=== PATIENT | female | born 1950 | race Caucasian/White ===

== ENCOUNTER 2020-08-26 08:26 | Outpatient (REF) | payer OTHER, SELFPAY ==
--- NOTE | 2020-08-26 08:48 | FL_ITS ---
EXAMINATION: XR GI SERIES CLINICAL INFORMATION: Gastroesophageal reflux disease. COMPARISON: None. TECHNIQUE: Upper GI was performed using thin and thick barium and effervescent granules. Barium tablet was also administered. FINDINGS: There is a large esophageal hernia or intrathoracic stomach. There is significant gastroesophageal reflux. No esophageal stricture, mass or mucosal irregularity is seen. The barium tablet passed into the stomach. The stomach is difficult to evaluate due to its orientation. No mass or ulcer is appreciated. No evidence of gastric outlet obstruction is seen. There are several duodenal diverticuli. There are cardiac pacemaker leads. FLUOROSCOPY TIME: 1.9 minutes. DOSE AREA PRODUCT: 16.216 Gy-cm2. IMPRESSION: Large esophageal hernia or intrathoracic stomach. Significant gastroesophageal reflux.
== END 2020-08-26 08:27 | disposition home or self-care (01) ==
LOC: HO.XRAY 08:26
PROVIDERS: PCP Internal Medicine; Visit Provider Internal Medicine
DX: K21.9 Gastro-esophageal reflux disease without esophagitis (principal); K44.9 Diaphragmatic hernia without obstruction or gangrene
CPT/HCPCS: 74240

== ENCOUNTER → 2020-09-05 11:20 | Outpatient (BNVA) | payer OTHER, SELFPAY | PROVIDERS: PCP Internal Medicine; Referring Provider Internal Medicine; Visit Provider Internal Medicine | DX: Z86.73 Personal history of transient ischemic attack (TIA), and cerebral infarction without residual deficits (principal); Z51.81 Encounter for therapeutic drug level monitoring; Z79.01 Long term (current) use of anticoagulants | CPT/HCPCS: 85610 ==

== ENCOUNTER 2020-09-12 13:44 | Outpatient (REF) | payer OTHER, SELFPAY ==
--- NOTE | 2020-11-04 16:58 | MHC.HEMONC ---
CT GUIDED Bx OF THE ABDOMEN SCHEDULED FOR 11/05/2020 RESCHEDULED (TBD), AWAITING PA (APPROVAL) STATUS. SPOKE WITH LENCHO ZEE AT 1700 TO INFORM HIM OF PROCEDURE CX
== END 2020-09-12 13:45 | disposition home or self-care (01) ==
LOC: HO.LAB 13:44
PROVIDERS: PCP Internal Medicine; Visit Provider Internal Medicine
DX: Z20.828 Contact with and (suspected) exposure to other viral communicable diseases (principal)
CPT/HCPCS: 87635

== ENCOUNTER → 2020-09-19 11:35 | Outpatient (BNVA) | payer OTHER, SELFPAY | PROVIDERS: PCP Internal Medicine; Visit Provider Internal Medicine | DX: Z86.73 Personal history of transient ischemic attack (TIA), and cerebral infarction without residual deficits (principal); Z51.81 Encounter for therapeutic drug level monitoring; Z79.01 Long term (current) use of anticoagulants | CPT/HCPCS: 85610; 99211 ==

== ENCOUNTER → 2020-09-26 11:27 | Outpatient (BNVA) | payer OTHER, SELFPAY | PROVIDERS: PCP Internal Medicine; Visit Provider Internal Medicine | DX: Z86.73 Personal history of transient ischemic attack (TIA), and cerebral infarction without residual deficits (principal); Z79.01 Long term (current) use of anticoagulants; Z51.81 Encounter for therapeutic drug level monitoring | CPT/HCPCS: 85610; 99211 ==

== ENCOUNTER → 2020-10-10 11:27 | Outpatient (BNVA) | payer OTHER, SELFPAY | PROVIDERS: PCP Internal Medicine; Visit Provider Internal Medicine | DX: Z86.73 Personal history of transient ischemic attack (TIA), and cerebral infarction without residual deficits (principal); Z51.81 Encounter for therapeutic drug level monitoring; Z79.01 Long term (current) use of anticoagulants | CPT/HCPCS: 85610; 99211 ==

== ENCOUNTER 2020-10-15 11:29 | Outpatient (REF) | payer OTHER, SELFPAY | END 2020-10-15 11:30 | disposition home or self-care (01) | LOC: HO.LAB 11:29 | PROVIDERS: PCP Internal Medicine; Visit Provider Internal Medicine | DX: Z20.828 Contact with and (suspected) exposure to other viral communicable diseases (principal) | CPT/HCPCS: C9803; U0003 ==

== ENCOUNTER → 2020-10-28 11:30 | Outpatient (BNVA) | payer OTHER, SELFPAY | PROVIDERS: PCP Internal Medicine; Referring Provider Internal Medicine; Visit Provider Internal Medicine | DX: I63.9 Cerebral infarction, unspecified (principal); Z51.81 Encounter for therapeutic drug level monitoring; Z79.01 Long term (current) use of anticoagulants | CPT/HCPCS: 85610; 99211 ==

== ENCOUNTER 2020-10-30 13:24 | Inpatient (IN) | payer OTHER, SELFPAY ==
[2020-10-30 13:28] VITALS: BP 170/84; PULSE 69; PULSE 74; RESP 19; TEMP 37; O2SAT 95; O2SAT 99; BMI 53.1
--- NOTE | 2020-10-30 13:38 | ECG_ITS ---
Test Reason : FLU LIKE SYMPTOMS Blood Pressure : / mmHG Vent. Rate : 066 BPM Atrial Rate : 066 BPM P-R Int : 106 ms QRS Dur : 184 ms QT Int : 482 ms P-R-T Axes : 082 -82 -07 degrees QTc Int : 505 ms Atrial-sensed ventricular-paced rhythm Abnormal ECG When compared with ECG of 18-DEC-2019 14:30, No significant changes seen Referred By: Ashanti Goncalves Electronically Signed By:MAX MARTINEZ
--- NOTE | 2020-10-30 13:39 | XR_ITS ---
EXAMINATION: XR CHEST CLINICAL INFORMATION: Dyspnea. COMPARISON: 12/14/2019 TECHNIQUE: Frontal view of the chest was obtained. FINDINGS: There is mild cardiac enlargement. A left chest wall 3-lead pacemaker/AICD is present with leads unchanged in position. There is a rounded dense area projecting behind the right heart border which is most likely related to the patient's hiatal hernia. No infiltrates, effusions or definite suspicious lung mass is seen. Some bibasilar atelectasis that was present previously has cleared. There is no evidence of CHF. XR/XR chest 1V IMPRESSION: No acute intrathoracic disease.
--- NOTE | 2020-10-30 13:40 | ED_ITS ---
HPI - URI/Sore Throat General Chief Complaint: Upper Respiratory Symptoms Stated Complaint: DIFFI BREATHING, NEGATIVE COVID EXPOSURE Time Seen by Provider: 10/30/20 13:39 Source: patient, EMS, old records reviewed and medical interpreter Mode of arrival: EMS Limitations: no limitations History of Present Illness MD elicited complaint: cough, rhinorrhea and other (body aches, nausea) Pertinent past history: COPD and asthma Onset (ago): day(s) (3) Consistency: constant Severity: moderate Able to tolerate fluids by mouth: Yes Exacerbating factors: nothing Relieving factors: nothing Associated symptoms: fever (subjective), chills, myalgias, headache, cough, shortness of breath and nausea Treatments prior to arrival: none Related Data Previous Rx's Medication Instructions Recorded blood sugar diagnostic 1 strip MISCELLANEOUS BID #100 08/23/20 strip nitroglycerin 0.4 mg sublingual 0.4 mg SUBLINGUAL Q5M PRN 90 Days 08/27/20 tablet #20 tab warfarin 4 mg tablet See Rx Instructions PO DAILY 30 08/29/20 Days #60 tab losartan 25 mg tablet 25 mg PO DAILY #30 tab 09/05/20 fluticasone furoate 200 1 inh INHALATION DAILY #30 cap 09/09/20 mcg/actuation blister powder for inhalation atorvastatin 40 mg tablet 40 mg PO DAILY #90 tab 10/21/20 albuterol sulfate 90 mcg/actuation 2 puff INHALATION QID PRN #8.5 g 10/25/20 aerosol inhaler clotrimazole-betamethasone 1 1 appl TOPICAL BID 14 Days #30 g 10/25/20 %-0.05 % topical cream ondansetron 4 mg PO Q8H PRN #20 tab 10/30/20 oxycodone 5 mg PO TID PRN #20 tab 10/30/20 Allergies Allergy/AdvReac Type Severity Reaction Status Date / Time No Known Allergies Allergy Verified 10/10/20 11:53 Review of Systems Review of Systems: Constitutional : pos Fever, posChills ENT/Mouth : No sore throat, No Rhinorrhea, No Swallowing Difficulty Eyes: No Eye Pain, No Swelling, No Redness Cardiovascular : No Chest Pain, positive SOB, No Orthopnea, no Edema Respiratory : pos Cough, pos Sputum, No Wheezing, positive dyspnea Gastrointestinal : pos Nausea, No Vomiting, No Diarrhea, No abdominal Pain, No Hematochezia, No Melena Genitourinary : No Dysuria, No Urinary Frequency, No Hematuria Musculoskeletal : No joint pain, pos Myalgias Skin : No Skin Lesions, No rash Neuro : pos Weakness, No Numbness, No Dizziness, No Headache Psych : No Anxiety/Panic, No Depression Heme/Lymph: No Bruising, No Lymphadenopathy Endocrine : No Polyuria, No Polydipsia All other systems reviewed and are negative FORMERLY [facility] Past Medical History Attestation statement: The following information was validated with the patient. Medical History (Updated 10/30/20 @ 16:26 by Ashanti Goncalves DO) Anxiety COPD (chronic obstructive pulmonary disease) Coronary artery disease Esophageal hernia HTN (hypertension) Pacemaker Type 2 diabetes mellitus with hyperglycemia Social History Social History (Updated 10/30/20 @ 13:58 by Ashanti Goncalves DO) Smoking Status: Never smoker Use of substances other than those prescribed or required for medical reasons: No Advance Directives: No Advance Directives Information Provided: Yes Physical Exam Vital Signs: Vital Signs: Last Vital Signs Temp 98.6 F 10/30/20 13:28 Pulse 68 10/30/20 14:32 Resp 18 10/30/20 14:32 BP 118/53 L 10/30/20 14:32 Pulse Ox 93 10/30/20 14:32 Body Mass Index 53.1 Appearance: Alert. Oriented X3. No acute distress. Eyes: Pupils equal, round and reactive to light. ENT: Pharynx normal. Neck: Normal inspection. Neck supple. CVS: Normal heart rate and rhythm. Pulses normal. Respiratory: No respiratory distress. Breath sounds slightly decreased Abdomen: Soft and non-tender. Skin: Skin warm and dry. Normal skin color. Normal skin turgor. Extremities: No lower extremity edema. No calf ttp Neuro: Oriented X 3. No motor deficit. No sensory deficit. Course Course Course Narrative: will obtain UA and CT scan of abdomen but no acute findings at this time, needs repeat troponin new pancreatic mass - will discuss this with patient likely why she is feeling ill at this time patient aware of mass, states she has had belly pain for 3 months and nausea, aware I am concerned for cancer, I offered admission but she doesn't want to stay, if her repeat troponin is negative she wants to go home signed out to Dr. Harris pending repeat troponin if it remains flat can go home MDM - URI/Sore Throat MDM Narrative Medical decision making narrative: 69 yo female with hx of COPD, afib on coumadin with PPM - will need labs, CXR, covid swab, neb, supportive medications at this time not hypoxic, dispo per results and findings. Differential Diagnosis Differential diagnosis: Likely upper respiratory infection and viral infection Lab Data Result diagrams: 10/30/20 13:54 10/30/20 13:54 Labs: Lab Results 10/30/20 10/30/20 10/30/20 Range/Units 13:54 13:54 13:54 WBC 5.1 (4.8-10.8) X10*3/uL RBC 4.49 (4.20-5.50) X10*6/uL Hgb 13.3 (12.0-16.0) g/dl Hct 39.7 (37-47) % MCV 88.4 (80-98) fL MCH 29.6 (27.0-33.0) pg MCHC 33.5 (31.0-35.0) g/dl RDW 13.1 (11.0-16.0) % Plt Count 172 (160-400) X10*3/uL MPV 9.9 (9.4-12.3) fL Immature Gran % (Auto) 0.2 (0.0-0.4) % Neut % (Auto) 62.5 (45-73) % Lymph % (Auto) 17.8 L (20-40) % Gilmer % (Auto) 7.8 (2-11) % Eos % (Auto) 11.5 H (0-4) % Baso % (Auto) 0.2 (0-2) % Lymph # (Auto) 0.9 L (1.2-4.9) X10*3/uL Gilmer # (Auto) 0.4 (0.1-1.2) X10*3/uL Eos # (Auto) 0.6 H (0.0-0.4) X10*3/uL Baso # (Auto) 0.0 (0.0-0.2) X10*3/uL Abs Immat Gran (auto) 0.01 (0.00-0.03) X10*3/uL Absolute Neuts (auto) 3.2 (2.0-8.3) X10*3/uL Absolute Nucleated RBC 0.000 (0.0-0.012) X10*3/uL Nucleated RBC % (auto) 0.0 (0.0-0.2) /100WBC PT 27.7 H (10.8-13.0) SEC INR 2.3 H (0.9-1.1) APTT 35.2 (24.1-38.0) SEC Sodium 130 L (135-145) mmol/L Potassium 4.7 (3.3-5.1) mmol/l Chloride 96 (96-108) mmol/L Carbon Dioxide 26 (22-29) mmol/L Anion Gap 13 (12-20) BUN 11 (9-16) mg/dL Creatinine 0.77 (0.5-1.4) mg/dL Estim Creat Clear Calc 100.3 Estimated GFR > 60 Random Glucose 139 H (60-115) mg/dL Lactic Acid (0.5-2.0) mmol/L Calcium 9.2 (8.4-10.2) mg/dL Magnesium 1.6 (1.6-2.6) mg/dL Total Bilirubin 0.3 (0.0-1.0) mg/dL Direct Bilirubin 0.2 (0.0-0.5) mg/dL AST 30 (5-31) U/L ALT 32 H (0-31) U/L Alkaline Phosphatase 60 (39-117) U/L Lactate Dehydrogenase 190 (122-220) U/L Troponin I High Sens (<3.5-17.0) ng/L B-Natriuretic Peptide (<100) pg/mL Total Protein 7.5 (6.5-8.0) g/dL Albumin 4.4 (3.5-5.0) g/dL Lipase 48 (8-78) U/L Urine Color Urine Appearance Urine pH (5.0-8.0) Ur Specific Rosebud (1.005-1.025) Urine Protein (NEG-TRACE) MG/DL Urine Glucose (UA) (NEG) MG/DL Urine Ketones (NEG) MG/DL Urine Blood (NEG) Urine Nitrite (NEG) Ur Leukocyte Esterase (NEG) Coronavirus (PCR) (Negative) Influenza Type A (PCR) (Negative) Influenza Type B (PCR) (Negative) RSV RNA Qual (PCR) (Negative) 10/30/20 10/30/20 10/30/20 Range/Units 13:54 13:54 13:54 WBC (4.8-10.8) X10*3/uL RBC (4.20-5.50) X10*6/uL Hgb (12.0-16.0) g/dl Hct (37-47) % MCV (80-98) fL MCH (27.0-33.0) pg MCHC (31.0-35.0) g/dl RDW (11.0-16.0) % Plt Count (160-400) X10*3/uL MPV (9.4-12.3) fL Immature Gran % (Auto) (0.0-0.4) % Neut % (Auto) (45-73) % Lymph % (Auto) (20-40) % Gilmer % (Auto) (2-11) % Eos % (Auto) (0-4) % Baso % (Auto) (0-2) % Lymph # (Auto) (1.2-4.9) X10*3/uL Gilmer # (Auto) (0.1-1.2) X10*3/uL Eos # (Auto) (0.0-0.4) X10*3/uL Baso # (Auto) (0.0-0.2) X10*3/uL Abs Immat Gran (auto) (0.00-0.03) X10*3/uL Absolute Neuts (auto) (2.0-8.3) X10*3/uL Absolute Nucleated RBC (0.0-0.012) X10*3/uL Nucleated RBC % (auto) (0.0-0.2) /100WBC PT (10.8-13.0) SEC INR (0.9-1.1) APTT (24.1-38.0) SEC Sodium (135-145) mmol/L Potassium (3.3-5.1) mmol/l Chloride (96-108) mmol/L Carbon Dioxide (22-29) mmol/L Anion Gap (12-20) BUN (9-16) mg/dL Creatinine (0.5-1.4) mg/dL Estim Creat Clear Calc Estimated GFR Random Glucose (60-115) mg/dL Lactic Acid 1.0 (0.5-2.0) mmol/L Calcium (8.4-10.2) mg/dL Magnesium (1.6-2.6) mg/dL Total Bilirubin (0.0-1.0) mg/dL Direct Bilirubin (0.0-0.5) mg/dL AST (5-31) U/L ALT (0-31) U/L Alkaline Phosphatase (39-117) U/L Lactate Dehydrogenase (122-220) U/L Troponin I High Sens (<3.5-17.0) ng/L B-Natriuretic Peptide 259 H (<100) pg/mL Total Protein (6.5-8.0) g/dL Albumin (3.5-5.0) g/dL Lipase (8-78) U/L Urine Color Urine Appearance Urine pH (5.0-8.0) Ur Specific Rosebud (1.005-1.025) Urine Protein (NEG-TRACE) MG/DL Urine Glucose (UA) (NEG) MG/DL Urine Ketones (NEG) MG/DL Urine Blood (NEG) Urine Nitrite (NEG) Ur Leukocyte Esterase (NEG) Coronavirus (PCR) NEGATIVE (Negative) Influenza Type A (PCR) NEGATIVE (Negative) Influenza Type B (PCR) NEGATIVE (Negative) RSV RNA Qual (PCR) NEGATIVE (Negative) 10/30/20 10/30/20 Range/Units 13:54 15:58 WBC (4.8-10.8) X10*3/uL RBC (4.20-5.50) X10*6/uL Hgb (12.0-16.0) g/dl Hct (37-47) % MCV (80-98) fL MCH (27.0-33.0) pg MCHC (31.0-35.0) g/dl RDW (11.0-16.0) % Plt Count (160-400) X10*3/uL MPV (9.4-12.3) fL Immature Gran % (Auto) (0.0-0.4) % Neut % (Auto) (45-73) % Lymph % (Auto) (20-40) % Gilmer % (Auto) (2-11) % Eos % (Auto) (0-4) % Baso % (Auto) (0-2) % Lymph # (Auto) (1.2-4.9) X10*3/uL Gilmer # (Auto) (0.1-1.2) X10*3/uL Eos # (Auto) (0.0-0.4) X10*3/uL Baso # (Auto) (0.0-0.2) X10*3/uL Abs Immat Gran (auto) (0.00-0.03) X10*3/uL Absolute Neuts (auto) (2.0-8.3) X10*3/uL Absolute Nucleated RBC (0.0-0.012) X10*3/uL Nucleated RBC % (auto) (0.0-0.2) /100WBC PT (10.8-13.0) SEC INR (0.9-1.1) APTT (24.1-38.0) SEC Sodium (135-145) mmol/L Potassium (3.3-5.1) mmol/l Chloride (96-108) mmol/L Carbon Dioxide (22-29) mmol/L Anion Gap (12-20) BUN (9-16) mg/dL Creatinine (0.5-1.4) mg/dL Estim Creat Clear Calc Estimated GFR Random Glucose (60-115) mg/dL Lactic Acid (0.5-2.0) mmol/L Calcium (8.4-10.2) mg/dL Magnesium (1.6-2.6) mg/dL Total Bilirubin (0.0-1.0) mg/dL Direct Bilirubin (0.0-0.5) mg/dL AST (5-31) U/L ALT (0-31) U/L Alkaline Phosphatase (39-117) U/L Lactate Dehydrogenase (122-220) U/L Troponin I High Sens 38.5 H (<3.5-17.0) ng/L B-Natriuretic Peptide (<100) pg/mL Total Protein (6.5-8.0) g/dL Albumin (3.5-5.0) g/dL Lipase (8-78) U/L Urine Color YELLOW Urine Appearance CLEAR Urine pH 7.5 (5.0-8.0) Ur Specific Rosebud 1.015 (1.005-1.025) Urine Protein TRACE (NEG-TRACE) MG/DL Urine Glucose (UA) NEG (NEG) MG/DL Urine Ketones NEG (NEG) MG/DL Urine Blood NEG (NEG) Urine Nitrite NEG (NEG) Ur Leukocyte Esterase NEG (NEG) Coronavirus (PCR) (Negative) Influenza Type A (PCR) (Negative) Influenza Type B (PCR) (Negative) RSV RNA Qual (PCR) (Negative) ECG Data Attestation: I personally reviewed and interpreted this ECG as follows: ECG interpretation date: 10/30/20 ECG interpretation time: 15:44 Interpretation: Rate: 66 Rhythm: atrial paced continuous Jewett: left Normal P waves. Normal NIK. Normal QRS complex. ST T wave : nonspecific qTC:prolonged prior studies: no change Nov 2019 The study has been interpreted contemporaneously by me. . Discharge Plan Discharge Clinical Impression: Mass of pancreas, Malaise and fatigue Abdominal pain Qualifiers: Abdominal location: epigastric Qualified Code(s): R10.13 - Epigastric pain Patient Disposition: Home, Self-Care Instructions: Acute Nausea and Vomiting (ED), Abdominal Pain (ED) Additional Instructions: your abdominal pain and nausea is likely due to a mass on your pancreas which is concerning for cancer, you were offered admission but declined, your COVID test was negative, you need to follow up with your doctor and our oncologist as soon as possible, you can come back at any time INR 2.3 Prescriptions: New ondansetron 4 mg tablet,disintegrating 4 mg PO Q8H PRN (Reason: nausea and vomiting) Qty: 20 RF: 0 oxycodone 5 mg tablet 5 mg PO TID PRN (Reason: pain) Qty: 20 RF: 0 No Action blood sugar diagnostic [OneTouch Verio test strips] Strip 1 strip miscellaneous BID Qty: 100 RF: 5 nitroglycerin 0.4 mg tablet, sublingual 0.4 mg sublingual Q5M PRN (Reason: chest pain) 90 Days Qty: 20 RF: 0 warfarin 4 mg tablet See Rx Instructions mg PO DAILY 30 Days Qty: 60 RF: 3 losartan 25 mg tablet 25 mg PO DAILY Qty: 30 RF: 5 fluticasone furoate [Arnuity Ellipta] 200 mcg/actuation blister with device 1 inh inhalation DAILY Qty: 30 RF: 5 atorvastatin 40 mg tablet 40 mg PO DAILY Qty: 90 RF: 1 clotrimazole-betamethasone 1-0.05 % cream 1 appl topical BID 14 Days Qty: 30 RF: 0 albuterol sulfate 90 mcg/actuation HFA aerosol inhaler 2 puff inhalation QID PRN (Reason: for wheezing) Qty: 8.5 RF: 0 Referrals: Mervin Cifuentes MD [Physician] - 2 days (call for soon appointment) Physician,Unknown [Primary Care Provider] - 2 days (your PCP as soon as possible) Print Language: Brazilian
[2020-10-30 14:02] LABS: MANUAL DIFF FLAG NO
[2020-10-30 14:07] LABS: Basophils Percent Auto 0.2 % (0-2); Eosinophils Absolute Auto 0.6 X10*3/uL (0.0-0.4); Eosinophils Percent Auto 11.5 % (0-4); Hematocrit 39.7 % (37-47); Hemoglobin 13.3 g/dl (12.0-16.0); Imm Gran Abs Auto 0.01 X10*3/uL (0.00-0.03); Imm Gran Pct Auto 0.2 % (0.0-0.4); Lymphocytes Absolute Auto 0.9 X10*3/uL (1.2-4.9); Lymphocytes Percent Auto 17.8 % (20-40); Mean Corpuscular HGB Conc 33.5 g/dl (31.0-35.0); Mean Corpuscular Hemoglobin 29.6 pg (27.0-33.0); Mean Corpuscular Volume 88.4 fL (80-98); Mean Platelet Volume 9.9 fL (9.4-12.3); Monocytes Absolute Auto 0.4 X10*3/uL (0.1-1.2); Monocytes Percent Auto 7.8 % (2-11); Neutrophils Absolute Auto 3.2 X10*3/uL (2.0-8.3); Neutrophils Percent Auto 62.5 % (45-73); Platelet Count 172 X10*3/uL (160-400); Red Blood Count 4.49 X10*6/uL (4.20-5.50); Red Cell Distribution Width 13.1 % (11.0-16.0); White Blood Count 5.1 X10*3/uL (4.8-10.8)
[2020-10-30] MEDS: Albuterol Sulfate (0.083%) 2.5 MG/3 ML VIAL.NEB INHALE (14:08)
[2020-10-30 14:09] VITALS: PULSE 68; O2SAT 94
[2020-10-30 14:10] LABS: INTERNATIONAL NORM RATIO 2.3 (0.9-1.1); Prothrombin Time 27.7 SEC (10.8-13.0)
[2020-10-30 14:12] LABS: Partial Thromboplastin Time 35.2 SEC (24.1-38.0)
[2020-10-30] MEDS: HYDROcodone/Homat 5/1.5/5 ML 5 ML SYRUP PO (14:28)
[2020-10-30] MEDS: ondansetron HCL 4 MG/2 ML VIAL IVPUSH ×2 (14:29→20:39)
[2020-10-30 14:32] VITALS: BP 118/53; PULSE 68; RESP 18; O2SAT 93
[2020-10-30 14:41] LABS: Influenza A PCR NEGATIVE (Negative); Influenza B PCR NEGATIVE (Negative); Resp Syncy Virus RNA Qual PCR NEGATIVE (Negative); SARS COV2 PCR INHOUSE NEGATIVE (Negative)
[2020-10-30 14:47] LABS: Alanine Aminotransferase 32 U/L (0-31); Albumin Level 4.4 g/dL (3.5-5.0); Alkaline Phosphatase 60 U/L (39-117); Anion Gap 13 (12-20); Aspartate Amino Transferase 30 U/L (5-31); Bilirubin Direct 0.2 mg/dL (0.0-0.5); Bilirubin Total 0.3 mg/dL (0.0-1.0); Blood Urea Nitrogen 11 mg/dL (9-16); Calcium 9.2 mg/dL (8.4-10.2); Carbon Dioxide 26 mmol/L (22-29); Chloride 96 mmol/L (96-108); Creatinine Clr Calc Pharmacy 100.3; Estimated Glomerular Filt Rate > 60; Glucose Random 139 mg/dL (60-115); Lactate Dehydrogenase 190 U/L (122-220); Lipase 48 U/L (8-78); Magnesium 1.6 mg/dL (1.6-2.6); Potassium 4.7 mmol/l (3.3-5.1); Sodium 130 mmol/L (135-145); Total Protein 7.5 g/dL (6.5-8.0)
[2020-10-30 14:53] LABS: B Type Natriuretic Peptide 259 pg/mL (<100)
--- NOTE | 2020-10-30 14:55 | CT_ITS ---
EXAMINATION: CT ABDOMEN AND PELVIS WITHOUT CONTRAST CLINICAL INFORMATION: Diffuse abdominal pain, nausea and diarrhea COMPARISON: Previous CT of the abdomen and pelvis August 2017 and renal ultrasound July 2020 TECHNIQUE: Multidetector volumetric imaging was performed from the superior aspect of the liver through the pubic symphysis. Sagittal and coronal reformatted images were obtained on the technologist's workstation. This CT examination was performed using dose optimization techniques as appropriate, variously including the following: *Automated exposure control *Adjustment of mA and/or kV according to patient size (this includes techniques or standardized protocols for targeted exams where dose is matched to indication/reason for exam; i.e. extremities or head) *Use of iterative reconstruction technique DLP: 524 mGy-cm FINDINGS: LUNG BASES: There are new bilateral pulmonary nodules. Largest pulmonary nodule measures 4 mm in the left lower lobe. The heart is enlarged. There are pacemaker leads. There is a large esophageal hernia or intrathoracic stomach. There is a scarring or subsegmental atelectasis in the right lower lobe. LIVER, GALLBLADDER, AND BILIARY TREE: The liver is normal in size, shape, and attenuation. No focal hepatic lesion or biliary ductal dilatation is present. The gallbladder is unremarkable with no evidence of radiopaque gallstones, gallbladder wall thickening, or obvious pericholecystic inflammatory changes. PANCREAS: There is abnormal appearance to the head, neck and body the pancreas concerning for a mass. This is slightly lobulated in shape and measures approximately 4.5 x 6.5 cm in AP and transverse dimension axial image 22 series 3. This has a small peripheral low-attenuation area anterior superiorly. The pancreas appears smaller in length compared to older exam from 2017. There are adjacent upper abdominal varices. SPLEEN: Unremarkable. ADRENAL GLANDS: Unremarkable. KIDNEYS AND URETERS: The kidneys are normal in size, shape, and attenuation. No hydronephrosis, hydroureter, or calculi seen. No perinephric stranding. BLADDER: Unremarkable. GASTROINTESTINAL TRACT: There is diverticulosis of the colon. No evidence of diverticulitis is seen. There is a large duodenal diverticulum adjacent to the head of the pancreas. Small and large bowel is otherwise unremarkable. There is a large esophageal hernia or intrathoracic stomach ABDOMINAL WALL: There may be postsurgical changes to the anterior abdominal wall. There is right paracentral bulge containing fat. No definite hernia is seen. LYMPH NODES: There are small small bowel mesentery and lymph nodes. There are small lymph nodes seen surrounding the pancreatic head and in the periportal region. No enlarged lymph nodes are seen. There is no ascites. VASCULAR: There are abdominal varices. PELVIC VISCERA: There is a partially calcified 1.8 x 2.5 cm left uterine lesions suggestive of a fibroid. Uterus and adnexa are otherwise unremarkable. OSSEOUS STRUCTURES: There are degenerative changes of the spine. CT/CT abdomen pelvis wo con IMPRESSION: New mass in the head, neck and body the pancreas measuring 4.5 x 6.5 cm worrisome for neoplasm. New bilateral pulmonary nodules. Upper abdominal varices. Large esophageal hernia or intrathoracic stomach. Diverticulosis of the colon. Probable small uterine fibroid.
[2020-10-30 14:57] LABS: Troponin-I High Sensitivity 38.5 ng/L (<3.5-17.0)
[2020-10-30 16:09] LABS: Glucose Urine UA NEG (NEG); Leukocyte Esterase Urine NEG (NEG); Nitrite Urine NEG (NEG); PH 7.5 (5.0-8.0); Specific Gravity - Urine 1.015 (1.005-1.025); Urine Blood NEG (NEG); Urine Ketones NEG (NEG); Urine Protein TRACE MG/DL (NEG-TRACE)
[2020-10-30 16:10] LABS: Appearance Urine CLEAR; Color Urine YELLOW
[2020-10-30 17:57] LABS: Troponin-I High Sensitivity 37.1 ng/L (<3.5-17.0)
[2020-10-30 18:00] VITALS: BP 152/65; PULSE 60; RESP 18; O2SAT 99
--- NOTE | 2020-10-30 18:55 | ED.ABDPAIN ---
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 Goncalves to follow-up on the patient's 2nd troponin, the patient was noted to have a pancreatic mass but refused admission, after discussing the case with her son, patient changed her mind likely be admitted for further evaluation of her abdominal pain and workup of her abdominal mass. 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 The patient states that she has been having abdominal pain for approximately 2 months. She points to her periumbilical area when asked to describe the pain. She describes the pain as an inflamed pain and amlodipine which is 8/10 as worst. She states the pain is intermittent but can not describe the intervals. She states that she does have pain in her whole back into describes as stiffness. She has associated nausea with no vomiting. She denied weight loss or gain. She states she has had intermittent chills but no fever. She has had an occasional cough. She states she does have shortness of breath and dyspnea on exertion. She is complaining of feeling very fatigued. She states that she did see her PCP for abdominal pain was told that it could be related to a hernia. She states that she did have a hernia repair in the past. The patient is on Coumadin for a stroke but she states that she had 2 years prior. MD elicited complaint: abdominal pain Pertinent past history: none Onset (ago): month(s) (1-2) Pain Consistency: intermittent Location: periumbilical Severity: severe Pain scale (0-10): 8 Quality: other (Inflammatory pain, bloated pain) Radiation: none Relieving factors: nothing Associated symptoms: nausea Related Data Previous Rx's Medication Instructions Recorded blood sugar diagnostic 1 strip MISCELLANEOUS BID #100 08/23/20 strip nitroglycerin 0.4 mg sublingual 0.4 mg SUBLINGUAL Q5M PRN 90 Days 08/27/20 tablet #20 tab warfarin 4 mg tablet See Rx Instructions PO DAILY 30 08/29/20 Days #60 tab losartan 25 mg tablet 25 mg PO DAILY #30 tab 09/05/20 fluticasone furoate 200 1 inh INHALATION DAILY #30 cap 09/09/20 mcg/actuation blister powder for inhalation atorvastatin 40 mg tablet 40 mg PO DAILY #90 tab 10/21/20 albuterol sulfate 90 mcg/actuation 2 puff INHALATION QID PRN #8.5 g 10/25/20 aerosol inhaler clotrimazole-betamethasone 1 1 appl TOPICAL BID 14 Days #30 g 10/25/20 %-0.05 % topical cream ondansetron 4 mg PO Q8H PRN #20 tab 10/30/20 oxycodone 5 mg PO TID PRN #20 tab 10/30/20 Allergies Allergy/AdvReac Type Severity Reaction Status Date / Time No Known Allergies Allergy Verified 10/10/20 11:53 Review of Systems Review of Systems Yes all other systems are reviewed and are negative Constitutional: Reports as per HPI Eyes: Reports as per HPI Reports as per HPI Cardiovascular: Reports as per HPI Respiratory: Reports as per HPI Gastrointestinal: Reports as per HPI Genitourinary: Reports as per HPI Musculoskeletal: Reports as per HPI Skin/Breast: Reports as per HPI Reports as per HPI and Reports Abnormal speech present Psychiatric: Reports as per HPI Allergic/Immunologic: Reports as per HPI Physical Exam Vital Signs: Vital Signs: Last Vital Signs Temp 98.6 F 10/30/20 13:28 Pulse 60 10/30/20 18:00 Resp 18 10/30/20 18:00 BP 152/65 H 10/30/20 18:00 Pulse Ox 99 10/30/20 18:00 Body Mass Index 53.1 Const: General: cooperative, no acute distress, alert and awake Orientation/consciousness: oriented to person and oriented to place Limitations: no limitations HENMT: Head: Yes normal to inspection, Yes normocephalic and Yes atraumatic Ears: external ears normal Eyes: General: appearance normal, both eyes and all related structures Periorbital: periorbital findings normal Eyelids: Yes eyelids normal Conjunctivae: conjunctivae normal Sclerae: sclerae normal Corneas: corneas normal Pupils: Equal, round and reactive pupils present Direct Ophthalmoscopy: normal light reflex Neck: Neck: Yes normal visual inspection and Yes supple Lymphatic: no lymphadenopathy noted Chest: Chest palpation & inspection: normal inspection of the chest and normal palpation of entire chest wall Resp: Effort & Inspection: normal respiratory effort, abnormal respiratory pattern, no audible wheezes and no respiratory distress Auscultation: clear to auscultation bilaterally, no crackles, no rales, no rhonchi and no wheezes Cardio: Rate: regular rate Rhythm: regular rhythm Heart sounds: S1 normal heart sound present, S2 normal heart sound present and no murmurs GI: Inspection: No distended Palpation (GI): Soft to palpation, Tenderness to palpation present (GI) periumbilically (Moderate), no guarding and No hepatosplenomegaly present Auscultation: normal bowel sounds : General: Yes no CVA tenderness Back/Spine/Pelvis: Back: no CVA tenderness Skin: General skin exam: no rashes or lesions noted Lesions: no lesions Rashes: no rashes Wounds: no wounds Neuro: General: oriented to person and oriented to place Cranial nerves: Yes CN's II-XII intact bilaterally and Yes Equal, round and reactive pupils present Cognition (Neuro): normal cognition Speech: Abnormal speech present Motor exam (neuro): 5/5 motor strength present throughout Extrem: General: Yes normal to inspection, Yes full ROM, Yes no pedal edema and Yes no calf tenderness Psych: Appearance: grossly normal Mental Status: mental status grossly normal Speech and movement: Clear speech present Affect: normal affect Thought process: Normal thought process present Course Course Course Narrative: 69-year-old female who presented to the emergency department for evaluation of abdominal pain, initially evaluated by my colleague, and signed out to me pending her 2nd troponin. The patient's 1st troponin was 38.5 and 2nd troponin was 37.1 suggesting that her symptoms are not related to myocardial injury. 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 She also had bilateral pulmonary nodules. The patient initially refused admission but after talking to her son she does agree to be admitted for further workup of her pancreatic mass. I will discuss the patient's presentation with the covering hospitalist. 2008: I did discuss the patient with the covering hospitalist, Dr. Umana and the patient will be admitted to the hospitalist service for further evaluation of her pancreatic mass. MDM - Abdominal Pain Lab Data Result diagrams: 10/30/20 13:54 10/30/20 13:54 Labs: Lab Results 10/30/20 10/30/20 10/30/20 Range/Units 13:54 13:54 13:54 WBC 5.1 (4.8-10.8) X10*3/uL RBC 4.49 (4.20-5.50) X10*6/uL Hgb 13.3 (12.0-16.0) g/dl Hct 39.7 (37-47) % MCV 88.4 (80-98) fL MCH 29.6 (27.0-33.0) pg MCHC 33.5 (31.0-35.0) g/dl RDW 13.1 (11.0-16.0) % Plt Count 172 (160-400) X10*3/uL MPV 9.9 (9.4-12.3) fL Immature Gran % (Auto) 0.2 (0.0-0.4) % Neut % (Auto) 62.5 (45-73) % Lymph % (Auto) 17.8 L (20-40) % Harvey % (Auto) 7.8 (2-11) % Eos % (Auto) 11.5 H (0-4) % Baso % (Auto) 0.2 (0-2) % Lymph # (Auto) 0.9 L (1.2-4.9) X10*3/uL Harvey # (Auto) 0.4 (0.1-1.2) X10*3/uL Eos # (Auto) 0.6 H (0.0-0.4) X10*3/uL Baso # (Auto) 0.0 (0.0-0.2) X10*3/uL Abs Immat Gran (auto) 0.01 (0.00-0.03) X10*3/uL Absolute Neuts (auto) 3.2 (2.0-8.3) X10*3/uL Absolute Nucleated RBC 0.000 (0.0-0.012) X10*3/uL Nucleated RBC % (auto) 0.0 (0.0-0.2) /100WBC PT 27.7 H (10.8-13.0) SEC INR 2.3 H (0.9-1.1) APTT 35.2 (24.1-38.0) SEC Sodium 130 L (135-145) mmol/L Potassium 4.7 (3.3-5.1) mmol/l Chloride 96 (96-108) mmol/L Carbon Dioxide 26 (22-29) mmol/L Anion Gap 13 (12-20) BUN 11 (9-16) mg/dL Creatinine 0.77 (0.5-1.4) mg/dL Estim Creat Clear Calc 100.3 Estimated GFR > 60 Random Glucose 139 H (60-115) mg/dL Lactic Acid (0.5-2.0) mmol/L Calcium 9.2 (8.4-10.2) mg/dL Magnesium 1.6 (1.6-2.6) mg/dL Total Bilirubin 0.3 (0.0-1.0) mg/dL Direct Bilirubin 0.2 (0.0-0.5) mg/dL AST 30 (5-31) U/L ALT 32 H (0-31) U/L Alkaline Phosphatase 60 (39-117) U/L Lactate Dehydrogenase 190 (122-220) U/L Troponin I High Sens (<3.5-17.0) ng/L B-Natriuretic Peptide (<100) pg/mL Total Protein 7.5 (6.5-8.0) g/dL Albumin 4.4 (3.5-5.0) g/dL Lipase 48 (8-78) U/L Urine Color Urine Appearance Urine pH (5.0-8.0) Ur Specific Monroe (1.005-1.025) Urine Protein (NEG-TRACE) MG/DL Urine Glucose (UA) (NEG) MG/DL Urine Ketones (NEG) MG/DL Urine Blood (NEG) Urine Nitrite (NEG) Ur Leukocyte Esterase (NEG) Coronavirus (PCR) (Negative) Influenza Type A (PCR) (Negative) Influenza Type B (PCR) (Negative) RSV RNA Qual (PCR) (Negative) 10/30/20 10/30/20 10/30/20 Range/Units 13:54 13:54 13:54 WBC (4.8-10.8) X10*3/uL RBC (4.20-5.50) X10*6/uL Hgb (12.0-16.0) g/dl Hct (37-47) % MCV (80-98) fL MCH (27.0-33.0) pg MCHC (31.0-35.0) g/dl RDW (11.0-16.0) % Plt Count (160-400) X10*3/uL MPV (9.4-12.3) fL Immature Gran % (Auto) (0.0-0.4) % Neut % (Auto) (45-73) % Lymph % (Auto) (20-40) % Harvey % (Auto) (2-11) % Eos % (Auto) (0-4) % Baso % (Auto) (0-2) % Lymph # (Auto) (1.2-4.9) X10*3/uL Harvey # (Auto) (0.1-1.2) X10*3/uL Eos # (Auto) (0.0-0.4) X10*3/uL Baso # (Auto) (0.0-0.2) X10*3/uL Abs Immat Gran (auto) (0.00-0.03) X10*3/uL Absolute Neuts (auto) (2.0-8.3) X10*3/uL Absolute Nucleated RBC (0.0-0.012) X10*3/uL Nucleated RBC % (auto) (0.0-0.2) /100WBC PT (10.8-13.0) SEC INR (0.9-1.1) APTT (24.1-38.0) SEC Sodium (135-145) mmol/L Potassium (3.3-5.1) mmol/l Chloride (96-108) mmol/L Carbon Dioxide (22-29) mmol/L Anion Gap (12-20) BUN (9-16) mg/dL Creatinine (0.5-1.4) mg/dL Estim Creat Clear Calc Estimated GFR Random Glucose (60-115) mg/dL Lactic Acid 1.0 (0.5-2.0) mmol/L Calcium (8.4-10.2) mg/dL Magnesium (1.6-2.6) mg/dL Total Bilirubin (0.0-1.0) mg/dL Direct Bilirubin (0.0-0.5) mg/dL AST (5-31) U/L ALT (0-31) U/L Alkaline Phosphatase (39-117) U/L Lactate Dehydrogenase (122-220) U/L Troponin I High Sens (<3.5-17.0) ng/L B-Natriuretic Peptide 259 H (<100) pg/mL Total Protein (6.5-8.0) g/dL Albumin (3.5-5.0) g/dL Lipase (8-78) U/L Urine Color Urine Appearance Urine pH (5.0-8.0) Ur Specific Monroe (1.005-1.025) Urine Protein (NEG-TRACE) MG/DL Urine Glucose (UA) (NEG) MG/DL Urine Ketones (NEG) MG/DL Urine Blood (NEG) Urine Nitrite (NEG) Ur Leukocyte Esterase (NEG) Coronavirus (PCR) NEGATIVE (Negative) Influenza Type A (PCR) NEGATIVE (Negative) Influenza Type B (PCR) NEGATIVE (Negative) RSV RNA Qual (PCR) NEGATIVE (Negative) 10/30/20 10/30/20 10/30/20 Range/Units 13:54 15:58 17:14 WBC (4.8-10.8) X10*3/uL RBC (4.20-5.50) X10*6/uL Hgb (12.0-16.0) g/dl Hct (37-47) % MCV (80-98) fL MCH (27.0-33.0) pg MCHC (31.0-35.0) g/dl RDW (11.0-16.0) % Plt Count (160-400) X10*3/uL MPV (9.4-12.3) fL Immature Gran % (Auto) (0.0-0.4) % Neut % (Auto) (45-73) % Lymph % (Auto) (20-40) % Harvey % (Auto) (2-11) % Eos % (Auto) (0-4) % Baso % (Auto) (0-2) % Lymph # (Auto) (1.2-4.9) X10*3/uL Harvey # (Auto) (0.1-1.2) X10*3/uL Eos # (Auto) (0.0-0.4) X10*3/uL Baso # (Auto) (0.0-0.2) X10*3/uL Abs Immat Gran (auto) (0.00-0.03) X10*3/uL Absolute Neuts (auto) (2.0-8.3) X10*3/uL Absolute Nucleated RBC (0.0-0.012) X10*3/uL Nucleated RBC % (auto) (0.0-0.2) /100WBC PT (10.8-13.0) SEC INR (0.9-1.1) APTT (24.1-38.0) SEC Sodium (135-145) mmol/L Potassium (3.3-5.1) mmol/l Chloride (96-108) mmol/L Carbon Dioxide (22-29) mmol/L Anion Gap (12-20) BUN (9-16) mg/dL Creatinine (0.5-1.4) mg/dL Estim Creat Clear Calc Estimated GFR Random Glucose (60-115) mg/dL Lactic Acid (0.5-2.0) mmol/L Calcium (8.4-10.2) mg/dL Magnesium (1.6-2.6) mg/dL Total Bilirubin (0.0-1.0) mg/dL Direct Bilirubin (0.0-0.5) mg/dL AST (5-31) U/L ALT (0-31) U/L Alkaline Phosphatase (39-117) U/L Lactate Dehydrogenase (122-220) U/L Troponin I High Sens 38.5 H 37.1 H (<3.5-17.0) ng/L B-Natriuretic Peptide (<100) pg/mL Total Protein (6.5-8.0) g/dL Albumin (3.5-5.0) g/dL Lipase (8-78) U/L Urine Color YELLOW Urine Appearance CLEAR Urine pH 7.5 (5.0-8.0) Ur Specific Monroe 1.015 (1.005-1.025) Urine Protein TRACE (NEG-TRACE) MG/DL Urine Glucose (UA) NEG (NEG) MG/DL Urine Ketones NEG (NEG) MG/DL Urine Blood NEG (NEG) Urine Nitrite NEG (NEG) Ur Leukocyte Esterase NEG (NEG) Coronavirus (PCR) (Negative) Influenza Type A (PCR) (Negative) Influenza Type B (PCR) (Negative) RSV RNA Qual (PCR) (Negative) Discharge Plan Discharge Clinical Impression: Abdominal pain, Mass of pancreas, Malaise and fatigue Patient Disposition: Admitted As Inpatient Instructions: Acute Nausea and Vomiting (ED), Abdominal Pain (ED) Additional Instructions: your abdominal pain and nausea is likely due to a mass on your pancreas which is concerning for cancer, you were offered admission but declined, your COVID test was negative, you need to follow up with your doctor and our oncologist as soon as possible, you can come back at any time INR 2.3 Prescriptions: New ondansetron 4 mg tablet,disintegrating 4 mg PO Q8H PRN (Reason: nausea and vomiting) Qty: 20 RF: 0 oxycodone 5 mg tablet 5 mg PO TID PRN (Reason: pain) Qty: 20 RF: 0 No Action blood sugar diagnostic [OneTouch Verio test strips] Strip 1 strip miscellaneous BID Qty: 100 RF: 5 nitroglycerin 0.4 mg tablet, sublingual 0.4 mg sublingual Q5M PRN (Reason: chest pain) 90 Days Qty: 20 RF: 0 warfarin 4 mg tablet See Rx Instructions mg PO DAILY 30 Days Qty: 60 RF: 3 losartan 25 mg tablet 25 mg PO DAILY Qty: 30 RF: 5 fluticasone furoate [Arnuity Ellipta] 200 mcg/actuation blister with device 1 inh inhalation DAILY Qty: 30 RF: 5 atorvastatin 40 mg tablet 40 mg PO DAILY Qty: 90 RF: 1 clotrimazole-betamethasone 1-0.05 % cream 1 appl topical BID 14 Days Qty: 30 RF: 0 albuterol sulfate 90 mcg/actuation HFA aerosol inhaler 2 puff inhalation QID PRN (Reason: for wheezing) Qty: 8.5 RF: 0 Referrals: Mervin Cifuentes MD [Physician] - 2 days (call for soon appointment) Physician,Mary [Primary Care Provider] - 2 days (your PCP as soon as possible) Print Language: [place]ian [facility] Past Medical History Medical History Anxiety COPD (chronic obstructive pulmonary disease) Coronary artery disease Esophageal hernia HTN (hypertension) Pacemaker Type 2 diabetes mellitus with hyperglycemia Social History Social History Smoking Status: Never smoker Use of substances other than those prescribed or required for medical reasons: No Advance Directives: No Advance Directives Information Provided: Yes
--- NOTE | 2020-10-30 19:39 | PC.NURSE ---
ASSUMED CARE OF PT. PT RESTING IN STRETCHER FOR ADMISSION. PT UP AND AMBULATES WITH STEADY EVEN GAIT TO RESTROOM. PT DENIES ANY COMPLAINTS BUT REQUESTING FOOD. PT AWAITING FOR BED ASSIGNMENT. WILL CONTINUE TO MONITOR PT.
[2020-10-30 20:28] VITALS: BP 147/66; PULSE 61; RESP 18; O2SAT 96
[2020-10-30] MEDS: Morphine Sulfate 4 MG/ML CARTRIDGE IVPUSH (20:39)
[2020-10-30 23:04] VITALS: BP 122/69; PULSE 60; RESP 16; O2SAT 97
--- NOTE | 2020-10-30 23:08 | PC.NURSE ---
REPORT GIVEN TO MARGARETH SCHULTZ. PT AWAITING FOR TRANSPORT TO FLOOR.
--- NOTE | 2020-10-30 23:34 | PC.NURSE ---
PT TO FLOOR ON STRETCHER AT THIS TIME. PT LEFT ED IN NAD.
[2020-10-31] VITALS (8 sets, daily range): BP systolic 102–157; BP diastolic 59–77; PULSE 60–65; RESP 14–20; TEMP 35.9–37; O2SAT 92–99; BMI 24.2
[2020-10-31] MEDS: Acetaminophen 325 MG TABLET 650 MG PO ×3 (00:30→21:05)
[2020-10-31] MEDS: 0.9 % Sodium Chloride Flush 3 ML SYRINGE IVFLUSH ×4 (00:33→23:27)
--- NOTE | 2020-10-31 00:46 | PM.IMHP ---
History of Present Illness Date of Service: 10/30/20 Chief Complaint: abdominal pain this is a 69-year-old female with past medical history of diabetes, COPD, CVA, hypertension who presents to the hospital with complaints of abdominal pain. Patient is French-speaking and history is obtained with the help of water leak repairer. Patient is complaining of pain all over , on her abdomen, back, chest, legs. Patient reports that the abdominal pain has been going on for 2 months but worsened over the past 3 days. The pain is generalized abdominal pain, 8/10, intermittent, nonradiating, associated with nausea and vomiting, she also has occasional chills with no fever. She reports the pain to be just generalized discomfort. When asked about weight loss she reports about 1-2 lb of weight loss but not more. She is also complaining of years of shortness of breath with no change. She has no urinary symptoms and no lower extremity edema. Patient is also complaining of bloating, and low appetite. A temp of 98.6?, pulse rate of 69, respiratory rate of 19, and oxygen saturation of 95% on room air. Labs are significant for PT of 27.7 INR of 2.3, sodium of 130, BUN of 11 with creatinine of 0.77, troponin 38 trended down to 37, BNP of 259, CT abdomen showed new mass in the head neck and body of the pancreas measuring 4.5 x 6.5 cm worrisome for neoplasm. New bilateral pulmonary nodules. Upper abdominal varices. Large esophageal hernia. Patient will be admitted for further evaluation Past medical history: CAD, ischemic cardiomyopathy with an ejection fraction 20-30%, chronic left bundle-branch block, fibromyalgia, chronic pain, acid reflux, hypertension, type 2 diabetes, COPD, asthma, history of TIA Past surgical history: Status post pacemaker AICD placement in 2017, appendectomy, bilateral inguinal hernia repair, partial colectomy, tubal ligation Family history: Coronary artery disease and asthma Social history: Patient resides alone, walks mostly independent but sometimes uses a walker, denies use of tobacco alcohol or illicit drugs Review of Systems Review of Systems: Yes all other systems are reviewed and are negative Neurologic: Reports as per HPI and Reports Abnormal speech present [facility] Medical History (Updated 10/31/20 @ 01:20 by Diane Umana MD) Anxiety COPD (chronic obstructive pulmonary disease) Coronary artery disease Esophageal hernia HTN (hypertension) Pacemaker Type 2 diabetes mellitus with hyperglycemia Social History Household Members: Family Housing: House Do you presently have visiting nurse or other home services: No Smoking Status: Never smoker Use of substances other than those prescribed or required for medical reasons: No Have you been hit, kicked, punched, or otherwise hurt by someone within the past year? If so, by whom?: No Do you feel safe in your current relationship?: Yes Is there a partner from a previous relationship who is making you feel unsafe now?: No Are you made to feel afraid or neglected: No Advance Directives: No Advance Directives Information Provided: Yes Do you have thoughts of harming others: None Do you have a plan to hurt others: No Plan Recently lost weight without trying: No Meds Allergies Allergy/AdvReac Type Severity Reaction Status Date / Time No Known Allergies Allergy Verified 10/10/20 11:53 Home Medications Medication Instructions Recorded Confirmed Type aspirin 81 mg PO DAILY 10/30/20 10/30/20 History calcium carbonate-vitamin D3 1 tab PO BID 10/30/20 10/30/20 History carbamazepine 100 mg PO BID 10/30/20 10/30/20 History carbamazepine 200 mg PO DAILY 10/30/20 10/30/20 History ferrous gluconate 324 mg PO DAILY 10/30/20 10/30/20 History gabapentin 300 mg PO BID 10/30/20 10/30/20 History metformin 500 mg PO DAILY 10/30/20 10/30/20 History metoprolol succinate 200 mg PO DAILY 10/30/20 10/30/20 History omeprazole 40 mg PO DAILY 10/30/20 10/30/20 History tiotropium bromide [Spiriva with 1 cap INHALATION DAILY 10/30/20 10/30/20 History HandiHaler] Physical Exam Vital Signs and Narrative: Vital Signs: Last Vital Signs Temp 98.4 F 10/31/20 00:00 Pulse 65 10/31/20 00:00 Resp 14 10/31/20 00:00 BP 157/77 H 10/31/20 00:00 Pulse Ox 99 10/31/20 00:00 Body Mass Index 53.1 Const: General: cooperative and no acute distress Orientation/consciousness: patient oriented x3 Eyes: General: appearance normal, both eyes and all related structures Pupils: Equal, round and reactive pupils present Resp: Effort & Inspection: normal respiratory effort and able to speak in complete sentences Auscultation: clear to auscultation bilaterally Cardio: Rate: regular rate Rhythm: regular rhythm GI: Other: No abdominal tenderness on palpation, no rebound, no guarding Palpation (GI): Soft to palpation Skin: General skin exam: no rashes or lesions noted Neuro: General: patient oriented x3 Cranial nerves: Yes Equal, round and reactive pupils present Cognition (Neuro): normal cognition Speech: Abnormal speech present Extrem: General: Yes normal to inspection and Yes no pedal edema Results Labs CBC and Chem 7: 10/30/20 13:54 10/30/20 13:54 Labs: Laboratory Results - last 24 hr 10/30/20 10/30/20 10/30/20 13:54 13:54 13:54 MCV 88.4 MCH 29.6 MCHC 33.5 RDW 13.1 Plt Count 172 MPV 9.9 Immature Gran % (Auto) 0.2 Neut % (Auto) 62.5 Lymph % (Auto) 17.8 L [place] % (Auto) 7.8 Eos % (Auto) 11.5 H Baso % (Auto) 0.2 Lymph # (Auto) 0.9 L [place] # (Auto) 0.4 Eos # (Auto) 0.6 H Baso # (Auto) 0.0 Abs Immat Gran (auto) 0.01 Absolute Neuts (auto) 3.2 Absolute Nucleated RBC 0.000 Nucleated RBC % (auto) 0.0 PT 27.7 H INR 2.3 H APTT 35.2 Anion Gap 13 Estim Creat Clear Calc 100.3 Estimated GFR > 60 Random Glucose 139 H Lactic Acid Calcium 9.2 Magnesium 1.6 Total Bilirubin 0.3 Direct Bilirubin 0.2 AST 30 ALT 32 H Alkaline Phosphatase 60 Lactate Dehydrogenase 190 Troponin I High Sens B-Natriuretic Peptide Total Protein 7.5 Albumin 4.4 Lipase 48 Carcinoembryonic Ag Urine Color Urine Appearance Urine pH Ur Specific [place] Urine Protein Urine Glucose (UA) Urine Ketones Urine Blood Urine Nitrite Ur Leukocyte Esterase Coronavirus (PCR) Influenza Type A (PCR) Influenza Type B (PCR) RSV RNA Qual (PCR) 10/30/20 10/30/20 10/30/20 13:54 13:54 13:54 MCV MCH MCHC RDW Plt Count MPV Immature Gran % (Auto) Neut % (Auto) Lymph % (Auto) [place] % (Auto) Eos % (Auto) Baso % (Auto) Lymph # (Auto) [place] # (Auto) Eos # (Auto) Baso # (Auto) Abs Immat Gran (auto) Absolute Neuts (auto) Absolute Nucleated RBC Nucleated RBC % (auto) PT INR APTT Anion Gap Estim Creat Clear Calc Estimated GFR Random Glucose Lactic Acid 1.0 Calcium Magnesium Total Bilirubin Direct Bilirubin AST ALT Alkaline Phosphatase Lactate Dehydrogenase Troponin I High Sens B-Natriuretic Peptide 259 H Total Protein Albumin Lipase Carcinoembryonic Ag Urine Color Urine Appearance Urine pH Ur Specific [place] Urine Protein Urine Glucose (UA) Urine Ketones Urine Blood Urine Nitrite Ur Leukocyte Esterase Coronavirus (PCR) NEGATIVE Influenza Type A (PCR) NEGATIVE Influenza Type B (PCR) NEGATIVE RSV RNA Qual (PCR) NEGATIVE 10/30/20 10/30/20 10/30/20 13:54 15:58 17:14 MCV MCH MCHC RDW Plt Count MPV Immature Gran % (Auto) Neut % (Auto) Lymph % (Auto) [place] % (Auto) Eos % (Auto) Baso % (Auto) Lymph # (Auto) [place] # (Auto) Eos # (Auto) Baso # (Auto) Abs Immat Gran (auto) Absolute Neuts (auto) Absolute Nucleated RBC Nucleated RBC % (auto) PT INR APTT Anion Gap Estim Creat Clear Calc Estimated GFR Random Glucose Lactic Acid Calcium Magnesium Total Bilirubin Direct Bilirubin AST ALT Alkaline Phosphatase Lactate Dehydrogenase Troponin I High Sens 38.5 H 37.1 H B-Natriuretic Peptide Total Protein Albumin Lipase Carcinoembryonic Ag Urine Color YELLOW Urine Appearance CLEAR Urine pH 7.5 Ur Specific [place] 1.015 Urine Protein TRACE Urine Glucose (UA) NEG Urine Ketones NEG Urine Blood NEG Urine Nitrite NEG Ur Leukocyte Esterase NEG Coronavirus (PCR) Influenza Type A (PCR) Influenza Type B (PCR) RSV RNA Qual (PCR) 10/30/20 23:47 MCV MCH MCHC RDW Plt Count MPV Immature Gran % (Auto) Neut % (Auto) Lymph % (Auto) [place] % (Auto) Eos % (Auto) Baso % (Auto) Lymph # (Auto) [place] # (Auto) Eos # (Auto) Baso # (Auto) Abs Immat Gran (auto) Absolute Neuts (auto) Absolute Nucleated RBC Nucleated RBC % (auto) PT INR APTT Anion Gap Estim Creat Clear Calc Estimated GFR Random Glucose Lactic Acid Calcium Magnesium Total Bilirubin Direct Bilirubin AST ALT Alkaline Phosphatase Lactate Dehydrogenase Troponin I High Sens B-Natriuretic Peptide Total Protein Albumin Lipase Carcinoembryonic Ag 6.80 Urine Color Urine Appearance Urine pH Ur Specific [place] Urine Protein Urine Glucose (UA) Urine Ketones Urine Blood Urine Nitrite Ur Leukocyte Esterase Coronavirus (PCR) Influenza Type A (PCR) Influenza Type B (PCR) RSV RNA Qual (PCR) Imaging Radiologist's Impressions: Impressions Chest X-Ray 10/30/20 13:39 IMPRESSION: No acute intrathoracic disease. Abdomen/Pelvis CT 10/30/20 14:55 IMPRESSION: New mass in the head, neck and body the pancreas measuring 4.5 x 6.5 cm worrisome for neoplasm. New bilateral pulmonary nodules. Upper abdominal varices. Large esophageal hernia or intrathoracic stomach. Diverticulosis of the colon. Probable small uterine fibroid. Assessment and Plan (1) Abdominal pain: Qualifiers: Abdominal location: periumbilical Qualified Code(s): R10.33 - Periumbilical pain Status: Acute (2) Mass of pancreas: Status: Acute (3) Hyponatremia: Status: Acute (4) Elevated brain natriuretic peptide (BNP) level: Status: Acute (5) Current use of anticoagulant therapy: Status: Acute (6) Coronary artery disease: Status: Acute (7) CHF (congestive heart failure): Status: Acute This is a 69-year-old female who presents to the hospital with abdominal pain found to have a pancreatic mass concerning for malignancy # pancreatic mass - possibly malignant - new as compared to CT of the abdomen done in 2017, - normal lipase, has mildly elevated ALT of 32, normal AST, normal alk phos, normal LDH, Plan: - will obtain Ca 19-9 antigen, CEA level, - obtain consultation from Hematology-Oncology for further evaluation of the pancreatic mass # abdominal pain - most likely due to the mass found in the pancreas Plan: - supportive measures - pain management # hyponatremia - sodium of 130, asymptomatic - given her CHF with low ejection fraction, will start her on soft normal saline and follow BMP # elevated BNP - patient has no orthopnea, no PND, no lower extremity edema - patient has chronic shortness of breath that has not worsened, no cough Plan: - monitor respiratory status - continue CHF medications # history of CVA - patient reports that she is on Coumadin for her history of CVA, INR therapeutic, will follow PT INR daily # diabetes mellitus - low-dose sliding scale insulin - diabetic diet
[2020-10-31] MEDS: diphenhydrAMINE HCL 50 MG/ML VIAL 25 MG IVPUSH (00:53)
[2020-10-31] MEDS: 0.9 % Sodium Chloride 1,000 ML 50 ML IVCONT (02:25)
[2020-10-31 04:25] LABS: Basophils Percent Auto 0.4 % (0-2); Eosinophils Absolute Auto 0.6 X10*3/uL (0.0-0.4); Eosinophils Percent Auto 13.4 % (0-4); Hematocrit 39.2 % (37-47); Hemoglobin 12.7 g/dl (12.0-16.0); Imm Gran Abs Auto 0.01 X10*3/uL (0.00-0.03); Imm Gran Pct Auto 0.2 % (0.0-0.4); Lymphocytes Percent Auto 21.2 % (20-40); MANUAL DIFF FLAG NO; Mean Corpuscular HGB Conc 32.4 g/dl (31.0-35.0); Mean Corpuscular Hemoglobin 28.9 pg (27.0-33.0); Mean Corpuscular Volume 89.3 fL (80-98); Mean Platelet Volume 10.1 fL (9.4-12.3); Monocytes Absolute Auto 0.4 X10*3/uL (0.1-1.2); Neutrophils Absolute Auto 2.7 X10*3/uL (2.0-8.3); Neutrophils Percent Auto 55.8 % (45-73); Platelet Count 159 X10*3/uL (160-400); Red Blood Count 4.39 X10*6/uL (4.20-5.50); Red Cell Distribution Width 12.9 % (11.0-16.0); White Blood Count 4.8 X10*3/uL (4.8-10.8)
[2020-10-31 04:45] LABS: Anion Gap 16 (12-20); Blood Urea Nitrogen 12 mg/dL (9-16); Calcium 9.2 mg/dL (8.4-10.2); Carbon Dioxide 23 mmol/L (22-29); Chloride 97 mmol/L (96-108); Creatinine Clr Calc Pharmacy 95.4; Estimated Glomerular Filt Rate > 60; Glucose Random 132 mg/dL (60-115); Potassium 4.6 mmol/l (3.3-5.1); Sodium 131 mmol/L (135-145)
[2020-10-31 06:54] LABS: INTERNATIONAL NORM RATIO 1.9 (0.9-1.1)
--- NOTE | 2020-10-31 08:40 | P.CDIC_ITS ---
CDI Concurrent Query Service Date: 11/01/20 Documentation Clarification: Please clarify if you are treating a proba ble/suspected/likely or confirmed: Chronic diastolic and/or systolic Congestive heart failure Acute on chronic diastolic and/or systolic Congestive heart failure Please specify if known Provider Response: CHF PLEASE DO NOT DELETE/MODIFY EXISTING CONTENT Additional information is needed in order to code to the highest accuracy and appropriate Severity of Illness (SOI). Please clarify the information noted below in your progress notes and discharge summary. Risk Factors/Clinical Indicators/Treatments History of CHF BNP 259 H Assessment/plan: CHF given her low ejection fraction follow BMP BNP - chronic shortness of breath continue CHF medication. CDS: Rowan Triplett CCS, CDIS Contact Number: [phone] Please Review the information above and exercise your independent professional judgment in responding to the query. If you concur, pleas document in the PROGRESS NOTES and DISCHARGE SUMMARY. If you do not agree with the query, please document in the query above. THIS QUERY IS PART OF THE PERMANENT MEDICAL RECORD
[2020-10-31] MEDS: Nystatin/Triamcinolone Cream 15 GM TUBE 1 APPL TOPICAL ×2 (10:04→21:06)
[2020-10-31] MEDS: Metoprolol Succinate ER 100 MG TAB.ER.24H 200 MG PO (10:04)
[2020-10-31] MEDS: carBAMazepine 100 MG TAB.CHEW PO ×2 (10:05→21:06)
[2020-10-31] MEDS: Aspirin 81 MG TAB.CHEW PO (10:05)
[2020-10-31] MEDS: carBAMazepine 200 MG TABLET PO (10:05)
[2020-10-31] MEDS: metFORMIN HCl 500 MG TABLET PO (10:05)
[2020-10-31] MEDS: Gabapentin 300 MG CAPSULE PO ×2 (10:05→21:06)
[2020-10-31] MEDS: Losartan Potassium 25 MG TABLET PO (10:05)
[2020-10-31] MEDS: Atorvastatin Calcium 40 MG TABLET PO (10:06)
[2020-10-31] MEDS: Omeprazole 40 MG CAPSULE.DR PO (10:06)
--- NOTE | 2020-10-31 10:13 | MHC.CLN ---
ADMISSION WT 145KG WITH BMI 53 PT REPORTS USUAL BW 145-150# RECOMMEND RE-WEIGHT FOR ADMISSION WT
--- NOTE | 2020-10-31 12:40 | HO.PM.IMPN ---
Subjective Subjective Date of Service: 10/31/20 Interval History: Patient seen in follow-up for abdominal pain and a pancreatic mass, patient complaining of abdominal pain with radiation to back , denies any relationship to meals, associated with nausea and vomiting, patient is tolerating diet, denies significant weight loss. Review of Systems General no headache, no dizziness no fever chills. CVS no chest pain, no palpitation. Respiratory no cough, no shortness of breath Gastrointestinal no nausea, no vomiting, mid abdominal pain Physical Exam Vital Signs: Vital Signs: Last Vital Signs Temp 98.6 F 10/31/20 07:27 Pulse 60 10/31/20 10:05 Resp 20 10/31/20 07:27 BP 133/65 10/31/20 10:05 Pulse Ox 92 10/31/20 07:27 Body Mass Index 24.2 General patient resting comfortably in no acute distress. Eyes no icterus Neck is supple no JVD. CVS regular rate rhythm, Respiratory lungs clear to auscultation, no respiratory distress, no wheeze, no rhonchi. Gastrointestinal abdomen soft, mild mid abdominal discomfort with deep palpation, bowel sounds audible, no guarding , no rigidity. Extremities no clubbing cyanosis or edema. Neuro nonfocal Skin no rash Objective Data Current Medications Generic Name Dose Route Start Last Admin Trade Name Freq PRN Reason Stop Dose Admin Acetaminophen 650 mg 10/30/20 23:04 10/31/20 10:04 Acetaminophen 325 Mg Tablet PO 650 mg Q6H PRN Administration Pain, Mild (Pain Scale 1-3) Albuterol Sulfate 2 puff 10/30/20 23:04 Albuterol Sulfate 90 Mcg 8 Gm Inhaler INHALE QID PRN for wheezing Aspirin 81 mg 10/31/20 09:00 10/31/20 10:05 Aspirin 81 Mg Tab.Chew PO 81 mg DAILY ERWIN Administration Atorvastatin Calcium 40 mg 10/31/20 09:00 10/31/20 10:06 Atorvastatin Calcium 40 Mg Tablet PO 40 mg DAILY ERWIN Administration Carbamazepine 100 mg 10/31/20 09:00 10/31/20 10:05 Carbamazepine 100 Mg Tab.Chew PO 100 mg BID ERWIN Administration Carbamazepine 200 mg 10/31/20 09:00 10/31/20 10:05 Carbamazepine 200 Mg Tablet PO 200 mg DAILY ERWIN Administration Docusate Sodium 100 mg 10/30/20 23:04 Docusate Sodium 100 Mg Capsule PO DAILY PRN Constipation Gabapentin 300 mg 10/31/20 09:00 10/31/20 10:05 Gabapentin 300 Mg Capsule PO 300 mg BID [facility] Administration Sodium Chloride 1,000 mls @ 50 mls/hr 10/31/20 01:45 10/31/20 02:25 Ns IVCONT 50 mls/hr .Q20H ERWIN Administration Losartan Potassium 25 mg 10/31/20 09:00 10/31/20 10:05 Losartan Potassium 25 Mg Tablet PO 25 mg DAILY [facility] Administration Protocol Metformin HCl 500 mg 10/31/20 09:00 10/31/20 10:05 Metformin Hcl 500 Mg Tablet PO 500 mg DAILY [facility] Administration Metoprolol Succinate 200 mg 10/31/20 09:00 10/31/20 10:04 Metoprolol Succinate Er 100 Mg Tab.Er.24h PO 200 mg DAILY [facility] Administration Protocol Nitroglycerin 0.4 mg 10/30/20 23:04 Nitroglycerin 0.4 Mg Tab.Subl SUBLINGUAL Q5M PRN chest pain Non-Formulary Medication 1 inhalation 10/31/20 09:00 Fluticasone Furoate [Arnuity Ellipta] INHALE DAILY [facility] Nystatin/Triamcinolone Acetonide 1 appl 10/31/20 09:00 10/31/20 10:04 Nystatin/Triamcinolone Cream 15 Gm Tube TOPICAL 1 appl BID [facility] Administration Omeprazole 40 mg 10/31/20 09:00 10/31/20 10:06 Omeprazole 40 Mg Capsule.Dr PO 40 mg DAILY [facility] Administration Ondansetron HCl 4 mg 10/30/20 23:04 Ondansetron Hcl 4 Mg/2 Ml Vial IVPUSH Q8H PRN Nausea and Vomiting Pharmacy Consult 1 each 10/30/20 20:14 Consult Rx Perform Med Rec MISCELLANE ONCE PRN Consult order Sodium Chloride 3 ml 10/31/20 00:00 10/31/20 10:06 0.9 % Sodium Chloride Flush 3 Ml Syringe IVFLUSH 3 ml QSHIFT [facility] Administration Tiotropium [place] 1 puff 11/01/20 09:00 Tiotropium [place] 18 Mcg Cap.W.Dev INHALE DAILY [facility] Warfarin Sodium 4 mg 10/31/20 18:00 Warfarin Sodium 4 Mg Tablet PO DAILY@1800 [facility] Labs CBC & Chem 7: 10/31/20 03:58 10/31/20 03:58 Assessment and Plan (1) Elevated brain natriuretic peptide (BNP) level: Status: Acute (2) Hyponatremia: Status: Acute (3) CHF (congestive heart failure): Status: Acute (4) Abdominal pain: Status: Acute (5) Mass of pancreas: Status: Acute (6) Current use of anticoagulant therapy: Status: Acute (7) COPD (chronic obstructive pulmonary disease): Status: Acute (8) Coronary artery disease: Status: Acute (9) Anxiety: Status: Acute (10) Esophageal hernia: Status: Acute (11) Type 2 diabetes mellitus with hyperglycemia: Status: Acute Assessment and Plan: 69-year-old female who presents to the hospital with abdominal pain found to have a pancreatic mass concerning for malignancy # abdominal pain/ pancreatic mass - patient abdominal pain is stable tolerating diet, normal LFTs, normal lipase CA 19-9 is pending will obtain consultation from Hematology-Oncology for further evaluation of the pancreatic mass Will hold Coumadin for possible biopsy. Continue supportive care with pain medication # hyponatremia - sodium of 130 on admission improved to 131, will discontinue IV fluid, stable renal function . # history of chronic congestive heart failure with no acute exacerbation, recent echo not available, last echo from December 19 showed normal systolic function, chronic elevation of BNP - patient has no orthopnea, no PND, no lower extremity edema, no change in chronic shortness of breath, patient not on diuretics at home. # history of coronary artery disease continue beta-blockers /statin and Cozaar follow BP closely and adjust medication. # history of CVA - patient reports that she is on Coumadin for her history of CVA, INR 1.9, will follow PT INR daily, hold Coumadin patient might requires pancreatic mass biopsy. # diabetes mellitus blood sugars stable, discontinue Glucophage since might need further imaging studies continue low-dose sliding scale insulin and diabetic diet # DVT prophylaxis inr 1.[address] on compression boots follow inr at am
--- NOTE | 2020-10-31 16:22 | PM.HEMONCCN ---
Subjective - Subjective Chief complaint: Consult for new pancreatic mass. Consult date: 10/31/20 Requesting Physician: ALYSSA Primary Care Provider: Unknown Physician Medical Summary: DIAGNOSIS: NEW PANCREATIC MASS. NEW PULMONARY NODULES. HPI - Consult Narrative Narrative: Kalani Cardoza is a pleasant 69 year old lady, with past medical history of diabetes, COPD, CVA, hypertension who presents to the hospital with complaints of abdominal pain. She complained of pain all over , on her abdomen, back, chest, legs. She reported that the abdominal pain has been going on for 2 months but worsened over the past 3 days. The pain is generalized abdominal pain, 8/10, intermittent, nonradiating, associated with nausea and vomiting. She also has occasional chills with no fever. She reports the pain to be just generalized discomfort. When asked about weight loss she reports about 1-2 lb of weight loss but not more. She has longstanding shortness of breath, which has been stable. She has no urinary symptoms and no lower extremity edema. Patient is also complaining of bloating, and low appetite. Vital signs: temp of 98.6?, pulse rate of 69, respiratory rate of 19, and oxygen saturation of 95% on room air. Labs are significant for PT of 27.7 INR of 2.3, sodium of 130, BUN of 11 with creatinine of 0.77, troponin 38 trended down to 37, BNP of 259, CT abdomen showed; New mass in the head neck and body of the pancreas measuring 4.5 x 6.5 cm worrisome for neoplasm. New bilateral pulmonary nodules. Upper abdominal varices. Large esophageal hernia. Past medical history: CAD, ischemic cardiomyopathy with an ejection fraction 20-30%, chronic left bundle-branch block, fibromyalgia, chronic pain, acid reflux, hypertension, type 2 diabetes, COPD, asthma, history of TIA Past surgical history: Status post pacemaker AICD placement in 2017, appendectomy, bilateral inguinal hernia repair, partial colectomy, tubal ligation. Family history: Coronary artery disease and asthma Social history: Patient resides alone, walks mostly independent but sometimes uses a walker, denies use of tobacco alcohol or illicit drugs Review of Systems - Constitutional Reports system reviewed and no additional complaints, except as documented, Reports body ache(s), Reports chills, Reports fatigue, Reports fever(s), Reports lack of energy, Reports malaise, Reports weakness, Reports weight loss - Eyes Reports system reviewed and no additional complaints, except as documented, Denies blurry vision - ENT Reports system reviewed and no additional complaints, except as documented - Cardiovascular Reports system reviewed and no additional complaints, except as documented, Denies chest pain at rest - Respiratory Reports no additional respiratory complaints, Denies chest congestion - Gastrointestinal Reports system reviewed and no additional complaints, except as documented, Reports abdominal pain, Reports belching, Reports bloating, Reports change in bowel habits - Genitourinary Reports no additional female genitourinary complaints, Denies abnormal periods - Musculoskeletal Reports system reviewed and no additional complaints, except as documented, Reports back pain, Denies abnormal walking - Integumentary/Breasts Skin/Breast: Reports no additional skin complaints, Denies bleeding lesions - Neurologic Reports system reviewed and no additional complaints, except as documented, Reports abnormal speech, Denies headache(s) - Psychiatric Reports system reviewed and no additional complaints, except as documented - Endocrine Reports no additional endocrine complaints - Hematologic/Lymphatic Reports system reviewed and no additional complaints, except as documented - Allergic/Immunologic Reports system reviewed and no additional complaints, except as documented [facility] Medical History: Medical History (Last Updated 11/05/20 @ 06:35 by CHELO Jerome) Anxiety CHF (congestive heart failure) COPD (chronic obstructive pulmonary disease) Coronary artery disease Current use of anticoagulant therapy Elevated brain natriuretic peptide (BNP) level Esophageal hernia HTN (hypertension) Hyponatremia Pacemaker Type 2 diabetes mellitus with hyperglycemia Functional capacity: independent ambulation Patient : No Family History: Family History (Last Updated 11/05/20 @ 06:36 by CHELO Jerome) Father Medical history unknown Mother Diabetes Hypertension Surgical History: Surgical History (Last Updated 11/05/20 @ 06:35 by CHELO Jerome) History of hemicolectomy History of incisional hernia repair History of pacemaker Smoking status: Never smoker Home Medications and Allergies Current Medications: Current Medications Generic Name Dose Route Start Last Admin Trade Name Freq PRN Reason Stop Dose Admin Acetaminophen 650 mg 10/30/20 23:04 10/31/20 10:04 Acetaminophen 325 Mg Tablet PO 650 mg Q6H PRN Administration Pain, Mild (Pain Scale 1-3) Albuterol Sulfate 2 puff 10/30/20 23:04 Albuterol Sulfate 90 Mcg 8 Gm Inhaler INHALE QID PRN for wheezing Aspirin 81 mg 10/31/20 09:00 10/31/20 10:05 Aspirin 81 Mg Tab.Chew PO 81 mg DAILY ERWIN Administration Atorvastatin Calcium 40 mg 10/31/20 09:00 10/31/20 10:06 Atorvastatin Calcium 40 Mg Tablet PO 40 mg DAILY ERWIN Administration Carbamazepine 100 mg 10/31/20 09:00 10/31/20 10:05 Carbamazepine 100 Mg Tab.Chew PO 100 mg BID ERWIN Administration Carbamazepine 200 mg 10/31/20 09:00 10/31/20 10:05 Carbamazepine 200 Mg Tablet PO 200 mg DAILY ERWIN Administration Docusate Sodium 100 mg 10/30/20 23:04 Docusate Sodium 100 Mg Capsule PO DAILY PRN Constipation Gabapentin 300 mg 10/31/20 09:00 10/31/20 10:05 Gabapentin 300 Mg Capsule PO 300 mg BID [facility] Administration Losartan Potassium 25 mg 10/31/20 09:00 10/31/20 10:05 Losartan Potassium 25 Mg Tablet PO 25 mg DAILY [facility] Administration Protocol Metoprolol Succinate 200 mg 10/31/20 09:00 10/31/20 10:04 Metoprolol Succinate Er 100 Mg Tab.Er.24h PO 200 mg DAILY [facility] Administration Protocol Nitroglycerin 0.4 mg 10/30/20 23:04 Nitroglycerin 0.4 Mg Tab.Subl SUBLINGUAL Q5M PRN chest pain Non-Formulary Medication 1 inhalation 10/31/20 09:00 Fluticasone Furoate [Arnuity Ellipta] INHALE DAILY [facility] Nystatin/Triamcinolone Acetonide 1 appl 10/31/20 09:00 10/31/20 10:04 Nystatin/Triamcinolone Cream 15 Gm Tube TOPICAL 1 appl BID [facility] Administration Omeprazole 40 mg 10/31/20 09:00 10/31/20 10:06 Omeprazole 40 Mg Capsule.Dr PO 40 mg DAILY [facility] Administration Ondansetron HCl 4 mg 10/30/20 23:04 Ondansetron Hcl 4 Mg/2 Ml Vial IVPUSH Q8H PRN Nausea and Vomiting Pharmacy Consult 1 each 10/30/20 20:14 Consult Rx Perform Med Rec MISCELLANE ONCE PRN Consult order Sodium Chloride 3 ml 10/31/20 00:00 10/31/20 16:16 0.9 % Sodium Chloride Flush 3 Ml Syringe IVFLUSH 3 ml QSHIFT [facility] Administration Tiotropium [place] 1 puff 11/01/20 09:00 Tiotropium [place] 18 Mcg Cap.W.Dev INHALE DAILY [facility] Warfarin Sodium 4 mg 10/31/20 18:00 Warfarin Sodium 4 Mg Tablet PO DAILY@1800 [facility] Home Medications Medication Instructions Recorded Confirmed Type Spiriva with HandiHaler 1 cap INHALATION DAILY 10/30/20 10/30/20 History aspirin 81 mg PO DAILY 10/30/20 10/30/20 History calcium carbonate-vitamin D3 1 tab PO BID 10/30/20 10/30/20 History carbamazepine 100 mg PO BID 10/30/20 10/30/20 History carbamazepine 200 mg PO DAILY 10/30/20 10/30/20 History ferrous gluconate 324 mg PO DAILY 10/30/20 10/30/20 History gabapentin 300 mg PO BID 10/30/20 10/30/20 History metformin 500 mg PO DAILY 10/30/20 10/30/20 History metoprolol succinate 200 mg PO DAILY 10/30/20 10/30/20 History omeprazole 40 mg PO DAILY 10/30/20 10/30/20 History Allergies Allergy/AdvReac Type Severity Reaction Status Date / Time No Known Allergies Allergy Verified 11/05/20 06:34 Physical Exam Vital signs: Vital Signs Temp 98.6 F 10/31/20 07:27 Pulse 60 10/31/20 10:05 Resp 20 10/31/20 07:27 BP 133/65 10/31/20 10:05 Pulse Ox 92 10/31/20 07:27 Intake & Output 10/30/20 10/31/20 10/31/20 18:59 06:59 18:59 Intake Total 964.167 / 964.167 Output Total 200 / 200 Balance - / -1 764.167 / 764.167 Urine Output (Average ml/kg/hr) 0.00 0.25 Intake: Intake, Oral Amount 300 / 300 Intake, IV Amount 664.167 / 664.167 0.9 % Sodium Chloride 1,000 ml 664.167 / 664.167 @ 50 mls/hr IVCONT .Q20H [facility] Rx #:[id number] Output: Output, Urine Amount 200 / 200 Other: Breakfast % Eaten 25% Urine Bathroom Weight 145 kg 66 kg Weight 66 kg - Constitutional Present: moderate distress - Routine HEENT Exam Head: Present: normal inspection ENT: Present: mucous membranes moist - Routine Neck Exam Present: supple - Routine Respiratory Exam Present: CTAB - Routine Cardiovascular Exam Cardiovascular: Present: RRR, S1, S2 - Routine Abdominal Exam Present: firm, tenderness - Routine Rectal Exam Patient deferred: digital exam - Routine Skin Exam Present: intact - Routine Neurological Exam Present: alert, oriented X3 - Detailed Neurological Exam: Coma Scale Eye Opening: Spontaneous (4) Verbal Response: Oriented (5) - Routine Psychiatric Exam Present: normal affect Hem/Onc Consult Result - Labs CBC & Chem 7: 10/31/20 03:58 11/01/20 06:11 Labs: Short CBC 10/31/20 Range/Units 03:58 WBC 4.8 (4.8-10.8) X10*3/uL Hgb 12.7 (12.0-16.0) g/dl Hct 39.2 (37-47) % Plt Count 159 L (160-400) X10*3/uL BMP 10/31/20 03:58 Sodium 131 L Potassium 4.6 Chloride 97 Carbon Dioxide 23 BUN 12 Creatinine 0.81 Calcium 9.2 Assessment and Plan (1) Mass of pancreas Status: Acute This is a pleasant 69-year-old lady who presents with a couple of months history of abdominal pain that recently worsened. CT scan of the abdomen revealed: New mass in the head, neck and body the pancreas measuring 4.5 x 6.5 cm worrisome for neoplasm. New bilateral pulmonary nodules. Upper abdominal varices. Large esophageal hernia or intrathoracic stomach. Diverticulosis of the colon. Probable small uterine fibroid. Concern is for pancreatic cancer. PLAN: I have placed a call in to Dr. Lauren Boone to see if there is anything that can be biopsied, i.e. even of the lung nodules. She felt that the Pancreatic Mass can be biopsied. She likely has metastatic disease, so would be Okay to biopsy. Procedure was scheduled for 11/05 however did not have prior Auth so had to be canceled. ReceiveD the prior Auth today. Will now be scheduled. I will see her back in a week's time, once pathology is available. If not will arrange for endoscopic ultrasound-guided biopsy at [facility] under the care of Dr. Salcedo. Tumor marker Ca 19/9 is :[id number].. Thank you for the consult, I will follow along with you, CC: Dr. Lancaster. SSS.
[2020-10-31] MEDS: Warfarin Sodium 4 MG TABLET PO (18:43)
[2020-10-31] MEDS: Albuterol Sulfate 90 MCG 8 GM INHALER 2 PUFF INHALE (21:15)
[2020-10-31] MEDS: ALPRAZolam 0.5 MG TABLET PO (23:27)
[2020-10-31] MEDS: Albuterol/Iprat 2.5/0.5MG 3 ML AMPUL.NEB INHALE (23:51)
[2020-11-01 04:00] VITALS: BP 120/60; PULSE 61; RESP 16; TEMP 36.3; O2SAT 95
[2020-11-01 06:39] LABS: INTERNATIONAL NORM RATIO 1.6 (0.9-1.1); Prothrombin Time 19.1 SEC (10.8-13.0)
[2020-11-01 07:02] LABS: Anion Gap 12 (12-20); Blood Urea Nitrogen 16 mg/dL (9-16); Calcium 8.7 mg/dL (8.4-10.2); Carbon Dioxide 27 mmol/L (22-29); Chloride 95 mmol/L (96-108); Creatinine Clr Calc Pharmacy 57.5; Estimated Glomerular Filt Rate > 60; Glucose Random 131 mg/dL (60-115); Potassium 4.2 mmol/l (3.3-5.1); Sodium 130 mmol/L (135-145)
[2020-11-01 07:27] VITALS: BP 116/66; PULSE 66; RESP 15; TEMP 36.4; O2SAT 96
[2020-11-01 09:13] VITALS: BP 138/65; PULSE 70
[2020-11-01] MEDS: Gabapentin 300 MG CAPSULE PO (09:13)
[2020-11-01] MEDS: carBAMazepine 200 MG TABLET PO (09:13)
[2020-11-01] MEDS: 0.9 % Sodium Chloride Flush 3 ML SYRINGE IVFLUSH (09:13)
[2020-11-01] MEDS: Metoprolol Succinate ER 100 MG TAB.ER.24H 200 MG PO (09:13)
[2020-11-01] MEDS: Atorvastatin Calcium 40 MG TABLET PO (09:17)
[2020-11-01 09:18] VITALS: BP 138/65; PULSE 70
[2020-11-01] MEDS: Losartan Potassium 25 MG TABLET PO (09:18)
[2020-11-01] MEDS: carBAMazepine 100 MG TAB.CHEW PO (09:18)
[2020-11-01] MEDS: Omeprazole 40 MG CAPSULE.DR PO (09:18)
[2020-11-01] MEDS: Aspirin 81 MG TAB.CHEW PO (09:19)
--- NOTE | 2020-11-01 09:57 | MHC.HEMONC ---
[facility] GI CONSULT - Pt. is here in house. Per Dr. Cifuentes I called [facility] GI at [phone] and spoke placido Quijano at GI front desk auxiliary, she is putting in referral request to nurses as high alert- Requested consult for pt. Kalani Cardoza: Dx - NEW PANCREATIC MASS w NEW PULMONARY NODULES concerning for neoplasm. Supporting documents at this time: CT Scan abd/pelvis shows new mass in head, neck, and body of the pancreas measuring 4.5 x 6.5. Macie tells me someone will call us back today.
[2020-11-01 10:52] VITALS: PULSE 64; O2SAT 97
[2020-11-01 11:04] VITALS: BP 111/66; PULSE 101; RESP 16; TEMP 36.3; O2SAT 96
--- NOTE | 2020-11-01 13:27 | MHC.CM.PN ---
CM met with pt with the assistance of a staff interpreter. Pt reports she has a [employer]MICAL PLANT TECHNICAL DIRECTOR that comes in daily to assist with personal and home care. pt reports she has a walker that she was using [employer]. Pt reports she does not want to do a HCP today but plans to talk to her children about it. Pt current DC plan is home with resumption of care family will transport
--- NOTE | 2020-11-01 13:29 | P.DS_ITS ---
DS: Providers Provider Date of admission: 10/30/20 22:23 Primary care physician: Unknown Physician Consults: 10/31/20 12:30 Consult to Hematology / Oncology Routine Consulting Provider: Bettina Clark Reason for consultation: thrombocytopenia DS: Diagnosis Discharge Diagnosis (1) Hyponatremia: Status: Acute (2) CHF (congestive heart failure): Status: Acute (3) Abdominal pain: Status: Acute (4) Mass of pancreas: Status: Acute (5) Current use of anticoagulant therapy: Status: Acute (6) COPD (chronic obstructive pulmonary disease): Status: Acute (7) Coronary artery disease: Status: Acute (8) Anxiety: Status: Acute (9) Esophageal hernia: Status: Acute (10) Type 2 diabetes mellitus with hyperglycemia: Status: Acute DS: Medications Discharge Medications Home Medications: Home Medications Medication Instructions Recorded Confirmed Spiriva with HandiHaler 1 cap INHALATION DAILY 10/30/20 10/30/20 aspirin 81 mg PO DAILY 10/30/20 10/30/20 calcium carbonate-vitamin D3 1 tab PO BID 10/30/20 10/30/20 carbamazepine 100 mg PO BID 10/30/20 10/30/20 carbamazepine 200 mg PO DAILY 10/30/20 10/30/20 ferrous gluconate 324 mg PO DAILY 10/30/20 10/30/20 gabapentin 300 mg PO BID 10/30/20 10/30/20 metformin 500 mg PO DAILY 10/30/20 10/30/20 metoprolol succinate 200 mg PO DAILY 10/30/20 10/30/20 omeprazole 40 mg PO DAILY 10/30/20 10/30/20 Previous Rx's Medication Instructions Recorded nitroglycerin 0.4 mg sublingual 0.4 mg SUBLINGUAL Q5M PRN 90 Days 08/27/20 tablet #20 tab warfarin 4 mg tablet See Rx Instructions PO DAILY 30 08/29/20 Days #60 tab losartan 25 mg tablet 25 mg PO DAILY #30 tab 09/05/20 fluticasone furoate 200 1 inh INHALATION DAILY #30 cap 09/09/20 mcg/actuation blister powder for inhalation atorvastatin 40 mg tablet 40 mg PO DAILY #90 tab 10/21/20 albuterol sulfate 90 mcg/actuation 2 puff INHALATION QID PRN #8.5 g 10/25/20 aerosol inhaler clotrimazole-betamethasone 1 1 appl TOPICAL BID 14 Days #30 g 10/25/20 %-0.05 % topical cream DS: Summary Hospital Course Hospital Course: Admission note HPI this is a 69-year-old female with past medical history of diabetes, COPD, CVA, hypertension who presents to the hospital with complaints of abdominal pain. Patient is Faroese-speaking and history is obtained with the help of eyeglass assembler. Patient is complaining of pain all over , on her abdomen, back, chest, legs. Patient reports that the abdominal pain has been going on for 2 months but worsened over the past 3 days. The pain is generalized abdominal pain, 8/10, intermittent, nonradiating, associated with nausea and vomiting, she also has occasional chills with no fever. She reports the pain to be just generalized discomfort. When asked about weight loss she reports about 1-2 lb of weight loss but not more. She is also complaining of years of shortness of breath with no change. She has no urinary symptoms and no lower extremity edema. Patient is also complaining of bloating, and low appetite. A temp of 98.6?, pulse rate of 69, respiratory rate of 19, and oxygen saturation of 95% on room air. Labs are significant for PT of 27.7 INR of 2.3, sodium of 130, BUN of 11 with creatinine of 0.77, troponin 38 trended down to 37, BNP of 259, CT abdomen showed new mass in the head neck and body of the pancreas measuring 4.5 x 6.5 cm worrisome for neoplasm. New bilateral pulmonary nodules. Upper abdominal varices. Large esophageal hernia. Hospital course The patient was evaluated for abdominal pain. CT scan was concerning for pancreatic head mass. The patient was evaluated by Dr. Cifuentes from Oncology who recommended biopsy of the pancreas. Discussed with IR who recommended holding both aspirin and warfarin for 3 days prior to procedure which be scheduled for next Wednesday. After discussing with the patient she would prefer to go back home and come at the time of the biopsy. Discussed with Dr. Cifuentes or recommended holding both of the medication for 3 days prior to the procedure. INR of 1.6 at the day of discharge. She was noted to have hyponatremia which seems to be chronic around 130-131. Will repeat blood chemistry next week. BNP was noted to be mildly elevated around 200 which is the baseline for her looking back at her previous readings. Not in acute CHF exacerbation. To continue his current medications at home except for the aspirin and warfarin. The patient speaks Faroese only. She asked me to call her daughter in law Nevin which I did and explained to her the findings and the plan from now on. Time Spent with Patient Time attestation: Total time spent providing and/or coordinating discharge services: Physical Exam Vital Signs: Vital Signs: Last Vital Signs Temp 97.3 F 11/01/20 11:04 Pulse 101 H 11/01/20 11:04 Resp 16 11/01/20 11:04 BP 111/66 11/01/20 11:04 Pulse Ox 96 11/01/20 11:04 Body Mass Index 24.2 Constitutional : Alert, oriented, not in distress Neck : Normal inspection, Supple Cardiovascular : RRR, S1 S2, no lower extremity edema Respiratory : Good bilateral air entry, no crackles, wheezes or rhonchi Gastrointestinal: soft, lax, Normal bowel sounds, Non tender Skin : Warm/Dry, No rash Neurological : Alert & oriented x3, No focal deficit DS: Data Data Completed and Pending Labs on day of discharge: 10/30/20 Breakfast Diabetic Diet 10/30/20 13:38 ECG 12 lead EKG Stat EKG Documentation DIRECTED Albuterol Sulfate (0.083%) [Ventolin (0.083%)] 2.5 mg INHALE ONCE ONE HYDROcodone/Homat 5/1.5/5 ML [Hydromet 5/1.5/5 ML] 5 ml PO ONCE ONE ondansetron HCL [Zofran] 4 mg IVPUSH ONCE ONE 10/30/20 13:39 XR chest 1V Stat 10/30/20 13:54 B Type Natriuretic Peptide Stat Basic Metabolic Panel Stat Complete Blood Count Auto Diff Stat Lactate Dehydrogenase Stat Lactic Acid Stat Lipase Stat Liver Panel Stat Magnesium Stat Partial Thromboplastin Time Stat Prothrombin Time INR Stat SARS-CoV2/FLU/RSV Stat Troponin-I High Sensitivity Stat 10/30/20 14:55 CT abdomen pelvis wo con Stat 10/30/20 15:58 UA CC w/rflx Micro + Cult Stat 10/30/20 17:14 Troponin-I High Sensitivity Stat 10/30/20 20:32 Morphine Sulfate 4 mg IVPUSH ONCE ONE ondansetron HCL [Zofran] 4 mg IVPUSH ONCE ONE 10/30/20 21:19 Transfer Order Routine 10/30/20 23:47 Carcinoembryonic Antigen Routine 10/31/20 00:38 diphenhydrAMINE HCL [Benadryl] 25 mg IVPUSH ONCE ONE 10/31/20 01:45 0.9 % Sodium Chloride [Ns] 1,000 ml IVCONT 50 mls/hr 10/31/20 03:58 Basic Metabolic Panel Routine Complete Blood Count Auto Diff Routine 10/31/20 05:42 Prothrombin Time INR DAILY 10/31/20 09:00 Tiotropium [place] [Spiriva] 1 puff INHALE DAILY metFORMIN HCl [Glucophage] 500 mg PO DAILY 10/31/20 18:00 Warfarin Sodium [Coumadin] 4 mg PO DAILY@1800 11/01/20 06:11 Basic Metabolic Panel Routine Prothrombin Time INR Routine Laboratory Last Values WBC 4.8 X10*3/uL (4.8-10.8) 10/31/20 03:58 RBC 4.39 X10*6/uL (4.20-5.50) 10/31/20 03:58 Hgb 12.7 g/dl (12.0-16.0) 10/31/20 03:58 Hct 39.2 % (37-47) 10/31/20 03:58 MCV 89.3 fL (80-98) 10/31/20 03:58 MCH 28.9 pg (27.0-33.0) 10/31/20 03:58 MCHC 32.4 g/dl (31.0-35.0) 10/31/20 03:58 RDW 12.9 % (11.0-16.0) 10/31/20 03:58 Plt Count 159 X10*3/uL (160-400) L 10/31/20 03:58 MPV 10.1 fL (9.4-12.3) 10/31/20 03:58 Immature Gran % (Auto) 0.2 % (0.0-0.4) 10/31/20 03:58 Neut % (Auto) 55.8 % (45-73) 10/31/20 03:58 Lymph % (Auto) 21.2 % (20-40) 10/31/20 03:58 [place] % (Auto) 9.0 % (2-11) 10/31/20 03:58 Eos % (Auto) 13.4 % (0-4) H 10/31/20 03:58 Baso % (Auto) 0.4 % (0-2) 10/31/20 03:58 Lymph # (Auto) 1.0 X10*3/uL (1.2-4.9) L 10/31/20 03:58 [place] # (Auto) 0.4 X10*3/uL (0.1-1.2) 10/31/20 03:58 Eos # (Auto) 0.6 X10*3/uL (0.0-0.4) H 10/31/20 03:58 Baso # (Auto) 0.0 X10*3/uL (0.0-0.2) 10/31/20 03:58 Abs Immat Gran (auto) 0.01 X10*3/uL (0.00-0.03) 10/31/20 03:58 Absolute Neuts (auto) 2.7 X10*3/uL (2.0-8.3) 10/31/20 03:58 Absolute Nucleated RBC 0.000 X10*3/uL (0.0-0.012) 10/31/20 03:58 Nucleated RBC % (auto) 0.0 /100WBC (0.0-0.2) 10/31/20 03:58 PT 19.1 SEC (10.8-13.0) H 11/01/20 06:11 INR 1.6 (0.9-1.1) H 11/01/20 06:11 APTT 35.2 SEC (24.1-38.0) 10/30/20 13:54 Sodium 130 mmol/L (135-145) L 11/01/20 06:11 Potassium 4.2 mmol/l (3.3-5.1) 11/01/20 06:11 Chloride 95 mmol/L (96-108) L 11/01/20 06:11 Carbon Dioxide 27 mmol/L (22-29) 11/01/20 06:11 Anion Gap 12 (-20) 11/01/20 06:11 BUN 16 mg/dL (9-16) 11/01/20 06:11 Creatinine 0.83 mg/dL (0.5-1.4) 11/01/20 06:11 Estim Creat Clear Calc 57.5 11/01/20 06:11 Estimated GFR > 60 11/01/20 06:11 Random Glucose 131 mg/dL (60-115) H 11/01/20 06:11 Lactic Acid 1.0 mmol/L (0.5-2.0) 10/30/20 13:54 Calcium 8.7 mg/dL (8.4-10.2) 11/01/20 06:11 Magnesium 1.6 mg/dL (1.6-2.6) 10/30/20 13:54 Total Bilirubin 0.3 mg/dL (0.0-1.0) 10/30/20 13:54 Direct Bilirubin 0.2 mg/dL (0.0-0.5) 10/30/20 13:54 AST 30 U/L (5-31) 10/30/20 13:54 ALT 32 U/L (0-31) H 10/30/20 13:54 Alkaline Phosphatase 60 U/L (39-117) 10/30/20 13:54 Lactate Dehydrogenase 190 U/L (122-220) 10/30/20 13:54 Troponin I High Sens 37.1 ng/L (<3.5-17.0) H 10/30/20 17:14 B-Natriuretic Peptide 259 pg/mL (<100) H 10/30/20 13:54 Total Protein 7.5 g/dL (6.5-8.0) 10/30/20 13:54 Albumin 4.4 g/dL (3.5-5.0) 10/30/20 13:54 Lipase 48 U/L (8-78) 10/30/20 13:54 Carcinoembryonic Ag 6.80 mg/mL 10/30/20 23:47 Urine Color YELLOW 10/30/20 15:58 Urine Appearance CLEAR 10/30/20 15:58 Urine pH 7.5 (5.0-8.0) 10/30/20 15:58 Ur Specific Brewer 1.015 (1.005-1.025) 10/30/20 15:58 Urine Protein TRACE MG/DL (NEG-TRACE) 10/30/20 15:58 Urine Glucose (UA) NEG MG/DL (NEG) 10/30/20 15:58 Urine Ketones NEG MG/DL (NEG) 10/30/20 15:58 Urine Blood NEG (NEG) 10/30/20 15:58 Urine Nitrite NEG (NEG) 10/30/20 15:58 Ur Leukocyte Esterase NEG (NEG) 10/30/20 15:58 Coronavirus (PCR) NEGATIVE (Negative) 10/30/20 13:54 Influenza Type A (PCR) NEGATIVE (Negative) 10/30/20 13:54 Influenza Type B (PCR) NEGATIVE (Negative) 10/30/20 13:54 RSV RNA Qual (PCR) NEGATIVE (Negative) 10/30/20 13:54 Preliminary micro results at discharge 10/30/20 13:54 Blood Culture - Preliminary Blood - Venous No growth after 24 hours. 10/30/20 13:54 Blood Culture - Preliminary Blood - Venous No growth after 24 hours. Discharge Plan Discharge Patient Disposition: Home, Self-Care Referrals: Mervin Cifuentes MD [Physician] - 2 days (call for soon appointment) Yessica Whitfield NP [Nurse Practitioner] - 1 Week (11/08/2020 11:30- Hospital Discharge follow up 11/12/2020 11:[address] Mayer) Discharge Medications: Continued nitroglycerin 0.4 mg tablet, sublingual 0.4 mg sublingual Q5M PRN (Reason: chest pain) 90 Days Qty: 20 RF: 0 losartan 25 mg tablet 25 mg PO DAILY Qty: 30 RF: 5 fluticasone furoate [Arnuity Ellipta] 200 mcg/actuation blister with device 1 inh inhalation DAILY Qty: 30 RF: 5 atorvastatin 40 mg tablet 40 mg PO DAILY Qty: 90 RF: 1 clotrimazole-betamethasone 1-0.05 % cream 1 appl topical BID 14 Days Qty: 30 RF: 0 albuterol sulfate 90 mcg/actuation HFA aerosol inhaler 2 puff inhalation QID PRN (Reason: for wheezing) Qty: 8.5 RF: 0 metformin 500 mg tablet 500 mg PO DAILY RF: 0 metoprolol succinate 200 mg tablet extended release 24 hr 200 mg PO DAILY RF: 0 carbamazepine 200 mg tablet 200 mg PO DAILY RF: 0 gabapentin 100 mg capsule 300 mg PO BID RF: 0 Spiriva with HandiHaler 18 mcg capsule, w/inhalation device 1 cap inhalation DAILY RF: 0 calcium carbonate-vitamin D3 600 mg(1,500mg) -400 unit tablet 1 tab PO BID RF: 0 ferrous gluconate 324 mg (37.5 mg iron) tablet 324 mg PO DAILY RF: 0 carbamazepine 200 mg 100 mg PO BID RF: 0 omeprazole 40 mg capsule,delayed release(DR/EC) 40 mg PO DAILY RF: 0 Held warfarin 4 mg tablet See Rx Instructions mg PO DAILY 30 Days Qty: 60 RF: 3 Hold Instructions: Resume on 11/05/20. aspirin 81 mg tablet,chewable 81 mg PO DAILY RF: 0 Hold Instructions: Resume on 11/06/20. Discharge Orders: Discharge Order (Routine); Ordered 11/01/20 Ordered By: Teresa Garcia Diet: advance to usual diet and diabetic diet Activity on Discharge: As tolerated Patient Instructions: Acute Nausea and Vomiting (ED), Abdominal Pain (ED) Print Language: Faroese Visit Report Forms: Patient Portal Discharge page Care Plan Goals: Read below Health Concerns: Read below Plan of Treatment: You have presented to the hospital for evaluation of abdominal pain. CT Images of your abdomen were concerning for pancreatic mass. You were evaluated by Dr. Cifuentes from Oncology who recommended a biopsy for the mass. Giving the fact that you use aspirin and warfarin we need to hold these medications for 3 days prior to biopsy to decrease the risk of bleeding. Biopsies scheduled at [facility] Radiology Department on Wednesday11/05/2020. Your sodium level was noticed to be mildly decreased. To repeat blood test next week. To hold both aspirin and warfarin starting today To follow-up with Dr. Cifuentes for the biopsy results.
--- NOTE | 2020-11-01 13:53 | MHC.CM.PN ---
DISCHARGE: PT DISCHARGING HOME/SELF-CARE, SON TO TRANSPORT PT HOME, SPOKE W/PT VIA [employer] AND SHE WILL CALL SON FOR RIDE AFTER SHE EATS, RN REVIEWING DISCHARGE PLAN AND DIRECTIONS TO HOLD ASA AND COUMADIN UNITL BIOPSY, PT TO CALL DR. CLAUDE DAI FOR BIOPSY APT, FOLLOW-UP W/PCP ON 11/08 AT 11:30AM WITH VIKTOR WILLIS NP AND ON 11/12 AT 11:[address] MEDRANO
[2020-11-02 14:22] LABS: Carbohydrate Antigen 19-9 4524 U/mL (<34)
--- NOTE | 2020-11-04 14:52 | MHC.HEMONCSW ---
CT GUIDED ABDOMINAL BX WENT TO [facility] CLINICAL REVIEW. CASE# [id number] WAIT DECISION.
--- NOTE | 2020-11-07 10:23 | MHC.HEMONCSW ---
CT GUIDED BX PANCREATIC MASS IS FAXED TO [facility] IN XRAY AND PLACED IN O.F. REQUESTING IT BE DONE ALTAF.
--- NOTE | 2020-11-07 10:30 | MHC.HEMONCSW ---
phoned, informed son alicia of approval for bx and l/m for his nasreen at [phone]. told them i requested expedited bx.
--- NOTE | 2020-11-08 11:45 | MHC.HEMONC ---
CT GUIDED BX - Rajani called re: CT auth. I told her that we have a note here in EMR stating the auth was faxed to [facility] in their dept. Rajani will schedule pt. as appropriate for their schedule.
--- NOTE | 2020-11-11 19:02 | MHC.HEMONC ---
CT Guided BX - T/C to pt's daughter in law, Nevin - [phone] to remind of appt tomorrow for bx. Nevin states she is bringing her in tomorrow morning as directed by IR dept. She states pt. will follow NPO orders and is not on any blood thinners.
--- NOTE | 2020-11-20 10:29 | MHC.HEMONC ---
[facility] GI - received t/c from [facility] GI dept. on 11/13/20 requesting additional documents. I spoke placido Vazquez, RN today and told her we had to go ahead and get the pancreas bx here at [facility] [place] [place] b/c we didn't hear from their office since 11/01. She tells me she spoke w someone here soon after the at the [phone] ext and asked for additional documents, ie note, and any labs but never received anything. She explained that in the future we can call their number, the call center will put in the note to the nurses there and then we should send supporting documents to Attn: GI NURSES. They will then reach out to the pt. w an appt. usually w/in 48 hours, and if they can not reach the pt. they will call us to inform. Of note - pt has had her bx in a timely fashion here at [facility] [place] [place] by Dr. Boone, she is being scheduled for a PET scan and a follow up will be made for Dr. Cifuentes after PET.
== END 2020-11-01 15:00 | disposition home or self-care (01) | DRG 440 ==
LOC: HO.ED 20:09 → HO.IMC 22:24 → HO.S3 10-31 21:24
PROVIDERS: Emergency Medicine; Hospitalist; Admitting Provider Internal Medicine; Emergency Provider Emergency Medicine Emergency Medical Services; Visit Provider Student in an Organized Health Care Education/Training Program
DX: K86.9 Disease of pancreas, unspecified (principal); I25.10 Atherosclerotic heart disease of native coronary artery without angina pectoris; E11.9 Type 2 diabetes mellitus without complications; I50.9 Heart failure, unspecified; Z20.828 Contact with and (suspected) exposure to other viral communicable diseases; Z95.0 Presence of cardiac pacemaker; Z86.73 Personal history of transient ischemic attack (TIA), and cerebral infarction without residual deficits; F41.9 Anxiety disorder, unspecified; R91.8 Other nonspecific abnormal finding of lung field; K44.9 Diaphragmatic hernia without obstruction or gangrene; Z79.01 Long term (current) use of anticoagulants; Z79.51 Long term (current) use of inhaled steroids; Z79.84 Long term (current) use of oral hypoglycemic drugs; Z79.891 Long term (current) use of opiate analgesic; Z79.899 Other long term (current) drug therapy
CPT/HCPCS: 0241U; 36415; 71045; 74176; 80048; 80076; 81003; 82378; 83605; 83615; 83690; 83735; 83880; 84484; 85025; 85610; 85730; 86301; 87040; 93005; 94640; 96374; 96375; 96376; 99218; 99285; J1200; J2270; J2405

== ENCOUNTER 2020-11-07 15:09 | Emergency (ER) | payer OTHER, SELFPAY ==
[2020-11-07 15:49] VITALS: BP 141/72; PULSE 66; RESP 16; TEMP 36.7; O2SAT 98
--- NOTE | 2020-11-07 16:20 | ED.ABDPAIN ---
HPI - Abdominal Pain General Chief Complaint: Abdominal Pain Stated Complaint: Abdominal Pain Time Seen by Provider: 11/07/20 16:20 Source: patient, old records reviewed and aerial photograph interpreter Mode of arrival: ambulatory Limitations: no limitations History of Present Illness MD elicited complaint: abdominal pain Pertinent past history: other (dx with pancreatic mass on 10/30/20 was due for biopsy but canceled due to insurance on Wednesday) Onset (ago): month(s) (3) Pain Consistency: constant Location: epigastric and periumbilical Severity: similar to previous episodes Quality: aching Radiation: none Migration to: no migration Exacerbating factors: nothing Relieving factors: nothing Context: history of similar episodes Associated symptoms: nausea and other (weakness) Related Data Home Medications Medication Instructions Recorded Confirmed Spiriva with HandiHaler 1 cap INHALATION DAILY 10/30/20 10/30/20 aspirin 81 mg PO DAILY 10/30/20 10/30/20 calcium carbonate-vitamin D3 1 tab PO BID 10/30/20 10/30/20 carbamazepine 100 mg PO BID 10/30/20 10/30/20 carbamazepine 200 mg PO DAILY 10/30/20 10/30/20 ferrous gluconate 324 mg PO DAILY 10/30/20 10/30/20 gabapentin 300 mg PO BID 10/30/20 10/30/20 metformin 500 mg PO DAILY 10/30/20 10/30/20 metoprolol succinate 200 mg PO DAILY 10/30/20 10/30/20 omeprazole 40 mg PO DAILY 10/30/20 10/30/20 Previous Rx's Medication Instructions Recorded nitroglycerin 0.4 mg sublingual 0.4 mg SUBLINGUAL Q5M PRN 90 Days 08/27/20 tablet #20 tab warfarin 4 mg tablet See Rx Instructions PO DAILY 30 08/29/20 Days #60 tab losartan 25 mg tablet 25 mg PO DAILY #30 tab 09/05/20 fluticasone furoate 200 1 inh INHALATION DAILY #30 cap 09/09/20 mcg/actuation blister powder for inhalation atorvastatin 40 mg tablet 40 mg PO DAILY #90 tab 10/21/20 albuterol sulfate 90 mcg/actuation 2 puff INHALATION QID PRN #8.5 g 10/25/20 aerosol inhaler clotrimazole-betamethasone 1 1 appl TOPICAL BID 14 Days #30 g 12/04/20 %-0.05 % topical cream montelukast 10 mg tablet 10 mg PO BEDTIME #90 tab 11/07/20 oxycodone 5 mg PO TID PRN #20 cap 11/07/20 tramadol 50 mg tablet 50 mg PO BID PRN 30 Days #60 tab 11/07/20 Allergies Allergy/AdvReac Type Severity Reaction Status Date / Time No Known Allergies Allergy Verified 11/05/20 06:34 Review of Systems Review of Systems Constitutional : No Weight loss, No Fever, No Chills ENT/Mouth : No sore throat, No Rhinorrhea Eyes: No Swelling, No Redness Cardiovascular : No Chest Pain, No SOB, NoEdema Respiratory : No Cough, No Sputum, No Wheezing Gastrointestinal : Positive Nausea, no Vomiting, no Diarrhea, positive abdominal Pain, No Hematochezia, No Melena Genitourinary : No Dysuria, No Urinary Frequency, No Hematuria, No Urgency Musculoskeletal : No joint pain, No Myalgias, No Joint Swelling Skin : No Skin Lesions, No rash Neuro : pos Weakness, No Numbness, No Dizziness, No Headache Psych : No Anxiety/Panic, No Depression Heme/Lymph: No Bruising, No Lymphadenopathy Endocrine : No Polyuria, No Polydipsia All other systems reviewed and are negative. Physical Exam Vital Signs: Vital Signs: Last Vital Signs Temp 98.0 F 11/07/20 15:49 Pulse 60 11/07/20 17:34 Resp 16 11/07/20 17:34 BP 143/60 H 11/07/20 17:34 Pulse Ox 96 11/07/20 17:34 Body Mass Index 2.8 Appearance: Alert. Oriented X3. No acute distress. Eyes: Pupils equal, round and reactive to light. ENT: Pharynx normal. Neck: Normal inspection. Neck supple. CVS: Normal heart rate and rhythm. Pulses normal. Respiratory: No respiratory distress. Breath sounds normal. Abdomen: Soft and mild epigastric tenderness no rebound or guarding. Skin: Skin warm and dry. Normal skin color. Normal skin turgor. Extremities: No lower extremity edema. No calf ttp Neuro: Oriented X 3. No motor deficit. No sensory deficit. Course Course Course Narrative: discussed with case management, IR is trying to schedule her they are aware and her oncologist will give her an update regarding timing of procedure. patient states she is feeling better, I used an aerial photograph interpreter to let her know that she is not having her procedure today - she is aware that her Oncologist will follow up and schedule her for the biopsy, she is to remain off the coumadin and aspirin until then MDM - Abdominal Pain MDM Narrative Medical decision making narrative: 69 yo female with hx of anxiety, COPD, HTN, PPM, HTN dx with recent pancreatic mass comes in today with weakness anorexia and abdominal pain not responding to her home percocet - will obtain labs, treat with IVF and IV morphine for pain , no vomiting, she is able to have BM doubt obstruction at this time, likely pain she has been experiencing from her mass over the past few months Lab Data Result diagrams: 11/07/20 16:46 11/07/20 16:46 Labs: Lab Results 11/07/20 11/07/20 11/07/20 Range/Units 16:46 16:46 16:46 WBC 4.9 (4.8-10.8) X10*3/uL RBC 4.16 L (4.20-5.50) X10*6/uL Hgb 12.3 (12.0-16.0) g/dl Hct 37.5 (37-47) % MCV 90.1 (80-98) fL MCH 29.6 (27.0-33.0) pg MCHC 32.8 (31.0-35.0) g/dl RDW 12.8 (11.0-16.0) % Plt Count 152 L (160-400) X10*3/uL MPV 9.9 (9.4-12.3) fL Immature Gran % (Auto) 0.4 (0.0-0.4) % Neut % (Auto) 59.4 (45-73) % Lymph % (Auto) 20.7 (20-40) % [place] % (Auto) 7.1 (2-11) % Eos % (Auto) 12.0 H (0-4) % Baso % (Auto) 0.4 (0-2) % Lymph # (Auto) 1.0 L (1.2-4.9) X10*3/uL [place] # (Auto) 0.4 (0.1-1.2) X10*3/uL Eos # (Auto) 0.6 H (0.0-0.4) X10*3/uL Baso # (Auto) 0.0 (0.0-0.2) X10*3/uL Abs Immat Gran (auto) 0.02 (0.00-0.03) X10*3/uL Absolute Neuts (auto) 2.9 (2.0-8.3) X10*3/uL Absolute Nucleated RBC 0.000 (0.0-0.012) X10*3/uL Nucleated RBC % (auto) 0.0 (0.0-0.2) /100WBC PT 12.6 D (10.8-13.0) SEC INR 1.1 (0.9-1.1) APTT 28.1 D (24.1-38.0) SEC Sodium 136 (135-145) mmol/L Potassium 4.1 (3.3-5.1) mmol/l Chloride 101 (96-108) mmol/L Carbon Dioxide 29 (22-29) mmol/L Anion Gap 10 L (12-20) BUN 14 (9-16) mg/dL Creatinine 0.78 (0.5-1.4) mg/dL Estim Creat Clear Calc 7.3 Estimated GFR > 60 Random Glucose 152 H (60-115) mg/dL Calcium 9.2 (8.4-10.2) mg/dL Magnesium 1.6 (1.6-2.6) mg/dL Total Bilirubin 0.3 (0.0-1.0) mg/dL Direct Bilirubin 0.2 (0.0-0.5) mg/dL AST 31 (5-31) U/L ALT 37 H (0-31) U/L Alkaline Phosphatase 54 (39-117) U/L Total Protein 7.1 (6.5-8.0) g/dL Albumin 4.2 (3.5-5.0) g/dL Lipase 38 (8-78) U/L Discharge Plan Discharge Clinical Impression: Mass of pancreas Patient Disposition: Home, Self-Care Instructions: Abdominal Pain (ED) Additional Instructions: return to ED for any worsening symptoms or concerns your oncologist will call you with your biopsy appointment Prescriptions: New oxycodone 5 mg capsule 5 mg PO TID PRN (Reason: pain) Qty: 20 RF: 0 No Action nitroglycerin 0.4 mg tablet, sublingual 0.4 mg sublingual Q5M PRN (Reason: chest pain) 90 Days Qty: 20 RF: 0 warfarin 4 mg tablet See Rx Instructions mg PO DAILY 30 Days Qty: 60 RF: 3 Hold Instructions: Resume on 11/05/20. losartan 25 mg tablet 25 mg PO DAILY Qty: 30 RF: 5 fluticasone furoate [Arnuity Ellipta] 200 mcg/actuation blister with device 1 inh inhalation DAILY Qty: 30 RF: 5 atorvastatin 40 mg tablet 40 mg PO DAILY Qty: 90 RF: 1 clotrimazole-betamethasone 1-0.05 % cream 1 appl topical BID 14 Days Qty: 30 RF: 0 albuterol sulfate 90 mcg/actuation HFA aerosol inhaler 2 puff inhalation QID PRN (Reason: for wheezing) Qty: 8.5 RF: 0 tramadol 50 mg tablet 50 mg PO BID PRN (Reason: pain) 30 Days Qty: 60 RF: 0 montelukast 10 mg tablet 10 mg PO BEDTIME Qty: 90 RF: 2 metformin 500 mg tablet 500 mg PO DAILY RF: 0 metoprolol succinate 200 mg tablet extended release 24 hr 200 mg PO DAILY RF: 0 carbamazepine 200 mg tablet 200 mg PO DAILY RF: 0 aspirin 81 mg tablet,chewable 81 mg PO DAILY RF: 0 Hold Instructions: Resume on 11/06/20. gabapentin 100 mg capsule 300 mg PO BID RF: 0 Spiriva with HandiHaler 18 mcg capsule, w/inhalation device 1 cap inhalation DAILY RF: 0 calcium carbonate-vitamin D3 600 mg(1,500mg) -400 unit tablet 1 tab PO BID RF: 0 ferrous gluconate 324 mg (37.5 mg iron) tablet 324 mg PO DAILY RF: 0 carbamazepine 200 mg 100 mg PO BID RF: 0 omeprazole 40 mg capsule,delayed release(DR/EC) 40 mg PO DAILY RF: 0 Print Language: Amharic [facility] Past Medical History Attestation statement: The following information was validated with the patient. Source: old records reviewed Medical History Anxiety CHF (congestive heart failure) COPD (chronic obstructive pulmonary disease) Coronary artery disease Current use of anticoagulant therapy Elevated brain natriuretic peptide (BNP) level Esophageal hernia HTN (hypertension) Hyponatremia Pacemaker Type 2 diabetes mellitus with hyperglycemia Surgical History History of hemicolectomy History of incisional hernia repair History of pacemaker Family History Family History (Updated 11/05/20 @ 06:36 by CHELO Jerome) Father Medical history unknown Mother Diabetes Hypertension Social History Social History Household Members: Family Housing: House Alcohol intake: never Smoking Status: Never smoker Use of substances other than those prescribed or required for medical reasons: No Advance Directives: No Advance Directives Information Provided: Yes service: No Current occupational status: unemployed
[2020-11-07] MEDS: ondansetron HCL 4 MG/2 ML VIAL IVPUSH (16:46)
[2020-11-07 16:47] VITALS: RESP 18
[2020-11-07] MEDS: 0.9 % Sodium Chloride 500 ML IV (16:47)
[2020-11-07] MEDS: Morphine Sulfate 4 MG/ML CARTRIDGE IVPUSH (16:47)
[2020-11-07 16:58] LABS: MANUAL DIFF FLAG NO
[2020-11-07 17:03] LABS: Basophils Percent Auto 0.4 % (0-2); Eosinophils Absolute Auto 0.6 X10*3/uL (0.0-0.4); Hematocrit 37.5 % (37-47); Hemoglobin 12.3 g/dl (12.0-16.0); Imm Gran Abs Auto 0.02 X10*3/uL (0.00-0.03); Imm Gran Pct Auto 0.4 % (0.0-0.4); Lymphocytes Percent Auto 20.7 % (20-40); Mean Corpuscular HGB Conc 32.8 g/dl (31.0-35.0); Mean Corpuscular Hemoglobin 29.6 pg (27.0-33.0); Mean Corpuscular Volume 90.1 fL (80-98); Mean Platelet Volume 9.9 fL (9.4-12.3); Monocytes Absolute Auto 0.4 X10*3/uL (0.1-1.2); Monocytes Percent Auto 7.1 % (2-11); Neutrophils Absolute Auto 2.9 X10*3/uL (2.0-8.3); Neutrophils Percent Auto 59.4 % (45-73); Platelet Count 152 X10*3/uL (160-400); Red Blood Count 4.16 X10*6/uL (4.20-5.50); Red Cell Distribution Width 12.8 % (11.0-16.0); White Blood Count 4.9 X10*3/uL (4.8-10.8)
[2020-11-07 17:05] LABS: INTERNATIONAL NORM RATIO 1.1 (0.9-1.1); Prothrombin Time 12.6 SEC (10.8-13.0)
[2020-11-07 17:08] LABS: Partial Thromboplastin Time 28.1 SEC (24.1-38.0)
[2020-11-07 17:24] LABS: Alanine Aminotransferase 37 U/L (0-31); Albumin Level 4.2 g/dL (3.5-5.0); Alkaline Phosphatase 54 U/L (39-117); Anion Gap 10 (12-20); Aspartate Amino Transferase 31 U/L (5-31); Bilirubin Direct 0.2 mg/dL (0.0-0.5); Bilirubin Total 0.3 mg/dL (0.0-1.0); Blood Urea Nitrogen 14 mg/dL (9-16); Calcium 9.2 mg/dL (8.4-10.2); Carbon Dioxide 29 mmol/L (22-29); Chloride 101 mmol/L (96-108); Creatinine Clr Calc Pharmacy 7.3; Estimated Glomerular Filt Rate > 60; Glucose Random 152 mg/dL (60-115); Lipase 38 U/L (8-78); Magnesium 1.6 mg/dL (1.6-2.6); Potassium 4.1 mmol/l (3.3-5.1); Sodium 136 mmol/L (135-145); Total Protein 7.1 g/dL (6.5-8.0)
[2020-11-07 17:34] VITALS: BP 143/60; PULSE 60; RESP 16; O2SAT 96
--- NOTE | 2020-11-11 10:59 | MHC.HEMONCSW ---
CT GUIDED BX ORDER PLACED IN O.F. TO HAVE THIS DONE TOMORROW PER [facility]. A# [id number].
--- NOTE | 2020-11-20 10:46 | MHC.HEMONCSW ---
PET PA WENT TO [facility] FOR CLINICAL REVIEW. CASE# [id number] WAIT DECISION.
== END 2020-11-07 18:33 | disposition home or self-care (01) ==
PROVIDERS: Emergency Provider Emergency Medicine; PCP Internal Medicine
DX: K86.89 Other specified diseases of pancreas (principal); R10.13 Epigastric pain; R10.33 Periumbilical pain; I10 Essential (primary) hypertension; I25.10 Atherosclerotic heart disease of native coronary artery without angina pectoris; Z79.899 Other long term (current) drug therapy
CPT/HCPCS: 36415; 80048; 80076; 83690; 83735; 85025; 85610; 85730; 96361; 96374; 96375; 99284; J2270; J2405

== ENCOUNTER 2020-11-12 11:00 | Day surgery (SDC) | payer OTHER, SELFPAY ==
[2020-11-12] VITALS (7 sets, daily range): BP systolic 131–165; BP diastolic 61–78; PULSE 60–70; RESP 16; TEMP 36.3–36.8; O2SAT 92–97; BMI 24.2
[2020-11-12 11:50] LABS: MANUAL DIFF FLAG NO
[2020-11-12 11:58] LABS: Basophils Percent Auto 0.4 % (0-2); Eosinophils Absolute Auto 0.5 X10*3/uL (0.0-0.4); Eosinophils Percent Auto 8.8 % (0-4); Hematocrit 34.9 % (37-47); Hemoglobin 11.5 g/dl (12.0-16.0); Imm Gran Abs Auto 0.01 X10*3/uL (0.00-0.03); Imm Gran Pct Auto 0.2 % (0.0-0.4); Lymphocytes Absolute Auto 1.1 X10*3/uL (1.2-4.9); Lymphocytes Percent Auto 18.8 % (20-40); Mean Corpuscular Hemoglobin 29.7 pg (27.0-33.0); Mean Corpuscular Volume 90.2 fL (80-98); Mean Platelet Volume 10.3 fL (9.4-12.3); Monocytes Absolute Auto 0.4 X10*3/uL (0.1-1.2); Monocytes Percent Auto 7.1 % (2-11); Neutrophils Absolute Auto 3.7 X10*3/uL (2.0-8.3); Neutrophils Percent Auto 64.7 % (45-73); Platelet Count 143 X10*3/uL (160-400); Red Blood Count 3.87 X10*6/uL (4.20-5.50); Red Cell Distribution Width 13.2 % (11.0-16.0); White Blood Count 5.7 X10*3/uL (4.8-10.8)
[2020-11-12 12:05] LABS: INTERNATIONAL NORM RATIO 1.1 (0.9-1.1)
[2020-11-12 12:08] LABS: Partial Thromboplastin Time 29.8 SEC (24.1-38.0)
--- NOTE | 2020-11-12 12:43 | CT_ITS ---
PROCEDURE: CT GUIDED BIOPSY, ABDOMINAL MASS CLINICAL INFORMATION: Pancreatic mass COMPARISON: Previous CT of the abdomen and pelvis 10/30/2020 TECHNIQUE: Procedure and risks and benefits including bleeding, infection and pancreatitis were discussed with the patient through an budder and informed consent was obtained. The patient was positioned in the supine position. Limited axial images through the upper abdomen were performed following 85 mL of Omnipaque 350 intravenous contrast. Intravenous contrast was administered to identify the splenic vein and artery.. The upper midline abdomen was prepped and draped in the usual fashion. The skin and soft tissues were anesthetized with 1% lidocaine plain. Using CT guidance and a coaxial system, access to the mass in the head/neck of the pancreas was obtained. Total of 4 22-gauge FNA specimens were obtained. There is no complication. Patient received Versed 2 mg and fentanyl 100 mcg intravenously during the procedure. Total sedation time was [address] examination was performed using dose optimization techniques as appropriate, variously including the following: *Automated exposure control *Adjustment of mA and/or kV according to patient size (this includes techniques or standardized protocols for targeted exams where dose is matched to indication/reason for exam; i.e. extremities or head) *Use of iterative reconstruction technique DLP: 225 mGy-cm FINDINGS: There is diffuse enlargement of the head and neck of the pancreas. The head of the pancreas was targeted for fine-needle aspiration. Postprocedure images demonstrate no evidence of hemorrhage. There is a large esophageal hernia. There are innumerable bibasilar pulmonary nodules. There is a mass in the head, neck in some of the body the pancreas that is similar to previous exam. CT/CT biopsy abdomen percutaneous IMPRESSION: CT-guided pancreas fine-needle aspiration.
--- NOTE | 2020-11-12 14:09 | HO.RADPN ---
RADIOLOGY Narrative Narrative: Using CT guidance and coaxial system, 4 22 g fna from pancreas mass. no complication.
[2020-11-12] MEDS: iohexoL 350 MG/ML 100 ML INFUS..BTL IV (14:24)
[2020-11-12] MEDS: Lidocaine HCl 1 % MPF 5 ML VIAL 10 ML SUBCUT (14:25)
--- NOTE | 2020-11-21 09:06 | MHC.HEMONCSW ---
PET SCAN AT [facility] 11/26/19. THEY WILL CALL PATIENT WITH EXACT TIME. A# [id number] 11/10/20 TO 01/19/21.
== END 2020-11-12 16:26 | disposition home or self-care (01) ==
PROVIDERS: Radiology Diagnostic Radiology; PCP Internal Medicine; Visit Provider Radiology Diagnostic Radiology
DX: D13.6 Benign neoplasm of pancreas (principal); E11.9 Type 2 diabetes mellitus without complications; J44.9 Chronic obstructive pulmonary disease, unspecified; I10 Essential (primary) hypertension; Z79.82 Long term (current) use of aspirin; Z79.84 Long term (current) use of oral hypoglycemic drugs; Z79.899 Other long term (current) drug therapy; Z79.51 Long term (current) use of inhaled steroids; Z79.01 Long term (current) use of anticoagulants
CPT/HCPCS: 10009; 36415; 49180; 77012; 85025; 85610; 85730; 88172; 88173; 88305; 99152; 99153; J2250; J3010; Q9967

== ENCOUNTER → 2020-11-19 16:29 | Outpatient (BNVA) | payer OTHER, SELFPAY | PROVIDERS: PCP Internal Medicine; Visit Provider Internal Medicine | DX: I63.9 Cerebral infarction, unspecified (principal); Z51.81 Encounter for therapeutic drug level monitoring; Z79.01 Long term (current) use of anticoagulants | CPT/HCPCS: Q3014 ==

== ENCOUNTER → 2020-11-25 08:58 | Outpatient (BNVA) | payer OTHER, SELFPAY | PROVIDERS: PCP Internal Medicine; Visit Provider Internal Medicine | DX: Z86.73 Personal history of transient ischemic attack (TIA), and cerebral infarction without residual deficits (principal); Z51.81 Encounter for therapeutic drug level monitoring; Z79.01 Long term (current) use of anticoagulants | CPT/HCPCS: 85610; 99211 ==

== ENCOUNTER → 2020-11-28 10:30 | Outpatient (BNV) | payer OTHER, SELFPAY | PROVIDERS: PCP Internal Medicine; Visit Provider Internal Medicine Medical Oncology | DX: C25.9 Malignant neoplasm of pancreas, unspecified (principal) | CPT/HCPCS: 99212; 99213; 99214 ==

== ENCOUNTER → 2020-11-29 12:36 | Outpatient (BNVA) | payer OTHER, SELFPAY | PROVIDERS: PCP Internal Medicine; Visit Provider Nurse Practitioner Family | DX: Z45.02 Encounter for adjustment and management of automatic implantable cardiac defibrillator (principal); I42.9 Cardiomyopathy, unspecified | CPT/HCPCS: 99212 ==

== ENCOUNTER 2020-12-03 12:31 | Outpatient (REF) | payer OTHER, SELFPAY ==
--- NOTE | 2020-12-03 07:55 | PE_ITS ---
EXAMINATION: Fluorine-18 FDG PET/CT Scan CLINICAL INDICATION: Initial treatment management. Pancreatic cancer, staging. PROCEDURE: 74 minutes following the intravenous administration of 16.4 mCi of fluorine 18 FDG, images from the base of the skull to the mid thighs were obtained using a combined PET/CT scanner with CT scan based attenuation correction. No intravenous contrast was administered. No oral contrast was administered. Transverse, coronal, sagittal, and volume reconstruction projections were obtained. The patient's blood glucose as determined by a finger stick, was 147 mg/dl immediately prior to injection. Total CT exam dose-length product 387.33 mGy-cm * These CT images were obtained using dose optimization techniques as appropriate, variously including the following: Automated exposure control * Adjustment of mA and/or kV according to patient size (this includes techniques or standardized protocols for targeted exams where dose is matched to indication/reason for exam; i.e. extremities or head) * Use of iterative reconstruction technique COMPARISON: No previous PET/CT scan is available for comparison. The diagnostic CT scan of the abdomen and pelvis, dated 10/30/2020, is available for comparison. CT scan of the chest dated 04/10/2014 is also available for comparison. MRI of the brain dated 12/14/2019 is available for comparison. FINDINGS: (Slice numbers described in this report are numbered superiorly to inferiorly with slice #1 in the head) NECK AND VISUALIZED HEAD: A large focus of markedly diminished FDG activity associated with encephalomalacia on the CT images in the left posterior parietal cortex is noted and corresponds to the acute infarct visualized on the CT scan of the brain dated 12/14/2019. No other foci of abnormal FDG activity are noted in the neck or visualized head. The distribution of FDG activity is otherwise physiological. There is no cervical lymphadenopathy. THORAX: Multiple predominantly subcentimeter pulmonary nodules are present involving all lung lobes. The largest nodule is located posterolaterally in the base of the left lower lobe and measures 1.2 x 0.7 cm and shows weak FDG activity, SUVmax 1.9, slice 83/267. Most of the other nodules are too small to be characterized on the FDG PET images and no additional foci of abnormal FDG activity are present in the chest. A large hiatal hernia is present, similar in appearance to the chest CTA dated 07/17/2010. The pulmonary nodules all appear new since that date. There is some compressive atelectasis in the right lower lobe adjacent to the hiatal hernia. There is no mediastinal, supraclavicular, or axillary lymphadenopathy. There is no pleural or pericardial fluid, or pneumothorax. A left chest pacemaker and associated leads are noted. ABDOMEN AND PELVIS: There is mildly increased activity in the recently biopsied pancreatic mass. This shows SUVmax 3.9, slice 123/267. The mass does not appear significantly changed from the CT scan dated 10/30/2020 and is not well delineated from adjacent pancreatic tissues on the CT images performed without intravenous contrast. This involves the head and right side of the pancreatic body. The FDG intensity is similar to that of the liver which shows SUVmax 4.0, slice 111/267. There is FDG activity throughout the gastrointestinal tract of markedly varying intensities, with the most prominent activity in the hepatic flexure of the large bowel, without definite corresponding CT abnormalities. There is diverticulosis without evidence of diverticulitis. A large duodenal diverticulum is present adjacent to the pancreatic head, unchanged in appearance since 10/30/2020. The liver, gallbladder, and spleen are unremarkable. The kidneys and adrenal glands are unremarkable. There is no retroperitoneal, mesenteric, pelvic or inguinal lymphadenopathy. A right-sided bladder diverticulum is present. Uterine fibroids are probably present but the pelvic organs are otherwise unremarkable. MUSCULOSKELETAL: No foci of abnormal FDG activity are present in the osseous structures. There are mild degenerative changes in the spine but no suspicious sclerotic or lytic lesions are visualized. VASCULAR: Vascular calcifications including coronary are noted. A coronary stent is probably present. PET/PET CT fusion skull to thigh IMPRESSION: 1. There is mild FDG activity in the pancreatic mass involving the head and adjacent pancreatic body, corresponding to the recently biopsied malignancy. 2. Multiple predominantly subcentimeter pulmonary nodules are present throughout the lungs and likely represent metastases. Most of these are too small to be characterized on the FDG PET images, but the largest shows weak FDG activity. 3. No additional abnormalities suspicious for metastatic or other malignant lesions are noted. 4. Chronic left posterior parietal cerebral infarction. 5. Large hiatal hernia.
== END 2020-12-03 12:32 | disposition home or self-care (01) ==
LOC: HO.PET 12:31
PROVIDERS: Visit Provider Internal Medicine Medical Oncology
DX: Z13.89 Encounter for screening for other disorder (principal)

== ENCOUNTER 2020-12-11 15:22 | Outpatient (REF) | payer OTHER, SELFPAY | END 2020-12-11 15:23 | disposition home or self-care (01) | LOC: HO.LAB 15:22 | PROVIDERS: Visit Provider Internal Medicine | DX: Z20.822 Contact with and (suspected) exposure to COVID-19 (principal) | CPT/HCPCS: 36415; C9803; U0003 ==

== ENCOUNTER 2020-12-17 09:50 | Inpatient (IN) | payer OTHER, SELFPAY ==
[2020-12-17] VITALS (8 sets, daily range): BP systolic 108–150; BP diastolic 59–70; PULSE 71–82; RESP 16–20; TEMP 36.6–37.2; O2SAT 91–99; BMI 26.5
--- NOTE | 2020-12-17 10:08 | ECG_ITS ---
Test Reason : DIFFICULTY BREATHING Blood Pressure : / mmHG Vent. Rate : 072 BPM Atrial Rate : 072 BPM P-R Int : 110 ms QRS Dur : 150 ms QT Int : 450 ms P-R-T Axes : 047 -58 118 degrees QTc Int : 492 ms Atrial-sensed ventricular-paced rhythm Abnormal ECG When compared with ECG of 30-OCT-2020 15:36, Vent. rate has increased BY 6 BPM Referred By: Ashanti Goncalves Electronically Signed By:Ernesto Freeman
--- NOTE | 2020-12-17 10:09 | XR_ITS ---
EXAMINATION: XR CHEST CLINICAL INFORMATION: Dyspnea, COVID COMPARISON: Chest radiographs 10/30/2020, 12/14/2019, 11/28/2019; PET/CT 12/03/2020. TECHNIQUE: Portable upright AP view of the chest was obtained. FINDINGS: There is large hiatal hernia extending to the right medial base and overlying the cardiopericardial silhouette, similar to prior studies. There is passive atelectasis adjacent to the hernia again seen. The lungs otherwise clear with no lobar or segmental airspace consolidation or definite groundglass opacity. The vascularity is normal. The costophrenic sulci are well-defined. There is a 3-lead AICD. No acute bony abnormality. XR/XR chest 1V IMPRESSION: No acute intrathoracic disease.
--- NOTE | 2020-12-17 10:10 | ED.WEAKNESS ---
HPI - Weakness General Chief complaint: General Medical Stated complaint: covid+ Time Seen by Provider: 12/17/20 09:54 Source: patient, family and old records reviewed Mode of arrival: ambulatory Limitations: no limitations History of Present Illness HPI Narrative: 70 yo female with COPD, CHF, HTN, pancreatic cancer with mets to lungs just had first round of chemo on 12/12 was dx with COVID at the same time comes in with shortness of breath, body aches, chronic abdominal pain, nausea and weakness, she states she hast not taken her coumadin for 1 week as well, reports fevers in low 100s at home 100.3 MD Complaint: generalized weakness Onset (ago): day(s) (5) Duration: constant and progressively worsening Location: generalized Severity: moderate Quality: aching Relieving factors: none Exacerbating factors: movement and exertion Context: new medication and recent illness Associated symptoms: fever/chills, loss of appetite, nausea/vomiting, myalgias and shortness of breath Related Data Home Medications Medication Instructions Recorded Confirmed aspirin 81 mg PO DAILY 10/30/20 12/17/20 calcium carbonate-vitamin D3 1 tab PO BID 10/30/20 12/17/20 carbamazepine 200 mg PO DAILY 10/30/20 12/17/20 gabapentin 300 mg PO BID 10/30/20 12/17/20 metoprolol succinate 200 mg PO DAILY 10/30/20 12/17/20 omeprazole 40 mg PO DAILY 10/30/20 12/17/20 budesonide-formoterol HFA 160 2 puff INHALATION BID 11/19/20 12/17/20 mcg-4.5 mcg/actuation aerosol inhaler warfarin 2 mg tablet 2 mg PO DAILY 11/19/20 12/17/20 blood sugar diagnostic #10 ea 11/28/20 11/28/20 amiodarone 200 mg tablet 200 mg PO DAILY 11/29/20 ondansetron HCl [Zofran] 4 mg PO Q8H 12/17/20 12/17/20 Previous Rx's Medication Instructions Recorded warfarin 4 mg tablet See Rx Instructions PO DAILY 30 08/29/20 Days #60 tab losartan 25 mg tablet 25 mg PO DAILY #30 tab 09/05/20 atorvastatin 40 mg tablet 40 mg PO DAILY #90 tab 10/21/20 albuterol sulfate 90 mcg/actuation 2 puff INHALATION QID PRN #8.5 g 10/25/20 aerosol inhaler alprazolam 0.25 mg tablet 0.25 mg PO BID #60 tab 11/11/20 montelukast 10 mg tablet 10 mg PO BEDTIME #90 tab 11/11/20 fluticasone furoate 200 1 inh INHALATION DAILY #30 cap 11/14/20 mcg/actuation blister powder for inhalation morphine [MS Contin] 30 mg PO Q12H #60 tab 11/28/20 oxycodone 5 mg PO Q6H PRN #60 tab 11/28/20 ferrous gluconate 324 mg (37.5 mg 324 mg PO DAILY #90 tab 12/02/20 iron) tablet tiotropium bromide 18 mcg capsule 1 cap INHALATION DAILY #90 inh 12/11/20 with inhalation device metformin [Glucophage XR] 500 mg PO BID #60 tab 12/13/20 Allergies Allergy/AdvReac Type Severity Reaction Status Date / Time No Known Allergies Allergy Verified 11/05/20 06:34 Review of Systems Review of Systems: Constitutional : No Weight loss, pos Fever, No Chills ENT/Mouth : No sore throat, No Rhinorrhea Eyes: No Swelling, No Redness Cardiovascular : No Chest Pain, pos SOB, NoEdema Respiratory : pos Cough, No Sputum, No Wheezing Gastrointestinal : Positive Nausea, no Vomiting, no Diarrhea, positive abdominal Pain, No Hematochezia, No Melena Genitourinary : No Dysuria, No Urinary Frequency, No Hematuria, No Urgency Musculoskeletal : No joint pain, pos Myalgias, No Joint Swelling Skin : No Skin Lesions, No rash Neuro : pos Weakness, No Numbness, No Dizziness, No Headache Psych : No Anxiety/Panic, No Depression Heme/Lymph: No Bruising, No Lymphadenopathy Endocrine : No Polyuria, No Polydipsia All other systems reviewed and are negative. [facility] Past Medical History Attestation statement: The following information was validated with the patient. Medical History Anxiety and depression Biventricular ICD (implantable cardioverter-defibrillator) in place Cardiomyopathy Congestive heart failure COPD (chronic obstructive pulmonary disease) Coronary artery disease Current use of anticoagulant therapy CVA (cerebral vascular accident) Diverticulitis Esophageal hernia GERD (gastroesophageal reflux disease) History of renal calculi HTN (hypertension) Hypercholesterolemia Hyponatremia Osteopenia Type 2 diabetes mellitus with hyperglycemia Umbilical hernia Surgical History History of hemicolectomy History of incisional hernia repair History of pacemaker Family History Family History Father Medical history unknown Mother Diabetes Hypertension Social History Social History Household Members: Family Housing: House Alcohol intake: never Smoking Status: Unknown if ever smoked Smoked in Last 30 Days: No Use of substances other than those prescribed or required for medical reasons: No Advance Directives: No Advance Directives Information Provided: No service: No Current occupational status: unemployed Physical Exam Vital Signs: Vital Signs: Last Vital Signs Temp 98.7 F 12/17/20 11:22 Pulse 75 12/17/20 11:22 Resp 17 12/17/20 11:22 BP 108/63 12/17/20 11:22 Pulse Ox 96 12/17/20 11:22 Body Mass Index 26.5 Appearance: Alert. Oriented X3. No acute distress. Eyes: Pupils equal, round and reactive to light. ENT: Pharynx dry MMM Neck: Normal inspection. Neck supple. CVS: Normal heart rate and rhythm. Pulses normal. Respiratory: No respiratory distress. Breath sounds decreased, rhonchi very faint end exp wheezes Abdomen: Soft and mild ttp along upper abdomen no rebound or guarding Skin: Skin warm and dry. Normal skin color. Normal skin turgor. Extremities: No lower extremity edema. No calf ttp Neuro: Oriented X 3. No motor deficit. No sensory deficit. Course Course Course Narrative: ambulation trial 90% very weak had to be held up unable to really ambulate ddimer lower limits PE with COVID seems unlikely given fevers at home though likely COVID she is neutropenic will add on cefepime IV planned admit MDM - Weakness MDM Narrative Medical decision making narrative: 70 yo female with multiple medical problems off her coumadin here with recent chemo for pancreatic cancer - reports weakness, dyspnea, nausea, cough, diffuse pain since Wednesday dx with COVID on 12/11 - at this time will need labs, ddimer, EKG, CXR, neb ordered along with IV dexamethasone, given her weakness she may need admission for further care Lab Data Result diagrams: 12/17/20 10:17 12/17/20 10:17 Labs: Lab Results 12/17/20 12/17/20 12/17/20 Range/Units 10:17 10:17 10:17 WBC 1.5 L (4.8-10.8) X10*3/uL RBC 4.45 (4.20-5.50) X10*6/uL Hgb 12.7 (12.0-16.0) g/dl Hct 38.8 (37-47) % MCV 87.2 (80-98) fL MCH 28.5 (27.0-33.0) pg MCHC 32.7 (31.0-35.0) g/dl RDW 12.3 (11.0-16.0) % Plt Count 96 L D (160-400) X10*3/uL MPV 11.0 (9.4-12.3) fL Immature Gran % (Auto) 0.7 H (0.0-0.4) % Neut % (Auto) 64.9 (45-73) % Lymph % (Auto) 24.8 (20-40) % [place] % (Auto) 4.1 (2-11) % Eos % (Auto) 5.5 H (0-4) % Baso % (Auto) 0.0 (0-2) % Lymph # (Auto) 0.4 L (1.2-4.9) X10*3/uL [place] # (Auto) 0.1 (0.1-1.2) X10*3/uL Eos # (Auto) 0.1 (0.0-0.4) X10*3/uL Baso # (Auto) 0.0 (0.0-0.2) X10*3/uL Abs Immat Gran (auto) 0.01 (0.00-0.03) X10*3/uL Absolute Neuts (auto) 0.9 L (2.0-8.3) X10*3/uL Absolute Nucleated RBC 0.000 (0.0-0.012) X10*3/uL Nucleated RBC % (auto) 0.0 (0.0-0.2) /100WBC Smear Tech's Comments VERIFIED PT 12.5 (10.8-13.0) SEC INR 1.1 (0.9-1.1) APTT 25.2 (24.1-38.0) SEC D-Dimer 234 NG/ML Sodium 131 L (135-145) mmol/L Potassium 4.2 (3.3-5.1) mmol/l Chloride 95 L (96-108) mmol/L Carbon Dioxide 24 (22-29) mmol/L Anion Gap 16 (12-20) BUN 11 (9-16) mg/dL Creatinine 0.75 (0.5-1.4) mg/dL Estim Creat Clear Calc 57.2 Estimated GFR > 60 Random Glucose 195 H (60-115) mg/dL Lactic Acid (0.5-2.0) mmol/L Calcium 8.4 (8.4-10.2) mg/dL Magnesium 1.7 (1.6-2.6) mg/dL Ferritin 719 H (10-250) ng/mL Total Bilirubin 0.6 (0.0-1.0) mg/dL Direct Bilirubin 0.2 (0.0-0.5) mg/dL AST 28 D (5-31) U/L ALT 34 H (0-31) U/L Alkaline Phosphatase 57 (39-117) U/L Lactate Dehydrogenase 206 (122-220) U/L Troponin I High Sens (<3.5-17.0) ng/L B-Natriuretic Peptide (<100) pg/mL Total Protein 6.9 (6.5-8.0) g/dL Albumin 3.9 (3.5-5.0) g/dL Procalcitonin ng/mL 12/17/20 12/17/20 12/17/20 Range/Units 10:17 10:17 10:39 WBC (4.8-10.8) X10*3/uL RBC (4.20-5.50) X10*6/uL Hgb (12.0-16.0) g/dl Hct (37-47) % MCV (80-98) fL MCH (27.0-33.0) pg MCHC (31.0-35.0) g/dl RDW (11.0-16.0) % Plt Count (160-400) X10*3/uL MPV (9.4-12.3) fL Immature Gran % (Auto) (0.0-0.4) % Neut % (Auto) (45-73) % Lymph % (Auto) (20-40) % [place] % (Auto) (2-11) % Eos % (Auto) (0-4) % Baso % (Auto) (0-2) % Lymph # (Auto) (1.2-4.9) X10*3/uL [place] # (Auto) (0.1-1.2) X10*3/uL Eos # (Auto) (0.0-0.4) X10*3/uL Baso # (Auto) (0.0-0.2) X10*3/uL Abs Immat Gran (auto) (0.00-0.03) X10*3/uL Absolute Neuts (auto) (2.0-8.3) X10*3/uL Absolute Nucleated RBC (0.0-0.012) X10*3/uL Nucleated RBC % (auto) (0.0-0.2) /100WBC Smear Tech's Comments PT (10.8-13.0) SEC INR (0.9-1.1) APTT (24.1-38.0) SEC D-Dimer NG/ML Sodium (135-145) mmol/L Potassium (3.3-5.1) mmol/l Chloride (96-108) mmol/L Carbon Dioxide (22-29) mmol/L Anion Gap (12-20) BUN (9-16) mg/dL Creatinine (0.5-1.4) mg/dL Estim Creat Clear Calc Estimated GFR Random Glucose (60-115) mg/dL Lactic Acid 0.8 (0.5-2.0) mmol/L Calcium (8.4-10.2) mg/dL Magnesium (1.6-2.6) mg/dL Ferritin (10-250) ng/mL Total Bilirubin (0.0-1.0) mg/dL Direct Bilirubin (0.0-0.5) mg/dL AST (5-31) U/L ALT (0-31) U/L Alkaline Phosphatase (39-117) U/L Lactate Dehydrogenase (122-220) U/L Troponin I High Sens 44.1 H (<3.5-17.0) ng/L B-Natriuretic Peptide 51 (<100) pg/mL Total Protein (6.5-8.0) g/dL Albumin (3.5-5.0) g/dL Procalcitonin 0.02 ng/mL ECG Data Attestation: I personally reviewed and interpreted this ECG as follows: ECG interpretation date: 12/17/20 ECG interpretation time: 10:47 Interpretation: Rate: 72 Rhythm: atrial sensed pacing, continuous [place]: left Normal P waves. Normal NIK. wide QRS complex. ST T wave : nonspecific, no MARGY qTC: normal prior studies: no acute ischemia The study has been interpreted contemporaneously by me. . Discharge Plan Discharge Clinical Impression: COPD (chronic obstructive pulmonary disease), Neutropenia, COVID-19, Fever, Weakness Patient Disposition: Admitted As Inpatient Prescriptions: No Action warfarin 4 mg tablet See Rx Instructions mg PO DAILY 30 Days Qty: 60 RF: 3 Hold Instructions: Resume on 11/05/20. losartan 25 mg tablet 25 mg PO DAILY Qty: 30 RF: 5 atorvastatin 40 mg tablet 40 mg PO DAILY Qty: 90 RF: 1 albuterol sulfate 90 mcg/actuation HFA aerosol inhaler 2 puff inhalation QID PRN (Reason: for wheezing) Qty: 8.5 RF: 0 Arnuity Ellipta 200 mcg/actuation blister with device 1 inh inhalation DAILY Qty: 30 RF: 5 ferrous gluconate 324 mg (37.5 mg iron) tablet 324 mg PO DAILY Qty: 90 RF: 2 tiotropium bromide [Spiriva with HandiHaler] 18 mcg capsule, w/inhalation device 1 cap inhalation DAILY Qty: 90 RF: 3 ondansetron HCl [Zofran] 4 mg tablet 4 mg PO Q8H RF: 0 metoprolol succinate 200 mg tablet extended release 24 hr 200 mg PO DAILY RF: 0 carbamazepine 200 mg tablet 200 mg PO DAILY RF: 0 aspirin 81 mg tablet,chewable 81 mg PO DAILY RF: 0 Hold Instructions: Resume on 11/06/20. gabapentin 100 mg capsule 300 mg PO BID RF: 0 calcium carbonate-vitamin D3 600 mg(1,500mg) -400 unit tablet 1 tab PO BID RF: 0 omeprazole 40 mg capsule,delayed release(DR/EC) 40 mg PO DAILY RF: 0 morphine [MS Contin] 30 mg Tablet Extended Release 30 mg PO Q12H Qty: 60 RF: 0 oxycodone 5 mg Tablet 5 mg PO Q6H PRN (Reason: Breakthrough Pain, Moderate) Qty: 60 RF: 0 metformin [Glucophage XR] 500 mg Tablet Extended Release 24 Hr 500 mg PO BID Qty: 60 RF: 3 alprazolam 0.25 mg tablet 0.25 mg PO BID Qty: 60 RF: 0 montelukast 10 mg tablet 10 mg PO BEDTIME Qty: 90 RF: 2 warfarin 2 mg tablet 2 mg PO DAILY RF: 0 budesonide-formoterol 160-4.5 mcg/actuation HFA aerosol inhaler 2 puff inhalation BID RF: 0 (DME) [employer] Ultra Blue Test Strip Strip See Rx Instructions strip .ROUTE .MEDSUPPLY Qty: 10 RF: 0 amiodarone 200 mg tablet 200 mg PO DAILY RF: 0
[2020-12-17] MEDS: dexAMETHasone sod phosphate 4 MG/ML VIAL IVPUSH (10:21)
[2020-12-17] MEDS: ondansetron HCL 4 MG/2 ML VIAL IVPUSH (10:22)
[2020-12-17] MEDS: Morphine Sulfate 4 MG/ML CARTRIDGE IVPUSH (10:22)
[2020-12-17 10:27] LABS: Eosinophils Absolute Auto 0.1 X10*3/uL (0.0-0.4); Hemoglobin 12.7 g/dl (12.0-16.0); Lymphocytes Absolute Auto 0.4 X10*3/uL (1.2-4.9); MANUAL DIFF FLAG SCAN; PLT CLUMP 1; Red Cell Distribution Width 12.3 % (11.0-16.0); SCAN SMEAR FLAG 1
[2020-12-17 10:29] LABS: Eosinophils Percent Auto 5.5 % (0-4); Hematocrit 38.8 % (37-47); Imm Gran Abs Auto 0.01 X10*3/uL (0.00-0.03); Imm Gran Pct Auto 0.7 % (0.0-0.4); Lymphocytes Percent Auto 24.8 % (20-40); Mean Corpuscular HGB Conc 32.7 g/dl (31.0-35.0); Mean Corpuscular Hemoglobin 28.5 pg (27.0-33.0); Mean Corpuscular Volume 87.2 fL (80-98); Monocytes Absolute Auto 0.1 X10*3/uL (0.1-1.2); Monocytes Percent Auto 4.1 % (2-11); Neutrophils Absolute Auto 0.9 X10*3/uL (2.0-8.3); Neutrophils Percent Auto 64.9 % (45-73); Red Blood Count 4.45 X10*6/uL (4.20-5.50)
[2020-12-17] MEDS: Albuterol Sulfate (0.083%) 2.5 MG/3 ML VIAL.NEB INHALE (10:34)
[2020-12-17 10:35] LABS: Platelet Count 96 X10*3/uL (160-400); White Blood Count 1.5 X10*3/uL (4.8-10.8)
[2020-12-17 10:40] LABS: INTERNATIONAL NORM RATIO 1.1 (0.9-1.1); Prothrombin Time 12.5 SEC (10.8-13.0)
[2020-12-17 10:43] LABS: D Dimer 234 NG/ML; Partial Thromboplastin Time 25.2 SEC (24.1-38.0)
[2020-12-17 11:02] LABS: B Type Natriuretic Peptide 51 pg/mL (<100); Troponin-I High Sensitivity 44.1 ng/L (<3.5-17.0)
[2020-12-17 11:07] LABS: SLIDE REVIEW VERIFIED
[2020-12-17 11:14] LABS: Procalcitonin 0.02 ng/mL
[2020-12-17 11:19] LABS: Ferritin 719 ng/mL (10-250)
[2020-12-17 11:20] LABS: Lactic Acid 0.8 mmol/L (0.5-2.0)
[2020-12-17 11:21] LABS: Alanine Aminotransferase 34 U/L (0-31); Albumin Level 3.9 g/dL (3.5-5.0); Alkaline Phosphatase 57 U/L (39-117); Anion Gap 16 (12-20); Aspartate Amino Transferase 28 U/L (5-31); Bilirubin Direct 0.2 mg/dL (0.0-0.5); Bilirubin Total 0.6 mg/dL (0.0-1.0); Blood Urea Nitrogen 11 mg/dL (9-16); Calcium 8.4 mg/dL (8.4-10.2); Carbon Dioxide 24 mmol/L (22-29); Chloride 95 mmol/L (96-108); Creatinine Clr Calc Pharmacy 57.2; Estimated Glomerular Filt Rate > 60; Glucose Random 195 mg/dL (60-115); Lactate Dehydrogenase 206 U/L (122-220); Magnesium 1.7 mg/dL (1.6-2.6); Potassium 4.2 mmol/l (3.3-5.1); Sodium 131 mmol/L (135-145); Total Protein 6.9 g/dL (6.5-8.0)
[2020-12-17] MEDS: cefEPime HCl 2 GM in 0.9 % Sodium Chloride 50 ML IV (11:23)
--- NOTE | 2020-12-17 14:35 | P.HPHOSP_ITS ---
History of Present Illness Date of Service: 12/17/20 Chief Complaint: Weakness 70-year-old woman presenting to the ER with weakness and fever at home. She was diagnosed with pancreatic cancer and has been undergoing chemotherapy with Dr. Cifuentes. She noted that she had a fever at home and had generalized weakness and has been having nausea since the start of chemotherapy. She was noted to have a white blood cell count of 1.5, INR 1.1 (she had to hold her warfarin 3 days prior to a biopsy and unfortunately she did not resume it), sodium 131. COVID 19 PCR was positive. She was started on cefepime. She was also given albuterol, morphine, Zofran, dexamethasone. She will be admitted for further management and treatment of neutropenic fever. Review of Systems Review of Systems: Denies any recent fever chills or decrease in appetite respiratory denies any shortness of breath coverage production cardiovascular is adjustment of any PND or edema gastrointestinal denies any dysphagia abdominal pain nausea vomiting or diarrhea genitourinary denies any dysuria frequency or hematuria musculoskeletal denies any joint pain or swelling neuropsych denies any weakness or seizures all other systems reviewed are negative [facility] Medical History Anxiety and depression Biventricular ICD (implantable cardioverter-defibrillator) in place Cardiomyopathy Congestive heart failure COPD (chronic obstructive pulmonary disease) Coronary artery disease Current use of anticoagulant therapy CVA (cerebral vascular accident) Diverticulitis Esophageal hernia GERD (gastroesophageal reflux disease) History of renal calculi HTN (hypertension) Hypercholesterolemia Hyponatremia Osteopenia Type 2 diabetes mellitus with hyperglycemia Umbilical hernia Family History Father Medical history unknown Mother Diabetes Hypertension Surgical History History of hemicolectomy History of incisional hernia repair History of pacemaker Social History Household Members: Family Housing: House Do you presently have visiting nurse or other home services: No Alcohol intake: never Smoking Status: Never smoker Smoked in Last 30 Days: No Use of substances other than those prescribed or required for medical reasons: No Have you been hit, kicked, punched, or otherwise hurt by someone within the past year? If so, by whom?: No Do you feel safe in your current relationship?: No Current Relationship Is there a partner from a previous relationship who is making you feel unsafe now?: No Are you made to feel afraid or neglected: No Advance Directives: No Advance Directives Information Provided: No Do you have thoughts of harming others: None Do you have a plan to hurt others: No Plan Recently lost weight without trying: No service: No Current occupational status: unemployed Meds Allergies Allergy/AdvReac Type Severity Reaction Status Date / Time No Known Allergies Allergy Verified 11/05/20 06:34 Home Medications Medication Instructions Recorded Confirmed Type aspirin 81 mg PO DAILY 10/30/20 12/17/20 History calcium carbonate-vitamin D3 1 tab PO BID 10/30/20 12/17/20 History carbamazepine 200 mg PO DAILY 10/30/20 12/17/20 History gabapentin 300 mg PO BID 10/30/20 12/17/20 History metoprolol succinate 200 mg PO DAILY 10/30/20 12/17/20 History omeprazole 40 mg PO DAILY 10/30/20 12/17/20 History budesonide-formoterol HFA 160 2 puff INHALATION BID 11/19/20 12/17/20 History mcg-4.5 mcg/actuation aerosol inhaler warfarin 2 mg tablet 2 mg PO DAILY 11/19/20 12/17/20 History blood sugar diagnostic #10 ea 11/28/20 11/28/20 History amiodarone 200 mg tablet 200 mg PO DAILY 11/29/20 12/17/20 History ondansetron HCl [Zofran] 4 mg PO Q8H 12/17/20 12/17/20 History warfarin 1 tab PO DAILY 12/17/20 History Physical Exam Vital Signs and Narrative: Vital Signs: Last Vital Signs Temp 98.7 F 12/17/20 11:22 Pulse 71 12/17/20 13:15 Resp 16 12/17/20 13:15 BP 122/63 12/17/20 13:15 Pulse Ox 97 12/17/20 13:15 Body Mass Index 26.5 Appearing pale and thin head is normocephalic atraumatic eyes pupils are PERRLA sclera is anicteric mouth throat mucous membranes are intact and moist neck is supple no lymphadenopathy, no JVD noted lung normal expansion heart paced positive bowel sounds, abdomen is soft, nontender neuro patient is alert x3, no focal deficits Results Labs CBC and Chem 7: 12/17/20 10:17 12/17/20 10:17 Labs: Laboratory Results - last 24 hr 12/17/20 12/17/20 12/17/20 10:17 10:17 10:17 MCV 87.2 MCH 28.5 MCHC 32.7 RDW 12.3 Plt Count 96 L D MPV 11.0 Immature Gran % (Auto) 0.7 H Neut % (Auto) 64.9 Lymph % (Auto) 24.8 [place] % (Auto) 4.1 Eos % (Auto) 5.5 H Baso % (Auto) 0.0 Lymph # (Auto) 0.4 L [place] # (Auto) 0.1 Eos # (Auto) 0.1 Baso # (Auto) 0.0 Abs Immat Gran (auto) 0.01 Absolute Neuts (auto) 0.9 L Absolute Nucleated RBC 0.000 Nucleated RBC % (auto) 0.0 Smear Tech's Comments VERIFIED PT 12.5 INR 1.1 APTT 25.2 D-Dimer 234 Anion Gap 16 Estim Creat Clear Calc 57.2 Estimated GFR > 60 Random Glucose 195 H Lactic Acid Calcium 8.4 Magnesium 1.7 Ferritin 719 H Total Bilirubin 0.6 Direct Bilirubin 0.2 AST 28 D ALT 34 H Alkaline Phosphatase 57 Lactate Dehydrogenase 206 Troponin I High Sens B-Natriuretic Peptide Total Protein 6.9 Albumin 3.9 Procalcitonin 12/17/20 12/17/20 12/17/20 10:17 10:17 10:39 MCV MCH MCHC RDW Plt Count MPV Immature Gran % (Auto) Neut % (Auto) Lymph % (Auto) [place] % (Auto) Eos % (Auto) Baso % (Auto) Lymph # (Auto) [place] # (Auto) Eos # (Auto) Baso # (Auto) Abs Immat Gran (auto) Absolute Neuts (auto) Absolute Nucleated RBC Nucleated RBC % (auto) Smear Tech's Comments PT INR APTT D-Dimer Anion Gap Estim Creat Clear Calc Estimated GFR Random Glucose Lactic Acid 0.8 Calcium Magnesium Ferritin Total Bilirubin Direct Bilirubin AST ALT Alkaline Phosphatase Lactate Dehydrogenase Troponin I High Sens 44.1 H B-Natriuretic Peptide 51 Total Protein Albumin Procalcitonin 0.02 Imaging Radiologist's Impressions: Impressions Chest X-Ray 12/17/20 10:09 IMPRESSION: No acute intrathoracic disease. Assessment and Plan (1) Neutropenia: Qualifiers: Neutropenia type: secondary to cancer chemotherapy Qualified Code(s): D70.1 - Agranulocytosis secondary to cancer chemotherapy; T45.1X5A - Adverse effect of antineoplastic and immunosuppressive drugs, initial encounter Status: Acute (2) COVID-19: Status: Acute (3) Fever: Qualifiers: Fever type: unspecified Qualified Code(s): R50.9 - Fever, unspecified Status: Acute 70 year old women with history of pancreatic cancer currently receiving chemotherapy with leukopenia, fever. Neutropenic fever. Continue Cefepime, consult oncology, Dr. Cifuentes. Tylenol for fevers. Subtherapeutic INR. Stopped Warfarin around 12/12 for biopsy and did not resume. Will restart today and follow PT/INR Afib. Stable heart rate. Warfarin. Hyponatremia. Chronic. Follow BMP. HTN. Stable, Losartan. CHF. No overt failure noted. COPD. Albuterol as needed. Diabetes. Sliding scale, ADA diet. DVT prophylaxis with warfarin Discussed with Dr. Gallegos Full code
[2020-12-17] MEDS: Morphine Sulfate ER 30 MG TABLET.ER PO (18:18)
[2020-12-17 20:23] LABS: Glucose, Whole Blood 279 mg/dL (60-115)
[2020-12-17] MEDS: Gabapentin 100 MG CAPSULE 300 MG PO (20:33)
[2020-12-17] MEDS: Montelukast Sodium 10 MG TABLET PO (20:33)
[2020-12-17] MEDS: cefEPime HCl 1 GM in 0.9 % Sodium Chloride 50 ML IV (20:33)
[2020-12-17] MEDS: Warfarin Sodium 4 MG TABLET PO (20:33)
[2020-12-17] MEDS: ALPRAZolam 0.25 MG TABLET PO (20:33)
[2020-12-17] MEDS: metFORMIN HCl ER 500 MG TAB.ER.24H PO (20:33)
[2020-12-17] MEDS: Calcium + Vitamin D 250 MG TABLET 500 MG PO (20:33)
[2020-12-17] MEDS: 0.9 % Sodium Chloride Flush 3 ML SYRINGE IVFLUSH (20:34)
[2020-12-18] VITALS (9 sets, daily range): BP systolic 91–167; BP diastolic 37–85; PULSE 71–92; RESP 18–24; TEMP 36.8–39.6; O2SAT 84–97
--- NOTE | 2020-12-18 | XR_ITS ---
EXAMINATION: XR CHEST CLINICAL INFORMATION: Hypoxia. Covid. COMPARISON: Chest x-ray 12/17/2020 TECHNIQUE: Frontal view of the chest was obtained. 4:50 PM FINDINGS: Lung volume is low. Heart size is enlarged. No change in position of pacemaker leads in the heart. No acute abnormality. No pulmonary vascular congestion. No focal consolidation, no pleural effusion or pneumothorax. Hiatal hernia again noted. XR/XR chest 1V IMPRESSION: No acute abnormality of the chest.
[2020-12-18] MEDS: cefEPime HCl 1 GM in 0.9 % Sodium Chloride 50 ML IV ×3 (02:20→17:01)
[2020-12-18] MEDS: oxyCODONE HCl Immed Release 5 MG TABLET PO (03:18)
[2020-12-18 06:55] LABS: Prothrombin Time 12.4 SEC (10.8-13.0)
[2020-12-18 07:04] LABS: Eosinophils Absolute Auto 0.1 X10*3/uL (0.0-0.4); Eosinophils Percent Auto 3.1 % (0-4); Hematocrit 36.6 % (37-47); Hemoglobin 11.9 g/dl (12.0-16.0); Imm Gran Abs Auto 0.01 X10*3/uL (0.00-0.03); Imm Gran Pct Auto 0.5 % (0.0-0.4); Lymphocytes Absolute Auto 0.5 X10*3/uL (1.2-4.9); Lymphocytes Percent Auto 25.8 % (20-40); MANUAL DIFF FLAG SCAN; Mean Corpuscular HGB Conc 32.5 g/dl (31.0-35.0); Mean Corpuscular Hemoglobin 28.9 pg (27.0-33.0); Mean Corpuscular Volume 88.8 fL (80-98); Mean Platelet Volume 11.1 fL (9.4-12.3); Monocytes Absolute Auto 0.1 X10*3/uL (0.1-1.2); Monocytes Percent Auto 7.2 % (2-11); Neutrophils Absolute Auto 1.2 X10*3/uL (2.0-8.3); Neutrophils Percent Auto 63.4 % (45-73); Red Blood Count 4.12 X10*6/uL (4.20-5.50); Red Cell Distribution Width 12.3 % (11.0-16.0); SCAN SMEAR FLAG 1
[2020-12-18 07:05] LABS: Platelet Count 73 X10*3/uL (160-400); White Blood Count 1.9 X10*3/uL (4.8-10.8)
[2020-12-18 07:09] LABS: Anion Gap 14 (12-20); Blood Urea Nitrogen 11 mg/dL (9-16); Calcium 8.4 mg/dL (8.4-10.2); Carbon Dioxide 28 mmol/L (22-29); Chloride 96 mmol/L (96-108); Creatinine Clr Calc Pharmacy 56.4; Estimated Glomerular Filt Rate > 60; Glucose Random 145 mg/dL (60-115); Potassium 4.6 mmol/l (3.3-5.1); Sodium 133 mmol/L (135-145)
[2020-12-18 07:39] LABS: SLIDE REVIEW VERIFIED
[2020-12-18] MEDS: metFORMIN HCl ER 500 MG TAB.ER.24H PO (07:40)
[2020-12-18] MEDS: Calcium + Vitamin D 250 MG TABLET 500 MG PO (07:41)
[2020-12-18] MEDS: Ferrous Sulfate 324 MG TABLET.DR PO (07:41)
[2020-12-18] MEDS: Aspirin 81 MG TAB.CHEW PO (07:41)
[2020-12-18] MEDS: Atorvastatin Calcium 40 MG TABLET PO (07:41)
[2020-12-18] MEDS: carBAMazepine 200 MG TABLET PO (07:41)
[2020-12-18] MEDS: Losartan Potassium 25 MG TABLET PO (07:42)
[2020-12-18] MEDS: Omeprazole 40 MG CAPSULE.DR PO (07:42)
[2020-12-18] MEDS: ALPRAZolam 0.25 MG TABLET PO (07:42)
[2020-12-18] MEDS: Gabapentin 100 MG CAPSULE 300 MG PO (07:42)
[2020-12-18] MEDS: Metoprolol Succinate ER 100 MG TAB.ER.24H 200 MG PO (07:43)
[2020-12-18] MEDS: Amiodarone HCL 200 MG TABLET PO (07:43)
[2020-12-18] MEDS: Morphine Sulfate ER 30 MG TABLET.ER PO (07:54)
[2020-12-18] MEDS: 0.9 % Sodium Chloride Flush 3 ML SYRINGE IVFLUSH ×2 (07:58→16:05)
[2020-12-18 08:08] LABS: Glucose, Whole Blood 167 mg/dL (60-115)
[2020-12-18] MEDS: Insulin Lispro 100 UNIT/ML 3 ML VIAL SUBCUT (11:26)
[2020-12-18 11:44] LABS: Glucose, Whole Blood 163 mg/dL (60-115)
--- NOTE | 2020-12-18 13:18 | HO.PM.IMPN ---
Subjective Subjective Date of Service: 12/18/20 Interval History: seen and examined feels tired denies sob ROS General - no fevers or chills Cardiovascular - no chest pain Respiratory - no shortness of breath or cough Abdominal- no abdominal pain, nausea, vomiting, diarrhea Physical Exam Vital Signs: Vital Signs: Last Vital Signs Temp 98.3 F 12/18/20 11:18 Pulse 78 12/18/20 11:18 Resp 18 12/18/20 11:18 BP 138/62 12/18/20 11:18 Pulse Ox 93 12/18/20 13:17 Body Mass Index 26.5 Const: Other: General - no acute distress, appears comfortable Cardiovascular - regular rate and rhythm, S1-S2 Lungs - normal respiratory effort, clear to auscultation bilaterally, no wheezing Abdomen - soft, nontender, no rebound or guarding Extremities - no edema bilaterally Neuro - awake and alert, no focal deficits Objective Data Current Medications Generic Name Dose Route Start Last Admin Trade Name Freq PRN Reason Stop Dose Admin Acetaminophen 650 mg 12/17/20 17:02 Acetaminophen 325 Mg Tablet PO Q6H PRN Pain, Mild (Pain Scale 1-3) Albuterol Sulfate 2 puff 12/17/20 17:02 Albuterol Sulfate 90 Mcg 8 Gm Inhaler INHALE QID PRN for wheezing Alprazolam 0.25 mg 12/17/20 21:00 12/18/20 07:42 Alprazolam 0.25 Mg Tablet PO 0.25 mg BID ERWIN Administration Amiodarone HCl 200 mg 12/18/20 09:00 12/18/20 07:43 Amiodarone Hcl 200 Mg Tablet PO 200 mg DAILY ERWIN Administration Aspirin 81 mg 12/18/20 09:00 12/18/20 07:41 Aspirin 81 Mg Tab.Chew PO 81 mg DAILY ERWIN Administration Atorvastatin Calcium 40 mg 12/18/20 09:00 12/18/20 07:41 Atorvastatin Calcium 40 Mg Tablet PO 40 mg DAILY ERWIN Administration Calcium Carbonate/Cholecalciferol 500 mg 12/17/20 21:00 12/18/20 07:41 Calcium + Vitamin D 250 Mg Tablet PO 500 mg BID ERWIN Administration Carbamazepine 200 mg 12/18/20 09:00 12/18/20 07:41 Carbamazepine 200 Mg Tablet PO 200 mg DAILY ERWIN Administration Ferrous Sulfate 324 mg 12/18/20 09:00 12/18/20 07:41 Ferrous Sulfate 324 Mg Tablet. PO 324 mg DAILY ERWIN Administration Gabapentin 300 mg 12/17/20 21:00 12/18/20 07:42 Gabapentin 100 Mg Capsule PO 300 mg BID ERWIN Administration Cefepime HCl 1 gm/ Sodium 50 mls @ 100 mls/hr 12/17/20 17:02 12/18/20 10:30 Chloride IV Infused Q8H ERWIN Infusion Insulin Human Lispro 0 unit 12/17/20 21:00 12/18/20 11:26 Insulin Lispro 100 Unit/Ml 3 Ml Vial SUBCUT 2 unit QIDACHS ERWIN Administration Protocol Losartan Potassium 25 mg 12/18/20 09:00 12/18/20 07:42 Losartan Potassium 25 Mg Tablet PO 25 mg DAILY ERWIN Administration Protocol Metformin HCl 500 mg 12/17/20 21:00 12/18/20 07:40 Metformin Hcl Er 500 Mg Tab.Er.24h PO 500 mg BID ERWIN Administration Metoprolol Succinate 200 mg 12/18/20 09:00 12/18/20 07:43 Metoprolol Succinate Er 100 Mg Tab.Er.24h PO 200 mg DAILY ERWIN Administration Protocol Montelukast Sodium 10 mg 12/17/20 21:00 12/17/20 20:33 Montelukast Sodium 10 Mg Tablet PO 10 mg BEDTIME ERWIN Administration Morphine Sulfate 30 mg 12/17/20 17:02 12/18/20 07:54 Morphine Sulfate Er 30 Mg Tablet.Er PO 30 mg Q12H ERWIN Administration Omeprazole 40 mg 12/18/20 09:00 12/18/20 07:42 Omeprazole 40 Mg Capsule. PO 40 mg DAILY ERWIN Administration Ondansetron HCl 4 mg 12/17/20 17:02 Ondansetron Hcl 4 Mg/2 Ml Vial IVPUSH Q8H PRN Nausea and Vomiting Oxycodone HCl 5 mg 12/17/20 17:02 12/18/20 03:18 Oxycodone Hcl Immed Release 5 Mg Tablet PO 5 mg Q6H PRN Administration Breakthrough Pain, Moderate Pharmacy Consult 1 each 12/17/20 10:07 Consult Rx Perform Med Rec MISCELLANE ONCE PRN Consult order Sodium Chloride 3 ml 12/18/20 00:00 12/18/20 07:58 0.9 % Sodium Chloride Flush 3 Ml Syringe IVFLUSH 3 ml QSHIFT ERWIN Administration Tiotropium [place] 1 puff 12/18/20 09:00 12/18/20 07:44 Tiotropium [place] 18 Mcg Cap.W.Dev INHALE Not Given DAILY [facility] Warfarin Sodium 4 mg 12/17/20 18:00 12/17/20 20:33 Warfarin Sodium 4 Mg Tablet PO 4 mg DAILY@1800 [facility] Administration Labs CBC & Chem 7: 12/18/20 05:23 12/18/20 05:23 Microbiology Microbiology Results: Microbiology 12/17/20 10:39 Blood - Venous Blood Culture - Preliminary No growth after 24 hours. 12/17/20 10:17 Blood - Venous Blood Culture - Preliminary Assessment and Plan (1) Neutropenia: Status: Acute (2) COVID-19: Status: Acute Assessment and Plan: This is a 70 yo F with a recently diagnosed Pancreatic Ca who presented to the hospital with weakness and fevers. She is admitted for further care 1. Neutropenic Fever cefepime blood cx negative thus far check ua 2. COVID 19 +test on 12/11/2020 no hypoxia 3. PAF currently in sinus continue amio, metoprolol, coumadin 4. CHF / COPD not in exacerbation continue baseline meds 5. HypoNa mild improved 6. DM metformin / sliding scale diabetic diet 7. HTN stable, continue current meds Full Code DVT pptx, coumadin
--- NOTE | 2020-12-18 14:14 | MHC.CM.PN ---
CM spoke with son HCP Benedicto [phone] by phone r/t patient is +COVID. Son reports patient lives home alone, amb with a walker and has 3 hrs daily [employer] with [facility]. Patient does have a HCP and a copy is on file. Discussed discharge plan, home with resumption of [employer] services. Son also states she might be going to live with him. Son will provide transportation. CM will continue to follow for discharge needs.
[2020-12-18] MEDS: Acetaminophen 325 MG TABLET 650 MG PO (14:37)
[2020-12-18 14:49] LABS: Glucose Urine UA NEG (NEG); Leukocyte Esterase Urine NEG (NEG); Nitrite Urine NEG (NEG); Specific Gravity - Urine >= 1.030 (1.005-1.025); Urine Blood NEG (NEG); Urine Ketones NEG (NEG); Urine Protein TRACE MG/DL (NEG-TRACE)
[2020-12-18 14:50] LABS: Appearance Urine HAZY; Color Urine YELLOW
--- NOTE | 2020-12-18 15:23 | PC.NURSE ---
ORAL TEMP OF 103.[address] HAM. PT GIVEN TYLENOL. [facility] FOR U/A C&S.
[2020-12-18 15:39] LABS: Glucose, Whole Blood 108 mg/dL (60-115)
[2020-12-18] MEDS: Lactated Ringers 1,000 ML 999 ML IVCONT (16:25)
--- NOTE | 2020-12-18 16:34 | P.CNID_ITS ---
History of Present Illness Data of Consult Service Date: 12/18/20 Requesting physician: Abdoul Johnson Primary Care Provider: Malika Mayer MD [facility] Reason for consult: shortness of breath She presents to hospital with shortness of breath and cough She has just started chemotherapy for pancreatic cancer and diagnosed with COVID within last week [facility] Past Medical History Medical History Anxiety and depression Biventricular ICD (implantable cardioverter-defibrillator) in place Cardiomyopathy Congestive heart failure COPD (chronic obstructive pulmonary disease) Coronary artery disease Current use of anticoagulant therapy CVA (cerebral vascular accident) Diverticulitis Esophageal hernia GERD (gastroesophageal reflux disease) History of renal calculi HTN (hypertension) Hypercholesterolemia Hyponatremia Osteopenia Type 2 diabetes mellitus with hyperglycemia Umbilical hernia Family History Family History Father Medical history unknown Mother Diabetes Hypertension Family history: reviewed and not pertinent Surgical History Surgical History History of hemicolectomy History of incisional hernia repair History of pacemaker Social History Social History Household Members: Family Housing: House Do you presently have visiting nurse or other home services: No Alcohol intake: never Smoking Status: Never smoker Smoked in Last 30 Days: No Use of substances other than those prescribed or required for medical reasons: No Currently Displaying Signs/Symptoms of Drug Intoxication Withdrawal: No Have you been hit, kicked, punched, or otherwise hurt by someone within the past year? If so, by whom?: No Do you feel safe in your current relationship?: No Current Relationship Is there a partner from a previous relationship who is making you feel unsafe now?: No Are you made to feel afraid or neglected: No Advance Directives: No Advance Directives Information Provided: No Do you have thoughts of harming others: None Do you have a plan to hurt others: No Plan Recently lost weight without trying: No service: No Current occupational status: retired Meds Allergies Allergy/AdvReac Type Severity Reaction Status Date / Time No Known Allergies Allergy Verified 11/05/20 06:34 Home Medications Medication Instructions Recorded Confirmed Type aspirin 81 mg PO DAILY 10/30/20 12/17/20 History calcium carbonate-vitamin D3 1 tab PO BID 10/30/20 12/17/20 History carbamazepine 200 mg PO DAILY 10/30/20 12/17/20 History gabapentin 300 mg PO BID 10/30/20 12/17/20 History metoprolol succinate 200 mg PO DAILY 10/30/20 12/17/20 History omeprazole 40 mg PO DAILY 10/30/20 12/17/20 History budesonide-formoterol HFA 160 2 puff INHALATION BID 11/19/20 12/17/20 History mcg-4.5 mcg/actuation aerosol inhaler warfarin 2 mg tablet 2 mg PO DAILY 11/19/20 12/17/20 History blood sugar diagnostic #10 ea 11/28/20 11/28/20 History amiodarone 200 mg tablet 200 mg PO DAILY 11/29/20 12/17/20 History ondansetron HCl [Zofran] 4 mg PO Q8H 12/17/20 12/17/20 History warfarin 1 tab PO DAILY 12/17/20 History Physical Exam Vital Signs: Vital Signs: Last Vital Signs Temp 99.3 F 12/18/20 15:47 Pulse 75 12/18/20 15:47 Resp 24 H 12/18/20 15:47 BP 91/47 L 12/18/20 15:47 Pulse Ox 94 12/18/20 16:01 Body Mass Index 26.5 Const: General: cooperative Orientation/consciousness: patient oriented x3 HENMT: Head: Yes normal to inspection Mouth: Normal oral and palatal mucosa present Eyes: General: appearance normal, both eyes and all related structures Resp: Effort & Inspection: decreased respiratory effort Cardio: Rate: regular rate Rhythm: regular rhythm GI: Palpation (GI): Soft to palpation and nontender : General: Yes no CVA tenderness Back/Spine/Pelvis: Back: no CVA tenderness Skin: General skin exam: no rashes or lesions noted Neuro: General: patient oriented x3 Assessment and Plan (1) COVID-19: Problem details: She has recent diagnosis and oxygen demands of 5 liters She has cancer diagnosed recently Status: Acute Dexamethasone Remdesivir Oxygen support (2) Neutropenia: Qualifiers: Neutropenia type: secondary to cancer chemotherapy Qualified Code(s): D70.1 - Agranulocytosis secondary to cancer chemotherapy; T45.1X5A - Adverse effect of antineoplastic and immunosuppressive drugs, initial encounter Problem details: Concern over opportunistic infection Status: Acute May give Cefepime and Vancomycin Check nares MRSA,stop Vancomycin if negative Give Doxycycline if not improving Results Labs CBC & Chem 7: 12/18/20 05:23 12/18/20 05:23 Labs: Short CBC 12/17/20 12/18/20 Range/Units 10:17 05:23 WBC 1.9 L (4.8-10.8) X10*3/uL Hgb 11.9 L (12.0-16.0) g/dl Hct 36.6 L (37-47) % Plt Count 73 L (160-400) X10*3/uL AST 28 D (5-31) U/L ALT 34 H (0-31) U/L BMP 12/18/20 05:23 Sodium 133 L Potassium 4.6 Chloride 96 Carbon Dioxide 28 BUN 11 Creatinine 0.76 Calcium 8.4 Urine 12/18/20 Range/Units 14:27 Urine Color YELLOW Urine Appearance HAZY Urine pH 6.0 (5.0-8.0) Ur Specific [place] >= 1.030 H (1.005-1.025) Urine Protein TRACE (NEG-TRACE) MG/DL Urine Glucose (UA) NEG (NEG) MG/DL Microbiology Microbiology Results: Microbiology 12/17/20 10:39 Blood - Venous Blood Culture - Preliminary No growth after 24 hours. 12/17/20 10:17 Blood - Venous Blood Culture - Preliminary
[2020-12-18] MEDS: Warfarin Sodium 4 MG TABLET PO (18:23)
[2020-12-18] MEDS: Lactated Ringers 1,000 ML 100 ML IVCONT (18:25)
[2020-12-18] MEDS: Remdesivir 200 MG in 0.9 % Sodium Chloride 210 ML 105 MG IV (19:18)
[2020-12-18 20:34] LABS: Glucose, Whole Blood 122 mg/dL (60-115)
[2020-12-18] MEDS: Montelukast Sodium 10 MG TABLET PO (21:12)
--- NOTE | 2020-12-18 23:52 | PC.NURSE ---
note for 3p to 11p : Oxygen saturation 84% on room air. Cannula was placed at 5l and than to 4l , Sat 94%-96%. Systolic Blood pressure at 90-100, fluids bolus LR 1 liter IV infused, started on continuous LR at 100 ml/hr. Patient alert to person only, mostly sleeping,easily arousable. Dr Johnson ordered cxray, blood cultures, nasal MRSA screen, Vanco, Remdesivir. Pt didn't urinate since 14:30. Bladder scanned for 292 ml, Dr Garcia was notified , st cath done for 275 ml
[2020-12-19] VITALS: BP 119/56; PULSE 70; RESP 20; TEMP 37.8; O2SAT 95
[2020-12-19] MEDS: cefEPime HCl 1 GM in 0.9 % Sodium Chloride 50 ML IV ×3 (00:11→16:59)
[2020-12-19] MEDS: 0.9 % Sodium Chloride Flush 3 ML SYRINGE IVFLUSH ×3 (00:11→23:08)
[2020-12-19 04:00] VITALS: BP 134/63; PULSE 71; RESP 20; TEMP 36.5; O2SAT 97
[2020-12-19] MEDS: Lactated Ringers 1,000 ML 100 ML IVCONT (05:15)
--- NOTE | 2020-12-19 06:17 | PC.NURSE ---
Addendum entered by Bev Metcalf RN 12/19/20 06:49: New order for florez cath placement, 16f florez placed at 0648 with yellow urine output, secured in place to right leg. Original Note: Patient was DTV by 0430, coming onto shift at 0500 patient was not incontinent and was unable to urinate on bedpan, bladder scan preformed at 0615 and 550ml was total in bladder, notified, will update.
[2020-12-19 06:40] LABS: Hematocrit 32.2 % (37-47); Mean Corpuscular Volume 88.5 fL (80-98); Mean Platelet Volume 11.2 fL (9.4-12.3); PLT CLUMP 1; Red Blood Count 3.64 X10*6/uL (4.20-5.50)
[2020-12-19 06:42] LABS: Hemoglobin 10.4 g/dl (12.0-16.0); Mean Corpuscular HGB Conc 32.3 g/dl (31.0-35.0); Mean Corpuscular Hemoglobin 28.6 pg (27.0-33.0); Red Cell Distribution Width 12.2 % (11.0-16.0)
[2020-12-19 07:07] LABS: Alanine Aminotransferase 21 U/L (0-31); Alkaline Phosphatase 37 U/L (39-117); Anion Gap 15 (12-20); Aspartate Amino Transferase 27 U/L (5-31); Bilirubin Direct 0.2 mg/dL (0.0-0.5); Bilirubin Total 0.5 mg/dL (0.0-1.0); Blood Urea Nitrogen 11 mg/dL (9-16); C Reactive Protein 14.89 mg/dL (< or = 0.50); Carbon Dioxide 22 mmol/L (22-29); Chloride 98 mmol/L (96-108); Creatinine Clr Calc Pharmacy 69.3; Estimated Glomerular Filt Rate > 60; Glucose Random 101 mg/dL (60-115); Potassium 3.7 mmol/l (3.3-5.1); Sodium 131 mmol/L (135-145)
[2020-12-19 07:18] LABS: Calcium 7.8 mg/dL (8.4-10.2); Total Protein 5.3 g/dL (6.5-8.0)
[2020-12-19 07:20] LABS: Platelet Count 45 X10*3/uL (160-400); White Blood Count 2.3 X10*3/uL (4.8-10.8)
[2020-12-19 07:24] VITALS: BP 130/63; PULSE 70; RESP 16; TEMP 37.9; O2SAT 97
[2020-12-19 07:38] LABS: Glucose, Whole Blood 109 mg/dL (60-115)
[2020-12-19 08:20] LABS: MRSA Nasal PCR NEGATIVE (Negative); SA Nasal PCR POSITIVE (Negative)
[2020-12-19] MEDS: Omeprazole 40 MG CAPSULE.DR PO (08:37)
[2020-12-19] MEDS: carBAMazepine 200 MG TABLET PO (08:37)
[2020-12-19] MEDS: Losartan Potassium 25 MG TABLET PO (08:37)
[2020-12-19] MEDS: Aspirin 81 MG TAB.CHEW PO (08:37)
[2020-12-19] MEDS: Morphine Sulfate ER 30 MG TABLET.ER PO ×2 (08:37→21:23)
[2020-12-19] MEDS: Acetaminophen 325 MG TABLET 650 MG PO (08:37)
[2020-12-19] MEDS: Metoprolol Succinate ER 100 MG TAB.ER.24H 200 MG PO (08:37)
[2020-12-19] MEDS: ALPRAZolam 0.25 MG TABLET PO ×2 (08:37→21:23)
[2020-12-19] MEDS: Calcium + Vitamin D 250 MG TABLET 500 MG PO ×2 (08:38→21:23)
[2020-12-19] MEDS: Atorvastatin Calcium 40 MG TABLET PO (08:38)
[2020-12-19] MEDS: Ferrous Sulfate 324 MG TABLET.DR PO (08:38)
[2020-12-19] MEDS: Gabapentin 100 MG CAPSULE 300 MG PO ×2 (08:38→21:23)
[2020-12-19] MEDS: Amiodarone HCL 200 MG TABLET PO (08:38)
--- NOTE | 2020-12-19 09:02 | P.PNIM_ITS ---
Subjective Subjective Date of Service: 12/19/20 Interval History: seen and examined reports feeling tired ROS General - no fevers or chills, +fatigue Cardiovascular - no chest pain Respiratory - no shortness of breath or cough Abdominal- no abdominal pain, nausea, vomiting, diarrhea Physical Exam Vital Signs: Vital Signs: Last Vital Signs Temp 100.3 F 12/19/20 07:24 Pulse 70 12/19/20 07:24 Resp 16 12/19/20 07:24 BP 130/63 12/19/20 07:24 Pulse Ox 97 12/19/20 07:24 Body Mass Index 26.5 Const: Other: General - no acute distress, appears comfortable Cardiovascular - regular rate and rhythm, S1-S2 Lungs - normal respiratory effort, clear to auscultation bilaterally, no wheezing Abdomen - soft, nontender, no rebound or guarding Extremities - no edema bilaterally Neuro - awake and alert, no focal deficits Objective Data Current Medications Generic Name Dose Route Start Last Admin Trade Name Freq PRN Reason Stop Dose Admin Acetaminophen 650 mg 12/17/20 17:02 12/19/20 08:37 Acetaminophen 325 Mg Tablet PO 650 mg Q6H PRN Administration Pain, Mild (Pain Scale 1-3) Albuterol Sulfate 2 puff 12/17/20 17:02 Albuterol Sulfate 90 Mcg 8 Gm Inhaler INHALE QID PRN for wheezing Alprazolam 0.25 mg 12/17/20 21:00 12/19/20 08:37 Alprazolam 0.25 Mg Tablet PO 0.25 mg BID ERWIN Administration Amiodarone HCl 200 mg 12/18/20 09:00 12/19/20 08:38 Amiodarone Hcl 200 Mg Tablet PO 200 mg DAILY ERWIN Administration Aspirin 81 mg 12/18/20 09:00 12/19/20 08:37 Aspirin 81 Mg Tab.Chew PO 81 mg DAILY ERWIN Administration Atorvastatin Calcium 40 mg 12/18/20 09:00 12/19/20 08:38 Atorvastatin Calcium 40 Mg Tablet PO 40 mg DAILY ERWIN Administration Calcium Carbonate/Cholecalciferol 500 mg 12/17/20 21:00 12/19/20 08:38 Calcium + Vitamin D 250 Mg Tablet PO 500 mg BID ERWIN Administration Carbamazepine 200 mg 12/18/20 09:00 12/19/20 08:37 Carbamazepine 200 Mg Tablet PO 200 mg DAILY ERWIN Administration Ferrous Sulfate 324 mg 12/18/20 09:00 12/19/20 08:38 Ferrous Sulfate 324 Mg Tablet. PO 324 mg DAILY ERWIN Administration Gabapentin 300 mg 12/17/20 21:00 12/19/20 08:38 Gabapentin 100 Mg Capsule PO 300 mg BID ERWIN Administration Cefepime HCl 1 gm/ Sodium 50 mls @ 100 mls/hr 12/17/20 17:02 12/19/20 08:39 Chloride IV 100 mls/hr Q8H ERWIN Administration Vancomycin HCl 750 mg/ 275 mls @ 183.333 mls/hr 12/18/20 17:00 12/18/20 19:13 Vancomycin HCl 500 mg/ Sodium IV Infused Chloride Q24H ERWIN Infusion Remdesivir 100 mg/ Sodium 230 mls @ 115 mls/hr 12/19/20 19:00 Chloride IV 12/22/20 20:59 Q24H ERWIN Lactated Ringer's 1,000 mls @ 100 mls/hr 12/18/20 18:15 12/19/20 05:15 Lr IVCONT 12/19/20 14:14 100 mls/hr .Q10H ERWIN Administration Insulin Human Lispro 0 unit 12/17/20 21:00 12/19/20 08:37 Insulin Lispro 100 Unit/Ml 3 Ml Vial SUBCUT Not Given QIDACHS [facility] Protocol Losartan Potassium 25 mg 12/18/20 09:00 12/19/20 08:37 Losartan Potassium 25 Mg Tablet PO 25 mg DAILY ERWIN Administration Protocol Metoprolol Succinate 200 mg 12/18/20 09:00 12/19/20 08:37 Metoprolol Succinate Er 100 Mg Tab.Er.24h PO 200 mg DAILY ERWIN Administration Protocol Montelukast Sodium 10 mg 12/17/20 21:00 12/18/20 21:12 Montelukast Sodium 10 Mg Tablet PO 10 mg BEDTIME ERWIN Administration Morphine Sulfate 30 mg 12/19/20 08:00 12/19/20 08:37 Morphine Sulfate Er 30 Mg Tablet.Er PO 30 mg Q12H ERWIN Administration Omeprazole 40 mg 12/18/20 09:00 12/19/20 08:37 Omeprazole 40 Mg Capsule. PO 40 mg DAILY ERWIN Administration Ondansetron HCl 4 mg 12/17/20 17:02 Ondansetron Hcl 4 Mg/2 Ml Vial IVPUSH Q8H PRN Nausea and Vomiting Oxycodone HCl 5 mg 12/17/20 17:02 12/18/20 03:18 Oxycodone Hcl Immed Release 5 Mg Tablet PO 5 mg Q6H PRN Administration Breakthrough Pain, Moderate Pharmacy Consult 1 each 12/17/20 10:07 Consult Rx Perform Med Rec MISCELLANE ONCE PRN Consult order Pharmacy Consult 1 each 12/18/20 16:15 Consult Rx Vancomycin Dosing MISCELLANE DAILY PRN Consult order Sodium Chloride 3 ml 12/18/20 00:00 12/19/20 08:37 0.9 % Sodium Chloride Flush 3 Ml Syringe IVFLUSH Not Given QSHIFT [facility] Tiotropium [place] 1 puff 12/18/20 09:00 12/19/20 08:19 Tiotropium [place] 18 Mcg Cap.W.Dev INHALE Not Given DAILY [facility] Warfarin Sodium 4 mg 12/17/20 18:00 12/18/20 18:23 Warfarin Sodium 4 Mg Tablet PO 4 mg DAILY@1800 ERWIN Administration Labs CBC & Chem 7: 12/19/20 05:26 12/19/20 05:26 Microbiology Microbiology Results: Microbiology 12/17/20 10:17 Blood - Venous Blood Culture - Final Coag negative Staphylococcus 12/17/20 10:39 Blood - Venous Blood Culture - Preliminary No growth after 24 hours. Assessment and Plan (1) Neutropenia: Status: Acute (2) COVID-19: Status: Acute Assessment and Plan: This is a 70 yo F with a recently diagnosed Pancreatic Ca who presented to the hospital with weakness and fevers. She is admitted for further care 1. Neutropenic Fever persistent low grade temp admission blood cx negative @ 48 hours (coag neg staph in 1/2 bottles -- contaminant); repeat cx from 12/18/2019 are negative so far continue cefepime + vancomcyin; Nasal MRSA cultures sent ID input appreciated 2. COVID 19 causing respiratory failure with hypoxia +test on 12/11/2020 decadron - day 2 remdesivir - Day 2 ID input appreciated 3. Pancytopenia suspect from recent chemo monitor 4. PAF currently in sinus continue amio, metoprolol, coumadin 5. CHF / COPD not in exacerbation continue baseline meds 6. HypoNa mild improved 7. DM sliding scale diabetic diet 8. HTN stable, continue current meds Full Code DVT pptx, coumadin
[2020-12-19 09:13] LABS: INTERNATIONAL NORM RATIO 1.3 (0.9-1.1); Prothrombin Time 15.5 SEC (10.8-13.0)
[2020-12-19] MEDS: dexAMETHasone sod phosphate 4 MG/ML VIAL 6 MG IVPUSH (09:20)
[2020-12-19 10:51] VITALS: BP 93/46; PULSE 61; RESP 18; TEMP 36.8; O2SAT 95
[2020-12-19 11:24] LABS: Glucose, Whole Blood 143 mg/dL (60-115)
[2020-12-19 15:33] VITALS: BP 119/56; PULSE 60; RESP 18; TEMP 36.4; O2SAT 95
[2020-12-19 16:19] LABS: Glucose, Whole Blood 186 mg/dL (60-115)
[2020-12-19] MEDS: Insulin Lispro 100 UNIT/ML 3 ML VIAL SUBCUT ×2 (17:00→21:23)
[2020-12-19] MEDS: Warfarin Sodium 4 MG TABLET PO (18:00)
[2020-12-19 18:58] VITALS: BP 109/61; PULSE 62; RESP 18; TEMP 36.5; O2SAT 97
[2020-12-19] MEDS: Remdesivir 100 MG in 0.9 % Sodium Chloride 230 ML 115 MG IV (20:09)
[2020-12-19 20:21] LABS: Glucose, Whole Blood 242 mg/dL (60-115)
[2020-12-19 20:33] LABS: Glucose, Whole Blood 195 mg/dL (60-115)
[2020-12-19] MEDS: Montelukast Sodium 10 MG TABLET PO (21:33)
[2020-12-20] VITALS: BP 124/58; PULSE 60; RESP 18; TEMP 36.7; O2SAT 97
[2020-12-20] MEDS: cefEPime HCl 1 GM in 0.9 % Sodium Chloride 50 ML IV ×3 (01:35→17:36)
[2020-12-20 04:00] VITALS: BP 151/68; PULSE 60; RESP 18; TEMP 36.6; O2SAT 97
[2020-12-20 06:55] LABS: Hemoglobin 10.5 g/dl (12.0-16.0); PLT CLUMP 1
[2020-12-20 06:57] LABS: Hematocrit 32.3 % (37-47); Mean Corpuscular HGB Conc 32.5 g/dl (31.0-35.0); Mean Corpuscular Hemoglobin 28.5 pg (27.0-33.0); Mean Corpuscular Volume 87.5 fL (80-98); Mean Platelet Volume 11.5 fL (9.4-12.3); Red Blood Count 3.69 X10*6/uL (4.20-5.50)
[2020-12-20 07:00] LABS: Platelet Count 40 X10*3/uL (160-400); White Blood Count 1.3 X10*3/uL (4.8-10.8)
[2020-12-20] MEDS: 0.9 % Sodium Chloride Flush 3 ML SYRINGE IVFLUSH ×2 (07:11→17:36)
[2020-12-20] MEDS: oxyCODONE HCl Immed Release 5 MG TABLET PO ×2 (07:11→13:47)
[2020-12-20] MEDS: Morphine Sulfate ER 30 MG TABLET.ER PO ×2 (07:11→21:20)
[2020-12-20 07:14] LABS: Alanine Aminotransferase 25 U/L (0-31); Albumin Level 2.9 g/dL (3.5-5.0); Alkaline Phosphatase 39 U/L (39-117); Anion Gap 14 (12-20); Aspartate Amino Transferase 36 U/L (5-31); Bilirubin Direct 0.2 mg/dL (0.0-0.5); Bilirubin Total 0.4 mg/dL (0.0-1.0); Blood Urea Nitrogen 13 mg/dL (9-16); Calcium 7.9 mg/dL (8.4-10.2); Carbon Dioxide 25 mmol/L (22-29); Chloride 100 mmol/L (96-108); Creatinine Clr Calc Pharmacy 69.3; Estimated Glomerular Filt Rate > 60; Glucose Random 167 mg/dL (60-115); Potassium 3.7 mmol/l (3.3-5.1); Sodium 135 mmol/L (135-145); Total Protein 5.4 g/dL (6.5-8.0)
[2020-12-20 07:31] LABS: Imm Gran Abs Auto 0.01 X10*3/uL (0.00-0.03); Imm Gran Pct Auto 0.7 % (0.0-0.4); Lymphocytes Absolute Auto 0.4 X10*3/uL (1.2-4.9); Lymphocytes Percent Auto 26.7 % (20-40); MANUAL DIFF FLAG SCAN; Monocytes Absolute Auto 0.1 X10*3/uL (0.1-1.2); Monocytes Percent Auto 10.4 % (2-11); Neutrophils Absolute Auto 0.8 X10*3/uL (2.0-8.3); Neutrophils Percent Auto 62.2 % (45-73); SCAN SMEAR FLAG 1
[2020-12-20 08:00] VITALS: BP 160/72; PULSE 60; RESP 20; TEMP 36.6; O2SAT 98
[2020-12-20] MEDS: dexAMETHasone sod phosphate 4 MG/ML VIAL 6 MG IVPUSH (08:04)
[2020-12-20] MEDS: Gabapentin 100 MG CAPSULE 300 MG PO ×2 (08:05→21:19)
[2020-12-20] MEDS: Aspirin 81 MG TAB.CHEW PO (08:05)
[2020-12-20] MEDS: Amiodarone HCL 200 MG TABLET PO (08:05)
[2020-12-20] MEDS: Calcium + Vitamin D 250 MG TABLET 500 MG PO ×2 (08:05→21:20)
[2020-12-20] MEDS: Atorvastatin Calcium 40 MG TABLET PO (08:05)
[2020-12-20] MEDS: Losartan Potassium 25 MG TABLET PO (08:05)
[2020-12-20] MEDS: Ferrous Sulfate 324 MG TABLET.DR PO (08:05)
[2020-12-20] MEDS: carBAMazepine 200 MG TABLET PO (08:05)
[2020-12-20] MEDS: Metoprolol Succinate ER 100 MG TAB.ER.24H 200 MG PO (08:06)
[2020-12-20] MEDS: Omeprazole 40 MG CAPSULE.DR PO (08:06)
[2020-12-20] MEDS: ALPRAZolam 0.25 MG TABLET PO ×2 (08:06→21:20)
[2020-12-20 08:17] LABS: Glucose, Whole Blood 146 mg/dL (60-115)
[2020-12-20 08:48] LABS: INTERNATIONAL NORM RATIO 1.8 (0.9-1.1); Prothrombin Time 20.9 SEC (10.8-13.0)
[2020-12-20 08:58] LABS: SLIDE REVIEW VERIFIED
--- NOTE | 2020-12-20 10:22 | HO.PM.IMPN ---
Subjective Subjective Date of Service: 12/20/20 Interval History: seen and examined feels better, but still not great reports breathing is good ROS General - no fevers or chills, +fatigue Cardiovascular - no chest pain Respiratory - no shortness of breath or cough Abdominal- no abdominal pain, nausea, vomiting, diarrhea Physical Exam Vital Signs: Vital Signs: Last Vital Signs Temp 97.9 F 12/20/20 08:00 Pulse 60 12/20/20 08:00 Resp 20 12/20/20 08:00 BP 160/72 H 12/20/20 08:00 Pulse Ox 98 12/20/20 08:00 Body Mass Index 26.5 Const: Other: General - no acute distress, appears comfortable Cardiovascular - regular rate and rhythm, S1-S2 Lungs - normal respiratory effort, clear to auscultation bilaterally, no wheezing Abdomen - soft, nontender, no rebound or guarding Extremities - no edema bilaterally Neuro - awake and alert, no focal deficits Objective Data Current Medications Generic Name Dose Route Start Last Admin Trade Name Freq PRN Reason Stop Dose Admin Acetaminophen 650 mg 12/17/20 17:02 12/19/20 08:37 Acetaminophen 325 Mg Tablet PO 650 mg Q6H PRN Administration Pain, Mild (Pain Scale 1-3) Albuterol Sulfate 2 puff 12/17/20 17:02 Albuterol Sulfate 90 Mcg 8 Gm Inhaler INHALE QID PRN for wheezing Alprazolam 0.25 mg 12/17/20 21:00 12/20/20 08:06 Alprazolam 0.25 Mg Tablet PO 0.25 mg BID ERWIN Administration Amiodarone HCl 200 mg 12/18/20 09:00 12/20/20 08:05 Amiodarone Hcl 200 Mg Tablet PO 200 mg DAILY ERWIN Administration Aspirin 81 mg 12/18/20 09:00 12/20/20 08:05 Aspirin 81 Mg Tab.Chew PO 81 mg DAILY ERWIN Administration Atorvastatin Calcium 40 mg 12/18/20 09:00 12/20/20 08:05 Atorvastatin Calcium 40 Mg Tablet PO 40 mg DAILY ERWIN Administration Calcium Carbonate/Cholecalciferol 500 mg 12/17/20 21:00 12/20/20 08:05 Calcium + Vitamin D 250 Mg Tablet PO 500 mg BID ERWIN Administration Carbamazepine 200 mg 12/18/20 09:00 12/20/20 08:05 Carbamazepine 200 Mg Tablet PO 200 mg DAILY ERWIN Administration Dexamethasone Sodium Phosphate 6 mg 12/19/20 09:15 12/20/20 08:04 Dexamethasone Sod Phosphate 4 Mg/Ml Vial IVPUSH 12/28/20 09:01 6 mg DAILY ERWIN Administration Ferrous Sulfate 324 mg 12/18/20 09:00 12/20/20 08:05 Ferrous Sulfate 324 Mg Tablet. PO 324 mg DAILY ERWIN Administration Gabapentin 300 mg 12/17/20 21:00 12/20/20 08:05 Gabapentin 100 Mg Capsule PO 300 mg BID ERWIN Administration Cefepime HCl 1 gm/ Sodium 50 mls @ 100 mls/hr 12/17/20 17:02 12/20/20 09:04 Chloride IV Infused Q8H ERWIN Infusion Vancomycin HCl 750 mg/ 275 mls @ 183.333 mls/hr 12/18/20 17:00 12/19/20 20:21 Vancomycin HCl 500 mg/ Sodium IV Infused Chloride Q24H ERWIN Infusion Remdesivir 100 mg/ Sodium 230 mls @ 115 mls/hr 12/19/20 19:00 12/19/20 22:24 Chloride IV 12/22/20 20:59 Infused Q24H ERWIN Infusion Insulin Human Lispro 0 unit 12/17/20 21:00 12/20/20 07:55 Insulin Lispro 100 Unit/Ml 3 Ml Vial SUBCUT Not Given QIDACHS [facility] Protocol Losartan Potassium 25 mg 12/18/20 09:00 12/20/20 08:05 Losartan Potassium 25 Mg Tablet PO 25 mg DAILY ERWIN Administration Protocol Metoprolol Succinate 200 mg 12/18/20 09:00 12/20/20 08:06 Metoprolol Succinate Er 100 Mg Tab.Er.24h PO 200 mg DAILY ERWIN Administration Protocol Montelukast Sodium 10 mg 12/17/20 21:00 12/19/20 21:33 Montelukast Sodium 10 Mg Tablet PO 10 mg BEDTIME ERWIN Administration Morphine Sulfate 30 mg 12/19/20 08:00 12/20/20 07:11 Morphine Sulfate Er 30 Mg Tablet.Er PO 30 mg Q12H ERWIN Administration Omeprazole 40 mg 12/18/20 09:00 12/20/20 08:06 Omeprazole 40 Mg Capsule. PO 40 mg DAILY ERWIN Administration Ondansetron HCl 4 mg 12/17/20 17:02 Ondansetron Hcl 4 Mg/2 Ml Vial IVPUSH Q8H PRN Nausea and Vomiting Oxycodone HCl 5 mg 12/17/20 17:02 12/20/20 07:11 Oxycodone Hcl Immed Release 5 Mg Tablet PO 5 mg Q6H PRN Administration Breakthrough Pain, Moderate Pharmacy Consult 1 each 12/17/20 10:07 Consult Rx Perform Med Rec MISCELLANE ONCE PRN Consult order Pharmacy Consult 1 each 12/18/20 16:15 Consult Rx Vancomycin Dosing MISCELLANE DAILY PRN Consult order Sodium Chloride 3 ml 12/18/20 00:00 12/20/20 07:11 0.9 % Sodium Chloride Flush 3 Ml Syringe IVFLUSH 3 ml QSHIFT ERWIN Administration Tiotropium [place] 1 puff 12/20/20 09:40 Tiotropium [place] 18 Mcg Cap.W.Dev INHALE DAILY [facility] Warfarin Sodium 4 mg 12/17/20 18:00 12/19/20 18:00 Warfarin Sodium 4 Mg Tablet PO 4 mg DAILY@1800 [facility] Administration Labs CBC & Chem 7: 12/20/20 05:23 12/20/20 05:23 Microbiology Microbiology Results: Microbiology 12/18/20 16:24 Blood - Venous Blood Culture - Preliminary No growth after 24 hours. 12/18/20 16:24 Blood - Venous Blood Culture - Preliminary No growth after 24 hours. 12/17/20 10:39 Blood - Venous Blood Culture - Preliminary No growth after 48 hours. 12/17/20 10:17 Blood - Venous Blood Culture - Final Coag negative Staphylococcus Assessment and Plan (1) Neutropenia: Status: Acute (2) COVID-19: Status: Acute Assessment and Plan: This is a 70 yo F with a recently diagnosed Pancreatic Ca who presented to the hospital with weakness and fevers. She is admitted for further care 1. Neutropenic Fever Tmax last 24 hours: 98.3 blood cx negative to date admission blood cx negative @ 48 hours (coag neg staph in 1/2 bottles -- contaminant); repeat cx from 12/18/2019 are negative so far continue cefepime + vancomcyin; Nasal MRSA cultures postiive If repeat blood cx also negative -- will deescalate antibiotics ID input appreciated 2. COVID 19 causing respiratory failure with hypoxia +test on 12/11/2020 decadron - day 3/10 remdesivir - Day 4/ ID input appreciated [email or web address] 3. Pancytopenia suspect from recent chemo monitor 4. PAF currently in sinus continue amio, metoprolol, coumadin 5. CHF / COPD not in exacerbation continue baseline meds 6. HypoNa mild improved 7. DM sliding scale diabetic diet 8. HTN stable, continue current meds Full Code DVT pptx, coumadin
[2020-12-20 11:45] VITALS: BP 112/56; PULSE 61; RESP 20; TEMP 36.6; O2SAT 93
[2020-12-20 11:46] LABS: Glucose, Whole Blood 208 mg/dL (60-115)
[2020-12-20] MEDS: Tbo-Filgrastim 300 MCG/0.5 ML SYRINGE SUBCUT (11:59)
[2020-12-20] MEDS: Insulin Lispro 100 UNIT/ML 3 ML VIAL SUBCUT (11:59)
--- NOTE | 2020-12-20 14:06 | MHC.CM.PN ---
Patient continues to require 2 liters O2, IV Dexamethasone and IV Remdesivir for +COVID. Patient is also on IV Cefepime/Vanco for neutropenic fevers. WBC today is 1.3. Discharge plan is home with resumption of [employer] services. Aleksandr Diane will provide transportation. CM will continue to follow patient for discharge needs.
[2020-12-20 16:00] VITALS: BP 127/60; PULSE 64; RESP 16; TEMP 36.7; O2SAT 92
[2020-12-20 16:42] LABS: Vancomycin Trough < 3.0 mcg/mL (10.0-20.0)
[2020-12-20] MEDS: Warfarin Sodium 4 MG TABLET PO (17:36)
[2020-12-20] MEDS: vancomycin HCL 750 MG in 0.9 % Sodium Chloride 250 ML 265 MG IV (17:36)
[2020-12-20 20:00] VITALS: BP 137/65; PULSE 63; RESP 20; TEMP 36.9; O2SAT 94
[2020-12-20] MEDS: Remdesivir 100 MG in 0.9 % Sodium Chloride 230 ML 115 MG IV (21:19)
[2020-12-20] MEDS: Montelukast Sodium 10 MG TABLET PO (21:20)
[2020-12-20 21:24] LABS: Glucose, Whole Blood 147 mg/dL (60-115)
[2020-12-20 23:15] LABS: Glucose, Whole Blood 137 mg/dL (60-115)
[2020-12-21] VITALS (7 sets, daily range): BP systolic 103–147; BP diastolic 52–70; PULSE 60–63; RESP 18–20; TEMP 36.1–36.7; O2SAT 90–96
[2020-12-21] MEDS: 0.9 % Sodium Chloride Flush 3 ML SYRINGE IVFLUSH ×4 (01:15→20:33)
[2020-12-21] MEDS: cefEPime HCl 1 GM in 0.9 % Sodium Chloride 50 ML IV ×2 (02:50→08:39)
[2020-12-21] MEDS: vancomycin HCL 750 MG in 0.9 % Sodium Chloride 250 ML 265 MG IV (07:00)
[2020-12-21 07:18] LABS: Glucose, Whole Blood 78 mg/dL (60-115)
[2020-12-21 07:22] LABS: Hematocrit 30.4 % (37-47); Hemoglobin 10.3 g/dl (12.0-16.0); Mean Corpuscular HGB Conc 33.9 g/dl (31.0-35.0); Mean Corpuscular Hemoglobin 29.6 pg (27.0-33.0); Mean Corpuscular Volume 87.4 fL (80-98); Mean Platelet Volume 11.1 fL (9.4-12.3); Red Blood Count 3.48 X10*6/uL (4.20-5.50); Red Cell Distribution Width 12.3 % (11.0-16.0); White Blood Count 8.7 X10*3/uL (4.8-10.8)
[2020-12-21 07:25] LABS: Platelet Count 56 X10*3/uL (160-400)
[2020-12-21 07:51] LABS: Alanine Aminotransferase 39 U/L (0-31); Albumin Level 2.8 g/dL (3.5-5.0); Alkaline Phosphatase 47 U/L (39-117); Anion Gap 10 (12-20); Aspartate Amino Transferase 54 U/L (5-31); Bilirubin Direct 0.2 mg/dL (0.0-0.5); Bilirubin Total 0.2 mg/dL (0.0-1.0); Blood Urea Nitrogen 13 mg/dL (9-16); Calcium 7.6 mg/dL (8.4-10.2); Carbon Dioxide 28 mmol/L (22-29); Chloride 101 mmol/L (96-108); Creatinine Clr Calc Pharmacy 64.1; Estimated Glomerular Filt Rate > 60; Glucose Random 76 mg/dL (60-115); Sodium 135 mmol/L (135-145); Total Protein 4.9 g/dL (6.5-8.0)
[2020-12-21 08:24] LABS: Prothrombin Time 23.6 SEC (10.8-13.0)
[2020-12-21] MEDS: Metoprolol Succinate ER 100 MG TAB.ER.24H 200 MG PO (08:33)
[2020-12-21] MEDS: Ferrous Sulfate 324 MG TABLET.DR PO (08:35)
[2020-12-21] MEDS: ALPRAZolam 0.25 MG TABLET PO ×2 (08:35→20:31)
[2020-12-21] MEDS: Atorvastatin Calcium 40 MG TABLET PO (08:35)
[2020-12-21] MEDS: Losartan Potassium 25 MG TABLET PO (08:35)
[2020-12-21] MEDS: Omeprazole 40 MG CAPSULE.DR PO (08:35)
[2020-12-21] MEDS: carBAMazepine 200 MG TABLET PO (08:35)
[2020-12-21] MEDS: Gabapentin 100 MG CAPSULE 300 MG PO ×2 (08:36→20:31)
[2020-12-21] MEDS: Calcium + Vitamin D 250 MG TABLET 500 MG PO ×2 (08:36→20:31)
[2020-12-21] MEDS: Morphine Sulfate ER 30 MG TABLET.ER PO ×2 (08:36→20:30)
[2020-12-21] MEDS: Aspirin 81 MG TAB.CHEW PO (08:36)
[2020-12-21] MEDS: dexAMETHasone sod phosphate 4 MG/ML VIAL 6 MG IVPUSH (08:37)
[2020-12-21] MEDS: Amiodarone HCL 200 MG TABLET PO (08:45)
[2020-12-21 11:19] LABS: Glucose, Whole Blood 141 mg/dL (60-115)
--- NOTE | 2020-12-21 13:50 | P.PNIM_ITS ---
Subjective Subjective Date of Service: 12/21/20 Interval History: seen and examined reported being tired, doesnt feel ready for d/c home today ROS General - no fevers or chills, +fatigue Cardiovascular - no chest pain Respiratory - no shortness of breath or cough Abdominal- no abdominal pain, nausea, vomiting, diarrhea Physical Exam Vital Signs: Vital Signs: Last Vital Signs Temp 97 F 12/21/20 10:49 Pulse 60 12/21/20 10:49 Resp 18 12/21/20 10:49 BP 103/52 L 12/21/20 10:49 Pulse Ox 93 12/21/20 10:49 Body Mass Index 26.5 Const: Other: General - no acute distress, appears comfortable Cardiovascular - regular rate and rhythm, S1-S2 Lungs - normal respiratory effort, clear to auscultation bilaterally, no wheezing Abdomen - soft, nontender, no rebound or guarding Extremities - no edema bilaterally Neuro - awake and alert, no focal deficits Objective Data Current Medications Generic Name Dose Route Start Last Admin Trade Name Freq PRN Reason Stop Dose Admin Acetaminophen 650 mg 12/17/20 17:02 12/19/20 08:37 Acetaminophen 325 Mg Tablet PO 650 mg Q6H PRN Administration Pain, Mild (Pain Scale 1-3) Albuterol Sulfate 2 puff 12/17/20 17:02 Albuterol Sulfate 90 Mcg 8 Gm Inhaler INHALE QID PRN for wheezing Alprazolam 0.25 mg 12/17/20 21:00 12/21/20 08:35 Alprazolam 0.25 Mg Tablet PO 0.25 mg BID ERWIN Administration Amiodarone HCl 200 mg 12/18/20 09:00 12/21/20 08:45 Amiodarone Hcl 200 Mg Tablet PO 200 mg DAILY ERWIN Administration Aspirin 81 mg 12/18/20 09:00 12/21/20 08:36 Aspirin 81 Mg Tab.Chew PO 81 mg DAILY ERWIN Administration Atorvastatin Calcium 40 mg 12/18/20 09:00 12/21/20 08:35 Atorvastatin Calcium 40 Mg Tablet PO 40 mg DAILY ERWIN Administration Calcium Carbonate/Cholecalciferol 500 mg 12/17/20 21:00 12/21/20 08:36 Calcium + Vitamin D 250 Mg Tablet PO 500 mg BID ERWIN Administration Carbamazepine 200 mg 12/18/20 09:00 12/21/20 08:35 Carbamazepine 200 Mg Tablet PO 200 mg DAILY ERWIN Administration Dexamethasone Sodium Phosphate 6 mg 12/19/20 09:15 12/21/20 08:37 Dexamethasone Sod Phosphate 4 Mg/Ml Vial IVPUSH 12/28/20 09:01 6 mg DAILY ERWIN Administration Ferrous Sulfate 324 mg 12/18/20 09:00 12/21/20 08:35 Ferrous Sulfate 324 Mg Tablet. PO 324 mg DAILY ERWIN Administration Gabapentin 300 mg 12/17/20 21:00 12/21/20 08:36 Gabapentin 100 Mg Capsule PO 300 mg BID ERWIN Administration Remdesivir 100 mg/ Sodium 230 mls @ 115 mls/hr 12/19/20 19:00 12/20/20 23:22 Chloride IV 12/22/20 20:59 Infused Q24H ERWIN Infusion Vancomycin HCl 750 mg/ Sodium 265 mls @ 265 mls/hr 12/20/20 18:00 12/21/20 08:00 Chloride IV Infused Q12H ERWIN Infusion Insulin Human Lispro 0 unit 12/17/20 21:00 12/21/20 11:34 Insulin Lispro 100 Unit/Ml 3 Ml Vial SUBCUT Not Given QIDACHS [facility] Protocol Losartan Potassium 25 mg 12/18/20 09:00 12/21/20 08:35 Losartan Potassium 25 Mg Tablet PO 25 mg DAILY [facility] Administration Protocol Metoprolol Succinate 200 mg 12/18/20 09:00 12/21/20 08:33 Metoprolol Succinate Er 100 Mg Tab.Er.24h PO 200 mg DAILY ERWIN Administration Protocol Montelukast Sodium 10 mg 12/17/20 21:00 12/20/20 21:20 Montelukast Sodium 10 Mg Tablet PO 10 mg BEDTIME ERWIN Administration Morphine Sulfate 30 mg 12/19/20 08:00 12/21/20 08:36 Morphine Sulfate Er 30 Mg Tablet.Er PO 30 mg Q12H ERWIN Administration Omeprazole 40 mg 12/18/20 09:00 12/21/20 08:35 Omeprazole 40 Mg Capsule. PO 40 mg DAILY ERWIN Administration Ondansetron HCl 4 mg 12/17/20 17:02 Ondansetron Hcl 4 Mg/2 Ml Vial IVPUSH Q8H PRN Nausea and Vomiting Oxycodone HCl 5 mg 12/17/20 17:02 12/20/20 13:47 Oxycodone Hcl Immed Release 5 Mg Tablet PO 5 mg Q6H PRN Administration Breakthrough Pain, Moderate Pharmacy Consult 1 each 12/17/20 10:07 Consult Rx Perform Med Rec MISCELLANE ONCE PRN Consult order Pharmacy Consult 1 each 12/18/20 16:15 Consult Rx Vancomycin Dosing MISCELLANE DAILY PRN Consult order Sodium Chloride 3 ml 12/18/20 00:00 12/21/20 08:33 0.9 % Sodium Chloride Flush 3 Ml Syringe IVFLUSH 3 ml QSHIFT ERWIN Administration Tiotropium [place] 1 puff 12/20/20 09:40 12/21/20 07:39 Tiotropium [place] 18 Mcg Cap.W.Dev INHALE Not Given DAILY [facility] Warfarin Sodium 4 mg 12/17/20 18:00 12/20/20 17:36 Warfarin Sodium 4 Mg Tablet PO 4 mg DAILY@1800 ERWIN Administration Labs CBC & Chem 7: 12/21/20 05:58 12/21/20 05:58 Microbiology Microbiology Results: Microbiology 12/18/20 16:24 Blood - Venous Blood Culture - Preliminary No growth after 48 hours. 12/18/20 16:24 Blood - Venous Blood Culture - Preliminary No growth after 48 hours. 12/17/20 10:39 Blood - Venous Blood Culture - Preliminary No growth after 48 hours. 12/17/20 10:17 Blood - Venous Blood Culture - Final Coag negative Staphylococcus Assessment and Plan (1) Neutropenia: Status: Acute (2) COVID-19: Status: Acute Assessment and Plan: This is a 70 yo F with a recently diagnosed Pancreatic Ca who presented to the hospital with weakness and fevers. She is admitted for further care 1. Neutropenic Fever afebrile > 48 hours blood cx negative x 2 stop vancomcyin / cefepime doxycycline - day 1 ID input appreciated 2. COVID 19 causing respiratory failure with hypoxia +test on 12/11/2020 decadron - day 4/10 remdesivir - Day 5/5 ID input appreciated wean o2- desatting on RA to 88, placed on 1L with improvement to 93 3. Pancytopenia wbc improved -- Granix given 12/20/2020 by oncology hb/platelets stable 4. PAF currently in sinus continue amio, metoprolol, coumadin 5. CHF / COPD not in exacerbation continue baseline meds 6. HypoNa mild resolved 7. DM sliding scale diabetic diet 8. HTN stable, continue current meds Full Code DVT pptx, coumadin
[2020-12-21 15:46] LABS: Glucose, Whole Blood 177 mg/dL (60-115)
[2020-12-21] MEDS: Insulin Lispro 100 UNIT/ML 3 ML VIAL SUBCUT ×2 (16:30→20:30)
[2020-12-21] MEDS: Warfarin Sodium 4 MG TABLET PO (18:13)
[2020-12-21] MEDS: Remdesivir 100 MG in 0.9 % Sodium Chloride 230 ML 115 MG IV (18:14)
[2020-12-21 19:52] LABS: Glucose, Whole Blood 298 mg/dL (60-115)
[2020-12-21] MEDS: Montelukast Sodium 10 MG TABLET PO (20:31)
[2020-12-22 03:33] VITALS: BP 147/68; PULSE 60; RESP 19; TEMP 36.4; O2SAT 96
[2020-12-22 05:11] LABS: Hemoglobin 11.2 g/dl (12.0-16.0); PLT CLUMP 1; Red Cell Distribution Width 12.6 % (11.0-16.0)
[2020-12-22 05:13] LABS: Hematocrit 34.1 % (37-47); Mean Corpuscular HGB Conc 32.8 g/dl (31.0-35.0); Mean Corpuscular Hemoglobin 28.9 pg (27.0-33.0); Mean Corpuscular Volume 88.1 fL (80-98); Mean Platelet Volume 11.7 fL (9.4-12.3); Red Blood Count 3.87 X10*6/uL (4.20-5.50); White Blood Count 9.5 X10*3/uL (4.8-10.8)
[2020-12-22 05:17] LABS: Platelet Count 75 X10*3/uL (160-400)
[2020-12-22 05:44] LABS: Alanine Aminotransferase 36 U/L (0-31); Alkaline Phosphatase 63 U/L (39-117); Anion Gap 14 (12-20); Aspartate Amino Transferase 40 U/L (5-31); Bilirubin Direct < 0.2 mg/dL (0.0-0.5); Bilirubin Total 0.4 mg/dL (0.0-1.0); Blood Urea Nitrogen 12 mg/dL (9-16); Calcium 8.3 mg/dL (8.4-10.2); Carbon Dioxide 28 mmol/L (22-29); Chloride 102 mmol/L (96-108); Creatinine Clr Calc Pharmacy 61.3; Estimated Glomerular Filt Rate > 60; Glucose Random 143 mg/dL (60-115); Potassium 4.7 mmol/L (3.3-5.1); Sodium 139 mmol/L (135-145); Total Protein 5.6 g/dL (6.5-8.0)
[2020-12-22 07:17] LABS: Glucose, Whole Blood 118 mg/dL (60-115)
[2020-12-22 07:39] VITALS: BP 160/67; PULSE 60; RESP 19; TEMP 37; O2SAT 97
[2020-12-22] MEDS: Calcium + Vitamin D 250 MG TABLET 500 MG PO ×2 (08:35→21:10)
[2020-12-22] MEDS: dexAMETHasone sod phosphate 4 MG/ML VIAL 6 MG IVPUSH (08:35)
[2020-12-22] MEDS: Atorvastatin Calcium 40 MG TABLET PO (08:36)
[2020-12-22] MEDS: Losartan Potassium 25 MG TABLET PO (08:36)
[2020-12-22] MEDS: Morphine Sulfate ER 30 MG TABLET.ER PO ×2 (08:36→21:10)
[2020-12-22] MEDS: ALPRAZolam 0.25 MG TABLET PO (08:36)
[2020-12-22] MEDS: Metoprolol Succinate ER 100 MG TAB.ER.24H 200 MG PO (08:36)
[2020-12-22] MEDS: Ferrous Sulfate 324 MG TABLET.DR PO (08:36)
[2020-12-22] MEDS: Amiodarone HCL 200 MG TABLET PO (08:36)
[2020-12-22] MEDS: Omeprazole 40 MG CAPSULE.DR PO (08:36)
[2020-12-22] MEDS: Aspirin 81 MG TAB.CHEW PO (08:37)
[2020-12-22] MEDS: Gabapentin 100 MG CAPSULE 300 MG PO ×2 (08:37→21:10)
[2020-12-22] MEDS: 0.9 % Sodium Chloride Flush 3 ML SYRINGE IVFLUSH ×2 (08:37→16:55)
[2020-12-22] MEDS: carBAMazepine 200 MG TABLET PO (08:37)
[2020-12-22 10:25] LABS: INTERNATIONAL NORM RATIO 3.8 (0.9-1.1); Prothrombin Time 45.6 SEC (10.8-13.0)
[2020-12-22 11:06] LABS: Glucose, Whole Blood 233 mg/dL (60-115)
[2020-12-22 11:11] VITALS: BP 127/79; PULSE 59; RESP 18; TEMP 36.6; O2SAT 94
[2020-12-22] MEDS: Insulin Lispro 100 UNIT/ML 3 ML VIAL SUBCUT ×3 (12:05→21:11)
[2020-12-22 15:34] VITALS: BP 152/66; PULSE 60; RESP 16; TEMP 36.6; O2SAT 94
--- NOTE | 2020-12-22 15:43 | HO.PM.IMPN ---
Subjective Subjective Date of Service: 12/22/20 Interval History: seen and examined tired and weak afraid to go home ROS General - no fevers or chills, +fatigue Cardiovascular - no chest pain Respiratory - no shortness of breath or cough Abdominal- no abdominal pain, nausea, vomiting, diarrhea Physical Exam Vital Signs: Vital Signs: Last Vital Signs Temp 98 F 12/22/20 15:34 Pulse 60 12/22/20 15:34 Resp 16 12/22/20 15:34 BP 152/66 H 12/22/20 15:34 Pulse Ox 94 12/22/20 15:34 Body Mass Index 26.5 Const: Other: General - no acute distress, appears comfortable Cardiovascular - regular rate and rhythm, S1-S2 Lungs - normal respiratory effort, clear to auscultation bilaterally, no wheezing Abdomen - soft, nontender, no rebound or guarding Extremities - no edema bilaterally Neuro - awake and alert, no focal deficits Objective Data Current Medications Generic Name Dose Route Start Last Admin Trade Name Freq PRN Reason Stop Dose Admin Acetaminophen 650 mg 12/17/20 17:02 12/19/20 08:37 Acetaminophen 325 Mg Tablet PO 650 mg Q6H PRN Administration Pain, Mild (Pain Scale 1-3) Albuterol Sulfate 2 puff 12/17/20 17:02 Albuterol Sulfate 90 Mcg 8 Gm Inhaler INHALE QID PRN for wheezing Alprazolam 0.25 mg 12/17/20 21:00 12/22/20 08:36 Alprazolam 0.25 Mg Tablet PO 0.25 mg BID ERWIN Administration Amiodarone HCl 200 mg 12/18/20 09:00 12/22/20 08:36 Amiodarone Hcl 200 Mg Tablet PO 200 mg DAILY ERWIN Administration Aspirin 81 mg 12/18/20 09:00 12/22/20 08:37 Aspirin 81 Mg Tab.Chew PO 81 mg DAILY ERWIN Administration Atorvastatin Calcium 40 mg 12/18/20 09:00 12/22/20 08:36 Atorvastatin Calcium 40 Mg Tablet PO 40 mg DAILY ERWIN Administration Calcium Carbonate/Cholecalciferol 500 mg 12/17/20 21:00 12/22/20 08:35 Calcium + Vitamin D 250 Mg Tablet PO 500 mg BID ERWIN Administration Carbamazepine 200 mg 12/18/20 09:00 12/22/20 08:37 Carbamazepine 200 Mg Tablet PO 200 mg DAILY ERWIN Administration Dexamethasone Sodium Phosphate 6 mg 12/19/20 09:15 12/22/20 08:35 Dexamethasone Sod Phosphate 4 Mg/Ml Vial IVPUSH 12/28/20 09:01 6 mg DAILY ERWIN Administration Doxycycline Hyclate 100 mg 12/21/20 21:00 12/22/20 08:37 Doxycycline Hyclate 100 Mg Tablet PO 100 mg BID ERWIN Administration Ferrous Sulfate 324 mg 12/18/20 09:00 12/22/20 08:36 Ferrous Sulfate 324 Mg Tablet. PO 324 mg DAILY ERWIN Administration Gabapentin 300 mg 12/17/20 21:00 12/22/20 08:37 Gabapentin 100 Mg Capsule PO 300 mg BID ERWIN Administration Remdesivir 100 mg/ Sodium 230 mls @ 115 mls/hr 12/19/20 19:00 12/21/20 20:33 Chloride IV 12/22/20 20:59 Infused Q24H ERWIN Infusion Insulin Human Lispro 0 unit 12/17/20 21:00 12/22/20 12:05 Insulin Lispro 100 Unit/Ml 3 Ml Vial SUBCUT 4 unit QIDACHS ERWIN Administration Protocol Losartan Potassium 25 mg 12/18/20 09:00 12/22/20 08:36 Losartan Potassium 25 Mg Tablet PO 25 mg DAILY [facility] Administration Protocol Metoprolol Succinate 200 mg 12/18/20 09:00 12/22/20 08:36 Metoprolol Succinate Er 100 Mg Tab.Er.24h PO 200 mg DAILY ERWIN Administration Protocol Montelukast Sodium 10 mg 12/17/20 21:00 12/21/20 20:31 Montelukast Sodium 10 Mg Tablet PO 10 mg BEDTIME ERWIN Administration Morphine Sulfate 30 mg 12/19/20 08:00 12/22/20 08:36 Morphine Sulfate Er 30 Mg Tablet.Er PO 30 mg Q12H ERWIN Administration Omeprazole 40 mg 12/18/20 09:00 12/22/20 08:36 Omeprazole 40 Mg Capsule. PO 40 mg DAILY ERWIN Administration Ondansetron HCl 4 mg 12/17/20 17:02 Ondansetron Hcl 4 Mg/2 Ml Vial IVPUSH Q8H PRN Nausea and Vomiting Oxycodone HCl 5 mg 12/17/20 17:02 12/20/20 13:47 Oxycodone Hcl Immed Release 5 Mg Tablet PO 5 mg Q6H PRN Administration Breakthrough Pain, Moderate Pharmacy Consult 1 each 12/17/20 10:07 Consult Rx Perform Med Rec MISCELLANE ONCE PRN Consult order Pharmacy Consult 1 each 12/18/20 16:15 Consult Rx Vancomycin Dosing MISCELLANE DAILY PRN Consult order Sodium Chloride 3 ml 12/18/20 00:00 12/22/20 08:37 0.9 % Sodium Chloride Flush 3 Ml Syringe IVFLUSH 3 ml QSHIFT ERWIN Administration Tiotropium [place] 1 puff 12/20/20 09:40 12/22/20 07:33 Tiotropium [place] 18 Mcg Cap.W.Dev INHALE 1 puff DAILY ERWIN Administration Labs CBC & Chem 7: 12/22/20 04:43 12/22/20 04:43 Microbiology Microbiology Results: Microbiology 12/17/20 10:39 Blood - Venous Blood Culture - Final No growth after 5 days. 12/18/20 16:24 Blood - Venous Blood Culture - Preliminary No growth after 48 hours. 12/18/20 16:24 Blood - Venous Blood Culture - Preliminary No growth after 48 hours. 12/17/20 10:17 Blood - Venous Blood Culture - Final Coag negative Staphylococcus Assessment and Plan (1) Neutropenia: Status: Acute (2) COVID-19: Status: Acute Assessment and Plan: This is a 70 yo F with a recently diagnosed Pancreatic Ca who presented to the hospital with weakness and fevers. She is admitted for further care 1. Neutropenic Fever resolved blood cx negative x 2 doxy day 12/29 ID input appreciated 2. COVID 19 causing respiratory failure with hypoxia +test on 12/11/2020 decadron - day 03/31 remdesivir - completed ID input appreciated was on 1L this AM, wean to RA 3. Pancytopenia wbc improved -- Granix given 12/20/2020 by oncology hb/platelets - slowly rebounding 4. PAF currently in sinus continue amio, metoprolol, hold coumadin -- INR 3.8 5. CHF / COPD not in exacerbation continue baseline meds 6. HypoNa mild resolved 7. DM sliding scale diabetic diet 8. HTN stable, continue current meds Full Code DVT pptx, coumadin dispo: anticipate home with services next 24-48 hours
[2020-12-22 15:58] LABS: Glucose, Whole Blood 214 mg/dL (60-115)
[2020-12-22] MEDS: Remdesivir 100 MG in 0.9 % Sodium Chloride 230 ML 115 MG IV (18:15)
[2020-12-22 19:21] VITALS: BP 127/62; PULSE 61; RESP 18; TEMP 37.1; O2SAT 91
[2020-12-22 19:46] LABS: Glucose, Whole Blood 257 mg/dL (60-115)
[2020-12-22] MEDS: Montelukast Sodium 10 MG TABLET PO (21:10)
[2020-12-23] VITALS: BP 143/70; PULSE 60; RESP 18; TEMP 36.4; O2SAT 93
[2020-12-23] MEDS: 0.9 % Sodium Chloride Flush 3 ML SYRINGE IVFLUSH ×2 (00:30→07:06)
[2020-12-23 04:00] VITALS: BP 166/86; PULSE 60; RESP 18; TEMP 36.6; O2SAT 92
[2020-12-23 06:14] LABS: Mean Platelet Volume 10.9 fL (9.4-12.3); PLT CLUMP 1; Red Cell Distribution Width 12.5 % (11.0-16.0)
[2020-12-23 06:15] LABS: Hematocrit 32.4 % (37-47); Hemoglobin 10.8 g/dl (12.0-16.0); Mean Corpuscular HGB Conc 33.3 g/dl (31.0-35.0); Mean Corpuscular Volume 87.1 fL (80-98); NRBC Pct Auto 0.4 /100WBC (0.0-0.2); Platelet Count 112 X10*3/uL (160-400); Red Blood Count 3.72 X10*6/uL (4.20-5.50); White Blood Count 8.6 X10*3/uL (4.8-10.8)
[2020-12-23 06:18] LABS: INTERNATIONAL NORM RATIO 3.9 (0.9-1.1); Prothrombin Time 47.1 SEC (10.8-13.0)
[2020-12-23] MEDS: Morphine Sulfate ER 30 MG TABLET.ER PO (07:04)
[2020-12-23] MEDS: oxyCODONE HCl Immed Release 5 MG TABLET PO ×2 (07:04→13:17)
[2020-12-23 07:14] LABS: Glucose, Whole Blood 122 mg/dL (60-115)
[2020-12-23 07:33] VITALS: BP 155/76; PULSE 61; RESP 18; TEMP 36.4; O2SAT 92
[2020-12-23 07:57] VITALS: PULSE 82; O2SAT 92
[2020-12-23] MEDS: dexAMETHasone sod phosphate 4 MG/ML VIAL 6 MG IVPUSH (08:58)
[2020-12-23] MEDS: Ferrous Sulfate 324 MG TABLET.DR PO (08:59)
[2020-12-23] MEDS: Omeprazole 40 MG CAPSULE.DR PO (08:59)
[2020-12-23] MEDS: carBAMazepine 200 MG TABLET PO (08:59)
[2020-12-23] MEDS: Aspirin 81 MG TAB.CHEW PO (08:59)
[2020-12-23] MEDS: Losartan Potassium 25 MG TABLET PO (08:59)
[2020-12-23] MEDS: Gabapentin 100 MG CAPSULE 300 MG PO (08:59)
[2020-12-23] MEDS: Calcium + Vitamin D 250 MG TABLET 500 MG PO (08:59)
[2020-12-23] MEDS: Atorvastatin Calcium 40 MG TABLET PO (08:59)
[2020-12-23] MEDS: Amiodarone HCL 200 MG TABLET PO (08:59)
[2020-12-23] MEDS: Metoprolol Succinate ER 100 MG TAB.ER.24H 200 MG PO (08:59)
[2020-12-23 10:57] LABS: Glucose, Whole Blood 179 mg/dL (60-115)
[2020-12-23 11:16] VITALS: BP 160/72; PULSE 60; RESP 18; TEMP 36.7; O2SAT 91
--- NOTE | 2020-12-23 11:20 | MHC.CM.PN ---
Patient is on room air and IV Decadron for COVID+ on 12/11. TC to son/HCP [facility] to discuss discharge plan. LM to return call. Discharge plan is home with resumption of [facility] services. [facility] will provide transport. CM will continue to follow patient for discharge needs.
[2020-12-23] MEDS: Insulin Lispro 100 UNIT/ML 3 ML VIAL SUBCUT (11:50)
--- NOTE | 2020-12-23 12:14 | P.DS_ITS ---
DS: Providers Provider Date of Service: 12/23/20 Date of admission: 12/17/20 17:02 Primary care physician: Malika Mayer MD Consults: 12/17/20 17:02 Consult to Hematology / Oncology Routine Consulting Provider: Mervin Cifuentes Reason for consultation: neutropenic fever Has provider been notified: No Consult to Infectious Diseases Routine Consulting Provider: Eva Carroll Reason for consultation: covid 19 Has provider been notified: No DS: Diagnosis Discharge Diagnosis (1) COVID-19: Status: Acute (2) Acute respiratory failure with hypoxia: Status: Acute (3) Neutropenic fever: Status: Acute (4) Supratherapeutic INR: Status: Acute DS: Medications Discharge Medications Home Medications: Home Medications Medication Instructions Recorded Confirmed aspirin 81 mg PO DAILY 10/30/20 12/17/20 calcium carbonate-vitamin D3 1 tab PO BID 10/30/20 12/17/20 carbamazepine 200 mg PO DAILY 10/30/20 12/17/20 gabapentin 300 mg PO BID 10/30/20 12/17/20 metoprolol succinate 200 mg PO DAILY 10/30/20 12/17/20 omeprazole 40 mg PO DAILY 10/30/20 12/17/20 budesonide-formoterol HFA 160 2 puff INHALATION BID 11/19/20 12/17/20 mcg-4.5 mcg/actuation aerosol inhaler warfarin 2 mg tablet 2 mg PO DAILY 11/19/20 12/17/20 blood sugar diagnostic #10 ea 11/28/20 11/28/20 amiodarone 200 mg tablet 200 mg PO DAILY 11/29/20 12/17/20 ondansetron HCl [Zofran] 4 mg PO Q8H 12/17/20 12/17/20 warfarin 1 tab PO DAILY 12/17/20 Previous Rx's Medication Instructions Recorded warfarin 4 mg tablet See Rx Instructions PO DAILY 30 08/29/20 Days #60 tab losartan 25 mg tablet 25 mg PO DAILY #30 tab 09/05/20 atorvastatin 40 mg tablet 40 mg PO DAILY #90 tab 10/21/20 albuterol sulfate 90 mcg/actuation 2 puff INHALATION QID PRN #8.5 g 10/25/20 aerosol inhaler alprazolam 0.25 mg tablet 0.25 mg PO BID #60 tab 11/11/20 montelukast 10 mg tablet 10 mg PO BEDTIME #90 tab 11/11/20 fluticasone furoate 200 1 inh INHALATION DAILY #30 cap 11/14/20 mcg/actuation blister powder for inhalation morphine [MS Contin] 30 mg PO Q12H #60 tab 11/28/20 oxycodone 5 mg PO Q6H PRN #60 tab 11/28/20 ferrous gluconate 324 mg (37.5 mg 324 mg PO DAILY #90 tab 12/02/20 iron) tablet tiotropium bromide 18 mcg capsule 1 cap INHALATION DAILY #90 inh 12/11/20 with inhalation device metformin [Glucophage XR] 500 mg PO BID #60 tab 12/13/20 fluticasone propionate 50 1 spray INTRANASAL DAILY #48 ml 12/19/20 mcg/actuation nasal spray,suspension dexamethasone [Decadron] 6 mg PO DAILY #5 tab 12/23/20 doxycycline hyclate 100 mg PO BID #10 tab 12/23/20 DS: Summary Hospital Course Hospital Course: Patient was started on broad-spectrum IV antibiotics, IV Decadron, supplemental oxygen and infectious disease consultation was sought. Id recommended broad- spectrum antibiotics for the neutropenic fever and IV remdesivir for COVID. Fortunately, the patient's neutropenia resolved (Neulesta ordered by Oncology) as did her fevers. She was transitioned to p.o. doxycycline per ID recommendations once her blood cultures were negative. She completed her course of remdesivir and 5 days of steroids in the hospital. She will be discharged home with 5 more days of doxycycline and p.o. Decadron. Of note, her INR is supratherapeutic at the time of discharge and her Coumadin will be held. She can resume this once her INR is between 2 and 3. Time Spent with Patient Time attestation: Total time spent providing and/or coordinating discharge services: Discharge coordination time: Greater than 30 minutes Physical Exam Vital Signs: Vital Signs: Last Vital Signs Temp 98.0 F 12/23/20 11:16 Pulse 60 12/23/20 11:16 Resp 18 12/23/20 11:16 BP 160/72 H 12/23/20 11:16 Pulse Ox 91 L 12/23/20 11:16 Body Mass Index 26.5 Const: Other: General - no acute distress, appears comfortable Cardiovascular - regular rate and rhythm, S1-S2 Lungs - normal respiratory effort, clear to auscultation bilaterally, no wheezing Abdomen - soft, nontender, no rebound or guarding Extremities - no edema bilaterally Neuro - awake and alert, no focal deficits DS: Data Data Completed and Pending Labs on day of discharge: Laboratory Tests 12/17/20 12/17/20 12/17/20 10:17 10:17 10:17 WBC 1.5 L RBC 4.45 Hgb 12.7 Hct 38.8 MCV 87.2 MCH 28.5 MCHC 32.7 RDW 12.3 Plt Count 96 L D MPV 11.0 Immature Gran % (Auto) 0.7 H Neut % (Auto) 64.9 Lymph % (Auto) 24.8 [place] % (Auto) 4.1 Eos % (Auto) 5.5 H Baso % (Auto) 0.0 Lymph # (Auto) 0.4 L [place] # (Auto) 0.1 Eos # (Auto) 0.1 Baso # (Auto) 0.0 Abs Immat Gran (auto) 0.01 Absolute Neuts (auto) 0.9 L Absolute Nucleated RBC 0.000 Nucleated RBC % (auto) 0.0 Smear Tech's Comments VERIFIED Smear Path Review PT 12.5 INR 1.1 APTT 25.2 D-Dimer 234 Sodium 131 L Potassium 4.2 Chloride 95 L Carbon Dioxide 24 Anion Gap 16 BUN 11 Creatinine 0.75 Estim Creat Clear Calc 57.2 Estimated GFR > 60 POC Glucose Random Glucose 195 H Lactic Acid Calcium 8.4 Magnesium 1.7 Ferritin 719 H Total Bilirubin 0.6 Direct Bilirubin 0.2 AST 28 D ALT 34 H Alkaline Phosphatase 57 Lactate Dehydrogenase 206 Troponin I High Sens C-Reactive Protein B-Natriuretic Peptide Total Protein 6.9 Albumin 3.9 Procalcitonin Urine Color Urine Appearance Urine pH Ur Specific [employer] Urine Protein Urine Glucose (UA) Urine Ketones Urine Blood Urine Nitrite Ur Leukocyte Esterase Nasal Screen MRSA (PCR) Nasal S. aureus Screen Nasal MRSA/S.aureus Interp Vancomycin Trough 12/17/20 12/17/20 12/17/20 10:17 10:17 10:39 WBC RBC Hgb Hct MCV MCH MCHC RDW Plt Count MPV Immature Gran % (Auto) Neut % (Auto) Lymph % (Auto) [place] % (Auto) Eos % (Auto) Baso % (Auto) Lymph # (Auto) [place] # (Auto) Eos # (Auto) Baso # (Auto) Abs Immat Gran (auto) Absolute Neuts (auto) Absolute Nucleated RBC Nucleated RBC % (auto) Smear Tech's Comments Smear Path Review PT INR APTT D-Dimer Sodium Potassium Chloride Carbon Dioxide Anion Gap BUN Creatinine Estim Creat Clear Calc Estimated GFR POC Glucose Random Glucose Lactic Acid 0.8 Calcium Magnesium Ferritin Total Bilirubin Direct Bilirubin AST ALT Alkaline Phosphatase Lactate Dehydrogenase Troponin I High Sens 44.1 H C-Reactive Protein B-Natriuretic Peptide 51 Total Protein Albumin Procalcitonin 0.02 Urine Color Urine Appearance Urine pH Ur Specific [employer] Urine Protein Urine Glucose (UA) Urine Ketones Urine Blood Urine Nitrite Ur Leukocyte Esterase Nasal Screen MRSA (PCR) Nasal S. aureus Screen Nasal MRSA/S.aureus Interp Vancomycin Trough 12/17/20 12/18/20 12/18/20 20:20 05:23 05:23 WBC 1.9 L RBC 4.12 L Hgb 11.9 L Hct 36.6 L MCV 88.8 MCH 28.9 MCHC 32.5 RDW 12.3 Plt Count 73 L MPV 11.1 Immature Gran % (Auto) 0.5 H Neut % (Auto) 63.4 Lymph % (Auto) 25.8 [place] % (Auto) 7.2 Eos % (Auto) 3.1 Baso % (Auto) 0.0 Lymph # (Auto) 0.5 L [place] # (Auto) 0.1 Eos # (Auto) 0.1 Baso # (Auto) 0.0 Abs Immat Gran (auto) 0.01 Absolute Neuts (auto) 1.2 L Absolute Nucleated RBC 0.000 Nucleated RBC % (auto) 0.0 Smear Tech's Comments VERIFIED Smear Path Review PT INR APTT D-Dimer Sodium 133 L Potassium 4.6 Chloride 96 Carbon Dioxide 28 Anion Gap 14 BUN 11 Creatinine 0.76 Estim Creat Clear Calc 56.4 Estimated GFR > 60 POC Glucose 279 H Random Glucose 145 H Lactic Acid Calcium 8.4 Magnesium Ferritin Total Bilirubin Direct Bilirubin AST ALT Alkaline Phosphatase Lactate Dehydrogenase Troponin I High Sens C-Reactive Protein B-Natriuretic Peptide Total Protein Albumin Procalcitonin Urine Color Urine Appearance Urine pH Ur Specific [employer] Urine Protein Urine Glucose (UA) Urine Ketones Urine Blood Urine Nitrite Ur Leukocyte Esterase Nasal Screen MRSA (PCR) Nasal S. aureus Screen Nasal MRSA/S.aureus Interp Vancomycin Trough 12/18/20 12/18/20 12/18/20 05:23 07:47 11:15 WBC RBC Hgb Hct MCV MCH MCHC RDW Plt Count MPV Immature Gran % (Auto) Neut % (Auto) Lymph % (Auto) [place] % (Auto) Eos % (Auto) Baso % (Auto) Lymph # (Auto) [place] # (Auto) Eos # (Auto) Baso # (Auto) Abs Immat Gran (auto) Absolute Neuts (auto) Absolute Nucleated RBC Nucleated RBC % (auto) Smear Tech's Comments Smear Path Review PT 12.4 INR 1.0 APTT D-Dimer Sodium Potassium Chloride Carbon Dioxide Anion Gap BUN Creatinine Estim Creat Clear Calc Estimated GFR POC Glucose 167 H 163 H Random Glucose Lactic Acid Calcium Magnesium Ferritin Total Bilirubin Direct Bilirubin AST ALT Alkaline Phosphatase Lactate Dehydrogenase Troponin I High Sens C-Reactive Protein B-Natriuretic Peptide Total Protein Albumin Procalcitonin Urine Color Urine Appearance Urine pH Ur Specific [employer] Urine Protein Urine Glucose (UA) Urine Ketones Urine Blood Urine Nitrite Ur Leukocyte Esterase Nasal Screen MRSA (PCR) Nasal S. aureus Screen Nasal MRSA/S.aureus Interp Vancomycin Trough 12/18/20 12/18/20 12/18/20 14:27 15:36 16:24 WBC RBC Hgb Hct MCV MCH MCHC RDW Plt Count MPV Immature Gran % (Auto) Neut % (Auto) Lymph % (Auto) [place] % (Auto) Eos % (Auto) Baso % (Auto) Lymph # (Auto) [place] # (Auto) Eos # (Auto) Baso # (Auto) Abs Immat Gran (auto) Absolute Neuts (auto) Absolute Nucleated RBC Nucleated RBC % (auto) Smear Tech's Comments Smear Path Review PT INR APTT D-Dimer Sodium Potassium Chloride Carbon Dioxide Anion Gap BUN Creatinine Estim Creat Clear Calc Estimated GFR POC Glucose 108 Random Glucose Lactic Acid 1.0 Calcium Magnesium Ferritin Total Bilirubin Direct Bilirubin AST ALT Alkaline Phosphatase Lactate Dehydrogenase Troponin I High Sens C-Reactive Protein B-Natriuretic Peptide Total Protein Albumin Procalcitonin Urine Color YELLOW Urine Appearance HAZY Urine pH 6.0 Ur Specific [employer] >= 1.030 H Urine Protein TRACE Urine Glucose (UA) NEG Urine Ketones NEG Urine Blood NEG Urine Nitrite NEG Ur Leukocyte Esterase NEG Nasal Screen MRSA (PCR) Nasal S. aureus Screen Nasal MRSA/S.aureus Interp Vancomycin Trough 12/18/20 12/18/20 12/19/20 20:26 21:47 05:26 WBC 2.3 L RBC 3.64 L Hgb 10.4 L Hct 32.2 L MCV 88.5 MCH 28.6 MCHC 32.3 RDW 12.2 Plt Count 45 L D MPV 11.2 Immature Gran % (Auto) Neut % (Auto) Lymph % (Auto) [place] % (Auto) Eos % (Auto) Baso % (Auto) Lymph # (Auto) [place] # (Auto) Eos # (Auto) Baso # (Auto) Abs Immat Gran (auto) Absolute Neuts (auto) Absolute Nucleated RBC 0.000 Nucleated RBC % (auto) 0.0 Smear Tech's Comments Smear Path Review PT INR APTT D-Dimer Sodium Potassium Chloride Carbon Dioxide Anion Gap BUN Creatinine Estim Creat Clear Calc Estimated GFR POC Glucose 122 H Random Glucose Lactic Acid Calcium Magnesium Ferritin Total Bilirubin Direct Bilirubin AST ALT Alkaline Phosphatase Lactate Dehydrogenase Troponin I High Sens C-Reactive Protein B-Natriuretic Peptide Total Protein Albumin Procalcitonin Urine Color Urine Appearance Urine pH Ur Specific [employer] Urine Protein Urine Glucose (UA) Urine Ketones Urine Blood Urine Nitrite Ur Leukocyte Esterase Nasal Screen MRSA (PCR) NEGATIVE Nasal S. aureus Screen POSITIVE A Nasal MRSA/S.aureus Interp SEE NOTE Vancomycin Trough 12/19/20 12/19/20 12/19/20 05:26 07:26 08:12 WBC RBC Hgb Hct MCV MCH MCHC RDW Plt Count MPV Immature Gran % (Auto) Neut % (Auto) Lymph % (Auto) [place] % (Auto) Eos % (Auto) Baso % (Auto) Lymph # (Auto) [place] # (Auto) Eos # (Auto) Baso # (Auto) Abs Immat Gran (auto) Absolute Neuts (auto) Absolute Nucleated RBC Nucleated RBC % (auto) Smear Tech's Comments Smear Path Review PT 15.5 H D INR 1.3 H APTT D-Dimer Sodium 131 L Potassium 3.7 Chloride 98 Carbon Dioxide 22 Anion Gap 15 BUN 11 Creatinine 0.62 Estim Creat Clear Calc 69.3 Estimated GFR > 60 POC Glucose 109 Random Glucose 101 Lactic Acid Calcium 7.8 L D Magnesium Ferritin Total Bilirubin 0.5 Direct Bilirubin 0.2 AST 27 ALT 21 Alkaline Phosphatase 37 L D Lactate Dehydrogenase Troponin I High Sens C-Reactive Protein 14.89 H B-Natriuretic Peptide Total Protein 5.3 L D Albumin 3.0 L D Procalcitonin Urine Color Urine Appearance Urine pH Ur Specific [employer] Urine Protein Urine Glucose (UA) Urine Ketones Urine Blood Urine Nitrite Ur Leukocyte Esterase Nasal Screen MRSA (PCR) Nasal S. aureus Screen Nasal MRSA/S.aureus Interp Vancomycin Trough 12/19/20 12/19/20 12/19/20 11:15 15:38 20:13 WBC RBC Hgb Hct MCV MCH MCHC RDW Plt Count MPV Immature Gran % (Auto) Neut % (Auto) Lymph % (Auto) [place] % (Auto) Eos % (Auto) Baso % (Auto) Lymph # (Auto) [place] # (Auto) Eos # (Auto) Baso # (Auto) Abs Immat Gran (auto) Absolute Neuts (auto) Absolute Nucleated RBC Nucleated RBC % (auto) Smear Tech's Comments Smear Path Review PT INR APTT D-Dimer Sodium Potassium Chloride Carbon Dioxide Anion Gap BUN Creatinine Estim Creat Clear Calc Estimated GFR POC Glucose 143 H 186 H 242 H Random Glucose Lactic Acid Calcium Magnesium Ferritin Total Bilirubin Direct Bilirubin AST ALT Alkaline Phosphatase Lactate Dehydrogenase Troponin I High Sens C-Reactive Protein B-Natriuretic Peptide Total Protein Albumin Procalcitonin Urine Color Urine Appearance Urine pH Ur Specific [employer] Urine Protein Urine Glucose (UA) Urine Ketones Urine Blood Urine Nitrite Ur Leukocyte Esterase Nasal Screen MRSA (PCR) Nasal S. aureus Screen Nasal MRSA/S.aureus Interp Vancomycin Trough 12/19/20 12/20/20 12/20/20 20:27 05:23 05:23 WBC 1.3 L RBC 3.69 L Hgb 10.5 L Hct 32.3 L MCV 87.5 MCH 28.5 MCHC 32.5 RDW 12.0 Plt Count 40 L MPV 11.5 Immature Gran % (Auto) 0.7 H Neut % (Auto) 62.2 Lymph % (Auto) 26.7 [place] % (Auto) 10.4 Eos % (Auto) 0.0 Baso % (Auto) 0.0 Lymph # (Auto) 0.4 L [place] # (Auto) 0.1 Eos # (Auto) 0.0 Baso # (Auto) 0.0 Abs Immat Gran (auto) 0.01 Absolute Neuts (auto) 0.8 L Absolute Nucleated RBC 0.000 Nucleated RBC % (auto) 0.0 Smear Tech's Comments VERIFIED Smear Path Review SEE NOTE PT INR APTT D-Dimer Sodium 135 Potassium 3.7 Chloride 100 Carbon Dioxide 25 Anion Gap 14 BUN 13 Creatinine 0.62 Estim Creat Clear Calc 69.3 Estimated GFR > 60 POC Glucose 195 H Random Glucose 167 H D Lactic Acid Calcium 7.9 L Magnesium Ferritin Total Bilirubin 0.4 Direct Bilirubin 0.2 AST 36 H ALT 25 Alkaline Phosphatase 39 Lactate Dehydrogenase Troponin I High Sens C-Reactive Protein B-Natriuretic Peptide Total Protein 5.4 L Albumin 2.9 L Procalcitonin Urine Color Urine Appearance Urine pH Ur Specific [employer] Urine Protein Urine Glucose (UA) Urine Ketones Urine Blood Urine Nitrite Ur Leukocyte Esterase Nasal Screen MRSA (PCR) Nasal S. aureus Screen Nasal MRSA/S.aureus Interp Vancomycin Trough 12/20/20 12/20/20 12/20/20 07:30 08:20 11:33 WBC RBC Hgb Hct MCV MCH MCHC RDW Plt Count MPV Immature Gran % (Auto) Neut % (Auto) Lymph % (Auto) [place] % (Auto) Eos % (Auto) Baso % (Auto) Lymph # (Auto) [place] # (Auto) Eos # (Auto) Baso # (Auto) Abs Immat Gran (auto) Absolute Neuts (auto) Absolute Nucleated RBC Nucleated RBC % (auto) Smear Tech's Comments Smear Path Review PT 20.9 H D INR 1.8 H APTT D-Dimer Sodium Potassium Chloride Carbon Dioxide Anion Gap BUN Creatinine Estim Creat Clear Calc Estimated GFR POC Glucose 146 H 208 H Random Glucose Lactic Acid Calcium Magnesium Ferritin Total Bilirubin Direct Bilirubin AST ALT Alkaline Phosphatase Lactate Dehydrogenase Troponin I High Sens C-Reactive Protein B-Natriuretic Peptide Total Protein Albumin Procalcitonin Urine Color Urine Appearance Urine pH Ur Specific [employer] Urine Protein Urine Glucose (UA) Urine Ketones Urine Blood Urine Nitrite Ur Leukocyte Esterase Nasal Screen MRSA (PCR) Nasal S. aureus Screen Nasal MRSA/S.aureus Interp Vancomycin Trough 12/20/20 12/20/20 12/20/20 15:38 16:38 22:02 WBC RBC Hgb Hct MCV MCH MCHC RDW Plt Count MPV Immature Gran % (Auto) Neut % (Auto) Lymph % (Auto) [place] % (Auto) Eos % (Auto) Baso % (Auto) Lymph # (Auto) [place] # (Auto) Eos # (Auto) Baso # (Auto) Abs Immat Gran (auto) Absolute Neuts (auto) Absolute Nucleated RBC Nucleated RBC % (auto) Smear Tech's Comments Smear Path Review PT INR APTT D-Dimer Sodium Potassium Chloride Carbon Dioxide Anion Gap BUN Creatinine Estim Creat Clear Calc Estimated GFR POC Glucose 147 H 137 H Random Glucose Lactic Acid Calcium Magnesium Ferritin Total Bilirubin Direct Bilirubin AST ALT Alkaline Phosphatase Lactate Dehydrogenase Troponin I High Sens C-Reactive Protein B-Natriuretic Peptide Total Protein Albumin Procalcitonin Urine Color Urine Appearance Urine pH Ur Specific [employer] Urine Protein Urine Glucose (UA) Urine Ketones Urine Blood Urine Nitrite Ur Leukocyte Esterase Nasal Screen MRSA (PCR) Nasal S. aureus Screen Nasal MRSA/S.aureus Interp Vancomycin Trough < 3.0 L 12/21/20 12/21/20 12/21/20 05:58 05:58 07:09 WBC 8.7 RBC 3.48 L Hgb 10.3 L Hct 30.4 L MCV 87.4 MCH 29.6 MCHC 33.9 RDW 12.3 Plt Count 56 L D MPV 11.1 Immature Gran % (Auto) Neut % (Auto) Lymph % (Auto) [place] % (Auto) Eos % (Auto) Baso % (Auto) Lymph # (Auto) [place] # (Auto) Eos # (Auto) Baso # (Auto) Abs Immat Gran (auto) Absolute Neuts (auto) Absolute Nucleated RBC 0.000 Nucleated RBC % (auto) 0.0 Smear Tech's Comments Smear Path Review PT INR APTT D-Dimer Sodium 135 Potassium 4.0 Chloride 101 Carbon Dioxide 28 Anion Gap 10 L BUN 13 Creatinine 0.67 Estim Creat Clear Calc 64.1 Estimated GFR > 60 POC Glucose 78 Random Glucose 76 D Lactic Acid Calcium 7.6 L Magnesium Ferritin Total Bilirubin 0.2 Direct Bilirubin 0.2 AST 54 H ALT 39 H Alkaline Phosphatase 47 D Lactate Dehydrogenase Troponin I High Sens C-Reactive Protein B-Natriuretic Peptide Total Protein 4.9 L Albumin 2.8 L Procalcitonin Urine Color Urine Appearance Urine pH Ur Specific [employer] Urine Protein Urine Glucose (UA) Urine Ketones Urine Blood Urine Nitrite Ur Leukocyte Esterase Nasal Screen MRSA (PCR) Nasal S. aureus Screen Nasal MRSA/S.aureus Interp Vancomycin Trough 12/21/20 12/21/20 12/21/20 07:52 11:13 15:27 WBC RBC Hgb Hct MCV MCH MCHC RDW Plt Count MPV Immature Gran % (Auto) Neut % (Auto) Lymph % (Auto) [place] % (Auto) Eos % (Auto) Baso % (Auto) Lymph # (Auto) [place] # (Auto) Eos # (Auto) Baso # (Auto) Abs Immat Gran (auto) Absolute Neuts (auto) Absolute Nucleated RBC Nucleated RBC % (auto) Smear Tech's Comments Smear Path Review PT 23.6 H INR 2.0 H APTT D-Dimer Sodium Potassium Chloride Carbon Dioxide Anion Gap BUN Creatinine Estim Creat Clear Calc Estimated GFR POC Glucose 141 H 177 H Random Glucose Lactic Acid Calcium Magnesium Ferritin Total Bilirubin Direct Bilirubin AST ALT Alkaline Phosphatase Lactate Dehydrogenase Troponin I High Sens C-Reactive Protein B-Natriuretic Peptide Total Protein Albumin Procalcitonin Urine Color Urine Appearance Urine pH Ur Specific [employer] Urine Protein Urine Glucose (UA) Urine Ketones Urine Blood Urine Nitrite Ur Leukocyte Esterase Nasal Screen MRSA (PCR) Nasal S. aureus Screen Nasal MRSA/S.aureus Interp Vancomycin Trough 12/21/20 12/22/20 12/22/20 19:27 04:43 04:43 WBC 9.5 RBC 3.87 L Hgb 11.2 L Hct 34.1 L MCV 88.1 MCH 28.9 MCHC 32.8 RDW 12.6 Plt Count 75 L D MPV 11.7 Immature Gran % (Auto) Neut % (Auto) Lymph % (Auto) [place] % (Auto) Eos % (Auto) Baso % (Auto) Lymph # (Auto) [place] # (Auto) Eos # (Auto) Baso # (Auto) Abs Immat Gran (auto) Absolute Neuts (auto) Absolute Nucleated RBC 0.000 Nucleated RBC % (auto) 0.0 Smear Tech's Comments Smear Path Review PT INR APTT D-Dimer Sodium 139 Potassium 4.7 Chloride 102 Carbon Dioxide 28 Anion Gap 14 BUN 12 Creatinine 0.70 Estim Creat Clear Calc 61.3 Estimated GFR > 60 POC Glucose 298 H Random Glucose 143 H D Lactic Acid Calcium 8.3 L D Magnesium Ferritin Total Bilirubin 0.4 Direct Bilirubin < 0.2 AST 40 H ALT 36 H Alkaline Phosphatase 63 D Lactate Dehydrogenase Troponin I High Sens C-Reactive Protein B-Natriuretic Peptide Total Protein 5.6 L Albumin 3.0 L Procalcitonin Urine Color Urine Appearance Urine pH Ur Specific [employer] Urine Protein Urine Glucose (UA) Urine Ketones Urine Blood Urine Nitrite Ur Leukocyte Esterase Nasal Screen MRSA (PCR) Nasal S. aureus Screen Nasal MRSA/S.aureus Interp Vancomycin Trough 12/22/20 12/22/20 12/22/20 04:43 07:08 10:09 WBC RBC Hgb Hct MCV MCH MCHC RDW Plt Count MPV Immature Gran % (Auto) Neut % (Auto) Lymph % (Auto) [place] % (Auto) Eos % (Auto) Baso % (Auto) Lymph # (Auto) [place] # (Auto) Eos # (Auto) Baso # (Auto) Abs Immat Gran (auto) Absolute Neuts (auto) Absolute Nucleated RBC Nucleated RBC % (auto) Smear Tech's Comments Smear Path Review PT 45.6 H D INR 3.8 H APTT D-Dimer Sodium Potassium Chloride Carbon Dioxide Anion Gap BUN Creatinine Estim Creat Clear Calc Estimated GFR POC Glucose 118 H Random Glucose Lactic Acid Calcium Magnesium Ferritin Total Bilirubin Direct Bilirubin AST ALT Alkaline Phosphatase Lactate Dehydrogenase Troponin I High Sens C-Reactive Protein B-Natriuretic Peptide Total Protein Albumin Procalcitonin Urine Color Urine Appearance Urine pH Ur Specific [employer] Urine Protein Urine Glucose (UA) Urine Ketones Urine Blood Urine Nitrite Ur Leukocyte Esterase Nasal Screen MRSA (PCR) Nasal S. aureus Screen Nasal MRSA/S.aureus Interp Vancomycin Trough 6.0 L 12/22/20 12/22/20 12/22/20 10:58 15:37 19:24 WBC RBC Hgb Hct MCV MCH MCHC RDW Plt Count MPV Immature Gran % (Auto) Neut % (Auto) Lymph % (Auto) [place] % (Auto) Eos % (Auto) Baso % (Auto) Lymph # (Auto) [place] # (Auto) Eos # (Auto) Baso # (Auto) Abs Immat Gran (auto) Absolute Neuts (auto) Absolute Nucleated RBC Nucleated RBC % (auto) Smear Tech's Comments Smear Path Review PT INR APTT D-Dimer Sodium Potassium Chloride Carbon Dioxide Anion Gap BUN Creatinine Estim Creat Clear Calc Estimated GFR POC Glucose 233 H 214 H 257 H Random Glucose Lactic Acid Calcium Magnesium Ferritin Total Bilirubin Direct Bilirubin AST ALT Alkaline Phosphatase Lactate Dehydrogenase Troponin I High Sens C-Reactive Protein B-Natriuretic Peptide Total Protein Albumin Procalcitonin Urine Color Urine Appearance Urine pH Ur Specific [employer] Urine Protein Urine Glucose (UA) Urine Ketones Urine Blood Urine Nitrite Ur Leukocyte Esterase Nasal Screen MRSA (PCR) Nasal S. aureus Screen Nasal MRSA/S.aureus Interp Vancomycin Trough 12/23/20 12/23/20 12/23/20 05:42 05:42 07:06 WBC 8.6 RBC 3.72 L Hgb 10.8 L Hct 32.4 L MCV 87.1 MCH 29.0 MCHC 33.3 RDW 12.5 Plt Count 112 L D MPV 10.9 Immature Gran % (Auto) Neut % (Auto) Lymph % (Auto) [place] % (Auto) Eos % (Auto) Baso % (Auto) Lymph # (Auto) [place] # (Auto) Eos # (Auto) Baso # (Auto) Abs Immat Gran (auto) Absolute Neuts (auto) Absolute Nucleated RBC 0.030 H Nucleated RBC % (auto) 0.4 H Smear Tech's Comments Smear Path Review PT 47.1 H INR 3.9 H APTT D-Dimer Sodium Potassium Chloride Carbon Dioxide Anion Gap BUN Creatinine Estim Creat Clear Calc Estimated GFR POC Glucose 122 H Random Glucose Lactic Acid Calcium Magnesium Ferritin Total Bilirubin Direct Bilirubin AST ALT Alkaline Phosphatase Lactate Dehydrogenase Troponin I High Sens C-Reactive Protein B-Natriuretic Peptide Total Protein Albumin Procalcitonin Urine Color Urine Appearance Urine pH Ur Specific [employer] Urine Protein Urine Glucose (UA) Urine Ketones Urine Blood Urine Nitrite Ur Leukocyte Esterase Nasal Screen MRSA (PCR) Nasal S. aureus Screen Nasal MRSA/S.aureus Interp Vancomycin Trough 12/23/20 10:50 WBC RBC Hgb Hct MCV MCH MCHC RDW Plt Count MPV Immature Gran % (Auto) Neut % (Auto) Lymph % (Auto) [place] % (Auto) Eos % (Auto) Baso % (Auto) Lymph # (Auto) [place] # (Auto) Eos # (Auto) Baso # (Auto) Abs Immat Gran (auto) Absolute Neuts (auto) Absolute Nucleated RBC Nucleated RBC % (auto) Smear Tech's Comments Smear Path Review PT INR APTT D-Dimer Sodium Potassium Chloride Carbon Dioxide Anion Gap BUN Creatinine Estim Creat Clear Calc Estimated GFR POC Glucose 179 H Random Glucose Lactic Acid Calcium Magnesium Ferritin Total Bilirubin Direct Bilirubin AST ALT Alkaline Phosphatase Lactate Dehydrogenase Troponin I High Sens C-Reactive Protein B-Natriuretic Peptide Total Protein Albumin Procalcitonin Urine Color Urine Appearance Urine pH Ur Specific [employer] Urine Protein Urine Glucose (UA) Urine Ketones Urine Blood Urine Nitrite Ur Leukocyte Esterase Nasal Screen MRSA (PCR) Nasal S. aureus Screen Nasal MRSA/S.aureus Interp Vancomycin Trough Preliminary micro results at discharge 12/18/20 16:24 Blood Culture - Preliminary Blood - Venous No growth after 48 hours. 12/18/20 16:24 Blood Culture - Preliminary Blood - Venous No growth after 48 hours. Discharge Plan Discharge Patient Disposition: Home Health Service Referrals: Moreno,Malika Steven MD [Primary Care Provider] - 1 Week (12/27/2020 1:[address] Bustamante. Please call and reschedule if you can't keep this appointment.) Discharge Medications: New dexamethasone [Decadron] 6 mg tablet 6 mg PO DAILY Qty: 5 RF: 0 doxycycline hyclate 100 mg Tablet 100 mg PO BID Qty: 10 RF: 0 Continued losartan 25 mg tablet 25 mg PO DAILY Qty: 30 RF: 5 atorvastatin 40 mg tablet 40 mg PO DAILY Qty: 90 RF: 1 albuterol sulfate 90 mcg/actuation HFA aerosol inhaler 2 puff inhalation QID PRN (Reason: for wheezing) Qty: 8.5 RF: 0 Arnuity Ellipta 200 mcg/actuation blister with device 1 inh inhalation DAILY Qty: 30 RF: 5 ferrous gluconate 324 mg (37.5 mg iron) tablet 324 mg PO DAILY Qty: 90 RF: 2 tiotropium bromide [Spiriva with HandiHaler] 18 mcg capsule, w/inhalation device 1 cap inhalation DAILY Qty: 90 RF: 3 fluticasone propionate 50 mcg/actuation spray,suspension 1 spray intranasal DAILY Qty: 48 RF: 3 ondansetron HCl [Zofran] 4 mg tablet 4 mg PO Q8H RF: 0 metoprolol succinate 200 mg tablet extended release 24 hr 200 mg PO DAILY RF: 0 carbamazepine 200 mg tablet 200 mg PO DAILY RF: 0 aspirin 81 mg tablet,chewable 81 mg PO DAILY RF: 0 Hold Instructions: Resume on 11/06/20. gabapentin 100 mg capsule 300 mg PO BID RF: 0 calcium carbonate-vitamin D3 600 mg(1,500mg) -400 unit tablet 1 tab PO BID RF: 0 omeprazole 40 mg capsule,delayed release(DR/EC) 40 mg PO DAILY RF: 0 morphine [MS Contin] 30 mg Tablet Extended Release 30 mg PO Q12H Qty: 60 RF: 0 oxycodone 5 mg Tablet 5 mg PO Q6H PRN (Reason: Breakthrough Pain, Moderate) Qty: 60 RF: 0 metformin [Glucophage XR] 500 mg Tablet Extended Release 24 Hr 500 mg PO BID Qty: 60 RF: 3 alprazolam 0.25 mg tablet 0.25 mg PO BID Qty: 60 RF: 0 montelukast 10 mg tablet 10 mg PO BEDTIME Qty: 90 RF: 2 warfarin 2 mg tablet 2 mg PO DAILY RF: 0 budesonide-formoterol 160-4.5 mcg/actuation HFA aerosol inhaler 2 puff inhalation BID RF: 0 (DME) blood sugar diagnostic Strip See Rx Instructions strip .ROUTE .MEDSUPPLY Qty: 10 RF: 0 amiodarone 200 mg tablet 200 mg PO DAILY RF: 0 Held warfarin 4 mg tablet See Rx Instructions mg PO DAILY 30 Days Qty: 60 RF: 3 Hold Instructions: Resume on 12/25/20. Hold until INR between 2-3. Then resume usual dose. warfarin 4 mg tablet 1 tab PO DAILY RF: 0 Hold Instructions: Resume on 12/25/20. hold until INR between 2-3, then resume usual dose. Discharge Orders: Discharge Order (Routine); Ordered 12/23/20 Ordered By: Abdoul Johnson Diet: advance to usual diet Activity on Discharge: As tolerated Stand Alone Forms: Patient Portal Discharge page Care Plan Goals: To stay healthy and out of the hospital. Health Concerns: COVID Neurtopenic Fever Elevated INR Plan of Treatment: COVID - take 5 more days of Decadron Neurtopenic Fever - This has resolved. Finish 5 more days of doxycycline. Elevated INR - Your INR is too high. Do not take coumadin until your INR Is between 2-3, then you may resume your usual dose.
--- NOTE | 2020-12-23 13:18 | MHC.CM.PN ---
Patient is being discharged to son's house today via son transport and services from [facility]. Nurse, 2 son's are aware of discharge.
== END 2020-12-23 14:47 | disposition home health service (06) | DRG 808 ==
LOC: HO.ED 12:59 → HO.EDOVER 17:29 → HO.IMC 17:42
PROVIDERS: Internal Medicine; Nurse Practitioner Acute Care; Admitting Provider Internal Medicine; Emergency Provider Emergency Medicine; PCP Internal Medicine; Visit Provider Family Medicine
DX: D61.810 Antineoplastic chemotherapy induced pancytopenia (principal); U07.1 COVID-19; J96.01 Acute respiratory failure with hypoxia; C25.9 Malignant neoplasm of pancreas, unspecified; C78.00 Secondary malignant neoplasm of unspecified lung; E87.1 Hypo-osmolality and hyponatremia; J44.9 Chronic obstructive pulmonary disease, unspecified; D70.1 Agranulocytosis secondary to cancer chemotherapy; I11.0 Hypertensive heart disease with heart failure; R79.1 Abnormal coagulation profile; T45.1X5A Adverse effect of antineoplastic and immunosuppressive drugs, initial encounter; Y92.9 Unspecified place or not applicable; I50.9 Heart failure, unspecified; I48.0 Paroxysmal atrial fibrillation; Z79.01 Long term (current) use of anticoagulants; Z79.51 Long term (current) use of inhaled steroids; Z79.82 Long term (current) use of aspirin; Z79.891 Long term (current) use of opiate analgesic; Z79.899 Other long term (current) drug therapy
CPT/HCPCS: 36415; 71045; 80048; 80076; 80202; 81003; 82728; 82947; 83605; 83615; 83735; 83880; 84145; 84484; 85025; 85027; 85060; 85379; 85610; 85730; 86140; 87040; 87147; 87205; 87640; 87641; 93005; 94640; 96374; 96375; 99285; C1758; J0692; J1100; J1447; J2270; J2405; J3370; J3490

== ENCOUNTER → 2021-02-06 10:55 | Outpatient (BNVA) | payer OTHER, SELFPAY | PROVIDERS: PCP Internal Medicine; Visit Provider Internal Medicine | DX: Z86.73 Personal history of transient ischemic attack (TIA), and cerebral infarction without residual deficits (principal); Z51.81 Encounter for therapeutic drug level monitoring; Z79.01 Long term (current) use of anticoagulants | CPT/HCPCS: 85610; 99211 ==

== ENCOUNTER → 2021-02-21 10:37 | Outpatient (BNVA) | payer OTHER, SELFPAY | PROVIDERS: PCP Internal Medicine; Visit Provider Internal Medicine | DX: Z86.73 Personal history of transient ischemic attack (TIA), and cerebral infarction without residual deficits (principal); Z51.81 Encounter for therapeutic drug level monitoring; Z79.01 Long term (current) use of anticoagulants | CPT/HCPCS: 85610; 99211 ==

== ENCOUNTER → 2021-03-06 10:42 | Outpatient (BNVA) | payer OTHER, SELFPAY | PROVIDERS: PCP Internal Medicine; Visit Provider Internal Medicine | DX: Z86.73 Personal history of transient ischemic attack (TIA), and cerebral infarction without residual deficits (principal); Z79.01 Long term (current) use of anticoagulants; Z51.81 Encounter for therapeutic drug level monitoring | CPT/HCPCS: 85610; 99211 ==

== ENCOUNTER 2021-03-06 11:08 | Outpatient (REF) | payer OTHER, SELFPAY | END 2021-03-06 11:09 | disposition home or self-care (01) | LOC: HO.LAB 11:08 | PROVIDERS: Visit Provider Internal Medicine | DX: Z20.822 Contact with and (suspected) exposure to COVID-19 (principal) | CPT/HCPCS: C9803; U0003; U0005 ==

== ENCOUNTER → 2021-03-13 10:42 | Outpatient (BNVA) | payer OTHER, SELFPAY | PROVIDERS: PCP Internal Medicine; Visit Provider Internal Medicine | DX: Z86.73 Personal history of transient ischemic attack (TIA), and cerebral infarction without residual deficits (principal); Z79.01 Long term (current) use of anticoagulants; Z51.81 Encounter for therapeutic drug level monitoring | CPT/HCPCS: 85610; 99211 ==

== ENCOUNTER → 2021-03-21 10:46 | Outpatient (BNVA) | payer OTHER, SELFPAY | PROVIDERS: PCP Internal Medicine; Visit Provider Internal Medicine | DX: Z86.73 Personal history of transient ischemic attack (TIA), and cerebral infarction without residual deficits (principal); Z51.81 Encounter for therapeutic drug level monitoring; Z79.01 Long term (current) use of anticoagulants | CPT/HCPCS: 85610; 99211 ==

== ENCOUNTER 2021-03-24 10:47 | Outpatient (REF) | payer OTHER, SELFPAY ==
--- NOTE | ~2021-03-24 | MM_ITS ---
EXAMINATION: MM DIAGNOSTIC DIGITAL BREAST TOMOSYNTHESIS, BILATERAL CLINICAL INFORMATION: Due for yearly. Also follow-up calcifications left breast upper outer quadrant and mid central position. Current treatment for pancreatic cancer. TC score 3%. COMPARISON: Mammography: 05/15/2020, 05/07/2020 (BI-RADS 0), 02/06/2019, 01/20/2018 TECHNIQUE: Digital breast tomosynthesis is performed in both the craniocaudal and mediolateral oblique views along with computer-aided detection (CAD). Synthesized 2D images are generated from the tomosynthesis. Additional views are obtained: Right CC, magnification left CC x3, magnification left ML x4. FINDINGS: The breasts are heterogeneously dense, which may obscure small masses (ACR BI-RADS breast composition Category c). There is fibronodular parenchymal pattern. Parenchymal distribution is similar to prior studies. No developing density or interval mass or architectural abnormality. Again, there are scattered bilateral punctate and coarse and vascular calcifications. Left breast calcifications for follow-up appear increased tightly grouped posterior outer quadrant. The central calcifications are similar to prior diagnostic exam. Results and management options are discussed with the patient at time of visit using an science interpreter. The calcifications posterior outer left breast would be amenable to stereotactic sampling, if patient willing and able, and sampling consistent with other healthcare management plans. Findings discussed with patient's oncologist, Dr. Cifuentes who will follow up with patient on management plans. [facility] center navigator to call PCP with results. MM/MM tomosynthesis diagnostic BI IMPRESSION: 1. Left: Increased grouped calcifications posterior outer left breast. 2. Right: No mammographic evidence of malignancy. ASSESSMENT: BI-RADS 4: Suspicious RECOMMENDATION: Consider stereotactic sampling of the left breast calcifications if patient willing and able, and sampling consistent with patient's other healthcare management plans. If stereotactic biopsy is not performed, then recommend follow up diagnostic left mammography in 6 months. This patient's information was entered into a reminder system with a target due date for their next mammogram.
== END 2021-03-24 10:48 | disposition home or self-care (01) ==
LOC: HO.MAMMO 10:47
PROVIDERS: Visit Provider Internal Medicine
DX: R92.1 Mammographic calcification found on diagnostic imaging of breast (principal)
CPT/HCPCS: 77062; 77066

== ENCOUNTER → 2021-04-03 11:03 | Outpatient (BNVA) | payer OTHER, SELFPAY | PROVIDERS: PCP Internal Medicine; Visit Provider Internal Medicine | DX: Z86.73 Personal history of transient ischemic attack (TIA), and cerebral infarction without residual deficits (principal); Z51.81 Encounter for therapeutic drug level monitoring; Z79.01 Long term (current) use of anticoagulants | CPT/HCPCS: 85610; 99211 ==

== ENCOUNTER 2021-04-04 09:49 | Outpatient (REF) | payer OTHER, SELFPAY ==
--- NOTE | ~2021-04-04 | CT_ITS ---
EXAMINATION: CT CHEST WITH CONTRAST CLINICAL INFORMATION: Follow up pulmonary nodules. History of pancreatic cancer. COMPARISON: Previous PET/CT 12/03/2019 TECHNIQUE: Multidetector volumetric CT imaging of the chest was obtained after the administration of 85 mL of Omnipaque 350 intravenous contrast without immediate adverse reactions. Axial MIP volume rendering provided. Sagittal and coronal reformatted images were obtained. This CT examination was performed using dose optimization techniques as appropriate, variously including the following: *Automated exposure control *Adjustment of mA and/or kV according to patient size (this includes techniques or standardized protocols for targeted exams where dose is matched to indication/reason for exam; i.e. extremities or head) *Use of iterative reconstruction technique DLP: 213 mGy-cm FINDINGS: LUNGS: There are bilateral pulmonary nodules. These do not appear appreciably changed from previous PET/CT scan. Largest left pulmonary nodules measure 7 mm in the superior segment of the left lower lobe (axial image 20, series 4) and 5 x 8 mm in the left lower lobe (axial image 25, series 4). Largest right pulmonary nodule measures 7 mm in the right lower lobe (axial image 30, series 4). MEDIASTINUM: There is a left subclavian pacemaker defibrillator. The heart is enlarged. There is no pericardial effusion. The thoracic aorta is normal in caliber. There are no enlarged hilar or mediastinal lymph nodes. There is a large esophageal hernia or intrathoracic stomach. PLEURA: There is no pleural effusion. No pleural mass or thickening. AXILLAE: No chest wall mass or enlarged axillary lymph nodes are seen. OSSEOUS STRUCTURES: There are degenerative changes of the spine. CT/CT chest w con IMPRESSION: Multiple bilateral pulmonary nodules not appreciably changed from previous PET/CT scan November 2020. Enlarged heart. Large esophageal hernia or intrathoracic stomach.
--- NOTE | ~2021-04-04 | CT_ITS ---
EXAMINATION: CT ABDOMEN AND PELVIS WITH CONTRAST CLINICAL INFORMATION: Pancreatic cancer. COMPARISON: Previous CT of the abdomen and pelvis, most recent 10/30/2020. TECHNIQUE: Multidetector volumetric images were obtained from the superior aspect of the liver through the pubic symphysis following administration 85 mL of Omnipaque 350 intravenous contrast. Sagittal and coronal reformatted images were obtained on the technologist's workstation. Oral contrast: Yes This CT examination was performed using dose optimization techniques as appropriate, variously including the following: *Automated exposure control *Adjustment of mA and/or kV according to patient size (this includes techniques or standardized protocols for targeted exams where dose is matched to indication/reason for exam; i.e. extremities or head) *Use of iterative reconstruction technique DLP: 279 mGy-cm FINDINGS: LIVER, GALLBLADDER, AND BILIARY TREE: The liver is normal in size, shape, and attenuation. No focal hepatic lesion or biliary ductal dilatation is present. The gallbladder is unremarkable with no evidence of radiopaque gallstones, gallbladder wall thickening, or obvious pericholecystic inflammatory changes. PANCREAS: There is a low-attenuation mass seen in the body of the pancreas. This measures approximately 2.5 x 5.2 cm in AP and transverse dimensions. This encases the SMA and abuts the celiac axis and the SMV. The splenic vein is occluded. There may be a small area of fluid seen adjacent to the anterior body of the pancreas (axial image 25, series 3). This does not appear appreciably changed from previous CT October 2020. SPLEEN: Unremarkable. ADRENAL GLANDS: Unremarkable. KIDNEYS AND URETERS: There is a small cyst in the lower pole of the left kidney. The kidneys are otherwise unremarkable. BLADDER: Not optimally distended. GASTROINTESTINAL TRACT: There are postsurgical changes to the sigmoid colon. Large amount of stool in colon suggestive of constipation. Duodenal diverticulum adjacent to the head of the pancreas. The small and large bowel is otherwise unremarkable. The appendix is not identified. There is a large esophageal hernia or intrathoracic stomach. ABDOMINAL WALL: There is a small right ventral hernia containing fat and varices. LYMPH NODES: There are small retroperitoneal lymph nodes that appear unchanged. There are no enlarged lymph nodes. There is no evidence of peritoneal disease. VASCULAR: The SMA is encased by the pancreatic mass. The mass abuts the celiac axis and SMV. The splenic vein is occluded. There are varices. The abdominal aorta is normal in caliber. PELVIC VISCERA: There is a stable left pelvic partially calcified mass, probably representing a fibroid. The uterus and adnexa are otherwise unremarkable. OSSEOUS STRUCTURES: There are mild degenerative changes of the spine. CT/CT abdomen pelvis w con IMPRESSION: No appreciable change in the mass in the body of the pancreas from October 2020 exam.
== END 2021-04-04 09:50 | disposition home or self-care (01) ==
LOC: HO.CT 09:49
PROVIDERS: Visit Provider Internal Medicine Medical Oncology
DX: K86.89 Other specified diseases of pancreas (principal); R91.8 Other nonspecific abnormal finding of lung field
CPT/HCPCS: 71260; 74177

== ENCOUNTER → 2021-04-15 10:43 | Outpatient (BNVA) | payer OTHER, SELFPAY | PROVIDERS: PCP Internal Medicine; Referring Provider Internal Medicine; Visit Provider Internal Medicine Cardiovascular Disease | DX: Z45.02 Encounter for adjustment and management of automatic implantable cardiac defibrillator (principal); Z86.79 Personal history of other diseases of the circulatory system | CPT/HCPCS: 93005; 99212 ==

== ENCOUNTER → 2021-04-17 10:46 | Outpatient (BNVA) | payer OTHER, SELFPAY | PROVIDERS: PCP Internal Medicine; Visit Provider Internal Medicine | DX: Z86.73 Personal history of transient ischemic attack (TIA), and cerebral infarction without residual deficits (principal); Z51.81 Encounter for therapeutic drug level monitoring; Z79.01 Long term (current) use of anticoagulants | CPT/HCPCS: 85610; 99211 ==

== ENCOUNTER → 2021-06-05 10:45 | Outpatient (BNVA) | payer OTHER, SELFPAY | PROVIDERS: PCP Internal Medicine; Visit Provider Internal Medicine | DX: Z86.73 Personal history of transient ischemic attack (TIA), and cerebral infarction without residual deficits (principal); Z51.81 Encounter for therapeutic drug level monitoring; Z79.01 Long term (current) use of anticoagulants | CPT/HCPCS: 85610; 99211 ==

== ENCOUNTER → 2021-06-06 09:35 | Outpatient (REF) | payer OTHER, SELFPAY ==
--- NOTE | 2021-06-06 09:48 | CA_ITS ---
Transthoracic Echocardiogram Patient (Last, First, Middle): Kalani Cardoza M Gender: Female Date of : 1950 Age: 70 Procedure Date: 06/06/2021 Procedure Type: Transthoracic Echocardiogram Location: OP Height: 152.4 cm Weight: 68.01 kg BSA: 1.65 m2 Heart Rate: bpm BP: 140 / 80 mmHg Networks Computer Consultant: KNEDELL Referring MD: Hieu Eddy MD Symptoms: I63.9 - Cerebral infarction, unspecified Study Quality: Fair Conclusions: - The left ventricular systolic function is low normal. The visually estimated ejection fraction is between 50-55%. - Normal right ventricular cavity size. There is borderline right ventricular systolic function. - The left atrium is moderately dilated. Findings Left Ventricle Normal left ventricular cavity size. There is mildly increased left ventricular wall thickness. The left ventricular systolic function is low normal. The visually estimated ejection fraction is between 50-55%. Abnormal diastolic function is noted. Spectral Doppler is indicative of an impaired relaxation filling pattern. Elevated filling pressures. Right Ventricle Normal right ventricular cavity size. There is borderline right ventricular systolic function. There is a pacemaker wire seen in the right ventricle. Atria The left atrium is moderately dilated. Aortic Valve There is a normal trileaflet aortic valve. There is mild calcification of the aortic valve. There is no aortic valve stenosis. There is no aortic valve regurgitation. Mitral Valve The mitral valve appears normal. There is trace mitral valve regurgitation. There is no mitral valve stenosis. Pulmonic Valve The pulmonic valve was not well visualized. Tricuspid Valve Normal tricuspid valve structure. There is trace tricuspid valve regurgitation. Normal right atrial pressure. Mild pulmonary hypertension is present. Great Vessels The visualized portions of the pulmonary artery and branches are normal. Venous The inferior vena cava is normal in size and collapses greater than 50% with inspiration. Pericardium/Pleural There is no evidence of pericardial effusion. Prior Study Comparison Changes noted compared to prior study dated: 12/15/2019. Low normal EF, Borderline RV function, moderately dilated left atrium. Measurements 2D Linear Measurements IVSd: 1.27 0.6-0.9/0.6-1.0 cm LVIDd: 4.04 3.9-5.3/4.2-5.9 cm LVIDd Index: 2.45 2.4-3.2/2.2-3.1 cm/m2 LVIDs: 3.15 2.0-3.6 cm LVPWd: 1.04 0.7-1.1 cm Ao Root: 3.20 2.1-3.5 cm LA Diam: 3.20 2.7-3.8/3.0-4.0 cm LAIDs Index: 1.94 1.5-2.3 cm/m2 LV Mass: 197.71 67-162/88-224 g LV Mass Index: 119.83 43-95/49-115 g/m2 LVOT Diam: 2.10 3.0+(-)1.3 cm 2D Systolic Function EF 4C: 45.50 >55% EF 2C: 55.10 >55% EF BiP: 48.70 >55% Mitral Valve MV Pk E: 0.89 MV PK A: 1.29 MV Decel Time: 358.00 E/A: 0.70 E'Lateral: 4.79 E'Medial: 3.92 E/E' Med: 22.80 E/E' Lat: 18.70 PHT: 105.00 MVA PHT: 2.10 Decel [place]: 2.50 Aortic Valve AoV Pk Naif: 1.48 AoV Mn Naif: 1.01 AoV VTI: 0.35 AoV Pk Grad: 9.00 Aov Mn Grad: 5.00 KURT Cont.VTI: 1.77 LVOT LVOT Pk Naif: 0.74 LVOT Mn Naif: 0.43 LVOT VTI: 0.18 LVOT Pk Grad: 2.00 LVOT Mn Grad: 1.00 LVOT Diam: 2.10 LVOT Area: 3.46 Diastolic Function MV Pk E: 0.89 MV Pk A: 1.29 E/A: 0.70 E'Medial: 3.92 E/E' Med: 22.80 E' Laterial: 4.79 E/E' Lat: 18.70 Tricuspid Valve TR Pk Naif: 2.76 TR Pk Grad: 30.00 RA Press: 8.00 RVSP: 38.00 Great Vessels Aorta Ao Root-2D: 3.20 2.0-3.7 cm Ao Asc: 2.80 2.1-3.4 cm Ao Arch: 2.60 Updated in Other Vendor System with Status of Final Ernesto Freeman MD electronically signed on 06/09/2021 9:25:55 AM with status of Final
== END ==
LOC: HO.CARD 09:35
PROVIDERS: Visit Provider Internal Medicine Cardiovascular Disease
DX: I10 Essential (primary) hypertension (principal); I63.9 Cerebral infarction, unspecified
CPT/HCPCS: 93306

== ENCOUNTER → 2021-07-03 11:00 | Outpatient (BNVA) | payer OTHER, SELFPAY | PROVIDERS: PCP Internal Medicine; Visit Provider Internal Medicine | DX: Z86.73 Personal history of transient ischemic attack (TIA), and cerebral infarction without residual deficits (principal); Z51.81 Encounter for therapeutic drug level monitoring; Z79.01 Long term (current) use of anticoagulants | CPT/HCPCS: 85610; 99211 ==

== ENCOUNTER → 2021-07-08 10:22 | Outpatient (BNVA) | payer OTHER, SELFPAY | PROVIDERS: PCP Internal Medicine; Visit Provider Internal Medicine | DX: Z86.73 Personal history of transient ischemic attack (TIA), and cerebral infarction without residual deficits (principal); Z51.81 Encounter for therapeutic drug level monitoring; Z79.01 Long term (current) use of anticoagulants | CPT/HCPCS: 85610; 99211 ==

== ENCOUNTER → 2021-07-14 10:18 | Outpatient (BNVA) | payer OTHER, SELFPAY | PROVIDERS: PCP Internal Medicine; Visit Provider Internal Medicine | DX: Z86.73 Personal history of transient ischemic attack (TIA), and cerebral infarction without residual deficits (principal); Z51.81 Encounter for therapeutic drug level monitoring; Z79.01 Long term (current) use of anticoagulants | CPT/HCPCS: 85610; 99211 ==

== ENCOUNTER → 2021-07-21 11:48 | Outpatient (BNVA) | payer OTHER, SELFPAY | PROVIDERS: PCP Internal Medicine; Visit Provider Internal Medicine | DX: Z86.73 Personal history of transient ischemic attack (TIA), and cerebral infarction without residual deficits (principal); Z51.81 Encounter for therapeutic drug level monitoring; Z79.01 Long term (current) use of anticoagulants | CPT/HCPCS: 85610; 99211 ==

== ENCOUNTER → 2021-07-25 11:40 | Outpatient (BNVA) | payer OTHER, SELFPAY | PROVIDERS: PCP Internal Medicine; Visit Provider Internal Medicine | DX: Z86.73 Personal history of transient ischemic attack (TIA), and cerebral infarction without residual deficits (principal); Z51.81 Encounter for therapeutic drug level monitoring; Z79.01 Long term (current) use of anticoagulants | CPT/HCPCS: 85610; 99212 ==

== ENCOUNTER → 2021-07-31 10:34 | Outpatient (BNVA) | payer OTHER, SELFPAY | PROVIDERS: PCP Internal Medicine; Visit Provider Internal Medicine | DX: Z86.73 Personal history of transient ischemic attack (TIA), and cerebral infarction without residual deficits (principal); Z51.81 Encounter for therapeutic drug level monitoring; Z79.01 Long term (current) use of anticoagulants | CPT/HCPCS: 85610; 99211 ==

== ENCOUNTER 2021-08-14 12:06 | Outpatient (REF) | payer OTHER, SELFPAY ==
--- NOTE | ~2021-08-14 | XR_ITS ---
EXAMINATION: XR CHEST CLINICAL INFORMATION: COPD COMPARISON: Previous chest x-ray most recent November [address] March 2021 TECHNIQUE: 2 views of the chest were obtained. FINDINGS: The cardiac and mediastinal contours are stable. There is a left subclavian pacemaker in satisfactory position. There is a large air-fluid level projecting over the heart suggestive of an esophageal hernia. The lungs are clear. Pulmonary nodules seen by CT are not appreciated by chest x-ray. There is no pleural effusion or pneumothorax. There are degenerative changes of the spine. XR/XR chest 2V IMPRESSION: No evidence for acute disease in the chest. Large esophageal hernia. Pulmonary nodules seen by CT are not appreciated by chest x-ray.
== END 2021-08-14 12:07 | disposition home or self-care (01) ==
LOC: HO.XRAY 12:06
PROVIDERS: PCP Internal Medicine; Visit Provider Internal Medicine
DX: J44.1 Chronic obstructive pulmonary disease with (acute) exacerbation (principal)
CPT/HCPCS: 71046

== ENCOUNTER 2021-08-22 09:20 | Outpatient (REF) | payer OTHER, SELFPAY ==
--- NOTE | ~2021-08-22 | CT_ITS ---
EXAMINATION: CT CHEST, ABDOMEN AND PELVIS WITH CONTRAST CLINICAL INFORMATION: Pancreatic cancer, on chemotherapy. COMPARISON: CT chest 04/04/2021 TECHNIQUE: 5 mm thin axial and 3 mm thin sagittal and coronal images of the chest, abdomen and without pelvis were obtained following IV 100 mL Omnipaque 350. DLP: 439 mGy-cm. FINDINGS: CHEST: The lungs are expanded with bilateral pulmonary nodules visualized. Previously measured 7 mm left lower lobe superior segment pulmonary nodule measures 5 mm. The adjacent nodule close to the major fissure in the superior segment of the left lower lobe on axial image 16/4 measures 5 mm and appears similar to previous study. Slightly inferiorly in the left lower lobe, there is a 4 mm nodule not clearly visualized on image 19/4, previously measured 5 mm x 8 mm. There are 2 more prominent nodules in the right lower lobe on the previous exam measuring 7 mm which are barely visible on the present exam. These findings may be secondary to improvement in the nodules or in the interslice gap secondary to breathing inconsistency. There are no new nodules visualized. The central trachea and the bronchi are widely patent. The heart size and great vessels are normal caliber. No abnormal sized mediastinal or hilar lymph nodes seen. There is no pericardial effusion. There are coronary artery calcifications present. There is a large hiatal hernia in lower right paramediastinum. There is no pleural effusion or thickening. The axillae and the chest wall appear normal. A solitary pacer electrode lies over the left chest wall with the tips in the right atrium and right ventricle. ABDOMEN AND PELVIS: The liver is normal size, homogeneous in density without focal lesion or intrahepatic ductal dilatation. The visualized spleen is unremarkable. The thickness of the pancreas has decreased, however, there is diffuse attenuation seen throughout the pancreas. The previously seen mass encasing the SMA is much smaller. The tail of the pancreas is atrophic or surgically removed. The splenic vein is occluded and not seen, similar to previous study. Bilateral adrenal glands and the kidneys are unremarkable. No abnormal retroperitoneal lymph nodes or mass seen. There is scattered moderate stool and gas seen throughout the colon without any significant distention. The small bowel loops opacified with oral contrast and appear unremarkable. There is mild thinning of the right rectus muscle just at the level of the umbilicus and below resulting in mild right ventral hernia. The abdominal aorta and its branches are patent. Mild atherosclerotic calcification is seen at the origin of the left renal artery. Imaging through the pelvis reveals a retroverted uterus with a calcified left uterine fibroid. The bladder is compressed. There is no free fluid or free air seen. Bone windows reveal no lytic or sclerotic process. There is grade 1 anterolisthesis L3 over L4 with loss of L3-L4 disc height. There is mild bilateral L3-L4 and L4-L5 facet joint arthropathy. CT/CT abdomen pelvis w con IMPRESSION: Previously described large 7 mm pulmonary nodules are smaller. No new pulmonary nodules are seen. A hypodense mass in the body of the pancreas and encasement surrounding the SMA is stable. The tail of the pancreas is not visualized, similar to previous study. No abnormal chest, abdomen and pelvic lymphadenopathy. Stable calcified left fibroid and right paramidline hernia containing fat and bowel loops. Moderate constipation.
[2021-08-22] MEDS: iohexoL 350 MG/ML 100 ML INFUS..BTL IV (12:14)
== END 2021-08-22 09:21 | disposition home or self-care (01) ==
LOC: HO.CT 09:20
PROVIDERS: PCP Internal Medicine; Visit Provider Internal Medicine Medical Oncology
DX: C25.9 Malignant neoplasm of pancreas, unspecified (principal)
CPT/HCPCS: 71260; 74177; Q9967

== ENCOUNTER 2021-09-29 09:26 | Outpatient (REF) | payer OTHER, SELFPAY ==
--- NOTE | ~2021-09-29 | CT_ITS ---
EXAMINATION: CT HEAD WITHOUT CONTRAST CLINICAL INFORMATION: Headache, unspecified. COMPARISON: CT of the head done on 12/14/2019 and CTA of the head also done on 12/14/2019. TECHNIQUE: Contiguous axial imaging was performed from the skull base to vertex without intravenous administration of contrast. This CT examination was performed using dose optimization techniques as appropriate, variously including the following: *Automated exposure control *Adjustment of mA and/or kV according to patient size (this includes techniques or standardized protocols for targeted exams where dose is matched to indication/reason for exam; i.e. extremities or head) *Use of iterative reconstruction technique DLP: 701.4 mGy-cm FINDINGS: There is no evidence of acute intracranial hemorrhage or territorial infarction. No abnormal mass effect or midline shift is seen. Keller to white matter differentiation is well preserved. No extra-axial fluid collections are identified. The ventricles are normal in size. Previously documented, clinically known left MCA territorial infarction involving the left temporoparietal lobe appear unchanged since 12/14/2019. The osseous structures and soft tissues are normal. The mastoid air cells and visualized portions of the paranasal sinuses are well aerated. CT/CT head/brain wo con IMPRESSION: No acute intracranial pathology. Old chronic left MCA territorial infarction.
== END 2021-09-29 09:27 | disposition home or self-care (01) ==
LOC: HO.CT 09:26
PROVIDERS: Visit Provider Internal Medicine
DX: R51.9 Headache, unspecified (principal)
CPT/HCPCS: 70450

== ENCOUNTER → 2021-10-06 10:41 | Outpatient (BNVA) | payer OTHER, SELFPAY | PROVIDERS: PCP Internal Medicine; Referring Provider Internal Medicine; Visit Provider Internal Medicine Cardiovascular Disease | DX: Z45.02 Encounter for adjustment and management of automatic implantable cardiac defibrillator (principal); Z86.79 Personal history of other diseases of the circulatory system | CPT/HCPCS: 93005; 99212 ==

== ENCOUNTER 2021-12-24 07:44 | Outpatient (REF) | payer OTHER, SELFPAY ==
--- NOTE | ~2021-12-24 | CT_ITS ---
EXAMINATION: CT CHEST WITH CONTRAST CLINICAL INFORMATION: Pancreatic cancer. Follow-up pulmonary nodules. COMPARISON: Previous chest CT most recent August 2021 TECHNIQUE: Multidetector volumetric CT imaging of the chest was obtained after the administration of 65 mL of Omnipaque 350 intravenous contrast without immediate adverse reactions. Axial MIP volume rendering provided. Sagittal and coronal reformatted images were obtained. This CT examination was performed using dose optimization techniques as appropriate, variously including the following: *Automated exposure control *Adjustment of mA and/or kV according to patient size (this includes techniques or standardized protocols for targeted exams where dose is matched to indication/reason for exam; i.e. extremities or head) *Use of iterative reconstruction technique DLP: 113 mGy-cm FINDINGS: LUNGS: There is slight interval increase in size in some of the larger pulmonary nodules. For example, peripheral or subpleural right middle lobe nodule measures 8 mm axial image 237 series 7 compared to 5 mm August 2021. Left lower lobe nodule measures 6 mm axial image 229 series 7 compared to 4 to 5 mm August 2021. There is compressive atelectasis of the right lower lobe adjacent to the large esophageal hernia or intrathoracic stomach. MEDIASTINUM: The heart is upper normal in size. There is a left subclavian dual chamber pacemaker. There is no pericardial effusion. The thoracic aorta is normal in caliber. There are no enlarged hilar or mediastinal lymph nodes. There is a large esophageal hernia or intrathoracic stomach. PLEURA: There is no pleural effusion. No pleural mass or thickening. AXILLA: No chest wall mass or enlarged axillary lymph nodes. UPPER ABDOMEN: There is a mass in the body of the pancreas. This does not appear appreciably changed. There is diverticulosis of the colon. OSSEOUS STRUCTURES: There are degenerative changes of the spine. CT/CT chest w con IMPRESSION: Interval increase in size in some of the larger pulmonary nodules compared to August 2021 exam. Fleischner guidelines were followed.
[2021-12-24] MEDS: iohexoL 350 MG/ML 100 ML INFUS..BTL IV (09:00)
== END 2021-12-24 07:45 | disposition home or self-care (01) ==
LOC: HO.CT 07:44
PROVIDERS: PCP Internal Medicine; Visit Provider Internal Medicine Medical Oncology
DX: C25.9 Malignant neoplasm of pancreas, unspecified (principal)
CPT/HCPCS: 71260; Q9967

== ENCOUNTER 2022-01-26 07:56 | Outpatient (REF) | payer OTHER, MEDICAID, SELFPAY ==
[2022-01-26 09:20] LABS: Immature Retic Fraction 8.6 % (3.0-15.9); Retic HGB Equivalent 31.9 pg (30.0-35.0); Reticulocyte Percent 1.7 % (0.5-1.8); Reticulocytes Absolute 0.073 X10*6/uL (0.026-0.095)
[2022-01-26 09:22] LABS: INTERNATIONAL NORM RATIO 1.2 (0.9-1.1); Prothrombin Time 13.6 SEC (9.9-13.0)
[2022-01-26 09:33] LABS: Estimated Average Glucose 148 mg/dL; Hemoglobin A1c % 6.8 %
[2022-01-26 09:46] LABS: Cholesterol 203 mg/dL; HDL Cholesterol 68 mg/dL; Iron 90 mcg/dL (30-160); LDL Cholesterol Calculated 110 mg/dl; Percent Iron Saturation 24 % (15-50); Total Iron Binding Capacity 371 mcg/dL (228-428); Triglycerides 126 mg/dL; Unsaturated Iron Binding 281 ug/dL
[2022-01-26 10:09] LABS: Ferritin 140 ng/mL (10-250); Free T4 (Free Thyroxine) 1.16 ng/dL (0.71-1.85); Thyroid Stimulating Hormone 1.23 uIU/mL (0.32-4.0); Vitamin D 25-OH Total 25.6 ng/mL (>30)
[2022-01-26 10:41] LABS: Folate > 20.0 ng/mL (> or = 4.0); Vitamin B12 903 pg/mL (200-900)
== END 2022-01-26 07:57 | disposition home or self-care (01) ==
LOC: HO.LAB 07:56
PROVIDERS: PCP Internal Medicine; Visit Provider Internal Medicine
DX: I63.9 Cerebral infarction, unspecified (principal); E78.00 Pure hypercholesterolemia, unspecified
CPT/HCPCS: 36415; 80061; 82306; 82607; 82728; 82746; 83036; 83540; 84439; 84443; 85045; 85610

== ENCOUNTER 2022-02-04 08:37 | Outpatient (REF) | payer OTHER, MEDICAID, SELFPAY ==
--- NOTE | ~2022-02-04 | CT_ITS ---
EXAMINATION: CT ABDOMEN AND PELVIS WITH CONTRAST CLINICAL INFORMATION: Follow-up pancreatic cancer COMPARISON: Previous CT of the abdomen and pelvis most recent August 2021 TECHNIQUE: Multidetector volumetric images were obtained from the superior aspect of the liver through the pubic symphysis following administration 85 mL of Omnipaque 350 intravenous contrast. Sagittal and coronal reformatted images were obtained on the technologist's workstation. Oral contrast: Yes This CT examination was performed using dose optimization techniques as appropriate, variously including the following: *Automated exposure control *Adjustment of mA and/or kV according to patient size (this includes techniques or standardized protocols for targeted exams where dose is matched to indication/reason for exam; i.e. extremities or head) *Use of iterative reconstruction technique DLP: 435 mGy-cm FINDINGS: LUNG BASES: The lung bases are not well evaluated due to artifact from respiratory motion. There are 2 left lower lobe nodules measuring 3 and 4 mm axial image 11 series 4. These are probably unchanged from prior exams. LIVER, GALLBLADDER, AND BILIARY TREE: The liver is low in attenuation suggestive of fatty infiltration. No focal hepatic lesion or biliary ductal dilatation is present. The gallbladder is unremarkable with no evidence of radiopaque gallstones, gallbladder wall thickening, or obvious pericholecystic inflammatory changes. PANCREAS: There is low-attenuation soft tissue mass in the region of the pancreas. This measures 3 x 6 cm in AP and transverse dimension. This does not appear appreciably changed in size from most recent exam August 2021. This may cause narrowing of the adjacent artery. The splenic vein is occluded. SPLEEN: Unremarkable. ADRENAL GLANDS: Unremarkable. KIDNEYS AND URETERS: The kidneys are normal in size, shape, and attenuation. No hydronephrosis, hydroureter, or calculi seen. No perinephric stranding. BLADDER: Not optimally distended. GASTROINTESTINAL TRACT: There are postsurgical changes to the sigmoid colon. There is evidence of diverticulosis of the colon. The duodenal diverticulum adjacent to the head of the pancreas. Small and large bowel is otherwise unremarkable. There is a large esophageal hernia or intrathoracic stomach in the right lower chest. ABDOMINAL WALL: There is a ventral hernia containing fat and varices. LYMPH NODES: There is an enlarged retroperitoneal lymph node at the aortic bifurcation. This measures 1 x 1.7 cm axial image 40 series 4. This is increased from 0.8 x 1.2 cm August 2021. There are smaller more superior periaortic retroperitoneal lymph nodes that appear more prominent as well. There is a small amount of ascites in the pelvis. VASCULAR: Unremarkable. PELVIC VISCERA: Left pelvic vessels are prominent. Probable stable uterine fibroid. The uterus and adnexa are otherwise unremarkable. OSSEOUS STRUCTURES: There are degenerative changes of the spine. CT/CT abdomen pelvis w con IMPRESSION: Limited evaluation of the lung bases due to respiratory motion artifact. There are 2 left lower lobe nodules probably unchanged from previous exams. Stable low-attenuation soft tissue in the region of the pancreas. Occluded splenic vein and varices. Slight interval increase in retroperitoneal lymphadenopathy. Large esophageal hernia or intrathoracic stomach. Ventral hernia containing fat and varices. Fleischner guidelines were followed.
[2022-02-04] MEDS: Barium Sulfate Oral (Mocha) 450 ML ORAL.SUSP 900 ML PO (11:07)
[2022-02-04] MEDS: iohexoL 350 MG/ML 100 ML INFUS..BTL IV (11:28)
== END 2022-02-04 08:38 | disposition home or self-care (01) ==
LOC: HO.CT 08:37
PROVIDERS: PCP Internal Medicine; Visit Provider Internal Medicine Medical Oncology
DX: Z01.810 Encounter for preprocedural cardiovascular examination (principal); C25.9 Malignant neoplasm of pancreas, unspecified; R06.2 Wheezing; Z95.810 Presence of automatic (implantable) cardiac defibrillator; Z86.79 Personal history of other diseases of the circulatory system
CPT/HCPCS: 74177; 93005; 99212; Q9967

== ENCOUNTER 2022-02-06 07:04 | Day surgery (SDC) | payer OTHER, MEDICAID, SELFPAY ==
--- NOTE | ~2022-02-06 | IR_ITS ---
PROCEDURE: IR INSERTION OF TUNNEL CATHETER CLINICAL INFORMATION: Pancreatic cancer, needs long-term chemotherapy. COMPARISON: None TECHNIQUE: Following explaining ultrasound fluoroscopy-guided placement of right portacatheter procedure, benefits and risks, a written consent was obtained. Patient was placed prone on fluoroscopy table in the angiography suite. Preliminary ultrasound imaging was obtained through the right neck. An optimal site was selected and marked on the skin. The marked site was cleaned and draped in usual sterile manner. 1% lidocaine was injected at the puncture site. Under sterile ultrasound guidance, a single wall needle was advanced through the skin and right jugular vein was punctured above the clavicle. After observing venous return, a thin guidewire was placed through the needle into the SVC and needle withdrawn. A 5-Barbadian dilator with sheath was placed over the guidewire. The entire unit was anchored to the drape with hemostats. Approximately 1 gauze length away from the right jugular incision into the right anterior chest wall, 1% lidocaine was injected at the puncture site. A small skin incision was performed and blunt dissection was performed to create a pocket for placement of the hardware. The hardware was placed into the pocket and anchored to the skin with 2-0 nylon sutures. 1% lidocaine with epinephrine was infused from the right anterior neck incision to the right anterior chest wall incision. A tunneler connected to the portacatheter was then bluntly tunneled from the right anterior chest wall incision and pulled through the right anterior neck incision. The catheter was then sized 20 cm. The 5-Barbadian dilator and the guidewire was removed and a thin 0.035 J-wire was advanced through the catheter into the IVC under fluoroscopy. The catheter was removed and a 6.6-Barbadian dilator sheath was inserted over the guidewire. The dilator and the guidewire was removed. The portacatheter was then inserted through the peel-away sheath. The catheter was held in position. The peel-away sheath was removed as catheter was held in position. A chest x-ray image was obtained postprocedure. The subcutaneous right anterior chest wall incision was stitched with 3-0 absorbable sutures subcutaneously and superficial skin sutures were stitched with 4-0 absorbable sutures. A Dermabond was applied as well. The right anterior neck incision was stitched with 4-0 absorbable sutures. Sterile dressing applied at both sites. Patient tolerated procedure extremely well. All elements of maximal sterile barrier technique followed including use of cap, mask, sterile gown, sterile gloves, a sterile full body drape and hand hygiene. Also followed skin preparation with 2% chlorhexidine for cutaneous antisepsis, and sterile ultrasound preparation with sterile gel and probe cover when applicable. Conscious sedation with IV Versed and fentanyl was given during exam. FINDINGS: On preliminary ultrasound imaging, there was a widely patent jugular vein. Successful insertion of 20 cm long 6.6-Barbadian portacatheter with its tip in distal SVC. The catheter is ready for use. FLUOROSCOPY TIME: 0.6 minutes. DOSE AREA PRODUCT: 89 cGy-cm2. IR/IR us guide venous access IMPRESSION: Successful insertion of 6.6 Barbadian Port-A-Cath without immediate complications.
--- NOTE | ~2022-02-06 | IR_ITS ---
PROCEDURE: IR INSERTION OF TUNNEL CATHETER CLINICAL INFORMATION: Pancreatic cancer, needs long-term chemotherapy. COMPARISON: None TECHNIQUE: Following explaining ultrasound fluoroscopy-guided placement of right portacatheter procedure, benefits and risks, a written consent was obtained. Patient was placed prone on fluoroscopy table in the angiography suite. Preliminary ultrasound imaging was obtained through the right neck. An optimal site was selected and marked on the skin. The marked site was cleaned and draped in usual sterile manner. 1% lidocaine was injected at the puncture site. Under sterile ultrasound guidance, a single wall needle was advanced through the skin and right jugular vein was punctured above the clavicle. After observing venous return, a thin guidewire was placed through the needle into the SVC and needle withdrawn. A 5-Lao dilator with sheath was placed over the guidewire. The entire unit was anchored to the drape with hemostats. Approximately 1 gauze length away from the right jugular incision into the right anterior chest wall, 1% lidocaine was injected at the puncture site. A small skin incision was performed and blunt dissection was performed to create a pocket for placement of the hardware. The hardware was placed into the pocket and anchored to the skin with 2-0 nylon sutures. 1% lidocaine with epinephrine was infused from the right anterior neck incision to the right anterior chest wall incision. A tunneler connected to the portacatheter was then bluntly tunneled from the right anterior chest wall incision and pulled through the right anterior neck incision. The catheter was then sized 20 cm. The 5-Lao dilator and the guidewire was removed and a thin 0.035 J-wire was advanced through the catheter into the IVC under fluoroscopy. The catheter was removed and a 6.6-Lao dilator sheath was inserted over the guidewire. The dilator and the guidewire was removed. The portacatheter was then inserted through the peel-away sheath. The catheter was held in position. The peel-away sheath was removed as catheter was held in position. A chest x-ray image was obtained postprocedure. The subcutaneous right anterior chest wall incision was stitched with 3-0 absorbable sutures subcutaneously and superficial skin sutures were stitched with 4-0 absorbable sutures. A Dermabond was applied as well. The right anterior neck incision was stitched with 4-0 absorbable sutures. Sterile dressing applied at both sites. Patient tolerated procedure extremely well. All elements of maximal sterile barrier technique followed including use of cap, mask, sterile gown, sterile gloves, a sterile full body drape and hand hygiene. Also followed skin preparation with 2% chlorhexidine for cutaneous antisepsis, and sterile ultrasound preparation with sterile gel and probe cover when applicable. Conscious sedation with IV Versed and fentanyl was given during exam. FINDINGS: On preliminary ultrasound imaging, there was a widely patent jugular vein. Successful insertion of 20 cm long 6.6-Lao portacatheter with its tip in distal SVC. The catheter is ready for use. FLUOROSCOPY TIME: 0.6 minutes. DOSE AREA PRODUCT: 89 cGy-cm2. IR/IR cvc insert tunnel w prt/pump tender IMPRESSION: Successful insertion of 6.6 Lao Port-A-Cath without immediate complications.
[2022-02-06 07:22] VITALS: BMI 25.7
[2022-02-06 07:35] LABS: MANUAL DIFF FLAG NO
[2022-02-06 07:42] LABS: Basophils Percent Auto 0.2 % (0-2); Eosinophils Absolute Auto 0.2 X10*3/uL (0.0-0.4); Eosinophils Percent Auto 3.6 % (0-4); Hematocrit 38.2 % (37.0-47.0); Imm Gran Abs Auto 0.01 X10*3/uL (0.00-0.03); Imm Gran Pct Auto 0.2 % (0.0-0.4); Lymphocytes Absolute Auto 1.3 X10*3/uL (1.2-4.9); Lymphocytes Percent Auto 20.6 % (20-40); Mean Corpuscular HGB Conc 31.4 g/dl (31.0-35.0); Mean Corpuscular Hemoglobin 29.8 pg (27.0-33.0); Mean Corpuscular Volume 94.8 fL (80.0-98.0); Mean Platelet Volume 10.8 fL (9.4-12.3); Monocytes Absolute Auto 0.6 X10*3/uL (0.1-1.2); Monocytes Percent Auto 9.3 % (2-11); Neutrophils Absolute Auto 4.3 x10*3/uL (2.0-8.3); Neutrophils Percent Auto 66.1 % (45-73); Platelet Count 133 X10*3/uL (160-400); Red Blood Count 4.03 X10*6/uL (4.20-5.50); Red Cell Distribution Width 13.6 % (11.0-16.0); White Blood Count 6.5 X10*3/uL (4.8-10.8)
[2022-02-06 07:43] LABS: Prothrombin Time 11.5 SEC (9.9-13.0)
[2022-02-06 07:46] LABS: Partial Thromboplastin Time 28.7 SEC (24.1-38.0)
[2022-02-06 07:48] LABS: Glucose, Whole Blood 125 mg/dL (60-115)
[2022-02-06 10:15] VITALS: BP 141/63; PULSE 60; RESP 16; TEMP 36.8; O2SAT 95
[2022-02-06 10:45] VITALS: BP 138/78; PULSE 68; RESP 16; O2SAT 96
[2022-02-06] MEDS: Acetaminophen 325 MG TABLET 975 MG PO (11:00)
[2022-02-06 11:15] VITALS: BP 138/65; PULSE 66; RESP 16; O2SAT 95
[2022-02-06 11:45] VITALS: BP 141/65; PULSE 60; RESP 18; O2SAT 96
[2022-02-06 12:15] VITALS: BP 139/56; PULSE 63; RESP 18; O2SAT 95
[2022-02-06 12:45] VITALS: BP 117/46; PULSE 64; RESP 18; TEMP 37.1; O2SAT 96
== END 2022-02-06 13:00 | disposition home or self-care (01) ==
LOC: HO.SSS 07:05
PROVIDERS: PCP Internal Medicine; Visit Provider Radiology Diagnostic Radiology
DX: Z45.2 Encounter for adjustment and management of vascular access device (principal); C25.9 Malignant neoplasm of pancreas, unspecified; J44.9 Chronic obstructive pulmonary disease, unspecified; I50.9 Heart failure, unspecified; E11.9 Type 2 diabetes mellitus without complications; I10 Essential (primary) hypertension; Z79.84 Long term (current) use of oral hypoglycemic drugs; Z86.73 Personal history of transient ischemic attack (TIA), and cerebral infarction without residual deficits; Z79.899 Other long term (current) drug therapy
CPT/HCPCS: 36415; 36561; 76937; 82947; 85025; 85610; 85730; 88341; 88342; 99152; 99153; C1769; C1788; J0690; J1642; J2250; J3010

== ENCOUNTER → 2022-04-01 10:13 | Outpatient (REF) | payer OTHER, MEDICAID, SELFPAY ==
--- NOTE | 2022-04-01 10:18 | CA_ITS ---
Transthoracic Echocardiogram Patient (Last, First, Middle): Kalani Cardoza M Gender: Female Date of : 1950 Age: 71 Procedure Date: 04/01/2022 Procedure Type: Transthoracic Echocardiogram Location: OP Height: 152.4 cm Weight: 58.51 kg BSA: 1.55 m2 Heart Rate: bpm BP: 118 / 60 mmHg Ordnance Keeper: Referring MD: Hieu Eddy MD Rotary Bar Operator: Hieu Eddy MD Symptoms: Z86.79 - Personal history of other diseases of the circul... Study Quality: Fair ECG Rhythm: Sinus Conclusions: - 1. Low normal LV systolic function with impaired relaxation filling pattern with regional wall motion abnormality suggestive underlying coronary artery disease 2. Normal cardiac valvular Doppler 3. Normal RV systolic pressure 4. No gross pericardial effusion Findings Left Ventricle Normal left ventricular cavity size. There is normal left ventricular wall thickness. The left ventricular systolic function is low normal. The visually estimated ejection fraction is between 50-55%. Spectral Doppler is indicative of an impaired relaxation filling pattern. E/E prime ratio is between 8 and 15 consistent with indeterminate filling pressures. Wall Motion Rest Echo Findings The mid inferior, basal inferoseptal, and basal inferolateral segments are hypokinetic. The basal inferior segment is akinetic. All other scored wall segments showed normal motion. Right Ventricle Normal right ventricular cavity size and systolic function. Atria The left atrium is normal in size. There is no evidence of interatrial shunt. The right atrium is normal in size. Aortic Valve The aortic valve was not well visualized. There is no aortic valve stenosis. There is no aortic valve regurgitation. Mitral Valve There is trace mitral valve regurgitation. There is no mitral valve stenosis. Pulmonic Valve The pulmonic valve was not well visualized. Tricuspid Valve Likely normal tricuspid valve structure and function. There is trace tricuspid valve regurgitation. The right ventricular systolic pressure is normal. Normal right atrial pressure. There is no evidence of pulmonary hypertension. Great Vessels All visible segments of the aorta are normal in size. The pulmonary artery was not well visualized. Venous The inferior vena cava is normal in size and collapses greater than 50% with inspiration. Pericardium/Pleural There is no evidence of pericardial effusion. Prior Study Comparison No significant change compared to prior study dated: 06/06/2021. Measurements 2D Linear Measurements IVSd: 0.99 0.6-0.9/0.6-1.0 cm LVIDd: 4.91 3.9-5.3/4.2-5.9 cm LVIDd Index: 3.17 2.4-3.2/2.2-3.1 cm/m2 LVIDs: 3.61 2.0-3.6 cm LVPWd: 0.99 0.7-1.1 cm Ao Root: 2.90 2.1-3.5 cm LA Diam: 3.50 2.7-3.8/3.0-4.0 cm LAIDs Index: 2.26 1.5-2.3 cm/m2 LV Mass: 217.21 67-162/88-224 g LV Mass Index: 140.13 43-95/49-115 g/m2 LVOT Diam: 2.10 3.0+(-)1.3 cm 2D Systolic Function EF 4C: 47.00 >55% EF 2C: 55.80 >55% EF BiP: 52.40 >55% Mitral Valve MV Pk E: 0.73 MV PK A: 1.08 MV Decel Time: 278.00 E/A: 0.70 E'Lateral: 4.24 E'Medial: 5.00 E/E' Med: 14.60 E/E' Lat: 17.20 PHT: 81.00 MVA PHT: 2.72 Decel [place]: 2.62 Aortic Valve AoV Pk Naif: 1.61 AoV Mn Naif: 1.06 AoV VTI: 0.37 AoV Pk Grad: 10.00 Aov Mn Grad: 5.00 KURT Cont.VTI: 1.54 LVOT LVOT Pk Naif: 0.70 LVOT Mn Naif: 0.45 LVOT VTI: 0.16 LVOT Pk Grad: 2.00 LVOT Mn Grad: 1.00 LVOT Diam: 2.10 LVOT Area: 3.46 Diastolic Function MV Pk E: 0.73 MV Pk A: 1.08 E/A: 0.70 E'Medial: 5.00 E/E' Med: 14.60 E' Laterial: 4.24 E/E' Lat: 17.20 Right Ventricle TAPSE (mm): 19.00 Tricuspid Valve TR Pk Naif: 2.42 TR Pk Grad: 23.00 RA Press: 3.00 RVSP: 26.00 Great Vessels Aorta Ao Root-2D: 2.90 2.0-3.7 cm Ao Asc: 2.90 2.1-3.4 cm Pulmonary Valve PV Pk Naif: 0.72 Peak PV Grad: 2.00 Updated in Other Vendor System with Status of Final Hieu Eddy MD electronically signed on 04/03/2022 2:44:50 PM with status of Final
== END ==
LOC: HO.CARD 10:13
PROVIDERS: PCP Internal Medicine; Visit Provider Internal Medicine Cardiovascular Disease
DX: Z86.79 Personal history of other diseases of the circulatory system (principal)
CPT/HCPCS: 93306

== ENCOUNTER → 2022-04-06 10:44 | Outpatient (BNVA) | payer OTHER, SELFPAY | PROVIDERS: PCP Internal Medicine; Referring Provider Internal Medicine; Visit Provider Internal Medicine Cardiovascular Disease | DX: Z45.02 Encounter for adjustment and management of automatic implantable cardiac defibrillator (principal); I42.9 Cardiomyopathy, unspecified; R07.89 Other chest pain | CPT/HCPCS: 93005; 99212 ==

== ENCOUNTER → 2022-05-08 10:30 | Outpatient (BNVA) | payer OTHER, SELFPAY | PROVIDERS: PCP Internal Medicine; Referring Provider Internal Medicine; Visit Provider Internal Medicine Cardiovascular Disease | DX: I42.9 Cardiomyopathy, unspecified (principal); Z86.73 Personal history of transient ischemic attack (TIA), and cerebral infarction without residual deficits; Z79.01 Long term (current) use of anticoagulants; Z45.02 Encounter for adjustment and management of automatic implantable cardiac defibrillator | CPT/HCPCS: 93005; 99212 ==

== ENCOUNTER → 2022-06-09 09:15 | Outpatient (REF) | payer OTHER, SELFPAY ==
--- NOTE | ~2022-06-09 | NM_ITS ---
Myocardial perfusion study Indication: Chest pain to evaluate for myocardial ischemia Technique: The patient was brought in for a Lexiscan perfusion study on 06/09/2022. Patient performed low-level exercise and was injected 0.4 mg of Lexiscan intravenously. Within a minute of injection, 25 mCi of sestamibi was given intravenously. Images were obtained using the SPECT gamma camera interlaced with the gating device. Images were obtained in supine position. Resting perfusion study was performed on 06/10/2022. Patient was administered 25 mCi of sestamibi intravenously at rest. Images were then obtained in supine position. Images obtained with and without CT attenuation. Total DLP 93 mGy-cm. Images were processed with the software and compared side to side in short axis, horizontal long axis and vertical long axis views. Findings: The stress perfusion study showed non attenuated images show mildly reduced uptake in the inferior wall as well as moderately reduced uptake in the inferolateral wall of the LV myocardium. Remainder of the LV myocardium is normally perfused. Attenuation corrected images show mildly reduced uptake in the apex of the LV myocardium. The gated study shows normal LV systolic function with calculated LVEF of 67%. LV cavity is normal in size. The gated study shows normal systolic wall thickening and contraction of segments. Resting study shows attenuated corrected images show normal uptake of radiotracer in all segments of LV myocardium. Gating at rest reveals normal systolic wall motion with ejection fraction at greater than 60%. The findings are consistent with possible small area of mild intensity apical ischemia on attenuated corrected images.. NM/NM ivory perf SPECT rest & str Impression: 1. Myocardial perfusion imaging study shows equivocal for mild intensity apical ischemia 2. Gated LVEF is 67% 3. Transient ischemic dilatation not present EKG is nondiagnostic for ischemia
--- NOTE | 2022-06-09 09:20 | CA_ITS ---
Acquisition Time: 2022-06-09 09:28:26 Total Exercise Time: 00:02:00 Test Indications: Palpitations, FATIGUE Medications: Protocol: LEXISCAN Max HR: 108 BPM 72% of Pred: 149 BPM Max BP: 146/078 mmHG Max Work Load: 1.0 METS Pharmacological stress test with Lexiscan injection, while sitting, with report of sob, no chest discomfort, with isolated PVC, V paced rhythm, with normotensive response to injection, with nondiagnostic EKG for ischemia. In recovery she was treated with Aminophylline 75mg IVP to reverse Lexiscan. Nuclear images pending. Test reviewed with Dr Freeman. Referred By: Hieu Eddy Overread By: ALISHA VILLARREAL
== END ==
LOC: HO.CARD 09:15
PROVIDERS: PCP Internal Medicine; Visit Provider Internal Medicine Cardiovascular Disease
DX: R07.89 Other chest pain (principal)
CPT/HCPCS: 78452; 93017; A9500; J0280; J2785

== ENCOUNTER 2022-06-23 07:24 | Outpatient (REF) | payer OTHER, SELFPAY ==
--- NOTE | ~2022-06-23 | CT_ITS ---
EXAMINATION: CT ABDOMEN AND PELVIS WITH CONTRAST CLINICAL INFORMATION: Follow-up pancreatic cancer. On chemotherapy. COMPARISON: Previous CT of the abdomen and pelvis most recent January 2022 TECHNIQUE: Multidetector volumetric images were obtained from the superior aspect of the liver through the pubic symphysis following administration 85 mL of Omnipaque 350 intravenous contrast. Sagittal and coronal reformatted images were obtained on the technologist's workstation. Oral contrast: Yes This CT examination was performed using dose optimization techniques as appropriate, variously including the following: *Automated exposure control *Adjustment of mA and/or kV according to patient size (this includes techniques or standardized protocols for targeted exams where dose is matched to indication/reason for exam; i.e. extremities or head) *Use of iterative reconstruction technique DLP: 276 mGy-cm FINDINGS: LUNG BASES: The visualized lung bases are unremarkable. LIVER, GALLBLADDER, AND BILIARY TREE: The liver is normal in size, shape, and attenuation. No focal hepatic lesion or biliary ductal dilatation is present. The gallbladder is unremarkable with no evidence of radiopaque gallstones, gallbladder wall thickening, or obvious pericholecystic inflammatory changes. PANCREAS: There is a low-attenuation soft tissue mass in the head body of the pancreas. This measures approximately 3.3 x 4.8 cm in AP and transverse dimension axial image 22 series 4. The splenic vein is occluded. This encases the celiac axis, SMA and SMV. This does not appear appreciably changed in size from most recent exam January 2022. There are atrophic changes of the tail of the pancreas. The main pancreatic duct does not appear dilated. SPLEEN: Unremarkable. ADRENAL GLANDS: Unremarkable. KIDNEYS AND URETERS: There is a small left renal cyst. The kidneys are otherwise normal. BLADDER: Not optimally distended. GASTROINTESTINAL TRACT: Postsurgical change to the sigmoid colon. Mild diverticulosis of the colon. Duodenal diverticulum adjacent to the head of the pancreas. Large esophageal hernia right lower medial chest ABDOMINAL WALL: Right ventral hernia containing fat and varices. LYMPH NODES: There are enlarged retroperitoneal lymph nodes. These do not appear appreciably changed from exam January 2022. Largest lymph node is aortic bifurcation lymph node measuring maximum 1.1 cm 9 series 4. No ascites. No peritoneal disease. VASCULAR: Occluded splenic vein and varices. SMV and portal veins are patent. Mass encases the celiac axis and SMA and SMV. PELVIC VISCERA: Prominent left adnexal vessels in the uterine fibroid. Unchanged. OSSEOUS STRUCTURES: Unremarkable. CT/CT abdomen pelvis w con IMPRESSION: No appreciable change in the pancreatic mass and enlarged retroperitoneal lymph nodes arch 2021 exam. Fleischner guidelines were followed.
--- NOTE | ~2022-06-23 | CT_ITS ---
EXAMINATION: CT CHEST WITH CONTRAST CLINICAL INFORMATION: Pancreatic cancer COMPARISON: Previous chest CT scans most recent December 2021 TECHNIQUE: Multidetector volumetric CT imaging of the chest was obtained after the administration of 85 mL of Omnipaque 350 intravenous contrast without immediate adverse reactions. Axial MIP volume rendering provided. Sagittal and coronal reformatted images were obtained. This CT examination was performed using dose optimization techniques as appropriate, variously including the following: *Automated exposure control *Adjustment of mA and/or kV according to patient size (this includes techniques or standardized protocols for targeted exams where dose is matched to indication/reason for exam; i.e. extremities or head) *Use of iterative reconstruction technique DLP: 118 mGy-cm FINDINGS: LUNGS: There are multiple bilateral pulmonary nodules. Several larger nodules appear slightly increased in size compared to most recent exam December 2021. Largest right pulmonary nodules are a 10 mm peripheral or subpleural right middle lobe nodule axial image 30 series 3 compared to 8 mm, and 0.8 x 1 cm right lower lobe nodule axial image 31 series 2 compared to 6 x 8 mm. There is slight interval increase in size in the largest left pulmonary nodule measuring 7 mm compared to 6 mm axial image 31 series 3. There are increasing size of several lingular nodules for example measuring 6 mm axial image 30 series 3 compared to 4 mm December 2021 exam. MEDIASTINUM: There is a large esophageal hernia in the right lower medial chest. The heart is enlarged. There is coronary artery calcification. There is a left subclavian dual chamber pacemaker. There is a right jugular port. There are no enlarged hilar or mediastinal lymph nodes. PLEURA: There is no pleural effusion. No pleural mass or thickening. AXILLA: No lymphadenopathy. UPPER ABDOMEN: See CT of the abdomen and pelvis report from the same day OSSEOUS STRUCTURES: There are degenerative changes of the spine. CT/CT chest w con IMPRESSION: Slight interval increase in size in bilateral pulmonary nodules. Fleischner guidelines were followed.
[2022-06-23] MEDS: Barium Sulfate Oral (Vanilla) 450 ML ORAL.SUSP 900 ML PO (10:24)
[2022-06-23] MEDS: iohexoL 350 MG/ML 100 ML INFUS..BTL IV (10:25)
== END 2022-06-23 07:25 | disposition home or self-care (01) ==
LOC: HO.CT 07:24
PROVIDERS: PCP Internal Medicine; Visit Provider Internal Medicine Medical Oncology
DX: C25.9 Malignant neoplasm of pancreas, unspecified (principal)
CPT/HCPCS: 71260; 74177; Q9967

== ENCOUNTER 2022-07-15 09:42 | Observation (INO) | payer OTHER, SELFPAY ==
[2022-07-15] VITALS (11 sets, daily range): BP systolic 127–161; BP diastolic 58–78; PULSE 84–100; RESP 13–25; TEMP 36.7–37.2; O2SAT 97–198; BMI 25.2
--- NOTE | ~2022-07-15 | XR_ITS ---
EXAMINATION: XR CHEST CLINICAL INFORMATION: Dyspnea COMPARISON: Chest CT June 23, 2022 and chest x-ray August 14, 2021 TECHNIQUE: Frontal view of the chest was obtained. FINDINGS: Cardiac silhouette is stable. Multi lead AICD is unchanged in orientation. Right chest port present with tip terminating within the distal SVC. A large hiatal hernia is appreciated. The lungs are well aerated. There is no lobar consolidation. No pleural effusion or pneumothorax. XR/XR chest 1V IMPRESSION: No acute pulmonary pathology.
--- NOTE | 2022-07-15 10:00 | ECG_ITS ---
Test Reason : Dyspnea Blood Pressure : / mmHG Vent. Rate : 093 BPM Atrial Rate : 093 BPM P-R Int : 108 ms QRS Dur : 140 ms QT Int : 412 ms P-R-T Axes : 032 108 038 degrees QTc Int : 512 ms Atrial-sensed ventricular-paced rhythm Abnormal ECG When compared with ECG of 17-DEC-2020 10:32, Vent. rate has increased BY 21 BPM Referred By: Zahira Goncalves Electronically Signed By:SHAYNA HOANG
--- NOTE | 2022-07-15 10:27 | ED.ASTHMA ---
HPI - Asthma General Chief Complaint: Dyspnea Stated Complaint: ASTHMA EXAC W/WHEEZES Time Seen by Provider: 07/15/22 09:59 Source: patient, old records reviewed and hourly sign language interpreter Mode of arrival: EMS Limitations: no limitations History of Present Illness HPI Narrative: 71 yo female hx of COPD, cardiomyopathy with ICD, DM, CAD, HTN, HLD, GERD, stage IV pancreatic cancer currently on gemcitabine / Abraxane , hx of DVT on eliquis comes in with 3 days of dry cough, wheezing, no fevers, no sputum production using her neb machine at home without relief. EMS was a BLS truck put her on neb machine but unable to get spO2. MD complaint: asthma attack , shortness of breath and wheezing Onset (ago): day(s) (since Wednesday ) Severity: moderate Context: none known Associated symptoms: dry cough Asthma History: childhood onset Treatments Prior to Arrival: inhaled bronchodilator Related Data Home Medications Medication Instructions Recorded Confirmed multivitamin with folic acid 400 1 tab PO BEDTIME 07/21/21 07/10/22 mcg tablet (Daily-Eve (with folic acid)) amitriptyline 25 mg tablet 1 tab PO BEDTIME 02/17/22 07/10/22 Previous Rx's Medication Instructions Recorded fluticasone propionate 50 1 spray intranasal DAILY #48 mL 12/19/20 mcg/actuation nasal spray,suspension gabapentin 100 mg capsule 300 mg PO BID 90 days #540 caps 03/31/21 docusate sodium 100 mg capsule 100 mg PO BID constipation 90 days 04/23/21 #180 caps calcium carbonate 600 mg-vitamin 1 tab PO BID 90 days #180 tabs 05/28/21 D3 10 mcg (400 unit) tablet diphenhydramine HCl 25 mg capsule 25 mg PO Q6H PRN allergic reaction 06/17/21 (Banophen) #90 caps tretinoin 0.1 % topical cream 1 appl topical BEDTIME #45 grams 07/16/21 xnbssolsnh-dnsctcxqjoxtg-kfpnouqx 1 tab PO Q8H PRN Back Pain #14 tabs 07/31/21 50 mg-325 mg-40 mg tablet lancets (OneTouch UltraSoft 1 ea miscellaneous TID for 07/31/21 Lancets) diabetes mellitus 90 days #300 caps nut.tx.gluc.intol,lac-free,soy 1 ea PO TID 90 days #360 bottles 07/31/21 (Glucerna oral liquid) peg 400-propylene glycol 0.4 %-0.3 2 drp ophthalmic (eye) BID-QID PRN 08/13/21 % eye drops (Lubricant Eye (PG-PEG dry eye(s) #15 mL 400)) albuterol sulfate 2.5 mg/3 mL 2.5 mg (3 mL) inhalation Q4-6H PRN 09/11/21 (0.083 %) solution for nebulization shortness of breath or wheezing 30 days #180 mL nebulizers (AerBloomspot Go Nebulizer) #1 ea 09/11/21 sennosides 8.6 mg-docusate sodium 2 tab-cap PO BEDTIME #60 tabs 09/11/21 50 mg tablet (Senna-S) blood sugar diagnostic #100 ea 10/30/21 blood sugar diagnostic #200 boxes 11/03/21 Glucerna #90 ea 11/25/21 tiotropium bromide 18 mcg capsule 1 cap inhalation DAILY #90 12/08/21 with inhalation device (Spiriva inhalations with HandiHaler) atorvastatin 40 mg tablet 40 mg PO DAILY #90 tabs 12/18/21 omeprazole 40 mg capsule,delayed 40 mg PO DAILY #90 caps 12/24/21 release Magic Mouthwash 10 ml PO QID #240 mL 01/26/22 Diphen/Lido/Antacid 1:1:1 240 mL suspension alprazolam 0.25 mg tablet 0.25 mg PO BID 30 days #60 tabs 01/28/22 nitroglycerin 0.4 mg sublingual 0.4 mg sublingual Q5M PRN chest 02/09/22 tablet pain #20 tabs metoprolol succinate 200 mg 200 mg PO DAILY #90 tabs 03/02/22 tablet,extended release 24 hr losartan 25 mg tablet 25 mg PO DAILY #90 tabs 03/06/22 carbamazepine 200 mg tablet 200 mg PO DAILY 90 days #90 tabs 03/19/22 fluticasone furoate 200 1 inh inhalation DAILY #30 ea 03/19/22 mcg/actuation blister powder for inhalation (Arnuity Ellipta) food supplemt, lactose-reduced 1 ea PO TIDWMEAL intolerance 30 04/16/22 (Ensure oral liquid) days #90 bottles loperamide 2 mg capsule (Imodium 2 mg PO Q4H PRN Diarrhea #60 caps 05/01/22 A-D) ipratropium 0.5 mg-albuterol 3 mg 3 ml inhalation Q4-6H PRN wheezing 05/26/22 (2.5 mg base)/3 mL nebulization 30 days #180 mL soln ferrous gluconate 324 mg (37.5 mg 324 mg PO DAILY #90 tabs 05/28/22 iron) tablet ondansetron HCl 4 mg tablet 8 mg PO Q8H #60 tabs 05/29/22 apixaban 5 mg tablet (Eliquis) 5 mg PO BID #60 tabs 06/08/22 amiodarone 100 mg tablet 100 mg PO DAILY #90 tabs 06/10/22 megestrol 625 mg/5 mL (125 mg/mL) 5 ml PO QAM #250 mL 06/13/22 oral suspension albuterol sulfate 90 mcg/actuation 2 puff inhalation Q4H #8.5 ea 06/15/22 aerosol inhaler clotrimazole-betamethasone 1 1 appl topical BID #45 grams 06/17/22 %-0.05 % topical cream metformin 500 mg tablet,extended 500 mg PO BID #180 tabs 06/17/22 release 24 hr benzonatate 100 mg capsule 100 mg PO BID PRN cough 5 days #10 06/22/22 caps prednisone 10 mg tablet See Rx Instructions PO DAILY #20 06/25/22 tabs morphine 30 mg tablet,extended 30 mg PO Q12H moderate pain #60 06/26/22 release (MS Contin) tabs oxycodone 5 mg tablet 5 mg PO Q6H PRN Breakthrough Pain, 06/26/22 Moderate #60 tabs montelukast 10 mg tablet 10 mg PO BEDTIME #90 tabs 07/14/22 Allergies Allergy/AdvReac Type Severity Reaction Status Date / Time No Known Allergies Allergy Verified 06/25/22 09:42 Review of Systems Review of Systems: Constitutional : No Fever, No Chills ENT/Mouth : No Hoarseness, No sore throat, No Rhinorrhea Eyes: No Redness, No Discharge, No Vision Changes Cardiovascular : pos Chest tightness, positive SOB, positive Dyspnea on Exertion, No Edema Respiratory : positive Cough, No Sputum, positive Wheezing, Gastrointestinal : No Nausea, No Vomiting, No Diarrhea, No abdominal Pain Genitourinary : No Dysuria, No Hematuria Musculoskeletal : No joint pain, No Myalgias Skin : No rash Neuro : No Weakness, No Numbness, No Headache Psych : No anxiety, depression Heme/Lymph: No Bruising, No Bleeding Endocrine : No Polyuria, No Polydipsia All other systems reviewed and are negative COUNTS INCLUDE 234 BEDS AT THE [facility] Past Medical History Attestation statement: The following information was validated with the patient. Medical History Anxiety and depression Biventricular ICD (implantable cardioverter-defibrillator) in place Cardiomyopathy Congestive heart failure COPD (chronic obstructive pulmonary disease) Coronary artery disease Current use of anticoagulant therapy CVA (cerebral vascular accident) Diverticulitis Esophageal hernia GERD (gastroesophageal reflux disease) History of renal calculi HTN (hypertension) Hypercholesterolemia Hyponatremia Osteopenia Type 2 diabetes mellitus with hyperglycemia Umbilical hernia Surgical History History of hemicolectomy History of incisional hernia repair History of pacemaker Family History Family History Father Medical history unknown Mother Diabetes Hypertension Social History Social History Household Members: Family Housing: House Are you a primary gericare aide teacher to a significant other at home: No Do you presently have visiting nurse or other home services: No Alcohol intake: never Patient Tobacco Use Status: Never used Tobacco e-Cigarette/Vaping Use: Never Used Second Hand Smoke Exposure: No Use of substances other than those prescribed or required for medical reasons: No Advance Directives: Yes Advance Directives on File: Yes Advance Directives Date on File: 02/17/22 service: No Current occupational status: retired Cognitive needs: No Vision needs: Yes Physical Exam Vital Signs: Vital Signs: Last Vital Signs Temp 98.5 F 07/15/22 12:02 Pulse 91 07/15/22 12:02 Resp 15 07/15/22 12:02 BP 161/73 H 07/15/22 12:02 Pulse Ox 100 07/15/22 12:02 O2 Del Method 07/15/22 12:02 BMI result Body Mass Index 25.2 Appearance: Alert. Oriented X3. Mild acute distress. Eyes: Pupils equal, round and reactive to light. ENT: Pharynx normal. Neck: Normal inspection. Neck supple. CVS: Normal heart rate and rhythm. Pulses normal. Respiratory: Mild respiratory distress - tachypnea and retractions. Breath sounds with diffuse exp wheezes throughout Abdomen: Soft and non-tender. Skin: Skin warm and dry. Normal skin color. Normal skin turgor. Extremities: No lower extremity edema. No calf ttp Neuro: Oriented X 3. No motor deficit. No sensory deficit. Course Course Course Narrative: lactic acidosis due to albuterol and not infection or severe sepsis still tight and coughing - repeat neb ordered, planned admit for COPD MDM - Asthma MDM Narrative Medical decision making narrative: 71 yo female hx of COPD, cardiomyopathy with ICD, DM, CAD, HTN, HLD, GERD, stage IV pancreatic cancer currently on gemcitabine / Abraxane , hx of DVT on eliquis here with c/o wheezing, dry cough, chest tightness and asthma exacerbation. She denies fevers or sputum. At this time labs, neb, IV steroids. CXR for pneumonia. Doubt ACS given pain related to cough and wheezing. Already on DOAC doubt PE and she reports daily compliance. Dispo per results and findings - suspect COPD exacerbation. Lab Data Result diagrams: 07/15/22 11:11 07/15/22 11:11 Labs: Lab Results 07/15/22 07/15/22 07/15/22 Range/Units 11:11 11:11 11:11 WBC 4.5 L (4.8-10.8) X10*3/uL RBC 3.42 L (4.20-5.50) X10*6/uL Hgb 10.4 L (12.0-16.0) g/dl Hct 32.2 L (37.0-47.0) % MCV 94.2 (80.0-98.0) fL MCH 30.4 (27.0-33.0) pg MCHC 32.3 (31.0-35.0) g/dl RDW 14.6 (11.0-16.0) % Plt Count 102 L D (160-400) X10*3/uL MPV 10.5 (9.4-12.3) fL Immature Gran % (Auto) 1.3 H (0.0-0.4) % Neut % (Auto) 76.1 H (45-73) % Lymph % (Auto) 18.8 L (20-40) % [place] % (Auto) 2.9 (2-11) % Eos % (Auto) 0.7 (0-4) % Baso % (Auto) 0.2 (0-2) % Lymph # (Auto) 0.8 L (1.2-4.9) X10*3/uL [place] # (Auto) 0.1 (0.1-1.2) X10*3/uL Eos # (Auto) 0.0 (0.0-0.4) X10*3/uL Baso # (Auto) 0.0 (0.0-0.2) X10*3/uL Abs Immat Gran (auto) 0.06 H (0.00-0.03) X10*3/uL Absolute Neuts (auto) 3.4 (2.0-8.3) x10*3/uL Absolute Nucleated RBC 0.000 (0.0-0.012) X10*3/uL Nucleated RBC % (auto) 0.0 (0.0-0.2) /100WBC PT (10.0-13.1) SEC INR (0.9-1.1) VBG pH (7.32-7.43) VBG pCO2 mmHg VBG pO2 mmHg VBG HCO3 (22-26) mmol/L VBG O2 Saturation % VBG Base Excess mmol/L Sodium 139 (135-145) mmol/L Potassium 3.6 (3.3-5.1) mmol/L Chloride 105 (96-108) mmol/L Carbon Dioxide 23 (22-29) mmol/L Anion Gap 15 (12-20) BUN 21 H (9-16) mg/dL Creatinine 0.81 (0.5-1.4) mg/dL Estim Creat Clear Calc 50.9 Estimated GFR > 60 Random Glucose 188 H (60-115) mg/dL Lactic Acid (0.5-2.0) mmol/L Calcium 9.1 (8.4-10.2) mg/dL Magnesium 1.6 (1.6-2.6) mg/dL Total Bilirubin 0.4 (0.0-1.0) mg/dL Direct Bilirubin 0.2 (0.0-0.5) mg/dL AST 15 D (5-31) U/L ALT 24 (0-31) U/L Alkaline Phosphatase 57 (39-117) U/L Troponin I High Sens (<3.5-17.0) ng/L B-Natriuretic Peptide 62 (<100) pg/mL Total Protein 7.0 (6.5-8.0) g/dL Albumin 4.3 (3.5-5.0) g/dL COVID-19 (ALEXANDRA) (Negative) COVID-19 Clin Com 07/15/22 07/15/22 07/15/22 Range/Units 11:11 11:11 11:11 WBC (4.8-10.8) X10*3/uL RBC (4.20-5.50) X10*6/uL Hgb (12.0-16.0) g/dl Hct (37.0-47.0) % MCV (80.0-98.0) fL MCH (27.0-33.0) pg MCHC (31.0-35.0) g/dl RDW (11.0-16.0) % Plt Count (160-400) X10*3/uL MPV (9.4-12.3) fL Immature Gran % (Auto) (0.0-0.4) % Neut % (Auto) (45-73) % Lymph % (Auto) (20-40) % [place] % (Auto) (2-11) % Eos % (Auto) (0-4) % Baso % (Auto) (0-2) % Lymph # (Auto) (1.2-4.9) X10*3/uL [place] # (Auto) (0.1-1.2) X10*3/uL Eos # (Auto) (0.0-0.4) X10*3/uL Baso # (Auto) (0.0-0.2) X10*3/uL Abs Immat Gran (auto) (0.00-0.03) X10*3/uL Absolute Neuts (auto) (2.0-8.3) x10*3/uL Absolute Nucleated RBC (0.0-0.012) X10*3/uL Nucleated RBC % (auto) (0.0-0.2) /100WBC PT 14.9 H (10.0-13.1) SEC INR 1.3 H (0.9-1.1) VBG pH (7.32-7.43) VBG pCO2 mmHg VBG pO2 mmHg VBG HCO3 (22-26) mmol/L VBG O2 Saturation % VBG Base Excess mmol/L Sodium (135-145) mmol/L Potassium (3.3-5.1) mmol/L Chloride (96-108) mmol/L Carbon Dioxide (22-29) mmol/L Anion Gap (12-20) BUN (9-16) mg/dL Creatinine (0.5-1.4) mg/dL Estim Creat Clear Calc Estimated GFR Random Glucose (60-115) mg/dL Lactic Acid 3.0 H* (0.5-2.0) mmol/L Calcium (8.4-10.2) mg/dL Magnesium (1.6-2.6) mg/dL Total Bilirubin (0.0-1.0) mg/dL Direct Bilirubin (0.0-0.5) mg/dL AST (5-31) U/L ALT (0-31) U/L Alkaline Phosphatase (39-117) U/L Troponin I High Sens 23.5 H (<3.5-17.0) ng/L B-Natriuretic Peptide (<100) pg/mL Total Protein (6.5-8.0) g/dL Albumin (3.5-5.0) g/dL COVID-19 (ALEXANDRA) (Negative) COVID-19 Clin Com 07/15/22 07/15/22 Range/Units 11:11 11:17 WBC (4.8-10.8) X10*3/uL RBC (4.20-5.50) X10*6/uL Hgb (12.0-16.0) g/dl Hct (37.0-47.0) % MCV (80.0-98.0) fL MCH (27.0-33.0) pg MCHC (31.0-35.0) g/dl RDW (11.0-16.0) % Plt Count (160-400) X10*3/uL MPV (9.4-12.3) fL Immature Gran % (Auto) (0.0-0.4) % Neut % (Auto) (45-73) % Lymph % (Auto) (20-40) % [place] % (Auto) (2-11) % Eos % (Auto) (0-4) % Baso % (Auto) (0-2) % Lymph # (Auto) (1.2-4.9) X10*3/uL [place] # (Auto) (0.1-1.2) X10*3/uL Eos # (Auto) (0.0-0.4) X10*3/uL Baso # (Auto) (0.0-0.2) X10*3/uL Abs Immat Gran (auto) (0.00-0.03) X10*3/uL Absolute Neuts (auto) (2.0-8.3) x10*3/uL Absolute Nucleated RBC (0.0-0.012) X10*3/uL Nucleated RBC % (auto) (0.0-0.2) /100WBC PT (10.0-13.1) SEC INR (0.9-1.1) VBG pH 7.36 (7.32-7.43) VBG pCO2 39 mmHg VBG pO2 46 mmHg VBG HCO3 22 (22-26) mmol/L VBG O2 Saturation 71.0 % VBG Base Excess -2.6 mmol/L Sodium (135-145) mmol/L Potassium (3.3-5.1) mmol/L Chloride (96-108) mmol/L Carbon Dioxide (22-29) mmol/L Anion Gap (12-20) BUN (9-16) mg/dL Creatinine (0.5-1.4) mg/dL Estim Creat Clear Calc Estimated GFR Random Glucose (60-115) mg/dL Lactic Acid (0.5-2.0) mmol/L Calcium (8.4-10.2) mg/dL Magnesium (1.6-2.6) mg/dL Total Bilirubin (0.0-1.0) mg/dL Direct Bilirubin (0.0-0.5) mg/dL AST (5-31) U/L ALT (0-31) U/L Alkaline Phosphatase (39-117) U/L Troponin I High Sens (<3.5-17.0) ng/L B-Natriuretic Peptide (<100) pg/mL Total Protein (6.5-8.0) g/dL Albumin (3.5-5.0) g/dL COVID-19 (ALEXANDRA) Negative (Negative) COVID-19 Clin Com See Note ECG Data Attestation: I personally reviewed and interpreted this ECG as follows: ECG interpretation date: 07/15/22 ECG interpretation time: 11:30 Interpretation: Rate: 93 Rhythm: atiral sensed paced rhythm [place]: normal widened QRS ST T wave : no MARGY, nonspecific qTC: prolonged prior studies: unchanged from prior The study has been interpreted contemporaneously by me. . Discharge Plan Discharge Clinical Impression: COPD exacerbation, Acidosis, lactic Patient Disposition: Admitted As Inpatient Prescriptions: No Action fluticasone propionate 50 mcg/actuation spray,suspension 1 spray intranasal DAILY Qty: 48 3RF gabapentin 100 mg capsule 300 mg PO BID 90 Days Qty: 540 1RF docusate sodium 100 mg capsule 100 mg PO BID 90 Days Qty: 180 3RF calcium carbonate-vitamin D3 600 mg(1,500mg) -400 unit tablet 1 tab PO BID 90 Days Qty: 180 2RF diphenhydramine HCl [Banophen] 25 mg capsule 25 mg PO Q6H PRN (Reason: allergic reaction) Qty: 90 5RF lancets [OneTouch UltraSoft Lancets] Misc 1 ea miscellaneous TID 90 Days Qty: 300 3RF Glucerna Liquid 1 ea PO TID 90 Days Qty: 360 0RF oajharduhz-xuowplwsuanve-hlgh 50-325-40 mg tablet 1 tab PO Q8H PRN (Reason: Back Pain) Qty: 14 0RF (DME) blood sugar diagnostic Strip See Rx Instructions .ROUTE .MEDSUPPLY Qty: 100 3RF Rx Instructions: As directed check the blood sugar once a day (DME) Glucerna See Rx Instructions .Route .MEDSUPPLY Qty: 90 11RF Rx Instructions: As directed Spiriva with HandiHaler 18 mcg capsule, w/inhalation device 1 cap inhalation DAILY Qty: 90 3RF atorvastatin 40 mg tablet 40 mg PO DAILY Qty: 90 2RF omeprazole 40 mg capsule,delayed release(DR/EC) 40 mg PO DAILY Qty: 90 2RF nitroglycerin 0.4 mg tablet, sublingual 0.4 mg sublingual Q5M PRN (Reason: chest pain) Qty: 20 0RF Rx Instructions: do not exceed 3 doses per episode metoprolol succinate 200 mg tablet extended release 24 hr 200 mg PO DAILY Qty: 90 3RF losartan 25 mg tablet 25 mg PO DAILY Qty: 90 3RF carbamazepine 200 mg tablet 200 mg PO DAILY 90 Days Qty: 90 2RF Arnuity Ellipta 200 mcg/actuation blister with device 1 inh inhalation DAILY Qty: 30 11RF Ensure Liquid 1 ea PO TIDWMEAL 30 Days Qty: 90 11RF ipratropium-albuterol 0.5 mg-3 mg(2.5 mg base)/3 mL solution for nebulization 3 ml inhalation Q4-6H PRN (Reason: wheezing) 30 Days Qty: 180 3RF ferrous gluconate 324 mg (37.5 mg iron) tablet 324 mg PO DAILY Qty: 90 3RF Eliquis 5 mg Tablet 5 mg PO BID Qty: 60 4RF amiodarone 100 mg tablet 100 mg PO DAILY Qty: 90 1RF albuterol sulfate 90 mcg/actuation HFA aerosol inhaler 2 puff inhalation Q4H Qty: 8.5 1RF clotrimazole-betamethasone 1-0.05 % cream 1 appl topical BID Qty: 45 0RF metformin 500 mg tablet extended release 24 hr 500 mg PO BID Qty: 180 2RF benzonatate 100 mg capsule 100 mg PO BID PRN (Reason: cough) 5 Days Qty: 10 0RF montelukast 10 mg tablet 10 mg PO BEDTIME Qty: 90 3RF Magic Mouthwash Diphen/Lido/Antacid 1:1:1 240 mL Suspension 10 ml PO QID Qty: 240 4RF Rx Instructions: Lidocaine Viscous 2 % 80mL; diphenhydramine 12.5 mg/5 mL 80mL; aluminum-mag hydrox-simeth [id number]/5mL 80mL amitriptyline 25 mg tablet 1 tab PO BEDTIME loperamide [Imodium A-D] 2 mg Capsule 2 mg PO Q4H PRN (Reason: Diarrhea) Qty: 60 3RF Rx Instructions: administer after each loose stool until symptoms controlled; do not exceed 8 mg per 24 hrs ondansetron HCl 4 mg tablet 8 mg PO Q8H Qty: 60 6RF megestrol 625 mg/5 mL (125 mg/mL) Suspension 5 ml PO QAM Qty: 250 0RF morphine [MS Contin] 30 mg Tablet Extended Release 30 mg PO Q12H Qty: 60 0RF oxycodone 5 mg Tablet 5 mg PO Q6H PRN (Reason: Breakthrough Pain, Moderate) Qty: 60 0RF tretinoin 0.1 % cream 1 appl topical BEDTIME Qty: 45 0RF sennosides-docusate sodium [Senna-S] 8.6-50 mg tablet 2 tab-cap PO BEDTIME Qty: 60 0RF (DME) Aeroneb Go Nebulizer Misc See Rx Instructions .Route Qty: 1 0RF Rx Instructions: As directed albuterol sulfate 2.5 mg /3 mL (0.083 %) solution for nebulization 2.5 mg inhalation Q4-6H PRN (Reason: shortness of breath or wheezing) 30 Days Qty: 180 4RF Lubricant Eye (PG-PEG 400) 0.4-0.3 % drops 2 drp ophthalmic (eye) BID-QID PRN (Reason: dry eye(s)) Qty: 15 0RF (DME) blood sugar diagnostic Strip See Rx Instructions .ROUTE .MEDSUPPLY Qty: 200 3RF Rx Instructions: As directed check the blood sugar twice a day alprazolam 0.25 mg tablet 0.25 mg PO BID 30 Days Qty: 60 2RF prednisone 10 mg tablet See Rx Instructions PO DAILY Qty: 20 0RF Rx Instructions: 4 tabs QD x 2 days then 3 tabs QD x 2 days then 2 tabs Qd x 2 days then 1 tab QD x 2 days PO daily; multivitamin with folic acid [Daily-Eve (with folic acid)] 400 mcg tablet 1 tab PO BEDTIME
[2022-07-15] MEDS: methylPREDNISolone Sod Succ 125 MG/2 ML VIAL IVPUSH (11:12)
[2022-07-15] MEDS: cefTRIAXone sodium 1 GM in 0.9 % Sodium Chloride 50 ML IV (11:12)
[2022-07-15 11:23] LABS: VBG Base Excess -2.6 mmol/L; VBG HCO3 22 mmol/L (22-26); VBG pCO2 39 mmHg; VBG pH 7.36 (7.32-7.43); VBG pO2 46 mmHg
[2022-07-15 11:24] LABS: MANUAL DIFF FLAG NO
[2022-07-15 11:32] LABS: Venous Blood Gas Refer to POC result
[2022-07-15 11:37] LABS: COVID-19 Test Negative (Negative)
[2022-07-15 11:40] LABS: Basophils Percent Auto 0.2 % (0-2); Eosinophils Percent Auto 0.7 % (0-4); Hematocrit 32.2 % (37.0-47.0); Hemoglobin 10.4 g/dl (12.0-16.0); Imm Gran Abs Auto 0.06 X10*3/uL (0.00-0.03); Imm Gran Pct Auto 1.3 % (0.0-0.4); Lymphocytes Absolute Auto 0.8 X10*3/uL (1.2-4.9); Lymphocytes Percent Auto 18.8 % (20-40); Mean Corpuscular HGB Conc 32.3 g/dl (31.0-35.0); Mean Corpuscular Hemoglobin 30.4 pg (27.0-33.0); Mean Corpuscular Volume 94.2 fL (80.0-98.0); Mean Platelet Volume 10.5 fL (9.4-12.3); Monocytes Absolute Auto 0.1 X10*3/uL (0.1-1.2); Monocytes Percent Auto 2.9 % (2-11); Neutrophils Absolute Auto 3.4 x10*3/uL (2.0-8.3); Neutrophils Percent Auto 76.1 % (45-73); Platelet Count 102 X10*3/uL (160-400); Red Blood Count 3.42 X10*6/uL (4.20-5.50); Red Cell Distribution Width 14.6 % (11.0-16.0); White Blood Count 4.5 X10*3/uL (4.8-10.8)
[2022-07-15 11:44] LABS: Alanine Aminotransferase 24 U/L (0-31); Albumin Level 4.3 g/dL (3.5-5.0); Alkaline Phosphatase 57 U/L (39-117); Anion Gap 15 (12-20); Aspartate Amino Transferase 15 U/L (5-31); Bilirubin Direct 0.2 mg/dL (0.0-0.5); Bilirubin Total 0.4 mg/dL (0.0-1.0); Blood Urea Nitrogen 21 mg/dL (9-16); Calcium 9.1 mg/dL (8.4-10.2); Carbon Dioxide 23 mmol/L (22-29); Chloride 105 mmol/L (96-108); Creatinine Clr Calc Pharmacy 50.9; Estimated Glomerular Filt Rate > 60; Glucose Random 188 mg/dL (60-115); Magnesium 1.6 mg/dL (1.6-2.6); Potassium 3.6 mmol/L (3.3-5.1); Sodium 139 mmol/L (135-145)
[2022-07-15 11:46] LABS: INTERNATIONAL NORM RATIO 1.3 (0.9-1.1); Prothrombin Time 14.9 SEC (10.0-13.1)
[2022-07-15 11:47] LABS: B Type Natriuretic Peptide 62 pg/mL (<100)
[2022-07-15] MEDS: Doxycycline Hyclate 100 MG in 0.9 % Sodium Chloride 250 ML 166.67 MG IV (11:52)
[2022-07-15] MEDS: 0.9 % Sodium Chloride 500 ML IV (11:52)
[2022-07-15 11:53] LABS: Troponin-I High Sensitivity 23.5 ng/L (<3.5-17.0)
[2022-07-15 13:20] LABS: Reflex Lactate? Lactic Acid Added
[2022-07-15] MEDS: Albuterol Sulfate (0.083%) 2.5 MG/3 ML VIAL.NEB INHALE (13:24)
--- NOTE | 2022-07-15 14:30 | PHA.MEDREC ---
Pharmacy Consult ? Medication Reconciliation Pharmacy has completed the medication reconciliation. Patient unsure of medication names. Not sure if patient should still be taking losartan. Doesnt seem like it stopped per any md notes. will let rph know to inform physician
[2022-07-15 14:44] LABS: ~Lactic Acid-LAB USE ONLY 1.4 mmol/L (0.5-2.0)
--- NOTE | 2022-07-15 15:07 | PM.EVENT ---
Event Note Date of Service: 07/15/22 Event Note: admission note Date of service 07/15/2022 the patient was seen and evaluated with Eliza Almendarez NP. I agree with her note, assessment and plan with the following. Acute CO{D\asthma exacerbation Bronchodilator nebs, IV steroids, Azithromycin wean O2 down as tolerated Rest of evaluations by NOVELTY [employer] note.
--- NOTE | 2022-07-15 16:35 | PM.IMHP ---
History of Present Illness Date of Service: 07/15/22 Attending physician on admission: Teresa Garcia Chief Complaint: copd exacerbation 71 yo egyptian speaking female hx of COPD, cardiomyopathy with ICD, DM, CAD, HTN, HLD, GERD, stage IV pancreatic cancer currently on gemcitabine / Abraxane , hx of DVT on eliquis presented to the ED this morning with 6 days of worsening sob and wheezing. She was treated with 8 day prednisone taper earlier this month for COPD exacerbation which did help symptoms but they recurred shortly after course was completed. Has been using albuterol nebulizer 3 times daily with limited effect. Reports pleuritic cp, sob, wheezing. Denies recent illness. No fevers, rigors, cough. On arrival, mildly tachypneic rr 24 with hr 92. Subsequent lactic acid elevated at 3.0 followign multiple albuterol administrations and also on metformin. Received IV vibramycin, ceftriaxone, and duoneb/alb updrafts in ED. O2 sats 97% on RA, No hypoxia. Blood gases normal. CXR negative for acute pathology. Seen and examined with egyptian interpretor and with son, Eliot, present Review of Systems Review of Systems: General: No fevers, malaise, unintentional weight loss HEENT: No rhinorrhea, PND, sore throat Cardiovascular: +pleuritic chest pain. No chest pressure, palpitations, or leg edema Respiratory: + shortness of breath, wheezing. No cough GI: No abdominal pain, nausea, vomiting, diarrhea, constipation, melena, hematochezia Neuro: No headaches, weakness, paresthesias Skin: No rashes or lesions [facility] Medical History Anxiety and depression Biventricular ICD (implantable cardioverter-defibrillator) in place Cardiomyopathy Congestive heart failure COPD (chronic obstructive pulmonary disease) Coronary artery disease Current use of anticoagulant therapy CVA (cerebral vascular accident) Diverticulitis Esophageal hernia GERD (gastroesophageal reflux disease) History of renal calculi HTN (hypertension) Hypercholesterolemia Hyponatremia Osteopenia Type 2 diabetes mellitus with hyperglycemia Umbilical hernia Family History Father Medical history unknown Mother Diabetes Hypertension Surgical History History of hemicolectomy History of incisional hernia repair History of pacemaker Social History Household Members: Family Housing: House Are you a primary childcare provider to a significant other at home: No Do you presently have visiting nurse or other home services: No Alcohol intake: never Patient Tobacco Use Status: Never used Tobacco e-Cigarette/Vaping Use: Never Used Second Hand Smoke Exposure: No Use of substances other than those prescribed or required for medical reasons: No Advance Directives: Yes Advance Directives on File: Yes Advance Directives Date on File: 02/17/22 service: No Current occupational status: retired Cognitive needs: No Vision needs: Yes Meds Allergies Allergy/AdvReac Type Severity Reaction Status Date / Time No Known Allergies Allergy Verified 06/25/22 09:42 Active Medications: Current Medications Pharmacy Consult (Consult Rx Perform Med Rec) 1 each MISCELLANE ONCE PRN PRN Reason: Consult order Home Medications Medication Instructions Recorded Confirmed Last Taken Type multivitamin with folic acid 400 1 tab PO BEDTIME 07/21/21 07/15/22 Unknown History mcg tablet (Daily-Eve (with folic acid)) budesonide-formoterol HFA 160 1 inh PO BID 07/15/22 07/15/22 Unknown History mcg-4.5 mcg/actuation aerosol inhaler (Symbicort) losartan 25 mg tablet 1 tab DAILY 07/15/22 Unknown History ondansetron HCl 4 mg tablet 8 mg PO Q8H PRN Nausea 07/15/22 07/15/22 Unknown History Physical Exam Vital Signs and Narrative: Vital Signs: Last Vital Signs Temp 99.0 F 07/15/22 14:51 Pulse 95 07/15/22 14:51 Resp 13 07/15/22 14:51 BP 135/58 L 07/15/22 14:51 Pulse Ox 98 07/15/22 14:51 O2 Del Method 07/15/22 14:51 BMI result Body Mass Index 25.2 Constitutional - Awake and Alert, No apparent distress Eyes - PERRLA, EOMI Cardiovascular - S1S2, RRR, No edema Respiratory - Somewhat coarse breath sounds with bilateral scattered wheezes. Normal lung expansion, Normal respiratory effort, No respiratory distress Gastrointestinal - NT / ND; +BS; No rebound or guarding Extremities - no calf tenderness bilaterally, no swelling Skin - Warm/Dry Neurological - Alert & oriented x3, No focal deficit Psychological - Appropriate affect Results Labs CBC and Chem 7: 07/15/22 11:11 07/15/22 11:11 Labs: Laboratory Results - last 24 hr 07/15/22 07/15/22 07/15/22 11:11 11:11 11:11 MCV 94.2 MCH 30.4 MCHC 32.3 RDW 14.6 Plt Count 102 L D MPV 10.5 Immature Gran % (Auto) 1.3 H Neut % (Auto) 76.1 H Lymph % (Auto) 18.8 L [place] % (Auto) 2.9 Eos % (Auto) 0.7 Baso % (Auto) 0.2 Lymph # (Auto) 0.8 L [place] # (Auto) 0.1 Eos # (Auto) 0.0 Baso # (Auto) 0.0 Abs Immat Gran (auto) 0.06 H Absolute Neuts (auto) 3.4 Absolute Nucleated RBC 0.000 Nucleated RBC % (auto) 0.0 PT INR VBG pH VBG pCO2 VBG pO2 VBG HCO3 VBG O2 Saturation VBG Base Excess Anion Gap 15 Estim Creat Clear Calc 50.9 Estimated GFR > 60 Random Glucose 188 H Lactic Acid Lactic Acid F/U @ 2Hr Calcium 9.1 Magnesium 1.6 Total Bilirubin 0.4 Direct Bilirubin 0.2 AST 15 D ALT 24 Alkaline Phosphatase 57 B-Natriuretic Peptide 62 Total Protein 7.0 Albumin 4.3 COVID-19 ([facility]) COVID-19 Clin Com 07/15/22 07/15/22 07/15/22 11:11 11:11 11:11 MCV MCH MCHC RDW Plt Count MPV Immature Gran % (Auto) Neut % (Auto) Lymph % (Auto) [place] % (Auto) Eos % (Auto) Baso % (Auto) Lymph # (Auto) [place] # (Auto) Eos # (Auto) Baso # (Auto) Abs Immat Gran (auto) Absolute Neuts (auto) Absolute Nucleated RBC Nucleated RBC % (auto) PT 14.9 H INR 1.3 H VBG pH VBG pCO2 VBG pO2 VBG HCO3 VBG O2 Saturation VBG Base Excess Anion Gap Estim Creat Clear Calc Estimated GFR Random Glucose Lactic Acid 3.0 H* Lactic Acid F/U @ 2Hr Calcium Magnesium Total Bilirubin Direct Bilirubin AST ALT Alkaline Phosphatase B-Natriuretic Peptide Total Protein Albumin COVID-19 (ALEXANDRA) Negative COVID-19 [employer] Com See Note 07/15/22 07/15/22 11:17 14:28 MCV MCH MCHC RDW Plt Count MPV Immature Gran % (Auto) Neut % (Auto) Lymph % (Auto) [place] % (Auto) Eos % (Auto) Baso % (Auto) Lymph # (Auto) [place] # (Auto) Eos # (Auto) Baso # (Auto) Abs Immat Gran (auto) Absolute Neuts (auto) Absolute Nucleated RBC Nucleated RBC % (auto) PT INR VBG pH 7.36 VBG pCO2 39 VBG pO2 46 VBG HCO3 22 VBG O2 Saturation 71.0 VBG Base Excess -2.6 Anion Gap Estim Creat Clear Calc Estimated GFR Random Glucose Lactic Acid Lactic Acid F/U @ 2Hr 1.4 Calcium Magnesium Total Bilirubin Direct Bilirubin AST ALT Alkaline Phosphatase B-Natriuretic Peptide Total Protein Albumin COVID-19 (ALEXANDRA) COVID-19 Clin Com Imaging Radiologist's Impressions: Impressions Chest X-Ray 07/15/22 11:45 IMPRESSION: No acute pulmonary pathology. Assessment and Plan (1) COPD exacerbation: Status: Acute Plan 71 yo female hx of COPD, cardiomyopathy with ICD, DM, CAD, HTN, HLD, GERD, stage IV pancreatic cancer currently on gemcitabine / Abraxane , hx of DVT on eliquis to be observed overnight for mild COPD exacerbation. 1- COPD exacerbation- recently treated outpt with oral steroids with recurrence of symptoms -CXR negative fpr pneumonia. No suspected infection, received empiric ceftriaxone and vibramycin in ED. No further abx indicated given mild exacerbation. -Elevated lactic acid of 3.0 likely related to albuterol administrations and metformin, no severe sepsis -Received IV solumedrol in ed. Continue 40mg prednisone for mild exacerbation -Duoned/albuterol prn -Continue daily maintenance inhalers 2-CAD/cardiomyopathy with ICD- stable -Continue amiodorone, metoprolol -Continue atorvastatin -Will continue following with cardiology ([facility]) outpatient 3-Non insulin-depedent type 2 diabetes- controlled per patient -Continue metformin -POC glucose -Diabetic diet 4-HTN- controlled -Continue metoprolol 5-GERD- controlled -continue omeprazole 6- Stave IV pancreatic cancer on gemcitabine / Abraxane, last dose 8/20 -Will continue following outpt with Dr. Cifuentes in oncology -Continue home MS lynch for diffuse pain r/t cancer prn -Ondansetron prn nausea 7- History DVT- continue eliquis DVT prophylaxis- on eliquis Full code. Son, who is present during interview is healthcare proxy Quality Stroke Does the patient have a stroke diagnosis?: No VTE Prior VTE?: No VTE Risk Level:: Medical - moderate - high VTE Device Contraindication: Treatment Not Indicated VTE Drug Contraindication: N/A - Med Ordered
[2022-07-15] MEDS: Morphine Sulfate ER 30 MG TABLET.ER PO (17:13)
[2022-07-15] MEDS: Albuterol Sulfate 90 MCG 8 GM INHALER 2 PUFF INHALE (20:04)
[2022-07-15] MEDS: Apixaban 5 MG TABLET PO (22:03)
[2022-07-15] MEDS: Sennosides/Docusate Sodium TABLET 2 TAB PO (22:03)
[2022-07-15] MEDS: Docusate Sodium 100 MG CAPSULE PO (22:04)
[2022-07-15] MEDS: Montelukast Sodium 10 MG TABLET PO (22:04)
[2022-07-15] MEDS: Multivitamin TABLET 1 TAB PO (22:04)
[2022-07-15] MEDS: metFORMIN HCl ER 500 MG TAB.ER.24H PO (22:04)
[2022-07-15] MEDS: ALPRAZolam 0.25 MG TABLET PO (22:04)
[2022-07-15 22:12] LABS: Glucose, Whole Blood 341 mg/dL (60-115)
[2022-07-15] MEDS: oxyCODONE HCl Immed Release 5 MG TABLET PO (22:19)
[2022-07-16] MEDS: Morphine Sulfate ER 30 MG TABLET.ER PO (06:00)
[2022-07-16 08:18] VITALS: BP 152/63; PULSE 77; RESP 18; O2SAT 98
[2022-07-16] MEDS: Albuterol Sulfate 90 MCG 8 GM INHALER 2 PUFF INHALE ×2 (09:18→12:44)
[2022-07-16 09:20] VITALS: PULSE 77; RESP 16; O2SAT 96
[2022-07-16] MEDS: Omeprazole 40 MG CAPSULE.DR PO (09:47)
[2022-07-16] MEDS: Metoprolol Succinate ER 100 MG TAB.ER.24H 200 MG PO (09:48)
[2022-07-16] MEDS: Atorvastatin Calcium 40 MG TABLET PO (09:48)
[2022-07-16] MEDS: Ferrous Sulfate 324 MG TABLET.DR PO (09:49)
[2022-07-16] MEDS: ALPRAZolam 0.25 MG TABLET PO (09:49)
[2022-07-16] MEDS: Apixaban 5 MG TABLET PO (09:49)
[2022-07-16] MEDS: predniSONE 20 MG TABLET 40 MG PO (09:49)
[2022-07-16] MEDS: Amiodarone HCL 200 MG TABLET 100 MG PO (09:50)
[2022-07-16] MEDS: metFORMIN HCl ER 500 MG TAB.ER.24H PO (09:50)
--- NOTE | 2022-07-16 11:23 | PM.DS ---
DS: Providers Provider Date of Service: 07/16/22 Date of admission: 07/15/22 16:28 Date of discharge: 07/16/22 Primary care physician: Malika Mayer MD Admitting clinician: Teresa Garcia Attending physician on discharge: Abdoul Johnson Discharging clinician: Eliza Almendarez DS: Diagnosis Discharge Diagnosis (1) COPD exacerbation: Status: Acute DS: Summary Hospital Course Hospital Course: HPI on admission: 71 yo v[place] citizen speaking female hx of COPD, cardiomyopathy with ICD, DM, CAD, HTN, HLD, GERD, stage IV pancreatic cancer currently on gemcitabine / Abraxane , hx of DVT on eliquis presented to the ED this morning with 6 days of worsening sob and wheezing. She was treated with 8 day prednisone taper earlier this month for COPD exacerbation which did help symptoms but they recurred shortly after course was completed. Has been using albuterol nebulizer 3 times daily with limited effect. Reports pleuritic cp, sob, wheezing. Denies recent illness. No fevers, rigors, cough. On arrival, mildly tachypneic rr 24 with hr 92. Subsequent lactic acid elevated at 3.0 followign multiple albuterol administrations and also on metformin. Received IV vibramycin, ceftriaxone, and duoneb/alb updrafts in ED. O2 sats 97% on RA, No hypoxia. Blood gases normal. CXR negative for acute pathology. Seen and examined with vatican citizen interpretor and with son, Eliot, present Hospital Course: Patient observed overnight for mild COPD exacerbation with recurrence of exacerbation following recent outpt treatment with oral steroids. Stay was uneventful. There was no hypoxia. Maintained O2 sats 93-100% on RA. Mild tachypnea with rr of 24 on arrival resolved following IV solumedrol and albuterol and duoneb treatments. She did receive a dose of ceftriaxone and azithromycin. CXR negative for pneumonia. No productive cough. Exacerbation felt to be mild and futher antibiotic therapy not indicated. She is discharged with 5 days prednisone 40mg and should follow up soon with PCP to prevent recurrent exacerbations. Continue maintencance inhalers and albuterol/duoneb as needed. Time Spent with Patient Time attestation: Total time spent providing and/or coordinating discharge services: Discharge coordination time: Greater than 30 minutes Quality: Safe Use of Opioids Does Pt have an Active Cancer Diagnosis on the Problem List?: Yes Opioid Measure Date for [facility] Report: 06/16/22 Opioid Measure Time for [facility] Report: 14:54 Quality: Stroke Does the patient have a stroke diagnosis?: No Physical Exam Vital Signs: Vital Signs: Last Vital Signs Temp 98.1 F 07/15/22 23:17 Pulse 77 07/16/22 09:20 Resp 16 07/16/22 09:20 BP 152/63 H 07/16/22 08:18 Pulse Ox 98 07/16/22 08:18 O2 Del Method 07/16/22 08:18 BMI result Body Mass Index 25.2 Constitutional - Awake and Alert, No apparent distress Eyes - PERRLA, EOMI Cardiovascular - S1S2, RRR, No edema Respiratory - Scattered wheezes bilaterally. Normal lung expansion, Normal respiratory effort, No respiratory distress Extremities - no calf tenderness bilaterally, no swelling Skin - Warm/Dry Neurological - Alert & oriented x3, No focal deficit Psychological - Appropriate affect DS: Data Data Completed and Pending Completed studies during hospitalization [Text1]: Procedures Introduction of Remdesivir Anti-infective into Peripheral Vein, Percutaneous Approach, [employer] 5 (12/17/20) Labs on day of discharge: Laboratory Results - last 24 hr 07/15/22 07/15/22 07/15/22 11:11 11:11 11:11 WBC 4.5 L RBC 3.42 L Hgb 10.4 L Hct 32.2 L MCV 94.2 MCH 30.4 MCHC 32.3 RDW 14.6 Plt Count 102 L D MPV 10.5 Immature Gran % (Auto) 1.3 H Neut % (Auto) 76.1 H Lymph % (Auto) 18.8 L [place] % (Auto) 2.9 Eos % (Auto) 0.7 Baso % (Auto) 0.2 Lymph # (Auto) 0.8 L [place] # (Auto) 0.1 Eos # (Auto) 0.0 Baso # (Auto) 0.0 Abs Immat Gran (auto) 0.06 H Absolute Neuts (auto) 3.4 Absolute Nucleated RBC 0.000 Nucleated RBC % (auto) 0.0 PT INR VBG pH VBG pCO2 VBG pO2 VBG HCO3 VBG O2 Saturation VBG Base Excess Sodium 139 Potassium 3.6 Chloride 105 Carbon Dioxide 23 Anion Gap 15 BUN 21 H Creatinine 0.81 Estim Creat Clear Calc 50.9 Estimated GFR > 60 POC Glucose Random Glucose 188 H Lactic Acid Lactic Acid F/U @ 2Hr Calcium 9.1 Magnesium 1.6 Total Bilirubin 0.4 Direct Bilirubin 0.2 AST 15 D ALT 24 Alkaline Phosphatase 57 Troponin I High Sens B-Natriuretic Peptide 62 Total Protein 7.0 Albumin 4.3 COVID-19 (ALEXANDRA) COVID-19 Clin Com 07/15/22 07/15/22 07/15/22 11:11 11:11 11:11 WBC RBC Hgb Hct MCV MCH MCHC RDW Plt Count MPV Immature Gran % (Auto) Neut % (Auto) Lymph % (Auto) [place] % (Auto) Eos % (Auto) Baso % (Auto) Lymph # (Auto) [place] # (Auto) Eos # (Auto) Baso # (Auto) Abs Immat Gran (auto) Absolute Neuts (auto) Absolute Nucleated RBC Nucleated RBC % (auto) PT 14.9 H INR 1.3 H VBG pH VBG pCO2 VBG pO2 VBG HCO3 VBG O2 Saturation VBG Base Excess Sodium Potassium Chloride Carbon Dioxide Anion Gap BUN Creatinine Estim Creat Clear Calc Estimated GFR POC Glucose Random Glucose Lactic Acid 3.0 H* Lactic Acid F/U @ 2Hr Calcium Magnesium Total Bilirubin Direct Bilirubin AST ALT Alkaline Phosphatase Troponin I High Sens 23.5 H B-Natriuretic Peptide Total Protein Albumin COVID-19 (ALEXANDRA) COVID-19 Clin Com 07/15/22 07/15/22 07/15/22 11:11 11:17 14:28 WBC RBC Hgb Hct MCV MCH MCHC RDW Plt Count MPV Immature Gran % (Auto) Neut % (Auto) Lymph % (Auto) [place] % (Auto) Eos % (Auto) Baso % (Auto) Lymph # (Auto) [place] # (Auto) Eos # (Auto) Baso # (Auto) Abs Immat Gran (auto) Absolute Neuts (auto) Absolute Nucleated RBC Nucleated RBC % (auto) PT INR VBG pH 7.36 VBG pCO2 39 VBG pO2 46 VBG HCO3 22 VBG O2 Saturation 71.0 VBG Base Excess -2.6 Sodium Potassium Chloride Carbon Dioxide Anion Gap BUN Creatinine Estim Creat Clear Calc Estimated GFR POC Glucose Random Glucose Lactic Acid Lactic Acid F/U @ 2Hr 1.4 Calcium Magnesium Total Bilirubin Direct Bilirubin AST ALT Alkaline Phosphatase Troponin I High Sens B-Natriuretic Peptide Total Protein Albumin COVID-19 (ALEXANDRA) Negative COVID-19 Clin Com See Note 07/15/22 22:02 WBC RBC Hgb Hct MCV MCH MCHC RDW Plt Count MPV Immature Gran % (Auto) Neut % (Auto) Lymph % (Auto) [place] % (Auto) Eos % (Auto) Baso % (Auto) Lymph # (Auto) [place] # (Auto) Eos # (Auto) Baso # (Auto) Abs Immat Gran (auto) Absolute Neuts (auto) Absolute Nucleated RBC Nucleated RBC % (auto) PT INR VBG pH VBG pCO2 VBG pO2 VBG HCO3 VBG O2 Saturation VBG Base Excess Sodium Potassium Chloride Carbon Dioxide Anion Gap BUN Creatinine Estim Creat Clear Calc Estimated GFR POC Glucose 341 H Random Glucose Lactic Acid Lactic Acid F/U @ 2Hr Calcium Magnesium Total Bilirubin Direct Bilirubin AST ALT Alkaline Phosphatase Troponin I High Sens B-Natriuretic Peptide Total Protein Albumin COVID-19 (ALEXANDRA) COVID-19 Clin Com Discharge Plan Discharge Patient Disposition: Home, Self-Care Discharge Diagnosis: acute copd exacerbation Referrals: Po,Malika Steven MD [Primary Care Provider] - 1 Week Discharge Medications: New prednisone 20 mg Tablet 40 mg PO DAILY Qty: 10 0RF Continued docusate sodium 100 mg capsule 100 mg PO BID 90 Days Qty: 180 3RF diphenhydramine HCl [Banophen] 25 mg capsule 25 mg PO Q6H PRN (Reason: allergic reaction) Qty: 90 5RF lancets [OneTouch UltraSoft Lancets] Misc 1 ea miscellaneous TID 90 Days Qty: 300 3RF Glucerna Liquid 1 ea PO TID 90 Days Qty: 360 0RF (DME) blood sugar diagnostic Strip See Rx Instructions .ROUTE .MEDSUPPLY Qty: 100 3RF Rx Instructions: As directed check the blood sugar once a day (DME) Glucerna See Rx Instructions .Route .MEDSUPPLY Qty: 90 11RF Rx Instructions: As directed Spiriva with HandiHaler 18 mcg capsule, w/inhalation device 1 cap inhalation DAILY Qty: 90 3RF atorvastatin 40 mg tablet 40 mg PO DAILY Qty: 90 2RF omeprazole 40 mg capsule,delayed release(DR/EC) 40 mg PO DAILY Qty: 90 2RF nitroglycerin 0.4 mg tablet, sublingual 0.4 mg sublingual Q5M PRN (Reason: chest pain) Qty: 20 0RF Rx Instructions: do not exceed 3 doses per episode metoprolol succinate 200 mg tablet extended release 24 hr 200 mg PO DAILY Qty: 90 3RF carbamazepine 200 mg tablet 200 mg PO DAILY 90 Days Qty: 90 2RF Arnuity Ellipta 200 mcg/actuation blister with device 1 inh inhalation DAILY Qty: 30 11RF Ensure Liquid 1 ea PO TIDWMEAL 30 Days Qty: 90 11RF ipratropium-albuterol 0.5 mg-3 mg(2.5 mg base)/3 mL solution for nebulization 3 ml inhalation Q4-6H PRN (Reason: wheezing) 30 Days Qty: 180 3RF ferrous gluconate 324 mg (37.5 mg iron) tablet 324 mg PO DAILY Qty: 90 3RF Eliquis 5 mg Tablet 5 mg PO BID Qty: 60 4RF amiodarone 100 mg tablet 100 mg PO DAILY Qty: 90 1RF albuterol sulfate 90 mcg/actuation HFA aerosol inhaler 2 puff inhalation Q4H Qty: 8.5 1RF metformin 500 mg tablet extended release 24 hr 500 mg PO BID Qty: 180 2RF montelukast 10 mg tablet 10 mg PO BEDTIME Qty: 90 3RF loperamide [Imodium A-D] 2 mg Capsule 2 mg PO Q4H PRN (Reason: Diarrhea) Qty: 60 3RF Rx Instructions: administer after each loose stool until symptoms controlled; do not exceed 8 mg per 24 hrs megestrol 625 mg/5 mL (125 mg/mL) Suspension 5 ml PO QAM Qty: 250 0RF morphine [MS Contin] 30 mg Tablet Extended Release 30 mg PO Q12H Qty: 60 0RF oxycodone 5 mg Tablet 5 mg PO Q6H PRN (Reason: Breakthrough Pain, Moderate) Qty: 60 0RF budesonide-formoterol [Symbicort] 160-4.5 mcg/actuation HFA aerosol inhaler 1 inh PO BID ondansetron HCl 4 mg tablet 8 mg PO Q8H PRN (Reason: Nausea) losartan 25 mg tablet 1 tab DAILY sennosides-docusate sodium [Senna-S] 8.6-50 mg tablet 2 tab-cap PO BEDTIME Qty: 60 0RF (DME) Aeroneb Go Nebulizer Misc See Rx Instructions .Route Qty: 1 0RF Rx Instructions: As directed (DME) blood sugar diagnostic Strip See Rx Instructions .ROUTE .MEDSUPPLY Qty: 200 3RF Rx Instructions: As directed check the blood sugar twice a day alprazolam 0.25 mg tablet 0.25 mg PO BID 30 Days Qty: 60 2RF multivitamin with folic acid [Daily-Eve (with folic acid)] 400 mcg tablet 1 tab PO BEDTIME Diet: Diabetic diet Activity on Discharge: As tolerated Stand Alone Forms: Patient Portal Discharge page Care Plan Goals: Resolve wheezing and shortness of breath Health Concerns: COPD exacerbation Plan of Treatment: Continue oral prednisone 40mg daily x 5 days. Use your daily inhalers as prescribed. Use your albuterol or duoneb as needed for shortness of breath and wheezing. You should follow up soon with Dr. Mayer given your recent exacerbations so your medications can be adjusted so we can prevent future exacerbation of symptoms. Assessment: You came to the hospital with a mild COPD exacerbation. You were treated with IV steroids that were switched to oral steroids and given albuterol nebulizers that helped to improve your breathing. There was no evidence of pneumonia or other infection. We are discharging you with an additional 5 days of prednisone to take daily. You do not need antibiotics since this was a mild exacerbation and there was no infection. One of your labs, the lactic acid, was slightly elevated but this is related to your metformin and albuterol use and is not cause for concern. Patient Instructions: COPD (Chronic Obstructive Pulmonary Disease) ([facility])
[2022-07-16] MEDS: carBAMazepine 200 MG TABLET PO (12:18)
[2022-07-16] MEDS: Megestrol Acetate 400 MG/10 ML ORAL.SUSP 600 MG PO (12:18)
[2022-07-16 12:45] VITALS: PULSE 89; RESP 18; O2SAT 96
--- NOTE | 2022-07-16 13:38 | MHC.CM.PN ---
CM MET WITH PT WITH THE ASSISTANCE OF A DEGREASER PTS GRANDSON WAS ALSO AT BEDSIDE AND PROVIDED ASSISTANCE PT LIVES ALONE AND HAS DAILY [employer] SERVICES PT REPORTS SHE USES A WALKER TO AMBULATE PT REPORTS SHE DID NOT GET THE COVID VACCINES DUE TO MEDICAL CONDITIONS PT HAS A HCP ON FILE PCP: GLENDA OP OBSERVATION NOTICE DELIVERED, COPY SENT TO [facility]DS CURRENT DC PLAN IS HOME WITH RESUMPTION OF [employer] FAMILY TO TRANSPORT
[2022-07-16 15:13] VITALS: BP 135/55; PULSE 82; RESP 19; TEMP 37.1; O2SAT 100
== END 2022-07-16 15:40 | disposition home or self-care (01) ==
LOC: HO.ED 12:30 → HO.EDOVER 16:38
PROVIDERS: Admitting Provider Physician Assistant; Emergency Provider Emergency Medicine; PCP Internal Medicine; Visit Provider Physician Assistant
DX: J44.1 Chronic obstructive pulmonary disease with (acute) exacerbation (principal); E87.2 Acidosis; Z20.822 Contact with and (suspected) exposure to COVID-19; R06.02 Shortness of breath; E11.9 Type 2 diabetes mellitus without complications; I10 Essential (primary) hypertension; E78.00 Pure hypercholesterolemia, unspecified; K21.9 Gastro-esophageal reflux disease without esophagitis; C25.9 Malignant neoplasm of pancreas, unspecified; Z95.810 Presence of automatic (implantable) cardiac defibrillator; Z86.718 Personal history of other venous thrombosis and embolism; Z86.73 Personal history of transient ischemic attack (TIA), and cerebral infarction without residual deficits; Z79.02 Long term (current) use of antithrombotics/antiplatelets; Z79.899 Other long term (current) drug therapy; Z79.01 Long term (current) use of anticoagulants; Z79.84 Long term (current) use of oral hypoglycemic drugs
CPT/HCPCS: 36415; 71045; 80048; 80076; 82803; 82947; 83605; 83735; 83880; 84484; 85025; 85610; 87040; 87635; 93005; 94640; 96361; 96365; 96367; 96375; 99219; 99285; J0696; J2930

== ENCOUNTER 2022-10-06 12:12 | Emergency (ER) | payer OTHER, SELFPAY ==
--- NOTE | ~2022-10-06 | XR_ITS ---
EXAMINATION: XR CHEST CLINICAL INFORMATION: SOB. COMPARISON: None TECHNIQUE: Frontal view of the chest was obtained. FINDINGS: The lungs are well-expanded and clear of acute pneumonic process. There is minimal bibasilar atelectatic changes. Heart size enlarged with normal pulmonary vascularity. There are pacer electrodes in the right atrium and right ventricle. The central venous port catheter tip in the mid SVC. There is a moderate to large hiatal hernia. No gross bony abnormality. XR/XR chest 1V IMPRESSION: 1. Mild cardiomegaly. 2. Minimal bibasilar atelectasis. 3. Moderate to large hiatal hernia.
--- NOTE | 2022-10-06 13:23 | ECG_ITS ---
Test Reason : SOB Blood Pressure : / mmHG Vent. Rate : 079 BPM Atrial Rate : 079 BPM P-R Int : 126 ms QRS Dur : 138 ms QT Int : 448 ms P-R-T Axes : 051 126 091 degrees QTc Int : 513 ms Atrial-sensed ventricular-paced rhythm Abnormal ECG When compared with ECG of 15-JUL-2022 11:15, Vent. rate has decreased BY 14 BPM Referred By: Sue Barrios Electronically Signed By:TROY WEBSTER MD
--- NOTE | 2022-10-06 13:25 | ED_ITS ---
HPI - SOB/Dyspnea General Chief Complaint: General Medical <Sue Barrios MD - Last Filed: 10/06/22 13:29> Stated Complaint: Not Feeling Well S/P Chemo 10/02/22 <Sue Barrios MD - Last Filed: 10/06/22 13:29> Time Seen by Provider: 10/06/22 16:16 <Sue Barrios MD - Last Filed: 10/06/22 13:29> Source: patient <CHINO Lawrence - Last Filed: 10/06/22 19:54> Mode of arrival: ambulatory <CHINO Lawrence - Last Filed: 10/06/22 19:54> Limitations: no limitations <CHINO Lwarence - Last Filed: 10/06/22 19:54> History of Present Illness HPI Narrative: 71 year old female with a PMH of COPD, HTN,CVA, Type 2 diabetes, pancreatic carcinoma, and GERD who presents to the ED c/o of SOB, chest pain, generalized body aches, nausea and decreased PO intake s/p chemotherapy x4 days. She reports seeing Dr Cifuentes as her oncologist. She reports that her symptoms started after her chemo on Wednesday and has been unable to eat , drink or take her medication since the onset of symptoms.She reports associated chills, fever, headache, diarrhea, decreased appetite and back pain She reports presenting similar symptoms after all her chemo sessions and reports she reports not tolerating them well. She denies any vomiting,dizziness, sick contact. <CHINO Lawrence - Last Filed: 10/06/22 19:54> MD elicited complaint: shortness of breath and chest pain <CHINO Lawrence - Last Filed: 10/06/22 19:54> Related Data Home Medications: Home Medications Medication Instructions Recorded Confirmed losartan 25 mg tablet 1 tab DAILY 07/15/22 09/18/22 Previous Rx's Medication Instructions Recorded docusate sodium 100 mg capsule 100 mg PO BID constipation 90 days 04/23/21 #180 caps diphenhydramine HCl 25 mg capsule 25 mg PO Q6H PRN allergic reaction 06/17/21 (Banophen) #90 caps lancets (OneTouch UltraSoft 1 ea miscellaneous TID for 07/31/21 Lancets) diabetes mellitus 90 days #300 caps nut.tx.gluc.intol,lac-free,soy 1 ea PO TID 90 days #360 bottles 07/31/21 (Glucerna oral liquid) nebulizers (Aeroneb Go Nebulizer) #1 ea 09/11/21 sennosides 8.6 mg-docusate sodium 2 tab-cap PO BEDTIME #60 tabs 09/11/21 50 mg tablet (Senna-S) blood sugar diagnostic #200 boxes 11/03/21 Glucerna #90 ea 11/25/21 tiotropium bromide 18 mcg capsule 1 cap inhalation DAILY #90 12/08/21 with inhalation device (Spiriva inhalations with HandiHaler) omeprazole 40 mg capsule,delayed 40 mg PO DAILY #90 caps 12/24/21 release metoprolol succinate 200 mg 200 mg PO DAILY #90 tabs 03/02/22 tablet,extended release 24 hr carbamazepine 200 mg tablet 200 mg PO DAILY 90 days #90 tabs 03/19/22 fluticasone furoate 200 1 inh inhalation DAILY #30 ea 03/19/22 mcg/actuation blister powder for inhalation (Arnuity Ellipta) loperamide 2 mg capsule (Imodium 2 mg PO Q4H PRN Diarrhea #60 caps 05/01/22 A-D) ferrous gluconate 324 mg (37.5 mg 324 mg PO DAILY #90 tabs 05/28/22 iron) tablet apixaban 5 mg tablet (Eliquis) 5 mg PO BID #60 tabs 06/08/22 amiodarone 100 mg tablet 100 mg PO DAILY #90 tabs 06/10/22 megestrol 625 mg/5 mL (125 mg/mL) 5 ml PO QAM #250 mL 06/13/22 oral suspension albuterol sulfate 90 mcg/actuation 2 puff inhalation Q4H #8.5 ea 06/15/22 aerosol inhaler metformin 500 mg tablet,extended 500 mg PO BID #180 tabs 06/17/22 release 24 hr montelukast 10 mg tablet 10 mg PO BEDTIME #90 tabs 07/14/22 prednisone 20 mg tablet 40 mg PO DAILY #10 tabs 07/16/22 ipratropium 0.5 mg-albuterol 3 mg 3 ml inhalation Q4-6H PRN wheezing 07/29/22 (2.5 mg base)/3 mL nebulization 30 days #180 mL soln alprazolam 0.25 mg tablet 0.25 mg PO BID 30 days #60 tabs 09/01/22 nitroglycerin 0.4 mg sublingual 0.4 mg sublingual Q5M PRN chest 09/09/22 tablet pain #20 tabs atorvastatin 40 mg tablet 40 mg PO DAILY #90 tabs 09/13/22 multivitamin with folic acid 400 1 tab PO BEDTIME #90 tabs 09/14/22 mcg tablet (Daily-Eve (with folic acid)) food supplemt, lactose-reduced 1 ea PO TIDWMEAL intolerance 30 09/15/22 (Ensure oral liquid) days #90 bottles ondansetron HCl 4 mg tablet 8 mg PO Q8H PRN Nausea #60 tabs 09/15/22 morphine 30 mg tablet,extended 30 mg PO Q12H moderate pain #60 09/18/22 release (MS Contin) tabs oxycodone 5 mg tablet 5 mg PO Q6H PRN Breakthrough Pain, 09/18/22 Moderate #60 tabs blood sugar diagnostic #100 ea 10/01/22 valacyclovir 500 mg tablet 500 mg PO BID-TID #90 tabs 10/01/22 (Valtrex) <Sue Barrios MD - Last Filed: 10/06/22 13:29> Allergies/Adverse Reactions: Allergies Allergy/AdvReac Type Severity Reaction Status Date / Time No Known Allergies Allergy Verified 09/15/22 11:36 <Sue Barrios MD - Last Filed: 10/06/22 13:29> Review of Systems Review of Systems: Constitutional: + Fever, + Chills ENT/Mouth: No sore throat, No Rhinorrhea, No Swallowing Difficulty Eyes: No Eye Pain, No Swelling, No Redness Cardiovascular: + Chest Pain, + SOB, No Orthopnea, No Edema Respiratory: + Cough, No Sputum, No Wheezing, No dyspnea Gastrointestinal: +Nausea, No Vomiting, + Diarrhea, + abdominal Pain, Genitourinary: No Dysuria, No Urinary Frequency, No Hematuria Musculoskeletal: No joint pain, + Myalgias ,+ Generalized body aches Skin: No Skin Lesions, No rash Neuro: + Weakness, No Numbness, No Dizziness, +Headache <CHINO Lawrence - Last Filed: 10/06/22 19:54> [facility] Past Medical History Medical History: Medical History Anxiety and depression Biventricular ICD (implantable cardioverter-defibrillator) in place Cardiomyopathy Congestive heart failure COPD (chronic obstructive pulmonary disease) Coronary artery disease Current use of anticoagulant therapy CVA (cerebral vascular accident) Diverticulitis Esophageal hernia GERD (gastroesophageal reflux disease) History of renal calculi HTN (hypertension) Hypercholesterolemia Hyponatremia Osteopenia Type 2 diabetes mellitus with hyperglycemia Umbilical hernia <Sue Barrios MD - Last Filed: 10/06/22 13:29> Surgical History: Surgical History History of hemicolectomy History of incisional hernia repair History of pacemaker <Sue Barrios MD - Last Filed: 10/06/22 13:29> Family History Family History: Family History Father Medical history unknown Mother Diabetes Hypertension <Sue Barrios MD - Last Filed: 10/06/22 13:29> Social History Social History: Social History Household Members: Family Housing: House Are you a primary care technician to a significant other at home: No Do you presently have visiting nurse or other home services: No Alcohol intake: never Patient Tobacco Use Status: Never used Tobacco e-Cigarette/Vaping Use: Never Used Second Hand Smoke Exposure: No Advance Directives: Yes Advance Directives on File: Yes Advance Directives Date on File: 02/17/22 service: No Current occupational status: retired Cognitive needs: No Hearing needs: No Vision needs: Yes <Sue Barrios MD - Last Filed: 10/06/22 13:29> Physical Exam Vital Signs: Vital Signs: Last Vital Signs Temp 98.0 F 10/06/22 15:51 Pulse 77 10/06/22 15:51 Resp 16 10/06/22 15:51 BP 149/69 H 10/06/22 15:51 Pulse Ox 97 10/06/22 15:51 O2 Del Method 10/06/22 15:51 BMI result Body Mass Index 25.2 <Sue Barrios MD - Last Filed: 10/06/22 13:29> Vital Signs: Last Vital Signs Temp 98.0 F 10/06/22 15:51 Pulse 77 10/06/22 15:51 Resp 16 10/06/22 15:51 BP 149/69 H 10/06/22 15:51 Pulse Ox 97 10/06/22 15:51 O2 Del Method 10/06/22 15:51 BMI result Body Mass Index 25.2 <CHINO Lawrence - Last Filed: 10/06/22 19:54> Appearance: Alert. Oriented X3. +acute distress. +Frail Eyes: Pupils equal, round and reactive to light. ENT: Pharynx normal. Neck: Normal inspection. Neck supple. CVS: Normal heart rate and rhythm. Pulses normal. Respiratory: No respiratory distress. Breath sounds normal. Abdomen: Soft and +tender to deep palpation of epigastric area. +BS x4 Skin: Skin warm and dry. Normal skin color. Normal skin turgor. No rashes. Extremities: No lower extremity edema. Neuro: Oriented X 3. No motor deficit. No sensory deficit. Moves all extremities, strength equal and symmetrical throughout, mild generalized weakn ess noted. <CHINO Lawrence - Last Filed: 10/06/22 19:54> Course Reevaluation(s) Reevaluation #1: 71-year-old female history of pancreatic cancer patient is receiving chemotherapy last chemo was 4 days ago patient after chemo feeling generalized weakness, shortness of breath patient with history of COPD, been having nausea with no vomiting, decreased p.o. intake and decreased appetite, nonbloody watery diarrhea. No fever, no coughing, feels dry and thirsty. <Sue Barrios MD - Last Filed: 10/06/22 13:29> Time: 13:25 <Sue Barrios MD - Last Filed: 10/06/22 13:29> Reevaluation #2: Lab workup was unremarkable. Urinalysis is consistent with infection. It appears dark in color. She states she has not eaten or drinking much in the last 3 days. She has been in bed very weak. Will treat with IV Rocephin and IV fluids. Will have her seen by Physical therapy for possible short-term rehab placement. armored vehicle officer used to discuss results and plan. P.o. diet has been ordered. Med rec is pending. Physician observation started at 19:47. Patient placed in physician observation because patient is awaiting PT evaluation for the possible short term rehab At the time observation was started patient's vital signs were stable. Patient is alert and oriented. Neuro exam is non-focal. CV: RRR and lungs are clear. Will continue to monitor. <CHINO Lawrence - Last Filed: 10/06/22 19:54> Time: 19:47 <CHINO Lawrence - Last Filed: 10/06/22 19:54> Medications Administered Discontinued Medications Generic Name Dose Route Start Last Admin Trade Name Freq PRN Reason Stop Dose Admin Ceftriaxone Sodium 1 gm/ 50 mls @ 100 mls/hr 10/06/22 18:52 10/06/22 19:19 Sodium Chloride IV 10/06/22 19:21 100 mls/hr ONCE ONE Administration <Sue Barrios MD - Last Filed: 10/06/22 13:29> Medications Administered Discontinued Medications Generic Name Dose Route Start Last Admin Trade Name Freq PRN Reason Stop Dose Admin Ceftriaxone Sodium 1 gm/ 50 mls @ 100 mls/hr 10/06/22 18:52 10/06/22 19:19 Sodium Chloride IV 10/06/22 19:21 100 mls/hr ONCE ONE Administration <CHINO Lawrence - Last Filed: 10/06/22 19:54> MDM - SOB/Dyspnea MDM Narrative Medical decision making narrative: 71 year old female with a PMH of COPD, HTN,CVA, Type 2 diabetes, pancreatic carcinoma, and GERD who presents to the ED c/o of SOB, chest pain, generalized body aches, nausea and decreased PO intake s/p chemotherapy x4 days.Her last chemo was on Wednesday. On exam , VSS, lungs CTA, generalized body tenderness. Concerns for drug reaction and chemotherapy intolerance.. Low concern for neutropenic fever. Plan:EKG, Chest X-Ray, Labs, CIVUS/Flu/RSV 19:50 - UA + for infection. not septic. Plan for IV abx and IVF tonight. PT eval in the AM and case management for STR. will montior for GI losses, no diarrhea while in the ER as of yet <CHINO Lawrence - Last Filed: 10/06/22 19:54> Medical Records Attestation: I reviewed the patient's medical records. <CHINO Lawrence - Last Filed: 10/06/22 19:54> Lab Data Attestation: I reviewed the patient's lab results. <CHINO Lawrence - Last Filed: 10/06/22 19:54> Result diagrams: : 10/06/22 13:36 10/06/22 13:36 <Sue Barrios MD - Last Filed: 10/06/22 13:29> Labs: Lab Results 10/06/22 10/06/22 10/06/22 Range/Units 13:36 13:36 13:36 WBC 6.1 (4.8-10.8) X10*3/uL RBC 3.66 L (4.20-5.50) X10*6/uL Hgb 10.8 L (12.0-16.0) g/dl Hct 33.5 L (37.0-47.0) % MCV 91.5 (80.0-98.0) fL MCH 29.5 (27.0-33.0) pg MCHC 32.2 (31.0-35.0) g/dl RDW 13.0 (11.0-16.0) % Plt Count 107 L D (160-400) X10*3/uL MPV 12.1 (9.4-12.3) fL Immature Gran % (Auto) 1.8 H (0.0-0.4) % Neut % (Auto) 86.1 H (45-73) % Lymph % (Auto) 8.4 L (20-40) % [place] % (Auto) 2.8 (2-11) % Eos % (Auto) 0.7 (0-4) % Baso % (Auto) 0.2 (0-2) % Lymph # (Auto) 0.5 L (1.2-4.9) X10*3/uL [place] # (Auto) 0.2 (0.1-1.2) X10*3/uL Eos # (Auto) 0.0 (0.0-0.4) X10*3/uL Baso # (Auto) 0.0 (0.0-0.2) X10*3/uL Abs Immat Gran (auto) 0.11 H (0.00-0.03) X10*3/uL Absolute Neuts (auto) 5.2 (2.0-8.3) x10*3/uL Absolute Nucleated RBC 0.000 (0.0-0.012) X10*3/uL Nucleated RBC % (auto) 0.0 (0.0-0.2) /100WBC Sodium 134 L (135-145) mmol/L Potassium 4.2 (3.3-5.1) mmol/L Chloride 98 (96-108) mmol/L Carbon Dioxide 25 (22-29) mmol/L Anion Gap 15 (12-20) BUN 19 H (9-16) mg/dL Creatinine 1.13 (0.5-1.4) mg/dL Estim Creat Clear Calc 36.6 Estimated GFR 47 POC Glucose (60-115) mg/dL Random Glucose 306 H (60-115) mg/dL Calcium 9.2 D (8.4-10.2) mg/dL Total Bilirubin 0.5 (0.0-1.0) mg/dL Direct Bilirubin 0.3 (0.0-0.5) mg/dL AST 17 (5-31) U/L ALT 13 (0-31) U/L Alkaline Phosphatase 61 (39-117) U/L Troponin I High Sens 27.8 H (<3.5-17.0) ng/L Total Protein 7.1 (6.5-8.0) g/dL Albumin 4.1 (3.5-5.0) g/dL Lipase 14 (8-78) U/L Urine Color Urine Appearance Urine pH (5.0-9.0) Ur Specific [place] (1.005-1.025) Urine Protein (Neg-Trace) mg/dL Urine Glucose (UA) (Negative) mg/dL Urine Ketones (Negative) mg/dL Urine Blood (Negative) Urine Nitrite (Negative) Ur Leukocyte Esterase (Negative) Urine RBC (0-2) /HPF Urine WBC (0-5) /HPF Ur Squamous Epith Cells (0-2) /HPF Calcium Oxalate Crystal Urine Bacteria (None Seen) Hyaline Casts (0-2) /LPF Influenza Type A (PCR) (Negative) Influenza Type B (PCR) (Negative) RSV RNA Qual (PCR) (Negative) SARS-CoV-2 RNA (RT-PCR) (Negative) 10/06/22 10/06/22 10/06/22 Range/Units 13:36 16:34 17:53 WBC (4.8-10.8) X10*3/uL RBC (4.20-5.50) X10*6/uL Hgb (12.0-16.0) g/dl Hct (37.0-47.0) % MCV (80.0-98.0) fL MCH (27.0-33.0) pg MCHC (31.0-35.0) g/dl RDW (11.0-16.0) % Plt Count (160-400) X10*3/uL MPV (9.4-12.3) fL Immature Gran % (Auto) (0.0-0.4) % Neut % (Auto) (45-73) % Lymph % (Auto) (20-40) % [place] % (Auto) (2-11) % Eos % (Auto) (0-4) % Baso % (Auto) (0-2) % Lymph # (Auto) (1.2-4.9) X10*3/uL [place] # (Auto) (0.1-1.2) X10*3/uL Eos # (Auto) (0.0-0.4) X10*3/uL Baso # (Auto) (0.0-0.2) X10*3/uL Abs Immat Gran (auto) (0.00-0.03) X10*3/uL Absolute Neuts (auto) (2.0-8.3) x10*3/uL Absolute Nucleated RBC (0.0-0.012) X10*3/uL Nucleated RBC % (auto) (0.0-0.2) /100WBC Sodium (135-145) mmol/L Potassium (3.3-5.1) mmol/L Chloride (96-108) mmol/L Carbon Dioxide (22-29) mmol/L Anion Gap (12-20) BUN (9-16) mg/dL Creatinine (0.5-1.4) mg/dL Estim Creat Clear Calc Estimated GFR POC Glucose 182 H (60-115) mg/dL Random Glucose (60-115) mg/dL Calcium (8.4-10.2) mg/dL Total Bilirubin (0.0-1.0) mg/dL Direct Bilirubin (0.0-0.5) mg/dL AST (5-31) U/L ALT (0-31) U/L Alkaline Phosphatase (39-117) U/L Troponin I High Sens 24.0 H (<3.5-17.0) ng/L Total Protein (6.5-8.0) g/dL Albumin (3.5-5.0) g/dL Lipase (8-78) U/L Urine Color Urine Appearance Urine pH (5.0-9.0) Ur Specific [place] (1.005-1.025) Urine Protein (Neg-Trace) mg/dL Urine Glucose (UA) (Negative) mg/dL Urine Ketones (Negative) mg/dL Urine Blood (Negative) Urine Nitrite (Negative) Ur Leukocyte Esterase (Negative) Urine RBC (0-2) /HPF Urine WBC (0-5) /HPF Ur Squamous Epith Cells (0-2) /HPF Calcium Oxalate Crystal Urine Bacteria (None Seen) Hyaline Casts (0-2) /LPF Influenza Type A (PCR) NEGATIVE (Negative) Influenza Type B (PCR) NEGATIVE (Negative) RSV RNA Qual (PCR) NEGATIVE (Negative) SARS-CoV-2 RNA (RT-PCR) NEGATIVE (Negative) 10/06/22 Range/Units 18:11 WBC (4.8-10.8) X10*3/uL RBC (4.20-5.50) X10*6/uL Hgb (12.0-16.0) g/dl Hct (37.0-47.0) % MCV (80.0-98.0) fL MCH (27.0-33.0) pg MCHC (31.0-35.0) g/dl RDW (11.0-16.0) % Plt Count (160-400) X10*3/uL MPV (9.4-12.3) fL Immature Gran % (Auto) (0.0-0.4) % Neut % (Auto) (45-73) % Lymph % (Auto) (20-40) % [place] % (Auto) (2-11) % Eos % (Auto) (0-4) % Baso % (Auto) (0-2) % Lymph # (Auto) (1.2-4.9) X10*3/uL [place] # (Auto) (0.1-1.2) X10*3/uL Eos # (Auto) (0.0-0.4) X10*3/uL Baso # (Auto) (0.0-0.2) X10*3/uL Abs Immat Gran (auto) (0.00-0.03) X10*3/uL Absolute Neuts (auto) (2.0-8.3) x10*3/uL Absolute Nucleated RBC (0.0-0.012) X10*3/uL Nucleated RBC % (auto) (0.0-0.2) /100WBC Sodium (135-145) mmol/L Potassium (3.3-5.1) mmol/L Chloride (96-108) mmol/L Carbon Dioxide (22-29) mmol/L Anion Gap (12-20) BUN (9-16) mg/dL Creatinine (0.5-1.4) mg/dL Estim Creat Clear Calc Estimated GFR POC Glucose (60-115) mg/dL Random Glucose (60-115) mg/dL Calcium (8.4-10.2) mg/dL Total Bilirubin (0.0-1.0) mg/dL Direct Bilirubin (0.0-0.5) mg/dL AST (5-31) U/L ALT (0-31) U/L Alkaline Phosphatase (39-117) U/L Troponin I High Sens (<3.5-17.0) ng/L Total Protein (6.5-8.0) g/dL Albumin (3.5-5.0) g/dL Lipase (8-78) U/L Urine Color DK YELLOW Urine Appearance Cloudy Urine pH 5.0 (5.0-9.0) Ur Specific [place] >= 1.030 H (1.005-1.025) Urine Protein 30 (1+) H (Neg-Trace) mg/dL Urine Glucose (UA) Negative (Negative) mg/dL Urine Ketones Trace (Negative) mg/dL Urine Blood Negative (Negative) Urine Nitrite Positive H (Negative) Ur Leukocyte Esterase Negative (Negative) Urine RBC 3-5 H (0-2) /HPF Urine WBC 0-5 (0-5) /HPF Ur Squamous Epith Cells 6-10 (0-2) /HPF Calcium Oxalate Crystal Present Urine Bacteria 1+ (None Seen) Hyaline Casts 11-20 (0-2) /LPF Influenza Type A (PCR) (Negative) Influenza Type B (PCR) (Negative) RSV RNA Qual (PCR) (Negative) SARS-CoV-2 RNA (RT-PCR) (Negative) <Sue Barrios MD - Last Filed: 10/06/22 13:29> Lab Results 10/06/22 10/06/22 10/06/22 Range/Units 13:36 13:36 13:36 WBC 6.1 (4.8-10.8) X10*3/uL RBC 3.66 L (4.20-5.50) X10*6/uL Hgb 10.8 L (12.0-16.0) g/dl Hct 33.5 L (37.0-47.0) % MCV 91.5 (80.0-98.0) fL MCH 29.5 (27.0-33.0) pg MCHC 32.2 (31.0-35.0) g/dl RDW 13.0 (11.0-16.0) % Plt Count 107 L D (160-400) X10*3/uL MPV 12.1 (9.4-12.3) fL Immature Gran % (Auto) 1.8 H (0.0-0.4) % Neut % (Auto) 86.1 H (45-73) % Lymph % (Auto) 8.4 L (20-40) % [place] % (Auto) 2.8 (2-11) % Eos % (Auto) 0.7 (0-4) % Baso % (Auto) 0.2 (0-2) % Lymph # (Auto) 0.5 L (1.2-4.9) X10*3/uL [place] # (Auto) 0.2 (0.1-1.2) X10*3/uL Eos # (Auto) 0.0 (0.0-0.4) X10*3/uL Baso # (Auto) 0.0 (0.0-0.2) X10*3/uL Abs Immat Gran (auto) 0.11 H (0.00-0.03) X10*3/uL Absolute Neuts (auto) 5.2 (2.0-8.3) x10*3/uL Absolute Nucleated RBC 0.000 (0.0-0.012) X10*3/uL Nucleated RBC % (auto) 0.0 (0.0-0.2) /100WBC Sodium 134 L (135-145) mmol/L Potassium 4.2 (3.3-5.1) mmol/L Chloride 98 (96-108) mmol/L Carbon Dioxide 25 (22-29) mmol/L Anion Gap 15 (12-20) BUN 19 H (9-16) mg/dL Creatinine 1.13 (0.5-1.4) mg/dL Estim Creat Clear Calc 36.6 Estimated GFR 47 POC Glucose (60-115) mg/dL Random Glucose 306 H (60-115) mg/dL Calcium 9.2 D (8.4-10.2) mg/dL Total Bilirubin 0.5 (0.0-1.0) mg/dL Direct Bilirubin 0.3 (0.0-0.5) mg/dL AST 17 (5-31) U/L ALT 13 (0-31) U/L Alkaline Phosphatase 61 (39-117) U/L Troponin I High Sens 27.8 H (<3.5-17.0) ng/L Total Protein 7.1 (6.5-8.0) g/dL Albumin 4.1 (3.5-5.0) g/dL Lipase 14 (8-78) U/L Urine Color Urine Appearance Urine pH (5.0-9.0) Ur Specific [place] (1.005-1.025) Urine Protein (Neg-Trace) mg/dL Urine Glucose (UA) (Negative) mg/dL Urine Ketones (Negative) mg/dL Urine Blood (Negative) Urine Nitrite (Negative) Ur Leukocyte Esterase (Negative) Urine RBC (0-2) /HPF Urine WBC (0-5) /HPF Ur Squamous Epith Cells (0-2) /HPF Calcium Oxalate Crystal Urine Bacteria (None Seen) Hyaline Casts (0-2) /LPF Influenza Type A (PCR) (Negative) Influenza Type B (PCR) (Negative) RSV RNA Qual (PCR) (Negative) SARS-CoV-2 RNA (RT-PCR) (Negative) 10/06/22 10/06/22 10/06/22 Range/Units 13:36 16:34 17:53 WBC (4.8-10.8) X10*3/uL RBC (4.20-5.50) X10*6/uL Hgb (12.0-16.0) g/dl Hct (37.0-47.0) % MCV (80.0-98.0) fL MCH (27.0-33.0) pg MCHC (31.0-35.0) g/dl RDW (11.0-16.0) % Plt Count (160-400) X10*3/uL MPV (9.4-12.3) fL Immature Gran % (Auto) (0.0-0.4) % Neut % (Auto) (45-73) % Lymph % (Auto) (20-40) % [place] % (Auto) (2-11) % Eos % (Auto) (0-4) % Baso % (Auto) (0-2) % Lymph # (Auto) (1.2-4.9) X10*3/uL [place] # (Auto) (0.1-1.2) X10*3/uL Eos # (Auto) (0.0-0.4) X10*3/uL Baso # (Auto) (0.0-0.2) X10*3/uL Abs Immat Gran (auto) (0.00-0.03) X10*3/uL Absolute Neuts (auto) (2.0-8.3) x10*3/uL Absolute Nucleated RBC (0.0-0.012) X10*3/uL Nucleated RBC % (auto) (0.0-0.2) /100WBC Sodium (135-145) mmol/L Potassium (3.3-5.1) mmol/L Chloride (96-108) mmol/L Carbon Dioxide (22-29) mmol/L Anion Gap (12-20) BUN (9-16) mg/dL Creatinine (0.5-1.4) mg/dL Estim Creat Clear Calc Estimated GFR POC Glucose 182 H (60-115) mg/dL Random Glucose (60-115) mg/dL Calcium (8.4-10.2) mg/dL Total Bilirubin (0.0-1.0) mg/dL Direct Bilirubin (0.0-0.5) mg/dL AST (5-31) U/L ALT (0-31) U/L Alkaline Phosphatase (39-117) U/L Troponin I High Sens 24.0 H (<3.5-17.0) ng/L Total Protein (6.5-8.0) g/dL Albumin (3.5-5.0) g/dL Lipase (8-78) U/L Urine Color Urine Appearance Urine pH (5.0-9.0) Ur Specific [place] (1.005-1.025) Urine Protein (Neg-Trace) mg/dL Urine Glucose (UA) (Negative) mg/dL Urine Ketones (Negative) mg/dL Urine Blood (Negative) Urine Nitrite (Negative) Ur Leukocyte Esterase (Negative) Urine RBC (0-2) /HPF Urine WBC (0-5) /HPF Ur Squamous Epith Cells (0-2) /HPF Calcium Oxalate Crystal Urine Bacteria (None Seen) Hyaline Casts (0-2) /LPF Influenza Type A (PCR) NEGATIVE (Negative) Influenza Type B (PCR) NEGATIVE (Negative) RSV RNA Qual (PCR) NEGATIVE (Negative) SARS-CoV-2 RNA (RT-PCR) NEGATIVE (Negative) 10/06/22 Range/Units 18:11 WBC (4.8-10.8) X10*3/uL RBC (4.20-5.50) X10*6/uL Hgb (12.0-16.0) g/dl Hct (37.0-47.0) % MCV (80.0-98.0) fL MCH (27.0-33.0) pg MCHC (31.0-35.0) g/dl RDW (11.0-16.0) % Plt Count (160-400) X10*3/uL MPV (9.4-12.3) fL Immature Gran % (Auto) (0.0-0.4) % Neut % (Auto) (45-73) % Lymph % (Auto) (20-40) % [place] % (Auto) (2-11) % Eos % (Auto) (0-4) % Baso % (Auto) (0-2) % Lymph # (Auto) (1.2-4.9) X10*3/uL [place] # (Auto) (0.1-1.2) X10*3/uL Eos # (Auto) (0.0-0.4) X10*3/uL Baso # (Auto) (0.0-0.2) X10*3/uL Abs Immat Gran (auto) (0.00-0.03) X10*3/uL Absolute Neuts (auto) (2.0-8.3) x10*3/uL Absolute Nucleated RBC (0.0-0.012) X10*3/uL Nucleated RBC % (auto) (0.0-0.2) /100WBC Sodium (135-145) mmol/L Potassium (3.3-5.1) mmol/L Chloride (96-108) mmol/L Carbon Dioxide (22-29) mmol/L Anion Gap (12-20) BUN (9-16) mg/dL Creatinine (0.5-1.4) mg/dL Estim Creat Clear Calc Estimated GFR POC Glucose (60-115) mg/dL Random Glucose (60-115) mg/dL Calcium (8.4-10.2) mg/dL Total Bilirubin (0.0-1.0) mg/dL Direct Bilirubin (0.0-0.5) mg/dL AST (5-31) U/L ALT (0-31) U/L Alkaline Phosphatase (39-117) U/L Troponin I High Sens (<3.5-17.0) ng/L Total Protein (6.5-8.0) g/dL Albumin (3.5-5.0) g/dL Lipase (8-78) U/L Urine Color DK YELLOW Urine Appearance Cloudy Urine pH 5.0 (5.0-9.0) Ur Specific [place] >= 1.030 H (1.005-1.025) Urine Protein 30 (1+) H (Neg-Trace) mg/dL Urine Glucose (UA) Negative (Negative) mg/dL Urine Ketones Trace (Negative) mg/dL Urine Blood Negative (Negative) Urine Nitrite Positive H (Negative) Ur Leukocyte Esterase Negative (Negative) Urine RBC 3-5 H (0-2) /HPF Urine WBC 0-5 (0-5) /HPF Ur Squamous Epith Cells 6-10 (0-2) /HPF Calcium Oxalate Crystal Present Urine Bacteria 1+ (None Seen) Hyaline Casts 11-20 (0-2) /LPF Influenza Type A (PCR) (Negative) Influenza Type B (PCR) (Negative) RSV RNA Qual (PCR) (Negative) SARS-CoV-2 RNA (RT-PCR) (Negative) <CHINO Lawrence - Last Filed: 10/06/22 19:54> ECG Data Attestation: I personally reviewed and interpreted this ECG as follows: <CHINO Lawrence - Last Filed: 10/06/22 19:54> ECG interpretation date: 10/06/22 <CHINO Lawrence - Last Filed: 10/06/22 19:54> Prior ECG tracings: available for review <CHINO Lawrence - Last Filed: 10/06/22 19:54> Interpretation: V paced rhythm, rate 79 beats per minute, normal SC interval, no ST segment elevations or depressions. <CHINO Lawrence - Last Filed: 10/06/22 19:54> Discharge Plan Discharge Clinical Impression: Acute UTI, Generalized weakness <Sue Brarios MD - Last Filed: 10/06/22 13:29> Patient Disposition: Still a Patient <Sue Barrios MD - Last Filed: 10/06/22 13:29> Prescriptions: No Action docusate sodium 100 mg capsule 100 mg PO BID 90 Days Qty: 180 3RF diphenhydramine HCl [Banophen] 25 mg capsule 25 mg PO Q6H PRN (Reason: allergic reaction) Qty: 90 5RF lancets [OneTouch UltraSoft Lancets] Misc 1 ea miscellaneous TID 90 Days Qty: 300 3RF Glucerna Liquid 1 ea PO TID 90 Days Qty: 360 0RF (DME) Glucerna See Rx Instructions .Route .MEDSUPPLY Qty: 90 11RF Rx Instructions: As directed Spiriva with HandiHaler 18 mcg capsule, w/inhalation device 1 cap inhalation DAILY Qty: 90 3RF omeprazole 40 mg capsule,delayed release(DR/EC) 40 mg PO DAILY Qty: 90 2RF metoprolol succinate 200 mg tablet extended release 24 hr 200 mg PO DAILY Qty: 90 3RF carbamazepine 200 mg tablet 200 mg PO DAILY 90 Days Qty: 90 2RF Arnuity Ellipta 200 mcg/actuation blister with device 1 inh inhalation DAILY Qty: 30 11RF ferrous gluconate 324 mg (37.5 mg iron) tablet 324 mg PO DAILY Qty: 90 3RF Eliquis 5 mg Tablet 5 mg PO BID Qty: 60 4RF amiodarone 100 mg tablet 100 mg PO DAILY Qty: 90 1RF albuterol sulfate 90 mcg/actuation HFA aerosol inhaler 2 puff inhalation Q4H Qty: 8.5 1RF metformin 500 mg tablet extended release 24 hr 500 mg PO BID Qty: 180 2RF montelukast 10 mg tablet 10 mg PO BEDTIME Qty: 90 3RF alprazolam 0.25 mg tablet 0.25 mg PO BID 30 Days Qty: 60 2RF nitroglycerin 0.4 mg tablet, sublingual 0.4 mg sublingual Q5M PRN (Reason: chest pain) Qty: 20 0RF Rx Instructions: do not exceed 3 doses per episode atorvastatin 40 mg tablet 40 mg PO DAILY Qty: 90 2RF multivitamin with folic acid [Daily-Eve (with folic acid)] 400 mcg tablet 1 tab PO BEDTIME Qty: 90 3RF (DME) blood sugar diagnostic Strip See Rx Instructions .ROUTE .MEDSUPPLY Qty: 100 3RF Rx Instructions: As directed check the blood sugar once a day loperamide [Imodium A-D] 2 mg Capsule 2 mg PO Q4H PRN (Reason: Diarrhea) Qty: 60 3RF Rx Instructions: administer after each loose stool until symptoms controlled; do not exceed 8 mg per 24 hrs megestrol 625 mg/5 mL (125 mg/mL) Suspension 5 ml PO QAM Qty: 250 0RF morphine [MS Contin] 30 mg Tablet Extended Release 30 mg PO Q12H Qty: 60 0RF oxycodone 5 mg Tablet 5 mg PO Q6H PRN (Reason: Breakthrough Pain, Moderate) Qty: 60 0RF valacyclovir [Valtrex] 500 mg Tablet 500 mg PO BID-TID Qty: 90 0RF losartan 25 mg tablet 1 tab DAILY prednisone 20 mg Tablet 40 mg PO DAILY Qty: 10 0RF sennosides-docusate sodium [Senna-S] 8.6-50 mg tablet 2 tab-cap PO BEDTIME Qty: 60 0RF (DME) Aeroneb Go Nebulizer Misc See Rx Instructions .Route Qty: 1 0RF Rx Instructions: As directed (DME) blood sugar diagnostic Strip See Rx Instructions .ROUTE .MEDSUPPLY Qty: 200 3RF Rx Instructions: As directed check the blood sugar twice a day ipratropium-albuterol 0.5 mg-3 mg(2.5 mg base)/3 mL solution for nebulization 3 ml inhalation Q4-6H PRN (Reason: wheezing) 30 Days Qty: 180 3RF ondansetron HCl 4 mg tablet 8 mg PO Q8H PRN (Reason: Nausea) Qty: 60 11RF Ensure Liquid 1 ea PO TIDWMEAL 30 Days Qty: 90 11RF Rx Instructions: vanilla flavor only <Sue Barrios MD - Last Filed: 10/06/22 13:29>
[2022-10-06 13:27] VITALS: BP 135/60; PULSE 82; RESP 16; TEMP 37.4; O2SAT 95; BMI 25.2
[2022-10-06 13:40] LABS: MANUAL DIFF FLAG NO
[2022-10-06 13:45] LABS: Basophils Percent Auto 0.2 % (0-2); Eosinophils Percent Auto 0.7 % (0-4); Hematocrit 33.5 % (37.0-47.0); Hemoglobin 10.8 g/dl (12.0-16.0); Imm Gran Abs Auto 0.11 X10*3/uL (0.00-0.03); Imm Gran Pct Auto 1.8 % (0.0-0.4); Lymphocytes Absolute Auto 0.5 X10*3/uL (1.2-4.9); Lymphocytes Percent Auto 8.4 % (20-40); Mean Corpuscular HGB Conc 32.2 g/dl (31.0-35.0); Mean Corpuscular Hemoglobin 29.5 pg (27.0-33.0); Mean Corpuscular Volume 91.5 fL (80.0-98.0); Mean Platelet Volume 12.1 fL (9.4-12.3); Monocytes Absolute Auto 0.2 X10*3/uL (0.1-1.2); Monocytes Percent Auto 2.8 % (2-11); Neutrophils Absolute Auto 5.2 x10*3/uL (2.0-8.3); Neutrophils Percent Auto 86.1 % (45-73); Platelet Count 107 X10*3/uL (160-400); Red Blood Count 3.66 X10*6/uL (4.20-5.50); White Blood Count 6.1 X10*3/uL (4.8-10.8)
[2022-10-06 14:06] LABS: Troponin-I High Sensitivity 27.8 ng/L (<3.5-17.0)
[2022-10-06 14:23] LABS: Influenza A PCR NEGATIVE (Negative); Influenza B PCR NEGATIVE (Negative); Resp Syncy Virus RNA Qual PCR NEGATIVE (Negative); SARS COV2 PCR INHOUSE NEGATIVE (Negative)
[2022-10-06 14:33] LABS: Alanine Aminotransferase 13 U/L (0-31); Albumin Level 4.1 g/dL (3.5-5.0); Alkaline Phosphatase 61 U/L (39-117); Anion Gap 15 (12-20); Aspartate Amino Transferase 17 U/L (5-31); Bilirubin Direct 0.3 mg/dL (0.0-0.5); Bilirubin Total 0.5 mg/dL (0.0-1.0); Blood Urea Nitrogen 19 mg/dL (9-16); Calcium 9.2 mg/dL (8.4-10.2); Carbon Dioxide 25 mmol/L (22-29); Chloride 98 mmol/L (96-108); Creatinine Clr Calc Pharmacy 36.6; Estimated Glomerular Filt Rate 47; Glucose Random 306 mg/dL (60-115); Lipase 14 U/L (8-78); Potassium 4.2 mmol/L (3.3-5.1); Sodium 134 mmol/L (135-145); Total Protein 7.1 g/dL (6.5-8.0)
[2022-10-06 15:48] VITALS: BP 117/61; PULSE 75; RESP 16; O2SAT 98
[2022-10-06 15:51] VITALS: BP 149/69; PULSE 77; RESP 16; TEMP 36.7; O2SAT 97
--- OUTSIDE RECORDS SUMMARY | 2022-10-06 15:59 | XMS_ITS | Continuity of Care Document ---
:1950 Author Organization [facility] Address [address] [place] [address]- Care Team Providers Name Role Phone Malika Mayer MD Primary Care Physician [place] [facility] [place] 01/01[place]22 - 01/31/22 [facility] [address] [place] [address] Attending Physician: Dallas Sweet Admitting Physician: Dallas Sweet Referring Physician: Dallas Sweet Allergies, Adverse Reactions, Alerts No Known Allergies Immunizations Not Given Vaccine Date Status Refusal Reason pneumococcal 23-valent vaccine1 04/13/14 Not Given Patient Refuses 1Result Note: patient states she will follow up with her PCP, she does not know if she received this year Medications Advair Diskus 500 mcg-50 mcg inhalation powder 1 puff, Inhalation, 2 times a day, Refills 0, Maintenance, 10/31/21 11:09:00 EST Start Date: 10/31/21 Status: OrderedAerochamber See Instructions, # 1 each, Maintenance, use with symbicort and albuterol, 02/28/18 12:42:23 EDT, Compound Start Date: 02/28/18 Status: Orderedalbuterol 0.083% inhalation solution 3 mL = 2.5 mg, Neb, Every 6 hours, PRN Wheezing/Shortness of Breath, # 100 each, 3 Refills, Maintenance, 08/29/18 10:49:40 EDT Start Date: 08/29/18 Status: Orderedalbuterol-ipratropium 3 mg-0.5 mg/3 ml inhalation solution 0 Refills, Maintenance, 12/12/19 11:40:00 EST Start Date: 12/12/19 Status: OrderedAlprazolam 0.5 mg, By Mouth, 2 times a day, Refills 0, Maintenance, 10/19/18 11:18:04 EST Start Date: 10/19/18 Status: Orderedamiodarone 200 mg oral tablet TAKE 1 TABLET BY MOUTH DAILY Start Date: 05/06/21 Status: OrderedArnuity Ellipta 200 mcg inhalation powder 1 puffs = 200 mcg, Inhalation, Every 24 hours, # 30 each, 6 Refills, Maintenance, 05/23/19 12:20:38 EDT, Powder Start Date: 05/23/19 Status: Orderedaspirin 81 mg oral tablet 1 tablet = 81 mg, By Mouth, Daily, # 90 tablet, 1 Refills, Maintenance, 10/04/19 12:52:57 EST, Tablet, please bubble pack Start Date: 10/04/19 Stop Date: 04/01/20 Status: Orderedatorvastatin 40 mg oral tablet 1 tablet = 40 mg, By Mouth, Daily, # 90 tablet, 1 Refills, Maintenance, 10/04/19 12:56:49 EST, Tablet, please bubble pack Start Date: 10/04/19 Stop Date: 04/01/20 Status: Orderedcalcium (as carbonate)-vitamin D 600 mg-800 intl units oral tablet 1 tablet, By Mouth, Daily, # 60 tablet, 0 Refills, Maintenance, 10/01/17 10:20:41 EST, Tablet Start Date: 10/01/17 Status: OrderedcarBAMazepine 200 mg oral tablet TAKE 1/2 TABLET POR V A ORAL DOS VECES AL D A X 1 WEEK THEN 1 TAB POR V A ORAL TWICE A DAY ORALLY 90 Start Date: 05/06/21 Status: Orderedclopidogrel 75 mg oral tablet 75 mg, 1, tablet, By Mouth, Daily, # 90 tablet, Refills 1, Tot. Refills 1, Maintenance, 10/04/19 12:58:56 EST, Route to Pharmacy Electronically, [id number], [facility]/pharmacy #[id number], please bubble pack Start Date: 10/04/19 Stop Date: 04/01/20 Status: OrderedCoumadin 4 mg oral tablet 1 tablet = 4 mg, By Mouth, Daily, 0 Refills, Maintenance, 02/27/20 10:18:00 EDT Start Date: 02/27/20 Status: OrderedDaily Eve oral tablet TOME REMA TABLETA POR V A ORAL TODOS LOS D Start Date: 05/06/21 Status: OrdereddiphenhydrAMINE 25 mg oral capsule 1 capsule = 25 mg, By Mouth, 3 times a day, PRN for allergy symptoms, # 30 capsule, 0 Refills, Maintenance, 05/06/21 9:28:00 EDT, Capsule, Partial fill upon patient request if the prescription is for aschedule II opioid drug. Start Date: 05/06/21 Status: Ordereddocusate sodium 100 mg oral capsule 1 capsule = 100 mg, By Mouth, 2 times a day, PRN as needed for constipation, # 20 capsule, 0 Refills, Maintenance, 12/12/19 11:41:00 EST, Capsule Start Date: 12/12/19 Status: OrderedFerrous Gluconate Ferrous Gluconate, 324 mg, By Mouth, Daily, Refills 0, Maintenance, 05/23/19 11:23:00 EDT, Compound Start Date: 05/23/19 Status: Orderedferrous gluconate 324 mg (37.5 mg elemental iron) oral tablet TOME REMA TABLETA TODOS LOS D Start Date: 05/06/21 Status: Orderedferrous sulfate 325 mg oral enteric coated tablet 325 mg, 1, tablet, By Mouth, Daily, # 30 tablet, Refills 0, Maintenance, 10/01/17 10:20:55 Start Date: 10/01/17 Status: Orderedfluticasone 50 mcg/inh nasal spray TAKE 1 SPRAY IN EACH NOSTRIL ONCE A DAY NASALLY 30 DAY(S) Start Date: 02/28/18 Status: OrderedGabapentin = 100 mg, By Mouth, 0 Refills, Maintenance, 10/31/21 11:07:00 EST, Partial fill upon patient requestif the prescription is for a schedule II opioid drug. Start Date: 10/31/21 Status: Orderedgabapentin 300 mg oral capsule 300 mg, 1, capsule, By Mouth, 2 times a day, Refills 0, Maintenance, 03/17/17 7:36:33 Start Date: 03/17/17 Status: Orderedivermectin 3 mg oral tablet See Instructions, 4 tablet By Mouth daily for 2 days, # 8 tablet, 0 Refills, Soft Stop, 01/01/22 13:46:00 EST, [facility]/pharmacy #[id number], Partial fill upon patient request if the prescription is for a schedule II opioid drug., 152, cm, 01/01/22 10:49:00 EST,... Start Date: 01/01/22 Status: OrderedLasix 20 mg oral tablet 20 mg, 1, tablet, By Mouth, 2 times a day, # 180 tablet, Refills 1, Tot. Refills 1, Maintenance, 07/18/18 13:02:22 EDT, Route to Pharmacy Electronically, [id number], [facility]/pharmacy #[id number], pt is no longer taking torsemide, pleas... Start Date: 07/18/18 Stop Date: 01/14/19 Status: Orderedlosartan 25 mg oral tablet 1 tablet = 25 mg, By Mouth, Daily, # 30 tablet, 0 Refills, Maintenance, 05/06/21 9:22:00 EDT, Tablet, Partial fill upon patient request if the prescription is for a schedule II opioid drug. Start Date: 05/06/21 Status: OrderedmetFORMIN 500 mg oral tablet 1 tablet = 500 mg, By Mouth, 2 times a day, # 180 tablet, 0 Refills, Maintenance, 09/20/18 10:08:31 EDT, Tablet Start Date: 09/20/18 Status: Orderedmetoprolol 200 mg oral tablet, extended release 1 tablet = 200 mg, By Mouth, Daily, # 90 tablet, 1 Refills, Maintenance, 10/04/19 12:53:55 EST, ER Tablet, please bubble pack Start Date: 10/04/19 Status: OrderedMiscellaneous Rx By Mouth, Daily, 0 Refills, Maintenance, Daily-Eve/Iron, 10/31/21 11:04:00 EST Start Date: 10/31/21 Status: Orderedmontelukast 10 mg oral tablet 10 mg, 1, tablet, By Mouth, Daily, Refills 0, Maintenance, 12/12/19 11:38:00 EST Start Date: 12/12/19 Status: Orderedmorphine 30 mg/8 to 12 hr oral tablet, extended release TOME REMA TABLETA POR V A ORAL CADA DOCE HORAS CUANDO SEA NECESARIO PARA EL DOLOR Start Date: 05/06/21 Status: OrderedMultivitamin Daily, 0 Refills, Maintenance, 07/02/17 11:28:47 Start Date: 07/02/17 Status: Orderednitroglycerin 0.4 mg sublingual tablet 1 tablet = 0.4 mg, Sublingual, Every 5 minutes, PRN for chest pain, # 100 tablet, 0 Refills, Maintenance, 10/01/17 10:21:19, Tablet Start Date: 10/01/17 Status: Orderedomeprazole 40 mg oral enteric coated capsule 1 capsule = 40 mg, By Mouth, Daily, # 30 capsule, 0 Refills, Maintenance, 03/17/17 7:36:49, EC Capsule Start Date: 03/17/17 Status: Orderedondansetron 4 mg oral tablet TOME DOS TABLETAS POR V A ORAL CADA OCHO HORAS Start Date: 05/06/21 Status: OrderedoxyCODONE 5 mg oral tablet 2.5 mg, 0.5, tablet, By Mouth, Every 6 hours, PRN, Refills 0, Tot. Refills 0, Maintenance, as neededfor pain, 05/06/21 9:26:00 EDT, Partial fill upon patient request if the prescription is for a schedule II opioid drug. Start Date: 05/06/21 Status: OrderedProAir HFA 90 mcg/inh inhalation aerosol with adapter 2, puffs, Inhalation, 4 times a day, PRN, # 1 each, Refills 6, Tot. Refills 6, Maintenance, 08/29/1810:49:49 EDT, Route to Pharmacy Electronically, [id number], [facility]/pharmacy #[id number] Start Date: 08/29/18 Status: Orderedsacubitril-valsartan 24 mg-26 mg oral tablet 1 tablet, By Mouth, 2 times a day, # 180 tablet, 1 Refills, Maintenance, 10/04/19 13:21:10 EST, Tablet, this replaces losartan, please bubble pack; please disregard rx for 3 tabs bid, 1 tablet By Mouth2 times a day Start Date: 10/04/19 Status: OrderedSpiriva HandiHaler 18 mcg Inhalation Capsule 1 capsule = 18 mcg, Inhalation, Daily, # 30 capsule, 6 Refills, Maintenance, 08/29/18 10:47:41 EDT, 1 capsule Inhalation Daily Start Date: 08/29/18 Status: OrderedSymbicort 160mcg/4.5mcg Inhaler 2, puffs, Inhalation, 2 times a day, j45.40, # 1 each, Refills 6, Tot. Refills 6, Maintenance, 03/31/21 16:04:00 EDT, Aerosol, Route to Pharmacy Electronically, [id number], [facility]/pharmacy #[id number], 152, cm, 02/27/20 10:13:00 EDT,... Start Date: 03/31/21 Status: OrderedtraMADol 50 mg oral tablet 1 tablet = 50 mg, By Mouth, Every 12 hours, PRN as needed for pain, 0 Refills, Maintenance, 12/12/2010:40:00 EST, Tablet Start Date: 12/12/19 Status: OrderedTylenol Arthritis Tylenol Arthritis, By Mouth, 0 Refills, Maintenance, 2 tabs as needed, 10/31/21 11:10:00 EST Start Date: 10/31/21 Status: Orderedwarfarin 2 mg oral tablet 1 tablet = 2 mg, By Mouth, Daily, # 30 tablet, 0 Refills, Maintenance, 05/06/21 9:27:00 EDT, Tablet,Partial fill upon patient request if the prescription is for a schedule II opioid drug. Start Date: 05/06/21 Status: Ordered Problem List Condition Effective Dates Status Health Status Informant NSTEMI (non-ST elevated myocardial 03/2014 Active infarction)(Confirmed) Allergic rhinitis(Confirmed) Active Asthma(Confirmed) Active Cardiomyopathy with implantable Active cardioverter-defibrillator(Confirmed)1 Chest pain not present(Confirmed) Active CAD (coronary artery Active disease)(Confirmed) Depression(Confirmed) Active Dyspnea(Confirmed) Active Fibromyalgia(Confirmed) Active GERD (gastroesophageal reflux Active disease)(Confirmed) Heart failure with reduced ejection Active fraction(Confirmed) Hiatal hernia(Confirmed) Active History of CVA (cerebrovascular Active accident)(Confirmed)2 History of COVID-19(Confirmed) Active HTN - Hypertension(Confirmed) Active Hyperlipidemia(Confirmed) Active Pancreas cancer(Confirmed) Active Type 2 diabetes mellitus(Confirmed) Active 1s/p ICD Biventricular upgrade [id number] Plavix Social History Social History Type Response Smoking Status Never smoker; Tobacco user i n household: No entered on: 07/02/17 Sex Female
--- OUTSIDE RECORDS SUMMARY | 2022-10-06 15:59 | XMS_ITS | Continuity of Care Document ---
:1950 Author Organization [facility] Address [address] [place] [address]- Care Team Providers Name Role Phone Malika Mayer MD Primary Care Physician [place] [facility] [place]22 [facility] [address] [place], [place] [address] Allergies, Adverse Reactions, Alerts No Known Allergies Immunizations Not Given Vaccine Date Status Refusal Reason pneumococcal 23-valent vaccine1 04/13/14 Not Given Patient Refuses 1Result Note: patient states she will follow up with her PCP, she does not know if she received this year Medications albuterol-ipratropium 3 mg-0.5 mg/3 ml inhalation solution INHALE 3 M (1 VIAL) VIA NEBULIZER EVERY 4-6H 30 DAYS NEEDED FOR WHEEZING Start Date: 02/20/22 Status: OrderedALPRAZolam 0.25 mg oral tablet TOME REMA TABLETA DOS VECES AL D A Start Date: 02/20/22 Status: Orderedamiodarone 200 mg oral tablet TAKE 1 TABLET BY MOUTH DAILY Start Date: 05/06/21 Status: Orderedamitriptyline 25 mg oral tablet TOME REMA TABLETA MONTY Uribe AL ACOSTARSE FOR 30 DAYS Start Date: 02/20/22 Status: Orderedaspirin 81 mg oral tablet 1 tablet = 81 mg, By Mouth, Daily, # 90 tablet, 1 Refills, Maintenance, 10/04/19 12:52:57 EST, Tablet, please bubble pack Start Date: 10/04/19 Stop Date: 04/01/20 Status: Orderedatorvastatin 40 mg oral tablet 1 tablet = 40 mg, By Mouth, Daily, # 90 tablet, 1 Refills, Maintenance, 10/04/19 12:56:49 EST, Tablet, please bubble pack Start Date: 11/13/19 Stop Date: 04/01/20 Status: Orderedbetamethasone-clotrimazole 0.05%-1% topical cream APPLY 1 APPLICATION TOPICALLY DOS VECES AL D A Start Date: 02/20/22 Status: Orderedcalcium (as carbonate)-vitamin D 600 mg-800 [...] DAY ORALLY 90 Start Date: 05/06/21 Status: OrderedDaily Eve oral tablet TAKE 1 TABLET BY MOUTH DAILY Start Date: 02/20/22 Status: OrdereddiphenhydrAMINE 25 mg oral capsule 1 [...] 11:41:00 EST, Capsule Start Date: 12/12/19 Status: OrderedEliquis 5 mg oral tablet TOME REMA TABLETA DOS VECES AL D A Start Date: 02/20/22 Status: Orderedferrous gluconate 324 mg (37.5 mg elemental iron) oral tablet TOME REMA TABLETA TODOS LOS D Start Date: 05/06/21 Status: Orderedgabapentin 300 mg oral capsule TOME 1 CAPSULA POR VIA ORAL AL ACOSTARSE 30 Start Date: 02/20/22 Status: Orderedlosartan 25 mg oral tablet 1 [...] please bubble pack Start Date: 10/04/19 Status: Orderedmontelukast 10 mg oral tablet 10 mg, 1, tablet, By Mouth, Daily, Refills 0, Maintenance, 12/12/19 11:38:00 EST Start Date: 12/12/19 Status: Orderedmorphine 30 mg/8 to 12 hr oral tablet, extended release TOME REMA TABLETA POR V A ORAL EVER 12 HOURS FOR MODERATE PAIN Start Date: 02/20/22 Status: Orderednitroglycerin 0.4 mg sublingual tablet 1 [...] 05/06/21 Status: OrderedoxyCODONE 5 mg oral tablet TAKE 1 TABLET BY MOUTH EVERY 6 HOURS NEEDED FOR BREAKTHROUGH PAIN, MODERATE Start Date: 02/20/22 Status: OrderedProAir HFA 90 mcg/inh inhalation aerosol with adapter 2, puffs, Inhalation, 4 times a day, PRN, # 1 each, Refills 6, Tot. Refills 6, Maintenance, 08/29/1810:49:49 EDT, Route to Pharmacy Electronically, [id number], [facility]/pharmacy #[id number] Start Date: 08/29/18 Status: OrderedSpiriva HandiHaler 18 mcg Inhalation Capsule 1 capsule = 18 mcg, Inhalation, Daily, # 30 capsule, 6 Refills, Maintenance, 08/29/18 10:47:41 EDT, 1 capsule Inhalation Daily Start Date: 08/29/18 Status: OrderedSymbicort 160mcg/4.5mcg Inhaler See Instructions, TOME DOS INHALACIONES POR VIA ORAL DOS VECES AL [place]ARY, # 30.6 each, Refills 1, Instructions Replace Required Details, Route to Pharmacy Electronically, [id number], [id number], 153, cm, 02/26/22 9:49:00 ED... Start Date: 04/10/22 Status: Ordered Problem List Condition Effective Dates [...] diabetes mellitus(Confirmed) Active 1s/p ICD Biventricular upgrade [id number] Plavix Social History Social History Type Response Smoking Status Never smoker; Tobacco user i n household: No entered on: 07/02/17 Sex Female
--- OUTSIDE RECORDS SUMMARY | 2022-10-06 15:59 | XMS_ITS | Continuity of Care Document ---
:1950 Author Organization [facility] Address [address] [place] [address]- Care Team Providers Name Role Phone Malika Mayer MD Primary Care Phys[id number] Date(s): 12/12/19 - 03/21/20 [facility] [address] [place] [address] Attending Physician: Nahid Herrera MD Admitting Physician: Nahid Herrera MD Referring Physician: Malika Mayer MD Allergies, Adverse Reactions, Alerts Substance Reaction Severity Status NKA Active Immunizations Not Given Vaccine Date Status Refusal Reason pneumococcal 23-valent vaccine1 04/13/14 Not Given Patient Refuses 1Result Note: patient states she will follow up with her PCP, she does not know if she received this year Medications Aerochamber See Instructions, # 1 each, Maintenance, use [...] 0, Maintenance, 10/19/18 11:18:04 EST Start Date: 11/28/18 Status: OrderedArnuity Ellipta 200 mcg inhalation powder [...] 10:20:41 EST, Tablet Start Date: 10/01/17 Status: Orderedclopidogrel 75 mg oral tablet 75 mg, 1, tablet, By Mouth, Daily, # 90 tablet, Refills 1, Tot. Refills 1, Maintenance, 10/04/19 12:58:56 EST, Route to Pharmacy Electronically, [id number], [facility]/pharmacy #[id number], please bubble pack Start Date: 10/04/19 Stop Date: 04/01/20 Status: OrderedCoumadin 4 mg oral tablet 1 tablet = 4 mg, By Mouth, Daily, 0 Refills, Maintenance, 02/27/20 10:18:00 EDT Start Date: 02/27/20 Status: Ordereddocusate sodium 100 mg oral capsule 1 capsule = 100 mg, By Mouth, 2 times a day, PRN as needed for constipation, # 20 capsule, 0 Refills, Maintenance, 12/12/19 11:41:00 EST, Capsule Start Date: 12/12/19 Status: OrderedFerrous Gluconate Ferrous Gluconate, 324 mg, By Mouth, Daily, Refills 0, Maintenance, 05/23/19 11:23:00 EDT, Compound Start Date: 05/23/19 Status: Orderedferrous sulfate 325 mg oral enteric coated tablet 325 mg, 1, tablet, By Mouth, Daily, # 30 tablet, Refills 0, Maintenance, 10/01/17 10:20:55 Start Date: 10/01/17 Status: Orderedfluticasone 50 mcg/inh nasal spray TAKE 1 SPRAY IN EACH NOSTRIL ONCE A DAY NASALLY 30 DAY(S) Start Date: 02/28/18 Status: Orderedgabapentin 300 mg oral capsule 300 mg, 1, capsule, By Mouth, 2 times a day, Refills 0, Maintenance, 03/17/17 7:36:33 Start Date: 03/17/17 Status: OrderedLasix 20 mg oral tablet 20 mg, 1, tablet, By Mouth, 2 times a day, # 180 tablet, Refills 1, Tot. Refills 1, Maintenance, 07/18/18 13:02:22 EDT, Route to Pharmacy Electronically, [id number], [facility]/pharmacy #[id number], pt is no longer taking torsemide, pleas... Start Date: 07/18/18 Stop Date: 01/14/19 Status: OrderedmetFORMIN 500 mg oral tablet 1 [...] 12/12/19 11:38:00 EST Start Date: 12/12/19 Status: OrderedMultivitamin Daily, 0 Refills, Maintenance, 07/02/17 [...] 7:36:49, EC Capsule Start Date: 03/17/17 Status: OrderedProAir HFA 90 mcg/inh inhalation aerosol with adapter 2, puffs, Inhalation, 4 times a day, PRN, # 1 each, Refills 6, Tot. Refills 6, Maintenance, 08/29/1810:49:49 EDT, Route to Pharmacy Electronically, [id number], [facility]/pharmacy #[id number] Start Date: 08/29/18 Status: Orderedsacubitril-valsartan 24 mg-26 [...] 2, puffs, Inhalation, 2 times a day, # 1 each, Refills 6, Tot. Refills 6, Maintenance, 01/05/20 16:38:00 EST, Aerosol, Route to Pharmacy Electronically, [id number], [facility]/pharmacy #[id number], 152, cm, 12/12/19 11:33:00 EST, Height Start Date: 01/05/20 Status: OrderedtraMADol 50 mg oral tablet 1 tablet = 50 mg, By Mouth, Every 12 hours, PRN as needed for pain, 0 Refills, Maintenance, 12/12/2010:40:00 EST, Tablet Start Date: 12/12/19 Status: Ordered Problem List Condition Effective Dates [...] Active History of CVA (cerebrovascular Active accident)(Confirmed)2 HTN - Hypertension(Confirmed) Active Hyperlipidemia(Confirmed) Active Type 2 diabetes mellitus(Confirmed) Active 1s/p ICD Biventricular upgrade [id number] Plavix Social History Social History Type Response Smoking Status Never smoker; Tobacco user i n household: No entered on: 07/02/17 Sex Female
--- OUTSIDE RECORDS SUMMARY | 2022-10-06 15:59 | XMS_ITS | Continuity of Care Document ---
:1950 Author Organization [facility] Address [address] [place] [address]- Care Team Providers Name Role Phone Malika Mayer MD Primary Care Physician [place] [facility] [place] 11/01/20 - 12/01/20 [facility] [address] [place] [id number] Allergies, Adverse Reactions, Alerts Substance Reaction Severity [...] 10/19/18 11:18:04 EST Start Date: 10/19/18 Status: OrderedArnuity Ellipta 200 mcg inhalation powder [...] 10/04/19 12:58:56 EST, Route to Pharmacy Electronically, [id number], [facility]/pharmacy #[id number], please bubble pack Start Date: 10/04/19 Stop [...] 07/18/18 13:02:22 EDT, Route to Pharmacy Electronically, [id number], [facility]/pharmacy #[id number], pt is no longer taking torsemide, pleas... [...] Maintenance, 08/29/1810:49:49 EDT, Route to Pharmacy Electronically, [id number], [facility]/pharmacy #[id number] Start Date: 08/29/18 Status: Orderedsacubitril-valsartan 24 [...] 16:38:00 EST, Aerosol, Route to Pharmacy Electronically, [id number], [facility]/pharmacy #[id number], 152, cm, 12/12/19 11:33:00 EST, Height [...] diabetes mellitus(Confirmed) Active 1s/p ICD Biventricular upgrade [id number] Plavix Social History Social History Type Response Smoking Status Never smoker; Tobacco user i n household: No entered on: 07/02/17 Sex Female
--- OUTSIDE RECORDS SUMMARY | 2022-10-06 15:59 | XMS_ITS | Continuity of Care Document ---
:1950 Author Organization [facility] Address [address] [place] [address] [address] [place] [address]- Care Team Providers Name Role Phone Malika Mayer MD Primary Care Physician Encounter [facility] ACCT R [id number] Date(s): 02/27/20 - 03/08/20 [facility] [address] [place] [address]- [facility] Attending Physician: Dallas Sweet Admitting Physician: AdmtrDallas Referring Physician: Admtr, ArAngelito Allergies, Adverse Reactions, Alerts Substance Reaction Severity [...] 10/04/19 12:58:56 EST, Route to Pharmacy Electronically, [id number], [facility]/pharmacy #[id number], please bubble pack Start Date: 10/04/19 Stop [...] 07/18/18 13:02:22 EDT, Route to Pharmacy Electronically, [id number], [facility]/pharmacy #[id number], pt is no longer taking torsemide, pleas... [...] Maintenance, 08/29/1810:49:49 EDT, Route to Pharmacy Electronically, [id number], [facility]/pharmacy #[id number] Start Date: 08/29/18 [...] 16:38:00 EST, Aerosol, Route to Pharmacy Electronically, [id number], [facility]/pharmacy #[id number], 152, cm, 12/12/19 [...] diabetes mellitus(Confirmed) Active 1s/p ICD Biventricular upgrade [id number] Plavix Social History Social History Type Response Smoking Status Never smoker; Tobacco user i n household: No entered on: 07/02/17 Sex Female
--- OUTSIDE RECORDS SUMMARY | 2022-10-06 15:59 | XMS_ITS | Continuity of Care Document ---
:1950 Author Organization [facility] Address [address] [place] [address]- Care Team Providers Name Role Phone Po Malika TAYLOR Primary Care Physician Encounter [facility] Date(s): 02/20/22 - 02/26/[address] [address] Encounter Diagnosis Nausea (Final) - 02/20/22 Discharge Disposition: A-D/C Home Attending Physician: Faustino Avitia MD Admitting Physician: Margarito Mireles MD Referring Physician: Not on Staff, Referring MD Allergies, Adverse Reactions, Alerts No Known Allergies [...] 25 mg oral tablet TOME REMA TABLETA TOPRECIOUS LOS D AL ACOSTARSE FOR 30 DAYS Start Date: 02/20/22 Status: OrderedArnuity Ellipta 200 mcg inhalation powder [...] Start Date: 10/04/19 Stop Date: 04/01/20 Status: Orderedbetamethasone-clotrimazole 0.05%-1% topical [...] II opioid drug. Start Date: 05/06/21 Status: Orderedlosartan 25 mg oral tablet 25 mg, Tablet, By Mouth, 02/26/22 9:00:00 EDT Start Date: 02/26/22 Stop Date: 02/26/22 Status: CompletedmetFORMIN 500 mg oral tablet 1 tablet = 500 mg, By Mouth, 2 times a day, # 180 tablet, 0 Refills, Maintenance, 09/20/18 10:08:31 EDT, Tablet Start Date: 09/20/18 Status: Orderedmetoprolol 100 mg oral tablet, extended release 200 mg, XL Tablet, By Mouth, 02/26/22 9:00:00 EDT Start Date: 02/26/22 Stop Date: 02/26/22 Status: Completedmetoprolol 200 mg oral tablet, extended release 1 [...] FOR MODERATE PAIN Start Date: 02/20/22 Status: OrderedMorPHINE CR Tablet 30 mg, CR Tablet, By Mouth, 02/26/22 10:00:00 EDT Start Date: 02/26/22 Stop Date: 02/26/22 Status: Completednitroglycerin 0.4 mg sublingual tablet 1 tablet = [...] Maintenance, 08/29/1810:49:49 EDT, Route to Pharmacy Electronically, [id number], [facility]/pharmacy #[id number] Start Date: 08/29/18 Status: OrderedSpiriva HandiHaler 18 mcg Inhalation Capsule 1 capsule = 18 mcg, Inhalation, Daily, # 30 capsule, 6 Refills, Maintenance, 08/29/18 10:47:41 EDT, 1 capsule Inhalation Daily Start Date: 08/29/18 Status: OrderedSymbicort 160mcg/4.5mcg Inhaler 2, puffs, Inhalation, 2 times a day, j45.40, # 1 each, Refills 6, Tot. Refills 6, Maintenance, 03/31/21 16:04:00 EDT, Aerosol, Route to Pharmacy Electronically, [id number], [facility]/pharmacy #[id number], 152, cm, 02/27/20 10:13:00 EDT,... Start Date: 03/31/21 Status: Ordered Problem List Condition Effective Dates [...] diabetes mellitus(Confirmed) Active 1s/p ICD Biventricular upgrade 02/[id number] Plavix Results Orders for Microbiology Reports Name Date Stool Culture 02/23/22 Blood Culture 02/20/22 Blood Culture #2 02/20/22 Microbiology Reports TEST:Stool Culture STATUS:Auth (Verified) BODY SITE: SOURCE:STOOL COLLECTED DATE/TIME:02/23/22 6:55 PMStool Culture SPECIMEN DESCRIPTION : STOOL IN DEREK ALONZO PRESERVATIVE SPECIAL REQUESTS : NONE CULTURE : SHIGA TOXIN 1 AND 2 NOT DETECTED NO SALMONELLA, SHIGELLA, CAMPYLOBACTER OR AEROMONAS ISOLATED REPORT STATUS : FINAL 02/26/2022TEST:Blood Culture STATUS:Auth (Verified) BODY SITE: SOURCE:Blood COLLECTED DATE/TIME:02/20/22 11:53 AMBlood Culture SPECIMEN DESCRIPTION : BLOOD NONE SPECIAL REQUESTS : NONE CULTURE : NO GROWTH 5 DAYS. REPORT STATUS : FINAL 02/25/2022TEST:Blood Culture, Second Order STATUS:Auth (Verified) BODY SITE: SOURCE:Blood COLLECTED DATE/TIME:02/20/22 11:53 AMBlood Culture, Second Order SPECIMEN DESCRIPTION : BLOOD L ARM SPECIAL REQUESTS : NONE CULTURE : NO GROWTH 5 DAYS. REPORT STATUS : FINAL 2Radiology Reports Exam Date Time Procedure Performing Provider Status 02/24/22 10:21 AM Abdomen AP Do , Adam; Auth (Verified) Notes:(Abdomen AP) Reason For Exam: Nausea/VomitingRESULT: XR Abdomen AP XR Abdomen AP 1 view INDICATION: Nausea, vomiting, concern for obstruction. COMPARISON: CT FINDINGS: Partially visualized cardiac leads in the lower thoracic region. Nonspecific, nonobstructive bowel gas pattern. No evidence of obstruction. No evidence of pneumoperitoneum. No acute bone findings. IMPRESSION: No evidence of acute abnormality. I have personally reviewed the images and I agree with this report. WSN: [id number] Ordering Physician: Sofi Garcia Dictated By: Paolo Anderson MD Dictated Date/Time: 02/24/22 11:10 a Reviewed By: Jero King MD Signed By: Jero King MD Signed Date/Time: 02/24/22 11:15 am Transcribed By: CORTEZ Transcribed Date/Time: 02/24/22 10:35 am Exam Date Time Procedure Performing Provider Status 02/20/22 11:58 AM Chest Portable Do , Adam; Auth (Verified) Notes:(Chest Portable) Reason For Exam: Shortness of BreathRESULT: Chest Portable Chest Portable HX OF PRESENT ILLNESS: pt had chemo yesterday - c o nausea and vomiting since last night. c o chills, and headache as well. pt c o SOB, hx of asthma - LSCA. c o abd pain. n v d. took zofran this am.; Reason: Shortness of Breath; Clinical Question(s): Pneumonia; Power port? / Pneumonia COMPARISON: 05/06/2021. FINDINGS: LINES AND TUBES: Triple-lead left subclavian pacer/ICD wires are intact. Right chest Port-A-Cath in place. LUNGS AND PLEURA: Clear lungs. Normal pulmonary vascularity. No pleural effusion. No pneumothorax. HEART, MEDIASTINUM AND ISMAEL: Heart is normal in size. Intrathoracic stomach, not significantly changed from multiple prior exams. BONES AND SOFT TISSUES: No acute abnormality. IMPRESSION: No evidence of acute abnormality. WSN: [id number] Ordering Physician: Radhika Torres Dictated By: Jero King MD Dictated Date/Time: 02/20/22 12:00 p Reviewed By: Jero King MD Signed By: Jero King MD Signed Date/Time: 02/20/22 12:00 pm Transcribed By: CORTEZ Transcribed Date/Time: 02/20/22 11:59 am Vital Signs Most recent to oldest [Reference 1 2 3 Range]: Height 153 cm 153 cm 153 cm (02/26/22 9:49 AM) (02/26/22 4:42 AM) (02/25/22 8:11 P M) Weight 59.1 kg 59.1 kg (02/21/22 4:47 AM) (02/21/22 4:09 AM) Oxygen Saturation [94-100 %] 97 % 95 % 100 % (02/26/22 9:49 AM) (02/26/22 4:42 AM) (02/25/22 8:11 P M) Pulse Rate [55-90 bpm] 73 bpm 73 bpm 62 bpm (02/26/22 10:12 AM) (02/26/22 9:49 AM) (02/26/22 4:42 AM) Body Mass Index [18.5-24.99] 25.25 25.25 *H* *H* (02/21/22 4:47 AM) (02/21/22 4:09 AM) Blood Pressure [90-138/55-84 mm 133/68 mm Hg 133/68 mm Hg 133/68 mm Hg Hg] (02/26/22 10:12 AM) (02/26/22 10:05 AM) (02/26/22 9:49 AM) Respiratory Rate [16-30 br/min] 18 br/min 17 br/min 18 br/min (02/26/22 10:02 AM) (02/26/22 9:49 AM) (02/26/22 4:42 AM) Temperature [96.8-100.4 DegF] 98.6 DegF 98.0 DegF 98 .7 DegF (02/26/22 9:49 AM) (02/26/22 4:42 AM) (02/25/22 8:11 P M) Mode of Delivery (Oxygen) Room air Room air Room a ir (02/26/22 9:49 AM) (02/26/22 4:42 AM) (02/25/22 8:11 P M) Blood pressure sites Arm, right Arm, left Arm, left (02/26/22 9:49 AM) (02/26/22 4:42 AM) (02/25/22 8:11 P M) Temperature Route Oral Oral Oral (02/26/22 9:49 AM) (02/26/22 4:42 AM) (02/25/22 8:11 P M) Dry Weight 59.1 kg (02/21/22 4:47 AM) Weight Obtained Via Bed scale (02/21/22 4:09 AM) Social History Social History Type Response Smoking Status Never smoker; Tobacco user i n household: No entered on: 07/02/17 Sex Female
--- OUTSIDE RECORDS SUMMARY | 2022-10-06 15:59 | XMS_ITS | Continuity of Care Document ---
:1950 Author Organization [facility] Address [address] [place] [address]- Care Team Providers Name Role Phone Malika Mayer MD Primary Care Physician Encounter [facility] ACCT R [id number] Date(s): 12/19/19 - 12/29/19 [facility] [address] [place] [address]- [facility] Attending Physician: Dallas Sweet Admitting Physician: AdmDallas gregory Referring Physician: AdmtrDallas Allergies, Adverse Reactions, Alerts Substance Reaction Severity [...] 10/04/19 12:58:56 EST, Route to Pharmacy Electronically, [id number], [facility]/pharmacy #[id number], please bubble pack Start Date: 10/04/19 Stop Date: 04/01/20 Status: Ordereddocusate sodium 100 mg oral capsule [...] 07/18/18 13:02:22 EDT, Route to Pharmacy Electronically, [id number], [facility]/pharmacy #[id number], pt is no longer taking torsemide, pleas... [...] Maintenance, 08/29/1810:49:49 EDT, Route to Pharmacy Electronically, [id number], [facility]/pharmacy #[id number] Start Date: 08/29/18 Status: Orderedsacubitril-valsartan [...] puffs, Inhalation, 2 times a day, # 10.2 Gm, Refills 6, Tot. Refills 6, Maintenance, 05/23/19 12:20:19 EDT, Aerosol, Route to Pharmacy Electronically, [id number], [facility]/pharmacy #[id number] Start Date: 05/23/19 Status: OrderedtraMADol 50 mg oral tablet 1 tablet = 50 mg, By Mouth, Every 12 hours, PRN as needed for pain, 0 Refills, Maintenance, 12/12/2010:40:00 EST, Tablet Start Date: 12/12/19 Status: Ordered Problem List Condition Effective Dates Status Health Status Informant NSTEMI (non-ST elevated myocardial 03/2014 Active infarction)(Confirmed) Allergic rhinitis(Confirmed) Active Cardiomyopathy with implantable Active cardioverter-defibrillator(Confirmed)1 Chest pain not present(Confirmed) Active CAD (coronary artery Active disease)(Confirmed) Depression(Confirmed) Active Fibromyalgia(Confirmed) Active GERD (gastroesophageal reflux Active disease)(Confirmed) Heart failure with reduced ejection Active fraction(Confirmed) Hiatal hernia(Confirmed) Active History of CVA (cerebrovascular Active accident)(Confirmed)2 HTN - Hypertension(Confirmed) Active Hyperlipidemia(Confirmed) Active Type 2 diabetes mellitus(Confirmed) Active 1s/p ICD Biventricular upgrade 02/[id number] Plavix Social History Social History Type Response Smoking Status Never smoker; Tobacco user i n household: No entered on: 07/02/17 Sex Female
--- OUTSIDE RECORDS SUMMARY | 2022-10-06 15:59 | XMS_ITS | Continuity of Care Document ---
:1950 Author Organization [facility] Address [address] [place] [address]- Care Team Providers Name Role Phone Malika Mayer MD [id number]26[facility]22 [facility] [address] [place] [address]- Attending Physician: Saida Newman MD Admitting Physician: Saida Newman MD Referring Physician: Malika Mayer MD Allergies, Adverse Reactions, Alerts No Known [...] 25 mg oral tablet TOME REMA TABLETA TODOS LOS D AL ACOSTARSE FOR 30 DAYS Start Date: 02/20/22 Status: OrderedArnuity Ellipta 200 mcg inhalation powder 1 puffs = 200 mcg, Inhalation, Every 24 hours, # 30 each, 6 Refills, Maintenance, 05/23/19 12:20:38 EDT, Powder Start Date: 05/23/19 Status: Orderedaspirin 81 mg oral tablet 1 tablet = 81 mg, By Mouth, Daily, # 90 tablet, 1 Refills, Maintenance, 11/13/19 12:52:57 EST, Tablet, please bubble pack Start [...] Maintenance, 08/29/1810:49:49 EDT, Route to Pharmacy Electronically, [id number], [facility]/pharmacy #[id number] Start Date: 08/29/18 Status: OrderedSpiriva HandiHaler 18 mcg Inhalation Capsule 1 capsule = 18 mcg, Inhalation, Daily, # 30 capsule, 6 Refills, Maintenance, 08/29/18 10:47:41 EDT, 1 capsule Inhalation Daily Start Date: 08/29/18 Status: OrderedSymbicort 160mcg/4.5mcg Inhaler 2, puffs, Inhalation, 2 times a day, j45.40, # 1 each, Refills 6, Tot. Refills 6, Maintenance, 03/31/21 16:04:00 EDT, Aerosol, Route to Pharmacy Electronically, [id number], [facility]/pharmacy #[id number], 152, cm, 02/27/20 10:13:00 EDT,... Start [...] diabetes mellitus(Confirmed) Active 1s/p ICD Biventricular upgrade 02/[id number] Plavix Social History Social History Type Response Smoking Status Never smoker; Tobacco user i n household: No entered on: 07/02/17 Sex Female
--- OUTSIDE RECORDS SUMMARY | 2022-10-06 15:59 | XMS_ITS | Continuity of Care Document ---
:1950 Author Organization [facility] Address [address] [place] [address]- Care Team Providers Name Role Phone Malika Mayer MD Primary Care Physician Encounter [facility] ACCT R [id number] Date(s): 12/12/19 - 12/19/[address] [address]- [facility] Attending Physician: Delaney Souza NP Allergies, Adverse Reactions, Alerts Substance Reaction Severity [...] 10/04/19 12:58:56 EST, Route to Pharmacy Electronically, [id number], [facility]/pharmacy #[id number], please bubble pack Start Date: 10/04/19 Stop [...] 07/18/18 13:02:22 EDT, Route to Pharmacy Electronically, [id number], [facility]/pharmacy #[id number], pt is no longer taking torsemide, pleas... [...] Maintenance, 08/29/1810:49:49 EDT, Route to Pharmacy Electronically, [id number], [facility]/pharmacy #[id number] Start Date: 08/29/18 Status: Orderedsacubitril-valsartan 24 mg-26 [...] 12:20:19 EDT, Aerosol, Route to Pharmacy Electronically, [id number], [facility]/pharmacy #[id number] Start Date: 05/23/19 Status: OrderedtraMADol 50 [...] diabetes mellitus(Confirmed) Active 1s/p ICD Biventricular upgrade 02/[id number] Plavix Social History Social History Type Response Smoking Status Never smoker; Tobacco user i n household: No entered on: 07/02/17 Sex Female
--- OUTSIDE RECORDS SUMMARY | 2022-10-06 15:59 | XMS_ITS | Continuity of Care Document ---
:1950 Author Organization [facility] Address [address] [place] [address]- Care Team Providers Name Role Phone Malika Mayer MD Primary Care Physician Encounter [facility] ACCT R [id number] Date(s): 02/27/20 - 03/05/20 [facility] [address] [place] [address] [facility] Encounter Diagnosis Asthma (Discharge Diagnosis) - 02/27/20 Dyspnea (Discharge Diagnosis) - 02/27/20 Allergic rhinitis (Discharge Diagnosis) - 02/27/20 Attending Physician: Nahid Herrera MD Allergies, Adverse Reactions, Alerts Substance Reaction [...] 10/04/19 12:58:56 EST, Route to Pharmacy Electronically, [id number], [facility]/pharmacy #[id number], please bubble pack Start Date: 10/04/19 Stop [...] 07/18/18 13:02:22 EDT, Route to Pharmacy Electronically, [id number], [facility]/pharmacy #207, pt is no longer taking torsemide, pleas... [...] Maintenance, 08/29/1810:49:49 EDT, Route to Pharmacy Electronically, [id number], [facility]/pharmacy #[id number] Start Date: 08/29/18 Status: Orderedsacubitril-valsartan 24 [...] 16:38:00 EST, Aerosol, Route to Pharmacy Electronically, [id number], [facility]/pharmacy #[id number], 152, cm, 12/12/19 11:33:00 EST, Height [...] diabetes mellitus(Confirmed) Active 1s/p ICD Biventricular upgrade 02/[id number] Plavix Diagnosis Diagnosis Type Effective Dates Health Status Clinical In formant Service Asthma Discharge 02/27/20 Diagnosis Dyspnea Discharge 02/27/20 Diagnosis Allergic Discharge 02/27/20 rhinitis Diagnosis Vital Signs Most recent to oldest [Reference Range]: 1 Height 152 cm (02/27/20 10:13 AM) Weight 56.81 kg (02/27/20 10:13 AM) Body Mass Index [18.5-24.99] 24.59 (02/27/20 10:13 AM) Weight Obtained Via Patient/family stated (02/27/20 10:13 AM) Social History Social History Type Response Smoking Status Never smoker; Tobacco user i n household: No entered on: 07/02/17 Sex Female
--- OUTSIDE RECORDS SUMMARY | 2022-10-06 15:59 | XMS_ITS | Continuity of Care Document ---
:1950 Author Organization [facility] Address [address] [place] [address]- Care Team Providers Name Role Phone Malika Mayre MD Primary Care Physician Encounter [facility] Date(s): 10/04/19 - 12/23/19 [facility] [address] [place] [address]- [facility] Attending Physician: Delaney Souza NP Admitting Physician: Delaney Souza NP Referring Physician: Malika Mayer MD Allergies, Adverse [...] 10/04/19 12:58:56 EST, Route to Pharmacy Electronically, [id number], [facility]/pharmacy #[id number], please bubble pack Start Date: 10/04/19 Stop [...] 07/18/18 13:02:22 EDT, Route to Pharmacy Electronically, [id number], [facility]/pharmacy #[id number], pt is no longer taking torsemide, pleas... [...] Maintenance, 08/29/1810:49:49 EDT, Route to Pharmacy Electronically, [id number], [facility]/pharmacy #[id number] Start Date: 08/29/18 Status: [...] 12:20:19 EDT, Aerosol, Route to Pharmacy Electronically, [id number], [facility]/pharmacy #207 Start Date: 05/23/19 Status: OrderedtraMADol 50 mg [...] diabetes mellitus(Confirmed) Active 1s/p ICD Biventricular upgrade 02/[id number] Plavix Social History Social History Type Response Smoking Status Never smoker; Tobacco user i n household: No entered on: 07/02/17 Sex Female
--- OUTSIDE RECORDS SUMMARY | 2022-10-06 15:59 | XMS_ITS | Continuity of Care Document ---
:1950 Author Organization [facility] Address [address] [place] [address]- Care Team Providers Name Role Phone Malika Mayer MD Primary Care Physician Encounter [facility] Date(s): 07/22/20 - 08/21/20 [facility] [address] [place] [address]- [facility] Attending Physician: Dallas Sweet Admitting Physician: Dallas Sweet Referring Physician: AdmtrDallas Allergies, Adverse Reactions, Alerts [...] 10/04/19 12:58:56 EST, Route to Pharmacy Electronically, [id number], [facility]/pharmacy #[id number], please bubble pack Start Date: 10/04/19 Stop [...] 07/18/18 13:02:22 EDT, Route to Pharmacy Electronically, [id number], [facility]/pharmacy #[id number], pt is no longer taking torsemide, pleas... [...] Maintenance, 08/29/1810:49:49 EDT, Route to Pharmacy Electronically, [id number], [facility]/pharmacy #[id number] Start Date: 08/29/18 Status: [...] 16:38:00 EST, Aerosol, Route to Pharmacy Electronically, [id number], [facility]/pharmacy #[id number], 152, cm, 12/12/19 11:33:00 EST, [...] diabetes mellitus(Confirmed) Active 1s/p ICD Biventricular upgrade 02/[id number] Plavix Social History Social History Type Response Smoking Status Never smoker; Tobacco user i n household: No entered on: 07/02/17 Sex Female
--- OUTSIDE RECORDS SUMMARY | 2022-10-06 15:59 | XMS_ITS | Continuity of Care Document ---
:1950 Author Organization [facility] Address [address] [place] [address]- Care Team Providers Name Role Phone Malika Mayer MD [id number] - 03[facility]25/22 [facility] [address] [place] [address]- Attending Physician: Saida Newman MD Admitting Physician: [...] Maintenance, 08/29/1810:49:49 EDT, Route to Pharmacy Electronically, [id number], [facility]/pharmacy #[id number] Start Date: 08/29/18 Status: OrderedSpiriva [...] 16:04:00 EDT, Aerosol, Route to Pharmacy Electronically, [id number], [facility]/pharmacy #[id number], 152, cm, 02/27/20 10:13:00 EDT,... [...] diabetes mellitus(Confirmed) Active 1s/p ICD Biventricular upgrade 02/[id number] Plavix Social History Social History Type Response Smoking Status Never smoker; Tobacco user i n household: No entered on: 07/02/17 Sex Female
--- OUTSIDE RECORDS SUMMARY | 2022-10-06 15:59 | XMS_ITS | Continuity of Care Document ---
:1950 Author Organization [facility] Address [address] [place] [address]- Care Team Providers Name Role Phone Po Malika TAYLOR Primary Care Physician Encounter [facility] [place] Date(s): 09/07/22 - 09/08/[address] [address] Discharge Disposition: A-D/C Home Attending Physician: [place] Naidu MD Admitting Physician: Beka TAYLOR, Yessy Referring Physician: Not on Staff, Referring MD Allergies, Adverse Reactions, Alerts No Known Allergies Immunizations Given and Recorded Vaccine Date Status Refusal Reason influenza virus vaccine, inactivated1 09/08/22 Given influenza virus vaccine, inactivated 12/04/21 Recorded influenza virus vaccine, inactivated 08/19/20 Recorded influenza virus vaccine, inactivated 12/15/14 Recorded pneumococcal 23-valent vaccine 12/28/17 Recorded Not Given Vaccine Date Status Refusal Reason pneumococcal 23-valent vaccine2 04/13/14 Not Given Patient Refuses 1Result Comment: Discarded vaccine vial before putting information in jan.2 Result Note: patient states she will follow up with her PCP, she does not know if she received this year Medications ALPRAZolam 0.25 mg oral tablet TOME REMA TABLETA DOS VECES AL D A Start Date: 02/20/22 Status: Orderedamiodarone 100 mg oral tablet TOME REMA TABLETA ORALLY DAILY Start Date: 09/07/22 Status: Orderedamitriptyline 25 mg oral tablet TOME [...] 10/01/17 Status: OrderedcarBAMazepine 200 mg oral tablet 200 mg, 1, tablet, By Mouth, Daily, TAKE 1/2 TABLET POR V A ORAL [...] oral tablet 25 mg, Tablet, By Mouth, 09/08/22 9:00:00 EDT Start Date: 09/08/22 Stop Date: 09/08/22 Status: CompletedmetFORMIN 500 mg oral tablet 1 tablet = 500 mg, By Mouth, 2 times a day, # 180 tablet, 0 Refills, Maintenance, 09/20/18 10:08:31 EDT, Tablet Start Date: 09/20/18 Status: Orderedmetoprolol 100 mg oral tablet, extended release 200 mg, XL Tablet, By Mouth, 09/08/22 9:00:00 EDT Start Date: 09/08/22 Stop Date: 09/08/22 Status: Completedmetoprolol 200 mg oral tablet, extended release 1 tablet = 200 mg, By Mouth, Daily, # 90 tablet, 1 Refills, Maintenance, 10/04/19 12:53:55 EST, ER Tablet, please bubble pack Start Date: 10/04/19 Status: Orderedmontelukast 10 mg oral tablet 10 mg, 1, tablet, By Mouth, Daily, # 30 tablet, Refills 11, Tot. Refills 11, Maintenance, 07/14/22 11:05:00 EDT, Route to Pharmacy Electronically, [facility]/pharmacy #[id number], Partial fill upon patient request if the prescription is for a schedule II opioid . Start Date: 07/14/22 Status: Orderedmorphine 30 mg/8 to 12 hr oral tablet, extended release TOME REMA TABLETA POR V A ORAL EVER 12 HOURS FOR MODERATE PAIN Start Date: 02/20/22 Status: OrderedMorPHINE CR Tablet 30 mg, CR Tablet, By Mouth, 09/08/22 10:00:00 EDT Start Date: 09/08/22 Stop Date: 09/08/22 Status: Completednitroglycerin 0.4 mg sublingual tablet 1 [...] 05/06/21 Status: OrderedoxyCODONE 5 mg oral tablet 5 mg, Tablet, By Mouth, Every 4 hours, PRN for Pain , Moderate, Routine, 09/07/22 21:30:00 EDT Start Date: 09/07/22 Stop Date: 09/08/22 Status: DiscontinuedoxyCODONE 5 mg oral tablet TAKE 1 TABLET BY MOUTH EVERY 6 HOURS NEEDED FOR BREAKTHROUGH PAIN, MODERATE Start Date: 02/20/22 Status: OrderedProAir HFA 90 mcg/inh inhalation aerosol with adapter 2, puffs, Inhalation, 4 times a day, PRN, # 6.7 Gm, Refills 11, Tot. Refills 11, Maintenance, 07/14/22 11:04:00 EDT, Route to Pharmacy Electronically, [id number], [facility]/pharmacy#[id number], 153, cm, 07/14/22 10:45:00 EDT, Height, 59... Start Date: 07/14/22 Status: OrderedSpiriva HandiHaler 18 mcg Inhalation Capsule 1 capsule = 18 mcg, Inhalation, Daily, # 30 capsule, 6 Refills, Maintenance, 08/29/18 10:47:41 EDT, 1 capsule Inhalation Daily Start Date: 08/29/18 Status: OrderedSymbicort 160mcg/4.5mcg Inhaler See Instructions, TOME DOS INHALACIONES POR VIA ORAL DOS VECES [place], # 1 each, Refills 11, Tot. Refills 11, 07/14/22 11:04:00 EDT, Instructions Replace Required Details, Route to Pharmacy Electronically, [id number], [facility]/pha... Start Date: 07/14/22 Status: Ordered Problem List Condition Confirmation Course Effective Dates Status Health I nformant Status NSTEMI (non-ST Confirmed 03/2014 Active elevated myocardial infarction) Allergic rhinitis Confirmed Active Asthma Confirmed Active Cardiomyopathy with Confirmed Active implantable cardioverter-defibril lator1 Chest pain not Confirmed Active present CAD (coronary artery Confirmed Active disease) Depression Confirmed Active Dyspnea Confirmed Active Fibromyalgia Confirmed Active GERD Confirmed Active (gastroesophageal reflux disease) Heart failure with Confirmed Active reduced ejection fraction Hiatal hernia Confirmed Active History of CVA Confirmed Active (cerebrovascular accident)2 History of COVID-19 Confirmed Active HTN - Hypertension Confirmed Active Hyperlipidemia Confirmed Active Pancreas cancer Confirmed Active Pancreatic cancer Confirmed Active Type 2 diabetes Confirmed Active mellitus 1s/p ICD Biventricular upgrade 02/[id number] Plavix Results Radiology Reports Exam Date Time Procedure Performing Provider Status 09/07/22 12:55 PM Chest 2 Views Frontal and Lat Scott Valdez; Auth (Verified) Notes:(Chest 2 Views Frontal and Lat) Reason For Exam: AnginaRESULT: Chest 2 Views Frontal and Lat Chest 2 Views Frontal and Lat Hx of Present Illness: General body aches throughout body including chest. Patient also reports increased SOB that when breathing deep increases the anterior chest pain. Pt reports different pain starting this am over belly button and increases with palpation. Also endorses; Reason: Angina; Clinical Qu estion(s): CHF COMPARISON: 07/14/2022 FINDINGS: LINES AND TUBES: Triple-lead left subclavian pacer/AICD wires are intact. LUNGS AND PLEURA: Clear lungs. Normal pulmonary vascularity. No pleural effusion. No pneumothorax. HEART, MEDIASTINUM AND ISMAEL: Mild prominence of the cardiac silhouette. There is a large hiatal hernia. BONES AND SOFT TISSUES: No acute abnormality. IMPRESSION: No acute abnormality. Large paraesophageal hiatal hernia. Cardiac enlargement without evidence for CHF. WSN: [id number] Ordering Physician: Radha King Dictated By: Jero Diaz MD Dictated Date/Time: 09/07/22 1:00 pm Reviewed By: Jero Diaz MD Signed By: Jero Diaz MD Signed Date/Time: 09/07/22 1:00 pm Transcribed By: CORTEZ Transcribed Date/Time: 09/07/22 12:59 pm Vital Signs Most recent to oldest 1 2 3 [Reference Range]: Height 154.94 cm 154.94 cm 154.94 cm (09/08/22 7:27 AM) (09/08/22 4:48 AM) (09/07/22 9:52 PM) Weight 55.7 kg 59.5 kg 59.5 kg (09/07/22 9:52 PM) (09/07/22 8:37 PM) (09/07/22 5:26 PM) Oxygen Saturation [94-100 94 % 94 % 95 % %] (09/08/22 7:27 AM) (09/08/22 4:48 AM) (09/07/22 9:52 PM) Pulse Rate [55-90 bpm] 73 bpm 73 bpm 71 bpm (09/08/22 8:30 AM) (09/08/22 7:27 AM) (09/08/22 4:48 AM) Body Mass Index [18.5-24.99 23.2 kg/m2 kg/m2] (09/07/22 9:52 PM) Blood Pressure 147/87 mm Hg 147/87 mm Hg 147/87 mm Hg [90-138/55-84 mm Hg] *H* *H* *H* (09/08/22 8:31 AM) (09/08/22 8:30 AM) (09/08/22 7:27 AM) Respiratory Rate [16-30 18 br/min 18 br/min 18 br/mi n br/min] (09/08/22 11:01 AM) (09/08/22 11:00 AM) ( 2 8:29 AM) Temperature [96.8-100.4 97.8 DegF 97.3 DegF 98.2 Deg F DegF] (09/08/22 7:27 AM) (09/08/22 4:48 AM) (09/07/22 9:52 PM) Mode of Delivery (Oxygen) Room air Room air Room a ir (09/08/22 7:27 AM) (09/08/22 4:48 AM) (09/07/22 8:37 PM) Blood pressure sites Arm, right Arm, left Arm, right (09/08/22 7:27 AM) (09/08/22 4:48 AM) (09/07/22 9:52 PM) Temperature Route Oral Oral Oral (09/08/22 7:27 AM) (09/08/22 4:48 AM) (09/07/22 9:52 PM) Dry Weight 55.7 kg 59.5 kg 59.5 kg (09/07/22 9:52 PM) (09/07/22 8:37 PM) (09/07/22 5:26 PM) Social History Social History Type Response Smoking Status Never smoker; Tobacco user i n household: No entered on: 07/02/17 Sex Female Note 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 Patient also reports increased SOB that when breathing deep increases the anterior chest pain. Pt reports different pain starting this am over belly button and increases with palpation. Also endorses; Reason: Angina; Clinical Qu estion(s): CHF COMPARISON: 07/14/2022 FINDINGS: LINES AND TUBES: Triple-lead left subclavian pacer/AICD wires are intact. LUNGS AND PLEURA: Clear lungs. Normal pulmonary vascularity. No pleural effusion. No pneumothorax. HEART, MEDIASTINUM AND ISMAEL: Mild prominence of the cardiac silhouette. There is a large hiatal hernia. BONES AND SOFT TISSUES: No acute abnormality. IMPRESSION: No acute abnormality. Large paraesophageal hiatal hernia. Cardiac enlargement without evidence for CHF. WSN: [id number] Ordering Physician: Radha King Dictated By: Jero Diaz MD Dictated Date/Time: 09/07/22 1:00 pm Reviewed By: Jero Diaz MD Signed By: Jero Diaz MD Signed Date/Time: 09/07/22 1:00 pm Transcribed By: CORTEZ Transcribed Date/Time: 09/07/22 12:59 pm Patient Care team information PersonnelName: Malika Mayer MD Address: Address: [address] [place] [address]
--- OUTSIDE RECORDS SUMMARY | 2022-10-06 15:59 | XMS_ITS | Continuity of Care Document ---
:1950 Author Organization [facility] Address [address] [place] [id number]- Care Team Providers Name Role Phone Malika Mayer MD Primary Care Physician En[place] [facility] [place]s): 04/23/20 - 08/21/20 [facility] [address] [place] [id number] [facility] Attending Physician: Raffy Miller MD Admitting Physician: Raffy Miller MD Referring Physician: Malika Mayer MD Allergies, [...] 10/04/19 12:58:56 EST, Route to Pharmacy Electronically, [id number], [facility]/pharmacy #[id number], please bubble pack Start Date: 10/04/19 Stop [...] 07/18/18 13:02:22 EDT, Route to Pharmacy Electronically, [id number], [facility]/pharmacy #[id number], pt is no longer taking torsemide, pleas... [...] Maintenance, 08/29/1810:49:49 EDT, Route to Pharmacy Electronically, [id number], [facility]/pharmacy #[id number] Start Date: 08/29/18 Status: [...] 16:38:00 EST, Aerosol, Route to Pharmacy Electronically, [id number], [facility]/pharmacy #[id number], 152, cm, 12/12/19 11:33:00 [...] diabetes mellitus(Confirmed) Active 1s/p ICD Biventricular upgrade 02/[id number] Plavix Social History Social History Type Response Smoking Status Never smoker; Tobacco user i n household: No entered on: 07/02/17 Sex Female
--- OUTSIDE RECORDS SUMMARY | 2022-10-06 15:59 | XMS_ITS | Continuity of Care Document ---
:1950 Author Organization [facility] Address [address] [place] [id number]- Care Team Providers Name Role Phone Malika Mayer MD Primary Care Physician Encounter [facility] [facility] [id number] Date(s): 11/17/19 - 01/18/20 [facility] [address] [place] [id number] [facility] Attending Physician: Delaney Souza NP Admitting [...] 10/04/19 12:58:56 EST, Route to Pharmacy Electronically, [id number], [facility]/pharmacy #[id number], please bubble pack Start Date: 10/04/19 Stop [...] 07/18/18 13:02:22 EDT, Route to Pharmacy Electronically, [id number], [facility]/pharmacy #[id number], pt is no longer taking torsemide, pleas... [...] Maintenance, 08/29/1810:49:49 EDT, Route to Pharmacy Electronically, [id number], [facility]/pharmacy #[id number] Start Date: 08/29/18 [...] 16:38:00 EST, Aerosol, Route to Pharmacy Electronically, [id number], [facility]/pharmacy #[id number], 152, cm, 12/12/19 [...] diabetes mellitus(Confirmed) Active 1s/p ICD Biventricular upgrade 02/[id number] Plavix Social History Social History Type Response Smoking Status Never smoker; Tobacco user i n household: No entered on: 07/02/17 Sex Female
[2022-10-06 18:15] LABS: Glucose, Whole Blood 182 mg/dL (60-115)
[2022-10-06 18:29] LABS: Appearance Urine Cloudy; Color Urine DK YELLOW; Glucose Urine UA Negative (Negative); Leukocyte Esterase Urine Negative (Negative); Nitrite Urine Positive (Negative); Specific Gravity - Urine >= 1.030 (1.005-1.025); UMIC TRIGGER UACC YES; Urine Blood Negative (Negative); Urine Ketones Trace mg/dL (Negative); Urine Protein 30 (1+) mg/dL (Neg-Trace)
[2022-10-06 18:39] LABS: Bacteria Urine 1+ (None Seen); UACC Culture Trigger YES; WBC Urine 0-5 /HPF (0-5)
[2022-10-06 18:40] LABS: Calcium Oxalate Crystals Urine Present
[2022-10-06] MEDS: cefTRIAXone sodium 1 GM in 0.9 % Sodium Chloride 50 ML IV (19:19)
[2022-10-06] MEDS: 0.9 % Sodium Chloride 1,000 ML 999 ML IVCONT ×2 (19:55→22:18)
[2022-10-06 20:11] VITALS: BP 105/50; PULSE 76; RESP 16; TEMP 36.8; O2SAT 94
--- NOTE | 2022-10-06 21:19 | ED_ITS ---
HPI - General Adult General Chief complaint: General Medical Stated complaint: Not Feeling Well S/P Chemo 10/02/22 Time Seen by Provider: 10/06/22 16:16 Source: patient Mode of arrival: ambulatory Limitations: no limitations Related Data Home Medications Medication Instructions Recorded Confirmed losartan 25 mg tablet 1 tab DAILY 07/15/22 10/06/22 albuterol sulfate 90 mcg/actuation 2 puff inhalation Q4H PRN 10/06/22 10/06/22 aerosol inhaler Respiratory Distress fluticasone furoate 200 1 inh inhalation DAILY 10/06/22 10/06/22 mcg/actuation blister powder for inhalation (Arnuity Ellipta) Previous Rx's Medication Instructions Recorded docusate sodium 100 mg capsule 100 mg PO BID constipation 90 days 04/23/21 #180 caps nebulizers (Aeroneb Go Nebulizer) #1 ea 09/11/21 sennosides 8.6 mg-docusate sodium 2 tab-cap PO BEDTIME #60 tabs 09/11/21 50 mg tablet (Senna-S) blood sugar diagnostic #200 boxes 11/03/21 Glucerna #90 ea 11/25/21 tiotropium bromide 18 mcg capsule 1 cap inhalation DAILY #90 12/08/21 with inhalation device (Spiriva inhalations with HandiHaler) omeprazole 40 mg capsule,delayed 40 mg PO DAILY #90 caps 12/24/21 release metoprolol succinate 200 mg 200 mg PO DAILY #90 tabs 03/02/22 tablet,extended release 24 hr carbamazepine 200 mg tablet 200 mg PO DAILY 90 days #90 tabs 03/19/22 loperamide 2 mg capsule (Imodium 2 mg PO Q4H PRN Diarrhea #60 caps 05/01/22 A-D) ferrous gluconate 324 mg (37.5 mg 324 mg PO DAILY #90 tabs 05/28/22 iron) tablet apixaban 5 mg tablet (Eliquis) 5 mg PO BID #60 tabs 06/08/22 amiodarone 100 mg tablet 100 mg PO DAILY #90 tabs 06/10/22 metformin 500 mg tablet,extended 500 mg PO BID #180 tabs 06/17/22 release 24 hr montelukast 10 mg tablet 10 mg PO BEDTIME #90 tabs 07/14/22 ipratropium 0.5 mg-albuterol 3 mg 3 ml inhalation Q4-6H PRN wheezing 07/29/22 (2.5 mg base)/3 mL nebulization 30 days #180 mL soln alprazolam 0.25 mg tablet 0.25 mg PO BID 30 days #60 tabs 09/01/22 nitroglycerin 0.4 mg sublingual 0.4 mg sublingual Q5M PRN chest 09/09/22 tablet pain #20 tabs atorvastatin 40 mg tablet 40 mg PO DAILY #90 tabs 09/13/22 multivitamin with folic acid 400 1 tab PO BEDTIME #90 tabs 09/14/22 mcg tablet (Daily-Eve (with folic acid)) ondansetron HCl 4 mg tablet 8 mg PO Q8H PRN Nausea #60 tabs 09/15/22 morphine 30 mg tablet,extended 30 mg PO Q12H moderate pain #60 09/18/22 release (MS Contin) tabs oxycodone 5 mg tablet 5 mg PO Q6H PRN Breakthrough Pain, 09/18/22 Moderate #60 tabs blood sugar diagnostic #100 ea 10/01/22 valacyclovir 500 mg tablet 500 mg PO BID-TID #90 tabs 10/01/22 (Valtrex) Allergies Allergy/AdvReac Type Severity Reaction Status Date / Time No Known Allergies Allergy Verified 09/15/22 11:36 [facility] Past Medical History Medical History Anxiety and depression Biventricular ICD (implantable cardioverter-defibrillator) in place Cardiomyopathy Congestive heart failure COPD (chronic obstructive pulmonary disease) Coronary artery disease Current use of anticoagulant therapy CVA (cerebral vascular accident) Diverticulitis Esophageal hernia GERD (gastroesophageal reflux disease) History of renal calculi HTN (hypertension) Hypercholesterolemia Hyponatremia Osteopenia Type 2 diabetes mellitus with hyperglycemia Umbilical hernia Surgical History History of hemicolectomy History of incisional hernia repair History of pacemaker Family History Family History Father Medical history unknown Mother Diabetes Hypertension Social History Social History Household Members: Family Housing: House Are you a primary laboratory animal care veterinarian to a significant other at home: No Do you presently have visiting nurse or other home services: No Alcohol intake: never Patient Tobacco Use Status: Never used Tobacco e-Cigarette/Vaping Use: Never Used Second Hand Smoke Exposure: No Advance Directives: Yes Advance Directives on File: Yes Advance Directives Date on File: 02/17/22 service: No Current occupational status: retired Cognitive needs: No Hearing needs: No Vision needs: Yes Physical Exam ED Vital Signs: Vital Signs - 24 hr 10/06/22 13:27 10/06/22 15:48 10/06/22 15:51 Temperature 99.3 F 98.0 F Pulse Rate 82 75 77 Respiratory Rate 16 16 16 Blood Pressure 135/60 117/61 149/69 H Pulse Oximetry 95 98 97 Oxygen Delivery Method Room Air Room Air Room Air 10/06/22 20:11 Temperature 98.3 F Pulse Rate 76 Respiratory Rate 16 Blood Pressure 105/50 L Pulse Oximetry 94 Oxygen Delivery Method Room Air BMI result Body Mass Index 25.2 Medications Administered Discontinued Medications Generic Name Dose Route Start Last Admin Trade Name Freq PRN Reason Stop Dose Admin Albuterol/Ipratropium 3 ml 10/07/22 08:27 10/07/22 16:11 Albuterol/Iprat 2.5/0.5mg 3 Ml Ampul.Neb INHALE 3 ml Q4H PRN Administration wheezing Alprazolam 0.25 mg 10/07/22 09:00 10/07/22 09:49 Alprazolam 0.25 Mg Tablet PO 0.25 mg BID ERWIN Administration Amiodarone HCl 100 mg 10/07/22 09:00 10/07/22 09:49 Amiodarone Hcl 200 Mg Tablet PO 100 mg DAILY ERWIN Administration Apixaban 5 mg 10/07/22 09:00 10/07/22 09:50 Apixaban 5 Mg Tablet PO 5 mg BID ERWIN Administration Atorvastatin Calcium 40 mg 10/07/22 09:00 10/07/22 09:51 Atorvastatin Calcium 40 Mg Tablet PO 40 mg DAILY ERWIN Administration Carbamazepine 200 mg 10/07/22 09:00 10/07/22 10:06 Carbamazepine 200 Mg Tablet PO 200 mg DAILY ERWIN Administration Docusate Sodium 100 mg 10/07/22 09:00 10/07/22 09:48 Docusate Sodium 100 Mg Capsule PO 100 mg BID ERWIN Administration Ceftriaxone Sodium 1 gm/ 50 mls @ 100 mls/hr 10/06/22 18:52 10/06/22 19:55 Sodium Chloride IV 10/06/22 19:21 Infused ONCE ONE Infusion Sodium Chloride 1,000 mls @ 999 mls/hr 10/06/22 19:45 10/06/22 22:20 Ns IVCONT 10/06/22 20:45 Infused .Q1H1M EWRIN Infusion Sodium Chloride 1,000 mls @ 999 mls/hr 10/06/22 21:30 10/07/22 01:28 Ns IVCONT 10/06/22 22:30 Infused .Q1H1M [facility] Infusion Insulin Human Lispro 0 unit 10/06/22 21:00 10/07/22 14:58 Insulin Lispro 100 Unit/Ml 3 Ml Vial SUBCUT Not Given QIDACHS [facility] Protocol Losartan Potassium 25 mg 10/07/22 09:00 10/07/22 09:48 Losartan Potassium 25 Mg Tablet PO 25 mg DAILY [facility] Administration Protocol Metformin HCl 500 mg 10/07/22 09:00 10/07/22 09:48 Metformin Hcl Er 500 Mg Tab.Er.24h PO 500 mg BID ERWIN Administration Metoprolol Succinate 200 mg 10/07/22 09:00 10/07/22 09:48 Metoprolol Succinate Er 100 Mg Tab.Er.24h PO 200 mg DAILY [facility] Administration Protocol Morphine Sulfate 30 mg 10/07/22 09:00 10/07/22 09:50 Morphine Sulfate Er 30 Mg Tablet.Er PO 30 mg Q12H ERWIN Administration Omeprazole 40 mg 10/07/22 09:00 10/07/22 09:50 Omeprazole 40 Mg Capsule.Dr PO 40 mg DAILY@0630 [facility] Administration Oxycodone HCl 5 mg 10/07/22 08:27 10/07/22 16:25 Oxycodone Hcl Immed Release 5 Mg Tablet PO 5 mg Q6H PRN Administration Breakthrough Pain, Moderate Tiotropium [place] 1 puff 10/07/22 09:00 10/07/22 09:37 Tiotropium [place] 18 Mcg Cap.W.Dev INHALE Not Given RDAILY [facility] Medical Decision Making Lab Data Result diagrams: 10/06/22 13:36 10/06/22 13:36 Labs: Lab Results 10/06/22 10/06/22 10/06/22 Range/Units 13:36 13:36 13:36 WBC 6.1 (4.8-10.8) X10*3/uL RBC 3.66 L (4.20-5.50) X10*6/uL Hgb 10.8 L (12.0-16.0) g/dl Hct 33.5 L (37.0-47.0) % MCV 91.5 (80.0-98.0) fL MCH 29.5 (27.0-33.0) pg MCHC 32.2 (31.0-35.0) g/dl RDW 13.0 (11.0-16.0) % Plt Count 107 L D (160-400) X10*3/uL MPV 12.1 (9.4-12.3) fL Immature Gran % (Auto) 1.8 H (0.0-0.4) % Neut % (Auto) 86.1 H (45-73) % Lymph % (Auto) 8.4 L (20-40) % [place] % (Auto) 2.8 (2-11) % Eos % (Auto) 0.7 (0-4) % Baso % (Auto) 0.2 (0-2) % Lymph # (Auto) 0.5 L (1.2-4.9) X10*3/uL [place] # (Auto) 0.2 (0.1-1.2) X10*3/uL Eos # (Auto) 0.0 (0.0-0.4) X10*3/uL Baso # (Auto) 0.0 (0.0-0.2) X10*3/uL Abs Immat Gran (auto) 0.11 H (0.00-0.03) X10*3/uL Absolute Neuts (auto) 5.2 (2.0-8.3) x10*3/uL Absolute Nucleated RBC 0.000 (0.0-0.012) X10*3/uL Nucleated RBC % (auto) 0.0 (0.0-0.2) /100WBC Sodium 134 L (135-145) mmol/L Potassium 4.2 (3.3-5.1) mmol/L Chloride 98 (96-108) mmol/L Carbon Dioxide 25 (22-29) mmol/L Anion Gap 15 (12-20) BUN 19 H (9-16) mg/dL Creatinine 1.13 (0.5-1.4) mg/dL Estim Creat Clear Calc 36.6 Estimated GFR 47 POC Glucose (60-115) mg/dL Random Glucose 306 H (60-115) mg/dL Calcium 9.2 D (8.4-10.2) mg/dL Total Bilirubin 0.5 (0.0-1.0) mg/dL Direct Bilirubin 0.3 (0.0-0.5) mg/dL AST 17 (5-31) U/L ALT 13 (0-31) U/L Alkaline Phosphatase 61 (39-117) U/L Troponin I High Sens 27.8 H (<3.5-17.0) ng/L Total Protein 7.1 (6.5-8.0) g/dL Albumin 4.1 (3.5-5.0) g/dL Lipase 14 (8-78) U/L Urine Color Urine Appearance Urine pH (5.0-9.0) Ur Specific [place] (1.005-1.025) Urine Protein (Neg-Trace) mg/dL Urine Glucose (UA) (Negative) mg/dL Urine Ketones (Negative) mg/dL Urine Blood (Negative) Urine Nitrite (Negative) Ur Leukocyte Esterase (Negative) Urine RBC (0-2) /HPF Urine WBC (0-5) /HPF Ur Squamous Epith Cells (0-2) /HPF Calcium Oxalate Crystal Urine Bacteria (None Seen) Hyaline Casts (0-2) /LPF Influenza Type A (PCR) (Negative) Influenza Type B (PCR) (Negative) RSV RNA Qual (PCR) (Negative) SARS-CoV-2 RNA (RT-PCR) (Negative) 10/06/22 10/06/22 10/06/22 Range/Units 13:36 16:34 17:53 WBC (4.8-10.8) X10*3/uL RBC (4.20-5.50) X10*6/uL Hgb (12.0-16.0) g/dl Hct (37.0-47.0) % MCV (80.0-98.0) fL MCH (27.0-33.0) pg MCHC (31.0-35.0) g/dl RDW (11.0-16.0) % Plt Count (160-400) X10*3/uL MPV (9.4-12.3) fL Immature Gran % (Auto) (0.0-0.4) % Neut % (Auto) (45-73) % Lymph % (Auto) (20-40) % [place] % (Auto) (2-11) % Eos % (Auto) (0-4) % Baso % (Auto) (0-2) % Lymph # (Auto) (1.2-4.9) X10*3/uL [place] # (Auto) (0.1-1.2) X10*3/uL Eos # (Auto) (0.0-0.4) X10*3/uL Baso # (Auto) (0.0-0.2) X10*3/uL Abs Immat Gran (auto) (0.00-0.03) X10*3/uL Absolute Neuts (auto) (2.0-8.3) x10*3/uL Absolute Nucleated RBC (0.0-0.012) X10*3/uL Nucleated RBC % (auto) (0.0-0.2) /100WBC Sodium (135-145) mmol/L Potassium (3.3-5.1) mmol/L Chloride (96-108) mmol/L Carbon Dioxide (22-29) mmol/L Anion Gap (12-20) BUN (9-16) mg/dL Creatinine (0.5-1.4) mg/dL Estim Creat Clear Calc Estimated GFR POC Glucose 182 H (60-115) mg/dL Random Glucose (60-115) mg/dL Calcium (8.4-10.2) mg/dL Total Bilirubin (0.0-1.0) mg/dL Direct Bilirubin (0.0-0.5) mg/dL AST (5-31) U/L ALT (0-31) U/L Alkaline Phosphatase (39-117) U/L Troponin I High Sens 24.0 H (<3.5-17.0) ng/L Total Protein (6.5-8.0) g/dL Albumin (3.5-5.0) g/dL Lipase (8-78) U/L Urine Color Urine Appearance Urine pH (5.0-9.0) Ur Specific [place] (1.005-1.025) Urine Protein (Neg-Trace) mg/dL Urine Glucose (UA) (Negative) mg/dL Urine Ketones (Negative) mg/dL Urine Blood (Negative) Urine Nitrite (Negative) Ur Leukocyte Esterase (Negative) Urine RBC (0-2) /HPF Urine WBC (0-5) /HPF Ur Squamous Epith Cells (0-2) /HPF Calcium Oxalate Crystal Urine Bacteria (None Seen) Hyaline Casts (0-2) /LPF Influenza Type A (PCR) NEGATIVE (Negative) Influenza Type B (PCR) NEGATIVE (Negative) RSV RNA Qual (PCR) NEGATIVE (Negative) SARS-CoV-2 RNA (RT-PCR) NEGATIVE (Negative) 10/06/22 10/06/22 10/07/22 Range/Units 18:11 21:41 07:12 WBC (4.8-10.8) X10*3/uL RBC (4.20-5.50) X10*6/uL Hgb (12.0-16.0) g/dl Hct (37.0-47.0) % MCV (80.0-98.0) fL MCH (27.0-33.0) pg MCHC (31.0-35.0) g/dl RDW (11.0-16.0) % Plt Count (160-400) X10*3/uL MPV (9.4-12.3) fL Immature Gran % (Auto) (0.0-0.4) % Neut % (Auto) (45-73) % Lymph % (Auto) (20-40) % [place] % (Auto) (2-11) % Eos % (Auto) (0-4) % Baso % (Auto) (0-2) % Lymph # (Auto) (1.2-4.9) X10*3/uL [place] # (Auto) (0.1-1.2) X10*3/uL Eos # (Auto) (0.0-0.4) X10*3/uL Baso # (Auto) (0.0-0.2) X10*3/uL Abs Immat Gran (auto) (0.00-0.03) X10*3/uL Absolute Neuts (auto) (2.0-8.3) x10*3/uL Absolute Nucleated RBC (0.0-0.012) X10*3/uL Nucleated RBC % (auto) (0.0-0.2) /100WBC Sodium (135-145) mmol/L Potassium (3.3-5.1) mmol/L Chloride (96-108) mmol/L Carbon Dioxide (22-29) mmol/L Anion Gap (12-20) BUN (9-16) mg/dL Creatinine (0.5-1.4) mg/dL Estim Creat Clear Calc Estimated GFR POC Glucose 162 H 156 H (60-115) mg/dL Random Glucose (60-115) mg/dL Calcium (8.4-10.2) mg/dL Total Bilirubin (0.0-1.0) mg/dL Direct Bilirubin (0.0-0.5) mg/dL AST (5-31) U/L ALT (0-31) U/L Alkaline Phosphatase (39-117) U/L Troponin I High Sens (<3.5-17.0) ng/L Total Protein (6.5-8.0) g/dL Albumin (3.5-5.0) g/dL Lipase (8-78) U/L Urine Color DK YELLOW Urine Appearance Cloudy Urine pH 5.0 (5.0-9.0) Ur Specific [place] >= 1.030 H (1.005-1.025) Urine Protein 30 (1+) H (Neg-Trace) mg/dL Urine Glucose (UA) Negative (Negative) mg/dL Urine Ketones Trace (Negative) mg/dL Urine Blood Negative (Negative) Urine Nitrite Positive H (Negative) Ur Leukocyte Esterase Negative (Negative) Urine RBC 3-5 H (0-2) /HPF Urine WBC 0-5 (0-5) /HPF Ur Squamous Epith Cells 6-10 (0-2) /HPF Calcium Oxalate Crystal Present Urine Bacteria 1+ (None Seen) Hyaline Casts 11-20 (0-2) /LPF Influenza Type A (PCR) (Negative) Influenza Type B (PCR) (Negative) RSV RNA Qual (PCR) (Negative) SARS-CoV-2 RNA (RT-PCR) (Negative) 10/07/22 Range/Units 14:47 WBC (4.8-10.8) X10*3/uL RBC (4.20-5.50) X10*6/uL Hgb (12.0-16.0) g/dl Hct (37.0-47.0) % MCV (80.0-98.0) fL MCH (27.0-33.0) pg MCHC (31.0-35.0) g/dl RDW (11.0-16.0) % Plt Count (160-400) X10*3/uL MPV (9.4-12.3) fL Immature Gran % (Auto) (0.0-0.4) % Neut % (Auto) (45-73) % Lymph % (Auto) (20-40) % [place] % (Auto) (2-11) % Eos % (Auto) (0-4) % Baso % (Auto) (0-2) % Lymph # (Auto) (1.2-4.9) X10*3/uL [place] # (Auto) (0.1-1.2) X10*3/uL Eos # (Auto) (0.0-0.4) X10*3/uL Baso # (Auto) (0.0-0.2) X10*3/uL Abs Immat Gran (auto) (0.00-0.03) X10*3/uL Absolute Neuts (auto) (2.0-8.3) x10*3/uL Absolute Nucleated RBC (0.0-0.012) X10*3/uL Nucleated RBC % (auto) (0.0-0.2) /100WBC Sodium (135-145) mmol/L Potassium (3.3-5.1) mmol/L Chloride (96-108) mmol/L Carbon Dioxide (22-29) mmol/L Anion Gap (12-20) BUN (9-16) mg/dL Creatinine (0.5-1.4) mg/dL Estim Creat Clear Calc Estimated GFR POC Glucose 175 H (60-115) mg/dL Random Glucose (60-115) mg/dL Calcium (8.4-10.2) mg/dL Total Bilirubin (0.0-1.0) mg/dL Direct Bilirubin (0.0-0.5) mg/dL AST (5-31) U/L ALT (0-31) U/L Alkaline Phosphatase (39-117) U/L Troponin I High Sens (<3.5-17.0) ng/L Total Protein (6.5-8.0) g/dL Albumin (3.5-5.0) g/dL Lipase (8-78) U/L Urine Color Urine Appearance Urine pH (5.0-9.0) Ur Specific [place] (1.005-1.025) Urine Protein (Neg-Trace) mg/dL Urine Glucose (UA) (Negative) mg/dL Urine Ketones (Negative) mg/dL Urine Blood (Negative) Urine Nitrite (Negative) Ur Leukocyte Esterase (Negative) Urine RBC (0-2) /HPF Urine WBC (0-5) /HPF Ur Squamous Epith Cells (0-2) /HPF Calcium Oxalate Crystal Urine Bacteria (None Seen) Hyaline Casts (0-2) /LPF Influenza Type A (PCR) (Negative) Influenza Type B (PCR) (Negative) RSV RNA Qual (PCR) (Negative) SARS-CoV-2 RNA (RT-PCR) (Negative) Discharge Plan Discharge Clinical Impression: Generalized weakness Patient Disposition: Home, Self-Care Instructions: Weakness (ED) Additional Instructions: Follow up with your primary care provider. Return to the emergency department immediately if your symptoms worsen or if you develop any dizziness, shortness of breath, difficulty breathing, chest pain, blurry vision, loss of vision, nausea, vomiting, abdominal pain, fever, chills, back pain, or any other complaints. Prescriptions: No Action docusate sodium 100 mg capsule 100 mg PO BID 90 Days Qty: 180 3RF (DME) Glucerna See Rx Instructions .Route .MEDSUPPLY Qty: 90 11RF Rx Instructions: As directed Spiriva with HandiHaler 18 mcg capsule, w/inhalation device 1 cap inhalation DAILY Qty: 90 3RF omeprazole 40 mg capsule,delayed release(DR/EC) 40 mg PO DAILY Qty: 90 2RF metoprolol succinate 200 mg tablet extended release 24 hr 200 mg PO DAILY Qty: 90 3RF carbamazepine 200 mg tablet 200 mg PO DAILY 90 Days Qty: 90 2RF ferrous gluconate 324 mg (37.5 mg iron) tablet 324 mg PO DAILY Qty: 90 3RF Eliquis 5 mg Tablet 5 mg PO BID Qty: 60 4RF amiodarone 100 mg tablet 100 mg PO DAILY Qty: 90 1RF metformin 500 mg tablet extended release 24 hr 500 mg PO BID Qty: 180 2RF montelukast 10 mg tablet 10 mg PO BEDTIME Qty: 90 3RF alprazolam 0.25 mg tablet 0.25 mg PO BID 30 Days Qty: 60 2RF nitroglycerin 0.4 mg tablet, sublingual 0.4 mg sublingual Q5M PRN (Reason: chest pain) Qty: 20 0RF Rx Instructions: do not exceed 3 doses per episode atorvastatin 40 mg tablet 40 mg PO DAILY Qty: 90 2RF multivitamin with folic acid [Daily-Eve (with folic acid)] 400 mcg tablet 1 tab PO BEDTIME Qty: 90 3RF (DME) blood sugar diagnostic Strip See Rx Instructions .ROUTE .MEDSUPPLY Qty: 100 3RF Rx Instructions: As directed check the blood sugar once a day loperamide [Imodium A-D] 2 mg Capsule 2 mg PO Q4H PRN (Reason: Diarrhea) Qty: 60 3RF Rx Instructions: administer after each loose stool until symptoms controlled; do not exceed 8 mg per 24 hrs morphine [MS Contin] 30 mg Tablet Extended Release 30 mg PO Q12H Qty: 60 0RF oxycodone 5 mg Tablet 5 mg PO Q6H PRN (Reason: Breakthrough Pain, Moderate) Qty: 60 0RF valacyclovir [Valtrex] 500 mg Tablet 500 mg PO BID-TID Qty: 90 0RF losartan 25 mg tablet 1 tab DAILY Arnuity Ellipta 200 mcg/actuation Blister With Device 1 inh INHALATION DAILY albuterol sulfate 90 mcg/actuation HFA aerosol inhaler 2 puff inhalation Q4H PRN (Reason: Respiratory Distress) sennosides-docusate sodium [Senna-S] 8.6-50 mg tablet 2 tab-cap PO BEDTIME Qty: 60 0RF (DME) Aeroneb Go Nebulizer Misc See Rx Instructions .Route Qty: 1 0RF Rx Instructions: As directed (DME) blood sugar diagnostic Strip See Rx Instructions .ROUTE .MEDSUPPLY Qty: 200 3RF Rx Instructions: As directed check the blood sugar twice a day ipratropium-albuterol 0.5 mg-3 mg(2.5 mg base)/3 mL solution for nebulization 3 ml inhalation Q4-6H PRN (Reason: wheezing) 30 Days Qty: 180 3RF ondansetron HCl 4 mg tablet 8 mg PO Q8H PRN (Reason: Nausea) Qty: 60 11RF Interventions: ED Discharge Assessment Last Done: 10/07/22 16:28 Discharge Date/Time: 10/07/22 16:28 Print Language: Polish
--- NOTE | 2022-10-06 21:29 | MHC.CM.ED ---
CM met with patient with medical reception specialist, as pt is Ukrainian speaking only. Pt lives alone. Has daily [facility] FO[employer] SERVER services from [facility]-3 hours/day. Has local family that help her. Pt states she usually is able to do many things and walk okay, but since her chemo on Wednesday, she is too weak to even walk well. Pt tells CM that she will not go to a detention for therapy, maybe home therapy, but she thinks she doesn't feel well from the chemo. Pt has pancreatic CA and has chemo every other Wednesday. Last chemo 10/02/22. Pt is aware that PT will evaluate her in the morning. Pt does not think she can go home tomorrow. CM explained that then she would need therapy, as she is not being admitted to the hospital. Pt will speak to her son's about STR. Pt is not vaccinated against Covid 19. States she had covid. Tells CM that oncology told her she could get the vaccinations, but she doesn't want to. Says she's too old. CM explained that the vaccinations would be could for her, since she is in a weakened condition from the Cancer and chemo. Pt declines at this time. HCP on file. HCP Benedicto Cardoza (son) [phone]/ PCP is Dr. Mayer. Local referrals placed. May be difficult to place for STR due to vaccination status. CM to follow for discharge planning needs. Arina RAMOS aware of above conversation.
[2022-10-06 21:45] LABS: Glucose, Whole Blood 162 mg/dL (60-115)
--- NOTE | 2022-10-06 22:15 | PHA.MEDREC ---
MED REC COMPLETE Pharmacy Consult ? Medication Reconciliation Pharmacy has completed the medication reconciliation.
[2022-10-06] MEDS: Insulin Lispro 100 UNIT/ML 3 ML VIAL SUBCUT (22:19)
--- NOTE | 2022-10-06 22:32 | PC.NURSE ---
patient ambulated to the bathroom with steady gait
--- NOTE | 2022-10-07 01:35 | PC.NURSE ---
patient sleeping, chest rise and fall equal and unlabored. call huynh within reach. able to make needs known, will continue to round...
--- NOTE | 2022-10-07 05:02 | PC.NURSE ---
patient continues to be sleeping. no signs of distress noted. call huynh within reach. bed in lowest, locked position for safety.
[2022-10-07 06:22] VITALS: BP 118/56; PULSE 64; RESP 14; TEMP 36.8; O2SAT 94
[2022-10-07 07:16] LABS: Glucose, Whole Blood 156 mg/dL (60-115)
[2022-10-07 09:41] VITALS: BP 118/56; PULSE 64; O2SAT 94
[2022-10-07] MEDS: metFORMIN HCl ER 500 MG TAB.ER.24H PO (09:48)
[2022-10-07] MEDS: Docusate Sodium 100 MG CAPSULE PO (09:48)
[2022-10-07] MEDS: Metoprolol Succinate ER 100 MG TAB.ER.24H 200 MG PO (09:48)
[2022-10-07] MEDS: Losartan Potassium 25 MG TABLET PO (09:48)
[2022-10-07] MEDS: ALPRAZolam 0.25 MG TABLET PO (09:49)
[2022-10-07] MEDS: Amiodarone HCL 200 MG TABLET 100 MG PO (09:49)
[2022-10-07] MEDS: Omeprazole 40 MG CAPSULE.DR PO (09:50)
[2022-10-07] MEDS: Apixaban 5 MG TABLET PO (09:50)
[2022-10-07] MEDS: Morphine Sulfate ER 30 MG TABLET.ER PO (09:50)
[2022-10-07] MEDS: Atorvastatin Calcium 40 MG TABLET PO (09:51)
[2022-10-07] MEDS: carBAMazepine 200 MG TABLET PO (10:06)
[2022-10-07 10:17] VITALS: PULSE 73; RESP 18; O2SAT 97
[2022-10-07] MEDS: Albuterol/Iprat 2.5/0.5MG 3 ML AMPUL.NEB INHALE ×2 (10:17→16:11)
[2022-10-07 10:27] VITALS: BP 145/65; PULSE 72; RESP 20; TEMP 36.7; O2SAT 97
--- NOTE | 2022-10-07 13:43 | MHC.CM.ED ---
Patient remains in ER. Physical therapy eval completed. Physical therapy feels patient can safely go home. [facility] facilities to see if any detention beds can be offered. [facility] and [facility] are only facilities able to offer a bed at this time. Met with patient and japanese interpreter. Discharge options discussed with patient. Patient does not want to go home or to short term rehab. Patient wants to stay in the hospital because I don't feel well. T/W acknowledged patient has cancer, receives chemo and doesn't feel well. T/W also explained patient would not be able to come into the hospital because she doesn't qualify for a hospital admission. Patient upset and wants CM to return when patient's son is at bedside. Patient's son, Benedicto, arrived to ER. Met with patient and Benedicto. T/W had same conversation with Benedicto that was had with patient. Benedicto stated he spoke with Miky at patient's insurance company and Miky was going to call T/W to discuss hospital admission. Benedicto provided Miky's contact info to T/W. T/W attempted to reach Miky at [facility] via telephone at [phone]. Left message requesting return telephone call. Received telephone call from Cristian at [facility]. Clinical findings discussed with Cristian. Cristian verifies patient does not meet criteria for hospital admission. Cristian will speak with patient's son Benedicto. After discussion with Cristian, Benedicto notified Temi ZULUAGA that he would return to ER when he was out of work at 330pm to transport patient home. Anticipate patient will return home without services. Monica MAGANA aware. Continue to monitor for d/c needs.
[2022-10-07 14:51] LABS: Glucose, Whole Blood 175 mg/dL (60-115)
--- NOTE | 2022-10-07 16:03 | PC.NURSE ---
Patient requesting breathing treatment called respiratory. I asked if she wanted an inhaler patient refused.
[2022-10-07] MEDS: oxyCODONE HCl Immed Release 5 MG TABLET PO (16:25)
== END 2022-10-07 16:28 | disposition home or self-care (01) ==
PROVIDERS: Emergency Medicine; Physician Assistant; Emergency Provider Internal Medicine
DX: R06.02 Shortness of breath (principal); R07.89 Other chest pain; M79.10 Myalgia, unspecified site; R26.81 Unsteadiness on feet; Z20.822 Contact with and (suspected) exposure to COVID-19; Z79.899 Other long term (current) drug therapy
CPT/HCPCS: 0241U; 36415; 71045; 80048; 80076; 81001; 82947; 83690; 84484; 85025; 87086; 93005; 94640; 96361; 96365; 97162; 99285; J0696

== ENCOUNTER 2022-12-09 11:31 | Outpatient (REF) | payer OTHER, SELFPAY ==
[2022-12-09 12:52] LABS: B Type Natriuretic Peptide 77 pg/mL (<100)
== END 2022-12-09 11:32 | disposition home or self-care (01) ==
LOC: HO.LAB 11:31
PROVIDERS: PCP Internal Medicine; Visit Provider Nurse Practitioner Family
DX: I25.10 Atherosclerotic heart disease of native coronary artery without angina pectoris (principal); I42.9 Cardiomyopathy, unspecified
CPT/HCPCS: 36415; 83880

== ENCOUNTER → 2022-12-21 11:09 | Outpatient (BNVA) | payer OTHER, SELFPAY | PROVIDERS: PCP Internal Medicine; Referring Provider Internal Medicine; Visit Provider Internal Medicine Cardiovascular Disease | DX: I42.9 Cardiomyopathy, unspecified (principal); I63.9 Cerebral infarction, unspecified; Z95.810 Presence of automatic (implantable) cardiac defibrillator | CPT/HCPCS: 93005; 99212 ==

== ENCOUNTER 2023-01-27 12:47 | Outpatient (REF) | payer OTHER, SELFPAY ==
--- NOTE | ~2023-01-27 | MM_ITS ---
EXAMINATION: MM DIAGNOSTIC DIGITAL BREAST TOMOSYNTHESIS, BILATERAL US DIAGNOSTIC ULTRASOUND BREAST, LEFT CLINICAL INFORMATION: Due for yearly. Clinical exam notes 2 cm palpable area 2:00 periareolar left breast. Also follow-up probable benign calcifications left breast. Patient under treatment for pancreatic cancer. TC score 3%. COMPARISON: Mammography: 01/22/2021, 05/15/2020, 05/07/2020 (BI-RADS 0), 02/06/2019, 01/20/2018 TECHNIQUE: Digital breast tomosynthesis is performed in both the craniocaudal and mediolateral oblique views along with computer-aided detection (CAD). Synthesized 2D images are generated from the tomosynthesis. Additional views are obtained: Bilateral MLO, magnification left CC x2, magnification left ML. Ultrasound left breast is targeted to the anterior and periareolar region using grayscale imaging and color Doppler without and with harmonics. FINDINGS: The breasts are heterogeneously dense, which may obscure small masses (ACR BI-RADS breast composition Category c). Parenchymal pattern is similar to prior studies and there is no developing density or interval mass or architectural abnormality. There is no mammographic correlate for palpable concern. There is a pacemaker generator overlying left axilla on MLO view and a port overlying upper right axilla on MLO view, respectively. There are scattered bilateral vascular and some punctate and coarse round calcifications. Left breast has some benign coarse calcifications posterior central breast again seen. Punctate calcifications posterior central and posterior upper outer left breast for follow-up are similar to prior diagnostic exams and now considered to be benign. Ultrasound left breast demonstrates no ultrasound correlate for palpable concern. There is no solid mass or architectural abnormality. Incidental mildly complicated 0.5 cm cyst with apocrine metaplasia 12:00 position anterior left breast with some geographic avascular low-level internal echoes and no associated color flow. Results are discussed with the patient at time of visit. MM/MM tomosynthesis diagnostic BI IMPRESSION: -No significant changes from prior exams. -Left breast calcifications for follow-up are now considered to be benign. -Small benign complicated cyst anterior superior left breast, 0.5 cm. ASSESSMENT: BI-RADS 2: Benign RECOMMENDATION: -Routine annual mammography screening. -If there is still clinically palpable concern, further evaluation may be considered with surgical consult. Decision to proceed with biopsy should be based on clinical grounds and degree of clinical concern. This patient's information was entered into a reminder system with a target due date for their next mammogram.
[2023-01-27 13:07] LABS: MANUAL DIFF FLAG NO
[2023-01-27 13:12] LABS: Basophils Percent Auto 0.2 % (0-2); Eosinophils Absolute Auto 0.2 X10*3/uL (0.0-0.4); Eosinophils Percent Auto 3.8 % (0-4); Hematocrit 34.9 % (37.0-47.0); Hemoglobin 11.4 g/dl (12.0-16.0); Imm Gran Abs Auto 0.01 X10*3/uL (0.00-0.03); Imm Gran Pct Auto 0.2 % (0.0-0.4); Lymphocytes Absolute Auto 1.2 X10*3/uL (1.2-4.9); Lymphocytes Percent Auto 21.5 % (20-40); Mean Corpuscular HGB Conc 32.7 g/dl (31.0-35.0); Mean Corpuscular Volume 94.8 fL (80.0-98.0); Mean Platelet Volume 10.5 fL (9.4-12.3); Monocytes Absolute Auto 0.5 X10*3/uL (0.1-1.2); Monocytes Percent Auto 9.3 % (2-11); Neutrophils Absolute Auto 3.8 x10*3/uL (2.0-8.3); Platelet Count 167 X10*3/uL (160-400); Red Blood Count 3.68 X10*6/uL (4.20-5.50); Red Cell Distribution Width 19.3 % (11.0-16.0); White Blood Count 5.8 X10*3/uL (4.8-10.8)
[2023-01-27 13:37] LABS: Alanine Aminotransferase 10 U/L (0-31); Albumin Level 4.1 g/dL (3.5-5.0); Alkaline Phosphatase 61 U/L (39-117); Anion Gap 14 (12-20); Aspartate Amino Transferase 18 U/L (5-31); Bilirubin Total 0.7 mg/dL (0.0-1.0); Blood Urea Nitrogen 14 mg/dL (9-16); Calcium 9.4 mg/dL (8.4-10.2); Carbon Dioxide 28 mmol/L (22-29); Chloride 103 mmol/L (96-108); Estimated Glomerular Filt Rate > 60; Glucose Random 125 mg/dL (60-115); Potassium 4.7 mmol/L (3.3-5.1); Sodium 140 mmol/L (135-145); Total Protein 6.7 g/dL (6.5-8.0)
[2023-01-29 10:19] LABS: Carbohydrate Antigen 19-9 6896 U/mL (<34)
== END 2023-01-27 12:48 | disposition home or self-care (01) ==
LOC: HO.MAMMO 12:47
PROVIDERS: Absent Provider Internal Medicine Medical Oncology; PCP Internal Medicine; Visit Provider Internal Medicine
DX: N63.21 Unspecified lump in the left breast, upper outer quadrant (principal); C25.9 Malignant neoplasm of pancreas, unspecified
CPT/HCPCS: 36415; 76642; 77062; 77066; 80053; 85025; 86301

== ENCOUNTER 2023-02-15 08:43 | Outpatient (REF) | payer OTHER, SELFPAY ==
--- NOTE | ~2023-02-15 | CT_ITS ---
EXAMINATION: CT ABDOMEN AND PELVIS WITH CONTRAST CLINICAL INFORMATION: Follow-up pancreatic cancer COMPARISON: Previous CT of the abdomen and pelvis June 2022 TECHNIQUE: Multidetector volumetric images were obtained from the superior aspect of the liver through the pubic symphysis following administration 85 mL of Omnipaque 350 intravenous contrast. Sagittal and coronal reformatted images were obtained on the technologist's workstation. Oral contrast: Yes This CT examination was performed using dose optimization techniques as appropriate, variously including the following: *Automated exposure control *Adjustment of mA and/or kV according to patient size (this includes techniques or standardized protocols for targeted exams where dose is matched to indication/reason for exam; i.e. extremities or head) *Use of iterative reconstruction technique DLP: 254 mGy-cm FINDINGS: LUNG BASES: Large esophageal hernia or intrathoracic stomach. See chest CT report from the same day. LIVER, GALLBLADDER, AND BILIARY TREE: The liver is slightly enlarged right lobe measuring 20 cm.. Fatty infiltration. No focal liver lesion. No focal hepatic lesion or biliary ductal dilatation is present. The gallbladder is unremarkable with no evidence of radiopaque gallstones, gallbladder wall thickening, or obvious pericholecystic inflammatory changes. PANCREAS: There is a mass in the head, neck and body of the pancreas that is increased in size. This measures 3.6 x 5.4 cm in AP and transverse dimension axial image 22 series 3 compared to 3.1 x 4.5 cm June 2022. This measures 6.3 cm extending inferiorly along the SMV coronal reconstructed image 28 compared to 5.1 cm June 2022. There are atrophic changes of the tail of the pancreas. The main pancreatic duct does not appear dilated. This encases the celiac axis, proximal hepatic artery, splenic artery and proximal SMA. This encases the extrahepatic main portal vein. The splenic vein is occluded. The SMV is patent. SPLEEN: The spleen is prominent measuring 14 cm in AP dimension. No focal lesion. ADRENAL GLANDS: Unremarkable. KIDNEYS AND URETERS: The kidneys are normal in size, shape, and attenuation. No hydronephrosis, hydroureter, or calculi seen. No perinephric stranding. BLADDER: Not optimally distended GASTROINTESTINAL TRACT: Stool throughout the colon suggestive of constipation. Mild diverticulosis. No evidence of diverticulitis. Duodenal diverticulum adjacent to the pancreas. Large esophageal hernia or intrathoracic stomach. ABDOMINAL WALL: Right ventral hernia containing fat and varices. LYMPH NODES: There are enlarged retroperitoneal lymph nodes. Appear increased in size from previous exam. Largest lymph node is a left periaortic retroperitoneal lymph node inferior to the left renal hilum measuring 1 x 1.7 cm axial image 30 series 3 compared to 0.5 x 1.2 cm June 2022. There are smaller lymph nodes adjacent to the head of the pancreas and in the periportal region. These appear increased as well. There is question of a lymph node versus peritoneal nodule inferior to the left lobe of the liver measuring 7 mm axial image 27 series 3 that is new. VASCULAR: There is the period this includes large perigastric varices adjacent to the esophageal hernia and varices in right ventral hernia. PELVIC VISCERA: Left pelvic calcifications question representing exophytic or pedunculated calcified uterine fibroid. Prominent pelvic vessels on the left. OSSEOUS STRUCTURES: Degenerative changes of the spine. CT/CT abdomen pelvis w IV con IMPRESSION: Interval increase in size in the mass in the pancreas and adjacent lymph nodes. There is a significant vascular involvement and the splenic vein is occluded. Varices. Slightly enlarged fatty liver. No focal liver lesion. Large esophageal hernia or intrathoracic stomach. Diverticulosis and constipation. Fleischner guidelines were followed.
--- NOTE | ~2023-02-15 | CT_ITS ---
EXAMINATION: CT CHEST WITH CONTRAST CLINICAL INFORMATION: Pancreatic cancer. Follow-up pulmonary nodules. COMPARISON: Previous chest CT most recent June 2022 TECHNIQUE: Multidetector volumetric CT imaging of the chest was obtained after the administration of 85 mL of Omnipaque 350 intravenous contrast without immediate adverse reactions. Axial MIP volume rendering provided. Sagittal and coronal reformatted images were obtained. This CT examination was performed using dose optimization techniques as appropriate, variously including the following: *Automated exposure control *Adjustment of mA and/or kV according to patient size (this includes techniques or standardized protocols for targeted exams where dose is matched to indication/reason for exam; i.e. extremities or head) *Use of iterative reconstruction technique DLP: 116 mGy-cm FINDINGS: LUNGS: There are innumerable bilateral pulmonary nodules that appear increased in size. Largest pulmonary nodules are in the left lower lobe measure 1.3 x 1.2 cm axial image 318 series 7 and 0.9 x 1.2 cm axial image 3:15 series 7 compared to 7 mm and 7 x 11 mm June 2022. Largest right pulmonary nodule measures 1.3 cm axial image 250 series 7 in the lower lobe compared to 1 cm June 2022 exam and is partially cavitary. MEDIASTINUM: There are prominent bilateral hilar and mediastinal lymph nodes. This may be slightly increased from June 2022 exam. The heart is enlarged. There is a left subclavian dual chamber pacemaker AICD device. There is a right jugular port with tip projecting over the SVC. No pericardial effusion. Moderate coronary artery calcification. PLEURA: There is no pleural effusion. No pleural mass or thickening. AXILLA: No lymphadenopathy. UPPER ABDOMEN: See abdominal and pelvic CT report from the same day. OSSEOUS STRUCTURES: Degenerative changes of the spine. CT/CT chest w IV con IMPRESSION: Interval increase in bilateral pulmonary nodules. Fleischner guidelines were followed.
[2023-02-15] MEDS: Barium Sulfate Oral (Vanilla) 450 ML ORAL.SUSP 900 ML PO (10:04)
[2023-02-15] MEDS: iohexoL 350 MG/ML 100 ML INFUS..BTL 85 ML IV (11:20)
== END 2023-02-15 08:44 | disposition home or self-care (01) ==
LOC: HO.CT 08:43
PROVIDERS: Visit Provider Internal Medicine
DX: C25.9 Malignant neoplasm of pancreas, unspecified (principal)
CPT/HCPCS: 71260; 74177; Q9967

== ENCOUNTER → 2023-03-01 12:57 | Outpatient (REF) | payer OTHER, SELFPAY ==
--- NOTE | 2023-03-01 13:00 | CA_ITS ---
Transthoracic Echocardiogram Patient (Last, First, Middle): Kalani Cardoza M Gender: Female Date of : 1950 Age: 72 Procedure Date: 03/01/2023 Procedure Type: Transthoracic Echocardiogram Location: OP Height: 152.4 cm Weight: 53.07 kg BSA: 1.49 m2 Heart Rate: bpm BP: 122 / 60 mmHg Warp Drawer: Referring MD: Hieu Eddy MD Symptoms: I42.9 - Cardiomyopathy, unspecified Study Quality: Adequate ECG Rhythm: Sinus Conclusions: - 1. Low normal LV ejection fraction with regional wall motion abnormality 2. Normal cardiac valvular Dopplers 3. Normal RV systolic pressure 4. No gross pericardial effusion Findings Left Ventricle Normal left ventricular cavity size. There is normal left ventricular wall thickness. The left ventricular systolic function is low normal. The visually estimated ejection fraction is between 50-55%. Spectral Doppler is indicative of an impaired relaxation filling pattern. E/E prime ratio is between 8 and 15 consistent with indeterminate filling pressures. Wall Motion Rest Echo Findings The basal inferoseptal segment is hypokinetic. The basal inferior segment is akinetic. All other scored wall segments showed normal motion. Right Ventricle Normal right ventricular cavity size and systolic function. Atria Both atria are normal in size. There is no evidence of interatrial shunt. Aortic Valve Normal aortic valve structure and function. There is no aortic valve stenosis. There is no aortic valve regurgitation. Mitral Valve Normal mitral valve structure and function. There is trace mitral valve regurgitation. There is no mitral valve stenosis. Pulmonic Valve The pulmonic valve is likely normal. Tricuspid Valve Normal tricuspid valve structure. There is trace tricuspid valve regurgitation. The right ventricular systolic pressure is normal. The right ventricular systolic pressure is 27 mmHg. Normal right atrial pressure. There is no evidence of pulmonary hypertension. Great Vessels All visible segments of the aorta are normal in size. The pulmonary artery was not well visualized. Venous The inferior vena cava is normal in size and collapses greater than 50% with inspiration. Pericardium/Pleural There is no evidence of pericardial effusion. Prior Study Comparison No significant change compared to prior study dated: 04/01/2022. Measurements 2D Linear Measurements IVSd: 1.09 0.6-0.9/0.6-1.0 cm LVIDd: 3.81 3.9-5.3/4.2-5.9 cm LVIDd Index: 2.56 2.4-3.2/2.2-3.1 cm/m2 LVIDs: 2.92 2.0-3.6 cm LVPWd: 1.15 0.7-1.1 cm Ao Root: 2.90 2.1-3.5 cm LA Diam: 3.50 2.7-3.8/3.0-4.0 cm LAIDs Index: 2.35 1.5-2.3 cm/m2 LV Mass: 172.78 67-162/88-224 g LV Mass Index: 115.96 43-95/49-115 g/m2 LVOT Diam: 1.90 3.0+(-)1.3 cm 2D Systolic Function EF 4C: 52.60 >55% EF 2C: 43.30 >55% Mitral Valve MV VTI: 0.34 MV Pk Naif: 1.10 MV Mn Naif: 0.58 MV Pk Grad: 5.00 MV Mn Grad: 2.00 MV Pk E: 0.61 MV PK A: 0.94 MV Decel Time: 174.00 E/A: 0.60 E'Lateral: 4.46 E'Medial: 3.59 E/E' Med: 17.00 E/E' Lat: 13.70 PHT: 51.00 MVA PHT: 4.31 MVA Continuity: 1.29 Decel Henry: 3.51 Aortic Valve AoV Pk Naif: 1.56 AoV Mn Naif: 0.96 AoV VTI: 0.31 AoV Pk Grad: 10.00 Aov Mn Grad: 5.00 KURT Cont.VTI: 1.39 LVOT LVOT Pk Naif: 0.85 LVOT Mn Naif: 0.50 LVOT VTI: 0.15 LVOT Pk Grad: 3.00 LVOT Mn Grad: 1.00 LVOT Diam: 1.90 LVOT Area: 2.84 Diastolic Function MV Pk E: 0.61 MV Pk A: 0.94 E/A: 0.60 E'Medial: 3.59 E/E' Med: 17.00 E' Laterial: 4.46 E/E' Lat: 13.70 Right Ventricle TAPSE (mm): 18.00 TVS' Naif: 8.00 Tricuspid Valve TR Pk Naif: 2.43 TR Pk Grad: 24.00 RA Press: 3.00 RVSP: 27.00 Great Vessels Aorta Ao Root-2D: 2.90 2.0-3.7 cm Pulmonary Valve PV Pk Naif: 0.75 Peak PV Grad: 2.00 Updated in Other Vendor System with Status of Final Hieu Eddy MD electronically signed on 03/02/2023 1:21:44 PM with status of Final
== END ==
LOC: HO.CARD 12:57
PROVIDERS: PCP Internal Medicine; Visit Provider Internal Medicine Cardiovascular Disease
DX: I42.9 Cardiomyopathy, unspecified (principal)
CPT/HCPCS: 93306

== ENCOUNTER → 2023-05-14 12:57 | Outpatient (BNVA) | payer OTHER, SELFPAY | PROVIDERS: PCP Internal Medicine; Visit Provider Nurse Practitioner Family | DX: M51.37 Other intervertebral disc degeneration, lumbosacral region (principal); M47.816 Spondylosis without myelopathy or radiculopathy, lumbar region; G62.9 Polyneuropathy, unspecified; G89.4 Chronic pain syndrome; C25.9 Malignant neoplasm of pancreas, unspecified; R10.33 Periumbilical pain; R51.9 Headache, unspecified; Z79.891 Long term (current) use of opiate analgesic | CPT/HCPCS: 99202 ==

== ENCOUNTER 2023-06-15 12:20 | Outpatient (AMB) | payer OTHER, SELFPAY ==
--- NOTE | 2023-06-15 12:33 | A.OFFVIS_ITS ---
Intake Vital Signs 06/15/23 12:34 Height 5 ft Weight 119 lb 0.794 oz BMI 23.2 BP 132/80 Blood Pressure Location Lt brachial Position Sitting Pulse 73 Intake Visit Reasons: 6 month f/u after echo [facility] Intake Note: 6 month follow-up with ekg and [facility] check c/o chest in middle of chest x 2 weeks Veterans Service Representative Required: Yes Veterans Service Representative Name: son Mortgage Loan Processor: Mortgage Loan Processor Present Accompanied by: Son Allergies No Known Allergies Allergy (Verified 05/14/23 13:03) Medication List - Last Reconciled 06/15/23 by Hieu Eddy MD albuterol sulfate 90 mcg/actuation 2 puffs inhalation Q4H PRN alprazolam 0.5 mg PO BID amiodarone 100 mg PO DAILY apixaban (Eliquis) 5 mg PO BID atorvastatin 40 mg PO DAILY blood sugar diagnostic As directed check the blood sugar twice a day blood sugar diagnostic As directed check the blood sugar once a day carbamazepine 200 mg PO DAILY 90 days carboxymethylcellulose sodium 0.5% (Lubricating Plus) 2 drps ophthalmic (eye) QID PRN clotrimazole 10 mg mucous membrane TID clotrimazole 1% 1 appl topical BID 4 weeks commode (bedside commode) 3 in 1 commode [commode As directed] diphenhydramine HCl (Benadryl) 25 mg PO BID PRN docusate sodium 100 mg PO BID 90 days dronabinol (Marinol) 2.5 mg PO BID ferrous gluconate 324 mg PO DAILY fluticasone furoate-vilanterol 200-25 mcg/dose (Breo Ellipta) 1 ea inhalation DAILY gabapentin 100 mg PO BEDTIME [Glucerna As directed] ipratropium-albuterol 0.5 mg-3 mg(2.5 mg base)/3 mL 3 mL inhalation Q4-6H PRN 30 days loperamide (Imodium A-D) 2 mg PO Q4H PRN losartan 25 mg PO DAILY metformin ER 500 mg PO BID metoprolol succinate ER 200 mg PO DAILY montelukast 10 mg PO BEDTIME morphine ER (MS Contin) 60 mg PO Q12H morphine ER (MS Contin) 60 mg PO Q8H multivitamin with folic acid 400 mcg (Daily-Eve (with folic acid)) 1 tab PO BEDTIME nebulizers (Aeroneb Go Nebulizer) As directed nitroglycerin 0.4 mg sublingual Q5M PRN omeprazole 40 mg PO DAILY ondansetron HCl 8 mg (2 x 4 mg) PO Q8H PRN oxycodone 5 mg PO Q6H PRN sennosides-docusate sodium 8.6-50 mg (Senna-S) 2 tab-caps (2 x 8.6-50 mg) PO BEDTIME Shower Chair As directed tiotropium bromide (Spiriva with HandiHaler) 1 cap inhalation DAILY [tub chair As directed] walker As directed walker (Ultra-Light Rollator misc) As directed HPI HPI Comments History of Present Illness Details Kalani comes for follow-up. She complains of sharp pain in the left parasternal area that is not exertional nature and last for few seconds. No exertional chest pain. No heart failure symptoms. Currently not taking furosemide for the last few months as per the son. The declined a certified conference interpreter. She denies any orthopnea, PND, leg edema. No prolonged palpitation irregular heartbeat. No bleeding issues or neurologic events. No lightheadedness, syncope, ICD discharge. Patient says overall she does not feel well. She has pancreatic CA and currently not on much chemotherapy as per the son and currently getting palliative/pain care. [facility] Medical History Anxiety and depression Biventricular ICD (implantable cardioverter-defibrillator) in place Cardiomyopathy Congestive heart failure COPD (chronic obstructive pulmonary disease) Coronary artery disease Current use of anticoagulant therapy CVA (cerebral vascular accident) Diverticulitis Esophageal hernia GERD (gastroesophageal reflux disease) History of renal calculi HTN (hypertension) Hypercholesterolemia Hyponatremia Osteopenia Type 2 diabetes mellitus with hyperglycemia Umbilical hernia Surgical History History of hemicolectomy History of incisional hernia repair History of pacemaker Family History Father Medical history unknown Mother Diabetes Hypertension Social History Household Members: Family Housing: House Are you a primary animal care attendant to a significant other at home: No Do you presently have visiting nurse or other home services: No Alcohol intake: never Patient Tobacco Use Status: Never used Tobacco e-Cigarette/Vaping Use: Never Used Second Hand Smoke Exposure: No Advance Directives Date on File: 02/17/22 service: No Current occupational status: retired Cognitive needs: No Hearing needs: No Vision needs: Yes Review of Systems Const Denies chills, Denies fatigue, Denies fever(s), Denies frequent falls, Denies weakness, Denies weight gain and Denies weight loss ENT Denies dizziness Card Denies chest pain, Denies leg edema, Denies lightheadedness, Denies palpitations, Denies dyspnea, Denies dyspnea on exertion, Denies orthopnea and Denies other (loss of consciousness) Resp Denies cough, Denies dyspnea and Denies dyspnea on exertion GI Denies hematochezia and Denies change in stool character Musc Denies abnormal gait, Denies muscle weakness, Denies numbness, Denies radiating pain into limb and Denies tingling Neuro Denies abnormal gait, Denies dizziness, Denies frequent falls, Denies numbness, Denies tingling and Denies weakness Endo Denies fatigue and Denies palpitations Physical Exam Vital Signs: Last Vital Signs Pulse 73 06/15/23 12:34 BP 132/80 06/15/23 12:34 BMI result Body Mass Index 23.2 Const General: cooperative, comfortable, no acute distress, alert and awake Nutritional Appearance: average body habitus Orientation/consciousness: patient oriented x3 Limitations: no limitations Neck Neck: Yes trachea midline, Yes supple and Yes no JVD Resp Effort & Inspection: normal respiratory effort and Actively coughing Auscultation: wheezes scattered wheezes and left lower and diminished lung sounds Cardio Jugular venous distension: no JVD Palpation: normal PMI Rate: regular rate Rhythm: regular rhythm Heart sounds: S1 normal heart sound present and S2 normal heart sound present GI Auscultation: normal bowel sounds Skin General skin exam: no rashes or lesions noted and ecchymosis Neuro General: patient oriented x3 Extrem General: Yes no clubbing, cyanosis or edema Psych Appearance: grossly normal Office Procedures Cardiac Device Check Cardiac Device Check Details: Biventricular [facility] ICD in place. Few episodes of nonsustained VT noted. Atrial and biventricular pacing thresholds excellent. Atrial ventricular sensing is excellent. Pacing and shock lead impedance is stable. No atrial fibrillation noted. Battery life is at 2.1 years. [id number] Cardiac Device Check, multi lead implantable defibrillator Procedure code (CPT) selection complete EKG Details: EKG shows atrially sensed, ventricular paced rhythm 52945-[id number], Complete Assessment & Plan Assessment & Plan (1) Cardiomyopathy: Comment: ICD biventricular upgrade February 2017. LV systolic function normalized after cardiac resynchronization therapy Code(s): I42.9 - Cardiomyopathy, unspecified Qualifiers: Cardiomyopathy type: unspecified Qualified Code(s): I42.9 - Cardiomyopathy, unspecified Plan: Cardiomyopathy currently on appropriate neurohormonal modulation with no evidence of heart failure of diuretic therapy. Signs and symptoms of heart failure were discussed. Continue current neurohormonal modulation. Has done well with biventricular ICD and cardiac resynchronization therapy. Recent echocardiogram shows low normal LVEF of 50-55%. Continue current medications. Overall prognosis guarded due to her advanced malignancy. On amiodarone therapy for nonsustained VT. (2) Biventricular ICD (implantable cardioverter-defibrillator) in place: Code(s): Z95.810 - Presence of automatic (implantable) cardiac defibrillator Plan: Biventricular ICD in place, working well. Reprogrammed for adequate function. Follow remotely. (3) CVA (cerebral vascular accident): Comment: Acute parietal lobe posterior infarct November 2019 nonsustained VT Code(s): I63.9 - Cerebral infarction, unspecified Plan: Prior history of acute CVA on Eliquis therapy with no recurrent neurologic events. There is no obvious findings of atrial fibrillation on device telemetry. Continue Eliquis therapy. Continue risk factor modification. Will follow up in the clinic in 6 months time, sooner p.r.n.. Thank you for allowing me to partake in her care Medications: Discontinued morphine ER Partial Fill upon patient request. 60 mg PO Q8H 90 tabs 0RF oxycodone Partial Fill upon patient request. 5 mg PO Q4H PRN 80 tabs 0RF Breakthrough Pain, Severe dronabinol administer before lunch and evening meal/dinner 2.5 mg PO BID 60 caps 2RF oxycodone Partial Fill upon patient request. 5 mg PO Q4H PRN 80 tabs 0RF Breakthrough Pain, Severe morphine ER Partial Fill upon patient request. 60 mg PO Q8H 90 tabs 0RF oxycodone Partial Fill upon patient request. 5 mg PO Q4H PRN 80 tabs 0RF Breakthrough Pain, Severe morphine ER Partial Fill upon patient request. 60 mg PO Q8H 90 tabs 0RF morphine ER Partial Fill upon patient request. 60 mg PO Q8H 90 tabs 0RF morphine ER Partial Fill upon patient request. 60 mg PO Q8H 90 tabs 0RF oxycodone Partial Fill upon patient request. 5 mg PO Q4H PRN 80 tabs 0RF Breakthrough Pain, Severe morphine ER Partial Fill upon patient request. 60 mg PO Q8H 90 tabs 0RF morphine ER Partial Fill upon patient request. 60 mg PO Q8H 90 tabs 0RF oxycodone Partial Fill upon patient request. 5 mg PO Q4H PRN 80 tabs 0RF Breakthrough Pain, Severe morphine ER Partial Fill upon patient request. 60 mg PO Q8H 90 tabs 0RF morphine ER Partial Fill upon patient request. 60 mg PO Q8H 90 tabs 0RF Coding Level of Care Code Est Pt Level 4 (59983) Diagnoses Cardiomyopathy I42.9 Cardiomyopathy type: unspecified Biventricular ICD (implantable cardioverter-defibrillator) in place Z95.810 CVA (cerebral vascular accident) I63.9 CPT Codes Cardiac Device Check - Cardiac Device 6: [id number]-LN Cardiac Device Check, multi lead implantable defibrillator ([id number]) EKG - CPT: 95418-[id number], Complete ([id number])
[2023-06-15 12:34] VITALS: BP 132/80; PULSE 73; BMI 23.2
== END 2023-06-15 12:59 | disposition home or self-care (01) ==
PROVIDERS: Visit Provider Internal Medicine Cardiovascular Disease
DX: I42.9 Cardiomyopathy, unspecified (principal); Z95.810 Presence of automatic (implantable) cardiac defibrillator; I63.9 Cerebral infarction, unspecified
CPT/HCPCS: 93284; 99214

== ENCOUNTER → 2023-06-15 12:20 | Outpatient (BNVA) | payer OTHER, SELFPAY | PROVIDERS: Visit Provider Internal Medicine Cardiovascular Disease | DX: I42.9 Cardiomyopathy, unspecified (principal); Z86.73 Personal history of transient ischemic attack (TIA), and cerebral infarction without residual deficits; Z79.01 Long term (current) use of anticoagulants; Z45.02 Encounter for adjustment and management of automatic implantable cardiac defibrillator | CPT/HCPCS: 93005; 99212 ==

== ENCOUNTER 2023-06-24 13:55 | Outpatient (AMB) | payer OTHER, SELFPAY ==
--- NOTE | 2023-06-24 14:06 | A.OFFVIS_ITS ---
Intake Vital Signs 06/24/23 14:13 Height 5 ft Weight 119 lb BMI 23.2 BP 150/71 H Blood Pressure Location Lt brachial Position Sitting Pulse 64 Pulse Source Pulse Oximeter Pulse Oximetry (%) 97 Oxygen Delivery Method Room Air Intake Visit Reasons: discuss procedure Intake Note: Pain today 05/01 Rn Surgical Pcu Required: Yes Rn Surgical Pcu Language: Audience Coordinator Name: son Accompanied by: Son Allergies No Known Allergies Allergy (Verified 06/24/23 14:14) HPI HPI Comments History of Present Illness Details Patient presents today for follow up and discuss plan for lumbar medial branch therapeutic injections for low back pain and Celiac plexus block for pain related to pancreatic cancer. She is accompanied by her son and daugther in-law. Denies any recent cough, cold, infection, fever or other significant changes in medical history since last office visit. Patient denies any bladder or bowel in continence or saddle anesthesia. PRIOR: Patient is a pleasant 72 years old Sudanese speaking with a complex medical history of diabetes (A1C=6.8), COPD, CAD, CVA, significant anxiety with panic attacks, headaches, hypertension, lumbar degenerative disc disease, upper abdominal varices, pulmonary nodules, large esophageal hernia and end stage pancreatic cancer, presents today for significant mid to low back pain and upper abdomen pain that radiates into her back. She has completed chemotherapy last year. Denies radiating back pain into legs, numbness or tingling. Patient is accompanied by her son Benedicto who assists in translation per patient's request. Patient was referred to us by Dr. Cifuentes from oncology for a nerve block since high opioid doses are not alleviating her pain. She currently takes MS Contin 60 mg TID, Oxycodone 5 mg Q4H prn, extra strength Tylenol. Patient is on Eliquis and reports has hold it prior to teeth extractions or IR procedures before. Patient reports increasing periodic nausea and headaches. She is interested in undergoing therapeutic lumbar MBBs and abdominal nerve block for symptomatic pain relief. We will also consider behavioral evaluation for potenti al ITDD pain pump for management on cancer pain. Patient's family reports patient has been battling pancreatic cancer for over 2 years. [facility] History Anxiety and depression Biventricular ICD (implantable cardioverter-defibrillator) in place Cardiomyopathy Congestive heart failure COPD (chronic obstructive pulmonary disease) Coronary artery disease Current use of anticoagulant therapy CVA (cerebral vascular accident) Diverticulitis Esophageal hernia GERD (gastroesophageal reflux disease) History of renal calculi HTN (hypertension) Hypercholesterolemia Hyponatremia Osteopenia Type 2 diabetes mellitus with hyperglycemia Umbilical hernia Surgical History History of hemicolectomy History of incisional hernia repair History of pacemaker Family History Father Medical history unknown Mother Diabetes Hypertension Social History Household Members: Family Housing: House Are you a primary career technical education teacher to a significant other at home: No Do you presently have visiting nurse or other home services: No Alcohol intake: never Patient Tobacco Use Status: Never used Tobacco e-Cigarette/Vaping Use: Never Used Second Hand Smoke Exposure: No Advance Directives Date on File: 02/17/22 service: No Current occupational status: retired Cognitive needs: No Hearing needs: No Vision needs: Yes Review of Systems Const All systems reviewed & are unremarkable except as noted in HPI and below Physical Exam Vital Signs: Last Vital Signs Pulse 64 06/24/23 14:13 BP 150/71 H 06/24/23 14:13 Pulse Ox 97 06/24/23 14:13 Oxygen Delivery Method Room Air 06/24/23 14:13 BMI result Body Mass Index 23.2 General: Appears afebrile. Alert and oriented. Mood and affect appropriate. Follows and participates in conversation appropriately. Respiratory effort is unlabored. No cough. Able to transition from sit to stand unassisted. Results Reviewed Results Reviewed: CT/CT chest w IV con 02/15/23 IMPRESSION: Interval increase in bilateral pulmonary nodules. CT ABDOMEN AND PELVIS WITH CONTRAST 02/15/23 CLINICAL INFORMATION: Follow-up pancreatic cancer COMPARISON: Previous CT of the abdomen and pelvis June 2022 FINDINGS: LUNG BASES: Large esophageal hernia or intrathoracic stomach. See chest CT report from the same day. LIVER, GALLBLADDER, AND BILIARY TREE: The liver is slightly enlarged right lobe measuring 20 cm.. Fatty infiltration. No focal liver lesion. No focal hepatic lesion or biliary ductal dilatation is present. The gallbladder is unremarkable with no evidence of radiopaque gallstones, gallbladder wall thickening, or obvious pericholecystic inflammatory changes. PANCREAS: There is a mass in the head, neck and body of the pancreas that is increased in size. This measures 3.6 x 5.4 cm in AP and transverse dimension axial image 22 series 3 compared to 3.1 x 4.5 cm June 2022. This measures 6.3 cm extending inferiorly along the SMV coronal reconstructed image 28 compared to 5.1 cm June 2022. There are atrophic changes of the tail of the pancreas. The main pancreatic duct does not appear dilated. This encases the celiac axis, proximal hepatic artery, splenic artery and proximal SMA. This encases the extrahepatic main portal vein. The splenic vein is occluded. The SMV is patent. SPLEEN: The spleen is prominent measuring 14 cm in AP dimension. No focal lesion. ADRENAL GLANDS: Unremarkable. KIDNEYS AND URETERS: The kidneys are normal in size, shape, and attenuation. No hydronephrosis, hydroureter, or calculi seen. No perinephric stranding. BLADDER: Not optimally distended GASTROINTESTINAL TRACT: Stool throughout the colon suggestive of constipation. Mild diverticulosis. No evidence of diverticulitis. Duodenal diverticulum adjacent to the pancreas. Large esophageal hernia or intrathoracic stomach. ABDOMINAL WALL: Right ventral hernia containing fat and varices. LYMPH NODES: There are enlarged retroperitoneal lymph nodes. Appear increased in size from previous exam. Largest lymph node is a left periaortic retroperitoneal lymph node inferior to the left renal hilum measuring 1 x 1.7 cm axial image 30 series 3 compared to 0.5 x 1.2 cm June 2022. There are smaller lymph nodes adjacent to the head of the pancreas and in the periportal region. These appear increased as well. There is question of a lymph node versus peritoneal nodule inferior to the left lobe of the liver measuring 7 mm axial image 27 series 3 that is new. VASCULAR: There is the period this includes large perigastric varices adjacent to the esophageal hernia and varices in right ventral hernia. PELVIC VISCERA: Left pelvic calcifications question representing exophytic or pedunculated calcified uterine fibroid. Prominent pelvic vessels on the left. OSSEOUS STRUCTURES: Degenerative changes of the spine. CT/CT abdomen pelvis w IV con IMPRESSION: Interval increase in size in the mass in the pancreas and adjacent lymph nodes. There is a significant vascular involvement and the splenic vein is occluded. Varices. Slightly enlarged fatty liver. No focal liver lesion. Large esophageal hernia or intrathoracic stomach. Diverticulosis and constipation. Assessment & Plan Assessment & Plan (1) Peripheral neuropathy: Code(s): G62.9 - Polyneuropathy, unspecified (2) Headache: Code(s): R51.9 - Headache, unspecified (3) Pancreatic carcinoma: Code(s): C25.9 - Malignant neoplasm of pancreas, unspecified (4) Chronic pain syndrome: Code(s): G89.4 - Chronic pain syndrome (5) Abdominal pain: Code(s): R10.9 - Unspecified abdominal pain Qualifiers: Abdominal location: periumbilical Qualified Code(s): R10.33 - Periumbilical pain Plan 1. Both procedures, lumbar MBB therapeutic and CPB were discussed and reviewed with family and patient in greater detail. Proceed with Therapeutic L3-L4-L5 MBBs with sedation and fluoroscopy for axial low back pain as planned. 2. Subsequently, schedule Celiac plexus block with local and fluoroscopy guidance for intractable upper abdominal pain related to end stage pancreatic ca ncer. If no relief, will consider Neurolysis under sedation. CT scan abdomen and pelvis was reviewed and interventional treatment plan discussed with Dr. Gutierrez at previous visit. 3. Continue Morphin ER and Oxycodone per Oncology services with Dr. Cifuentes. All questions and concerns have been answered and patient and her son agreed with the plan. Follow up after injections and sooner if needed. Anticoagulation: Patient on anticoagulation (Eliquis) and instructions given on when to pause with prescribing physician permission. Justification for interventional therapy: ? Patient with average pain > 6/10 ? Patient has exhausted conservative therapy, high doses of opioids, Tylenol, chemotherapy The risks, consequences, alternatives, and benefits of various treatment options were discussed with the patient in great detail, including conservative management, injections and procedures. Patient and family are aware of hyperglycemic effects of steroids. Most recent A1C was 6.8 on 04/06/23. Medications: Discontinued morphine ER Partial Fill upon patient request. 60 mg PO Q8H 90 tabs 0RF oxycodone Partial Fill upon patient request. 5 mg PO Q4H PRN 80 tabs 0RF Breakthrough Pain, Severe dronabinol administer before lunch and evening meal/dinner 2.5 mg PO BID 60 caps 2RF oxycodone Partial Fill upon patient request. 5 mg PO Q4H PRN 80 tabs 0RF Breakthrough Pain, Severe morphine ER Partial Fill upon patient request. 60 mg PO Q8H 90 tabs 0RF oxycodone Partial Fill upon patient request. 5 mg PO Q4H PRN 80 tabs 0RF Breakthrough Pain, Severe morphine ER Partial Fill upon patient request. 60 mg PO Q8H 90 tabs 0RF morphine ER Partial Fill upon patient request. 60 mg PO Q8H 90 tabs 0RF morphine ER Partial Fill upon patient request. 60 mg PO Q8H 90 tabs 0RF morphine ER Partial Fill upon patient request. 60 mg PO Q8H 90 tabs 0RF oxycodone Partial Fill upon patient request. 5 mg PO Q4H PRN 80 tabs 0RF Breakthrough Pain, Severe morphine ER Partial Fill upon patient request. 60 mg PO Q8H 90 tabs 0RF morphine ER Partial Fill upon patient request. 60 mg PO Q8H 90 tabs 0RF oxycodone Partial Fill upon patient request. 5 mg PO Q4H PRN 80 tabs 0RF Breakthrough Pain, Severe morphine ER Partial Fill upon patient request. 60 mg PO Q8H 90 tabs 0RF morphine ER Partial Fill upon patient request. 60 mg PO Q8H 90 tabs 0RF Coding Level of Care Code Est Pt Level 3 (46774) Diagnoses Peripheral neuropathy G62.9 Headache R51.9 Pancreatic carcinoma C25.9 Chronic pain syndrome G89.4 Abdominal pain R10.33 Abdominal location: periumbilical
[2023-06-24 14:13] VITALS: BP 150/71; PULSE 64; O2SAT 97; BMI 23.2
== END 2023-06-24 14:30 | disposition home or self-care (01) ==
PROVIDERS: PCP Internal Medicine; Visit Provider Nurse Practitioner Family
DX: G62.9 Polyneuropathy, unspecified (principal); R51.9 Headache, unspecified; C25.9 Malignant neoplasm of pancreas, unspecified; G89.4 Chronic pain syndrome; R10.33 Periumbilical pain
CPT/HCPCS: 99213

== ENCOUNTER → 2023-06-24 13:55 | Outpatient (BNVA) | payer OTHER, SELFPAY | PROVIDERS: PCP Internal Medicine; Visit Provider Nurse Practitioner Family | DX: G62.9 Polyneuropathy, unspecified (principal); G89.4 Chronic pain syndrome; R51.9 Headache, unspecified; C25.9 Malignant neoplasm of pancreas, unspecified; R10.33 Periumbilical pain | CPT/HCPCS: 99212 ==

== ENCOUNTER 2023-07-15 13:59 | Outpatient (AMB) | payer OTHER, SELFPAY ==
--- NOTE | 2023-07-15 14:09 | MHC.PC.OV ---
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: No Accompanied by: Self / Same As Patient Allergies No Known Allergies Allergy (Verified 07/15/23 14:23) Medication List - Last Reconciled 07/15/23 by SHANAE George albuterol sulfate 90 mcg/actuation 2 puffs inhalation Q4H PRN alprazolam 0.5 mg PO BID amiodarone 100 mg PO DAILY apixaban (Eliquis) 5 mg PO BID atorvastatin 40 mg PO DAILY blood sugar diagnostic As directed check the blood sugar twice a day blood sugar diagnostic As directed check the blood sugar once a day carbamazepine 200 mg PO DAILY 90 days carboxymethylcellulose sodium 0.5% (Lubricating Plus) 2 drps ophthalmic (eye) QID PRN clotrimazole 10 mg mucous membrane TID clotrimazole 1% 1 appl topical BID 4 weeks commode (bedside commode) 3 in 1 commode [commode As directed] diphenhydramine HCl (Benadryl) 25 mg PO BID PRN docusate sodium 100 mg PO BID 90 days dronabinol (Marinol) 2.5 mg PO BID ferrous gluconate 324 mg PO DAILY fluticasone furoate-vilanterol 200-25 mcg/dose (Breo Ellipta) 1 ea inhalation DAILY food supplemt, lactose-reduced (Ensure oral liquid) ea PO gabapentin 100 mg PO BEDTIME [Glucerna As directed] ipratropium-albuterol 0.5 mg-3 mg(2.5 mg base)/3 mL 3 mL inhalation Q4-6H PRN 30 days loperamide (Imodium A-D) 2 mg PO Q4H PRN losartan 25 mg PO DAILY metformin ER 500 mg PO BID metoprolol succinate ER 200 mg PO DAILY montelukast 10 mg PO BEDTIME morphine ER (MS Contin) 60 mg PO Q12H morphine ER (MS Contin) 60 mg PO Q8H multivitamin with folic acid 400 mcg (Daily-Eve (with folic acid)) 1 tab PO BEDTIME nebulizers (Aeroneb Go Nebulizer) As directed nitroglycerin 0.4 mg sublingual Q5M PRN omeprazole 40 mg PO DAILY ondansetron HCl 8 mg (2 x 4 mg) PO Q8H PRN oxycodone 5 mg PO Q6H PRN oxycodone 5 mg PO Q6H PRN oxycodone 5 mg PO Q8H PRN sennosides-docusate sodium 8.6-50 mg (Senna-S) 2 tab-caps (2 x 8.6-50 mg) PO BEDTIME Shower Chair As directed tiotropium bromide (Spiriva with HandiHaler) 1 cap inhalation DAILY [tub chair As directed] walker As directed walker (Ultra-Light Rollator misc) As directed Tobacco use date assessed: 04/06/23 Fall risk assessment: No Falls in past year Last assessed Fall Risk: 07/15/23 Dental Screening Dental Screen Date: 07/15/23 Did you have a dental visit in the last 12 months?: Yes Did you have a dental problem in the last 6 months where you did not have access to dental care?: No Was dental information given to patient?: Patient has dentist HPI abdominal pain HPI Details Patient is a 72-year-old female who presents today for an office visit due to difficulty swallowing for the past [address] Mayer. Medical history significant for GERD, hypercholesterolemia, hypertension, pancreatic carcinoma-followed by Dr. Cifuentes, ICD in place, history of CVA, diabetes type 2, COPD, CAD, chronic pain syndrome-followed by [facility]. Patient also reports nausea for the past 1.5 weeks. Reports intermittent dizziness, anxiety, and intermittent shortness of breath. The biggest concern is difficulty swallowing foods, reports that she feels like food gets stuck in the mid of her chest and then she wants to vomit, she vomits and feels slightly better. Denies chest pain. Patient reports that she is compliant with omeprazole. Patient is a [place]-speaking and her son was helping with interpretation. [facility] Medical History Anxiety and depression Biventricular ICD (implantable cardioverter-defibrillator) in place Cardiomyopathy Congestive heart failure COPD (chronic obstructive pulmonary disease) Coronary artery disease Current use of anticoagulant therapy CVA (cerebral vascular accident) Diverticulitis Esophageal hernia GERD (gastroesophageal reflux disease) History of renal calculi HTN (hypertension) Hypercholesterolemia Hyponatremia Osteopenia Type 2 diabetes mellitus with hyperglycemia Umbilical hernia Surgical History History of hemicolectomy History of incisional hernia repair History of pacemaker Family History Father Medical history unknown Mother Diabetes Hypertension Social History Household Members: Family Housing: House Are you a primary career consultant to a significant other at home: No Do you presently have visiting nurse or other home services: No Alcohol intake: never Patient Tobacco Use Status: Never used Tobacco e-Cigarette/Vaping Use: Never Used Second Hand Smoke Exposure: No Advance Directives Date on File: 02/17/22 service: No Current occupational status: retired Cognitive needs: No Hearing needs: No Vision needs: Yes Questionnaire Thrive Questionnaire Date Thrive assessed: 12/09/22 EDWARD-7 AMB Questionnaire EDWARD-7 Date EDWARD - 7 assessed: 12/09/22 Source: Developed by Drs. Davian Carr, Sheridan Mcqueen, Kervin Good and colleagues, with an educational eusebio from [employer]. Review of Systems Const Denies body aches, Denies chills, Denies fever(s) and Denies headache(s) Eyes Denies change in vision ENT Reports dizziness (Intermittent), Denies otalgia, Denies headache(s), Denies nasal discharge, Denies sinus pain and Denies sore throat Card Denies chest pain, Denies edema, Denies lightheadedness and Reports dyspnea (Intermittent) Resp Denies cough, Reports dyspnea (Intermittent) and Denies wheezing GI Reports as per HPI, Reports abdominal pain (Intermittent), Denies constipation, Denies diarrhea, Reports nausea and Reports vomiting Denies dysuria Musc Denies myalgias Skin/Breast Denies rash Neuro Reports dizziness (Intermittent) and Denies headache(s) Aller/Immun Denies wheezing Physical exam (Primary Care) Vital Signs: Last Vital Signs Pulse 72 07/15/23 14:10 BP 120/70 07/15/23 14:10 Pulse Ox 100 07/15/23 14:10 Oxygen Delivery Method Room Air 07/15/23 14:10 BMI result Body Mass Index 22.7 Tobacco/Smoking Status: Tobacco use Status Tobacco use date assessed 04/06/23 07/15/23 14:10 Patient Tobacco Use Status Never used Tobacco 07/15/23 14:10 e-Cigarette/Vaping Use Never Used 07/15/23 14:10 Thrive Assessment: Date of Thrive Assessment Date Thrive assessed 12/09/22 07/15/23 14:10 Const General: cooperative and no acute distress Orientation/consciousness: patient oriented x3 HENMT Head: Yes normocephalic and Yes atraumatic Mouth: oropharynx normal and moist mucous membranes Throat: Yes posterior oropharynx normal Eyes General: appearance normal, both eyes and all related structures Neck Neck: Yes normal visual inspection, Yes full ROM and Yes no lymphadenopathy Thyroid: Thyroid normal Resp Effort & Inspection: normal respiratory effort and able to speak in complete sentences Auscultation: clear to auscultation bilaterally, no crackles, no rales, no rhonchi and no wheezes Cardio Rate: regular rate Rhythm: regular rhythm Heart sounds: S1 normal heart sound present and S2 normal heart sound present GI Palpation (GI): Soft to palpation, not firm, Tenderness to palpation present (GI) in the epigastrum; with no rebound tenderness, no guarding, not rigid and no hepatosplenomegaly Auscultation: normal bowel sounds Skin General skin exam: no rashes or lesions noted Neuro General: patient oriented x3 Extrem General: Yes full ROM Assessment and Plan Assessment & Plan (1) Difficulty swallowing: Code(s): R13.10 - Dysphagia, unspecified Plan: Will obtain upper GI study Signs and symptoms reviewed when to notify provider or go to the emergency department Patient agreed with the plan (2) GERD (gastroesophageal reflux disease): Code(s): K21.9 - Gastro-esophageal reflux disease without esophagitis Qualifiers: Esophagitis presence: without esophagitis Qualified Code(s): K21.9 - Gastro-esophageal reflux disease without esophagitis Plan: Continue omeprazole 40 mg daily Avoid GERD trigger foods Do not lay down 2-3 hours after evening meal Orders: Orders [place] upper GI w Ba Swallow 07/15/23 R13.10 - Dysphagia, unspecified Medications: Refilled carboxymethylcellulose sodium 0.5% (Lubricating Plus) 2 drps ophthalmic (eye) QID PRN 70 ea 0RF dry eye(s) Discontinued morphine ER Partial Fill upon patient request. 60 mg PO Q8H 90 tabs 0RF oxycodone Partial Fill upon patient request. 5 mg PO Q4H PRN 80 tabs 0RF Breakthrough Pain, Severe dronabinol administer before lunch and evening meal/dinner 2.5 mg PO BID 60 caps 2RF oxycodone Partial Fill upon patient request. 5 mg PO Q4H PRN 80 tabs 0RF Breakthrough Pain, Severe morphine ER Partial Fill upon patient request. 60 mg PO Q8H 90 tabs 0RF oxycodone Partial Fill upon patient request. 5 mg PO Q4H PRN 80 tabs 0RF Breakthrough Pain, Severe morphine ER Partial Fill upon patient request. 60 mg PO Q8H 90 tabs 0RF morphine ER Partial Fill upon patient request. 60 mg PO Q8H 90 tabs 0RF morphine ER Partial Fill upon patient request. 60 mg PO Q8H 90 tabs 0RF oxycodone Partial Fill upon patient request. 5 mg PO Q8H PRN 60 tabs 0RF Breakthrough Pain, Moderate morphine ER Partial Fill upon patient request. 60 mg PO Q8H 90 tabs 0RF oxycodone Partial Fill upon patient request. 5 mg PO Q4H PRN 80 tabs 0RF Breakthrough Pain, Severe morphine ER Partial Fill upon patient request. 60 mg PO Q8H 90 tabs 0RF morphine ER Partial Fill upon patient request. 60 mg PO Q8H 90 tabs 0RF oxycodone Partial Fill upon patient request. 5 mg PO Q4H PRN 80 tabs 0RF Breakthrough Pain, Severe morphine ER Partial Fill upon patient request. 60 mg PO Q8H 90 tabs 0RF morphine ER Partial Fill upon patient request. 60 mg PO Q8H 90 tabs 0RF Coding Level of Care Code Est Pt Level 3 (30108) Diagnoses Difficulty swallowing R13.10 GERD (gastroesophageal reflux disease) K21.9 Esophagitis presence: without esophagitis
[2023-07-15 14:10] VITALS: BP 120/70; PULSE 72; O2SAT 100; BMI 22.7
== END 2023-07-15 14:49 | disposition home or self-care (01) ==
PROVIDERS: PCP Internal Medicine; Visit Provider Nurse Practitioner Family
DX: R13.10 Dysphagia, unspecified (principal); K21.9 Gastro-esophageal reflux disease without esophagitis
CPT/HCPCS: 99213

== ENCOUNTER → 2023-07-15 23:59 | Outpatient (BNV) | payer OTHER, SELFPAY ==
--- NOTE | 2023-07-19 10:31 | A.OFFVIS_ITS ---
Intake Intake Visit Reasons: Remote ICD Check- [facility] Allergies No Known Allergies Allergy (Verified 07/15/23 14:23) PFSH Medical History Anxiety and depression Biventricular ICD (implantable cardioverter-defibrillator) in place Cardiomyopathy Congestive heart failure COPD (chronic obstructive pulmonary disease) Coronary artery disease Current use of anticoagulant therapy CVA (cerebral vascular accident) Diverticulitis Esophageal hernia GERD (gastroesophageal reflux disease) History of renal calculi HTN (hypertension) Hypercholesterolemia Hyponatremia Osteopenia Type 2 diabetes mellitus with hyperglycemia Umbilical hernia Surgical History History of hemicolectomy History of incisional hernia repair History of pacemaker Family History Father Medical history unknown Mother Diabetes Hypertension Social History Household Members: Family Housing: House Are you a primary healthcare interpreter to a significant other at home: No Do you presently have visiting nurse or other home services: No Alcohol intake: never Patient Tobacco Use Status: Never used Tobacco e-Cigarette/Vaping Use: Never Used Second Hand Smoke Exposure: No Advance Directives Date on File: 02/17/22 service: No Current occupational status: retired Cognitive needs: No Hearing needs: No Vision needs: Yes Office Procedures Cardiac Device Check Cardiac Device Check Details: Remote ICD report generated 07/15/2023. ICD function is adequate. Bi V pacing greater than 99% [id number] Cardiac Interrogation, implant defibrillator w/interim Procedure code (CPT) selection complete Assessment & Plan Assessment & Plan Medications: Discontinued morphine ER Partial Fill upon patient request. 60 mg PO Q8H 90 tabs 0RF oxycodone Partial Fill upon patient request. 5 mg PO Q4H PRN 80 tabs 0RF Breakthrough Pain, Severe dronabinol administer before lunch and evening meal/dinner 2.5 mg PO BID 60 caps 2RF oxycodone Partial Fill upon patient request. 5 mg PO Q4H PRN 80 tabs 0RF Breakthrough Pain, Severe morphine ER Partial Fill upon patient request. 60 mg PO Q8H 90 tabs 0RF oxycodone Partial Fill upon patient request. 5 mg PO Q4H PRN 80 tabs 0RF Breakthrough Pain, Severe morphine ER Partial Fill upon patient request. 60 mg PO Q8H 90 tabs 0RF morphine ER Partial Fill upon patient request. 60 mg PO Q8H 90 tabs 0RF morphine ER Partial Fill upon patient request. 60 mg PO Q8H 90 tabs 0RF oxycodone Partial Fill upon patient request. 5 mg PO Q8H PRN 60 tabs 0RF Breakthrough Pain, Moderate morphine ER Partial Fill upon patient request. 60 mg PO Q8H 90 tabs 0RF oxycodone Partial Fill upon patient request. 5 mg PO Q4H PRN 80 tabs 0RF Breakthrough Pain, Severe morphine ER Partial Fill upon patient request. 60 mg PO Q8H 90 tabs 0RF morphine ER Partial Fill upon patient request. 60 mg PO Q8H 90 tabs 0RF oxycodone Partial Fill upon patient request. 5 mg PO Q4H PRN 80 tabs 0RF Breakthrough Pain, Severe morphine ER Partial Fill upon patient request. 60 mg PO Q8H 90 tabs 0RF morphine ER Partial Fill upon patient request. 60 mg PO Q8H 90 tabs 0RF Coding Level of Care Code Procedure Only Diagnoses CPT Codes Cardiac Device Check - Cardiac Device 13: [id number] Cardiac Interrogation, implant defibrillator w/interim ([id number])
== END ==
PROVIDERS: PCP Internal Medicine; Visit Provider Internal Medicine Cardiovascular Disease
DX: I42.9 Cardiomyopathy, unspecified (principal); Z95.810 Presence of automatic (implantable) cardiac defibrillator
CPT/HCPCS: 93295

== ENCOUNTER 2023-07-23 14:13 | Outpatient (AMB) | payer OTHER, SELFPAY ==
[2023-07-23 14:17] VITALS: BP 122/70; PULSE 64; O2SAT 96; BMI 22.8
--- NOTE | 2023-07-23 14:17 | MHC.PC.OV ---
Vital Signs 07/23/23 14:17 Height 5 ft Weight 117 lb BMI 22.8 BP 122/70 Blood Pressure Location Lt brachial Position Sitting Pulse 64 Pulse Source Pulse Oximeter Pulse Oximetry (%) 96 Oxygen Delivery Method Room Air Intake Visit Reasons: PAcreatic cancer, DM , Intake Note: Rash behind ears, eyes are dry and in the morning she wakes them with them difficulty to open and has alot of stuff she has to scrap off her eyes in the morning. Allergies No Known Allergies Allergy (Verified 07/23/23 14:17) Medication List - Last Reconciled 07/23/23 by Malika Mayer MD albuterol sulfate 90 mcg/actuation 2 puffs inhalation Q4H PRN alprazolam 0.5 mg PO BID amiodarone 100 mg PO DAILY amoxicillin-pot clavulanate 500-125 mg (Augmentin) 1 tab PO BID apixaban (Eliquis) 5 mg PO BID atorvastatin 40 mg PO DAILY blood sugar diagnostic As directed check the blood sugar twice a day blood sugar diagnostic As directed check the blood sugar once a day carbamazepine 200 mg PO DAILY 90 days carboxymethylcellulose sodium 0.5% (Lubricating Plus) 2 drps ophthalmic (eye) QID PRN clotrimazole 10 mg mucous membrane TID clotrimazole 1% 1 appl topical BID 4 weeks commode (bedside commode) 3 in 1 commode [commode As directed] diphenhydramine HCl (Benadryl) 25 mg PO BID PRN docusate sodium 100 mg PO BID 90 days dronabinol (Marinol) 2.5 mg PO BID ferrous gluconate 324 mg PO DAILY fluticasone furoate-vilanterol 200-25 mcg/dose (Breo Ellipta) 1 ea inhalation DAILY food supplemt, lactose-reduced (Ensure oral liquid) ea PO gabapentin 100 mg PO BEDTIME [Glucerna As directed] ipratropium-albuterol 0.5 mg-3 mg(2.5 mg base)/3 mL 3 mL inhalation Q4-6H PRN 30 days loperamide (Imodium A-D) 2 mg PO Q4H PRN losartan 25 mg PO DAILY metformin ER 500 mg PO BID metoprolol succinate ER 200 mg PO DAILY montelukast 10 mg PO BEDTIME morphine ER (MS Contin) 60 mg PO Q12H morphine ER (MS Contin) 60 mg PO Q8H multivitamin with folic acid 400 mcg (Daily-Eve (with folic acid)) 1 tab PO BEDTIME nebulizers (Aeroneb Go Nebulizer) As directed nitroglycerin 0.4 mg sublingual Q5M PRN olopatadine 0.2% 1 drp ophthalmic (eye) DAILY PRN omeprazole 40 mg PO DAILY ondansetron HCl 8 mg (2 x 4 mg) PO Q8H PRN oxycodone 5 mg PO Q6H PRN oxycodone 5 mg PO Q6H PRN oxycodone 5 mg PO Q8H PRN sennosides-docusate sodium 8.6-50 mg (Senna-S) 2 tab-caps (2 x 8.6-50 mg) PO BEDTIME Shower Chair As directed tiotropium bromide (Spiriva with HandiHaler) 1 cap inhalation DAILY [tub chair As directed] walker As directed walker (Ultra-Light Rollator misc) As directed Tobacco use date assessed: 04/06/23 Fall risk assessment: No Falls in past year Last assessed Fall Risk: 07/23/23 Dental Screening Dental Screen Date: 07/23/23 Did you have a dental visit in the last 12 months?: No Did you have a dental problem in the last 6 months where you did not have access to dental care?: No Was dental information given to patient?: No HPI PAcreatic cancer, DM , HPI Details 72-year-old female with multiple medical problems she has coronary artery disease with cardiomyopathy diabetes mellitus controlled COPD history of CVA pancreatic cancer hypertension hypercholesterolemia GERD coming in for follow-up last seen in March 2023. Patient is here for follow-up. Review of the was seen by the nurse practitioner last week for abdominal pain and dysphagia swallow was requested and is pending. Review of the notes from Hematology-Oncology patient has pancreatic mass is increasing in size with the chemotherapy not helping and just having side effects this was taken off making the patient feel better hospice was discussed but with the would like to hold off. complains of having multiple pustular rash on the posterior auricular are and neck area. Patient also has trigger finger of the bilateral 3rd finger- dicsused about conservative treatment - splints - if no better - referral to [facility] Medical History Anxiety and depression Biventricular ICD (implantable cardioverter-defibrillator) in place Cardiomyopathy Congestive heart failure COPD (chronic obstructive pulmonary disease) Coronary artery disease Current use of anticoagulant therapy CVA (cerebral vascular accident) Diverticulitis Esophageal hernia GERD (gastroesophageal reflux disease) History of renal calculi HTN (hypertension) Hypercholesterolemia Hyponatremia Osteopenia Type 2 diabetes mellitus with hyperglycemia Umbilical hernia Surgical History History of hemicolectomy History of incisional hernia repair History of pacemaker Family History (Updated 07/23/23 @ 14:18 by Hanane Ross [facility]) Father Medical history unknown Mother Diabetes Hypertension Social History Household Members: Family Housing: House Are you a primary health care recruiter to a significant other at home: No Do you presently have visiting nurse or other home services: No Alcohol intake: never Patient Tobacco Use Status: Never used Tobacco e-Cigarette/Vaping Use: Never Used Second Hand Smoke Exposure: No Advance Directives Date on File: 02/17/22 service: No Current occupational status: retired Cognitive needs: No Hearing needs: No Vision needs: Yes Questionnaire PHQ-9 Over the last 2 weeks, how often have you been bothered by any of the following problems? 1. Little interest or pleasure in doing things: not at all 2. Feeling down, depressed, or hopeless: not at all 3. Trouble falling or staying asleep, or sleeping too much: not at all 4. Feeling tired or having little energy: not at all 5. Poor appetite or overeating: not at all 6. Feeling bad about yourself - or that you are a failure or have let yourself or your family down: not at all 7. Trouble concentrating on things, such as reading the newspaper or watching television: not at all 8. Moving or speaking so slowly that other people could have noticed. Or the opposite - being so fidgety or restless that you have been moving around a lot more than usual: not at all 9. Thoughts that you would be better off or of hurting yourself in some way: not at all Total score: 0 Depression Screening Interpretation: Negative 55672 - PHQ-9 Billing: Yes Source: Developed by Drs. Davian Carr, Kervin Milligan and colleagues, with an educational eusebio from [employer]. Thrive Questionnaire Date Thrive assessed: 12/09/22 AUDIT C Alcohol Use Questionnaire (AUDIT-C) 1. How often do you have a drink containing alcohol?: Monthly or less 2. How many drinks containing alcohol do you have on a typical day when you are drinking?: 1 or 2 3. How often do you have six or more drinks on one occasion?: Never Total Score: 1 Score Reviewed/Action Taken: No EDWARD-7 AMB Questionnaire EDWARD-7 Date EDWARD - 7 assessed: 12/09/22 Source: Developed by Drs. Davian Carr, Kervin Milligan and colleagues, with an educational eusebio from [employer]. Physical exam (Primary Care) Vital Signs: Last Vital Signs Pulse 64 07/23/23 14:17 BP 122/70 07/23/23 14:17 Pulse Ox 96 07/23/23 14:17 Oxygen Delivery Method Room Air 07/23/23 14:17 Care Plan Goal for BP management: Multiple pustular 1 mm rash on the back of the ear and neck area BMI result Body Mass Index 22.8 Tobacco/Smoking Status: Tobacco use Status Tobacco use date assessed 04/06/23 07/23/23 14:19 Patient Tobacco Use Status Never used Tobacco 07/23/23 14:19 e-Cigarette/Vaping Use Never Used 07/23/23 14:19 PHQ-9: PHQ-9 Score PHQ-9: Total score 0 07/23/23 14:33 Depression Screening Interpretation: Negative Thrive Assessment: Date of Thrive Assessment Date Thrive assessed 12/09/22 07/23/23 14:19 Const General: alert; No acute distress Eyes Conjunctivae: conjunctivae normal Resp Auscultation: clear to auscultation bilaterally Cardio Rate: regular rate Rhythm: regular rhythm GI Inspection: Yes normal to inspection Extrem General: Yes normal to inspection and No edema Results AMB Hemoglobin A1c AMB Hemoglobin A1c 7.0 % Last Edit by Hanane Ross CMA on 07/23/23 14:34 Results Reviewed Results Reviewed: Laboratory Last Values Hgb A1c (Clinic) 7.0 % (4.0-6.0) H 07/23/23 14:19 Assessment and Plan Assessment & Plan (1) Pancreatic carcinoma: Code(s): C25.9 - Malignant neoplasm of pancreas, unspecified Plan: Patient is being followed up by hematology oncology. Patient's cancer is progressing and medication has been held due to side effect profile and for better quality of life. Hospice discussion started but wants to be held off (2) HTN (hypertension): Code(s): I10 - Essential (primary) hypertension Qualifiers: Hypertension type: essential hypertension Qualified Code(s): I10 - Essential (primary) hypertension Plan: Continue with blood pressure medication. Decrease salt intake and exercise (3) Hypercholesterolemia: Code(s): E78.00 - Pure hypercholesterolemia, unspecified Plan: With the pancreatic cancer, will just monitor (4) GERD (gastroesophageal reflux disease): Code(s): K21.9 - Gastro-esophageal reflux disease without esophagitis Qualifiers: Esophagitis presence: without esophagitis Qualified Code(s): K21.9 - Gastro-esophageal reflux disease without esophagitis Plan: Avoid the foods that causes that usually spicy foods, tomato products, juices, coffee, soda and foods that your sensitive to. After eating do not lie down, allow 3-4 hours before in lie down. And keep the head of bed above 30 degrees to avoid the acid from going up. (5) CVA (cerebral vascular accident): Comment: Acute parietal lobe posterior infarct November 2019 nonsustained VT Code(s): I63.9 - Cerebral infarction, unspecified Plan: Continue with anticoagulation (6) Type 2 diabetes mellitus with hyperglycemia: Code(s): E11.65 - Type 2 diabetes mellitus with hyperglycemia Plan: Decrease the amount of carbohydrate intake, pasta, bread, rice and potatoes are all sugar and that is aside from all the sweet stuff, remember that fruits are good but they are Sweet also. With the pancreatic cancer will continue to monitor (7) COPD (chronic obstructive pulmonary disease): Code(s): J44.9 - Chronic obstructive pulmonary disease, unspecified Qualifiers: COPD type: COPD with acute exacerbation Qualified Code(s): J44.1 - Chronic obstructive pulmonary disease with (acute) exacerbation Plan: Continue with inhalers (8) History of cardiomyopathy: Code(s): Z86.79 - Personal history of other diseases of the circulatory system Plan: Patient continue to follow-up with cardiology (9) Coronary artery disease: Comment: NSTEMI March 2014 ejection fraction April 2016 25-30% April 2017 15 20% March 2018 15 20% global hypokinesis apical weakness January 2019 severely reduced EF November 2019 echo normal LV Code(s): I25.10 - Atherosclerotic heart disease of [place] coronary artery without angina pectoris Plan: Continue to monitor (10) Difficulty swallowing: Code(s): R13.10 - Dysphagia, unspecified Plan: Barium swallow has been requested (11) Acneiform drug eruption: Code(s): L27.0 - Generalized skin eruption due to drugs and medicaments taken internally Plan: antibiotic prescription sent Orders: Orders AMB Hemoglobin A1c Today Z13.9 - Encounter for screening, unspecified Medications: New amoxicillin-pot clavulanate 500-125 mg (Augmentin) 1 tab PO BID 14 tabs 0RF L27.0 - Generalized skin eruption due to drugs and medicaments taken internally olopatadine 0.2% 1 drp ophthalmic (eye) DAILY PRN 2.5 mL 0RF itching H10.10 - Acute atopic conjunctivitis, unspecified eye Discontinued morphine ER Partial Fill upon patient request. 60 mg PO Q8H 90 tabs 0RF oxycodone Partial Fill upon patient request. 5 mg PO Q4H PRN 80 tabs 0RF Breakthrough Pain, Severe dronabinol administer before lunch and evening meal/dinner 2.5 mg PO BID 60 caps 2RF oxycodone Partial Fill upon patient request. 5 mg PO Q4H PRN 80 tabs 0RF Breakthrough Pain, Severe morphine ER Partial Fill upon patient request. 60 mg PO Q8H 90 tabs 0RF oxycodone Partial Fill upon patient request. 5 mg PO Q4H PRN 80 tabs 0RF Breakthrough Pain, Severe morphine ER Partial Fill upon patient request. 60 mg PO Q8H 90 tabs 0RF morphine ER Partial Fill upon patient request. 60 mg PO Q8H 90 tabs 0RF morphine ER Partial Fill upon patient request. 60 mg PO Q8H 90 tabs 0RF oxycodone Partial Fill upon patient request. 5 mg PO Q8H PRN 60 tabs 0RF Breakthrough Pain, Moderate morphine ER Partial Fill upon patient request. 60 mg PO Q8H 90 tabs 0RF oxycodone Partial Fill upon patient request. 5 mg PO Q6H PRN 80 tabs 0RF Breakthrough Pain, Moderate morphine ER Partial Fill upon patient request. 60 mg PO Q8H 90 tabs 0RF oxycodone Partial Fill upon patient request. 5 mg PO Q4H PRN 80 tabs 0RF Breakthrough Pain, Severe morphine ER Partial Fill upon patient request. 60 mg PO Q8H 90 tabs 0RF morphine ER Partial Fill upon patient request. 60 mg PO Q8H 90 tabs 0RF oxycodone Partial Fill upon patient request. 5 mg PO Q4H PRN 80 tabs 0RF Breakthrough Pain, Severe morphine ER Partial Fill upon patient request. 60 mg PO Q8H 90 tabs 0RF morphine ER Partial Fill upon patient request. 60 mg PO Q8H 90 tabs 0RF Coding Level of Care Code Est Pt Level 4 (35182) Diagnoses Pancreatic carcinoma C25.9 HTN (hypertension) I10 Hypertension type: essential hypertension Hypercholesterolemia E78.00 GERD (gastroesophageal reflux disease) K21.9 Esophagitis presence: without esophagitis CVA (cerebral vascular accident) I63.9 Type 2 diabetes mellitus with hyperglycemia E11.65 COPD (chronic obstructive pulmonary disease) J44.1 COPD type: COPD with acute exacerbation History of cardiomyopathy Z86.79 Coronary artery disease I25.10 Difficulty swallowing R13.10 Acneiform drug eruption L27.0
== END 2023-07-23 15:20 | disposition home or self-care (01) ==
PROVIDERS: Visit Provider Internal Medicine
DX: I10 Essential (primary) hypertension (principal); K21.9 Gastro-esophageal reflux disease without esophagitis; E11.65 Type 2 diabetes mellitus with hyperglycemia; Z86.79 Personal history of other diseases of the circulatory system; I63.9 Cerebral infarction, unspecified; J44.1 Chronic obstructive pulmonary disease with (acute) exacerbation; C25.9 Malignant neoplasm of pancreas, unspecified; E78.00 Pure hypercholesterolemia, unspecified; I25.10 Atherosclerotic heart disease of native coronary artery without angina pectoris; R13.10 Dysphagia, unspecified; L27.0 Generalized skin eruption due to drugs and medicaments taken internally
CPT/HCPCS: 83036; 99214

== ENCOUNTER 2023-07-28 09:57 | Day surgery (SDC) | payer OTHER, SELFPAY ==
[2023-07-23 13:21] VITALS: BMI 22.7
--- NOTE | ~2023-07-28 | FL_ITS ---
EXAMINATION: XR FLUOROSCOPY WITH IMAGES CLINICAL INFORMATION: Therapeutic L3 L4 L5 medial branch block COMPARISON: None available. TECHNIQUE: Fluoroscopy Supervised By: Dr. Rob Gutierrez. Fluoroscopy Time: 0.3 minutes. Cumulative Dose: 2.74 mGy. DAP: 0.0216 Gycm2. Images: 3. FINDINGS: Laura are positioned at the right L3, L4, and L5 levels with contrast injected. FL/FL guidance in OR IMPRESSION: Fluoroscopic guidance for L3-L5 medial branch block.
[2023-07-28 11:30] VITALS: BP 172/72; PULSE 69; RESP 16; TEMP 36.9; O2SAT 98; BMI 22.7
[2023-07-28 11:40] LABS: Glucose, Whole Blood 131 mg/dL (60-115)
--- NOTE | 2023-07-28 11:45 | HO.ANESPROP2 ---
Documented by User: Lorna Linton NP 07/27/23 08:58 HPI - Anesthesia Eval Consult details Narrative: 72yo F for Bilateral Therapeutic L3-L4-L5 Medial Branch Block Pancreatic CA. Palliative, pain care (chronic opioids) ICD in situ for CMP Eliquis for hx CVA PMFSH Active Problems Active Problems: All Active Problems (Updated 07/23/23 @ 15:01 by Malika Mayer MD) Acute allergic conjunctivitis (Acute) Trigger finger (Acute) Acneiform drug eruption (Acute) Difficulty swallowing (Acute) Chronic pain syndrome (Acute) Acute bacterial conjunctivitis (Acute) Peripheral neuropathy (Acute) Left breast mass (Acute) Congestive heart failure (Acute) Actinic keratoses (Acute) Flank pain (Acute) Acidosis, lactic (Acute) Coronary artery disease (Acute) Cardiomyopathy (Acute) COPD exacerbation (Acute) Preop cardiovascular exam (Acute) Constipation (Acute) Headache (Acute) COPD exacerbation (Acute) COPD (chronic obstructive pulmonary disease) (Acute) History of cardiomyopathy (Acute) Breast calcification, left (Acute) Type 2 diabetes mellitus with hyperglycemia (Acute) CVA (cerebral vascular accident) (Acute) Supratherapeutic INR (Acute) Neutropenic fever (Acute) Acute respiratory failure with hypoxia (Acute) COVID-19 (Acute) Biventricular ICD (implantable cardioverter-defibrillator) in place (Acute) Pancreatic carcinoma (Acute) HTN (hypertension) (Acute) Hypercholesterolemia (Acute) GERD (gastroesophageal reflux disease) (Acute) Past Medical History Medical History Anxiety and depression Biventricular ICD (implantable cardioverter-defibrillator) in place Cardiomyopathy Congestive heart failure COPD (chronic obstructive pulmonary disease) Coronary artery disease Current use of anticoagulant therapy CVA (cerebral vascular accident) Diverticulitis Esophageal hernia GERD (gastroesophageal reflux disease) History of renal calculi HTN (hypertension) Hypercholesterolemia Hyponatremia Osteopenia Type 2 diabetes mellitus with hyperglycemia Umbilical hernia Family History Family History Father Medical history unknown Mother Diabetes Hypertension Surgical History Surgical History History of hemicolectomy History of incisional hernia repair History of pacemaker Social History Social History Household Members: Family Housing: House Are you a primary caretaker resort to a significant other at home: No Do you presently have visiting nurse or other home services: No Alcohol intake: never Patient Tobacco Use Status: Never used Tobacco e-Cigarette/Vaping Use: Never Used Second Hand Smoke Exposure: No Use of substances other than those prescribed or required for medical reasons: No Are you DNR?: No Advance Directives: No Advance Directives Information Provided: Yes Advance Directives Date on File: 02/17/22 service: No Current occupational status: retired Cognitive needs: No Hearing needs: No Vision needs: Yes Meds Allergies Allergy/AdvReac Type Severity Reaction Status Date / Time No Known Allergies Allergy Verified 07/28/23 11:22 Home Medications Medication Instructions Recorded Confirmed Last Taken Type albuterol sulfate 90 mcg/actuation 2 puff inhalation Q4H PRN 10/06/22 07/28/23 Unknown History aerosol inhaler Respiratory Distress fluticasone furoate 200 1 ea inhalation DAILY 05/14/23 07/23/23 Unknown History mcg-vilanterol 25 mcg/dose inhalation powder (Breo Ellipta) food supplemt, lactose-reduced 1 ea PO 07/15/23 07/23/23 Unknown History (Ensure oral liquid) Exam Exam Date and Time: July 27, 2023 0852 Height,Weight and Vital Signs: Height 5 ft Weight 52.617 kg Pertinent Lab Results Pertinent Lab Results: Laboratory Tests 07/01/23 07/01/23 16:00 16:00 WBC 4.1 L Hgb 11.6 L Hct 36.0 L Plt Count 117 L Sodium 138 Potassium 4.3 Chloride 104 Carbon Dioxide 27 BUN 14 Creatinine 0.86 Narrative Narrative: Cardiac Device Check 05/2023 Details: Biventricular [place] ICD in place.? Few episodes of nonsustained VT noted.? Atrial and biventricular pacing thresholds excellent.? Atrial ventricular sensing is excellent.? Pacing and shock lead impedance is stable.? No atrial fibrillation noted.? Battery life is at 2.1 years. EKG 05/2023 Details: EKG shows atrially sensed, ventricular paced rhythm ECHO 02/2023 Conclusions: - 1.? Low normal LV ejection fraction with regional wall motion? abnormality? 2.? Normal cardiac valvular Dopplers ? 3.? Normal RV systolic pressure? 4.? No gross pericardial effusion? ? Assessment and Plan Assessment Anesthesia Assessment: Chart Reviewed Documented by User: Dayana Franks DO 07/28/23 11:50 HPI - Anesthesia Eval Consult details Narrative: 72yo F for Bilateral Therapeutic L3-L4-L5 Medial Branch Block Pancreatic CA. Palliative, pain care (chronic opioids) ICD in situ for CMP Eliquis for hx CVA - no residual motor deficits but some memory impairment and occasional headaches. [facility] Past Medical History Medical History Anxiety and depression Biventricular ICD (implantable cardioverter-defibrillator) in place Cardiomyopathy Congestive heart failure COPD (chronic obstructive pulmonary disease) Coronary artery disease Current use of anticoagulant therapy CVA (cerebral vascular accident) Diverticulitis Esophageal hernia GERD (gastroesophageal reflux disease) History of renal calculi HTN (hypertension) Hypercholesterolemia Hyponatremia Osteopenia Type 2 diabetes mellitus with hyperglycemia Umbilical hernia Family History Family History Father Medical history unknown Mother Diabetes Hypertension Surgical History Surgical History History of hemicolectomy History of incisional hernia repair History of pacemaker History of Problems with Anesthesia: No Social History Social History Household Members: Family Housing: House Are you a primary caretaker resort to a significant other at home: No Do you presently have visiting nurse or other home services: No Alcohol intake: never Patient Tobacco Use Status: Never used Tobacco e-Cigarette/Vaping Use: Never Used Second Hand Smoke Exposure: No Use of substances other than those prescribed or required for medical reasons: No Are you DNR?: No Advance Directives: No Advance Directives Information Provided: Yes Advance Directives Date on File: 02/17/22 service: No Current occupational status: retired Cognitive needs: No Hearing needs: No Vision needs: Yes Meds Allergies Allergy/AdvReac Type Severity Reaction Status Date / Time No Known Allergies Allergy Verified 07/28/23 11:22 Home Medications Medication Instructions Recorded Confirmed Last Taken Type albuterol sulfate 90 mcg/actuation 2 puff inhalation Q4H PRN 10/06/22 07/28/23 Unknown History aerosol inhaler Respiratory Distress fluticasone furoate 200 1 ea inhalation DAILY 05/14/23 07/23/23 Unknown History mcg-vilanterol 25 mcg/dose inhalation powder (Breo Ellipta) food supplemt, lactose-reduced 1 ea PO 07/15/23 07/23/23 Unknown History (Ensure oral liquid) Exam Exam Date and Time: July 28, 2023 1145 Height,Weight and Vital Signs: Height 5 ft Weight 52.617 kg Vital Signs Temperature 98.5 F 07/28/23 11:30 Pulse Rate 69 07/28/23 11:30 Respiratory Rate 16 07/28/23 11:30 Blood Pressure 172/72 H 07/28/23 11:30 Pulse Oximetry 98 07/28/23 11:30 Oxygen Delivery Method Room Air 07/28/23 11:30 Temperature 98.5 F 07/28/23 11:30 Pulse Rate 69 07/28/23 11:30 Respiratory Rate 16 07/28/23 11:30 Blood Pressure 172/72 H 07/28/23 11:30 Pulse Oximetry 98 07/28/23 11:30 Oxygen Delivery Method Room Air 07/28/23 11:30 Airway Mallampati Class: III TM Dist: >3cm Neck ROM: Limited Partial: Upper Loose/Missing/Broken Teeth: Yes (missing teeth) Heart: S1S2 Lungs: CTAB Assessment and Plan Assessment Anesthesia Assessment: Anesthesia Plan Discussed and Chart Reviewed Final Anesthetic Review History of Problems with Anesthesia: No NPO: Yes ASA Class: III Final Preanesthetic Review: No Changes in Pt Med Stat, Meds/Allgs Chart Reviewed, Consent Obtained/Reviewed and Anes Risks/Benef Reviewed Patient Risk: Intermediate Procedure Risk: Low Anesthetic Plan Anesthetic Plan: MAC: and Agree w/ Assess. and Plan Disposition: Standard PACU
[2023-07-28] MEDS: Lactated Ringers 1,000 ML 50 ML IVCONT (12:03)
--- NOTE | 2023-07-28 12:09 | MHC.SHP ---
Pre-Procedural Eval Section A Date of Service: 07/28/23 The patient is an INPATIENT: No Changes since office visit: Yes Patient answered all questions The History & Physical has been completed within 30 days and I have reviewed it.: No Section B Chief Complaint: Chronic pain syndrome,Spondylosis w/o myelopathy Relevant Family History (Specify if Yes): No Relevant Social History: Other (specify) Present Medications: see Short Stay Collaborative assessment Medical History: No relevant PMH History of Previous Operations: No relevant previous surgery Allergies: Allergies Allergy/AdvReac Type Severity Reaction Status Date / Time No Known Allergies Allergy Verified 07/28/23 11:22 Review of Systems Sugical H&P ROS: Negative: Constitution, Cardiovascular and Respiratory Exam Surgical H&P Exam: Normal: HEENT, Normal: Heart and Normal: Lungs Plan Diagnosis/Plan: Unchanged I have reviewed the history and physical and performed a pertinent physical examination on my patient. No changes have occurred unless specified. Proceed with bilateral lower lumbar therapeutic MBBs. Time Spent With Patient Time: Total time managing care of this patient today ____ minutes.
[2023-07-28 12:45] VITALS: BP 134/69; PULSE 69; RESP 18; TEMP 36.9; O2SAT 98
[2023-07-28 13:04] VITALS: BP 165/77; PULSE 64; RESP 18; TEMP 36.4; O2SAT 97
[2023-07-28] MEDS: Acetaminophen 325 MG TABLET 650 MG PO (14:21)
--- NOTE | 2023-07-29 10:44 | P.BOP_ITS ---
Brief Operative Note Date of Service: 07/28/23 Pre-op diagnosis: Lumbar spondylosis Post-op diagnosis: same Procedure: Bilateral L3-4, L4-5, L5-S1 therapeutic facet blocks Surgeon: Rob Gutierrez MD Was an Paraprofessional Aide used for this Procedure?: No Estimated blood loss (mL): 1 Pathology: none sent Condition: stable Disposition: PACU
--- NOTE | 2023-07-29 10:45 | P.OP_ITS ---
Operative Note Operative Note Date of Service: 07/29/23 Narrative: Lumbar Maritza-Articular Facet Blocks, Bilateral, L3/L4, L4/L5, L5/S1 After obtaining written consent, pre-procedure blood pressure and pulse were recorded and are in the nursing record for review. The patient was placed in a prone position and sedated by the heel nail rasper. The respective lumbosacral area was prepped with chloraprep and draped in sterile fashion. The target facet joints were visualized using ipsilateral oblique fluoroscopy to reveal the joint line. The skin over the target facet joints was anesthetized with 0.5% lidocaine. A 22 gauge 3.5 inch needle with a small bend on the tip was advanced towards the target facet joint under fluoroscopic guidance until bony contact. The needle was then maneuvered and placed adjacent to the joint capsule. 0.1 cc of Omnipaque 300 was injected outlining the joint capsule as well as showing extra-articular spread in the vicinity of the associated medial branch nerve. No paresthesias were elicited with needle placement and aspiration was negative for blood and CSF. Next, 13mg of methylprednisone mixed with 0.5 ml 0.5% ropivicaine was injected (0.5cc total per level). The identical procedure was performed at the remaining levels. The skin was cleansed and a sterile bandage was applied. Following the procedure the patient's vital signs were stable. The patient tolerated the procedure well and no complications were encountered. The patient was then woken up and brought to the PACU. Following the procedure the patient's vital signs were stable. The patient was discharged home in good condition with post-procedural instructions. Time Out: Immediately prior to the procedure, the following was verbally confirmed that there is a signed consent form and that the correct patient, planned procedure, site and side are consistent with documentation and that necessary equipment and/or blood products are available prior to the start of the case. Complications: none EBL: <2 cc
== END 2023-07-28 14:45 | disposition home or self-care (01) ==
PROVIDERS: PCP Internal Medicine; Visit Provider Internal Medicine
PROC: (CPT 64493; principal; 2023-07-28 11:30)
DX: M47.816 Spondylosis without myelopathy or radiculopathy, lumbar region (principal); G89.4 Chronic pain syndrome; C25.9 Malignant neoplasm of pancreas, unspecified; G62.9 Polyneuropathy, unspecified; J44.9 Chronic obstructive pulmonary disease, unspecified; I11.9 Hypertensive heart disease without heart failure; I43 Cardiomyopathy in diseases classified elsewhere; Z95.810 Presence of automatic (implantable) cardiac defibrillator; E11.65 Type 2 diabetes mellitus with hyperglycemia; I25.10 Atherosclerotic heart disease of native coronary artery without angina pectoris; Z90.49 Acquired absence of other specified parts of digestive tract; Z79.84 Long term (current) use of oral hypoglycemic drugs; Z86.73 Personal history of transient ischemic attack (TIA), and cerebral infarction without residual deficits
CPT/HCPCS: 64493; 64494; 82947; J1040; J1100; Q9967

== ENCOUNTER → 2023-07-28 09:57 | Outpatient (BNV) | payer OTHER, SELFPAY | PROVIDERS: PCP Internal Medicine; Visit Provider Internal Medicine | DX: M47.816 Spondylosis without myelopathy or radiculopathy, lumbar region (principal) | CPT/HCPCS: 64493; 64494; 64495 ==

== ENCOUNTER 2023-08-26 13:37 | Outpatient (AMB) | payer OTHER, SELFPAY ==
--- NOTE | 2023-08-26 13:39 | MHC.OFFVIS ---
Intake Vital Signs 08/26/23 13:43 Height 5 ft 0.31 in BP 144/67 H Blood Pressure Location Lt brachial Position Sitting Pulse 72 Pulse Source Pulse Oximeter Pulse Oximetry (%) 96 Oxygen Delivery Method Room Air Intake Visit Reasons: s/p Therapeutic L3-L4-L5 MBB B/L/ Confirmed. Intake Note: Pain today 08/01 Strap Machine Operator Automatic Required: Yes Strap Machine Operator Automatic Language: Solar Sales Specialist Name: son Accompanied by: Son Allergies No Known Allergies Allergy (Verified 08/26/23 13:44) HPI HPI Comments History of Present Illness Details Patient presents today for follow up to assess response to Lumbar Maritza-Articular Facet Blocks, Bilateral, L3/L4, L4/L5, L5/S1 on 07/29/[address] Gutierrez. Patient is accompanied by her family. Patient reports minimal to no pain relief since procedure. She reports not doing too well and has significant jaundice, fatigue, constant pain in her abdomen radiating to her mid and lower back. She also reports onset of hematuria for one month. Family reports patient's pain is not well controlled with recent injections or on current opioid regime per Oncology. Patient takes MS Contin 3 times a day and the oxycodone every 4 hours as needed. She rates her pain at 9/10. We discussed consideration of Hospice Care for Palliative services. PRIOR: Patient presents today for follow up and discuss plan for lumbar medial branch therapeutic injections for low back pain and Celiac plexus block for pain related to pancreatic cancer. She is accompanied by her son and daugther in-law. Denies any recent cough, cold, infection, fever or other significant changes in medical history since last office visit. Patient denies any bladder or bowel incontinence or saddle anesthesia. PRIOR: Patient is a pleasant 72 years old Indonesian speaking with a complex medical history of diabetes (A1C=6.8), COPD, CAD, CVA, significant anxiety with panic attacks, headaches, hypertension, lumbar degenerative disc disease, upper abdominal varices, pulmonary nodules, large esophageal hernia and end stage pancreatic cancer, presents today for significant mid to low back pain and upper abdomen pain that radiates into her back. She has completed chemotherapy last year. Denies radiating back pain into legs, numbness or tingling. Patient is accompanied by her son Benedicto who assists in translation per patient's request. Patient was referred to us by Dr. Cifuentes from oncology for a nerve block since high opioid doses are not alleviating her pain. She currently takes MS Contin 60 mg TID, Oxycodone 5 mg Q4H prn, extra strength Tylenol. Patient is on Eliquis and reports has hold it prior to teeth extractions or IR procedures before. Patient reports increasing periodic nausea and headaches. She is interested in undergoing therapeutic lumbar MBBs and abdominal nerve block for symptomatic pain relief. We will also consider behavioral evaluation for potential ITDD pain pump for management on cancer pain. Patient's family reports patient has been battling pancreatic cancer for over 2 years. [facility] Medical History Biventricular ICD (implantable cardioverter-defibrillator) in place CVA (cerebral vascular accident) History of renal calculi Umbilical hernia Diverticulitis Osteopenia Anxiety and depression Cardiomyopathy Congestive heart failure Hypercholesterolemia GERD (gastroesophageal reflux disease) Hyponatremia HTN (hypertension) Current use of anticoagulant therapy COPD (chronic obstructive pulmonary disease) Coronary artery disease Esophageal hernia Type 2 diabetes mellitus with hyperglycemia Surgical History History of incisional hernia repair History of pacemaker History of hemicolectomy Family History Father Medical history unknown Mother Diabetes Hypertension Social History Household Members: Family Housing: House Are you a primary child care giver to a significant other at home: No Do you presently have visiting nurse or other home services: No Alcohol intake: never Patient Tobacco Use Status: Never used Tobacco e-Cigarette/Vaping Use: Never Used Second Hand Smoke Exposure: No Use of substances other than those prescribed or required for medical reasons: No Have you been hit, kicked, punched, or otherwise hurt by someone within the past year? If so, by whom?: No Do you feel safe in your current relationship?: No [facility] Practices: Oriental Orthodox/ Religious Advance Directives Date on File: 02/17/22 Recently lost weight without trying: Yes How much weight loss: 24-33 pounds Eating poorly because of decreased appetite: Yes Nutrition screen score: 6 Nutrition Risks: Acute nausea or vomiting x1 week Patient : No : No Poor oral hygiene: No service: No Current occupational status: retired Cognitive needs: No Hearing needs: No Vision needs: Yes Review of Systems Const All systems reviewed & are unremarkable except as noted in HPI and below Physical Exam Vital Signs: Last Vital Signs Pulse 72 08/26/23 13:43 BP 144/67 H 08/26/23 13:43 Pulse Ox 96 08/26/23 13:43 Oxygen Delivery Method Room Air 08/26/23 13:43 General: Appears afebrile. Alert and oriented. Mood and affect appropriate. Follows and participates in conversation appropriately. Respiratory effort is unlabored. No cough. Able to transition from sit to stand unassisted. Ambulates with slow, antalgic gait, holding on to her family with ambulation. Eyes General: appearance normal, both eyes and all related structures Eyelids: Yes eyelids normal Sclerae: scleral abnormal (jaundice) bilateral GI Palpation (GI): Soft to palpation, nontender and no guarding Back/Spine/Pelvis Cervical Spine: No Cervical spine tenderness Thoracic/Lumbar Spine: pain with thoraco-lumbar ROM, paraspinal muscle tenderness, thoraco-lumbar ROM limited, No thoracic spinal tenderness and lumbar spinal tenderness at L4 and at L5 Skin General skin exam: dry skin, jaundice and turgor decreased Lesions: no lesions Rashes: no rashes Assessment & Plan Assessment & Plan (1) Peripheral neuropathy: Code(s): G62.9 - Polyneuropathy, unspecified (2) Pancreatic carcinoma: Code(s): C25.9 - Malignant neoplasm of pancreas, unspecified (3) Chronic pain syndrome: Code(s): G89.4 - Chronic pain syndrome (4) Abdominal pain: Code(s): R10.9 - Unspecified abdominal pain Qualifiers: Abdominal location: periumbilical Qualified Code(s): R10.33 - Periumbilical pain (5) Low back pain: Code(s): M54.50 - Low back pain, unspecified Plan Patient is status post Lumbar Maritza-Articular Facet Blocks, Bilateral, L3/L4, L4/L5, L5/S1 on 07/29/23 with no pain relief. She is in significant pain, partially managed with MS Contin 60 mg Q8H and Oxycodone 5 mg Q4H prn. Family will discuss potentially adjusting patient's opioid medications and adding Fentanyl patch with Oncology Provider or consider Hospice Care for Palliative services. We will hold off on Celiac plexus block injection for intractable upper abdominal pain related to end stage pancreatic cancer as injection can cause significant discomfort and muscle spasms. All questions and concerns have been answered and patient and her son agreed with the plan. Follow up as needed. Coding Level of Care Code Est Pt Level 3 (76754) Diagnoses Peripheral neuropathy G62.9 Pancreatic carcinoma C25.9 Chronic pain syndrome G89.4 Abdominal pain R10.33 Abdominal location: periumbilical Low back pain M54.50
[2023-08-26 13:43] VITALS: BP 144/67; PULSE 72; O2SAT 96
== END 2023-08-26 14:03 | disposition home or self-care (01) ==
PROVIDERS: PCP Internal Medicine; Visit Provider Nurse Practitioner Family
DX: G62.9 Polyneuropathy, unspecified (principal); C25.9 Malignant neoplasm of pancreas, unspecified; G89.4 Chronic pain syndrome; R10.33 Periumbilical pain; M54.50 Low back pain, unspecified
CPT/HCPCS: 99213

== ENCOUNTER → 2023-08-26 13:37 | Outpatient (BNVA) | payer OTHER, SELFPAY | PROVIDERS: PCP Internal Medicine; Visit Provider Nurse Practitioner Family | DX: G89.4 Chronic pain syndrome (principal); R10.33 Periumbilical pain; M54.50 Low back pain, unspecified; G62.9 Polyneuropathy, unspecified; C25.9 Malignant neoplasm of pancreas, unspecified; Z79.891 Long term (current) use of opiate analgesic; Z98.890 Other specified postprocedural states | CPT/HCPCS: 99212 ==

== ENCOUNTER 2023-08-26 14:30 | Outpatient (RCR) | payer OTHER, SELFPAY ==
[2020-11-28 10:52] VITALS: BP 160/72; PULSE 71; RESP 12; TEMP 36.7; O2SAT 98; BMI 26.9
--- NOTE | 2020-11-28 11:34 | P.PNHO_ITS ---
Medical Summary - Medical Summary Date of Service: 11/28/20 Chief complaint: FOLLOW-UP FOR PANCREATIC CANCER. Medical Summary: DIAGNOSIS: Concern is for pancreatic cancer. Interval History Interval history: This is a pleasant 70-year-old lady, who was seen in house. She presented to the hospital with complaints of abdominal pain. She complained of pain all over , on her abdomen, back, chest, legs. She reported that the abdominal pain had been going on for 2 months but worsened over the past 3 days. The pain is generalized abdominal pain, 8/10, intermittent, nonradiating, associated with nausea and vomiting. She also had occasional chills with no fever. She reported the pain to be just generalized discomfort. When asked about weight loss she reports about 1-2 lb of weight loss but not more. She also complained of years of shortness of breath with no change. She denied urinary symptoms and no lower extremity edema. Patient also complained of bloating, and low appetite. Her temp was 98.6?, pulse rate of 69, respiratory rate of 19, and oxygen saturation of 95% on room air. Labs: significant for PT of 27.7 INR of 2.3, sodium of 130, BUN of 11 with creatinine of 0.77, troponin 38 trended down to 37, BNP of 259, CT abdomen showed: New mass in the head neck and body of the pancreas measuring 4.5 x 6.5 cm worrisome for neoplasm. New bilateral pulmonary nodules. Upper abdominal varices. Large esophageal hernia, or intrathoracic stomach. Diverticulosis of the colon. Probable small uterine fibroid. Hospital course: The patient was evaluated for abdominal pain. I recommended, Biopsy of the pancreas. Discussed with IR who recommended holding both aspirin and warfarin for 3 days prior to procedure which was to be scheduled for next Wednesday. After discussing with the patient, she preferred to come back at the time of the biopsy. Her INR of 1.6 at the day of discharge. She was noted to have hyponatremia which seems to be chronic around 130-131. BNP was noted to be mildly elevated around 200 which was the baseline for her, looking back at her previous readings. Not in acute CHF exacerbation. les. Upper abdominal varices. Large esophageal hernia Past medical history: Diabetes, COPD, CVA, hypertension. She continues to feel fatigued. Still has pain in her abdomen. It is partly relieved with the analgesics. Appetite is not good. She has lost weight. Review of Systems - Constitutional Reports system reviewed and no additional complaints, except as documented, Reports fatigue, Reports weakness, Reports weight loss, Denies fever(s) - Eyes Reports system reviewed and no additional complaints, except as documented, Denies blurry vision - ENT Reports system reviewed and no additional complaints, except as documented - Cardiovascular Reports system reviewed and no additional complaints, except as documented, Denies chest pain at rest - Respiratory Reports no additional respiratory complaints, Denies chest congestion - Gastrointestinal Reports system reviewed and no additional complaints, except as documented, Reports abdominal pain, Reports bloating, Reports change in bowel habits, Reports excessive passing of gas, Reports feeling full early, Reports dyspepsia, Denies black, tarry stools - Genitourinary Reports no additional female genitourinary complaints, Denies abnormal vaginal bleeding - Musculoskeletal Reports system reviewed and no additional complaints, except as documented, Reports back pain - Integumentary/Breasts Skin/Breast: Reports no additional skin complaints, Denies bleeding lesions - Neurologic Reports system reviewed and no additional complaints, except as documented - Psychiatric Reports system reviewed and no additional complaints, except as documented, Reports anxiety - Endocrine Reports no additional endocrine complaints, Denies excessive sweating - Hematologic/Lymphatic Reports system reviewed and no additional complaints, except as documented, Denies easy bruising - Allergic/Immunologic Reports system reviewed and no additional complaints, except as documented, Reports GI upset with certain foods PMFSH Medical History: Medical History (Last Updated 11/29/20 @ 13:44 by Ml Tijerina NP-C) Anxiety and depression Biventricular ICD (implantable cardioverter-defibrillator) in place Cardiomyopathy Congestive heart failure COPD (chronic obstructive pulmonary disease) Coronary artery disease Current use of anticoagulant therapy CVA (cerebral vascular accident) Diverticulitis Esophageal hernia GERD (gastroesophageal reflux disease) History of renal calculi HTN (hypertension) Hypercholesterolemia Hyponatremia Osteopenia Type 2 diabetes mellitus with hyperglycemia Umbilical hernia Functional capacity: uses cane/walker Patient : No Family History: Family History (Last Reviewed 11/29/20 @ 13:34 by Ml Tijerina, RICHARD-C) Father Medical history unknown Mother Diabetes Hypertension Surgical History: Surgical History (Last Reviewed 11/29/20 @ 13:34 by Ml Tijerina NP-C) History of hemicolectomy History of incisional hernia repair History of pacemaker Smoking status: Never smoker Home Medications and Allergies Home Medications Medication Instructions Recorded Confirmed Type Spiriva with HandiHaler 1 cap INHALATION DAILY 10/30/20 11/28/20 History aspirin 81 mg PO DAILY 10/30/20 11/28/20 History calcium carbonate-vitamin D3 1 tab PO BID 10/30/20 11/28/20 History carbamazepine 200 mg PO DAILY 10/30/20 11/28/20 History gabapentin 300 mg PO BID 10/30/20 11/28/20 History metformin 500 mg PO DAILY 10/30/20 11/28/20 History metoprolol succinate 200 mg PO DAILY 10/30/20 11/28/20 History omeprazole 40 mg PO DAILY 10/30/20 11/28/20 History budesonide-formoterol HFA 160 2 puff INHALATION BID 11/19/20 11/28/20 History mcg-4.5 mcg/actuation aerosol inhaler oxycodone 5 mg tablet 5 mg PO TID PRN 11/19/20 11/28/20 History warfarin 2 mg tablet 2 mg PO DAILY 11/19/20 11/28/20 History blood sugar diagnostic #10 ea 11/28/20 11/28/20 History amiodarone 200 mg tablet 200 mg PO DAILY 11/29/20 History Allergies Allergy/AdvReac Type Severity Reaction Status Date / Time No Known Allergies Allergy Verified 11/05/20 06:34 Exam Vital signs: Vital Signs Temp 98.0 F 11/28/20 10:52 Pulse 71 11/28/20 10:52 Resp 12 11/28/20 10:52 BP 160/72 H 11/28/20 10:52 Pulse Ox 98 11/28/20 10:52 Intake & Output 11/27/20 11/28/20 11/28/20 18:59 06:59 18:59 Other: Weight 62.6 kg Weight 62.6 kg Body Mass Index 26.9 - Constitutional Present: no acute distress, mild distress - Routine HEENT Exam Head: Present: normal inspection Eye: Present: normal appearance ENT: Present: mucous membranes moist - Routine Neck Exam Present: full ROM - Routine Respiratory Exam Present: CTAB - Routine Cardiovascular Exam Cardiovascular: Present: RRR, S1, S2 - Routine Abdominal Exam Present: soft, tenderness. Absent: nontender - Routine Rectal Exam Patient deferred: digital exam - Routine Extremities Exam Present: nontender - Routine Back/Spine/Pelvis Exam Back/Spine: Present: full ROM - Routine Skin Exam Present: intact - Routine Neurological Exam Present: alert, oriented X3 - Routine Psychiatric Exam Present: normal affect Data - Labs CBC & Chem 7: 11/28/20 12:04 11/28/20 12:04 Progress Note: A/P (1) Pancreatic carcinoma Status: Acute Assessment and plan: This is a pleasant 69-year-old lady who presents with a couple of months history of abdominal pain that recently worsened. CT scan of the abdomen revealed: New mass in the head, neck and body the pancreas measuring 4.5 x 6.5 cm worrisome for neoplasm. New bilateral pulmonary nodules. Upper abdominal varices. Large esophageal hernia or intrathoracic stomach. Diverticulosis of the colon. Probable small uterine fibroid. Concern was for pancreatic cancer. Tumor marker Ca 19/9 is :4524. Biopsy was done on 11/12. Pathology revealed: Positive for atypical mucinous neoplasm. Moderately cellular specimen consisting of sheets of mucinous epithelium with cytologic atypia characterized by loss of clarity an irregularly shaped nuclei with Dr. chromatin in irregular nuclear membrane. Differential diagnosis includes an adenocarcinoma, mucinous cystic neoplasm and intraductal papillary mucinous neoplasm. I will proceed with a PET scan for further evaluation. This was done on 12/03, and revealed: Mild FDG activity in the pancreatic mass involving the head and adjacent pancreatic body corresponding to the recently biopsied malignancy. Multiple predominantly subcentimeter pulmonary nodules are present throughout the lungs likely represent metastases. Most of these are too small to be yaquelin cterized on the PET images but the largest shows FDG activity. No additional abnormality suspicious for metastatic or other malignant lesions are noted. Chronic left posterior parietal cerebral infarction Large hiatal hernia.. My plan is to proceed with systemic chemotherapy. Will treat with gemcitabine and Abraxane based regimen. She underwent chemotherapy teaching. Details of the regimen including potential side effects of hypersensitivity reaction, nausea vomiting diarrhea, peripheral neuropathy, hepatotoxicity, risk of pancytopenia, need for antibiotic blood transfusion as well as growth factors was all addressed with her. She understands and is willing to proceed. PLAN: She will return on December 12 to get started on systemic therapy. Will give her 3 cycles and re-stage with another CT scan. I will see her back in a week's time, Thank you for the consult, I will follow along with you, CC: Dr. Lancaster. SSS. - Time Spent With Patient Total time spent is greater than 50% in coordination of care (as documented) at patient's floor/unit and/or counseling patient: 25 - 35 minutes
[2020-11-28 12:05] LABS: MANUAL DIFF FLAG NO
--- NOTE | 2020-11-28 12:08 | MHC.HEMONCMA ---
Patient came in for a consult for pancreatic cancer, states that she is in some pain that the pain meds are not working for her. Medication list and allergies updated. Patient is to have a PET scan and a follow up in 1 week.
[2020-11-28 12:14] LABS: Basophils Percent Auto 0.3 % (0-2); Eosinophils Absolute Auto 0.7 X10*3/uL (0.0-0.4); Hemoglobin 12.8 g/dl (12.0-16.0); Imm Gran Abs Auto 0.02 X10*3/uL (0.00-0.03); Imm Gran Pct Auto 0.3 % (0.0-0.4); Lymphocytes Absolute Auto 1.1 X10*3/uL (1.2-4.9); Lymphocytes Percent Auto 18.1 % (20-40); Mean Corpuscular Volume 90.7 fL (80-98); Mean Platelet Volume 10.3 fL (9.4-12.3); Monocytes Absolute Auto 0.4 X10*3/uL (0.1-1.2); Monocytes Percent Auto 6.9 % (2-11); Neutrophils Absolute Auto 3.7 X10*3/uL (2.0-8.3); Neutrophils Percent Auto 63.4 % (45-73); Platelet Count 178 X10*3/uL (160-400); Red Blood Count 4.41 X10*6/uL (4.20-5.50); Red Cell Distribution Width 12.8 % (11.0-16.0); White Blood Count 5.9 X10*3/uL (4.8-10.8)
[2020-11-28 12:24] LABS: INTERNATIONAL NORM RATIO 1.9 (0.9-1.1); Prothrombin Time 22.2 SEC (10.8-13.0)
[2020-11-28 12:49] LABS: Alanine Aminotransferase 24 U/L (0-31); Albumin Level 4.4 g/dL (3.5-5.0); Alkaline Phosphatase 55 U/L (39-117); Anion Gap 14 (12-20); Aspartate Amino Transferase 28 U/L (5-31); Bilirubin Total 0.4 mg/dL (0.0-1.0); Blood Urea Nitrogen 16 mg/dL (9-16); Calcium 9.4 mg/dL (8.4-10.2); Carbon Dioxide 28 mmol/L (22-29); Chloride 98 mmol/L (96-108); Estimated Glomerular Filt Rate > 60; Glucose Random 226 mg/dL (60-115); Potassium 4.5 mmol/l (3.3-5.1); Sodium 135 mmol/L (135-145); Total Protein 7.4 g/dL (6.5-8.0)
--- NOTE | 2020-11-28 13:04 | MHC.HEMONC ---
Nurse Navigator - Attended consult w Dr. Cifuentes, pt, SW and her family. Her son Benedicto and his Nevin. Needs f/up w Dr. Eddy for chest occasional discomfort symptoms (AICD check?) - pt thinks it may be discharging when pain and emotions are high. Pt in moderate pain - Dr. Cifuentes Rx'd MS Contin 30mg bid w continuation of Oxycodone 5mg q 6hrs for breakthrough pain Pt. has been experiencing constipation - [place] protocol discussed, informational hand-out shared. Educated on good hydration and dietary recommendations. She will start using Ensure as appetite has decreased. PET Scan scheduled for 12/03/19 - pt to f/up w Dr. Cifuentes soon after for staging and treatment plan. She has ERP MANAGER through [facility], 15 hrs/wk = 3 hrs/day. Family support also. No VNA at this time as she is not homebound and is maintaining ADL's and med regimen w family/ERP MANAGER support. INR was completed here in Oncology Lab. INR 1.9 - Patricia, supervisor cured meats, in [facility] notified of INR, pain med regimen and [place] protocol. She will be calling pt. to dose based on INR.
--- NOTE | 2020-11-28 13:44 | MHC.HEMONC ---
CARDIOLOGY APPt - T/C to Dr Eddy's office, ext - [phone]. Spoke w Rosalia Jones - Dr. Cifuentes requesting pt. see Dr. Eddy parminder for left sided chest discomfort. Newly diagnosed w Pancreatic CA. Patient thinks her AICD may be firing, alejandra. when experiencing emotional and physical distress. Harika states she will talk w providers to find soonest available appt. I asked that she call Nevin, pt's [id number] at [phone] w appt time and date. Family aware of this plan of care.
[2020-12-02 13:38] LABS: Carbohydrate Antigen 19-9 4855 U/mL (<34)
--- NOTE | 2020-12-06 16:19 | MHC.HEMONC ---
CALL- [facility] ANTI-COG -INR WAS NOT DONE, PT. W/ANTICOAG CANCELLED TODAY, BECAUSE PT WAS NOT FEELING WELL.
--- NOTE | 2020-12-09 09:57 | MHC.HEMONCSW ---
PATIENT IS A SINGLE 70 YEAR OLD FEMALE, INDEPENDENT, ABLE TO MAKE NEEDS KNOWN. CHINESE SPEAKING ONLY. DIAGNOSIS IS PANCREATIC CANCER, MEDICAL WORK UP CONTINUES. SHE IS ACCOMPANIED BY SON AND DAUGHTER IN LAW ASTRID. SON IS HEALTH CARE PROXY. FEELS ANXIOUS DUE TO ILLNESS BUT ALSO UNRESOLVED WORSENING PAIN. MULTIPLE COMORBIDITIES. RESIDES ALONE BUT FAMILY SEES HER DAILY. LENCHO ZEE [phone] D-I-L ASTRID [phone] DISCUSSED ILLNESS AND TREATMENTS, TO HAVE BIOPSY REPEATED. MD PROVIDED PAIN MEDICATIONS DECLINES COUNSELING REFERRAL. REASSURANCE, GUIDANCE, EDUCATION AND SUPPORT PROVIDED. ALL ARE AWARE OF MY AVAILABILITY..
--- NOTE | 2020-12-11 13:46 | MHC.HEMONCSW ---
GEMCIT[facility]INE AND PAXIL DO NOT REQUIRE A PA PER MITCHELL Guzman AT [facility] BUY/BILL DEPT. INFORMED MARGARETH CHAPA.
[2020-12-11 14:03] LABS: MANUAL DIFF FLAG NO
[2020-12-11 14:08] LABS: Basophils Percent Auto 0.4 % (0-2); Eosinophils Absolute Auto 0.2 X10*3/uL (0.0-0.4); Eosinophils Percent Auto 3.5 % (0-4); Hemoglobin 13.1 g/dl (12.0-16.0); Imm Gran Abs Auto 0.02 X10*3/uL (0.00-0.03); Imm Gran Pct Auto 0.4 % (0.0-0.4); Lymphocytes Absolute Auto 0.8 X10*3/uL (1.2-4.9); Lymphocytes Percent Auto 16.5 % (20-40); Mean Corpuscular Hemoglobin 28.7 pg (27.0-33.0); Mean Corpuscular Volume 89.7 fL (80-98); Mean Platelet Volume 10.3 fL (9.4-12.3); Monocytes Absolute Auto 0.5 X10*3/uL (0.1-1.2); Monocytes Percent Auto 9.5 % (2-11); Neutrophils Absolute Auto 3.4 X10*3/uL (2.0-8.3); Neutrophils Percent Auto 69.7 % (45-73); Platelet Count 144 X10*3/uL (160-400); Red Blood Count 4.57 X10*6/uL (4.20-5.50); Red Cell Distribution Width 12.6 % (11.0-16.0); White Blood Count 4.8 X10*3/uL (4.8-10.8)
[2020-12-11 14:21] LABS: INTERNATIONAL NORM RATIO 1.2 (0.9-1.1); Prothrombin Time 14.8 SEC (10.8-13.0)
[2020-12-11 14:47] LABS: Alanine Aminotransferase 59 U/L (0-31); Albumin Level 4.3 g/dL (3.5-5.0); Alkaline Phosphatase 62 U/L (39-117); Anion Gap 14 (12-20); Aspartate Amino Transferase 79 U/L (5-31); Bilirubin Total 0.3 mg/dL (0.0-1.0); Blood Urea Nitrogen 12 mg/dL (9-16); Calcium 8.6 mg/dL (8.4-10.2); Carbon Dioxide 26 mmol/L (22-29); Chloride 99 mmol/L (96-108); Creatinine Clr Calc Pharmacy 44.5; Estimated Glomerular Filt Rate 57; Glucose Random 181 mg/dL (60-115); Sodium 135 mmol/L (135-145); Total Protein 7.3 g/dL (6.5-8.0)
[2020-12-11 15:00] VITALS: BMI 26.0
[2020-12-11 15:01] VITALS: BP 117/56; PULSE 71; RESP 18; TEMP 36.6; O2SAT 94
[2020-12-12 10:59] VITALS: BP 171/77; PULSE 82; RESP 20; TEMP 36.3; O2SAT 96; BMI 25.9
[2020-12-12] MEDS: Acetaminophen 325 MG TABLET 650 MG PO (11:19)
[2020-12-12] MEDS: ondansetron HCL/NS 16 MG/50 ML PIGGYBACK 200 MG IV (11:19)
[2020-12-12] MEDS: dexAMETHasone 6 MG TABLET 12 MG PO (11:20)
--- NOTE | 2020-12-12 11:34 | P.PNHO_ITS ---
Medical Summary - Medical Summary Date of Service: 12/20/20 Chief complaint: Follow-up for pancreatic cancer. Here to start treatment Medical Summary: DIAGNOSIS: Concern is for pancreatic cancer. CURRENT THERAPY: To start gemcitabine Abraxane. Interval History Interval history: This is a pleasant 70-year-old lady, who was seen in house. She presented to the hospital with complaints of abdominal pain. She complained of pain all over , on her abdomen, back, chest, legs. She reported that the abdominal pain had been going on for 2 months but worsened over the past 3 days. The pain is generalized abdominal pain, 8/10, intermittent, nonradiating, associated with nausea and vomiting. She also had occasional chills with no fever. She reported the pain to be just generalized discomfort. When asked about weight loss she reports about 1-2 lb of weight loss but not more. She also complained of years of shortness of breath with no change. She denied urinary symptoms and no lower extremity edema. Patient also complained of bloating, and low appetite. Her temp was 98.6?, pulse rate of 69, respiratory rate of 19, and oxygen saturation of 95% on room air. Labs: significant for PT of 27.7 INR of 2.3, sodium of 130, BUN of 11 with creatinine of 0.77, troponin 38 trended down to 37, BNP of 259, CT abdomen showed: New mass in the head neck and body of the pancreas measuring 4.5 x 6.5 cm worrisome for neoplasm. New bilateral pulmonary nodules. Upper abdominal varices. Large esophageal hernia, or intrathoracic stomach. Diverticulosis of the colon. Probable small uterine fibroid. Hospital course: The patient was evaluated for abdominal pain. I recommended, Biopsy of the pancreas. Discussed with IR who recommended holding both aspirin and warfarin for 3 days prior to procedure which was to be scheduled for next Wednesday. After discussing with the patient, she preferred to come back at the time of the biopsy. Her INR of 1.6 at the day of discharge. She was noted to have hyponatremia which seems to be chronic around 130-131. BNP was noted to be mildly elevated around 200 which was the baseline for her, looking back at her previous readings. Not in acute CHF exacerbation. les. Upper abdominal varices. Large esophageal hernia Past medical history: Diabetes, COPD, CVA, hypertension. She continues to feel fatigued. Still has pain in her abdomen. It is partly relieved with the analgesics. Appetite is not good. She has lost weight. Review of Systems - Constitutional Reports system reviewed and no additional complaints, except as documented, Reports fatigue, Reports weakness, Reports weight loss, Denies fever(s) - Eyes Reports system reviewed and no additional complaints, except as documented - ENT Reports system reviewed and no additional complaints, except as documented - Cardiovascular Reports system reviewed and no additional complaints, except as documented - Respiratory Reports no additional respiratory complaints - Gastrointestinal Reports system reviewed and no additional complaints, except as documented, Reports abdominal pain, Reports constipation, Reports nausea - Genitourinary Reports no additional female genitourinary complaints - Musculoskeletal Reports system reviewed and no additional complaints, except as documented, Reports back pain, Reports body aches - Integumentary/Breasts Skin/Breast: Reports no additional skin complaints - Neurologic Reports system reviewed and no additional complaints, except as documented, Reports weakness - Psychiatric Reports system reviewed and no additional complaints, except as documented - Endocrine Reports no additional endocrine complaints - Hematologic/Lymphatic Reports system reviewed and no additional complaints, except as documented - Allergic/Immunologic Reports system reviewed and no additional complaints, except as documented PMFSH Medical History: Medical History (Last Reviewed 12/18/20 @ 16:35 by Eva Carroll MD) Anxiety and depression Biventricular ICD (implantable cardioverter-defibrillator) in place Cardiomyopathy Congestive heart failure COPD (chronic obstructive pulmonary disease) Coronary artery disease Current use of anticoagulant therapy CVA (cerebral vascular accident) Diverticulitis Esophageal hernia GERD (gastroesophageal reflux disease) History of renal calculi HTN (hypertension) Hypercholesterolemia Hyponatremia Osteopenia Type 2 diabetes mellitus with hyperglycemia Umbilical hernia Functional capacity: uses cane/walker Patient : No Family History: Family History (Last Reviewed 12/18/20 @ 16:36 by Eva Carroll MD) Father Medical history unknown Mother Diabetes Hypertension Surgical History: Surgical History (Last Reviewed 12/17/20 @ 10:17 by Ashanti Goncalves DO) History of hemicolectomy History of incisional hernia repair History of pacemaker Social History: Social History (Last Reviewed 12/18/20 @ 16:36 by Eva Carroll MD) Living Situation History: Household Members: Family Housing: House Alcohol History: Alcohol intake: never Alcohol History Details: Alcohol intake frequency: does not drink Occupation Assessmet: service: No Current occupational status: retired Smoking status: Never smoker Home Medications and Allergies Current Medications: Current Medications Generic Name Dose Route Start Last Admin Trade Name Emely PRN Reason Stop Dose Admin Acetaminophen 650 mg 12/12/20 00:00 12/12/20 11:19 Acetaminophen 325 Mg Tablet PO 12/12/20 23:59 650 mg ONCE ERWIN Administration Dexamethasone 12 mg 12/12/20 00:00 12/12/20 11:20 Dexamethasone 6 Mg Tablet PO 12/12/20 23:59 12 mg ONCE ERWIN Administration Ondansetron HCl 16 mg in 50 mls @ 200 mls/hr 12/12/20 00:00 12/12/20 11:19 Zofran IV 12/12/20 23:59 200 mls/hr ONCE ERWIN Administration Paclitaxel/Albumin ( 40 mls @ 80 mls/hr 12/12/20 00:00 Nanoparticle) 200 mg/ IV IV 12/12/20 23:59 Miscellaneous Supplies ONCE ERWIN Gemcitabine HCl 1,620 mg/ 292.6319 mls @ 585.263 mls/hr 12/12/20 00:00 Sodium Chloride IV ONCE EWRIN Home Medications Medication Instructions Recorded Confirmed Type aspirin 81 mg PO DAILY 10/30/20 12/17/20 History calcium carbonate-vitamin D3 1 tab PO BID 10/30/20 12/17/20 History carbamazepine 200 mg PO DAILY 10/30/20 12/17/20 History gabapentin 300 mg PO BID 10/30/20 12/17/20 History metoprolol succinate 200 mg PO DAILY 10/30/20 12/17/20 History omeprazole 40 mg PO DAILY 10/30/20 12/17/20 History budesonide-formoterol HFA 160 2 puff INHALATION BID 11/19/20 12/17/20 History mcg-4.5 mcg/actuation aerosol inhaler warfarin 2 mg tablet 2 mg PO DAILY 11/19/20 12/17/20 History blood sugar diagnostic #10 ea 11/28/20 11/28/20 History amiodarone 200 mg tablet 200 mg PO DAILY 11/29/20 12/17/20 History ondansetron HCl [Zofran] 4 mg PO Q8H 12/17/20 12/17/20 History warfarin 1 tab PO DAILY 12/17/20 History Allergies Allergy/AdvReac Type Severity Reaction Status Date / Time No Known Allergies Allergy Verified 11/05/20 06:34 Exam Vital signs: Vital Signs Temp 97.4 F 12/12/20 10:59 Pulse 82 12/12/20 10:59 Resp 20 12/12/20 10:59 BP 171/77 H 12/12/20 10:59 Pulse Ox 96 12/12/20 10:59 Intake & Output 12/11/20 12/12/20 12/12/20 18:59 06:59 18:59 Other: Weight 61.1 kg 61 kg Weight 61 kg Body Mass Index 25.9 - Constitutional Present: no acute distress, mild distress - Routine HEENT Exam Head: Present: normal inspection Eye: Present: normal appearance ENT: Present: mucous membranes moist - Routine Neck Exam Present: full ROM - Routine Respiratory Exam Present: CTAB - Routine Cardiovascular Exam Cardiovascular: Present: RRR, S1, S2 - Routine Abdominal Exam Present: soft, tenderness. Absent: nontender - Routine Rectal Exam Patient deferred: digital exam - Routine Extremities Exam Present: nontender - Routine Back/Spine/Pelvis Exam Back/Spine: Present: full ROM - Routine Skin Exam Present: intact - Routine Neurological Exam Present: alert, oriented X3 - Routine Psychiatric Exam Present: normal affect Data - Labs CBC & Chem 7: 12/11/20 13:58 12/11/20 13:58 Labs: 11/28/20 12:04 CA 19-9 [Carbohydrate Antigen 19-9] Routine Complete Blood Count Auto Diff Routine Comprehensive Met. Panel Routine PT with INR [Prothrombin Time INR] Routine 12/02/20 00:00 Acetaminophen [Tylenol] 650 mg PO ONCE dexAMETHasone [Decadron] 12 mg PO ONCE ondansetron HCL/NS [Zofran] 16 mg in 50 ml IV ONCE 12/11/20 13:58 Complete Blood Count Auto Diff Routine Comprehensive Met. Panel Routine PT with INR [Prothrombin Time INR] Routine 12/12/20 00:00 Acetaminophen [Tylenol] 650 mg PO ONCE dexAMETHasone [Decadron] 12 mg PO ONCE ondansetron HCL/NS [Zofran] 16 mg in 50 ml IV ONCE Laboratory Last Values WBC 4.8 X10*3/uL (4.8-10.8) 12/11/20 13:58 RBC 4.57 X10*6/uL (4.20-5.50) 12/11/20 13:58 Hgb 13.1 g/dl (12.0-16.0) 12/11/20 13:58 Hct 41.0 % (37-47) 12/11/20 13:58 MCV 89.7 fL (80-98) 12/11/20 13:58 MCH 28.7 pg (27.0-33.0) 12/11/20 13:58 MCHC 32.0 g/dl (31.0-35.0) 12/11/20 13:58 RDW 12.6 % (11.0-16.0) 12/11/20 13:58 Plt Count 144 X10*3/uL (160-400) L 12/11/20 13:58 MPV 10.3 fL (9.4-12.3) 12/11/20 13:58 Immature Gran % (Auto) 0.4 % (0.0-0.4) 12/11/20 13:58 Neut % (Auto) 69.7 % (45-73) 12/11/20 13:58 Lymph % (Auto) 16.5 % (20-40) L 12/11/20 13:58 [place] % (Auto) 9.5 % (2-11) 12/11/20 13:58 Eos % (Auto) 3.5 % (0-4) 12/11/20 13:58 Baso % (Auto) 0.4 % (0-2) 12/11/20 13:58 Lymph # (Auto) 0.8 X10*3/uL (1.2-4.9) L 12/11/20 13:58 [place] # (Auto) 0.5 X10*3/uL (0.1-1.2) 12/11/20 13:58 Eos # (Auto) 0.2 X10*3/uL (0.0-0.4) 12/11/20 13:58 Baso # (Auto) 0.0 X10*3/uL (0.0-0.2) 12/11/20 13:58 Abs Immat Gran (auto) 0.02 X10*3/uL (0.00-0.03) 12/11/20 13:58 Absolute Neuts (auto) 3.4 X10*3/uL (2.0-8.3) 12/11/20 13:58 Absolute Nucleated RBC 0.000 X10*3/uL (0.0-0.012) 12/11/20 13:58 Nucleated RBC % (auto) 0.0 /100WBC (0.0-0.2) 12/11/20 13:58 PT 14.8 SEC (10.8-13.0) H D 12/11/20 13:58 INR 1.2 (0.9-1.1) H 12/11/20 13:58 Sodium 135 mmol/L (135-145) 12/11/20 13:58 Potassium 4.0 mmol/l (3.3-5.1) 12/11/20 13:58 Chloride 99 mmol/L (96-108) 12/11/20 13:58 Carbon Dioxide 26 mmol/L (22-29) 12/11/20 13:58 Anion Gap 14 (12-20) 12/11/20 13:58 BUN 12 mg/dL (9-16) 12/11/20 13:58 Creatinine 0.97 mg/dL (0.5-1.4) 12/11/20 13:58 Estim Creat Clear Calc 44.5 12/11/20 13:58 Estimated GFR 57 12/11/20 13:58 Random Glucose 181 mg/dL (60-115) H 12/11/20 13:58 Calcium 8.6 mg/dL (8.4-10.2) D 12/11/20 13:58 Total Bilirubin 0.3 mg/dL (0.0-1.0) 12/11/20 13:58 AST 79 U/L (5-31) H 12/11/20 13:58 ALT 59 U/L (0-31) H 12/11/20 13:58 Alkaline Phosphatase 62 U/L (39-117) 12/11/20 13:58 Total Protein 7.3 g/dL (6.5-8.0) 12/11/20 13:58 Albumin 4.3 g/dL (3.5-5.0) 12/11/20 13:58 CA 19-9 Antigen 4855 U/mL (<34) H 11/28/20 12:04 Progress Note: A/P (1) Pancreatic carcinoma Status: Acute Assessment and plan: This is a pleasant 69-year-old lady who presents with a couple of months history of abdominal pain that recently worsened. CT scan of the abdomen revealed: New mass in the head, neck and body the pancreas measuring 4.5 x 6.5 cm worrisome for neoplasm. New bilateral pulmonary nodules. Upper abdominal varices. Large esophageal hernia or intrathoracic stomach. Diverticulosis of the colon. Probable small uterine fibroid. Concern was for pancreatic cancer. Tumor marker Ca 19/9 is :4524. Biopsy was done on 11/12. Pathology revealed: Positive for atypical mucinous neoplasm. Moderately cellular specimen consisting of sheets of mucinous epithelium with cytologic atypia characterized by loss of clarity an irregularly shaped nuclei with Dr. chromatin in irregular nuclear membrane. Differential diagnosis includes an adenocarcinoma, mucinous cystic neoplasm and intraductal papillary mucinous neoplasm. I will proceed with a PET scan for further evaluation. This was done on 12/03, and revealed: Mild FDG activity in the pancreatic mass involving the head and adjacent pancreatic body corresponding to the recently biopsied malignancy. Multiple predominantly subcentimeter pulmonary nodules are present throughout the lungs likely represent metastases. Most of these are too small to be characterized on the PET images but the largest shows FDG activity. No additional abnormality suspicious for metastatic or other malignant lesions are noted. Chronic left posterior parietal cerebral infarction Large hiatal hernia.. My plan is to proceed with systemic chemotherapy. Will treat with gemcitabine and Abraxane based regimen. She underwent chemotherapy teaching. Details of the regimen including potential side effects of hypersensitivity reaction, nausea vomiting diarrhea, peripheral neuropathy, hepatotoxicity, risk of pancytopenia, need for antibiotic blood transfusion as well as growth factors was all addressed with her. She understands and is willing to proceed. PLAN: She is here to get started on systemic therapy. Will give her 3 cycles and re-stage with another CT scan. I will see her back in a week's time, Thank you for the consult, I will follow along with you, CC: Dr. Lancaster. SSS. - Time Spent With Patient Total time spent is greater than 50% in coordination of care (as documented) at patient's floor/unit and/or counseling patient: 25 - 35 minutes
[2020-12-12 13:53] VITALS: BP 139/67; PULSE 69; RESP 18; TEMP 37.1; O2SAT 94
--- NOTE | 2020-12-12 15:16 | MHC.HEMONC ---
Pt in for Teach yesterday as well as labs herson [id number] Abraxane /Gemzar today. She was anxious upon coming in and her BP was elevated. She had good appetite for lunch and took an Oxycodone with good relief of back pain. She was seen by Dr Cifuentes and her dtr-in-law had opportunity to ask questions re: diagnosis. She will remain on Warfarin and not get Lovenox per discussion with Dr Cifuentes. I informed [facility]. Her INR was low yesterday so they will f/u with her and she may get INRs at home going forward. Pt tolerated chemo very well today. She has Ondansetron for nausea if needed at home.
--- NOTE | 2020-12-16 11:22 | MHC.HEMONC ---
Pt son and [id number] called. Pt now has COVID and has fever 100+, chills. They wanted to know if Tylenol is OK and I told them yes. Pt is eating and drinking with some nausea. Refill on Zofran requested and given to Dr Cifuentes. Pt has no resp c/o. I told them for her to stay home and not come in for labs this week. We will touch base with them next week re: her sx and her chemo appt.
--- NOTE | 2020-12-26 16:19 | MHC.HEMONC ---
Pt scheduled for lab draw today and chemo treatment tomorrow 12/27. Pt recently diagnosed with covid-19. Call to pt to check on her and see how she is feeling. Still having some coughing and SOB. Denies fever. Appointments rescheduled to next week. Pt called and notified. Son called and left message to talk to Dr Cifuentes. Called son back, and voice mail left.
--- NOTE | 2021-01-02 12:34 | MHC.HEMONC ---
Pt here for lab draw. States she feels better today. Denies fever, chills. States has poor taste sensation. Will return tomorrow for treatment
[2021-01-02 12:37] LABS: MANUAL DIFF FLAG NO
[2021-01-02 12:48] LABS: Basophils Percent Auto 0.3 % (0-2); Eosinophils Absolute Auto 0.1 X10*3/uL (0.0-0.4); Eosinophils Percent Auto 1.1 % (0-4); Hematocrit 41.4 % (37-47); Hemoglobin 13.4 g/dl (12.0-16.0); Imm Gran Abs Auto 0.11 X10*3/uL (0.00-0.03); Imm Gran Pct Auto 1.3 % (0.0-0.4); Lymphocytes Absolute Auto 1.3 X10*3/uL (1.2-4.9); Lymphocytes Percent Auto 15.3 % (20-40); Mean Corpuscular HGB Conc 32.4 g/dl (31.0-35.0); Mean Corpuscular Hemoglobin 28.8 pg (27.0-33.0); Mean Platelet Volume 9.6 fL (9.4-12.3); Monocytes Absolute Auto 0.5 X10*3/uL (0.1-1.2); Monocytes Percent Auto 5.3 % (2-11); Neutrophils Absolute Auto 6.7 X10*3/uL (2.0-8.3); Neutrophils Percent Auto 76.7 % (45-73); Platelet Count 270 X10*3/uL (160-400); Red Blood Count 4.65 X10*6/uL (4.20-5.50); White Blood Count 8.7 X10*3/uL (4.8-10.8)
[2021-01-02 13:15] LABS: Alanine Aminotransferase 28 U/L (0-31); Albumin Level 3.9 g/dL (3.5-5.0); Alkaline Phosphatase 63 U/L (39-117); Anion Gap 10 (12-20); Aspartate Amino Transferase 25 U/L (5-31); Bilirubin Total 0.7 mg/dL (0.0-1.0); Blood Urea Nitrogen 17 mg/dL (9-16); Calcium 8.8 mg/dL (8.4-10.2); Carbon Dioxide 29 mmol/L (22-29); Chloride 101 mmol/L (96-108); Creatinine Clr Calc Pharmacy 56.2; Estimated Glomerular Filt Rate > 60; Glucose Random 146 mg/dL (60-115); Potassium 4.4 mmol/L (3.3-5.1); Sodium 136 mmol/L (135-145); Total Protein 6.8 g/dL (6.5-8.0)
[2021-01-03 10:21] VITALS: BP 139/63; PULSE 78; RESP 18; TEMP 36.4; O2SAT 97; BMI 24.6
[2021-01-03] MEDS: Acetaminophen 325 MG TABLET 650 MG PO (11:05)
[2021-01-03] MEDS: dexAMETHasone 6 MG TABLET 12 MG PO (11:05)
[2021-01-03] MEDS: ondansetron HCL/NS 16 MG/50 ML PIGGYBACK 200 MG IV (11:06)
--- NOTE | 2021-01-03 13:21 | MHC.HEMONC ---
GEMZAR/ABRAXANE well tolerated. No complaints at this time. VSS, son at bedside. Patient declined need for certified court interpreter. Patient to return next week for labs per Dr. Cifuentes.
--- NOTE | 2021-01-03 15:03 | MHC.HEMONCSW ---
DECLINES COLLECTION SUPERVISOR, SON IS PRESENT. REPORTS COPING FAIRLY WELL, ATE A GOOD LUNCH HERE. DENIES STRESS OR COMPLAINTS AT THIS TIME. EDUCATION AND SUPPORT PROVIDED.
[2021-01-10 11:35] LABS: MANUAL DIFF FLAG NO
[2021-01-10 11:40] LABS: Eosinophils Absolute Auto 0.4 X10*3/uL (0.0-0.4); Eosinophils Percent Auto 12.1 % (0-4); Hematocrit 34.3 % (37-47); Hemoglobin 10.9 g/dl (12.0-16.0); Imm Gran Abs Auto 0.01 X10*3/uL (0.00-0.03); Imm Gran Pct Auto 0.3 % (0.0-0.4); Lymphocytes Absolute Auto 0.8 X10*3/uL (1.2-4.9); Lymphocytes Percent Auto 25.6 % (20-40); Mean Corpuscular HGB Conc 31.8 g/dl (31.0-35.0); Mean Corpuscular Hemoglobin 28.8 pg (27.0-33.0); Mean Corpuscular Volume 90.7 fL (80-98); Mean Platelet Volume 10.4 fL (9.4-12.3); Monocytes Absolute Auto 0.2 X10*3/uL (0.1-1.2); Monocytes Percent Auto 5.2 % (2-11); Neutrophils Absolute Auto 1.7 X10*3/uL (2.0-8.3); Neutrophils Percent Auto 56.8 % (45-73); Platelet Count 111 X10*3/uL (160-400); Red Blood Count 3.78 X10*6/uL (4.20-5.50); Red Cell Distribution Width 13.9 % (11.0-16.0); White Blood Count 3.1 X10*3/uL (4.8-10.8)
[2021-01-10 12:09] LABS: Alanine Aminotransferase 33 U/L (0-31); Albumin Level 3.8 g/dL (3.5-5.0); Alkaline Phosphatase 58 U/L (39-117); Anion Gap 12 (12-20); Aspartate Amino Transferase 29 U/L (5-31); Bilirubin Total 0.5 mg/dL (0.0-1.0); Blood Urea Nitrogen 10 mg/dL (9-16); Calcium 8.6 mg/dL (8.4-10.2); Carbon Dioxide 28 mmol/L (22-29); Chloride 102 mmol/L (96-108); Creatinine Clr Calc Pharmacy 56.3; Estimated Glomerular Filt Rate > 60; Glucose Random 230 mg/dL (60-115); Potassium 4.7 mmol/L (3.3-5.1); Sodium 137 mmol/L (135-145); Total Protein 6.5 g/dL (6.5-8.0)
[2021-01-17 10:32] VITALS: BP 140/65; PULSE 73; RESP 18; TEMP 36.8; O2SAT 96; BMI 25.6
[2021-01-17 10:45] LABS: MANUAL DIFF FLAG NO
[2021-01-17 10:48] LABS: Basophils Percent Auto 0.4 % (0-2); Eosinophils Absolute Auto 0.5 X10*3/uL (0.0-0.4); Hemoglobin 11.8 g/dl (12.0-16.0); Imm Gran Abs Auto 0.01 X10*3/uL (0.00-0.03); Imm Gran Pct Auto 0.2 % (0.0-0.4); Mean Corpuscular HGB Conc 31.1 g/dl (31.0-35.0); Mean Corpuscular Hemoglobin 28.7 pg (27.0-33.0); Mean Corpuscular Volume 92.5 fL (80-98); Mean Platelet Volume 10.3 fL (9.4-12.3); Monocytes Absolute Auto 0.5 X10*3/uL (0.1-1.2); Monocytes Percent Auto 9.3 % (2-11); Neutrophils Absolute Auto 3.4 X10*3/uL (2.0-8.3); Neutrophils Percent Auto 62.1 % (45-73); Platelet Count 182 X10*3/uL (160-400); Red Blood Count 4.11 X10*6/uL (4.20-5.50); Red Cell Distribution Width 14.7 % (11.0-16.0); White Blood Count 5.4 X10*3/uL (4.8-10.8)
[2021-01-17 11:25] LABS: Alanine Aminotransferase 43 U/L (0-31); Albumin Level 4.1 g/dL (3.5-5.0); Alkaline Phosphatase 74 U/L (39-117); Anion Gap 11 (12-20); Aspartate Amino Transferase 37 U/L (5-31); Bilirubin Total 0.4 mg/dL (0.0-1.0); Blood Urea Nitrogen 9 mg/dL (9-16); Calcium 8.9 mg/dL (8.4-10.2); Carbon Dioxide 28 mmol/L (22-29); Chloride 105 mmol/L (96-108); Creatinine Clr Calc Pharmacy 56.6; Estimated Glomerular Filt Rate > 60; Glucose Fasting 166 mg/dL (60-99); Potassium 4.3 mmol/L (3.3-5.1); Sodium 140 mmol/L (135-145); Total Protein 6.9 g/dL (6.5-8.0)
[2021-01-17] MEDS: dexAMETHasone 6 MG TABLET 12 MG PO (11:51)
[2021-01-17] MEDS: ondansetron HCL/NS 16 MG/50 ML PIGGYBACK 200 MG IV (11:52)
[2021-01-17] MEDS: oxyCODONE HCl Immed Release 5 MG TABLET PO (14:15)
--- NOTE | 2021-01-17 15:29 | MHC.HEMONC ---
Pt here for Day 1 cycle 2 of Gemzar and Abraxane. #22 angio inserted right hand without success x2. #22 angio inserted left hand by Ruby Kulkarni RN. NS 0.9 % 500ml started. Lab draw by phlebotomy- Labs reviewed. Pre medicated with 12 mg decadron po and 16mg zofran IV. Abraxane infused without difficulty. Gemzar started with pt complaints of burning at site. Gemzar paused. IV site patent with blood return 0.9% NS rate increased to flush site. Ice pack to area. Dr Cifuentes in room to assess pt. Pt medicated with 5mg of oxycodone po for IV site discomfort 03/31. Pt agreeable to restart Gemzar. Chemo restarted and infused with minimal pt discomfort. IV removed with no edema or redness at site. Follow up appointment made. Discharge packet given.
[2021-01-24 10:16] LABS: MANUAL DIFF FLAG NO
[2021-01-24 10:25] LABS: Basophils Percent Auto 0.3 % (0-2); Eosinophils Absolute Auto 0.1 X10*3/uL (0.0-0.4); Eosinophils Percent Auto 2.9 % (0-4); Hematocrit 35.9 % (37-47); Hemoglobin 11.3 g/dl (12.0-16.0); Imm Gran Abs Auto 0.03 X10*3/uL (0.00-0.03); Imm Gran Pct Auto 0.8 % (0.0-0.4); Lymphocytes Absolute Auto 0.9 X10*3/uL (1.2-4.9); Lymphocytes Percent Auto 23.1 % (20-40); Mean Corpuscular HGB Conc 31.5 g/dl (31.0-35.0); Mean Corpuscular Volume 92.1 fL (80-98); Monocytes Absolute Auto 0.2 X10*3/uL (0.1-1.2); Monocytes Percent Auto 4.6 % (2-11); Neutrophils Absolute Auto 2.6 X10*3/uL (2.0-8.3); Neutrophils Percent Auto 68.3 % (45-73); Platelet Count 225 X10*3/uL (160-400); Red Cell Distribution Width 14.5 % (11.0-16.0); White Blood Count 3.7 X10*3/uL (4.8-10.8)
--- NOTE | 2021-01-24 10:30 | MHC.HEMONC ---
Pt here for labs drawn. Pt had labs drawn and departed. Follow-up given.
[2021-01-24 11:09] LABS: Alanine Aminotransferase 42 U/L (0-31); Albumin Level 4.1 g/dL (3.5-5.0); Alkaline Phosphatase 68 U/L (39-117); Anion Gap 15 (12-20); Aspartate Amino Transferase 37 U/L (5-31); Bilirubin Total 0.4 mg/dL (0.0-1.0); Blood Urea Nitrogen 16 mg/dL (9-16); Calcium 9.2 mg/dL (8.4-10.2); Carbon Dioxide 27 mmol/L (22-29); Chloride 101 mmol/L (96-108); Creatinine Clr Calc Pharmacy 51.8; Estimated Glomerular Filt Rate > 60; Glucose Random 270 mg/dL (60-115); Potassium 4.5 mmol/L (3.3-5.1); Sodium 138 mmol/L (135-145); Total Protein 6.9 g/dL (6.5-8.0)
[2021-01-28 11:31] LABS: Carbohydrate Antigen 19-9 4830 U/mL (<34)
[2021-01-31 10:24] VITALS: BP 148/62; PULSE 69; RESP 18; TEMP 36.8; O2SAT 96
[2021-01-31 10:25] VITALS: BMI 25.4
[2021-01-31 10:45] LABS: MANUAL DIFF FLAG NO
[2021-01-31 11:18] LABS: Basophils Percent Auto 0.2 % (0-2); Eosinophils Absolute Auto 0.4 X10*3/uL (0.0-0.4); Hemoglobin 11.1 g/dl (12.0-16.0); Imm Gran Abs Auto 0.02 X10*3/uL (0.00-0.03); Imm Gran Pct Auto 0.4 % (0.0-0.4); Lymphocytes Absolute Auto 0.7 X10*3/uL (1.2-4.9); Lymphocytes Percent Auto 13.3 % (20-40); Mean Corpuscular HGB Conc 31.7 g/dl (31.0-35.0); Mean Corpuscular Hemoglobin 29.2 pg (27.0-33.0); Mean Corpuscular Volume 92.1 fL (80-98); Mean Platelet Volume 10.6 fL (9.4-12.3); Monocytes Absolute Auto 0.5 X10*3/uL (0.1-1.2); Monocytes Percent Auto 9.5 % (2-11); Neutrophils Absolute Auto 3.7 X10*3/uL (2.0-8.3); Neutrophils Percent Auto 69.6 % (45-73); Platelet Count 128 X10*3/uL (160-400); Red Cell Distribution Width 15.1 % (11.0-16.0); White Blood Count 5.3 X10*3/uL (4.8-10.8)
[2021-01-31 11:44] LABS: Alanine Aminotransferase 48 U/L (0-31); Alkaline Phosphatase 64 U/L (39-117); Anion Gap 13 (12-20); Aspartate Amino Transferase 51 U/L (5-31); Bilirubin Total 0.4 mg/dL (0.0-1.0); Blood Urea Nitrogen 18 mg/dL (9-16); Calcium 8.7 mg/dL (8.4-10.2); Carbon Dioxide 26 mmol/L (22-29); Chloride 107 mmol/L (96-108); Creatinine Clr Calc Pharmacy 50.2; Estimated Glomerular Filt Rate > 60; Glucose Random 260 mg/dL (60-115); Potassium 4.9 mmol/L (3.3-5.1); Sodium 141 mmol/L (135-145); Total Protein 6.7 g/dL (6.5-8.0)
[2021-01-31] MEDS: dexAMETHasone 6 MG TABLET 12 MG PO (12:10)
[2021-01-31] MEDS: ondansetron HCL/NS 16 MG/50 ML PIGGYBACK 200 MG IV (12:11)
--- NOTE | 2021-01-31 14:20 | MHC.HEMONC ---
Pt here for cycle 2 day 15 of Gemcitabine and Albumin bound Paclitaxel IV. Lab draw by beehive kiln supervisor-specimen to lab. #22 angio inserted in right hand without difficulty. 0.9% NS infusing. Lab results reviewed. Pre medicated with 12mg of decadron orally and 16mg zofran IV. Paclitaxel and Gemcitabine IV given as ordered. Pt denies discomfort at IV site. IV removed-no edema or redness at site. Follow up appointments made and given to family member.
--- NOTE | 2021-01-31 15:13 | MHC.HEMONCSW ---
PATIENT HERE FOR CHEMO, ACCOMPANIED BY SON. DENIES DISTRESS OR CONCERNS AT THIS TIME. BOTH ARE AWARE OF MY AVAILABILITY.
[2021-02-14 10:04] VITALS: BMI 25.9
[2021-02-14 10:06] VITALS: BP 141/65; PULSE 69; RESP 18; TEMP 36.5; O2SAT 97
[2021-02-14 10:15] LABS: MANUAL DIFF FLAG NO
[2021-02-14 10:42] LABS: Basophils Percent Auto 0.4 % (0-2); Eosinophils Absolute Auto 0.5 X10*3/uL (0.0-0.4); Eosinophils Percent Auto 10.3 % (0-4); Hemoglobin 10.7 g/dl (12.0-16.0); Imm Gran Abs Auto 0.02 X10*3/uL (0.00-0.03); Imm Gran Pct Auto 0.4 % (0.0-0.4); Lymphocytes Absolute Auto 0.8 X10*3/uL (1.2-4.9); Mean Corpuscular HGB Conc 30.6 g/dl (31.0-35.0); Mean Corpuscular Hemoglobin 28.5 pg (27.0-33.0); Mean Corpuscular Volume 93.1 fL (80-98); Mean Platelet Volume 10.4 fL (9.4-12.3); Monocytes Absolute Auto 0.5 X10*3/uL (0.1-1.2); Monocytes Percent Auto 10.1 % (2-11); Neutrophils Absolute Auto 2.8 X10*3/uL (2.0-8.3); Neutrophils Percent Auto 60.8 % (45-73); Platelet Count 139 X10*3/uL (160-400); Red Blood Count 3.76 X10*6/uL (4.20-5.50); Red Cell Distribution Width 15.9 % (11.0-16.0); White Blood Count 4.7 X10*3/uL (4.8-10.8)
[2021-02-14 11:01] LABS: Alanine Aminotransferase 112 U/L (0-31); Alkaline Phosphatase 73 U/L (39-117); Anion Gap 14 (12-20); Aspartate Amino Transferase 84 U/L (5-31); Bilirubin Total 0.4 mg/dL (0.0-1.0); Blood Urea Nitrogen 13 mg/dL (9-16); Calcium 8.8 mg/dL (8.4-10.2); Carbon Dioxide 27 mmol/L (22-29); Chloride 105 mmol/L (96-108); Creatinine Clr Calc Pharmacy 51.3; Estimated Glomerular Filt Rate > 60; Glucose Random 156 mg/dL (60-115); Potassium 4.9 mmol/L (3.3-5.1); Sodium 141 mmol/L (135-145); Total Protein 6.6 g/dL (6.5-8.0)
[2021-02-14] MEDS: ondansetron HCL/NS 16 MG/50 ML PIGGYBACK 200 MG IV (11:23)
--- NOTE | 2021-02-14 11:27 | P.PNHO_ITS ---
Medical Summary - Medical Summary Date of Service: 02/14/21 Chief complaint: Follow-up for: Pancreatic cancer. Medical Summary: DIAGNOSIS: Concern is for pancreatic cancer. CURRENT THERAPY: Here for gemcitabine Abraxane. Interval History Interval history: This is a pleasant 70-year-old lady, here for a follow-up visit. She tells me she has been feeling quite well. Denies much fatigability. She is actually quite independent. She moved back into her own home. The other day she cooked a meal for her son. Denies any fever nor chills. No headache no dizziness. She denies abdominal pain. Sometimes she has nausea after treatment. She takes the anti emetic. No heartburn indigestion. After the treatment sometimes she has diarrhea. That is self-limited. Sometimes she gets constipated. No blood in the stools. Appetite is fair. Her weight is down. She is in excellent spirits. Rest of the review of systems is unremarkable. Previous history: She was seen in house. She presented to the hospital with complaints of abdominal pain. She complained of pain all over , on her abdomen, back, chest, legs. She reported that the abdominal pain had been going on for 2 months but worsened over the past 3 days. The pain is generalized abdominal pain, 8/10, intermittent, nonradiating, associated with nausea and vomiting. She also had occasional chills with no fever. She reported the pain to be just generalized discomfort. When asked about weight loss she reports about 1-2 lb of weight loss but not more. She also complained of years of shortness of breath with no change. She denied urinary symptoms and no lower extremity edema. Patient also complained of bloating, and low appetite. Her temp was 98.6?, pulse rate of 69, respiratory rate of 19, and oxygen satur ation of 95% on room air. Labs: significant for PT of 27.7 INR of 2.3, sodium of 130, BUN of 11 with creatinine of 0.77, troponin 38 trended down to 37, BNP of 259, CT abdomen showed: New mass in the head neck and body of the pancreas measuring 4.5 x 6.5 cm worrisome for neoplasm. New bilateral pulmonary nodules. Upper abdominal varices. Large esophageal hernia, or intrathoracic stomach. Diverticulosis of the colon. Probable small uterine fibroid. Hospital course: The patient was evaluated for abdominal pain. I recommended, Biopsy of the pancreas. Discussed with IR who recommended holding both aspirin and warfarin for 3 days prior to procedure which was to be scheduled for next Wednesday. After discussing with the patient, she preferred to come back at the time of the biopsy. Her INR of 1.6 at the day of discharge. She was noted to have hyponatremia which seems to be chronic around 130-131. BNP was noted to be mildly elevated around 200 which was the baseline for her, looking back at her previous readings. Not in acute CHF exacerbation. les. Upper abdominal varices. Large esophageal hernia Past medical history: Diabetes, COPD, CVA, hypertension. Review of Systems - Constitutional Reports no additional constitutional complaints, Reports lack of energy, Reports weight loss - Eyes Reports no additional eye complaints - ENT Reports no additional ear, nose, mouth, and throat complaints - Cardiovascular Reports no additional cardiovascular complaints - Respiratory Reports no additional respiratory complaints - Gastrointestinal Reports no additional gastrointestinal complaints - Genitourinary Reports no additional female genitourinary complaints - Musculoskeletal Reports no additional musculoskeletal complaints - Integumentary/Breasts Skin/Breast: Reports no additional skin complaints - Neurologic Reports no additional neurologic complaints, Reports weakness - Psychiatric Reports no additional psychiatric complaints - Endocrine Reports no additional endocrine complaints - Hematologic/Lymphatic Reports no additional hematologic/lymphatic complaints - Allergic/Immunologic Reports no additional allergic/immunologic complaints PMFSH Medical History: Medical History (Last Reviewed 01/17/21 @ 10:56 by Rufina Go RN) Anxiety and depression Biventricular ICD (implantable cardioverter-defibrillator) in place Cardiomyopathy Congestive heart failure COPD (chronic obstructive pulmonary disease) Coronary artery disease Current use of anticoagulant therapy CVA (cerebral vascular accident) Diverticulitis Esophageal hernia GERD (gastroesophageal reflux disease) History of renal calculi HTN (hypertension) Hypercholesterolemia Hyponatremia Osteopenia Type 2 diabetes mellitus with hyperglycemia Umbilical hernia Functional capacity: uses cane/walker Patient : No Family History: Family History (Last Reviewed 01/17/21 @ 10:55 by Ruifna Go RN) Father Medical history unknown Mother Diabetes Hypertension Surgical History: Surgical History (Last Reviewed 01/17/21 @ 10:56 by Rufina Go RN) History of hemicolectomy History of incisional hernia repair History of pacemaker Social History: Social History (Last Reviewed 12/27/20 @ 13:33 by Shimarlia Kwade) Living Situation History: Household Members: Family Housing: House Alcohol History: Alcohol intake: never Alcohol History Details: Alcohol intake frequency: does not drink Occupation Assessmet: service: No Current occupational status: retired Smoking status: Never smoker Oncology Screenings - ECOG Performance Status ECOG Performance Status: 0 Home Medications and Allergies Current Medications: Current Medications Generic Name Dose Route Start Last Admin Trade Name Phiq PRN Reason Stop Dose Admin Gemcitabine HCl 1,600 mg/ 292.1056 mls @ 584.21 mls/hr 01/31/21 00:00 01/31/21 13:55 Sodium Chloride IV Infused ONCE ERWIN Infusion Dexamethasone Sodium Phosphate 12 mg in 50 mls @ 200 mls/hr 02/14/21 00:00 Decadron IV 02/14/21 23:59 ONCE ERWIN Ondansetron HCl 16 mg in 50 mls @ 200 mls/hr 02/14/21 00:00 02/14/21 11:23 Zofran IV 02/14/21 23:59 200 mls/hr ONCE ERWIN Administration Paclitaxel/Albumin ( 40 mls @ 80 mls/hr 02/14/21 00:00 Nanoparticle) 200 mg/ IV IV 02/14/21 23:59 Miscellaneous Supplies ONCE ERWIN Gemcitabine HCl 1,000 mg/ 291.8419 mls @ 583.684 mls/hr 02/14/21 00:00 Gemcitabine HCl 590 mg/ Sodium IV 02/14/21 23:59 Chloride ONCE ERWIN Home Medications Medication Instructions Recorded Confirmed Type aspirin 81 mg PO DAILY 10/30/20 02/21/21 History calcium carbonate-vitamin D3 1 tab PO BID 10/30/20 02/21/21 History carbamazepine 200 mg PO DAILY 10/30/20 02/21/21 History gabapentin 300 mg PO BID 10/30/20 02/21/21 History metoprolol succinate 200 mg PO DAILY 10/30/20 02/21/21 History omeprazole 40 mg PO DAILY 10/30/20 02/21/21 History budesonide-formoterol HFA 160 2 puff INHALATION BID 11/19/20 02/21/21 History mcg-4.5 mcg/actuation aerosol inhaler warfarin 2 mg tablet 2 mg PO DAILY 11/19/20 02/21/21 History blood sugar diagnostic #10 ea 11/28/20 02/21/21 History ondansetron HCl [Zofran] 4 mg PO Q8H 12/17/20 02/21/21 History ipratropium 0.5 mg-albuterol 3 mg ml INHALATION QID 02/14/21 02/21/21 History (2.5 mg base)/3 mL nebulization soln multivitamin 1 tab PO DAILY 02/14/21 02/21/21 History fkrmhivpqi-gxvavnwwfpkoo-ygmcttou 1 tab PO Q8H PRN 02/21/21 02/21/21 History 50 mg-325 mg-40 mg tablet docusate sodium 100 mg capsule 100 mg PO BID 02/21/21 02/21/21 History lancets 30 gauge #100 ea 02/21/21 02/21/21 History metformin 500 mg tablet 500 mg PO DAILY 02/21/21 02/21/21 History metformin 500 mg tablet,extended 500 mg PO BID 02/21/21 02/21/21 History release 24 hr ondansetron 4 mg disintegrating mg PO 02/21/21 02/21/21 History tablet Allergies Allergy/AdvReac Type Severity Reaction Status Date / Time No Known Allergies Allergy Verified 11/05/20 06:34 Exam Vital signs: Vital Signs Temp 97.7 F 02/14/21 10:06 Pulse 69 02/14/21 10:06 Resp 18 02/14/21 10:06 BP 141/65 H 02/14/21 10:06 Pulse Ox 97 02/14/21 10:06 Intake & Output 02/13/21 02/14/21 02/14/21 18:59 06:59 18:59 Other: Weight 60.8 kg Weight in Grams 71748 Weight 60.8 kg Body Mass Index 25.9 - Constitutional Present: no acute distress, mild distress - Routine HEENT Exam Head: Present: normal inspection Eye: Present: normal appearance ENT: Present: mucous membranes moist - Routine Neck Exam Present: full ROM - Routine Respiratory Exam Present: CTAB - Routine Cardiovascular Exam Cardiovascular: Present: RRR, S1, S2 - Routine Abdominal Exam Present: soft, tenderness. Absent: nontender - Routine Rectal Exam Patient deferred: digital exam - Routine Extremities Exam Present: nontender - Routine Back/Spine/Pelvis Exam Back/Spine: Present: full ROM - Routine Skin Exam Present: intact - Routine Neurological Exam Present: alert, oriented X3 - Routine Psychiatric Exam Present: normal affect Data - Labs CBC & Chem 7: 02/14/21 10:14 02/14/21 10:14 Labs: 11/28/20 12:04 CA 19-9 [Carbohydrate Antigen 19-9] Routine Complete Blood Count Auto Diff Routine Comprehensive Met. Panel Routine PT with INR [Prothrombin Time INR] Routine 12/02/20 00:00 Acetaminophen [Tylenol] 650 mg PO ONCE dexAMETHasone [Decadron] 12 mg PO ONCE ondansetron HCL/NS [Zofran] 16 mg in 50 ml IV ONCE 12/11/20 13:58 Complete Blood Count Auto Diff Routine Comprehensive Met. Panel Routine PT with INR [Prothrombin Time INR] Routine 12/12/20 00:00 Acetaminophen [Tylenol] 650 mg PO ONCE dexAMETHasone [Decadron] 12 mg PO ONCE ondansetron HCL/NS [Zofran] 16 mg in 50 ml IV ONCE Laboratory Last Values WBC 4.8 X10*3/uL (4.8-10.8) 12/11/20 13:58 RBC 4.57 X10*6/uL (4.20-5.50) 12/11/20 13:58 Hgb 13.1 g/dl (12.0-16.0) 12/11/20 13:58 Hct 41.0 % (37-47) 12/11/20 13:58 MCV 89.7 fL (80-98) 12/11/20 13:58 MCH 28.7 pg (27.0-33.0) 12/11/20 13:58 MCHC 32.0 g/dl (31.0-35.0) 12/11/20 13:58 RDW 12.6 % (11.0-16.0) 12/11/20 13:58 Plt Count 144 X10*3/uL (160-400) L 12/11/20 13:58 MPV 10.3 fL (9.4-12.3) 12/11/20 13:58 Immature Gran % (Auto) 0.4 % (0.0-0.4) 12/11/20 13:58 Neut % (Auto) 69.7 % (45-73) 12/11/20 13:58 Lymph % (Auto) 16.5 % (20-40) L 12/11/20 13:58 [place] % (Auto) 9.5 % (2-11) 12/11/20 13:58 Eos % (Auto) 3.5 % (0-4) 12/11/20 13:58 Baso % (Auto) 0.4 % (0-2) 12/11/20 13:58 Lymph # (Auto) 0.8 X10*3/uL (1.2-4.9) L 12/11/20 13:58 [place] # (Auto) 0.5 X10*3/uL (0.1-1.2) 12/11/20 13:58 Eos # (Auto) 0.2 X10*3/uL (0.0-0.4) 12/11/20 13:58 Baso # (Auto) 0.0 X10*3/uL (0.0-0.2) 12/11/20 13:58 Abs Immat Gran (auto) 0.02 X10*3/uL (0.00-0.03) 12/11/20 13:58 Absolute Neuts (auto) 3.4 X10*3/uL (2.0-8.3) 12/11/20 13:58 Absolute Nucleated RBC 0.000 X10*3/uL (0.0-0.012) 12/11/20 13:58 Nucleated RBC % (auto) 0.0 /100WBC (0.0-0.2) 12/11/20 13:58 PT 14.8 SEC (10.8-13.0) H D 12/11/20 13:58 INR 1.2 (0.9-1.1) H 12/11/20 13:58 Sodium 135 mmol/L (135-145) 12/11/20 13:58 Potassium 4.0 mmol/l (3.3-5.1) 12/11/20 13:58 Chloride 99 mmol/L (96-108) 12/11/20 13:58 Carbon Dioxide 26 mmol/L (22-29) 12/11/20 13:58 Anion Gap 14 (12-20) 12/11/20 13:58 BUN 12 mg/dL (9-16) 12/11/20 13:58 Creatinine 0.97 mg/dL (0.5-1.4) 12/11/20 13:58 Estim Creat Clear Calc 44.5 12/11/20 13:58 Estimated GFR 57 12/11/20 13:58 Random Glucose 181 mg/dL (60-115) H 12/11/20 13:58 Calcium 8.6 mg/dL (8.4-10.2) D 12/11/20 13:58 Total Bilirubin 0.3 mg/dL (0.0-1.0) 12/11/20 13:58 AST 79 U/L (5-31) H 12/11/20 13:58 ALT 59 U/L (0-31) H 12/11/20 13:58 Alkaline Phosphatase 62 U/L (39-117) 12/11/20 13:58 Total Protein 7.3 g/dL (6.5-8.0) 12/11/20 13:58 Albumin 4.3 g/dL (3.5-5.0) 12/11/20 13:58 CA 19-9 Antigen 4855 U/mL (<34) H 11/28/20 12:04 Progress Note: A/P (1) Pancreatic carcinoma Status: Acute Assessment and plan: This is a pleasant 69-year-old lady who presents with a couple of months history of abdominal pain that recently worsened. CT scan of the abdomen revealed: New mass in the head, neck and body the pancreas measuring 4.5 x 6.5 cm worrisome for neoplasm. New bilateral pulmonary nodules. Upper abdominal varices. Large esophageal hernia or intrathoracic stomach. Diverticulosis of the colon. Probable small uterine fibroid. Concern was for pancreatic cancer. Tumor marker Ca 19/9 is :4524. Biopsy was done on 11/12. Pathology revealed: Positive for atypical mucinous neoplasm. Moderately cellular specimen consisting of sheets of mucinous epithelium with cytologic atypia characterized by loss of clarity an irregularly shaped nuclei with Dr. chromatin in irregular nuclear membrane. Differential diagnosis includes an adenocarcinoma, mucinous cystic neoplasm and intraductal papillary mucinous neoplasm. I will proceed with a PET scan for further evaluation. This was done on 12/03, and revealed: Mild FDG activity in the pancreatic mass involving the head and adjacent pancreatic body corresponding to the recently biopsied malignancy. Multiple predominantly subcentimeter pulmonary nodules are present throughout the lungs likely represent metastases. Most of these are too small to be characterized on the PET images but the largest shows FDG activity. No additional abnormality suspicious for metastatic or other malignant lesions are noted. Chronic left posterior parietal cerebral infarction Large hiatal hernia.. My plan was to proceed with systemic chemotherapy. She has been started on gemcitabine and Abraxane based regimen. PLAN: She is here for her 3rd chemotherapy treatment. So far she has been tolerating it well. The plan is to re-stage her with another CT scan. I will see her back in a a couple of week's time, Thanks, CC: Dr. Lancaster. - Time Spent With Patient Total time spent is greater than 50% in coordination of care (as documented) at patient's floor/unit and/or counseling patient: 25 - 35 minutes
[2021-02-14] MEDS: dexAMETHasone sod phosphate/NS 12 MG/50 ML PIGGYBACK 200 MG IV (11:43)
[2021-02-14 13:19] VITALS: BMI 19.1
--- NOTE | 2021-02-14 14:19 | MHC.HEMONC ---
Pt here for Cycle 3 day 1 of Abraxane/Gemzar IV. Lab draw performed by phlebotomy-specimen sent to lab.. #22 angio inserted in right hand without difficulty. 0.9% NS infusing. Lab results reviewed. Pre medicated with decadron 12mg IV and zofran 16mg IV. Abraxane and Gemzar IV given as ordered. Follow up appointments made and discharge instructions given in [place] language. Dr Cifuentes into see pt. Peripheral IV removed-no edema or redness at site. Discharged home with family member.
[2021-02-28 10:03] LABS: MANUAL DIFF FLAG NO
[2021-02-28 10:12] VITALS: BP 131/59; PULSE 68; RESP 18; TEMP 37; O2SAT 98; BMI 25.8
[2021-02-28 10:15] LABS: Basophils Percent Auto 0.5 % (0-2); Eosinophils Absolute Auto 0.7 X10*3/uL (0.0-0.4); Eosinophils Percent Auto 11.7 % (0-4); Hematocrit 36.9 % (37-47); Hemoglobin 11.1 g/dl (12.0-16.0); Imm Gran Abs Auto 0.05 X10*3/uL (0.00-0.03); Imm Gran Pct Auto 0.8 % (0.0-0.4); Lymphocytes Absolute Auto 0.9 X10*3/uL (1.2-4.9); Lymphocytes Percent Auto 14.8 % (20-40); Mean Corpuscular HGB Conc 30.1 g/dl (31.0-35.0); Mean Corpuscular Hemoglobin 28.2 pg (27.0-33.0); Mean Corpuscular Volume 93.7 fL (80-98); Mean Platelet Volume 10.2 fL (9.4-12.3); Monocytes Absolute Auto 0.6 X10*3/uL (0.1-1.2); Monocytes Percent Auto 9.9 % (2-11); Neutrophils Percent Auto 62.3 % (45-73); Platelet Count 145 X10*3/uL (160-400); Red Blood Count 3.94 X10*6/uL (4.20-5.50); Red Cell Distribution Width 16.3 % (11.0-16.0); White Blood Count 6.3 X10*3/uL (4.8-10.8)
[2021-02-28 10:38] LABS: Alanine Aminotransferase 39 U/L (0-31); Albumin Level 4.2 g/dL (3.5-5.0); Alkaline Phosphatase 70 U/L (39-117); Anion Gap 11 (12-20); Aspartate Amino Transferase 33 U/L (5-31); Bilirubin Total 0.4 mg/dL (0.0-1.0); Blood Urea Nitrogen 16 mg/dL (9-16); Calcium 9.1 mg/dL (8.4-10.2); Carbon Dioxide 29 mmol/L (22-29); Chloride 102 mmol/L (96-108); Creatinine Clr Calc Pharmacy 52.6; Estimated Glomerular Filt Rate > 60; Glucose Random 140 mg/dL (60-115); Potassium 4.7 mmol/L (3.3-5.1); Sodium 137 mmol/L (135-145); Total Protein 6.9 g/dL (6.5-8.0)
[2021-02-28] MEDS: ondansetron HCL/NS 16 MG/50 ML PIGGYBACK 200 MG IV (10:54)
[2021-02-28] MEDS: dexAMETHasone sod phosphate/NS 12 MG/50 ML PIGGYBACK 200 MG IV (11:23)
--- NOTE | 2021-02-28 15:57 | MHC.HEMONC ---
C3 DAY 15 GEMZAR/ABRAXANE well tolerated. No complaints at this time. VSS. Patient accompanied by son. Patient to return in 2 weeks for cycle 4. Labs reviewed.
[2021-03-13 11:30] LABS: MANUAL DIFF FLAG NO
[2021-03-13 11:57] LABS: Basophils Percent Auto 0.3 % (0-2); Eosinophils Absolute Auto 0.6 X10*3/uL (0.0-0.4); Eosinophils Percent Auto 10.6 % (0-4); Hematocrit 36.4 % (37-47); Hemoglobin 11.4 g/dl (12.0-16.0); Imm Gran Abs Auto 0.02 X10*3/uL (0.00-0.03); Imm Gran Pct Auto 0.3 % (0.0-0.4); Lymphocytes Absolute Auto 0.8 X10*3/uL (1.2-4.9); Mean Corpuscular HGB Conc 31.3 g/dl (31.0-35.0); Mean Corpuscular Volume 92.6 fL (80-98); Mean Platelet Volume 10.6 fL (9.4-12.3); Monocytes Absolute Auto 0.6 X10*3/uL (0.1-1.2); Monocytes Percent Auto 9.9 % (2-11); Neutrophils Absolute Auto 3.8 X10*3/uL (2.0-8.3); Neutrophils Percent Auto 64.9 % (45-73); Platelet Count 146 X10*3/uL (160-400); Red Blood Count 3.93 X10*6/uL (4.20-5.50); White Blood Count 5.8 X10*3/uL (4.8-10.8)
[2021-03-13 12:18] LABS: Alanine Aminotransferase 25 U/L (0-31); Albumin Level 4.1 g/dL (3.5-5.0); Alkaline Phosphatase 70 U/L (39-117); Anion Gap 9 (12-20); Aspartate Amino Transferase 26 U/L (5-31); Bilirubin Total 0.3 mg/dL (0.0-1.0); Blood Urea Nitrogen 11 mg/dL (9-16); Calcium 9.1 mg/dL (8.4-10.2); Carbon Dioxide 30 mmol/L (22-29); Chloride 105 mmol/L (96-108); Creatinine Clr Calc Pharmacy 56.8; Estimated Glomerular Filt Rate > 60; Glucose Random 155 mg/dL (60-115); Potassium 4.2 mmol/L (3.3-5.1); Sodium 140 mmol/L (135-145)
[2021-03-14 10:11] VITALS: BP 161/76; PULSE 73; RESP 18; TEMP 36.7; O2SAT 98; BMI 25.8
[2021-03-14] MEDS: ondansetron HCL/NS 16 MG/50 ML PIGGYBACK 200 MG IV (10:41)
[2021-03-14] MEDS: dexAMETHasone sod phosphate/NS 12 MG/50 ML PIGGYBACK 200 MG IV (11:03)
--- NOTE | 2021-03-14 15:10 | MHC.HEMONC ---
Pt here for Cycle 4 day 1 of Paclitaxel and Gemcitabine. #22 angio inserted in right hand after 2 attempts. 0.9% NS infusing. Labs drawn yesterday 03/13/21 reviewed. Pre medicated with Decadron 12 mg orally and zofran 16mg IV. Pt states she feels good today, states will call manufacture specialist for follow up appointment for pacemaker today. CT scans ordered by Dr Cifuentes require PA. Dr Cifuentes notified. Paclitaxel and Gemcitabine IV given as ordered. Peripheral IV flushed with NS and removed. No edema or redness at site. Follow up appointments made, post chemo care education and discharge instructions given. Discharged home
[2021-03-27 11:22] LABS: MANUAL DIFF FLAG NO
[2021-03-27 11:39] LABS: Basophils Percent Auto 0.3 % (0-2); Eosinophils Absolute Auto 0.7 X10*3/uL (0.0-0.4); Eosinophils Percent Auto 10.6 % (0-4); Hematocrit 37.2 % (37-47); Hemoglobin 11.4 g/dl (12.0-16.0); Imm Gran Abs Auto 0.03 X10*3/uL (0.00-0.03); Imm Gran Pct Auto 0.5 % (0.0-0.4); Lymphocytes Percent Auto 15.5 % (20-40); Mean Corpuscular HGB Conc 30.6 g/dl (31.0-35.0); Mean Corpuscular Hemoglobin 28.5 pg (27.0-33.0); Mean Platelet Volume 10.3 fL (9.4-12.3); Monocytes Absolute Auto 0.7 X10*3/uL (0.1-1.2); Neutrophils Absolute Auto 4.1 X10*3/uL (2.0-8.3); Neutrophils Percent Auto 63.1 % (45-73); Platelet Count 152 X10*3/uL (160-400); Red Cell Distribution Width 15.8 % (11.0-16.0); White Blood Count 6.5 X10*3/uL (4.8-10.8)
[2021-03-27 12:01] LABS: Alanine Aminotransferase 28 U/L (0-31); Albumin Level 4.2 g/dL (3.5-5.0); Alkaline Phosphatase 66 U/L (39-117); Anion Gap 12 (12-20); Aspartate Amino Transferase 28 U/L (5-31); Bilirubin Total 0.5 mg/dL (0.0-1.0); Blood Urea Nitrogen 17 mg/dL (9-16); Calcium 9.2 mg/dL (8.4-10.2); Carbon Dioxide 28 mmol/L (22-29); Chloride 103 mmol/L (96-108); Creatinine Clr Calc Pharmacy 51.9; Estimated Glomerular Filt Rate > 60; Glucose Random 155 mg/dL (60-115); Potassium 4.9 mmol/L (3.3-5.1); Sodium 138 mmol/L (135-145)
[2021-03-28 09:58] VITALS: BMI 25.5
[2021-03-28 09:59] VITALS: BP 150/67; PULSE 78; RESP 18; TEMP 36.5; O2SAT 98
[2021-03-28] MEDS: ondansetron HCL/NS 16 MG/50 ML PIGGYBACK 200 MG IV (10:23)
[2021-03-28] MEDS: dexAMETHasone sod phosphate/NS 12 MG/50 ML PIGGYBACK 200 MG IV (10:54)
--- NOTE | 2021-03-28 16:42 | MHC.HEMONC ---
Cycle 4 day 15 Gemzar/Abraxane well tolerated. No complaints at this time. VSS. Scheduled CT scan for 04-04-. Patient will return 04-11 for chemotherapy and exam with Dr. Cifuentes. Labs wnl. Retail Account Manager used for assessment, patient unsure of current medication list. Patient will bring list to next appt.
[2021-04-10 11:17] LABS: MANUAL DIFF FLAG NO
[2021-04-10 11:32] LABS: Basophils Percent Auto 0.2 % (0-2); Eosinophils Absolute Auto 0.6 X10*3/uL (0.0-0.4); Eosinophils Percent Auto 11.3 % (0-4); Hematocrit 35.1 % (37-47); Hemoglobin 10.9 g/dl (12.0-16.0); Imm Gran Abs Auto 0.02 X10*3/uL (0.00-0.03); Imm Gran Pct Auto 0.4 % (0.0-0.4); Lymphocytes Percent Auto 20.7 % (20-40); Mean Corpuscular HGB Conc 31.1 g/dl (31.0-35.0); Mean Corpuscular Hemoglobin 29.3 pg (27.0-33.0); Mean Corpuscular Volume 94.4 fL (80-98); Mean Platelet Volume 9.9 fL (9.4-12.3); Monocytes Absolute Auto 0.6 X10*3/uL (0.1-1.2); Monocytes Percent Auto 11.7 % (2-11); Neutrophils Absolute Auto 2.7 X10*3/uL (2.0-8.3); Neutrophils Percent Auto 55.7 % (45-73); Platelet Count 143 X10*3/uL (160-400); Red Blood Count 3.72 X10*6/uL (4.20-5.50); Red Cell Distribution Width 15.3 % (11.0-16.0); White Blood Count 4.9 X10*3/uL (4.8-10.8)
[2021-04-10 12:12] LABS: Alanine Aminotransferase 32 U/L (0-31); Albumin Level 4.1 g/dL (3.5-5.0); Alkaline Phosphatase 59 U/L (39-117); Anion Gap 10 (12-20); Aspartate Amino Transferase 30 U/L (5-31); Bilirubin Total 0.4 mg/dL (0.0-1.0); Blood Urea Nitrogen 16 mg/dL (9-16); Calcium 9.4 mg/dL (8.4-10.2); Carbon Dioxide 30 mmol/L (22-29); Chloride 104 mmol/L (96-108); Creatinine Clr Calc Pharmacy 52.3; Estimated Glomerular Filt Rate > 60; Glucose Random 125 mg/dL (60-115); Potassium 4.7 mmol/L (3.3-5.1); Sodium 139 mmol/L (135-145); Total Protein 6.6 g/dL (6.5-8.0)
[2021-04-11 09:41] VITALS: BP 148/70; PULSE 72; RESP 18; TEMP 36.7; O2SAT 98; BMI 25.5
[2021-04-11] MEDS: ondansetron HCL/NS 16 MG/50 ML PIGGYBACK 200 MG IV (10:27)
[2021-04-11] MEDS: dexAMETHasone sod phosphate/NS 12 MG/50 ML PIGGYBACK 200 MG IV (10:44)
--- NOTE | 2021-04-11 10:53 | PM.HEMONCPN ---
Medical Summary - Medical Summary Date of Service: 04/11/21 Chief complaint: Follow-up for: Pancreatic carcinoma. Medical Summary: DIAGNOSIS: Concern is for pancreatic cancer. CURRENT THERAPY: Here for gemcitabine Abraxane., cycle 4. Interval History Interval history: This is a pleasant 70-year-old lady, here for a follow-up visit. She tells me she has been feeling quite well. Better actually. After she receives the chemotherapy the next couple days she has some nausea and retching but no vomiting. The anti emetic helps. A pain comes and goes. The pain med helps. Denies much fatigability. She is actually quite independent. Denies any fever nor chills. No headache no dizziness. She denies abdominal pain. Sometimes she has nausea after treatment. She takes the anti emetic. No heartburn indigestion. After the treatment sometimes she has diarrhea. That is self-limited. Sometimes she gets constipated. No blood in the stools. Appetite is fair. Her weight is down. She moved back into her own home. The other day she cooked a meal for her son. She is in excellent spirits. Rest of the review of systems is unremarkable. Previous history: She was seen in house. She presented to the hospital with complaints of abdominal pain. She complained of pain all over , on her abdomen, back, chest, legs. She reported that the abdominal pain had been going on for 2 months but worsened over the past 3 days. The pain is generalized abdominal pain, 8/10, intermittent, nonradiating, associated with nausea and vomiting. She also had occasional chills with no fever. She reported the pain to be just generalized discomfort. When asked about weight loss she reports about 1-2 lb of weight loss but not more. She also complained of years of shortness of breath with no change. She denied urinary symptoms and no lower extremity edema. Patient also complained of bloating, and low appetite. Her temp was 98.6?, pulse rate of 69, respiratory rate of 19, and oxygen saturation of 95% on room air. Labs: significant for PT of 27.7 INR of 2.3, sodium of 130, BUN of 11 with creatinine of 0.77, troponin 38 trended down to 37, BNP of 259, CT abdomen showed: New mass in the head neck and body of the pancreas measuring 4.5 x 6.5 cm worrisome for neoplasm. New bilateral pulmonary nodules. Upper abdominal varices. Large esophageal hernia, or intrathoracic stomach. Diverticulosis of the colon. Probable small uterine fibroid. Hospital course: The patient was evaluated for abdominal pain. I recommended, Biopsy of the pancreas. Discussed with IR who recommended holding both aspirin and warfarin for 3 days prior to procedure which was to be scheduled for next Wednesday. After discussing with the patient, she preferred to come back at the time of the biopsy. Her INR of 1.6 at the day of discharge. She was noted to have hyponatremia which seems to be chronic around 130-131. BNP was noted to be mildly elevated around 200 which was the baseline for her, looking back at her previous readings. Not in acute CHF exacerbation. les. Upper abdominal varices. Large esophageal hernia Past medical history: Diabetes, COPD, CVA, hypertension. Review of Systems - Constitutional Reports no additional constitutional complaints, Reports lack of energy, Reports weight loss - Eyes Reports no additional eye complaints - ENT Reports no additional ear, nose, mouth, and throat complaints - Cardiovascular Reports no additional cardiovascular complaints - Respiratory Reports no additional respiratory complaints - Gastrointestinal Reports no additional gastrointestinal complaints - Genitourinary Reports no additional female genitourinary complaints - Musculoskeletal Reports no additional musculoskeletal complaints - Integumentary/Breasts Skin/Breast: Reports no additional skin complaints - Neurologic Reports no additional neurologic complaints, Reports weakness - Psychiatric Reports no additional psychiatric complaints - Endocrine Reports no additional endocrine complaints - Hematologic/Lymphatic Reports no additional hematologic/lymphatic complaints - Allergic/Immunologic Reports no additional allergic/immunologic complaints [facility] Medical History: Medical History (Last Updated 02/27/21 @ 18:30 by Malika Mayer MD) Anxiety and depression Biventricular ICD (implantable cardioverter-defibrillator) in place Cardiomyopathy Congestive heart failure COPD (chronic obstructive pulmonary disease) Coronary artery disease Current use of anticoagulant therapy CVA (cerebral vascular accident) Diverticulitis Esophageal hernia GERD (gastroesophageal reflux disease) History of renal calculi HTN (hypertension) Hypercholesterolemia Hyponatremia Osteopenia Type 2 diabetes mellitus with hyperglycemia Umbilical hernia Functional capacity: uses cane/walker Patient : No Family History: Family History (Last Reviewed 01/17/21 @ 10:55 by Rufina Go RN) Father Medical history unknown Mother Diabetes Hypertension Surgical History: Surgical History (Last Reviewed 01/17/21 @ 10:56 by Rufina Go RN) History of hemicolectomy History of incisional hernia repair History of pacemaker Social History: Social History (Last Reviewed 12/27/20 @ 13:33 by Glenroy Jerez) Living Situation History: Household Members: Family Housing: House Are you a primary medicare contact specialist to a significant other at home: No Do you presently have visiting nurse or other home services: No Alcohol History: Alcohol intake: never Alcohol History Details: Alcohol intake frequency: does not drink Tobacco History: Smoking Status: Never smoker Substance Use History: Use of substances other than those prescribed or required for medical reasons: No Domestic Abuse History: Have you been hit, kicked, punched, or otherwise hurt by someone within the past year? If so, by whom?: No Do you feel safe in your current relationship?: No Healthcare Practices: [facility] Healthcare Practices: Scientology/ Mormonism Nutrition Assessment: Recently lost weight without trying: Yes How much weight loss: 24-33 pounds Eating poorly because of decreased appetite: Yes Nutrition screen score: 6 Nutrition Risks: Acute nausea or vomiting Patient : No : No Poor oral hygiene: No Occupation Assessmet: service: No Current occupational status: retired Smoking status: Never smoker Oncology Screenings - ECOG Performance Status ECOG Performance Status: 1 Home Medications and Allergies Current Medications: Current Medications Generic Name Dose Route Start Last Admin Trade Name Emely PRN Reason Stop Dose Admin Dexamethasone Sodium Phosphate 12 mg in 50 mls @ 200 mls/hr 04/11/21 00:00 04/11/21 10:44 Decadron IV 04/11/21 23:59 200 mls/hr ONCE ERWIN Administration Ondansetron HCl 16 mg in 50 mls @ 200 mls/hr 04/11/21 00:00 04/11/21 10:42 Zofran IV 04/11/21 23:59 Infused ONCE ERWIN Infusion Paclitaxel/Albumin ( 40 mls @ 80 mls/hr 04/11/21 00:00 Nanoparticle) 200 mg/ IV IV 04/11/21 23:59 Miscellaneous Supplies ONCE ERWIN Gemcitabine HCl 1,600 mg/ 292.08 mls @ 584.21 mls/hr 04/11/21 10:45 Sodium Chloride IV 04/11/21 23:59 ONCE ERWIN Home Medications Medication Instructions Recorded Confirmed Type calcium carbonate-vitamin D3 1 tab PO BID 10/30/20 03/27/21 History carbamazepine 200 mg PO DAILY 10/30/20 03/27/21 History omeprazole 40 mg PO DAILY 10/30/20 03/27/21 History budesonide-formoterol HFA 160 2 puff INHALATION BID 11/19/20 03/27/21 History mcg-4.5 mcg/actuation aerosol inhaler ondansetron HCl [Zofran] 4 mg PO Q8H 12/17/20 03/27/21 History ipratropium 0.5 mg-albuterol 3 mg 3 ml INHALATION QID 02/14/21 03/27/21 History (2.5 mg base)/3 mL nebulization soln multivitamin 1 tab PO DAILY 02/14/21 03/27/21 History buyckuiswj-dwpcveotiziyo-fppzmiwj 1 tab PO Q8H PRN 02/21/21 03/27/21 History 50 mg-325 mg-40 mg tablet docusate sodium 100 mg capsule 100 mg PO BID 02/21/21 03/27/21 History lancets 30 gauge #100 ea 02/21/21 03/27/21 History metformin 500 mg tablet 500 mg PO DAILY 02/21/21 03/27/21 History metformin 500 mg tablet,extended 500 mg PO BID 02/21/21 03/27/21 History release 24 hr clotrimazole-betamethasone 1 1 appl TOPICAL BID 02/26/21 03/27/21 History %-0.05 % topical cream blood sugar diagnostic #10 ea 03/13/21 03/27/21 History diphenhydramine HCl 25 mg capsule 25 mg PO DIRECTED 03/13/21 03/27/21 History omeprazole 20 mg capsule,delayed 20 mg PO DAILY 03/21/21 03/27/21 History release Allergies Allergy/AdvReac Type Severity Reaction Status Date / Time No Known Allergies Allergy Verified 03/06/21 10:51 Exam Vital signs: Vital Signs Temp 98.1 F 04/11/21 09:41 Pulse 72 04/11/21 09:41 Resp 18 04/11/21 09:41 BP 148/70 H 04/11/21 09:41 Pulse Ox 98 04/11/21 09:41 Intake & Output 04/10/21 04/11/21 04/11/21 18:59 06:59 18:59 Intake Total 50 / 50 Balance 50 / 50 Intake: Intake, IV Amount 50 / 50 ondansetron HCL/NS 16 mg In 50 50 / 50 ml @ 200 mls/hr IV ONCE [facility] Rx# :[id number] Other: Weight 60 kg [place] Weight in Grams 00692 Weight 60 kg Body Mass Index 25.5 - Constitutional Present: no acute distress, mild distress - Routine HEENT Exam Head: Present: normal inspection Eye: Present: normal appearance ENT: Present: mucous membranes moist - Routine Neck Exam Present: full ROM - Routine Respiratory Exam Present: CTAB - Routine Cardiovascular Exam Cardiovascular: Present: RRR, S1, S2 - Routine Abdominal Exam Present: soft, tenderness. Absent: nontender - Routine Rectal Exam Patient deferred: digital exam - Routine Extremities Exam Present: nontender - Routine Back/Spine/Pelvis Exam Back/Spine: Present: full ROM - Routine Skin Exam Present: intact - Routine Neurological Exam Present: alert, oriented X3 - Routine Psychiatric Exam Present: normal affect Data - Labs CBC & Chem 7: 04/10/21 11:16 04/10/21 11:16 Labs: 11/28/20 12:04 CA 19-9 [Carbohydrate Antigen 19-9] Routine Complete Blood Count Auto Diff Routine Comprehensive Met. Panel Routine PT with INR [Prothrombin Time INR] Routine 12/02/20 00:00 Acetaminophen [Tylenol] 650 mg PO ONCE dexAMETHasone [Decadron] 12 mg PO ONCE ondansetron HCL/NS [Zofran] 16 mg in 50 ml IV ONCE 12/11/20 13:58 Complete Blood Count Auto Diff Routine Comprehensive Met. Panel Routine PT with INR [Prothrombin Time INR] Routine 12/12/20 00:00 Acetaminophen [Tylenol] 650 mg PO ONCE dexAMETHasone [Decadron] 12 mg PO ONCE ondansetron HCL/NS [Zofran] 16 mg in 50 ml IV ONCE Laboratory Last Values WBC 4.8 X10*3/uL (4.8-10.8) 12/11/20 13:58 RBC 4.57 X10*6/uL (4.20-5.50) 12/11/20 13:58 Hgb 13.1 g/dl (12.0-16.0) 12/11/20 13:58 Hct 41.0 % (37-47) 12/11/20 13:58 MCV 89.7 fL (80-98) 12/11/20 13:58 MCH 28.7 pg (27.0-33.0) 12/11/20 13:58 MCHC 32.0 g/dl (31.0-35.0) 12/11/20 13:58 RDW 12.6 % (11.0-16.0) 12/11/20 13:58 Plt Count 144 X10*3/uL (160-400) L 12/11/20 13:58 MPV 10.3 fL (9.4-12.3) 12/11/20 13:58 Immature Gran % (Auto) 0.4 % (0.0-0.4) 12/11/20 13:58 Neut % (Auto) 69.7 % (45-73) 12/11/20 13:58 Lymph % (Auto) 16.5 % (20-40) L 12/11/20 13:58 Sully % (Auto) 9.5 % (2-11) 12/11/20 13:58 Eos % (Auto) 3.5 % (0-4) 12/11/20 13:58 Baso % (Auto) 0.4 % (0-2) 12/11/20 13:58 Lymph # (Auto) 0.8 X10*3/uL (1.2-4.9) L 12/11/20 13:58 Sully # (Auto) 0.5 X10*3/uL (0.1-1.2) 12/11/20 13:58 Eos # (Auto) 0.2 X10*3/uL (0.0-0.4) 12/11/20 13:58 Baso # (Auto) 0.0 X10*3/uL (0.0-0.2) 12/11/20 13:58 Abs Immat Gran (auto) 0.02 X10*3/uL (0.00-0.03) 12/11/20 13:58 Absolute Neuts (auto) 3.4 X10*3/uL (2.0-8.3) 12/11/20 13:58 Absolute Nucleated RBC 0.000 X10*3/uL (0.0-0.012) 12/11/20 13:58 Nucleated RBC % (auto) 0.0 /100WBC (0.0-0.2) 12/11/20 13:58 PT 14.8 SEC (10.8-13.0) H D 12/11/20 13:58 INR 1.2 (0.9-1.1) H 12/11/20 13:58 Sodium 135 mmol/L (135-145) 12/11/20 13:58 Potassium 4.0 mmol/l (3.3-5.1) 12/11/20 13:58 Chloride 99 mmol/L (96-108) 12/11/20 13:58 Carbon Dioxide 26 mmol/L (22-29) 12/11/20 13:58 Anion Gap 14 (12-20) 12/11/20 13:58 BUN 12 mg/dL (9-16) 12/11/20 13:58 Creatinine 0.97 mg/dL (0.5-1.4) 12/11/20 13:58 Estim Creat Clear Calc 44.5 12/11/20 13:58 Estimated GFR 57 12/11/20 13:58 Random Glucose 181 mg/dL (60-115) H 12/11/20 13:58 Calcium 8.6 mg/dL (8.4-10.2) D 12/11/20 13:58 Total Bilirubin 0.3 mg/dL (0.0-1.0) 12/11/20 13:58 AST 79 U/L (5-31) H 12/11/20 13:58 ALT 59 U/L (0-31) H 12/11/20 13:58 Alkaline Phosphatase 62 U/L (39-117) 12/11/20 13:58 Total Protein 7.3 g/dL (6.5-8.0) 12/11/20 13:58 Albumin 4.3 g/dL (3.5-5.0) 12/11/20 13:58 CA 19-9 Antigen 4855 U/mL (<34) H 11/28/20 12:04 Progress Note: A/P (1) Pancreatic carcinoma Status: Acute Assessment and plan: This is a pleasant 70 year-old lady who presents with a couple of months history of abdominal pain that recently worsened. CT scan of the abdomen revealed: New mass in the head, neck and body the pancreas measuring 4.5 x 6.5 cm worrisome for neoplasm. New bilateral pulmonary nodules. Upper abdominal varices. Large esophageal hernia or intrathoracic stomach. Diverticulosis of the colon. Probable small uterine fibroid. Concern was for pancreatic cancer. Tumor marker Ca 19/9 is :4524. Biopsy was done on 11/12. Pathology revealed: Positive for atypical mucinous neoplasm. Moderately cellular specimen consisting of sheets of mucinous epithelium with cytologic atypia characterized by loss of clarity an irregularly shaped nuclei with Dr. chromatin in irregular nuclear membrane. Differential diagnosis includes an adenocarcinoma, mucinous cystic neoplasm and intraductal papillary mucinous neoplasm. I will proceed with a PET scan for further evaluation. This was done on 12/03, and revealed: Mild FDG activity in the pancreatic mass involving the head and adjacent pancreatic body corresponding to the recently biopsied malignancy. Multiple predominantly subcentimeter pulmonary nodules are present throughout the lungs likely represent metastases. Most of these are too small to be characterized on the PET images but the largest shows FDG activity. No additional abnormality suspicious for metastatic or other malignant lesions are noted. Chronic left posterior parietal cerebral infarction Large hiatal hernia.. My plan was to proceed with systemic chemotherapy. She has been started on gemcitabine and Abraxane based regimen. She had 3 cycles. Repeat imaging from 04/04: CT abdomen: No appreciable change in the mass in the body of the pancreas from October [address] chest: Multiple bilateral pulmonary nodules not appreciably changed from previous PET/CT scan November 2020. Enlarged heart. Large esophageal hernia or intrathoracic stomach. I shared the above results with her via dependency director. Mention that even though there has not been much decrease in size of the tumor things do appear stable. Stable disease is considered a response to treatment. Hopefully things will decrease with the continued chemotherapy. She has been tolerating it well. PLAN: She is here for her 4th chemotherapy treatment. Will give her 3 more treatments and then re-stage her with another CT scan. I will see her back in a a couple of week's time, All her and her son's questions were answered to their satisfaction. Thanks, CC: Dr. Lancaster. - Time Spent With Patient Total time spent is greater than 50% in coordination of care (as documented) at patient's floor/unit and/or counseling patient: 25 - 35 minutes
--- NOTE | 2021-04-11 13:29 | MHC.HEMONC ---
Pt here for Cycle 5 Day 1 Abraxane and Gemzar IV. Blood work drawn yesterday 04/10/21 reviewed. Peripheral IV, #22 angio inserted in right hand, blood return noted. 0.9% NS infusing. Pt states she has some nausea at times, some diarrhea and constipation and fatigue. Dr Cifuentes into see pt. Pt reminded to bring in medication list from home. Family with pt also reminded. Pre medicated with Zofran 16mg IV and Decadron 12mg IV. Abraxane and Gemzar IV given as ordered. Tolerated well. Peripheral IV removed, no edema or redness at site. Follow up appointment given with post chemo discharge instructions. Discharged home.
[2021-04-16 11:27] LABS: Carbohydrate Antigen 19-9 3854 U/mL (<34)
[2021-04-24 11:14] LABS: MANUAL DIFF FLAG NO
[2021-04-24 11:16] LABS: Basophils Percent Auto 0.3 % (0-2); Eosinophils Absolute Auto 0.8 X10*3/uL (0.0-0.4); Hematocrit 36.3 % (37-47); Hemoglobin 11.3 g/dl (12.0-16.0); Imm Gran Abs Auto 0.02 X10*3/uL (0.00-0.03); Imm Gran Pct Auto 0.3 % (0.0-0.4); Lymphocytes Absolute Auto 1.3 X10*3/uL (1.2-4.9); Lymphocytes Percent Auto 19.6 % (20-40); Mean Corpuscular HGB Conc 31.1 g/dl (31.0-35.0); Mean Corpuscular Volume 93.3 fL (80-98); Mean Platelet Volume 10.3 fL (9.4-12.3); Monocytes Absolute Auto 0.7 X10*3/uL (0.1-1.2); Monocytes Percent Auto 10.7 % (2-11); Neutrophils Absolute Auto 3.6 X10*3/uL (2.0-8.3); Neutrophils Percent Auto 56.1 % (45-73); Platelet Count 134 X10*3/uL (160-400); Red Blood Count 3.89 X10*6/uL (4.20-5.50); Red Cell Distribution Width 14.9 % (11.0-16.0); White Blood Count 6.4 X10*3/uL (4.8-10.8)
[2021-04-24 12:03] LABS: Alanine Aminotransferase 32 U/L (0-31); Albumin Level 4.1 g/dL (3.5-5.0); Alkaline Phosphatase 60 U/L (39-117); Anion Gap 13 (12-20); Aspartate Amino Transferase 33 U/L (5-31); Bilirubin Total 0.4 mg/dL (0.0-1.0); Blood Urea Nitrogen 26 mg/dL (9-16); Calcium 9.4 mg/dL (8.4-10.2); Carbon Dioxide 28 mmol/L (22-29); Chloride 102 mmol/L (96-108); Creatinine Clr Calc Pharmacy 47.1; Estimated Glomerular Filt Rate > 60; Glucose Random 121 mg/dL (60-115); Potassium 5.5 mmol/L (3.3-5.1); Sodium 137 mmol/L (135-145); Total Protein 6.8 g/dL (6.5-8.0)
[2021-04-25 09:51] VITALS: BP 155/71; PULSE 80; RESP 18; TEMP 36.9; O2SAT 97; BMI 25.6
[2021-04-25] MEDS: ondansetron HCL/NS 16 MG/50 ML PIGGYBACK 200 MG IV (10:36)
[2021-04-25] MEDS: dexAMETHasone sod phosphate/NS 12 MG/50 ML PIGGYBACK 200 MG IV (11:00)
--- NOTE | 2021-04-25 13:03 | MHC.HEMONC ---
C5 DAY 15 Gemzar/Abraxane well tolerated. Patient accompanied by son. VSS. Patient stated after last treatment cycle she felt very weak for several days with limited po intake. Patient instructed to call office if she feels similar as we will arrange labs and possible hydration if needed. Patient and son verbalizes understanding. Dr. Cifuentes aware of elevated potassium of 5.5.
[2021-05-08 10:50] LABS: MANUAL DIFF FLAG NO
[2021-05-08 11:14] LABS: Basophils Percent Auto 0.2 % (0-2); Eosinophils Absolute Auto 0.6 X10*3/uL (0.0-0.4); Eosinophils Percent Auto 12.6 % (0-4); Hemoglobin 11.3 g/dl (12.0-16.0); Imm Gran Abs Auto 0.02 X10*3/uL (0.00-0.03); Imm Gran Pct Auto 0.4 % (0.0-0.4); Lymphocytes Absolute Auto 0.8 X10*3/uL (1.2-4.9); Lymphocytes Percent Auto 17.4 % (20-40); Mean Corpuscular HGB Conc 31.4 g/dl (31.0-35.0); Mean Corpuscular Hemoglobin 29.2 pg (27.0-33.0); Mean Platelet Volume 10.6 fL (9.4-12.3); Monocytes Absolute Auto 0.4 X10*3/uL (0.1-1.2); Monocytes Percent Auto 9.3 % (2-11); Neutrophils Absolute Auto 2.8 X10*3/uL (2.0-8.3); Neutrophils Percent Auto 60.1 % (45-73); Platelet Count 112 X10*3/uL (160-400); Red Blood Count 3.87 X10*6/uL (4.20-5.50); Red Cell Distribution Width 14.7 % (11.0-16.0); White Blood Count 4.6 X10*3/uL (4.8-10.8)
[2021-05-08 11:46] LABS: Alanine Aminotransferase 23 U/L (0-31); Albumin Level 4.1 g/dL (3.5-5.0); Alkaline Phosphatase 63 U/L (39-117); Anion Gap 12 (12-20); Aspartate Amino Transferase 24 U/L (5-31); Bilirubin Total 0.4 mg/dL (0.0-1.0); Blood Urea Nitrogen 15 mg/dL (9-16); Calcium 9.3 mg/dL (8.4-10.2); Carbon Dioxide 28 mmol/L (22-29); Chloride 106 mmol/L (96-108); Creatinine Clr Calc Pharmacy 51.8; Estimated Glomerular Filt Rate > 60; Glucose Random 121 mg/dL (60-115); Potassium 4.6 mmol/L (3.3-5.1); Sodium 141 mmol/L (135-145); Total Protein 6.8 g/dL (6.5-8.0)
[2021-05-09 10:06] VITALS: BP 143/69; PULSE 63; RESP 18; TEMP 36.5; O2SAT 98; BMI 25.7
[2021-05-09] MEDS: ondansetron HCL/NS 16 MG/50 ML PIGGYBACK 200 MG IV (10:26)
[2021-05-09] MEDS: dexAMETHasone sod phosphate/NS 12 MG/50 ML PIGGYBACK 200 MG IV (10:45)
--- NOTE | 2021-05-09 12:42 | PM.HEMONCPN ---
Medical Summary - Medical Summary Date of Service: 05/09/21 Chief complaint: Follow-up for: Pancreatic cancer. Medical Summary: DIAGNOSIS: Concern is for pancreatic cancer. CURRENT THERAPY: Here for gemcitabine Abraxane., cycle 5. Interval History Interval history: This is a pleasant 70-year-old lady, here for a follow-up visit. She tells me she has been feeling quite well. Overall she is much better. After she receives the chemotherapy the next couple days she has some nausea and retching but no vomiting. The anti emetic helps. A pain comes and goes. It is less now. The pain med helps. She gets intermittent diarrhea after the treatment. No gross blood in the stools. Appetite is fair. Her weight is down. Denies much fatigability. She is actually quite independent. Denies any fever nor chills. No headache no dizziness. She denies any chest pain or trouble breathing. She is in excellent spirits. Rest of the review of systems is unremarkable. Previous history: She was seen in house. She presented to the hospital with complaints of abdominal pain. She complained of pain all over , on her abdomen, back, chest, legs. She reported that the abdominal pain had been going on for 2 months but worsened over the past 3 days. The pain is generalized abdominal pain, 8/10, intermittent, nonradiating, associated with nausea and vomiting. She also had occasional chills with no fever. She reported the pain to be just generalized discomfort. When asked about weight loss she reports about 1-2 lb of weight loss but not more. She also complained of years of shortness of breath with no change. She denied urinary symptoms and no lower extremity edema. Patient also complained of bloating, and low appetite. Her temp was 98.6?, pulse rate of 69, respiratory rate of 19, and oxygen saturation of 95% on room air. Labs: significant for PT of 27.7 INR of 2.3, sodium of 130, BUN of 11 with creatinine of 0.77, troponin 38 trended down to 37, BNP of 259, CT abdomen showed: New mass in the head neck and body of the pancreas measuring 4.5 x 6.5 cm worrisome for neoplasm. New bilateral pulmonary nodules. Upper abdominal varices. Large esophageal hernia, or intrathoracic stomach. Diverticulosis of the colon. Probable small uterine fibroid. Hospital course: The patient was evaluated for abdominal pain. I recommended, Biopsy of the pancreas. Discussed with IR who recommended holding both aspirin and warfarin for 3 days prior to procedure which was to be scheduled for next Wednesday. After discussing with the patient, she preferred to come back at the time of the biopsy. Her INR of 1.6 at the day of discharge. She was noted to have hyponatremia which seems to be chronic around 130-131. BNP was noted to be mildly elevated around 200 which was the baseline for her, looking back at her previous readings. Not in acute CHF exacerbation. les. Upper abdominal varices. Large esophageal hernia Past medical history: Diabetes, COPD, CVA, hypertension. Review of Systems - Constitutional Reports no additional constitutional complaints, Denies lack of energy - Eyes Reports no additional eye complaints, Denies loss of vision - ENT Reports no additional ear, nose, mouth, and throat complaints - Cardiovascular Reports no additional cardiovascular complaints, Denies excessive sweating - Respiratory Reports no additional respiratory complaints - Gastrointestinal Reports no additional gastrointestinal complaints - Genitourinary Reports no additional female genitourinary complaints - Musculoskeletal Reports no additional musculoskeletal complaints - Integumentary/Breasts Skin/Breast: Reports no additional skin complaints - Neurologic Reports no additional neurologic complaints, Reports weakness - Psychiatric Reports no additional psychiatric complaints - Endocrine Reports no additional endocrine complaints - Hematologic/Lymphatic Reports no additional hematologic/lymphatic complaints - Allergic/Immunologic Reports no additional allergic/immunologic complaints [facility] Medical History: Medical History (Last Updated 04/15/21 @ 11:15 by Hieu Eddy MD) Anxiety and depression Biventricular ICD (implantable cardioverter-defibrillator) in place Cardiomyopathy Congestive heart failure COPD (chronic obstructive pulmonary disease) Coronary artery disease Current use of anticoagulant therapy CVA (cerebral vascular accident) Diverticulitis Esophageal hernia GERD (gastroesophageal reflux disease) History of renal calculi HTN (hypertension) Hypercholesterolemia Hyponatremia Osteopenia Type 2 diabetes mellitus with hyperglycemia Umbilical hernia Functional capacity: uses cane/walker Patient : No Family History: Family History (Last Reviewed 01/17/21 @ 10:55 by Rufina Go RN) Father Medical history unknown Mother Diabetes Hypertension Surgical History: Surgical History (Last Reviewed 01/17/21 @ 10:56 by Rufina Go RN) History of hemicolectomy History of incisional hernia repair History of pacemaker Social History: Social History (Last Reviewed 12/27/20 @ 13:33 by Glenroy Faust Living Situation History: Household Members: Family Housing: House Are you a primary healthcare sales representative to a significant other at home: No Do you presently have visiting nurse or other home services: No Alcohol History: Alcohol intake: never Alcohol History Details: Alcohol intake frequency: does not drink Substance Use History: Use of substances other than those prescribed or required for medical reasons: No Domestic Abuse History: Have you been hit, kicked, punched, or otherwise hurt by someone within the past year? If so, by whom?: No Do you feel safe in your current relationship?: No Healthcare Practices: Jehovah'S Witness Healthcare Practices: Buddhism/ Gnosticist Nutrition Assessment: Recently lost weight without trying: Yes How much weight loss: 24-33 pounds Eating poorly because of decreased appetite: Yes Nutrition screen score: 6 Nutrition Risks: Acute nausea or vomiting Patient : No : No Poor oral hygiene: No Occupation Assessmet: service: No Current occupational status: retired Oncology Screenings - ECOG Performance Status ECOG Performance Status: 0 Home Medications and Allergies Current Medications: Current Medications Generic Name Dose Route Start Last Admin Trade Name Freq PRN Reason Stop Dose Admin Dexamethasone Sodium Phosphate 12 mg in 50 mls @ 200 mls/hr 05/09/21 00:00 05/09/21 11:00 Decadron IV 05/09/21 23:59 Infused ONCE ERWIN Infusion Ondansetron HCl 16 mg in 50 mls @ 200 mls/hr 05/09/21 00:00 05/09/21 10:41 Zofran IV 05/09/21 23:59 Infused ONCE ERWIN Infusion Paclitaxel/Albumin ( 40 mls @ 80 mls/hr 05/09/21 00:00 05/09/21 11:42 Nanoparticle) 200 mg/ IV IV 05/09/21 23:59 Infused Miscellaneous Supplies ONCE ERWIN Infusion Gemcitabine HCl 1,600 mg/ 292.08 mls @ 584.21 mls/hr 05/09/21 10:15 05/09/21 11:58 Sodium Chloride IV 584.21 mls/hr ONCE ERWIN Administration Home Medications Medication Instructions Recorded Confirmed Type calcium carbonate-vitamin D3 1 tab PO BID 10/30/20 05/09/21 History carbamazepine 200 mg PO DAILY 10/30/20 05/09/21 History budesonide-formoterol HFA 160 2 puff INHALATION BID 11/19/20 05/09/21 History mcg-4.5 mcg/actuation aerosol inhaler ondansetron HCl [Zofran] 4 mg PO Q8H 12/17/20 05/09/21 History ipratropium 0.5 mg-albuterol 3 mg 3 ml INHALATION QID 02/14/21 05/09/21 History (2.5 mg base)/3 mL nebulization soln multivitamin 1 tab PO DAILY 02/14/21 05/09/21 History odosgtvkvs-uhakkuedhexwo-msuwlhsm 1 tab PO Q8H PRN 02/21/21 05/09/21 History 50 mg-325 mg-40 mg tablet lancets 30 gauge #100 ea 02/21/21 04/15/21 History metformin 500 mg tablet,extended 500 mg PO BID 02/21/21 04/15/21 History release 24 hr blood sugar diagnostic #10 ea 03/13/21 05/09/21 History diphenhydramine HCl 25 mg capsule 25 mg PO DIRECTED 03/13/21 05/09/21 History omeprazole 20 mg capsule,delayed 20 mg PO DAILY 03/21/21 05/09/21 History release Allergies Allergy/AdvReac Type Severity Reaction Status Date / Time No Known Allergies Allergy Verified 04/24/21 11:23 Exam Vital signs: Vital Signs Temp 97.7 F 05/09/21 10:06 Pulse 63 05/09/21 10:06 Resp 18 05/09/21 10:06 BP 143/69 H 05/09/21 10:06 Pulse Ox 98 05/09/21 10:06 Intake & Output 05/08/21 05/09/21 05/09/21 18:59 06:59 18:59 Intake Total 140 / 140 Balance 140 / 140 Intake: Intake, IV Amount 140 / 140 PACLitaxel Protein-Bound 200 mg 40 / 40 In Container,Empty 0 ml @ 80 mls/hr IV ONCE ERWIN Rx#: [id number] dexAMETHasone sod phosphate/NS 50 / 50 12 mg In 50 ml @ 200 mls/hr IV ONCE ERWIN Rx#:[id number] ondansetron HCL/NS 16 mg In 50 50 / 50 ml @ 200 mls/hr IV ONCE ERWIN Rx# :[id number] Other: Weight 60.4 kg [place] Weight in Grams 28776 Weight 60.4 kg Body Mass Index 25.7 - Constitutional Present: no acute distress, mild distress - Routine HEENT Exam Head: Present: normal inspection Eye: Present: normal appearance ENT: Present: mucous membranes moist - Routine Neck Exam Present: full ROM - Routine Respiratory Exam Present: CTAB - Routine Cardiovascular Exam Cardiovascular: Present: RRR, S1, S2 - Routine Abdominal Exam Present: soft, tenderness. Absent: nontender - Routine Rectal Exam Patient deferred: digital exam - Routine Extremities Exam Present: nontender - Routine Back/Spine/Pelvis Exam Back/Spine: Present: full ROM - Routine Skin Exam Present: intact - Routine Neurological Exam Present: alert, oriented X3 - Routine Psychiatric Exam Present: normal affect Data - Labs CBC & Chem 7: 05/08/21 10:47 05/08/21 10:47 Labs: 11/28/20 12:04 CA 19-9 [Carbohydrate Antigen 19-9] Routine Complete Blood Count Auto Diff Routine Comprehensive Met. Panel Routine PT with INR [Prothrombin Time INR] Routine 12/02/20 00:00 Acetaminophen [Tylenol] 650 mg PO ONCE dexAMETHasone [Decadron] 12 mg PO ONCE ondansetron HCL/NS [Zofran] 16 mg in 50 ml IV ONCE 12/11/20 13:58 Complete Blood Count Auto Diff Routine Comprehensive Met. Panel Routine PT with INR [Prothrombin Time INR] Routine 12/12/20 00:00 Acetaminophen [Tylenol] 650 mg PO ONCE dexAMETHasone [Decadron] 12 mg PO ONCE ondansetron HCL/NS [Zofran] 16 mg in 50 ml IV ONCE Laboratory Last Values WBC 4.8 X10*3/uL (4.8-10.8) 12/11/20 13:58 RBC 4.57 X10*6/uL (4.20-5.50) 12/11/20 13:58 Hgb 13.1 g/dl (12.0-16.0) 12/11/20 13:58 Hct 41.0 % (37-47) 12/11/20 13:58 MCV 89.7 fL (80-98) 12/11/20 13:58 MCH 28.7 pg (27.0-33.0) 12/11/20 13:58 MCHC 32.0 g/dl (31.0-35.0) 12/11/20 13:58 RDW 12.6 % (11.0-16.0) 12/11/20 13:58 Plt Count 144 X10*3/uL (160-400) L 12/11/20 13:58 MPV 10.3 fL (9.4-12.3) 12/11/20 13:58 Immature Gran % (Auto) 0.4 % (0.0-0.4) 12/11/20 13:58 Neut % (Auto) 69.7 % (45-73) 12/11/20 13:58 Lymph % (Auto) 16.5 % (20-40) L 12/11/20 13:58 [place] % (Auto) 9.5 % (2-11) 12/11/20 13:58 Eos % (Auto) 3.5 % (0-4) 12/11/20 13:58 Baso % (Auto) 0.4 % (0-2) 12/11/20 13:58 Lymph # (Auto) 0.8 X10*3/uL (1.2-4.9) L 12/11/20 13:58 [place] # (Auto) 0.5 X10*3/uL (0.1-1.2) 12/11/20 13:58 Eos # (Auto) 0.2 X10*3/uL (0.0-0.4) 12/11/20 13:58 Baso # (Auto) 0.0 X10*3/uL (0.0-0.2) 12/11/20 13:58 Abs Immat Gran (auto) 0.02 X10*3/uL (0.00-0.03) 12/11/20 13:58 Absolute Neuts (auto) 3.4 X10*3/uL (2.0-8.3) 12/11/20 13:58 Absolute Nucleated RBC 0.000 X10*3/uL (0.0-0.012) 12/11/20 13:58 Nucleated RBC % (auto) 0.0 /100WBC (0.0-0.2) 12/11/20 13:58 PT 14.8 SEC (10.8-13.0) H D 12/11/20 13:58 INR 1.2 (0.9-1.1) H 12/11/20 13:58 Sodium 135 mmol/L (135-145) 12/11/20 13:58 Potassium 4.0 mmol/l (3.3-5.1) 12/11/20 13:58 Chloride 99 mmol/L (96-108) 12/11/20 13:58 Carbon Dioxide 26 mmol/L (22-29) 12/11/20 13:58 Anion Gap 14 (12-20) 12/11/20 13:58 BUN 12 mg/dL (9-16) 12/11/20 13:58 Creatinine 0.97 mg/dL (0.5-1.4) 12/11/20 13:58 Estim Creat Clear Calc 44.5 12/11/20 13:58 Estimated GFR 57 12/11/20 13:58 Random Glucose 181 mg/dL (60-115) H 12/11/20 13:58 Calcium 8.6 mg/dL (8.4-10.2) D 12/11/20 13:58 Total Bilirubin 0.3 mg/dL (0.0-1.0) 12/11/20 13:58 AST 79 U/L (5-31) H 12/11/20 13:58 ALT 59 U/L (0-31) H 12/11/20 13:58 Alkaline Phosphatase 62 U/L (39-117) 12/11/20 13:58 Total Protein 7.3 g/dL (6.5-8.0) 12/11/20 13:58 Albumin 4.3 g/dL (3.5-5.0) 12/11/20 13:58 CA 19-9 Antigen 4855 U/mL (<34) H 11/28/20 12:04 Progress Note: A/P (1) Pancreatic carcinoma Status: Acute Assessment and plan: This is a pleasant 70 year-old lady who presents with a couple of months history of abdominal pain that recently worsened. CT scan of the abdomen revealed: New mass in the head, neck and body the pancreas measuring 4.5 x 6.5 cm worrisome for neoplasm. New bilateral pulmonary nodules. Upper abdominal varices. Large esophageal hernia or intrathoracic stomach. Diverticulosis of the colon. Probable small uterine fibroid. Concern was for pancreatic cancer. Tumor marker Ca 19/9 is :4524. Biopsy was done on 12/22. Pathology revealed: Positive for atypical mucinous neoplasm. Moderately cellular specimen consisting of sheets of mucinous epithelium with cytologic atypia characterized by loss of clarity an irregularly shaped nuclei with Dr. chromatin in irregular nuclear membrane. Differential diagnosis includes an adenocarcinoma, mucinous cystic neoplasm and intraductal papillary mucinous neoplasm. I will proceed with a PET scan for further evaluation. This was done on 12/03, and revealed: Mild FDG activity in the pancreatic mass involving the head and adjacent pancreatic body corresponding to the recently biopsied malignancy. Multiple predominantly subcentimeter pulmonary nodules are present throughout the lungs likely represent metastases. Most of these are too small to be characterized on the PET images but the largest shows FDG activity. No additional abnormality suspicious for metastatic or other malignant lesions are noted. Chronic left posterior parietal cerebral infarction Large hiatal hernia.. My plan was to proceed with systemic chemotherapy. She has been started on gemcitabine and Abraxane based regimen. She had 3 cycles. Repeat imaging from 04/04: CT abdomen: No appreciable change in the mass in the body of the pancreas from October [address] chest: Multiple bilateral pulmonary nodules not appreciably changed from previous PET/CT scan November 2020. Enlarged heart. Large esophageal hernia or intrathoracic stomach. I discussed the CT scan results with her, told her that even though there has not been much decrease in size of the tumor things do appear stable. Stable disease is considered a response to treatment. Hopefully things will decrease with the continued chemotherapy. She has been tolerating it well. She complains of intermittent diarrhea, after chemotherapy. PLAN: I will give her Imodium for that. She is here for her cycle 3 day 15 of her chemotherapy treatment. Will give her 3 more treatments and then re-stage her with another CT scan. I will see her back in a a couple of week's time, All her and her son's questions were answered to their satisfaction. Thanks, CC: Dr. Lancaster. - Time Spent With Patient 25 - 35 minutes
--- NOTE | 2021-05-09 14:57 | MHC.HEMONC ---
Pt here for Cycle 6 Day 1 Gemcitabine/ Paclitaxel. Labs drawn yesterday reviewed. #22 angio inserted in right wrist with blood return noted. 0.9% NS infusing. Pt states she has had diarrhea recently-Dr Cifuentes notified. C/O itchy all over at times after chemotherapy-no skin breakdowns or rash noted at this time. Pre medicated with Zofran 16mg IV and Decadron 12mg IV. Paclitaxel and Gemcitabine IV given as ordered-tolerated well. IV removed from right wrist-no edema or redness at site. Follow up appointment scheduled. Discharged home with son.
--- NOTE | 2021-05-20 14:55 | HO.HEMONCPA ---
[facility] for Abraxane (paclitaxel) [id number] -AUTH # [id number] . EFF: 12/12/20 to 06/09/21. Document is scanned?in the chart.
[2021-05-22 11:44] LABS: MANUAL DIFF FLAG SCAN; PLT CLUMP 1; Red Cell Distribution Width 14.6 % (11.0-16.0); SCAN SMEAR FLAG 1
[2021-05-22 11:45] LABS: Basophils Percent Auto 0.3 % (0-2); Eosinophils Absolute Auto 1.5 X10*3/uL (0.0-0.4); Eosinophils Percent Auto 21.3 % (0-4); Hematocrit 36.6 % (37-47); Hemoglobin 11.5 g/dl (12.0-16.0); Imm Gran Abs Auto 0.03 X10*3/uL (0.00-0.03); Imm Gran Pct Auto 0.4 % (0.0-0.4); Lymphocytes Absolute Auto 1.1 X10*3/uL (1.2-4.9); Lymphocytes Percent Auto 16.4 % (20-40); Mean Corpuscular HGB Conc 31.4 g/dl (31.0-35.0); Mean Corpuscular Volume 92.4 fL (80-98); Mean Platelet Volume 10.8 fL (9.4-12.3); Monocytes Absolute Auto 0.7 X10*3/uL (0.1-1.2); Monocytes Percent Auto 9.5 % (2-11); Neutrophils Absolute Auto 3.6 X10*3/uL (2.0-8.3); Neutrophils Percent Auto 52.1 % (45-73); Platelet Count 127 X10*3/uL (160-400); Red Blood Count 3.96 X10*6/uL (4.20-5.50); White Blood Count 6.9 X10*3/uL (4.8-10.8)
[2021-05-22 12:13] LABS: Alanine Aminotransferase 16 U/L (0-31); Albumin Level 4.3 g/dL (3.5-5.0); Alkaline Phosphatase 65 U/L (39-117); Anion Gap 10 (12-20); Aspartate Amino Transferase 23 U/L (5-31); Bilirubin Total 0.3 mg/dL (0.0-1.0); Blood Urea Nitrogen 14 mg/dL (9-16); Calcium 9.4 mg/dL (8.4-10.2); Carbon Dioxide 29 mmol/L (22-29); Chloride 102 mmol/L (96-108); Creatinine Clr Calc Pharmacy 50.6; Estimated Glomerular Filt Rate > 60; Glucose Random 139 mg/dL (60-115); Potassium 4.4 mmol/L (3.3-5.1); Sodium 137 mmol/L (135-145); Total Protein 7.1 g/dL (6.5-8.0)
[2021-05-22 12:21] LABS: SLIDE REVIEW VERIFIED
[2021-05-23] MEDS: ondansetron HCL/NS 16 MG/50 ML PIGGYBACK 200 MG IV (10:42)
[2021-05-23] MEDS: dexAMETHasone sod phosphate/NS 12 MG/50 ML PIGGYBACK 200 MG IV (11:02)
[2021-05-23] MEDS: Albuterol/Iprat 2.5/0.5MG 3 ML AMPUL.NEB INHALE (11:28)
--- NOTE | 2021-05-23 13:52 | MHC.HEMONC ---
Pt Here for Cycle 6 day 15 Gemcitabine and paclitaxel. Labs drawn yesterday 05/22/21 reviewed. Peripheral IV #22 angio inserted right hand. 0.9% NS infusing. Pt states she has had some nausea and occasional diarrhea and constipation at times. Occasional congested non productive cough noted. Exp wheezes noted throughout lung hammer with fine rales in RLL. Dr Cifuentes notified of respiratory status-plan for albuterol updraft. Resp therapy in room to administer albuterol updraft. Pt pre medicated with Decadron 12mg and zofran 16mg IV. Paclitaxel and Gemcitabine IV given as ordered-tolerated well. Peripheral IV removed-no edema or redness at site. Follow up appointments scheduled and given to pt. Discharge packet given. Discharged home.
[2021-06-05 11:35] LABS: Basophils Percent Auto 0.2 % (0-2); Imm Gran Abs Auto 0.01 X10*3/uL (0.00-0.03); Imm Gran Pct Auto 0.2 % (0.0-0.4)
[2021-06-05 11:37] LABS: Eosinophils Absolute Auto 0.9 X10*3/uL (0.0-0.4); Eosinophils Percent Auto 15.7 % (0-4); Hematocrit 37.1 % (37-47); Hemoglobin 11.7 g/dl (12.0-16.0); Lymphocytes Absolute Auto 0.8 X10*3/uL (1.2-4.9); Lymphocytes Percent Auto 14.1 % (20-40); Mean Corpuscular HGB Conc 31.5 g/dl (31.0-35.0); Mean Corpuscular Hemoglobin 29.3 pg (27.0-33.0); Mean Platelet Volume 10.9 fL (9.4-12.3); Monocytes Absolute Auto 0.5 X10*3/uL (0.1-1.2); Monocytes Percent Auto 8.5 % (2-11); Neutrophils Absolute Auto 3.5 X10*3/uL (2.0-8.3); Neutrophils Percent Auto 61.3 % (45-73); Platelet Count 132 X10*3/uL (160-400); Red Blood Count 3.99 X10*6/uL (4.20-5.50); Red Cell Distribution Width 14.8 % (11.0-16.0); White Blood Count 5.7 X10*3/uL (4.8-10.8)
[2021-06-05 11:43] LABS: MANUAL DIFF FLAG NO
[2021-06-05 12:03] LABS: Alanine Aminotransferase 30 U/L (0-31); Albumin Level 4.1 g/dL (3.5-5.0); Alkaline Phosphatase 58 U/L (39-117); Anion Gap 10 (12-20); Aspartate Amino Transferase 31 U/L (5-31); Bilirubin Total 0.4 mg/dL (0.0-1.0); Blood Urea Nitrogen 13 mg/dL (9-16); Calcium 9.3 mg/dL (8.4-10.2); Carbon Dioxide 28 mmol/L (22-29); Chloride 106 mmol/L (96-108); Creatinine Clr Calc Pharmacy 52.4; Estimated Glomerular Filt Rate > 60; Glucose Random 128 mg/dL (60-115); Potassium 4.3 mmol/L (3.3-5.1); Sodium 140 mmol/L (135-145); Total Protein 6.9 g/dL (6.5-8.0)
[2021-06-06 11:07] VITALS: BP 151/66; PULSE 69; RESP 18; TEMP 36.4; O2SAT 100; BMI 25.4
[2021-06-06] MEDS: ondansetron HCL/NS 16 MG/50 ML PIGGYBACK 200 MG IV (11:22)
[2021-06-06] MEDS: dexAMETHasone sod phosphate/NS 12 MG/50 ML PIGGYBACK 200 MG IV (11:43)
--- NOTE | 2021-06-06 11:57 | P.PNHO_ITS ---
Medical Summary - Medical Summary Date of Service: 06/06/21 Chief complaint: Follow-up for: Pancreatic carcinoma. Medical Summary: DIAGNOSIS: Concern is for pancreatic cancer. CURRENT THERAPY: Here for gemcitabine Abraxane., cycle 7. Interval History Interval history: This is a pleasant 70-year-old lady, here for a follow-up visit. She tells me she has been feeling, so so. Overall she is much better. Sometimes she feels weak. After she receives the chemotherapy the next couple days she has some nausea and retching but no vomiting. The anti emetic helps. Abdominal pain comes and goes. It is less now. The pain med helps. She gets intermittent diarrhea after the treatment. No gross blood in the stools. Appetite is fair. Her weight is stable. She is actually quite independent. Denies any fever nor chills. No headache no dizziness. She denies any chest pain or trouble breathing. She is in excellent spirits. Rest of the review of systems is unremarkable. Previous history: She was seen in house. She presented to the hospital with complaints of abdominal pain. She complained of pain all over , on her abdomen, back, chest, legs. She reported that the abdominal pain had been going on for 2 months but worsened over the past 3 days. The pain is generalized abdominal pain, 8/10, intermittent, nonradiating, associated with nausea and vomiting. She also had occasional chills with no fever. She reported the pain to be just generalized discomfort. When asked about weight loss she reports about 1-2 lb of weight loss but not more. She also complained of years of shortness of breath with no change. She denied urinary symptoms and no lower extremity edema. Patient also complained of bloating, and low appetite. Her temp was 98.6?, pulse rate of 69, respiratory rate of 19, and oxygen saturation of 95% on room air. Labs: significant for PT of 27.7 INR of 2.3, sodium of 130, BUN of 11 with creatinine of 0.77, troponin 38 trended down to 37, BNP of 259, CT abdomen showed: New mass in the head neck and body of the pancreas measuring 4.5 x 6.5 cm worrisome for neoplasm. New bilateral pulmonary nodules. Upper abdominal varices. Large esophageal hernia, or intrathoracic stomach. Diverticulosis of the colon. Probable small uterine fibroid. Hospital course: The patient was evaluated for abdominal pain. I recommended, Biopsy of the pancreas. Discussed with IR who recommended holding both aspirin and warfarin for 3 days prior to procedure which was to be scheduled for next Wednesday. After discussing with the patient, she preferred to come back at the time of the biopsy. Her INR of 1.6 at the day of discharge. She was noted to have hyponatremia which seems to be chronic around 130-131. BNP was noted to be mildly elevated around 200 which was the baseline for her, looking back at her previous readings. Not in acute CHF exacerbation. les. Upper abdominal varices. Large esophageal hernia Past medical history: Diabetes, COPD, CVA, hypertension. Review of Systems - Constitutional Reports no additional constitutional complaints, Denies fever(s), Reports lack of energy, Reports malaise - Eyes Reports no additional eye complaints - ENT Reports no additional ear, nose, mouth, and throat complaints - Cardiovascular Reports no additional cardiovascular complaints - Respiratory Reports no additional respiratory complaints - Gastrointestinal Reports no additional gastrointestinal complaints - Genitourinary Reports no additional female genitourinary complaints - Musculoskeletal Reports no additional musculoskeletal complaints - Integumentary/Breasts Skin/Breast: Reports no additional skin complaints - Neurologic Reports no additional neurologic complaints, Denies loss of vision, Reports weakness - Psychiatric Reports no additional psychiatric complaints - Endocrine Reports no additional endocrine complaints - Hematologic/Lymphatic Reports no additional hematologic/lymphatic complaints - Allergic/Immunologic Reports no additional allergic/immunologic complaints [facility] Medical History: Medical History (Last Updated 04/15/21 @ 11:15 by Hieu Eddy MD) Anxiety and depression Biventricular ICD (implantable cardioverter-defibrillator) in place Cardiomyopathy Congestive heart failure COPD (chronic obstructive pulmonary disease) Coronary artery disease Current use of anticoagulant therapy CVA (cerebral vascular accident) Diverticulitis Esophageal hernia GERD (gastroesophageal reflux disease) History of renal calculi HTN (hypertension) Hypercholesterolemia Hyponatremia Osteopenia Type 2 diabetes mellitus with hyperglycemia Umbilical hernia Functional capacity: uses cane/walker Patient : No Family History: Family History (Last Reviewed 01/17/21 @ 10:55 by Rufina Go RN) Father Medical history unknown Mother Diabetes Hypertension Surgical History: Surgical History (Last Reviewed 01/17/21 @ 10:56 by Rufina Go RN) History of hemicolectomy History of incisional hernia repair History of pacemaker Social History: Social History (Last Reviewed 12/27/20 @ 13:33 by Glneroy Jerez) Living Situation History: Household Members: Family Housing: House Are you a primary tree care foreman to a significant other at home: No Do you presently have visiting nurse or other home services: No Alcohol History: Alcohol intake: never Alcohol History Details: Alcohol intake frequency: does not drink Substance Use History: Use of substances other than those prescribed or required for medical reasons : No Domestic Abuse History: Have you been hit, kicked, punched, or otherwise hurt by someone within the past year? If so, by whom?: No Do you feel safe in your current relationship?: No Healthcare Practices: Roman Catholic Healthcare Practices: Shinto/ Gnosticism Nutrition Assessment: Recently lost weight without trying: Yes How much weight loss: 24-33 pounds Eating poorly because of decreased appetite: Yes Nutrition screen score: 6 Nutrition Risks: Acute nausea or vomiting Patient : No : No Poor oral hygiene: No Occupation Assessmet: service: No Current occupational status: retired Oncology Screenings - ECOG Performance Status ECOG Performance Status: 1 Home Medications and Allergies Current Medications: Current Medications Generic Name Dose Route Start Last Admin Trade Name Freq PRN Reason Stop Dose Admin Albuterol/Ipratropium 3 ml 06/06/21 11:49 Albuterol/Iprat 2.5/0.5mg 3 Ml Ampul.Neb INHALE 06/06/21 11:50 ONCE ONE Dexamethasone Sodium Phosphate 12 mg in 50 mls @ 200 mls/hr 06/06/21 00:00 06/06/21 11:43 Decadron IV 06/06/21 23:00 200 mls/hr ONCE ERWIN Administration Ondansetron HCl 16 mg in 50 mls @ 200 mls/hr 06/06/21 00:00 06/06/21 11:37 Zofran IV 06/06/21 23:00 Infused ONCE ERWIN Infusion Paclitaxel/Albumin ( 40 mls @ 80 mls/hr 06/06/21 00:00 Nanoparticle) 200 mg/ IV IV 06/06/21 23:59 Miscellaneous Supplies ONCE ERWIN Gemcitabine HCl 1,000 mg/ 292.105 mls @ 584.21 mls/hr 06/06/21 00:00 Gemcitabine HCl 600 mg/ Sodium IV 06/06/21 23:59 Chloride ONCE ERWIN Home Medications Medication Instructions Recorded Confirmed Type carbamazepine 200 mg PO DAILY 10/30/20 06/06/21 History budesonide-formoterol HFA 160 2 puff INHALATION BID 11/19/20 06/06/21 History mcg-4.5 mcg/actuation aerosol inhaler ondansetron HCl [Zofran] 4 mg PO Q8H 12/17/20 06/06/21 History ipratropium 0.5 mg-albuterol 3 mg 3 ml INHALATION QID 02/14/21 06/06/21 History (2.5 mg base)/3 mL nebulization soln multivitamin 1 tab PO DAILY 02/14/21 06/06/21 History oursqsyrqc-lgycurrrghavs-iilqsdwj 1 tab PO Q8H PRN 02/21/21 06/06/21 History 50 mg-325 mg-40 mg tablet lancets 30 gauge #100 ea 02/21/21 06/06/21 History metformin 500 mg tablet,extended 500 mg PO BID 02/21/21 06/06/21 History release 24 hr blood sugar diagnostic #10 ea 03/13/21 06/06/21 History diphenhydramine HCl 25 mg capsule 25 mg PO DIRECTED 03/13/21 06/06/21 History omeprazole 20 mg capsule,delayed 20 mg PO DAILY 03/21/21 06/06/21 History release metformin 850 mg tablet 850 mg PO BID 05/22/21 06/06/21 History omeprazole 40 mg capsule,delayed 40 mg PO DAILY 05/22/21 06/06/21 History release Allergies Allergy/AdvReac Type Severity Reaction Status Date / Time No Known Allergies Allergy Verified 04/24/21 11:23 Exam Vital signs: Vital Signs Temp 97.6 F 06/06/21 11:07 Pulse 69 06/06/21 11:07 Resp 18 06/06/21 11:07 BP 151/66 H 06/06/21 11:07 Pulse Ox 100 06/06/21 11:07 Intake & Output 06/05/21 06/06/21 06/06/21 18:59 06:59 18:59 Intake Total 50 / 50 Balance 50 / 50 Intake: Intake, IV Amount 50 / 50 ondansetron HCL/NS 16 mg In 50 50 / 50 ml @ 200 mls/hr IV ONCE [facility] Rx# :[id number] Other: Weight 59.8 kg Weight in Grams 82048 Weight 59.8 kg Body Mass Index 25.4 - Constitutional Present: no acute distress, mild distress - Routine HEENT Exam Head: Present: normal inspection Eye: Present: normal appearance ENT: Present: mucous membranes moist - Routine Neck Exam Present: full ROM - Routine Respiratory Exam Present: CTAB - Routine Cardiovascular Exam Cardiovascular: Present: RRR, S1, S2 - Routine Abdominal Exam Present: soft, tenderness. Absent: nontender - Routine Rectal Exam Patient deferred: digital exam - Routine Extremities Exam Present: nontender - Routine Back/Spine/Pelvis Exam Back/Spine: Present: full ROM - Routine Skin Exam Present: intact - Routine Neurological Exam Present: alert, oriented X3 - Routine Psychiatric Exam Present: normal affect Data - Labs CBC & Chem 7: 06/05/21 11:21 06/05/21 11:21 Labs: 11/28/20 12:04 CA 19-9 [Carbohydrate Antigen 19-9] Routine Complete Blood Count Auto Diff Routine Comprehensive Met. Panel Routine PT with INR [Prothrombin Time INR] Routine 12/02/20 00:00 Acetaminophen [Tylenol] 650 mg PO ONCE dexAMETHasone [Decadron] 12 mg PO ONCE ondansetron HCL/NS [Zofran] 16 mg in 50 ml IV ONCE 12/11/20 13:58 Complete Blood Count Auto Diff Routine Comprehensive Met. Panel Routine PT with INR [Prothrombin Time INR] Routine 12/12/20 00:00 Acetaminophen [Tylenol] 650 mg PO ONCE dexAMETHasone [Decadron] 12 mg PO ONCE ondansetron HCL/NS [Zofran] 16 mg in 50 ml IV ONCE Laboratory Last Values WBC 4.8 X10*3/uL (4.8-10.8) 12/11/20 13:58 RBC 4.57 X10*6/uL (4.20-5.50) 12/11/20 13:58 Hgb 13.1 g/dl (12.0-16.0) 12/11/20 13:58 Hct 41.0 % (37-47) 12/11/20 13:58 MCV 89.7 fL (80-98) 12/11/20 13:58 MCH 28.7 pg (27.0-33.0) 12/11/20 13:58 MCHC 32.0 g/dl (31.0-35.0) 12/11/20 13:58 RDW 12.6 % (11.0-16.0) 12/11/20 13:58 Plt Count 144 X10*3/uL (160-400) L 12/11/20 13:58 MPV 10.3 fL (9.4-12.3) 12/11/20 13:58 Immature Gran % (Auto) 0.4 % (0.0-0.4) 12/11/20 13:58 Neut % (Auto) 69.7 % (45-73) 12/11/20 13:58 Lymph % (Auto) 16.5 % (20-40) L 12/11/20 13:58 [place] % (Auto) 9.5 % (2-11) 12/11/20 13:58 Eos % (Auto) 3.5 % (0-4) 12/11/20 13:58 Baso % (Auto) 0.4 % (0-2) 12/11/20 13:58 Lymph # (Auto) 0.8 X10*3/uL (1.2-4.9) L 12/11/20 13:58 [place] # (Auto) 0.5 X10*3/uL (0.1-1.2) 12/11/20 13:58 Eos # (Auto) 0.2 X10*3/uL (0.0-0.4) 12/11/20 13:58 Baso # (Auto) 0.0 X10*3/uL (0.0-0.2) 12/11/20 13:58 Abs Immat Gran (auto) 0.02 X10*3/uL (0.00-0.03) 12/11/20 13:58 Absolute Neuts (auto) 3.4 X10*3/uL (2.0-8.3) 12/11/20 13:58 Absolute Nucleated RBC 0.000 X10*3/uL (0.0-0.012) 12/11/20 13:58 Nucleated RBC % (auto) 0.0 /100WBC (0.0-0.2) 12/11/20 13:58 PT 14.8 SEC (10.8-13.0) H D 12/11/20 13:58 INR 1.2 (0.9-1.1) H 12/11/20 13:58 Sodium 135 mmol/L (135-145) 12/11/20 13:58 Potassium 4.0 mmol/l (3.3-5.1) 12/11/20 13:58 Chloride 99 mmol/L (96-108) 12/11/20 13:58 Carbon Dioxide 26 mmol/L (22-29) 12/11/20 13:58 Anion Gap 14 (12-20) 12/11/20 13:58 BUN 12 mg/dL (9-16) 12/11/20 13:58 Creatinine 0.97 mg/dL (0.5-1.4) 12/11/20 13:58 Estim Creat Clear Calc 44.5 12/11/20 13:58 Estimated GFR 57 12/11/20 13:58 Random Glucose 181 mg/dL (60-115) H 12/11/20 13:58 Calcium 8.6 mg/dL (8.4-10.2) D 12/11/20 13:58 Total Bilirubin 0.3 mg/dL (0.0-1.0) 12/11/20 13:58 AST 79 U/L (5-31) H 12/11/20 13:58 ALT 59 U/L (0-31) H 12/11/20 13:58 Alkaline Phosphatase 62 U/L (39-117) 12/11/20 13:58 Total Protein 7.3 g/dL (6.5-8.0) 12/11/20 13:58 Albumin 4.3 g/dL (3.5-5.0) 12/11/20 13:58 CA 19-9 Antigen 4855 U/mL (<34) H 11/28/20 12:04 Progress Note: A/P (1) Pancreatic carcinoma Status: Acute Assessment and plan: This is a pleasant 70 year-old lady who presents with a couple of months history of abdominal pain that recently worsened. CT scan of the abdomen revealed: New mass in the head, neck and body the pancreas measuring 4.5 x 6.5 cm worrisome for neoplasm. New bilateral pulmonary nodules. Upper abdominal varices. Large esophageal hernia or intrathoracic stomach. Diverticulosis of the colon. Probable small uterine fibroid. Concern was for pancreatic cancer. Tumor marker Ca 19/9 is :4524. Biopsy was done on 11/12. Pathology revealed: Positive for atypical mucinous neoplasm. Moderately cellular specimen consisting of sheets of mucinous epithelium with cytologic atypia characterized by loss of clarity an irregularly shaped nuclei with Dr. chromatin in irregular nuclear membrane. Differential diagnosis includes an adenocarcinoma, mucinous cystic neoplasm and intraductal papillary mucinous neoplasm. I will proceed with a PET scan for further evaluation. This was done on 12/03, and revealed: Mild FDG activity in the pancreatic mass involving the head and adjacent pancreatic body corresponding to the recently biopsied malignancy. Multiple predominantly subcentimeter pulmonary nodules are present throughout the lungs likely represent metastases. Most of these are too small to be characterized on the PET images but the largest shows FDG activity. No additional abnormality suspicious for metastatic or other malignant lesions are noted. Chronic left posterior parietal cerebral infarction Large hiatal hernia.. My plan was to proceed with systemic chemotherapy. She has been started on gemcitabine and Abraxane based regimen. She had 3 cycles. Repeat imaging from 04/04: CT abdomen: No appreciable change in the mass in the body of the pancreas from October [address] chest: Multiple bilateral pulmonary nodules not appreciably changed from previous PET/CT scan November 2020. Enlarged heart. Large esophageal hernia or intrathor acic stomach. I discussed the CT scan results with her, told her that even though there has not been much decrease in size of the tumor things do appear stable. Stable disease is considered a response to treatment. Hopefully things will decrease with the continued chemotherapy. She has been tolerating it well. She complains of intermittent diarrhea, after chemotherapy. CT scan of the abdomen from April 04: No appreciable change in the mass in the body of the pancreas from October [address] chest from April 04: Multiple bilateral pulmonary nodules not appreciably changed from previous PET/CT scan November 2020. Enlarged heart. Large esophageal hernia or intrathoracic stomach. PLAN: She is here for her 7th chemotherapy treatment. Will give her 2 more treatments and then re-stage her with another CT scan. I will see her back in a a couple of week's time, All her and her son's questions were answered to their satisfaction. I went over the results of the CT scan and the plan with them. Thanks, CC: Dr. Lancaster. - Time Spent With Patient Time Spent with Patient (in minutes): 35
[2021-06-06] MEDS: Albuterol/Iprat 2.5/0.5MG 3 ML AMPUL.NEB INHALE (12:21)
[2021-06-06 12:22] VITALS: PULSE 60; O2SAT 99
--- NOTE | 2021-06-06 14:42 | MHC.HEMONC ---
Pt here for Cycle 7 day 1 Gemcitabine/Paclitaxel IV and MD visit. Son with pt today. Labs drawn yesterday reviewed. Pt states she continues with fatigue, occasional nausea, diarrhea and constipation at times, and dry mouth. Echo done today. Exp. wheeze noted throughout lung hammer-dry cough noted. Dr Cifuentes into see pt-notified of resp status. Plan for albuterol updraft. Resp therapist in room for updraft-exp wheezes less but remain after treatment. Clnical summary updated by nurse. Pre medicated with Zofran 16mg IV and Decadron 12mg IV. Paclitaxel and Gemcitabine IV given as ordered-tolerated well. Follow up appointments scheduled. Discharge packet given. Peripheral IV removed-no edema or redness at site. Discharged home.
[2021-06-11 12:07] LABS: Carbohydrate Antigen 19-9 2056 U/mL (<34)
[2021-06-19 10:47] LABS: MANUAL DIFF FLAG NO
[2021-06-19 10:55] LABS: Basophils Percent Auto 0.4 % (0-2); Eosinophils Absolute Auto 0.6 X10*3/uL (0.0-0.4); Eosinophils Percent Auto 11.3 % (0-4); Hematocrit 38.7 % (37-47); Hemoglobin 11.9 g/dl (12.0-16.0); Imm Gran Abs Auto 0.04 X10*3/uL (0.00-0.03); Imm Gran Pct Auto 0.7 % (0.0-0.4); Lymphocytes Absolute Auto 1.1 X10*3/uL (1.2-4.9); Lymphocytes Percent Auto 20.1 % (20-40); Mean Corpuscular HGB Conc 30.7 g/dl (31.0-35.0); Mean Corpuscular Hemoglobin 28.6 pg (27.0-33.0); Mean Platelet Volume 10.3 fL (9.4-12.3); Monocytes Absolute Auto 0.5 X10*3/uL (0.1-1.2); Neutrophils Absolute Auto 3.3 X10*3/uL (2.0-8.3); Neutrophils Percent Auto 58.5 % (45-73); Platelet Count 136 X10*3/uL (160-400); Red Blood Count 4.16 X10*6/uL (4.20-5.50); Red Cell Distribution Width 15.2 % (11.0-16.0); White Blood Count 5.7 X10*3/uL (4.8-10.8)
[2021-06-19 11:28] LABS: Alanine Aminotransferase 43 U/L (0-31); Albumin Level 4.4 g/dL (3.5-5.0); Alkaline Phosphatase 61 U/L (39-117); Anion Gap 13 (12-20); Aspartate Amino Transferase 46 U/L (5-31); Bilirubin Total 0.3 mg/dL (0.0-1.0); Blood Urea Nitrogen 19 mg/dL (9-16); Calcium 9.7 mg/dL (8.4-10.2); Carbon Dioxide 25 mmol/L (22-29); Chloride 108 mmol/L (96-108); Creatinine Clr Calc Pharmacy 49.2; Estimated Glomerular Filt Rate > 60; Glucose Random 108 mg/dL (60-115); Potassium 4.9 mmol/L (3.3-5.1); Sodium 141 mmol/L (135-145); Total Protein 7.2 g/dL (6.5-8.0)
[2021-06-20 09:39] VITALS: BP 128/54; PULSE 64; RESP 17; TEMP 36.3; O2SAT 98; BMI 25.1
[2021-06-20] MEDS: dexAMETHasone sod phosphate/NS 12 MG/50 ML PIGGYBACK 200 MG IV (10:46)
--- NOTE | 2021-06-20 14:39 | MHC.HEMONC ---
Pt here for Cycle 7 day 15 Paclitaxel/Gemcitabine IV. Labs drawn yesterday reviewed. #22 angio inserted in left forearm, 0.9% NS infusing. Pt states she has fatigue and occasional diarrhea. States she has eye floaters States has an appointment with eye doctor next month. Pre medicated with Zofran 16mg IV and Decadron 12mg IV. Paclitaxel and Gemicitadine IV given as ordered-tolerated well. Peripheral IV removed-no edema at site after removal. Follow up appointment scheduled. Discharge packet given. Discharged home.
[2021-07-03 10:58] LABS: MANUAL DIFF FLAG NO
[2021-07-03 11:06] LABS: Basophils Percent Auto 0.2 % (0-2); Eosinophils Absolute Auto 0.6 X10*3/uL (0.0-0.4); Eosinophils Percent Auto 10.5 % (0-4); Hematocrit 34.1 % (37-47); Hemoglobin 10.6 g/dl (12.0-16.0); Imm Gran Abs Auto 0.02 X10*3/uL (0.00-0.03); Imm Gran Pct Auto 0.4 % (0.0-0.4); Lymphocytes Absolute Auto 0.9 X10*3/uL (1.2-4.9); Lymphocytes Percent Auto 16.9 % (20-40); Mean Corpuscular HGB Conc 31.1 g/dl (31.0-35.0); Mean Corpuscular Hemoglobin 28.9 pg (27.0-33.0); Mean Corpuscular Volume 92.9 fL (80-98); Mean Platelet Volume 10.2 fL (9.4-12.3); Monocytes Absolute Auto 0.5 X10*3/uL (0.1-1.2); Monocytes Percent Auto 9.4 % (2-11); Neutrophils Absolute Auto 3.3 X10*3/uL (2.0-8.3); Neutrophils Percent Auto 62.6 % (45-73); Platelet Count 117 X10*3/uL (160-400); Red Blood Count 3.67 X10*6/uL (4.20-5.50); Red Cell Distribution Width 15.7 % (11.0-16.0); White Blood Count 5.3 X10*3/uL (4.8-10.8)
[2021-07-03 11:25] LABS: Alanine Aminotransferase 37 U/L (0-31); Alkaline Phosphatase 55 U/L (39-117); Anion Gap 10 (12-20); Aspartate Amino Transferase 32 U/L (5-31); Bilirubin Total 0.3 mg/dL (0.0-1.0); Blood Urea Nitrogen 16 mg/dL (9-16); Carbon Dioxide 28 mmol/L (22-29); Chloride 107 mmol/L (96-108); Creatinine Clr Calc Pharmacy 50.7; Estimated Glomerular Filt Rate > 60; Glucose Random 146 mg/dL (60-115); Sodium 141 mmol/L (135-145); Total Protein 6.6 g/dL (6.5-8.0)
[2021-07-04 10:02] VITALS: BP 141/63; PULSE 70; RESP 18; TEMP 36.5; O2SAT 98; BMI 25.7
[2021-07-04] MEDS: dexAMETHasone sod phosphate/NS 12 MG/50 ML PIGGYBACK 200 MG IV (10:49)
[2021-07-04] MEDS: Albuterol/Iprat 2.5/0.5MG 3 ML AMPUL.NEB INHALE (12:30)
--- NOTE | 2021-07-04 15:05 | MHC.HEMONC ---
Pt here for C8 D15 Paclitaxel/Gemcitabine IV. Labs drawn yesterday reviewed. Okay to receive treatment. Pt states she has occasional nausea with rare vomiting, occasional oral sores-none today, tingling and numbness once for 20 minutes recently in hands and feet. #22 angio inserted in right hand-0.9% NS infusing. Pre medicated with Zofran 16mg IV and decadron 12mg IV. Paclitaxel/Gemcitabine IV given as ordered-tolerated well. Expiratory wheezes noted throughout lung hammer-Dr Cifuentes notified. Updraft ordered and given by resp therapist. Pt cautioned to stay out of heat during next few high heat and humidity days and hydrate. IV removed-no edema or redness at site. Follow up appointment scheduled. Discharge packet given.
[2021-07-17 10:54] LABS: MANUAL DIFF FLAG NO
[2021-07-17 11:06] LABS: Basophils Percent Auto 0.2 % (0-2); Eosinophils Absolute Auto 0.5 X10*3/uL (0.0-0.4); Eosinophils Percent Auto 11.9 % (0-4); Hematocrit 36.1 % (37-47); Hemoglobin 11.3 g/dl (12.0-16.0); Imm Gran Abs Auto 0.02 X10*3/uL (0.00-0.03); Imm Gran Pct Auto 0.4 % (0.0-0.4); Lymphocytes Absolute Auto 0.6 X10*3/uL (1.2-4.9); Lymphocytes Percent Auto 12.4 % (20-40); Mean Corpuscular HGB Conc 31.3 g/dl (31.0-35.0); Mean Corpuscular Hemoglobin 28.9 pg (27.0-33.0); Mean Corpuscular Volume 92.3 fL (80-98); Monocytes Absolute Auto 0.5 X10*3/uL (0.1-1.2); Monocytes Percent Auto 11.5 % (2-11); Neutrophils Absolute Auto 2.8 X10*3/uL (2.0-8.3); Neutrophils Percent Auto 63.6 % (45-73); Platelet Count 107 X10*3/uL (160-400); Red Blood Count 3.91 X10*6/uL (4.20-5.50); Red Cell Distribution Width 15.6 % (11.0-16.0); White Blood Count 4.5 X10*3/uL (4.8-10.8)
[2021-07-17 11:08] LABS: INTERNATIONAL NORM RATIO 1.6 (0.9-1.1); Prothrombin Time 18.1 SEC (9.9-13.0)
[2021-07-17 11:35] LABS: Alanine Aminotransferase 33 U/L (0-31); Albumin Level 4.2 g/dL (3.5-5.0); Alkaline Phosphatase 62 U/L (39-117); Anion Gap 10 (12-20); Aspartate Amino Transferase 30 U/L (5-31); Bilirubin Total 0.3 mg/dL (0.0-1.0); Blood Urea Nitrogen 17 mg/dL (9-16); Calcium 9.3 mg/dL (8.4-10.2); Carbon Dioxide 29 mmol/L (22-29); Chloride 106 mmol/L (96-108); Creatinine Clr Calc Pharmacy 49.4; Estimated Glomerular Filt Rate > 60; Glucose Random 130 mg/dL (60-115); Potassium 4.8 mmol/L (3.3-5.1); Sodium 140 mmol/L (135-145); Total Protein 6.9 g/dL (6.5-8.0)
[2021-07-18 09:49] VITALS: BP 136/64; PULSE 80; RESP 16; TEMP 36.9; O2SAT 96; BMI 25.4
[2021-07-18] MEDS: dexAMETHasone sod phosphate/NS 12 MG/50 ML PIGGYBACK 200 MG IV (12:18)
--- NOTE | 2021-07-18 15:56 | MHC.HEMONC ---
Patient here for C9 D1 Paclitaxel/Gemcitabine IV. Labs drawn and reviewed. Batchmaker Aleena was present. Patient states she had tingling and numbness once 3 days ago for approximately 3-5 minutes in hands and feet bilaterally. #24 angio inserted in left lower arm after 3 attempts. 0.9% NS infusing. Pre medicated with Zofran 16mg IV and decadron 12mg IV. Paclitaxel/Gemcitabine IV given as ordered after blood return was confirmed in peripheral IV and patient tolerated well. Patient's home Lovenox administered in LLQ. IV removed, catheter intact, no edema or redness at site. Follow up appointment and next infusion scheduled for 08/01/21. Discharge packet given. Patient exited the unit with her son.
--- NOTE | 2021-07-21 12:23 | MHC.HEMONC ---
received call from [facility] in [facility]. Pt is c/o h/a and general body aches and fatigue. She did receive treatment with Gemzar and Abraxane on Wednesday. She took oxycodone last pm and this morning. I advised her top take her oxycodone every 6 hr and she could take her fioricet for headache. Her VS were stable here and no fever. She will monitor her sx at home and call with fever or worsening and uncontrolled pain.
[2021-08-01 10:17] VITALS: BP 142/70; PULSE 71; RESP 18; TEMP 36.7; O2SAT 98; BMI 25.3
[2021-08-01 10:27] LABS: MANUAL DIFF FLAG NO
[2021-08-01 10:33] LABS: Basophils Percent Auto 0.6 % (0-2); Eosinophils Absolute Auto 0.6 X10*3/uL (0.0-0.4); Eosinophils Percent Auto 12.2 % (0-4); Hematocrit 36.9 % (37-47); Hemoglobin 11.5 g/dl (12.0-16.0); Imm Gran Abs Auto 0.03 X10*3/uL (0.00-0.03); Imm Gran Pct Auto 0.6 % (0.0-0.4); Lymphocytes Absolute Auto 0.9 X10*3/uL (1.2-4.9); Lymphocytes Percent Auto 16.9 % (20-40); Mean Corpuscular HGB Conc 31.2 g/dl (31.0-35.0); Mean Corpuscular Volume 92.9 fL (80-98); Mean Platelet Volume 10.5 fL (9.4-12.3); Monocytes Absolute Auto 0.6 X10*3/uL (0.1-1.2); Monocytes Percent Auto 10.7 % (2-11); Platelet Count 164 X10*3/uL (160-400); Red Blood Count 3.97 X10*6/uL (4.20-5.50); Red Cell Distribution Width 15.7 % (11.0-16.0); White Blood Count 5.2 X10*3/uL (4.8-10.8)
[2021-08-01 10:50] LABS: Alanine Aminotransferase 51 U/L (0-31); Albumin Level 4.2 g/dL (3.5-5.0); Alkaline Phosphatase 65 U/L (39-117); Anion Gap 11 (12-20); Aspartate Amino Transferase 49 U/L (5-31); Bilirubin Total 0.4 mg/dL (0.0-1.0); Blood Urea Nitrogen 14 mg/dL (9-16); Calcium 9.8 mg/dL (8.4-10.2); Carbon Dioxide 27 mmol/L (22-29); Chloride 107 mmol/L (96-108); Creatinine Clr Calc Pharmacy 52.8; Estimated Glomerular Filt Rate > 60; Glucose Random 138 mg/dL (60-115); Sodium 140 mmol/L (135-145); Total Protein 7.1 g/dL (6.5-8.0)
[2021-08-01] MEDS: dexAMETHasone sod phosphate/NS 12 MG/50 ML PIGGYBACK 200 MG IV (11:30)
--- NOTE | 2021-08-01 14:12 | MHC.HEMONC ---
Pt here for C9 D1 Gemcitabine/Paclitaxel IV. Labs drawn by hand hardener-specimen to lab. #22 angio inserted in right hand-blood return noted. 0.9% NS infusing. Pt states she has had a headache and some diarrhea over the last week. Encouraged to take prescribed immodium for diarrhea. Taking Oxycodone and oxycontin for pain control with relief per pt. Dr Cifuentes into see pt. Clinical summary updated by nurse. Lab results reviewed. Pre-medicated with Zofran 16mg IV and Dexamethasone 12mg IV. Paclitaxel and Gemcitabine IV given as ordered-tolerated well. Peripheral IV removed-no edema at site. Pt starting on Eloquis today and stopping coumadin per Dr Cifuentes. Follow up appointments scheduled. Discharge packet given. Son (Benedicto) with pt for chemotherapy and MD visit
--- NOTE | 2021-08-01 15:40 | PM.HEMONCPN ---
Medical Summary - Medical Summary Date of Service: 08/01/21 Chief complaint: Follow-up for: Pancreatic carcinoma. Medical Summary: DIAGNOSIS: Concern is for pancreatic cancer. CURRENT THERAPY: Here for gemcitabine Abraxane., cycle 9 day 1. Interval History Interval history: This is a pleasant 70-year-old lady, here for a follow-up visit. She tells me she has been feeling reasonably well. Overall she is much better. Sometimes she feels bit tired. Denies any fever nor chills. No headache no dizziness. She denies any chest pain or trouble breathing. After she receives the chemotherapy the next couple days she has some nausea and retching but no vomiting. The anti emetic helps. Abdominal pain comes and goes. It is less now. The pain medicines help. She gets intermittent diarrhea after the treatment. No gross blood in the stools. She does have Imodium that she can take in that case. Appetite is fair. Her weight is stable. She is actually quite independent. She is in excellent spirits. Rest of the review of systems is unremarkable. Previous history: She was seen in house. She presented to the hospital with complaints of abdominal pain. She complained of pain all over , on her abdomen, back, chest, legs. She reported that the abdominal pain had been going on for 2 months but worsened over the past 3 days. The pain is generalized abdominal pain, 8/10, intermittent, nonradiating, associated with nausea and vomiting. She also had occasional chills with no fever. She reported the pain to be just generalized discomfort. When asked about weight loss she reports about 1-2 lb of weight loss but not more. She also complained of years of shortness of breath with no change. She denied urinary symptoms and no lower extremity edema. Patient also complained of bloating, and low appetite. Her temp was 98.6?, pulse rate of 69, respiratory rate of 19, and oxygen saturation of 95% on room air. Labs: significant for PT of 27.7 INR of 2.3, sodium of 130, BUN of 11 with creatinine of 0.77, troponin 38 trended down to 37, BNP of 259, CT abdomen showed: New mass in the head neck and body of the pancreas measuring 4.5 x 6.5 cm worrisome for neoplasm. New bilateral pulmonary nodules. Upper abdominal varices. Large esophageal hernia, or intrathoracic stomach. Diverticulosis of the colon. Probable small uterine fibroid. Hospital course: The patient was evaluated for abdominal pain. I recommended, Biopsy of the pancreas. Discussed with IR who recommended holding both aspirin and warfarin for 3 days prior to procedure which was to be scheduled for next Wednesday. After discussing with the patient, she preferred to come back at the time of the biopsy. Her INR of 1.6 at the day of discharge. She was noted to have hyponatremia which seems to be chronic around 130-131. BNP was noted to be mildly elevated around 200 which was the baseline for her, looking back at her previous readings. Not in acute CHF exacerbation. les. Upper abdominal varices. Large esophageal hernia Past medical history: Diabetes, COPD, CVA, hypertension. Review of Systems - Constitutional Reports no additional constitutional complaints, Reports lack of energy, Denies weight loss - Eyes Reports no additional eye complaints - ENT Reports no additional ear, nose, mouth, and throat complaints - Cardiovascular Reports no additional cardiovascular complaints - Respiratory Reports no additional respiratory complaints - Gastrointestinal Reports no additional gastrointestinal complaints, Reports abdominal pain, Reports diarrhea, Reports nausea - Genitourinary Reports no additional female genitourinary complaints - Musculoskeletal Reports no additional musculoskeletal complaints - Integumentary/Breasts Skin/Breast: Reports no additional skin complaints - Neurologic Reports no additional neurologic complaints, Denies loss of vision, Reports weakness - Psychiatric Reports no additional psychiatric complaints - Endocrine Reports no additional endocrine complaints - Hematologic/Lymphatic Reports no additional hematologic/lymphatic complaints - Allergic/Immunologic Reports no additional allergic/immunologic complaints [facility] Medical History: Medical History (Last Updated 04/15/21 @ 11:15 by Hieu Eddy MD) Anxiety and depression Biventricular ICD (implantable cardioverter-defibrillator) in place Cardiomyopathy Congestive heart failure COPD (chronic obstructive pulmonary disease) Coronary artery disease Current use of anticoagulant therapy CVA (cerebral vascular accident) Diverticulitis Esophageal hernia GERD (gastroesophageal reflux disease) History of renal calculi HTN (hypertension) Hypercholesterolemia Hyponatremia Osteopenia Type 2 diabetes mellitus with hyperglycemia Umbilical hernia Functional capacity: uses cane/walker Patient : No Family History: Family History (Last Reviewed 01/17/21 @ 10:55 by Rufina Go RN) Father Medical history unknown Mother Diabetes Hypertension Surgical History: Surgical History (Last Reviewed 01/17/21 @ 10:56 by Rufina Go RN) History of hemicolectomy History of incisional hernia repair History of pacemaker Social History: Social History (Last Reviewed 12/27/20 @ 13:33 by Glenroy Jerez) Living Situation History: Household Members: Family Housing: House Are you a primary health care assistant to a significant other at home: No Do you presently have visiting nurse or other home services: No Alcohol History: Alcohol intake: never Alcohol History Details: Alcohol intake frequency: does not drink Substance Use History: Use of substances other than those prescribed or required for medical reasons: No Domestic Abuse History: Have you been hit, kicked, punched, or otherwise hurt by someone within the past year? If so, by whom?: No Do you feel safe in your current relationship?: No Healthcare Practices: [employer] Healthcare Practices: Orthodoxy/ Religion Nutrition Assessment: Recently lost weight without trying: Yes How much weight loss: 24-33 pounds Eating poorly because of decreased appetite: Yes Nutrition screen score: 6 Nutrition Risks: Acute nausea or vomiting Patient : No : No Poor oral hygiene: No Occupation Assessmet: service: No Current occupational status: retired Oncology Screenings - ECOG Performance Status ECOG Performance Status: 1 Home Medications and Allergies Current Medications: Current Medications Generic Name Dose Route Start Last Admin Trade Name Freq PRN Reason Stop Dose Admin Dexamethasone Sodium Phosphate 12 mg in 50 mls @ 200 mls/hr 08/01/21 00:00 08/01/21 11:47 Decadron IV 08/01/21 23:59 Infused ONCE ERWIN Infusion Ondansetron HCl 16 mg in 50 mls @ 200 mls/hr 08/01/21 00:00 08/01/21 11:26 Zofran IV 08/01/21 23:59 Infused ONCE ERWIN Infusion Paclitaxel/Albumin ( 40 mls @ 80 mls/hr 08/01/21 00:00 08/01/21 12:46 Nanoparticle) 200 mg/ IV IV 08/01/21 23:59 Infused Miscellaneous Supplies ONCE ERWIN Infusion Gemcitabine HCl 1,590 mg/ 291.817 mls @ 583.684 mls/hr 08/01/21 11:30 08/01/21 13:18 Sodium Chloride IV Infused ONCE ERWIN Infusion Home Medications Medication Instructions Recorded Confirmed Type carbamazepine 200 mg tablet 200 mg PO DAILY 10/30/20 07/21/21 History budesonide-formoterol HFA 160 2 puff INHALATION BID 11/19/20 07/21/21 History mcg-4.5 mcg/actuation aerosol inhaler lancets 30 gauge #100 ea 02/21/21 07/21/21 History metformin 500 mg tablet,extended 500 mg PO BID 02/21/21 07/21/21 History release 24 hr blood sugar diagnostic #10 ea 03/13/21 07/21/21 History food supplemt, lactose-reduced ea PO 07/14/21 07/21/21 History (Ensure) multivitamin with folic acid 400 1 tab PO BEDTIME 07/21/21 07/21/21 History mcg tablet (Daily-Eve (with folic acid)) Allergies Allergy/AdvReac Type Severity Reaction Status Date / Time No Known Allergies Allergy Verified 07/31/21 10:35 Exam Vital signs: Vital Signs Temp 98.1 F 08/01/21 10:17 Pulse 71 08/01/21 10:17 Resp 18 08/01/21 10:17 BP 142/70 H 08/01/21 10:17 Pulse Ox 98 08/01/21 10:17 Intake & Output 07/31/21 08/01/21 08/01/21 18:59 06:59 18:59 Intake Total 431.817 / 431.817 Balance 431.817 / 431.817 Intake: Intake, IV Amount 431.817 / 431.817 Gemcitabine HCl 1,590 mg In 0.9 291.817 / 291.817 % Sodium Chloride 250 ml @ 583 .684 mls/hr IV ONCE ERWIN Rx#: [id number] Ondansetron HCL/NS 16 mg In 50 50 / 50 ml @ 200 mls/hr IV ONCE ERWIN Rx# :[id number] PACLitaxel Protein-Bound 200 mg 40 / 40 In Container,Empty 0 ml @ 80 mls/hr IV ONCE ERWIN Rx#: [id number] dexAMETHasone sod phosphate/NS 50 / 50 12 mg In 50 ml @ 200 mls/hr IV ONCE ERWIN Rx#:[id number] Other: Weight 59.5 kg [place] Weight in Grams 28159 Weight 59.5 kg Body Mass Index 25.3 - Constitutional Present: no acute distress, mild distress - Routine HEENT Exam Head: Present: normal inspection - Routine Neck Exam Present: full ROM - Routine Respiratory Exam Present: CTAB - Routine Cardiovascular Exam Cardiovascular: Present: RRR, S1, S2 - Routine Abdominal Exam Present: soft, tenderness. Absent: nontender - Routine Rectal Exam Patient deferred: digital exam - Routine Extremities Exam Present: nontender - Routine Back/Spine/Pelvis Exam Back/Spine: Present: full ROM - Routine Skin Exam Present: intact - Routine Neurological Exam Present: alert, oriented X3 - Routine Psychiatric Exam Present: normal affect Data - Labs CBC & Chem 7: 08/01/21 10:00 08/01/21 10:00 Labs: 11/28/20 12:04 CA 19-9 [Carbohydrate Antigen 19-9] Routine Complete Blood Count Auto Diff Routine Comprehensive Met. Panel Routine PT with INR [Prothrombin Time INR] Routine 12/02/20 00:00 Acetaminophen [Tylenol] 650 mg PO ONCE dexAMETHasone [Decadron] 12 mg PO ONCE ondansetron HCL/NS [Zofran] 16 mg in 50 ml IV ONCE 12/11/20 13:58 Complete Blood Count Auto Diff Routine Comprehensive Met. Panel Routine PT with INR [Prothrombin Time INR] Routine 12/12/20 00:00 Acetaminophen [Tylenol] 650 mg PO ONCE dexAMETHasone [Decadron] 12 mg PO ONCE ondansetron HCL/NS [Zofran] 16 mg in 50 ml IV ONCE Laboratory Last Values WBC 4.8 X10*3/uL (4.8-10.8) 12/11/20 13:58 RBC 4.57 X10*6/uL (4.20-5.50) 12/11/20 13:58 Hgb 13.1 g/dl (12.0-16.0) 12/11/20 13:58 Hct 41.0 % (37-47) 12/11/20 13:58 MCV 89.7 fL (80-98) 12/11/20 13:58 MCH 28.7 pg (27.0-33.0) 12/11/20 13:58 MCHC 32.0 g/dl (31.0-35.0) 12/11/20 13:58 RDW 12.6 % (11.0-16.0) 12/11/20 13:58 Plt Count 144 X10*3/uL (160-400) L 12/11/20 13:58 MPV 10.3 fL (9.4-12.3) 12/11/20 13:58 Immature Gran % (Auto) 0.4 % (0.0-0.4) 12/11/20 13:58 Neut % (Auto) 69.7 % (45-73) 12/11/20 13:58 Lymph % (Auto) 16.5 % (20-40) L 12/11/20 13:58 [place] % (Auto) 9.5 % (2-11) 12/11/20 13:58 Eos % (Auto) 3.5 % (0-4) 12/11/20 13:58 Baso % (Auto) 0.4 % (0-2) 12/11/20 13:58 Lymph # (Auto) 0.8 X10*3/uL (1.2-4.9) L 12/11/20 13:58 [place] # (Auto) 0.5 X10*3/uL (0.1-1.2) 12/11/20 13:58 Eos # (Auto) 0.2 X10*3/uL (0.0-0.4) 12/11/20 13:58 Baso # (Auto) 0.0 X10*3/uL (0.0-0.2) 12/11/20 13:58 Abs Immat Gran (auto) 0.02 X10*3/uL (0.00-0.03) 12/11/20 13:58 Absolute Neuts (auto) 3.4 X10*3/uL (2.0-8.3) 12/11/20 13:58 Absolute Nucleated RBC 0.000 X10*3/uL (0.0-0.012) 12/11/20 13:58 Nucleated RBC % (auto) 0.0 /100WBC (0.0-0.2) 12/11/20 13:58 PT 14.8 SEC (10.8-13.0) H D 12/11/20 13:58 INR 1.2 (0.9-1.1) H 12/11/20 13:58 Sodium 135 mmol/L (135-145) 12/11/20 13:58 Potassium 4.0 mmol/l (3.3-5.1) 12/11/20 13:58 Chloride 99 mmol/L (96-108) 12/11/20 13:58 Carbon Dioxide 26 mmol/L (22-29) 12/11/20 13:58 Anion Gap 14 (12-20) 12/11/20 13:58 BUN 12 mg/dL (9-16) 12/11/20 13:58 Creatinine 0.97 mg/dL (0.5-1.4) 12/11/20 13:58 Estim Creat Clear Calc 44.5 12/11/20 13:58 Estimated GFR 57 12/11/20 13:58 Random Glucose 181 mg/dL (60-115) H 12/11/20 13:58 Calcium 8.6 mg/dL (8.4-10.2) D 12/11/20 13:58 Total Bilirubin 0.3 mg/dL (0.0-1.0) 12/11/20 13:58 AST 79 U/L (5-31) H 12/11/20 13:58 ALT 59 U/L (0-31) H 12/11/20 13:58 Alkaline Phosphatase 62 U/L (39-117) 12/11/20 13:58 Total Protein 7.3 g/dL (6.5-8.0) 12/11/20 13:58 Albumin 4.3 g/dL (3.5-5.0) 12/11/20 13:58 CA 19-9 Antigen 4855 U/mL (<34) H 11/28/20 12:04 Assessment and Plan Patient Active problem list reviewed?: Yes (1) Pancreatic carcinoma Status: Acute Assessment and plan: This is a pleasant 70 year-old lady who presents with a couple of months history of abdominal pain that recently worsened. CT scan of the abdomen revealed: New mass in the head, neck and body the pancreas measuring 4.5 x 6.5 cm worrisome for neoplasm. New bilateral pulmonary nodules. Upper abdominal varices. Large esophageal hernia or intrathoracic stomach. Diverticulosis of the colon. Probable small uterine fibroid. Concern was for pancreatic cancer. Tumor marker Ca 19/9 is :4524. Biopsy was done on 11/12. Pathology revealed: Positive for atypical mucinous neoplasm. Moderately cellular specimen consisting of sheets of mucinous epithelium with cytologic atypia characterized by loss of clarity an irregularly shaped nuclei with Dr. chromatin in irregular nuclear membrane. Differential diagnosis includes an adenocarcinoma, mucinous cystic neoplasm and intraductal papillary mucinous neoplasm. I will proceed with a PET scan for further evaluation. This was done on 12/03, and revealed: Mild FDG activity in the pancreatic mass involving the head and adjacent pancreatic body corresponding to the recently biopsied malignancy. Multiple predominantly subcentimeter pulmonary nodules are present throughout the lungs likely represent metastases. Most of these are too small to be characterized on the PET images but the largest shows FDG activity. No additional abnormality suspicious for metastatic or other malignant lesions are noted. Chronic left posterior parietal cerebral infarction Large hiatal hernia.. My plan was to proceed with systemic chemotherapy. She has been started on gemcitabine and Abraxane based regimen. She had 3 cycles. Repeat imaging from 04/04: CT abdomen: No appreciable change in the mass in the body of the pancreas from October [address] chest: Multiple bilateral pulmonary nodules not appreciably changed from previous PET/CT scan November 2020. Enlarged heart. Large esophageal hernia or intrathoracic stomach. I discussed the CT scan results with her, told her that even though there has not been much decrease in size of the tumor things do appear stable. Stable disease is considered a response to treatment. Hopefully things will decrease with the continued chemotherapy. She has been tolerating it well. She complains of intermittent diarrhea, after chemotherapy. CT scan of the abdomen from April 04: No appreciable change in the mass in the body of the pancreas from October [address] chest from April 04: Multiple bilateral pulmonary nodules not appreciably changed from previous PET/CT scan November 2020. Enlarged heart. Large esophageal hernia or intrathoracic stomach. PLAN: She is here for her 9th chemotherapy treatment. Will complete this cycle and then re-stage her with another CT scan. Will follow-up on the tumor marker as well. I will see her back in a month's time, All her and her son's questions were answered to their satisfaction. Thanks, CC: Dr. Lancaster. - Time Spent With Patient Time Spent with Patient (in minutes): 30
[2021-08-14 11:49] LABS: MANUAL DIFF FLAG NO
[2021-08-14 12:05] LABS: Basophils Percent Auto 0.3 % (0-2); Eosinophils Absolute Auto 0.7 X10*3/uL (0.0-0.4); Eosinophils Percent Auto 11.4 % (0-4); Hemoglobin 10.9 g/dl (12.0-16.0); Imm Gran Abs Auto 0.03 X10*3/uL (0.00-0.03); Imm Gran Pct Auto 0.5 % (0.0-0.4); Lymphocytes Absolute Auto 1.2 X10*3/uL (1.2-4.9); Lymphocytes Percent Auto 20.2 % (20-40); Mean Corpuscular HGB Conc 31.1 g/dl (31.0-35.0); Mean Corpuscular Hemoglobin 29.3 pg (27.0-33.0); Mean Corpuscular Volume 94.1 fL (80-98); Mean Platelet Volume 10.1 fL (9.4-12.3); Monocytes Absolute Auto 0.7 X10*3/uL (0.1-1.2); Monocytes Percent Auto 11.4 % (2-11); Neutrophils Absolute Auto 3.4 X10*3/uL (2.0-8.3); Neutrophils Percent Auto 56.2 % (45-73); Platelet Count 118 X10*3/uL (160-400); Red Blood Count 3.72 X10*6/uL (4.20-5.50); Red Cell Distribution Width 15.6 % (11.0-16.0)
[2021-08-14 12:14] LABS: Alanine Aminotransferase 46 U/L (0-31); Alkaline Phosphatase 60 U/L (39-117); Anion Gap 12 (12-20); Aspartate Amino Transferase 60 U/L (5-31); Bilirubin Total 0.3 mg/dL (0.0-1.0); Blood Urea Nitrogen 15 mg/dL (9-16); Calcium 9.4 mg/dL (8.4-10.2); Carbon Dioxide 27 mmol/L (22-29); Chloride 108 mmol/L (96-108); Creatinine Clr Calc Pharmacy 54.1; Estimated Glomerular Filt Rate > 60; Glucose Random 131 mg/dL (60-115); Potassium 4.6 mmol/L (3.3-5.1); Sodium 142 mmol/L (135-145); Total Protein 6.6 g/dL (6.5-8.0)
[2021-08-15 10:12] VITALS: BP 148/64; PULSE 70; RESP 16; TEMP 35.9; O2SAT 98; BMI 25.5
[2021-08-15] MEDS: dexAMETHasone sod phosphate/NS 12 MG/50 ML PIGGYBACK 200 MG IV (10:46)
--- NOTE | 2021-08-15 13:26 | MHC.HEMONC ---
Patient present C9 D15 abraxane and gemcitabine, patient sebastian. well follow up in 2 weeks.
[2021-08-28 11:18] LABS: MANUAL DIFF FLAG NO
[2021-08-28 11:45] LABS: Alanine Aminotransferase 35 U/L (0-31); Albumin Level 4.1 g/dL (3.5-5.0); Alkaline Phosphatase 55 U/L (39-117); Anion Gap 9 (12-20); Aspartate Amino Transferase 27 U/L (5-31); Bilirubin Total 0.3 mg/dL (0.0-1.0); Blood Urea Nitrogen 19 mg/dL (9-16); Calcium 9.3 mg/dL (8.4-10.2); Carbon Dioxide 28 mmol/L (22-29); Chloride 106 mmol/L (96-108); Estimated Glomerular Filt Rate > 60; Glucose Random 143 mg/dL (60-115); Potassium 4.2 mmol/L (3.3-5.1); Sodium 139 mmol/L (135-145); Total Protein 6.9 g/dL (6.5-8.0)
[2021-08-28 11:57] LABS: Basophils Percent Auto 0.2 % (0-2); Eosinophils Absolute Auto 0.7 X10*3/uL (0.0-0.4); Eosinophils Percent Auto 10.5 % (0-4); Hematocrit 36.7 % (37-47); Hemoglobin 11.7 g/dl (12.0-16.0); Imm Gran Abs Auto 0.03 X10*3/uL (0.00-0.03); Imm Gran Pct Auto 0.5 % (0.0-0.4); Lymphocytes Absolute Auto 1.2 X10*3/uL (1.2-4.9); Mean Corpuscular HGB Conc 31.9 g/dl (31.0-35.0); Mean Corpuscular Hemoglobin 29.6 pg (27.0-33.0); Mean Corpuscular Volume 92.9 fL (80-98); Mean Platelet Volume 10.1 fL (9.4-12.3); Monocytes Absolute Auto 0.8 X10*3/uL (0.1-1.2); Monocytes Percent Auto 12.7 % (2-11); Neutrophils Absolute Auto 3.6 X10*3/uL (2.0-8.3); Neutrophils Percent Auto 57.1 % (45-73); Platelet Count 127 X10*3/uL (160-400); Red Blood Count 3.95 X10*6/uL (4.20-5.50); Red Cell Distribution Width 15.2 % (11.0-16.0); White Blood Count 6.3 X10*3/uL (4.8-10.8)
[2021-08-29 10:00] VITALS: BP 135/60; PULSE 76; RESP 18; TEMP 36.5; O2SAT 99; BMI 25.3
[2021-08-29] MEDS: dexAMETHasone sod phosphate/NS 12 MG/50 ML PIGGYBACK 200 MG IV (10:42)
[2021-08-29] MEDS: diphenhydrAMINE HCL 50 MG/ML VIAL 25 MG IVPUSH (10:49)
--- NOTE | 2021-08-29 11:12 | MHC.HEMONC ---
Pt here for C10 D1 Paclitaxel/Gemcitabine . Labs drawn yesterday 08/28/21 reviewed-okay to receive treatment today. Peripheral IV stared in right forearm, #24. 0.9% NS infusing. Pre medicated with Zofran 16mg IV, Decadron 12mg IV, Benadryl 25mg IV. Pt states she has occasional nausea, diarrhea and constipation. Continues with tingling in feet on occasion. Paclitaxel and Gemcitabine given as ordered-tolerated well. IV removed-no edema or redness at site. Discharge packet given.Follow up appointment scheduled.
--- NOTE | 2021-09-05 11:14 | MHC.HEMONC ---
oxycodone back ordered at [facility] on [address], sent oxycodone to [facility] on [address] in [place].Patient made aware in [place].
[2021-09-11 09:41] LABS: MANUAL DIFF FLAG NO
[2021-09-11 09:49] LABS: Basophils Percent Auto 0.4 % (0-2); Eosinophils Absolute Auto 0.6 X10*3/uL (0.0-0.4); Hematocrit 37.3 % (37-47); Hemoglobin 11.8 g/dl (12.0-16.0); Imm Gran Abs Auto 0.01 X10*3/uL (0.00-0.03); Imm Gran Pct Auto 0.2 % (0.0-0.4); Lymphocytes Absolute Auto 0.9 X10*3/uL (1.2-4.9); Lymphocytes Percent Auto 19.7 % (20-40); Mean Corpuscular HGB Conc 31.6 g/dl (31.0-35.0); Mean Corpuscular Hemoglobin 29.4 pg (27.0-33.0); Mean Corpuscular Volume 92.8 fL (80-98); Mean Platelet Volume 9.8 fL (9.4-12.3); Monocytes Absolute Auto 0.5 X10*3/uL (0.1-1.2); Monocytes Percent Auto 10.7 % (2-11); Neutrophils Absolute Auto 2.5 X10*3/uL (2.0-8.3); Platelet Count 112 X10*3/uL (160-400); Red Blood Count 4.02 X10*6/uL (4.20-5.50); Red Cell Distribution Width 14.7 % (11.0-16.0); White Blood Count 4.6 X10*3/uL (4.8-10.8)
[2021-09-11 10:10] LABS: Alanine Aminotransferase 30 U/L (0-31); Albumin Level 4.1 g/dL (3.5-5.0); Alkaline Phosphatase 62 U/L (39-117); Anion Gap 10 (12-20); Aspartate Amino Transferase 26 U/L (5-31); Bilirubin Total 0.3 mg/dL (0.0-1.0); Blood Urea Nitrogen 14 mg/dL (9-16); Calcium 9.2 mg/dL (8.4-10.2); Carbon Dioxide 28 mmol/L (22-29); Chloride 107 mmol/L (96-108); Creatinine Clr Calc Pharmacy 45.8; Estimated Glomerular Filt Rate > 60; Glucose Random 175 mg/dL (60-115); Potassium 4.3 mmol/L (3.3-5.1); Sodium 141 mmol/L (135-145); Total Protein 6.9 g/dL (6.5-8.0)
--- NOTE | 2021-09-11 13:56 | HO.HEMONCPA ---
[facility] WAS APPROVED FOR ABRAXANE (PACLITAXEL) DOS; 06/10/21 - 12/06/21 . AUTH#[id number]
[2021-09-12 10:17] VITALS: BP 117/76; PULSE 67; RESP 18; TEMP 36.4; O2SAT 97; BMI 25.6
[2021-09-12] MEDS: diphenhydrAMINE HCL 50 MG/ML VIAL 25 MG IVPUSH (10:25)
[2021-09-12] MEDS: Acetaminophen 325 MG TABLET 650 MG PO (10:25)
[2021-09-12] MEDS: dexAMETHasone sod phosphate/NS 12 MG/50 ML PIGGYBACK 200 MG IV (10:26)
--- NOTE | 2021-09-12 12:14 | PM.HEMONCPN ---
Medical Summary - Medical Summary Date of Service: 09/12/21 Chief complaint: Follow-up for: Pancreatic carcinoma. Medical Summary: DIAGNOSIS: Concern is for pancreatic cancer. CURRENT THERAPY: Here for gemcitabine Abraxane., cycle 10 day 1. Interval History Interval history: This is a pleasant 70-year-old lady, here for a follow-up visit. She tells me she has been feeling well. Overall she is much better. Sometimes she feels bit tired. No headache no dizziness. Denies any fever nor chills. She denies any chest pain or trouble breathing. Sometimes, she has some nausea but no vomiting. The anti emetic helps. Abdominal pain comes and goes. It is located in the mid abdominal. It is less now. The pain medicines help. She gets intermittent diarrhea after the treatment. No gross blood in the stools. She does have Imodium that she can take in that case. Appetite is fair. Her weight is stable. She is actually quite independent. She is in excellent spirits. Rest of the review of systems is unremarkable. Previous history: She was seen in house. She presented to the hospital with complaints of abdominal pain. She complained of pain all over , on her abdomen, back, chest, legs. She reported that the abdominal pain had been going on for 2 months but worsened over the past 3 days. The pain is generalized abdominal pain, 8/10, intermittent, nonradiating, associated with nausea and vomiting. She also had occasional chills with no fever. She reported the pain to be just generalized discomfort. When asked about weight loss she reports about 1-2 lb of weight loss but not more. She also complained of years of shortness of breath with no change. She denied urinary symptoms and no lower extremity edema. Patient also complained of bloating, and low appetite. Her temp was 98.6?, pulse rate of 69, respiratory rate of 19, and oxygen saturation of 95% on room air. Labs: significant for PT of 27.7 INR of 2.3, sodium of 130, BUN of 11 with creatinine of 0.77, troponin 38 trended down to 37, BNP of 259, CT abdomen showed: New mass in the head neck and body of the pancreas measuring 4.5 x 6.5 cm worrisome for neoplasm. New bilateral pulmonary nodules. Upper abdominal varices. Large esophageal hernia, or intrathoracic stomach. Diverticulosis of the colon. Probable small uterine fibroid. Hospital course: The patient was evaluated for abdominal pain. I recommended, Biopsy of the pancreas. Discussed with IR who recommended holding both aspirin and warfarin for 3 days prior to procedure which was to be scheduled for next Wednesday. After discussing with the patient, she preferred to come back at the time of the biopsy. Her INR of 1.6 at the day of discharge. She was noted to have hyponatremia which seems to be chronic around 130-131. BNP was noted to be mildly elevated around 200 which was the baseline for her, looking back at her previous readings. Not in acute CHF exacerbation. les. Upper abdominal varices. Large esophageal hernia Past medical history: Diabetes, COPD, CVA, hypertension. Review of Systems - Constitutional Reports no additional constitutional complaints, Reports fatigue, Denies fever(s), Reports headache(s), Reports weakness, Denies weight gain - Eyes Reports no additional eye complaints - ENT Reports no additional ear, nose, mouth, and throat complaints - Cardiovascular Reports no additional cardiovascular complaints - Respiratory Reports no additional respiratory complaints - Gastrointestinal Reports no additional gastrointestinal complaints - Genitourinary Reports no additional female genitourinary complaints - Musculoskeletal Reports no additional musculoskeletal complaints - Integumentary/Breasts Skin/Breast: Reports no additional skin complaints - Neurologic Reports no additional neurologic complaints, Denies loss of vision, Reports weakness - Psychiatric Reports no additional psychiatric complaints - Endocrine Reports no additional endocrine complaints - Hematologic/Lymphatic Reports no additional hematologic/lymphatic complaints - Allergic/Immunologic Reports no additional allergic/immunologic complaints [facility] Medical History: Medical History (Last Updated 08/13/21 @ 12:48 by Malika Mayer MD) Anxiety and depression Biventricular ICD (implantable cardioverter-defibrillator) in place Cardiomyopathy Congestive heart failure COPD (chronic obstructive pulmonary disease) Coronary artery disease Current use of anticoagulant therapy CVA (cerebral vascular accident) Diverticulitis Esophageal hernia GERD (gastroesophageal reflux disease) History of renal calculi HTN (hypertension) Hypercholesterolemia Hyponatremia Osteopenia Type 2 diabetes mellitus with hyperglycemia Umbilical hernia Functional capacity: uses cane/walker Patient : No Family History: Family History (Last Reviewed 01/17/21 @ 10:55 by Rufina Go RN) Father Medical history unknown Mother Diabetes Hypertension Surgical History: Surgical History (Last Reviewed 01/17/21 @ 10:56 by Rufina Go RN) History of hemicolectomy History of incisional hernia repair History of pacemaker Social History: Social History (Last Reviewed 12/27/20 @ 13:33 by CHELO Retana) Living Situation History: Household Members: Family Housing: House Are you a primary career resource specialist to a significant other at home: No Do you presently have visiting nurse or other home services: No Alcohol History: Alcohol intake: never Alcohol History Details: Alcohol intake frequency: does not drink Tobacco History: Patient Tobacco Use Status: Never used Tobacco e-Cigarette/Vaping Use: Never Used Substance Use History: Use of substances other than those prescribed or required for medical reasons: No Domestic Abuse History: Have you been hit, kicked, punched, or otherwise hurt by someone within the past year? If so, by whom?: No Do you feel safe in your current relationship?: No Healthcare Practices: Church Healthcare Practices: Buddhist/ Latter-Day Nutrition Assessment: Recently lost weight without trying: Yes How much weight loss: 24-33 pounds Eating poorly because of decreased appetite: Yes Nutrition screen score: 6 Nutrition Risks: Acute nausea or vomiting Patient : No : No Poor oral hygiene: No Occupation Assessmet: service: No Current occupational status: retired Oncology Screenings - ECOG Performance Status ECOG Performance Status: 1 Home Medications and Allergies Current Medications: Current Medications Acetaminophen (Acetaminophen 325 Mg Tablet) 650 mg PO ONCE ERWIN Stop: 09/12/21 23:59 Last Admin: 09/12/21 10:25 Dose: 650 mg Documented by: Diphenhydramine HCl (Diphenhydramine Hcl 50 Mg/Ml Vial) 25 mg IVPUSH ONCE ERWIN Stop: 09/12/21 23:59 Last Admin: 09/12/21 10:25 Dose: 25 mg Documented by: Ondansetron HCl (Zofran) 16 mg in 50 mls @ 200 mls/hr IV ONCE ERWIN Stop: 09/12/21 23:59 Last Infusion: 09/12/21 10:40 Dose: Infused Documented by: Paclitaxel/Albumin ( Nanoparticle) 200 mg/ IV Miscellaneous Supplies 40 mls @ 80 mls/hr IV ONCE ERWIN Stop: 09/12/21 23:59 Last Admin: 09/12/21 11:27 Dose: 80 mls/hr Documented by: Gemcitabine HCl 1,000 mg/Gemcitabine HCl 600 mg/ Sodium Chloride 292.105 mls @ 584.21 mls/hr IV ONCE ERWIN Stop: 09/12/21 23:59 Home Medications Medication Instructions Recorded Confirmed Type carbamazepine 200 mg tablet 200 mg PO DAILY 10/30/20 07/21/21 History budesonide-formoterol HFA 160 2 puff INHALATION BID 11/19/20 07/21/21 History mcg-4.5 mcg/actuation aerosol inhaler lancets 30 gauge #100 ea 02/21/21 07/21/21 History metformin 500 mg tablet,extended 500 mg PO BID 02/21/21 07/21/21 History release 24 hr food supplemt, lactose-reduced ea PO 07/14/21 07/21/21 History (Ensure) multivitamin with folic acid 400 1 tab PO BEDTIME 07/21/21 07/21/21 History mcg tablet (Daily-Eve (with folic acid)) Allergies Allergy/AdvReac Type Severity Reaction Status Date / Time No Known Allergies Allergy Verified 09/11/21 10:35 Exam Vital signs: Vital Signs Temp 97.5 F 09/12/21 10:17 Pulse 67 09/12/21 10:17 Resp 18 09/12/21 10:17 BP 117/76 09/12/21 10:17 Pulse Ox 97 09/12/21 10:17 Intake & Output 09/11/21 09/12/21 09/12/21 18:59 06:59 18:59 Intake Total 100 / 100 Balance 100 / 100 Intake: Intake, IV Amount 100 / 100 Ondansetron HCL/NS 16 mg In 50 50 / 50 ml @ 200 mls/hr IV ONCE ERWIN Rx# :[id number] dexAMETHasone sod phosphate/NS 50 / 50 12 mg In 50 ml @ 200 mls/hr IV ONCE ERWIN Rx#:[id number] Other: Weight 60.1 kg Weight in Grams [id number] Weight 60.1 kg Body Mass Index 25.6 - Constitutional Present: no acute distress, mild distress - Routine HEENT Exam Head: Present: normal inspection Eye: Present: normal appearance ENT: Present: mucous membranes moist - Routine Neck Exam Present: full ROM - Routine Respiratory Exam Present: CTAB - Routine Cardiovascular Exam Cardiovascular: Present: RRR, S1, S2 - Routine Abdominal Exam Present: soft, tenderness. Absent: nontender - Routine Rectal Exam Patient deferred: digital exam - Routine Extremities Exam Present: nontender - Routine Back/Spine/Pelvis Exam Back/Spine: Present: full ROM - Routine Skin Exam Present: intact - Routine Neurological Exam Present: alert, oriented X3 - Routine Psychiatric Exam Present: normal affect Data - Labs CBC & Chem 7: 09/11/21 09:39 09/11/21 09:39 Labs: 11/28/20 12:04 CA 19-9 [Carbohydrate Antigen 19-9] Routine Complete Blood Count Auto Diff Routine Comprehensive Met. Panel Routine PT with INR [Prothrombin Time INR] Routine 12/02/20 00:00 Acetaminophen [Tylenol] 650 mg PO ONCE dexAMETHasone [Decadron] 12 mg PO ONCE ondansetron HCL/NS [Zofran] 16 mg in 50 ml IV ONCE 12/11/20 13:58 Complete Blood Count Auto Diff Routine Comprehensive Met. Panel Routine PT with INR [Prothrombin Time INR] Routine 12/12/20 00:00 Acetaminophen [Tylenol] 650 mg PO ONCE dexAMETHasone [Decadron] 12 mg PO ONCE ondansetron HCL/NS [Zofran] 16 mg in 50 ml IV ONCE Laboratory Last Values WBC 4.8 X10*3/uL (4.8-10.8) 12/11/20 13:58 RBC 4.57 X10*6/uL (4.20-5.50) 12/11/20 13:58 Hgb 13.1 g/dl (12.0-16.0) 12/11/20 13:58 Hct 41.0 % (37-47) 12/11/20 13:58 MCV 89.7 fL (80-98) 12/11/20 13:58 MCH 28.7 pg (27.0-33.0) 12/11/20 13:58 MCHC 32.0 g/dl (31.0-35.0) 12/11/20 13:58 RDW 12.6 % (11.0-16.0) 12/11/20 13:58 Plt Count 144 X10*3/uL (160-400) L 12/11/20 13:58 MPV 10.3 fL (9.4-12.3) 12/11/20 13:58 Immature Gran % (Auto) 0.4 % (0.0-0.4) 12/11/20 13:58 Neut % (Auto) 69.7 % (45-73) 12/11/20 13:58 Lymph % (Auto) 16.5 % (20-40) L 12/11/20 13:58 Callaway % (Auto) 9.5 % (2-11) 12/11/20 13:58 Eos % (Auto) 3.5 % (0-4) 12/11/20 13:58 Baso % (Auto) 0.4 % (0-2) 12/11/20 13:58 Lymph # (Auto) 0.8 X10*3/uL (1.2-4.9) L 12/11/20 13:58 Callaway # (Auto) 0.5 X10*3/uL (0.1-1.2) 12/11/20 13:58 Eos # (Auto) 0.2 X10*3/uL (0.0-0.4) 12/11/20 13:58 Baso # (Auto) 0.0 X10*3/uL (0.0-0.2) 12/11/20 13:58 Abs Immat Gran (auto) 0.02 X10*3/uL (0.00-0.03) 12/11/20 13:58 Absolute Neuts (auto) 3.4 X10*3/uL (2.0-8.3) 12/11/20 13:58 Absolute Nucleated RBC 0.000 X10*3/uL (0.0-0.012) 12/11/20 13:58 Nucleated RBC % (auto) 0.0 /100WBC (0.0-0.2) 12/11/20 13:58 PT 14.8 SEC (10.8-13.0) H D 12/11/20 13:58 INR 1.2 (0.9-1.1) H 12/11/20 13:58 Sodium 135 mmol/L (135-145) 12/11/20 13:58 Potassium 4.0 mmol/l (3.3-5.1) 12/11/20 13:58 Chloride 99 mmol/L (96-108) 12/11/20 13:58 Carbon Dioxide 26 mmol/L (22-29) 12/11/20 13:58 Anion Gap 14 (12-20) 12/11/20 13:58 BUN 12 mg/dL (9-16) 12/11/20 13:58 Creatinine 0.97 mg/dL (0.5-1.4) 12/11/20 13:58 Estim Creat Clear Calc 44.5 12/11/20 13:58 Estimated GFR 57 12/11/20 13:58 Random Glucose 181 mg/dL (60-115) H 12/11/20 13:58 Calcium 8.6 mg/dL (8.4-10.2) D 12/11/20 13:58 Total Bilirubin 0.3 mg/dL (0.0-1.0) 12/11/20 13:58 AST 79 U/L (5-31) H 12/11/20 13:58 ALT 59 U/L (0-31) H 12/11/20 13:58 Alkaline Phosphatase 62 U/L (39-117) 12/11/20 13:58 Total Protein 7.3 g/dL (6.5-8.0) 12/11/20 13:58 Albumin 4.3 g/dL (3.5-5.0) 12/11/20 13:58 CA 19-9 Antigen 4855 U/mL (<34) H 11/28/20 12:04 Assessment and Plan Patient Active problem list reviewed?: Yes (1) Pancreatic carcinoma Status: Acute Assessment and plan: This is a pleasant 70 year-old lady who presents with a couple of months history of abdominal pain that recently worsened. CT scan of the abdomen revealed: New mass in the head, neck and body the pancreas measuring 4.5 x 6.5 cm worrisome for neoplasm. New bilateral pulmonary nodules. Upper abdominal varices. Large esophageal hernia or intrathoracic stomach. Diverticulosis of the colon. Probable small uterine fibroid. Concern was for pancreatic cancer. Tumor marker Ca 19/9 is :4524. Biopsy was done on 11/12. Pathology revealed: Positive for atypical mucinous neoplasm. Moderately cellular specimen consisting of sheets of mucinous epithelium with cytologic atypia characterized by loss of clarity an irregularly shaped nuclei with Dr. chromatin in irregular nuclear membrane. Differential diagnosis includes an adenocarcinoma, mucinous cystic neoplasm and intraductal papillary mucinous neoplasm. I will proceed with a PET scan for further evaluation. This was done on 12/03, and revealed: Mild FDG activity in the pancreatic mass involving the head and adjacent pancreatic body corresponding to the recently biopsied malignancy. Multiple predominantly subcentimeter pulmonary nodules are present throughout the lungs likely represent metastases. Most of these are too small to be characterized on the PET images but the largest shows FDG activity. No additional abnormality suspicious for metastatic or other malignant lesions are noted. Chronic left posterior parietal cerebral infarction Large hiatal hernia.. My plan was to proceed with systemic chemotherapy. She has been started on gemcitabine and Abraxane based regimen. After she had 3 cycles, he had CT scan. Repeat imaging from 04/04: CT abdomen: No appreciable change in the mass in the body of the pancreas from October [address] chest: Multiple bilateral pulmonary nodules not appreciably changed from previous PET/CT scan November 2020. Enlarged heart. Large esophageal hernia or intrathoracic stomach. I discussed the CT scan results with her, told her that even though there has not been much decrease in size of the tumor things do appear stable. Stable disease is considered a response to treatment. Hopefully things will decrease with the continued chemotherapy. She has been tolerating it well. She complains of intermittent diarrhea, after chemotherapy. CT scan of the abdomen from April 04: No appreciable change in the mass in the body of the pancreas from October [address] chest from April 04: Multiple bilateral pulmonary nodules not appreciably changed from previous PET/CT scan November 2020. Enlarged heart. Large esophageal hernia or intrathoracic stomach. She had a CT scan of the chest and abdomen on 08/22 which revealed: Previously described large 7 mm pulmonary nodules are smaller. No new pulmonary nodules are seen. A hypodense mass in the body of the pancreas and encasement surrounding the SMA is stable. The tail of the pancreas is not visualized, similar to previous study. No abnormal chest, abdomen and pelvic lymphadenopathy. Stable calcified left fibroid and right paramidline hernia containing fat and bowel loops. Moderate constipation. CA 19-9 down to 5 in May from 4855 in November. PLAN: She is here for her 10th chemotherapy treatment. Will complete another three cycles and then re-stage her with another CT scan. Will follow-up on the tumor marker as well. I will see her back in a month's time, All her and her son's questions were answered to their satisfaction. Thanks, CC: Dr. Lancaster. - Time Spent With Patient Time Spent with Patient (in minutes): 30
--- NOTE | 2021-09-12 13:33 | MHC.HEMONC ---
Pt here for C10 D15 Paclitaxel/Gemcitabine. Labs results reviewed-okay to receive treatment today. #24 angio inserted in right hand-blood return noted. 0.9% NS infusing. Pre medicated with tylenol 650mg orally, zofran 16mg IV, Decadron 12 mg IV, Benadryl 25mg IV .Pt states she has occasional diarrhea/constipation at times, had right hand pain a few days ago-none now, frequent headaches. Dr Cifuentes into see pt and notified of headaches. Paclitaxel/Gemcitabine IV given as ordered-tolerated well. IV removed from right hand-no edema or redness at site. Discharge packet given. Follow up appointment scheduled.
[2021-09-15 11:16] LABS: Carbohydrate Antigen 19-9 1878 U/mL (<34)
[2021-09-25 11:51] LABS: MANUAL DIFF FLAG NO
[2021-09-25 11:57] LABS: Basophils Percent Auto 0.4 % (0-2); Eosinophils Absolute Auto 0.5 X10*3/uL (0.0-0.4); Eosinophils Percent Auto 10.1 % (0-4); Hematocrit 37.1 % (37.0-47.0); Hemoglobin 11.7 g/dl (12.0-16.0); Imm Gran Abs Auto 0.01 X10*3/uL (0.00-0.03); Imm Gran Pct Auto 0.2 % (0.0-0.4); Lymphocytes Absolute Auto 0.9 X10*3/uL (1.2-4.9); Lymphocytes Percent Auto 17.9 % (20-40); Mean Corpuscular HGB Conc 31.5 g/dl (31.0-35.0); Mean Corpuscular Hemoglobin 29.9 pg (27.0-33.0); Mean Corpuscular Volume 94.9 fL (80.0-98.0); Mean Platelet Volume 10.1 fL (9.4-12.3); Monocytes Absolute Auto 0.6 X10*3/uL (0.1-1.2); Monocytes Percent Auto 10.9 % (2-11); Neutrophils Percent Auto 60.5 % (45-73); Platelet Count 116 X10*3/uL (160-400); Red Blood Count 3.91 X10*6/uL (4.20-5.50); Red Cell Distribution Width 14.6 % (11.0-16.0); White Blood Count 5.1 X10*3/uL (4.8-10.8)
[2021-09-25 12:30] LABS: Alanine Aminotransferase 29 U/L (0-31); Albumin Level 4.1 g/dL (3.5-5.0); Alkaline Phosphatase 61 U/L (39-117); Anion Gap 13 (12-20); Aspartate Amino Transferase 28 U/L (5-31); Bilirubin Total < 0.2 mg/dL (0.0-1.0); Blood Urea Nitrogen 17 mg/dL (9-16); Carbon Dioxide 27 mmol/L (22-29); Chloride 104 mmol/L (96-108); Creatinine Clr Calc Pharmacy 49.3; Estimated Glomerular Filt Rate > 60; Glucose Random 138 mg/dL (60-115); Potassium 4.8 mmol/L (3.3-5.1); Sodium 139 mmol/L (135-145); Total Protein 6.9 g/dL (6.5-8.0)
[2021-09-26 10:14] VITALS: BP 152/67; PULSE 69; RESP 18; TEMP 37; O2SAT 97; BMI 25.4
[2021-09-26] MEDS: dexAMETHasone 4 MG TABLET 8 MG PO (10:35)
[2021-09-26] MEDS: Acetaminophen 325 MG TABLET 650 MG PO (10:36)
--- NOTE | 2021-09-26 14:53 | MHC.HEMONC ---
Pt here for C11D1 Paclitaxel/Gemcitabine. Labs drawn yesterday reviewed-okay to receive treatament today. Pt states she continues with occasional constipation and diarrhea, occasional nausea and fatigue. States she continues with back pain-has some relief of pain with oxycodone and oxycontin. #24 angio inserted in right hand with blood return noted. Pre medicated with zofran, benadryl, decadron and tylenol. Paclitaxel and Gemcitabine given as ordered-tolerated well. Peripheral IV removed-no edema or redness at site. Follow up appointment scheduled. Discharge packet given.
[2021-10-09 10:55] LABS: Basophils Percent Auto 0.4 % (0-2); Hemoglobin 11.3 g/dl (12.0-16.0); MANUAL DIFF FLAG SCAN; PLT CLUMP 1; SCAN SMEAR FLAG 1
[2021-10-09 10:57] LABS: Eosinophils Absolute Auto 0.6 X10*3/uL (0.0-0.4); Eosinophils Percent Auto 10.4 % (0-4); Hematocrit 35.3 % (37.0-47.0); Imm Gran Abs Auto 0.01 X10*3/uL (0.00-0.03); Imm Gran Pct Auto 0.2 % (0.0-0.4); Lymphocytes Absolute Auto 0.8 X10*3/uL (1.2-4.9); Lymphocytes Percent Auto 15.1 % (20-40); Mean Corpuscular Hemoglobin 30.1 pg (27.0-33.0); Mean Corpuscular Volume 93.9 fL (80.0-98.0); Mean Platelet Volume 10.1 fL (9.4-12.3); Monocytes Absolute Auto 0.6 X10*3/uL (0.1-1.2); Neutrophils Absolute Auto 3.5 x10*3/uL (2.0-8.3); Neutrophils Percent Auto 62.9 % (45-73); Platelet Count 124 X10*3/uL (160-400); Red Blood Count 3.76 X10*6/uL (4.20-5.50); White Blood Count 5.6 X10*3/uL (4.8-10.8)
[2021-10-09 10:59] LABS: SLIDE REVIEW VERIFIED
[2021-10-09 11:15] LABS: Alanine Aminotransferase 30 U/L (0-31); Alkaline Phosphatase 59 U/L (39-117); Anion Gap 8 (12-20); Aspartate Amino Transferase 32 U/L (5-31); Bilirubin Total 0.2 mg/dL (0.0-1.0); Blood Urea Nitrogen 15 mg/dL (9-16); Calcium 8.9 mg/dL (8.4-10.2); Carbon Dioxide 27 mmol/L (22-29); Chloride 108 mmol/L (96-108); Creatinine Clr Calc Pharmacy 54.2; Estimated Glomerular Filt Rate > 60; Glucose Random 154 mg/dL (60-115); Potassium 3.9 mmol/L (3.3-5.1); Sodium 139 mmol/L (135-145); Total Protein 6.7 g/dL (6.5-8.0)
[2021-10-10 10:07] VITALS: BP 154/69; PULSE 82; RESP 18; TEMP 36.4; O2SAT 97; BMI 25.8
[2021-10-10] MEDS: Acetaminophen 325 MG TABLET 650 MG PO (10:43)
[2021-10-10] MEDS: dexAMETHasone 4 MG TABLET 8 MG PO (10:44)
--- NOTE | 2021-10-10 15:39 | MHC.HEMONC ---
Pt here for C11D15 Gemzar. Abraxane unavailable from stencil sprayer. Labs drawn 10/09/21 reviewed-okay to receive treatment today. Pt states she feels okay today. Continues with fatigue, occasional constipation/diarrhea. No nausea this cycle as yet. #22 angio inserted in right hand with blood return noted.Pre medicated with decadron, tylenol, zofran. Gemzar given as directed-tolerated well. Peripheral IV removed-no edema at site. Discharge packet given. Follow up appointment scheduled
[2021-10-23 10:51] LABS: MANUAL DIFF FLAG NO
[2021-10-23 10:56] LABS: Basophils Percent Auto 0.2 % (0-2); Eosinophils Absolute Auto 0.6 X10*3/uL (0.0-0.4); Eosinophils Percent Auto 8.9 % (0-4); Hematocrit 37.3 % (37.0-47.0); Hemoglobin 11.9 g/dl (12.0-16.0); Imm Gran Abs Auto 0.02 X10*3/uL (0.00-0.03); Imm Gran Pct Auto 0.3 % (0.0-0.4); Lymphocytes Absolute Auto 1.7 X10*3/uL (1.2-4.9); Lymphocytes Percent Auto 25.8 % (20-40); Mean Corpuscular HGB Conc 31.9 g/dl (31.0-35.0); Mean Corpuscular Hemoglobin 29.9 pg (27.0-33.0); Mean Corpuscular Volume 93.7 fL (80.0-98.0); Mean Platelet Volume 10.1 fL (9.4-12.3); Monocytes Absolute Auto 0.7 X10*3/uL (0.1-1.2); Monocytes Percent Auto 11.1 % (2-11); Neutrophils Absolute Auto 3.4 x10*3/uL (2.0-8.3); Neutrophils Percent Auto 53.7 % (45-73); Platelet Count 133 X10*3/uL (160-400); Red Blood Count 3.98 X10*6/uL (4.20-5.50); Red Cell Distribution Width 14.6 % (11.0-16.0); White Blood Count 6.4 X10*3/uL (4.8-10.8)
[2021-10-23 11:17] LABS: Alanine Aminotransferase 57 U/L (0-31); Albumin Level 4.1 g/dL (3.5-5.0); Alkaline Phosphatase 59 U/L (39-117); Anion Gap 12 (12-20); Aspartate Amino Transferase 54 U/L (5-31); Bilirubin Total 0.5 mg/dL (0.0-1.0); Blood Urea Nitrogen 17 mg/dL (9-16); Calcium 9.1 mg/dL (8.4-10.2); Carbon Dioxide 27 mmol/L (22-29); Chloride 104 mmol/L (96-108); Creatinine Clr Calc Pharmacy 50.7; Estimated Glomerular Filt Rate > 60; Glucose Random 136 mg/dL (60-115); Potassium 3.6 mmol/L (3.3-5.1); Sodium 139 mmol/L (135-145); Total Protein 6.9 g/dL (6.5-8.0)
--- NOTE | 2021-10-23 12:29 | MHC.HEMONC ---
Pt here for lab draw
[2021-10-24 09:26] VITALS: BP 153/68; PULSE 92; RESP 18; TEMP 36.7; O2SAT 98; BMI 24.8
[2021-10-24] MEDS: diphenhydrAMINE HCL 50 MG/ML VIAL 25 MG IVPUSH (10:16)
[2021-10-24] MEDS: Acetaminophen 325 MG TABLET 650 MG PO (10:16)
[2021-10-24] MEDS: dexAMETHasone sod phosphate/NS 12 MG/50 ML PIGGYBACK 200 MG IV (10:16)
--- NOTE | 2021-10-24 15:54 | MHC.HEMONC ---
Pt here for C12 D1 Gemcitabine. Abraxane continues to be unavailable. #22 angio inserted in right hand-blood return noted. Labs drawn 10/23/21 reviewed. Okay to receive treatment today. Pre medicated with Tylenol, decadron, zofran. Gemcitabine given as ordered-tolerated well. Dr Cifuentes into see pt. Pt states she has pain all over. Expiratory wheezes noted throughout lung hammer. Pt encouraged to use updraft when she goes home today.Peripheral IV removed-no edema at site. Follow up appointment scheduled. Discharge packet given.
[2021-11-06 10:53] LABS: MANUAL DIFF FLAG NO
[2021-11-06 11:04] LABS: Basophils Percent Auto 0.2 % (0-2); Eosinophils Absolute Auto 0.5 X10*3/uL (0.0-0.4); Hematocrit 37.9 % (37.0-47.0); Imm Gran Abs Auto 0.01 X10*3/uL (0.00-0.03); Imm Gran Pct Auto 0.2 % (0.0-0.4); Lymphocytes Absolute Auto 1.1 X10*3/uL (1.2-4.9); Lymphocytes Percent Auto 22.7 % (20-40); Mean Corpuscular HGB Conc 31.7 g/dl (31.0-35.0); Mean Corpuscular Volume 94.8 fL (80.0-98.0); Mean Platelet Volume 10.6 fL (9.4-12.3); Monocytes Absolute Auto 0.6 X10*3/uL (0.1-1.2); Monocytes Percent Auto 11.2 % (2-11); Neutrophils Absolute Auto 2.8 x10*3/uL (2.0-8.3); Neutrophils Percent Auto 55.7 % (45-73); Platelet Count 116 X10*3/uL (160-400); Red Cell Distribution Width 14.7 % (11.0-16.0)
[2021-11-06 11:21] LABS: Alanine Aminotransferase 30 U/L (0-31); Albumin Level 4.2 g/dL (3.5-5.0); Alkaline Phosphatase 63 U/L (39-117); Anion Gap 10 (12-20); Aspartate Amino Transferase 29 U/L (5-31); Bilirubin Total 0.3 mg/dL (0.0-1.0); Blood Urea Nitrogen 20 mg/dL (9-16); Calcium 9.6 mg/dL (8.4-10.2); Carbon Dioxide 30 mmol/L (22-29); Chloride 104 mmol/L (96-108); Creatinine Clr Calc Pharmacy 41.8; Estimated Glomerular Filt Rate 55; Glucose Random 138 mg/dL (60-115); Potassium 4.3 mmol/L (3.3-5.1); Sodium 140 mmol/L (135-145); Total Protein 7.3 g/dL (6.5-8.0)
[2021-11-07 09:58] VITALS: BP 121/58; PULSE 78; RESP 20; TEMP 36.8; O2SAT 97; BMI 25.2
[2021-11-07] MEDS: Acetaminophen 325 MG TABLET 650 MG PO (10:34)
[2021-11-07] MEDS: dexAMETHasone sod phosphate/NS 12 MG/50 ML PIGGYBACK 200 MG IV (10:35)
[2021-11-07] MEDS: diphenhydrAMINE HCL 50 MG/ML VIAL 25 MG IVPUSH (10:55)
--- NOTE | 2021-11-07 16:12 | MHC.HEMONC ---
Patient arrived for C12 D15 Gemcitabine/Abraxane. #22 angio inserted in right wrist after 2 attempts - positive blood return noted. Labs from 11/06/21 reviewed. Okay to receive treatment today. Pre medicated with Tylenol PO and Decadron, Zofran and Benadryl IV. Gemcitabine/Abraxane given as ordered - patient tolerated well. Positive blood return noted both pre and post infusion. Right PIV removed with catheter intact. Next infusion scheduled for 11/20/21. Discharge packet given. Patient departed the unit with her son.
[2021-11-19 11:23] LABS: MANUAL DIFF FLAG NO
[2021-11-19 11:27] LABS: Basophils Percent Auto 0.4 % (0-2); Eosinophils Absolute Auto 0.5 X10*3/uL (0.0-0.4); Eosinophils Percent Auto 8.8 % (0-4); Hematocrit 37.3 % (37.0-47.0); Hemoglobin 11.8 g/dl (12.0-16.0); Imm Gran Abs Auto 0.04 X10*3/uL (0.00-0.03); Imm Gran Pct Auto 0.7 % (0.0-0.4); Lymphocytes Absolute Auto 1.1 X10*3/uL (1.2-4.9); Lymphocytes Percent Auto 19.9 % (20-40); Mean Corpuscular HGB Conc 31.6 g/dl (31.0-35.0); Mean Corpuscular Hemoglobin 29.8 pg (27.0-33.0); Mean Corpuscular Volume 94.2 fL (80.0-98.0); Mean Platelet Volume 10.2 fL (9.4-12.3); Monocytes Absolute Auto 0.7 X10*3/uL (0.1-1.2); Monocytes Percent Auto 12.3 % (2-11); Neutrophils Absolute Auto 3.2 x10*3/uL (2.0-8.3); Neutrophils Percent Auto 57.9 % (45-73); Platelet Count 143 X10*3/uL (160-400); Red Blood Count 3.96 X10*6/uL (4.20-5.50); White Blood Count 5.5 X10*3/uL (4.8-10.8)
[2021-11-19 11:53] LABS: Alanine Aminotransferase 52 U/L (0-31); Albumin Level 4.1 g/dL (3.5-5.0); Alkaline Phosphatase 60 U/L (39-117); Anion Gap 9 (12-20); Aspartate Amino Transferase 44 U/L (5-31); Bilirubin Total 0.2 mg/dL (0.0-1.0); Blood Urea Nitrogen 15 mg/dL (9-16); Calcium 9.5 mg/dL (8.4-10.2); Carbon Dioxide 27 mmol/L (22-29); Chloride 106 mmol/L (96-108); Creatinine Clr Calc Pharmacy 50.2; Estimated Glomerular Filt Rate > 60; Glucose Random 124 mg/dL (60-115); Potassium 4.4 mmol/L (3.3-5.1); Sodium 138 mmol/L (135-145); Total Protein 6.8 g/dL (6.5-8.0)
--- NOTE | 2021-11-19 17:15 | MHC.HEMONC ---
labs wnl for chemo tomorrow.
[2021-11-20 10:34] VITALS: BP 127/62; PULSE 75; RESP 18; TEMP 36.7; O2SAT 96; BMI 25.5
[2021-11-20] MEDS: Ondansetron ODT 8 MG TAB.RAPDIS TRANSLINGU (10:56)
[2021-11-20] MEDS: Acetaminophen 325 MG TABLET 650 MG PO (10:56)
[2021-11-20] MEDS: dexAMETHasone sod phosphate/NS 12 MG/50 ML PIGGYBACK 200 MG IV (10:58)
[2021-11-20] MEDS: Famotidine/PF 20 MG/2 ML VIAL IVPUSH (10:58)
[2021-11-20] MEDS: diphenhydrAMINE HCL 50 MG/ML VIAL 25 MG IVPUSH (10:58)
--- NOTE | 2021-11-20 13:21 | MHC.HEMONC ---
Pt here for C13D1 Gemcitabine/Paclitaxel protein bound. Labs drawn yesterday reviewed-okay to receive treatment today. Pt states she has pain in her lungs-bilateral exp and insp wheezes noted. States she continues to use her updrafts and inhalers at home. States she will call her commodity analyst at [facility] for appointment. States she continues to have occasional dizziness' and nausea. States has dry mouth and tongue will notify Dr Cifuentes #22 angio inserted in right hand-blood return noted. Pre medicated with decadron, zofran and benadryl, pepcid, tylenol. Paclitaxel/ Gemcitabine given as directed-tolerated well. Follow up appointment scheduled. Discharge packet given.
[2021-12-04 11:09] LABS: MANUAL DIFF FLAG NO
[2021-12-04 11:12] VITALS: BP 154/74; PULSE 82; RESP 18; TEMP 36.7; O2SAT 96
[2021-12-04 11:12] LABS: Basophils Percent Auto 0.3 % (0-2); Eosinophils Absolute Auto 0.5 X10*3/uL (0.0-0.4); Eosinophils Percent Auto 8.6 % (0-4); Hematocrit 38.8 % (37.0-47.0); Hemoglobin 12.5 g/dl (12.0-16.0); Imm Gran Abs Auto 0.02 X10*3/uL (0.00-0.03); Imm Gran Pct Auto 0.3 % (0.0-0.4); Lymphocytes Absolute Auto 0.9 X10*3/uL (1.2-4.9); Lymphocytes Percent Auto 13.9 % (20-40); Mean Corpuscular HGB Conc 32.2 g/dl (31.0-35.0); Mean Corpuscular Hemoglobin 30.3 pg (27.0-33.0); Mean Corpuscular Volume 94.2 fL (80.0-98.0); Mean Platelet Volume 9.9 fL (9.4-12.3); Monocytes Absolute Auto 0.7 X10*3/uL (0.1-1.2); Monocytes Percent Auto 10.7 % (2-11); Neutrophils Absolute Auto 4.2 x10*3/uL (2.0-8.3); Neutrophils Percent Auto 66.2 % (45-73); Platelet Count 138 X10*3/uL (160-400); Red Blood Count 4.12 X10*6/uL (4.20-5.50); White Blood Count 6.3 X10*3/uL (4.8-10.8)
[2021-12-04 11:30] LABS: Alanine Aminotransferase 53 U/L (0-31); Albumin Level 4.3 g/dL (3.5-5.0); Alkaline Phosphatase 67 U/L (39-117); Anion Gap 9 (12-20); Aspartate Amino Transferase 38 U/L (5-31); Bilirubin Total 0.5 mg/dL (0.0-1.0); Blood Urea Nitrogen 18 mg/dL (9-16); Calcium 9.6 mg/dL (8.4-10.2); Carbon Dioxide 30 mmol/L (22-29); Chloride 107 mmol/L (96-108); Creatinine Clr Calc Pharmacy 50.3; Estimated Glomerular Filt Rate > 60; Glucose Random 151 mg/dL (60-115); Potassium 4.1 mmol/L (3.3-5.1); Sodium 142 mmol/L (135-145); Total Protein 7.5 g/dL (6.5-8.0)
--- NOTE | 2021-12-04 11:32 | MHC.HEMONC ---
Pt here for pre chemo labs. Blood drawn by brick paver-specimen to lab. Pt requesting FLU vaccine. Dr Cifuentes notified. Flu vaccine given IM-tolerated well. Pt to return tomorrow for chemotherapy.
[2021-12-05 10:02] VITALS: BP 140/65; PULSE 85; RESP 19; TEMP 36.9; O2SAT 97; BMI 25.1
[2021-12-05] MEDS: Ondansetron ODT 8 MG TAB.RAPDIS TRANSLINGU (10:55)
[2021-12-05] MEDS: Acetaminophen 325 MG TABLET 650 MG PO (10:55)
[2021-12-05] MEDS: diphenhydrAMINE HCL 50 MG/ML VIAL 25 MG IVPUSH (10:56)
[2021-12-05] MEDS: Famotidine/PF 20 MG/2 ML VIAL IVPUSH (10:59)
[2021-12-05] MEDS: dexAMETHasone sod phosphate/NS 12 MG/50 ML PIGGYBACK 200 MG IV (11:01)
--- NOTE | 2021-12-05 11:17 | PM.HEMONCPN ---
Medical Summary - Medical Summary Date of Service: 12/05/21 Chief complaint: Follow-up for: Pancreatic carcinoma. Medical Summary: DIAGNOSIS: Pancreatic Cancer. CURRENT THERAPY: Here for Gemcitabine Abraxane., cycle 13 day 15. Interval History Interval history: This is a pleasant 71 year-old lady, here for a follow-up visit. She tells me she has been feeling well. Recently she has come down with a cold. She has runny nose. She is feeling some body aches. She actually got the flu shot yesterday. Symptoms are likely related to that. She feels hot but does not have a fever. Sometimes she feels bit tired. She tells me that her eyes feel tired by the end of the day. She has chronic pain in the back. No headache no dizziness. Denies any fever nor chills. She denies any chest pain or trouble breathing. Sometimes, she has some nausea but no vomiting. The anti emetic helps. Abdominal pain comes and goes. It is located in the mid abdominal. It has improved. Pain medicines are helping. She gets intermittent diarrhea after the treatment. No gross blood in the stools. She does have Imodium that she can take in that case. Appetite is fair. Her weight is stable. She is actually quite independent. She is in excellent spirits. Rest of the review of systems is unremarkable. Previous history: She was seen in house. She presented to the hospital with complaints of abdominal pain. She complained of pain all over , on her abdomen, back, chest, legs. She reported that the abdominal pain had been going on for 2 months but worsened over the past 3 days. The pain is generalized abdominal pain, 8/10, intermittent, nonradiating, associated with nausea and vomiting. She also had occasional chills with no fever. She reported the pain to be just generalized discomfort. When asked about weight loss she reports about 1-2 lb of weight loss but not more. She also complained of years of shortness of breath with no change. She denied urinary symptoms and no lower extremity edema. Patient also complained of bloating, and low appetite. Her temp was 98.6?, pulse rate of 69, respiratory rate of 19, and oxygen saturation of 95% on room air. Labs: significant for PT of 27.7 INR of 2.3, sodium of 130, BUN of 11 with creatinine of 0.77, troponin 38 trended down to 37, BNP of 259, CT abdomen showed: New mass in the head neck and body of the pancreas measuring 4.5 x 6.5 cm worrisome for neoplasm. New bilateral pulmonary nodules. Upper abdominal varices. Large esophageal hernia, or intrathoracic stomach. Diverticulosis of the colon. Probable small uterine fibroid. Hospital course: The patient was evaluated for abdominal pain. I recommended, Biopsy of the pancreas. Discussed with IR who recommended holding both aspirin and warfarin for 3 days prior to procedure which was to be scheduled for next Wednesday. After discussing with the patient, she preferred to come back at the time of the biopsy. Her INR of 1.6 at the day of discharge. She was noted to have hyponatremia which seems to be chronic around 130-131. BNP was noted to be mildly elevated around 200 which was the baseline for her, looking back at her previous readings. Not in acute CHF exacerbation. les. Upper abdominal varices. Large esophageal hernia Past medical history: Diabetes, COPD, CVA, hypertension. Review of Systems - Constitutional Reports no additional constitutional complaints - Eyes Reports no additional eye complaints - ENT Reports no additional ear, nose, mouth, and throat complaints - Cardiovascular Reports no additional cardiovascular complaints - Respiratory Reports no additional respiratory complaints - Gastrointestinal Reports no additional gastrointestinal complaints - Genitourinary Reports no additional female genitourinary complaints - Musculoskeletal Reports no additional musculoskeletal complaints - Integumentary/Breasts Skin/Breast: Reports no additional skin complaints - Neurologic Reports no additional neurologic complaints, Reports headache(s), Denies loss of vision, Reports weakness - Psychiatric Reports no additional psychiatric complaints - Endocrine Reports no additional endocrine complaints - Hematologic/Lymphatic Reports no additional hematologic/lymphatic complaints - Allergic/Immunologic Reports no additional allergic/immunologic complaints [facility] Medical History: Medical History (Last Reviewed 10/06/21 @ 12:12 by Hieu Eddy MD) Anxiety and depression Biventricular ICD (implantable cardioverter-defibrillator) in place Cardiomyopathy Congestive heart failure COPD (chronic obstructive pulmonary disease) Coronary artery disease Current use of anticoagulant therapy CVA (cerebral vascular accident) Diverticulitis Esophageal hernia GERD (gastroesophageal reflux disease) History of renal calculi HTN (hypertension) Hypercholesterolemia Hyponatremia Osteopenia Type 2 diabetes mellitus with hyperglycemia Umbilical hernia Functional capacity: uses cane/walker Patient : No Family History: Family History (Last Reviewed 10/06/21 @ 12:12 by Hieu Eddy MD) Father Medical history unknown Mother Diabetes Hypertension Surgical History: Surgical History (Last Reviewed 10/06/21 @ 12:12 by Hieu Eddy MD) History of hemicolectomy History of incisional hernia repair History of pacemaker Social History: Social History (Last Reviewed 10/06/21 @ 12:12 by Hieu Eddy MD) Living Situation History: Household Members: Family Housing: House Are you a primary child caregiver to a significant other at home: No Do you presently have visiting nurse or other home services: No Alcohol History Details: Currently Displaying Signs/Symptoms of Alcohol Withdrawal: No Tobacco History: Patient Tobacco Use Status: Never used Tobacco e-Cigarette/Vaping Use: Never Used Second Hand Smoke Exposure: No Substance Use History: Use of substances other than those prescribed or required for medical reasons: No Domestic Abuse History: Have you been hit, kicked, punched, or otherwise hurt by someone within the past year? If so, by whom?: No Do you feel safe in your current relationship?: No Healthcare Practices: Judaism Healthcare Practices: Taoist/ Gnosticism Nutrition Assessment: Recently lost weight without trying: Yes How much weight loss: 24-33 pounds Eating poorly because of decreased appetite: Yes Nutrition screen score: 6 Nutrition Risks: Acute nausea or vomiting Patient : No : No Poor oral hygiene: No Occupation Assessmet: service: No Current occupational status: retired Oncology Screenings - ECOG Performance Status ECOG Performance Status: 1 Home Medications and Allergies Current Medications: Current Medications Acetaminophen (Acetaminophen 325 Mg Tablet) 650 mg PO ONCE ERWIN Stop: 12/05/21 23:59 Last Admin: 12/05/21 10:55 Dose: 650 mg Documented by: Diphenhydramine HCl (Diphenhydramine Hcl 50 Mg/Ml Vial) 25 mg IVPUSH ONCE ERWIN Stop: 12/05/21 23:59 Last Admin: 12/05/21 10:56 Dose: 25 mg Documented by: Diphenhydramine HCl (Diphenhydramine Hcl 50 Mg/Ml Vial) 25 mg IVPUSH ONCE ERWIN Stop: 12/05/21 23:59 Famotidine (Famotidine/Pf 20 Mg/2 Ml Vial) 20 mg IVPUSH ONCE ERWIN Stop: 12/05/21 23:59 Last Admin: 01/14/22 10:59 Dose: 20 mg Documented by: Gemcitabine HCl 1,590 mg/ (Sodium Chloride) 291.8424 mls @ 583.684 mls/hr IV ONCE ERWIN Last Admin: 11/20/21 12:40 Dose: 583.68 mls/hr Documented by: Dexamethasone Sodium Phosphate (Decadron) 12 mg in 50 mls @ 200 mls/hr IV ONCE ERWIN Stop: 12/05/21 23:59 Last Admin: 12/05/21 11:01 Dose: 200 mls/hr Documented by: Paclitaxel/Albumin ( Nanoparticle) 200 mg/ IV Miscellaneous Supplies 40 mls @ 80 mls/hr IV ONCE ERWIN Stop: 12/05/21 23:59 Gemcitabine HCl 1,590 mg/ (Sodium Chloride) 291.817 mls @ 583.684 mls/hr IV ONCE ERWIN Ondansetron HCl (Ondansetron Odt 8 Mg Tab.Rapdis) 8 mg TRANSLINGU ONCE ERWIN Stop: 12/05/21 23:59 Last Admin: 12/05/21 10:55 Dose: 8 mg Documented by: Home Medications Medication Instructions Recorded Confirmed Type carbamazepine 200 mg tablet 200 mg PO DAILY 10/30/20 11/07/21 History budesonide-formoterol HFA 160 2 puff INHALATION BID 11/19/20 11/07/21 History mcg-4.5 mcg/actuation aerosol inhaler metformin 500 mg tablet,extended 500 mg PO BID 02/21/21 11/07/21 History release 24 hr food supplemt, lactose-reduced 1 ea PO DAILY 07/14/21 11/07/21 History (Ensure) multivitamin with folic acid 400 1 tab PO BEDTIME 07/21/21 11/07/21 History mcg tablet (Daily-Eve (with folic acid)) Allergies Allergy/AdvReac Type Severity Reaction Status Date / Time No Known Allergies Allergy Verified 11/03/21 10:49 Exam Vital signs: Vital Signs Temp 98.5 F 12/05/21 10:02 Pulse 85 12/05/21 10:02 Resp 19 12/05/21 10:02 BP 140/65 H 12/05/21 10:02 Pulse Ox 97 12/05/21 10:02 Intake & Output 12/04/21 12/05/21 12/05/21 18:59 06:59 18:59 Other: Weight 59 kg [place] Weight in Grams 32341 Weight 59 kg BMI result Body Mass Index 25.1 - Constitutional Present: no acute distress, mild distress - Routine HEENT Exam Head: Present: normal inspection Eye: Present: normal appearance ENT: Present: mucous membranes moist - Routine Neck Exam Present: full ROM - Routine Respiratory Exam Present: CTAB - Routine Cardiovascular Exam Cardiovascular: Present: RRR, S1, S2 - Routine Abdominal Exam Present: soft, tenderness. Absent: nontender - Routine Rectal Exam Patient deferred: digital exam - Routine Extremities Exam Present: nontender - Routine Back/Spine/Pelvis Exam Back/Spine: Present: full ROM - Routine Skin Exam Present: intact - Routine Neurological Exam Present: alert, oriented X3 - Routine Psychiatric Exam Present: normal affect Data - Labs CBC & Chem 7: 12/04/21 11:05 12/04/21 11:05 Assessment and Plan Patient Active problem list reviewed?: Yes (1) Pancreatic carcinoma Status: Acute Assessment and plan: This is a pleasant 70 year-old lady who presents with a couple of months history of abdominal pain that recently worsened. CT scan of the abdomen revealed: New mass in the head, neck and body the pancreas measuring 4.5 x 6.5 cm worrisome for neoplasm. New bilateral pulmonary nodules. Upper abdominal varices. Large esophageal hernia or intrathoracic stomach. Diverticulosis of the colon. Probable small uterine fibroid. Concern was for pancreatic cancer. Tumor marker Ca 19/9 is :4524. Biopsy was done on 11/12. Pathology revealed: Positive for atypical mucinous neoplasm. Moderately cellular specimen consisting of sheets of mucinous epithelium with cytologic atypia characterized by loss of clarity an irregularly shaped nuclei with Dr. chromatin in irregular nuclear membrane. Differential diagnosis includes an adenocarcinoma, mucinous cystic neoplasm and intraductal papillary mucinous neoplasm. I will proceed with a PET scan for further evaluation. This was done on 12/03, and revealed: Mild FDG activity in the pancreatic mass involving the head and adjacent pancreatic body corresponding to the recently biopsied malignancy. Multiple predominantly subcentimeter pulmonary nodules are present throughout the lungs likely represent metastases. Most of these are too small to be characterized on the PET images but the largest shows FDG activity. No additional abnormality suspicious for metastatic or other malignant lesions are noted. Chronic left posterior parietal cerebral infarction Large hiatal hernia.. My plan was to proceed with systemic chemotherapy. She has been started on gemcitabine and Abraxane based regimen. After she had 3 cycles, he had CT scan. Repeat imaging from 04/04: CT abdomen: No appreciable change in the mass in the body of the pancreas from October [address] chest: Multiple bilateral pulmonary nodules not appreciably changed from previous PET/CT scan November 2020. Enlarged heart. Large esophageal hernia or intrathoracic stomach. I discussed the CT scan results with her, told her that even though there has not been much decrease in size of the tumor things do appear stable. Stable disease is considered a response to treatment. Hopefully things will decrease with the continued chemotherapy. She has been tolerating it well. She complains of intermittent diarrhea, after chemotherapy. CT scan of the abdomen from April 04: No appreciable change in the mass in the body of the pancreas from October [address] chest from April 04: Multiple bilateral pulmonary nodules not appreciably changed from previous PET/CT scan November 2020. Enlarged heart. Large esophageal hernia or intrathoracic stomach. She had a CT scan of the chest and abdomen on 08/22 which revealed: Previously described large 7 mm pulmonary nodules are smaller. No new pulmonary nodules are seen. A hypodense mass in the body of the pancreas and encasement surrounding the SMA is stable. The tail of the pancreas is not visualized, similar to previous study. No abnormal chest, abdomen and pelvic lymphadenopathy. Stable calcified left fibroid and right paramidline hernia containing fat and bowel loops. Moderate constipation. She is tolerating the treatment well. CA 19-9 down to 1878 in August, 5 in May from 4855 in November. This is encouraging. PLAN: She will receive cycle 13 day 15 of her treatment today. Will re-stage her with another CT scan. This will be scheduled over the next couple of weeks. Will follow-up on the tumor marker as well. I will see her back in a month's time, All her questions were answered to their satisfaction. Thanks, CC: Dr. Lancaster. - Time Spent With Patient Time Spent with Patient (in minutes): 30
--- NOTE | 2021-12-05 16:12 | MHC.HEMONC ---
Pt here for C13D15 Paclitaxel/Gemcitabine. Labs drawn yesterday 12/04/21 reviewed-okay to receive treatment today. Pt states she doesn't feel well today. States back is in pain States aches all over secondary to flu vaccine yesterday. States has occasional diarrhea and fatigue. #22 angio inserted in right hand with blood return noted. Pre medicated with zofran, benadryl, pepcid, decadron, tylenol. Paclitaxel/Gemcitabine given as directed-tolerated well. Dr Cifuentes into see pt. Peripheral IV removed-no edema at site. Follow up appointment scheduled. Discharge packet given.
[2021-12-06 09:02] LABS: Carbohydrate Antigen 19-9 2550 U/mL (<34)
--- NOTE | 2021-12-08 11:19 | HO.HEMONCPA ---
[facility] FOR [id number] ABRAXANE APPROVED. AUTH #[id number]. DOS 12/08/21 to 06/05/2022. DOCUMENT SCANNED IN CHART.
--- NOTE | 2021-12-08 16:12 | MHC.HEMONC ---
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
[2021-12-18 10:54] LABS: MANUAL DIFF FLAG NO
[2021-12-18 11:02] LABS: Basophils Percent Auto 0.2 % (0-2); Eosinophils Absolute Auto 0.5 X10*3/uL (0.0-0.4); Eosinophils Percent Auto 9.6 % (0-4); Hematocrit 37.4 % (37.0-47.0); Hemoglobin 11.8 g/dl (12.0-16.0); Imm Gran Abs Auto 0.03 X10*3/uL (0.00-0.03); Imm Gran Pct Auto 0.6 % (0.0-0.4); Lymphocytes Absolute Auto 1.2 X10*3/uL (1.2-4.9); Lymphocytes Percent Auto 22.7 % (20-40); Mean Corpuscular HGB Conc 31.6 g/dl (31.0-35.0); Mean Corpuscular Hemoglobin 29.9 pg (27.0-33.0); Mean Corpuscular Volume 94.9 fL (80.0-98.0); Mean Platelet Volume 9.6 fL (9.4-12.3); Monocytes Absolute Auto 0.6 X10*3/uL (0.1-1.2); Neutrophils Absolute Auto 2.9 x10*3/uL (2.0-8.3); Neutrophils Percent Auto 55.9 % (45-73); Platelet Count 123 X10*3/uL (160-400); Red Blood Count 3.94 X10*6/uL (4.20-5.50); Red Cell Distribution Width 14.8 % (11.0-16.0); White Blood Count 5.1 X10*3/uL (4.8-10.8)
[2021-12-18 11:15] LABS: Alanine Aminotransferase 45 U/L (0-31); Alkaline Phosphatase 67 U/L (39-117); Anion Gap 10 (12-20); Aspartate Amino Transferase 40 U/L (5-31); Bilirubin Total 0.2 mg/dL (0.0-1.0); Blood Urea Nitrogen 20 mg/dL (9-16); Calcium 9.4 mg/dL (8.4-10.2); Carbon Dioxide 32 mmol/L (22-29); Chloride 98 mmol/L (96-108); Creatinine Clr Calc Pharmacy 44.5; Estimated Glomerular Filt Rate 59; Glucose Random 138 mg/dL (60-115); Potassium 4.7 mmol/L (3.3-5.1); Sodium 135 mmol/L (135-145)
[2021-12-19 10:08] VITALS: BP 119/59; PULSE 69; RESP 18; TEMP 37; O2SAT 96; BMI 25.5
[2021-12-19] MEDS: Ondansetron ODT 8 MG TAB.RAPDIS TRANSLINGU (10:30)
[2021-12-19] MEDS: Acetaminophen 325 MG TABLET 650 MG PO (10:30)
[2021-12-19] MEDS: diphenhydrAMINE HCL 50 MG/ML VIAL 25 MG IVPUSH (10:31)
[2021-12-19] MEDS: dexAMETHasone sod phosphate/NS 12 MG/50 ML PIGGYBACK 200 MG IV (10:31)
--- NOTE | 2021-12-19 13:34 | MHC.HEMONC ---
Pt here for C14D1 PACLITAXEL ALBUMIN BOUND/GEMCITABINE. Peripheral IV inserted in left hand with blood return noted. Labs drawn yesterday reviewed-okay to receive treatment today. Pt states she has fatigue, abdominal/back pain which is relieved with pain medication. States has dry mouth and occasional constipation and diarrhea. Pre medicated with zofran, tylenol, benadryl, pepcid, decadron. Paclitaxel/Gemcitabine given as ordered-tolerated well. Peripheral IV removed-no edema or redness at site. Pt has CT appointment on 12/24/21 at 0800- pt notified of appointment and need for her to be NPO for 3 hours prior to exam. Son present during conversation. Follow up appointment scheduled, discharge packet given
[2022-01-01 10:09] LABS: MANUAL DIFF FLAG NO
[2022-01-01 10:13] LABS: Basophils Percent Auto 0.5 % (0-2); Eosinophils Absolute Auto 0.7 X10*3/uL (0.0-0.4); Eosinophils Percent Auto 11.4 % (0-4); Hematocrit 37.1 % (37.0-47.0); Hemoglobin 11.6 g/dl (12.0-16.0); Imm Gran Abs Auto 0.03 X10*3/uL (0.00-0.03); Imm Gran Pct Auto 0.5 % (0.0-0.4); Lymphocytes Absolute Auto 1.3 X10*3/uL (1.2-4.9); Lymphocytes Percent Auto 21.5 % (20-40); Mean Corpuscular HGB Conc 31.3 g/dl (31.0-35.0); Mean Corpuscular Hemoglobin 29.8 pg (27.0-33.0); Mean Corpuscular Volume 95.4 fL (80.0-98.0); Monocytes Absolute Auto 0.7 X10*3/uL (0.1-1.2); Monocytes Percent Auto 11.6 % (2-11); Neutrophils Absolute Auto 3.3 x10*3/uL (2.0-8.3); Neutrophils Percent Auto 54.5 % (45-73); Platelet Count 144 X10*3/uL (160-400); Red Blood Count 3.89 X10*6/uL (4.20-5.50); Red Cell Distribution Width 15.3 % (11.0-16.0); White Blood Count 6.1 X10*3/uL (4.8-10.8)
[2022-01-01 10:32] LABS: Alanine Aminotransferase 33 U/L (0-31); Albumin Level 4.2 g/dL (3.5-5.0); Alkaline Phosphatase 64 U/L (39-117); Anion Gap 11 (12-20); Aspartate Amino Transferase 31 U/L (5-31); Bilirubin Total 0.3 mg/dL (0.0-1.0); Blood Urea Nitrogen 17 mg/dL (9-16); Calcium 9.4 mg/dL (8.4-10.2); Carbon Dioxide 30 mmol/L (22-29); Chloride 103 mmol/L (96-108); Creatinine Clr Calc Pharmacy 43.9; Estimated Glomerular Filt Rate 58; Glucose Random 130 mg/dL (60-115); Potassium 4.8 mmol/L (3.3-5.1); Sodium 139 mmol/L (135-145); Total Protein 7.1 g/dL (6.5-8.0)
[2022-01-02] MEDS: Ondansetron ODT 8 MG TAB.RAPDIS TRANSLINGU (10:20)
[2022-01-02] MEDS: Acetaminophen 325 MG TABLET 650 MG PO (10:21)
[2022-01-02] MEDS: dexAMETHasone sod phosphate/NS 12 MG/50 ML PIGGYBACK 200 MG IV (10:22)
[2022-01-02] MEDS: diphenhydrAMINE HCL 50 MG/ML VIAL 25 MG IVPUSH (10:29)
--- NOTE | 2022-01-02 11:52 | PM.HEMONCPN ---
Medical Summary - Medical Summary Date of Service: 01/02/22 Chief complaint: Follow-up for: Pancreatic carcinoma. Medical Summary: DIAGNOSIS: Pancreatic Cancer. CURRENT THERAPY: Here for Gemcitabine Abraxane., cycle 14, day 15. Interval History Interval history: This is a pleasant 71 year-old lady, here for a follow-up visit. She tells me she has been feeling well. Sometimes she feels bit tired. She has chronic pain in the back. No headache no dizziness. Denies any fever nor chills. She denies any chest pain or trouble breathing. Sometimes, she has some nausea but no vomiting. The anti emetic helps. Abdominal pain comes and goes. It is located in the mid abdominal. It has improved. Pain medicines are helping. She gets intermittent diarrhea after the treatment. No gross blood in the stools. She does have Imodium that she can take in that case. Appetite is fair. Her weight is stable. She is actually quite independent. She is in excellent spirits. Rest of the review of systems is unremarkable. Previous history: She was seen in house. She presented to the hospital with complaints of abdominal pain. She complained of pain all over , on her abdomen, back, chest, legs. She reported that the abdominal pain had been going on for 2 months but worsened over the past 3 days. The pain is generalized abdominal pain, 8/10, intermittent, nonradiating, associated with nausea and vomiting. She also had occasional chills with no fever. She reported the pain to be just generalized discomfort. When asked about weight loss she reports about 1-2 lb of weight loss but not more. She also complained of years of shortness of breath with no change. She denied urinary symptoms and no lower extremity edema. Patient also complained of bloating, and low appetite. Her temp was 98.6?, pulse rate of 69, respiratory rate of 19, and oxygen saturation of 95% on room air. Labs: significant for PT of 27.7 INR of 2.3, sodium of 130, BUN of 11 with creatinine of 0.77, troponin 38 trended down to 37, BNP of 259, CT abdomen showed: New mass in the head neck and body of the pancreas measuring 4.5 x 6.5 cm worrisome for neoplasm. New bilateral pulmonary nodules. Upper abdominal varices. Large esophageal hernia, or intrathoracic stomach. Diverticulosis of the colon. Probable small uterine fibroid. Hospital course: The patient was evaluated for abdominal pain. I recommended, Biopsy of the pancreas. Discussed with IR who recommended holding both aspirin and warfarin for 3 days prior to procedure which was to be scheduled for next Wednesday. After discussing with the patient, she preferred to come back at the time of the biopsy. Her INR of 1.6 at the day of discharge. She was noted to have hyponatremia which seems to be chronic around 130-131. BNP was noted to be mildly elevated around 200 which was the baseline for her, looking back at her previous readings. Not in acute CHF exacerbation. les. Upper abdominal varices. Large esophageal hernia Past medical history: Diabetes, COPD, CVA, hypertension. Review of Systems - Constitutional Reports system reviewed and no additional complaints, except as documented - Eyes Reports system reviewed and no additional complaints, except as documented - ENT Reports system reviewed and no additional complaints, except as documented - Cardiovascular Reports system reviewed and no additional complaints, except as documented - Respiratory Reports no additional respiratory complaints - Gastrointestinal Reports system reviewed and no additional complaints, except as documented - Genitourinary Reports no additional female genitourinary complaints - Musculoskeletal Reports system reviewed and no additional complaints, except as documented - Integumentary/Breasts Skin/Breast: Reports no additional skin complaints - Neurologic Reports system reviewed and no additional complaints, except as documented, Reports headache(s), Reports weakness, Denies loss of vision - Psychiatric Reports system reviewed and no additional complaints, except as documented - Endocrine Reports no additional endocrine complaints - Hematologic/Lymphatic Reports system reviewed and no additional complaints, except as documented - Allergic/Immunologic Reports system reviewed and no additional complaints, except as documented PMF Medical History: Medical History (Last Reviewed 10/06/21 @ 12:12 by Hieu Eddy MD) Anxiety and depression Biventricular ICD (implantable cardioverter-defibrillator) in place Cardiomyopathy Congestive heart failure COPD (chronic obstructive pulmonary disease) Coronary artery disease Current use of anticoagulant therapy CVA (cerebral vascular accident) Diverticulitis Esophageal hernia GERD (gastroesophageal reflux disease) History of renal calculi HTN (hypertension) Hypercholesterolemia Hyponatremia Osteopenia Type 2 diabetes mellitus with hyperglycemia Umbilical hernia Functional capacity: uses cane/walker Patient : No Family History: Family History (Last Reviewed 10/06/21 @ 12:12 by Hieu Eddy MD) Father Medical history unknown Mother Diabetes Hypertension Surgical History: Surgical History (Last Reviewed 10/06/21 @ 12:12 by Hieu Eddy MD) History of hemicolectomy History of incisional hernia repair History of pacemaker Social History: Social History (Last Reviewed 10/06/21 @ 12:12 by Hieu Eddy MD) Living Situation History: Household Members: Family Housing: House Are you a primary care coordination manager to a significant other at home: No Do you presently have visiting nurse or other home services: No Alcohol History Details: Currently Displaying Signs/Symptoms of Alcohol Withdrawal: No Tobacco History: Patient Tobacco Use Status: Never used Tobacco e-Cigarette/Vaping Use: Never Used Second Hand Smoke Exposure: No Substance Use History: Use of substances other than those prescribed or required for medical reasons: No Domestic Abuse History: Have you been hit, kicked, punched, or otherwise hurt by someone within the past year? If so, by whom?: No Do you feel safe in your current relationship?: No Healthcare Practices: Yazidi Healthcare Practices: Baptism/ Cheondoism Nutrition Assessment: Recently lost weight without trying: Yes How much weight loss: 24-33 pounds Eating poorly because of decreased appetite: Yes Nutrition screen score: 6 Nutrition Risks: Acute nausea or vomiting Patient : No : No Poor oral hygiene: No Occupation Assessmet: service: No Current occupational status: retired Oncology Screenings - ECOG Performance Status ECOG Performance Status: 1 Home Medications and Allergies Current Medications: Current Medications Acetaminophen (Acetaminophen 325 Mg Tablet) 650 mg PO ONCE ERWIN Stop: 01/02/22 23:59 Last Admin: 01/02/22 10:21 Dose: 650 mg Documented by: Diphenhydramine HCl (Diphenhydramine Hcl 50 Mg/Ml Vial) 25 mg IVPUSH ONCE ERWIN Stop: 01/02/22 23:59 Last Admin: 01/02/22 10:29 Dose: 25 mg Documented by: Dexamethasone Sodium Phosphate (Decadron) 12 mg in 50 mls @ 200 mls/hr IV ONCE ERWIN Stop: 01/02/22 23:59 Last Infusion: 01/02/22 10:37 Dose: Infused Documented by: Paclitaxel/Albumin ( Nanoparticle) 200 mg/ IV Miscellaneous Supplies 40 mls @ 80 mls/hr IV ONCE ERWIN Stop: 01/02/22 23:59 Last Admin: 01/02/22 11:36 Dose: 80 mls/hr Documented by: Gemcitabine HCl 1,580 mg/ (Sodium Chloride) 291.554 mls @ 583.157 mls/hr IV ONCE ERWIN Stop: 01/02/22 23:00 Ondansetron HCl (Ondansetron Odt 8 Mg Tab.Rapdis) 8 mg TRANSLINGU ONCE ERWIN Stop: 01/02/22 23:59 Last Admin: 01/02/22 10:20 Dose: 8 mg Documented by: Home Medications Medication Instructions Recorded Confirmed Type carbamazepine 200 mg tablet 200 mg PO DAILY 10/30/20 12/19/21 History budesonide-formoterol HFA 160 2 puff INHALATION BID 11/19/20 12/19/21 History mcg-4.5 mcg/actuation aerosol inhaler metformin 500 mg tablet,extended 500 mg PO BID 02/21/21 12/19/21 History release 24 hr food supplemt, lactose-reduced 1 ea PO DAILY 07/14/21 12/19/21 History (Ensure) multivitamin with folic acid 400 1 tab PO BEDTIME 07/21/21 12/19/21 History mcg tablet (Daily-Eve (with folic acid)) Allergies Allergy/AdvReac Type Severity Reaction Status Date / Time No Known Allergies Allergy Verified 12/19/21 11:53 Exam Vital signs: Vital Signs Temp 98.6 F 12/19/21 10:08 Pulse 69 12/19/21 10:08 Resp 18 12/19/21 10:08 BP 119/59 L 12/19/21 10:08 Pulse Ox 96 12/19/21 10:08 Intake & Output 01/01/22 01/02/22 01/02/22 18:59 06:59 18:59 Intake Total 50 / 50 Balance 50 / 50 Intake: Intake, IV Amount 50 / 50 dexAMETHasone sod phosphate/NS 50 / 50 12 mg In 50 ml @ 200 mls/hr IV ONCE ERWIN Rx#:[id number] Weight 60 kg BMI result Body Mass Index 25.5 - Constitutional Present: no acute distress, mild distress - Routine HEENT Exam Head: Present: normal inspection Eye: Present: normal appearance ENT: Present: mucous membranes moist - Routine Neck Exam Present: full ROM - Routine Respiratory Exam Present: CTAB - Routine Cardiovascular Exam Cardiovascular: Present: RRR, S1, S2 - Routine Abdominal Exam Present: soft, tenderness. Absent: nontender - Routine Rectal Exam Patient deferred: digital exam - Routine Extremities Exam Present: nontender - Routine Back/Spine/Pelvis Exam Back/Spine: Present: full ROM - Routine Skin Exam Present: intact - Routine Neurological Exam Present: alert, oriented X3 - Routine Psychiatric Exam Present: normal affect Data - Labs CBC & Chem 7: 01/01/22 10:06 01/01/22 10:06 Assessment and Plan Patient Active problem list reviewed?: Yes (1) Pancreatic carcinoma Status: Acute Assessment and plan: This is a pleasant 70 year-old lady who presents with a couple of months history of abdominal pain that recently worsened. CT scan of the abdomen revealed: New mass in the head, neck and body the pancreas measuring 4.5 x 6.5 cm worrisome for neoplasm. New bilateral pulmonary nodules. Upper abdominal varices. Large esophageal hernia or intrathoracic stomach. Diverticulosis of the colon. Probable small uterine fibroid. Concern was for pancreatic cancer. Tumor marker Ca 19/9 is :4524. Biopsy was done on 11/12. Pathology revealed: Positive for atypical mucinous neoplasm. Moderately cellular specimen consisting of sheets of mucinous epithelium with cytologic atypia characterized by loss of clarity an irregularly shaped nuclei with Dr. chromatin in irregular nuclear membrane. Differential diagnosis includes an adenocarcinoma, mucinous cystic neoplasm and intraductal papillary mucinous neoplasm. I will proceed with a PET scan for further evaluation. This was done on 12/03, and revealed: Mild FDG activity in the pancreatic mass involving the head and adjacent pancreatic body corresponding to the recently biopsied malignancy. Multiple predominantly subcentimeter pulmonary nodules are present throughout the lungs likely represent metastases. Most of these are too small to be characterized on the PET images but the largest shows FDG activity. No additional abnormality suspicious for metastatic or other malignant lesions are noted. Chronic left posterior parietal cerebral infarction Large hiatal hernia.. My plan was to proceed with systemic chemotherapy. She has been started on gemcitabine and Abraxane based regimen. After she had 3 cycles, he had CT scan. Repeat imaging from 04/04: CT abdomen: No appreciable change in the mass in the body of the pancreas from October [address] chest: Multiple bilateral pulmonary nodules not appreciably changed from previous PET/CT scan November 2020. Enlarged heart. Large esophageal hernia or intrathoracic stomach. I discussed the CT scan results with her, told her that even though there has not been much decrease in size of the tumor things do appear stable. Stable disease is considered a response to treatment. Hopefully things will decrease with the continued chemotherapy. She has been tolerating it well. She complains of intermittent diarrhea, after chemotherapy. CT scan of the abdomen from April 04: No appreciable change in the mass in the body of the pancreas from October [address] chest from April 04: Multiple bilateral pulmonary nodules not appreciably changed from previous PET/CT scan November 2020. Enlarged heart. Large esophageal hernia or intrathoracic stomach. She had a CT scan of the chest and abdomen on 08/22 which revealed: Previously described large 7 mm pulmonary nodules are smaller. No new pulmonary nodules are seen. A hypodense mass in the body of the pancreas and encasement surrounding the SMA is stable. The tail of the pancreas is not visualized, similar to previous study. No abnormal chest, abdomen and pelvic lymphadenopathy. Stable calcified left fibroid and right paramidline hernia containing fat and bowel loops. Moderate constipation. She is tolerating the treatment well. CA 19-9 was down to 1878 in August, 5 in May from 4855 in November. Most recently went up to 2550. l re-staged her with another CT scan. CT chest revealed:. Interval increase in size in some of the larger pulmonary nodules compared to August 2021 exam. I shared the results with her and her son. Explained to them that it appears that the disease is getting refractory to the current regimen. Will need to switch her to a different protocol. 1 option would be oxaliplatin with 5 FU and leucovorin. She would need a Port-A-Cath placed for that and an infusion pump for 24 hours. PLAN: She is currently undecided how she would want to proceed. She needs time to make a decision. Her son will be calling me early next week. Will follow-up on the tumor marker as well. I will see her back in a couple of weeks time, If she decides to proceed will place a Port-A-Cath and then get her started. Will proceed with 3 cycles and then week stage her with repeat imaging. All her questions were answered to their satisfaction. Thanks, CC: Dr. Lancaster. - Time Spent With Patient Time Spent with Patient (in minutes): 30
[2022-01-02] MEDS: LORazepam 0.5 MG TABLET PO (12:43)
--- NOTE | 2022-01-02 13:29 | MHC.HEMONC ---
Pt here for [id number] Paclitaxel/Gemcitabine. Labs drawn yesterday-reviewed. Okay to receive treatment today. Pt states she has occasional diarrhea/constipation. Appetite poor today. States she went to [facility] recently for her asthma. Starting on Ivermectin today. # 22 angio inserted in right hand with blood return noted. Pre medicated with tylenol, zofran, benadryl, decadron. Paclitaxel/Gemcitabine given as directed-tolerated well. peripheral IV removed-site without edema or redness at site. Dr Cifuentes into see pt to discuss results of recent scan. Son Eliot present during conversation. Pt anxious-requesting medication to relax. Dr Cifuentes notified. Lorazepam 0.5mg p given as ordered. Pt states she will discuss plan for port a cath insertion with her family and will get back to us next week. Discharge packet given with follow up appointment.
[2022-01-15 11:02] LABS: MANUAL DIFF FLAG NO
[2022-01-15 11:11] LABS: Basophils Percent Auto 0.2 % (0-2); Eosinophils Absolute Auto 0.3 X10*3/uL (0.0-0.4); Hematocrit 37.9 % (37.0-47.0); Hemoglobin 11.8 g/dl (12.0-16.0); Imm Gran Abs Auto 0.01 X10*3/uL (0.00-0.03); Imm Gran Pct Auto 0.2 % (0.0-0.4); Lymphocytes Absolute Auto 0.9 X10*3/uL (1.2-4.9); Lymphocytes Percent Auto 20.4 % (20-40); Mean Corpuscular HGB Conc 31.1 g/dl (31.0-35.0); Mean Corpuscular Hemoglobin 29.8 pg (27.0-33.0); Mean Corpuscular Volume 95.7 fL (80.0-98.0); Mean Platelet Volume 10.4 fL (9.4-12.3); Monocytes Absolute Auto 0.5 X10*3/uL (0.1-1.2); Monocytes Percent Auto 12.5 % (2-11); Neutrophils Absolute Auto 2.5 x10*3/uL (2.0-8.3); Neutrophils Percent Auto 59.7 % (45-73); Platelet Count 100 X10*3/uL (160-400); Red Blood Count 3.96 X10*6/uL (4.20-5.50); Red Cell Distribution Width 15.1 % (11.0-16.0); White Blood Count 4.2 X10*3/uL (4.8-10.8)
[2022-01-15 11:29] LABS: Alanine Aminotransferase 29 U/L (0-31); Albumin Level 4.4 g/dL (3.5-5.0); Alkaline Phosphatase 66 U/L (39-117); Anion Gap 12 (12-20); Aspartate Amino Transferase 31 U/L (5-31); Bilirubin Total 0.4 mg/dL (0.0-1.0); Blood Urea Nitrogen 12 mg/dL (9-16); Calcium 9.5 mg/dL (8.4-10.2); Carbon Dioxide 27 mmol/L (22-29); Chloride 105 mmol/L (96-108); Creatinine Clr Calc Pharmacy 50.3; Estimated Glomerular Filt Rate > 60; Glucose Random 128 mg/dL (60-115); Sodium 140 mmol/L (135-145); Total Protein 7.3 g/dL (6.5-8.0)
--- NOTE | 2022-01-16 09:33 | MHC.HEMONC ---
Chemo therapy cancelled for today secondary to platelets of 100. Plan to have pt come in today to discuss chemo plan with Dr Cifuentes. Pt's son Eliot called and informed. Eliot russo he will notify his mother and they will be in today at 1100
--- NOTE | 2022-01-16 11:49 | P.PNHO_ITS ---
Medical Summary - Medical Summary Date of Service: 01/16/22 Chief complaint: Follow-up for: Pancreatic carcinoma. Medical Summary: DIAGNOSIS: Pancreatic Cancer. CURRENT THERAPY: Here for Gemcitabine Abraxane., cycle 14, day 15. Interval History Interval history: This is a pleasant 71 year-old lady, here for a follow-up visit. She tells me she has been feeling, so so. Her mouth feels dry times. Her tongue feels, draw and cracked as if it is scratched. There is some pain and burning in it especially in the morning. She denies dysphagia or odynophagia. Her energy is up and down. Sometimes she feels bit tired. No headache no dizziness. Denies any fever nor chills. She denies any chest pain or trouble breathing. Sometimes, she has some nausea but no vomiting. The anti emetic helps. She does complain of pain in her belly around the periumbilical area that radiates to the side and then to the back. It comes and goes. Pain medicines are helping. She gets intermittent diarrhea if she eats lately. She does have Imodium that she can take in that case. No gross blood in the stools. Appetite is fluctuating. Her weight is stable. She has chronic pain in the back. She is actually quite independent. She is in good spirits. Rest of the review of systems is unremarkable. Previous history: She was seen in house. She presented to the hospital with complaints of abdominal pain. She complained of pain all over , on her abdomen, back, chest, legs. She reported that the abdominal pain had been going on for 2 months but worsened over the past 3 days. The pain is generalized abdominal pain, 8/10, intermittent, nonradiating, associated with nausea and vomiting. She also had occasional chills with no fever. She reported the pain to be just generalized discomfort. When asked about weight loss she reports about 1-2 lb of weight loss but not more. She also complained of years of shortness of breath with no change. She denied urinary symptoms and no lower extremity edema. Patient also complained of bloating, and low appetite. Her temp was 98.6?, pulse rate of 69, respiratory rate of 19, and oxygen saturation of 95% on room air. Labs: significant for PT of 27.7 INR of 2.3, sodium of 130, BUN of 11 with creatinine of 0.77, troponin 38 trended down to 37, BNP of 259, CT abdomen showed: New mass in the head neck and body of the pancreas measuring 4.5 x 6.5 cm worrisome for neoplasm. New bilateral pulmonary nodules. Upper abdominal varices. Large esophageal hernia, or intrathoracic stomach. Diverticulosis of the colon. Probable small uterine fibroid. Hospital course: The patient was evaluated for abdominal pain. I recommended, Biopsy of the pancreas. Discussed with IR who recommended holding both aspirin and warfarin for 3 days prior to procedure which was to be scheduled for next Wednesday. After discussing with the patient, she preferred to come back at the time of the biopsy. Her INR of 1.6 at the day of discharge. She was noted to have hyponatremia which seems to be chronic around 130-131. BNP was noted to be mildly elevated around 200 which was the baseline for her, l ooking back at her previous readings. Not in acute CHF exacerbation. les. Upper abdominal varices. Large esophageal hernia Past medical history: Diabetes, COPD, CVA, hypertension. Review of Systems - Constitutional Reports system reviewed and no additional complaints, except as documented, Reports fatigue, Reports lack of energy, Reports malaise, Reports poor appetite, Denies weight loss - Eyes Reports system reviewed and no additional complaints, except as documented - ENT Reports system reviewed and no additional complaints, except as documented - Cardiovascular Reports system reviewed and no additional complaints, except as documented - Respiratory Reports no additional respiratory complaints - Gastrointestinal Reports system reviewed and no additional complaints, except as documented, Reports abdominal pain, Reports diarrhea, Reports nausea - Genitourinary Reports no additional female genitourinary complaints - Musculoskeletal Reports system reviewed and no additional complaints, except as documented - Integumentary/Breasts Skin/Breast: Reports no additional skin complaints - Neurologic Reports system reviewed and no additional complaints, except as documented, Reports headache(s), Reports weakness, Denies loss of vision - Psychiatric Reports system reviewed and no additional complaints, except as documented - Endocrine Reports no additional endocrine complaints - Hematologic/Lymphatic Reports system reviewed and no additional complaints, except as documented - Allergic/Immunologic Reports system reviewed and no additional complaints, except as documented [facility] Medical History: Medical History (Last Reviewed 10/06/21 @ 12:12 by Hieu Eddy MD) Anxiety and depression Biventricular ICD (implantable cardioverter-defibrillator) in place Cardiomyopathy Congestive heart failure COPD (chronic obstructive pulmonary disease) Coronary artery disease Current use of anticoagulant therapy CVA (cerebral vascular accident) Diverticulitis Esophageal hernia GERD (gastroesophageal reflux disease) History of renal calculi HTN (hypertension) Hypercholesterolemia Hyponatremia Osteopenia Type 2 diabetes mellitus with hyperglycemia Umbilical hernia Functional capacity: uses cane/walker Patient : No Family History: Family History (Last Reviewed 10/06/21 @ 12:12 by Hieu Eddy MD) Father Medical history unknown Mother Diabetes Hypertension Surgical History: Surgical History (Last Reviewed 10/06/21 @ 12:12 by Hieu Eddy MD) History of hemicolectomy History of incisional hernia repair History of pacemaker Social History: Social History (Last Reviewed 10/06/21 @ 12:12 by Hieu Eddy MD) Living Situation History: Household Members: Family Housing: House Are you a primary care partner to a significant other at home: No Do you presently have visiting nurse or other home services: No Alcohol History Details: Currently Displaying Signs/Symptoms of Alcohol Withdrawal: No Tobacco History: Patient Tobacco Use Status: Never used Tobacco e-Cigarette/Vaping Use: Never Used Second Hand Smoke Exposure: No Substance Use History: Use of substances other than those prescribed or required for medical reasons : No Domestic Abuse History: Have you been hit, kicked, punched, or otherwise hurt by someone within the past year? If so, by whom?: No Do you feel safe in your current relationship?: No Healthcare Practices: Anabaptist Healthcare Practices: Cheondoism/ Evangelical Nutrition Assessment: Recently lost weight without trying: Yes How much weight loss: 24-33 pounds Eating poorly because of decreased appetite: Yes Nutrition screen score: 6 Nutrition Risks: Acute nausea or vomiting Patient : No : No Poor oral hygiene: No Occupation Assessmet: service: No Current occupational status: retired Oncology Screenings - ECOG Performance Status ECOG Performance Status: 1 Home Medications and Allergies Home Medications Medication Instructions Recorded Confirmed Type carbamazepine 200 mg tablet 200 mg PO DAILY 10/30/20 12/19/21 History budesonide-formoterol HFA 160 2 puff INHALATION BID 11/19/20 12/19/21 History mcg-4.5 mcg/actuation aerosol inhaler metformin 500 mg tablet,extended 500 mg PO BID 02/21/21 12/19/21 History release 24 hr food supplemt, lactose-reduced 1 ea PO DAILY 07/14/21 12/19/21 History (Ensure) multivitamin with folic acid 400 1 tab PO BEDTIME 07/21/21 12/19/21 History mcg tablet (Daily-Eve (with folic acid)) Allergies Allergy/AdvReac Type Severity Reaction Status Date / Time No Known Allergies Allergy Verified 12/19/21 11:53 Exam Vital signs: Vital Signs Temp 98.6 F 12/19/21 10:08 Pulse 69 12/19/21 10:08 Resp 18 12/19/21 10:08 BP 119/59 L 12/19/21 10:08 Pulse Ox 96 12/19/21 10:08 Weight 60 kg BMI result Body Mass Index 25.5 - Constitutional Present: no acute distress, mild distress - Routine HEENT Exam Head: Present: normal inspection Eye: Present: normal appearance ENT: Present: mucous membranes moist - Routine Neck Exam Present: full ROM - Routine Respiratory Exam Present: CTAB - Routine Cardiovascular Exam Cardiovascular: Present: RRR, S1, S2 - Routine Abdominal Exam Present: soft, tenderness. Absent: nontender - Routine Rectal Exam Patient deferred: digital exam - Routine Extremities Exam Present: nontender - Routine Back/Spine/Pelvis Exam Back/Spine: Present: full ROM - Routine Skin Exam Present: intact - Routine Neurological Exam Present: alert, oriented X3 - Routine Psychiatric Exam Present: normal affect Data - Labs CBC & Chem 7: 01/15/22 10:59 01/15/22 10:59 Assessment and Plan Patient Active problem list reviewed?: Yes (1) Pancreatic carcinoma Status: Acute Assessment and plan: This is a pleasant 70 year-old lady who presents with a couple of months history of abdominal pain that recently worsened. CT scan of the abdomen revealed: New mass in the head, neck and body the pancreas measuring 4.5 x 6.5 cm worrisome for neoplasm. New bilateral pulmonary nodules. Upper abdominal varices. Large esophageal hernia or intrathoracic stomach. Diverticulosis of the colon. Probable small uterine fibroid. Concern was for pancreatic cancer. Tumor marker Ca 19/9 is :4524. Biopsy was done on 11/12. Pathology revealed: Positive for atypical mucinous neoplasm. Moderately cellular specimen consisting of sheets of mucinous epithelium with cytologic atypia characterized by loss of clarity an irregularly shaped nuclei with Dr. chromatin in irregular nuclear membrane. Differential diagnosis includes an adenocarcinoma, mucinous cystic neoplasm and intraductal papillary mucinous neoplasm. I will proceed with a PET scan for further evaluation. This was done on 12/03, and revealed: Mild FDG activity in the pancreatic mass involving the head and adjacent pancreatic body corresponding to the recently biopsied malignancy. Multiple predominantly subcentimeter pulmonary nodules are present throughout the lungs likely represent metastases. Most of these are too small to be charac terized on the PET images but the largest shows FDG activity. No additional abnormality suspicious for metastatic or other malignant lesions are noted. Chronic left posterior parietal cerebral infarction Large hiatal hernia.. My plan was to proceed with systemic chemotherapy. She has been started on gemcitabine and Abraxane based regimen. After she had 3 cycles, he had CT scan. Repeat imaging from 04/04: CT abdomen: No appreciable change in the mass in the body of the pancreas from October [address] chest: Multiple bilateral pulmonary nodules not appreciably changed from previous PET/C T scan November 2020. Enlarged heart. Large esophageal hernia or intrathoracic stomach. I discussed the CT scan results with her, told her that even though there has not been much decrease in size of the tumor things do appear stable. Stable disease is considered a response to treatment. Hopefully things will decrease with the continued chemotherapy. She has been tolerating it well. She complains of intermittent diarrhea, after chemotherapy. CT scan of the abdomen from April 04: No appreciable change in the mass in the body of the pancreas from October [address] chest from April 04: Multiple bilateral pulmonary nodules not appreciably changed from previous PET/CT scan November 2020. Enlarged heart. Large esophageal hernia or intrathoracic stomach. She had a CT scan of the chest and abdomen on 08/22 which revealed: Previously described large 7 mm pulmonary nodules are smaller. No new pulmonary nodules are seen. A hypodense mass in the body of the pancreas and encasement surrounding the SMA is stable. The tail of the pancreas is not visualized, similar to previous study. No abnormal chest, abdomen and pelvic lymphadenopathy. Stable calcified left fibroid and right paramidline hernia containing fat and bowel loops. Moderate constipation. She is tolerating the treatment well. CA 19-9 was down to 1878 in August, 5 in May from 4855 in November. Most recently went up to 2550. l re-staged her with another CT scan. CT chest revealed:. Interval increase in size in some of the larger pulmonary nodules compared to August 2021 exam. I had shared the results with her and her son, at her last visit. Explained to them that it appears that the disease is getting refractory to the current regimen. I will need to switch her to a different protocol. Oxaliplatin with 5 FU and leucovorin, would be 1 option.. She would need a Port-A-Cath placed for that and an infusion pump for 24 hours. She needed time to think and reflect. She is here today for a follow-up however, she is still undecided how she would want to proceed. I went over the details of the treatment including the pros and the cons. Explained the procedure for the Port-A-Cath placement as well as the risks and benefits of it. I offered to give 1 cycle 2 try it out, and see how she would tolerate it. PLAN: She tells me that she needs more time to make a decision. One of her sons is going to be coming in soon. She would like to consult with all her family and then make a decision. Her son will be calling me early next week. In the meantime, will sent prescription for Magic mouthwash for her oral candidiasis. I will follow-up on the tumor marker as well. I will see her back in a week, I will proceed according to her wishes. If she decides to proceed will place a Port-A-Cath and then get her started. Will proceed with 3 cycles and then week stage her with repeat imaging. All her questions were answered to their satisfaction. Thanks, CC: Dr. Lancaster. - Time Spent With Patient Time Spent with Patient (in minutes): 30
[2022-01-16 11:51] VITALS: BP 169/72; PULSE 66; RESP 18; TEMP 36.6; O2SAT 99; BMI 25.7
--- NOTE | 2022-01-16 12:19 | MHC.HEMONC ---
Platelets 100 yesterday-reported to Dr Cifuentes. No chemo therapy today. Dr Cifuentes into see pt to discuss plan for port a cath insertion and new chemo therapy regime. Family with pt during conversation with pt. Family states they will make a decision in one weeks time and will contact us once they make a decision.
--- NOTE | 2022-01-22 11:45 | MHC.HEMONC ---
Spoke with pt's son Eliot who states his mother is agreeable to port a cath insertion. Dr Cifuentes notified.
--- NOTE | 2022-01-22 16:00 | MHC.HEMONC ---
Order for port a cath insertion printed and given to Veronica Gentile to schedule
--- NOTE | 2022-01-22 16:13 | HO.HEMONCSCH ---
PORT CATH PLACEMENT APPT. IN PENDING STATUS IN RADIOLOGY. RADIOLOGY WILL CALL W/APPT DATE & TIME.
--- NOTE | 2022-01-26 15:11 | MHC.HEMONC ---
Call from IR to report that Kalani's Port insertion is scheduled for 02/05/22 at 08:30. They stated that the nurses in IR will contact the patient with arrival information. Kalani to stop Elliquis for 3 days prior to procedure. Veronica Gentile to contact the patient.
--- NOTE | 2022-01-26 16:23 | MHC.HEMONCNA ---
[facility] FOR MAGIC MOUTHWASH INITIATED. TRACKING # [id number]
--- NOTE | 2022-01-27 10:49 | MHC.HEMONC ---
I called pt., but spoke with the son(Benedicto) regarding PA approval for miracle mouth. Son was informed that miracle mouth wash will be ready at [facility] in an hour.
--- NOTE | 2022-01-29 10:08 | MHC.HEMONC ---
Pt scheduled for port a cath insertion on 02/05/22. Chemotherapy cancelled for this week until port cath inserted
--- NOTE | 2022-02-03 15:17 | MHC.HEMONC ---
Received call from Eliot ( pt's son) stating pt accidentally took her eloquis today. Pt scheduled for port a cath insertion on 02/05/22. Radiology called. Per [facility] pt needs to me off eloquis for 3 days. Port a cath insertion rescheduled to Wednesday02/06/22 at 0830. Pt's son called and notified. Re iterated to family member to have pt not take eloquis for 3 days. Verbalizes understanding of info given
--- NOTE | 2022-02-06 11:39 | HO.HEMONCPA ---
PA FOR LIPOSOMAL IRINOTECAN ([id number]), LEUCOVORIN([id number]) & FLUOROURACIL([id number]) REQUESTED. AWAITING DECISION
--- NOTE | 2022-02-06 11:41 | MHC.HEMONC ---
Spoke with son Eliot to inform him of scheduled chemo teach on 02/13/22 and chemotherapy scheduled for 02/17/22 for his mother. Verbalizes understanding
--- NOTE | 2022-02-06 13:31 | HO.HEMONCPA ---
PA FOR LIPOSOMAL IRINOTECAN -[id number] APRROVED.AUTH #[id number] DOS -02/10/22 to 08/08/22. NO PA REQUIRED FOR LEUCOVORIN -[id number] & FLUOROURACIL -[id number] PER [employer] WE[employer]ITE ON 02/06/22
--- NOTE | 2022-02-06 14:39 | HO.HEMONCPA ---
PA FOR ONIVYDE (IRINOTECAN LIPOSOME) WAS APPROVED . DOS-02/10/22 TO 08/08/22 AUTH#[id number]
--- NOTE | 2022-02-13 11:06 | MHC.HEMONC ---
Pt here with her son Benedicto for teaching for new chemo treatment plan for liposomal irinotecan, leucovorin and 5fu pump. Schedule, common side effects and 46 hour pump discussed. All questions answered and pt aware of next appointment. New right side port site undressed, healing well with no open areas redness and minimal swelling. Some bruising to port site and lower on the breast noted. Pt to look at home for anti-nausea meds and bring them with her on Wednesday.
[2022-02-17 08:34] LABS: MANUAL DIFF FLAG NO
[2022-02-17 08:37] VITALS: BP 153/74; PULSE 80; RESP 18; TEMP 36.3; O2SAT 97; BMI 25.4
[2022-02-17 08:39] LABS: Basophils Percent Auto 0.1 % (0-2); Eosinophils Absolute Auto 0.3 X10*3/uL (0.0-0.4); Eosinophils Percent Auto 3.4 % (0-4); Hematocrit 38.3 % (37.0-47.0); Hemoglobin 12.2 g/dl (12.0-16.0); Imm Gran Abs Auto 0.03 X10*3/uL (0.00-0.03); Imm Gran Pct Auto 0.4 % (0.0-0.4); Lymphocytes Absolute Auto 1.1 X10*3/uL (1.2-4.9); Lymphocytes Percent Auto 15.3 % (20-40); Mean Corpuscular HGB Conc 31.9 g/dl (31.0-35.0); Mean Corpuscular Hemoglobin 29.9 pg (27.0-33.0); Mean Corpuscular Volume 93.9 fL (80.0-98.0); Mean Platelet Volume 10.4 fL (9.4-12.3); Monocytes Absolute Auto 0.5 X10*3/uL (0.1-1.2); Monocytes Percent Auto 7.1 % (2-11); Neutrophils Absolute Auto 5.5 x10*3/uL (2.0-8.3); Neutrophils Percent Auto 73.7 % (45-73); Platelet Count 103 X10*3/uL (160-400); Red Blood Count 4.08 X10*6/uL (4.20-5.50); Red Cell Distribution Width 13.3 % (11.0-16.0); White Blood Count 7.5 X10*3/uL (4.8-10.8)
[2022-02-17 08:53] LABS: Alanine Aminotransferase 56 U/L (0-31); Alkaline Phosphatase 66 U/L (39-117); Anion Gap 13 (12-20); Aspartate Amino Transferase 38 U/L (5-31); Bilirubin Total 0.3 mg/dL (0.0-1.0); Blood Urea Nitrogen 15 mg/dL (9-16); Calcium 9.2 mg/dL (8.4-10.2); Carbon Dioxide 25 mmol/L (22-29); Chloride 104 mmol/L (96-108); Creatinine Clr Calc Pharmacy 48.5; Estimated Glomerular Filt Rate > 60; Glucose Random 208 mg/dL (60-115); Potassium 4.2 mmol/L (3.3-5.1); Sodium 138 mmol/L (135-145); Total Protein 6.8 g/dL (6.5-8.0)
[2022-02-17] MEDS: dexAMETHasone sod phosphate/NS 12 MG/50 ML PIGGYBACK 200 MG IV (09:05)
[2022-02-17] MEDS: Atropine Sulfate 1 MG/ML VIAL 0.5 MG SUBCUT (09:07)
[2022-02-17 09:09] LABS: Magnesium 1.7 mg/dL (1.6-2.6)
[2022-02-17 09:11] LABS: HBS Num1 1.72 mIU/mL (0-7.99); HBc Num1 0.09 S/CO (0.00-0.79); HBsAGNum1 0.22 S/CO (0.00-0.99); Hepatitis B Core Antibody Nonreactive (Nonreactive); Hepatitis B Surface Antigen Negative (Negative); ~Hepatitis B Surface Antibody NONREACTIVE (Nonreactive)
--- NOTE | 2022-02-17 09:46 | MHC.HEMONCSW ---
MET WITH PT WHO IS KNOWN TO ME FROM PREVIOUS ENCOUNTERS. RECEIVING CHEMO FOR PANCREATIC CANCER. CAM MAKER PRESENT. REPORTS COPING WELL, GOOD SUPPORTS IN PLACE. CHEERFUL ATTITUDE. REMINDED HER OF MY AVAILABILITY. EDUCATION AND SUPPORT PROVIDED.
[2022-02-17] MEDS: Leucovorin Calcium 640 MG in Dextrose 5 % 250 ML 141 MG IV (11:56)
[2022-02-17] MEDS: oxyCODONE HCl Immed Release 5 MG TABLET PO (12:13)
[2022-02-17] MEDS: FLUOROURACIL IVCONT (14:00)
[2022-02-17] MEDS: SODIUM CHLORIDE 0.9% IVCONT (14:00)
--- NOTE | 2022-02-17 14:44 | MHC.HEMONC ---
Pt ere for C1D1 Liposomal Irinotecan/ Leucovorin/5FU. Port accessed with blood return noted. Labs drawn from port-specimen to lab. Pt states she is having diarrhea-last episode yesterday. Continues with fatigue relieved with naps. c/o back pain 07/01-states she did not take her oxycodone today. Dr Clark covering for Dr Cifuentes notified of pain. 5mg oxycodone given for 07/01 back pain with relief per pt. Lab results reviewed-okay to receive treatment today. Pre medicated with zofran, decadron, atropine sulfate 0.5mg sc in right arm-tolerated well. Pt has occasional congested non productive cough. SAO2 100% on room air. Liposomal Irinotecan/Leucovorin given as directed-tolerated well. 5FU home chemo pump started. Pt states she is very nervous about pump. Educated on chemo pump and when to call department for problems. Son Eliot present for education. Home spill kit explained and given. Follow up appointment scheduled-pt to return on 02/19/22 for chemo pump take down.
[2022-02-19] MEDS: Heparin Sodium,Porcine Flush 500 UNIT/5 ML SYRINGE IVFLUSH (10:41)
--- NOTE | 2022-02-19 11:01 | MHC.HEMONC ---
Pt here for chemo pump take down. Pt states she had a headache over last 2 days and some nausea. Denies any problems with chemo pump over last 2 days. Port flushed with heparin and de accessed. Pt to return next week for lab draw.
--- NOTE | 2022-02-24 11:11 | MHC.HEMONC ---
Spoke with son Eliot-states his mom was hospitalized on Wednesday02/20/22 at [facility]. States she was weak and having diarrhea. States his mom is having an x-ray of abdomen today.
--- NOTE | 2022-03-02 15:11 | MHC.HEMONC ---
Received call from Pt's son stating his mother would not be in tomorrow for chemo therapy as she is still not feeling well after last chemo. Dr Cifuentes notified. Plan for pt to have lab work drawn on 03/10/22.
[2022-03-10 10:32] LABS: MANUAL DIFF FLAG NO
[2022-03-10 10:43] LABS: Basophils Percent Auto 0.7 % (0-2); Hematocrit 39.3 % (37.0-47.0); Hemoglobin 12.4 g/dl (12.0-16.0); Imm Gran Abs Auto 0.03 X10*3/uL (0.00-0.03); Imm Gran Pct Auto 0.5 % (0.0-0.4); Lymphocytes Percent Auto 17.3 % (20-40); Mean Corpuscular HGB Conc 31.6 g/dl (31.0-35.0); Mean Corpuscular Hemoglobin 28.9 pg (27.0-33.0); Mean Corpuscular Volume 91.6 fL (80.0-98.0); Mean Platelet Volume 10.3 fL (9.4-12.3); Monocytes Absolute Auto 0.4 X10*3/uL (0.1-1.2); Monocytes Percent Auto 7.1 % (2-11); Neutrophils Absolute Auto 3.2 x10*3/uL (2.0-8.3); Neutrophils Percent Auto 56.4 % (45-73); Platelet Count 161 X10*3/uL (160-400); Red Blood Count 4.29 X10*6/uL (4.20-5.50); Red Cell Distribution Width 13.3 % (11.0-16.0); White Blood Count 5.6 X10*3/uL (4.8-10.8)
[2022-03-10 10:53] LABS: Alanine Aminotransferase 25 U/L (0-31); Albumin Level 4.2 g/dL (3.5-5.0); Alkaline Phosphatase 62 U/L (39-117); Anion Gap 15 (12-20); Aspartate Amino Transferase 33 U/L (5-31); Bilirubin Total 0.3 mg/dL (0.0-1.0); Blood Urea Nitrogen 13 mg/dL (9-16); Calcium 9.8 mg/dL (8.4-10.2); Carbon Dioxide 24 mmol/L (22-29); Chloride 105 mmol/L (96-108); Creatinine Clr Calc Pharmacy 50.2; Estimated Glomerular Filt Rate > 60; Glucose Random 179 mg/dL (60-115); Sodium 140 mmol/L (135-145); Total Protein 7.1 g/dL (6.5-8.0)
--- NOTE | 2022-03-10 15:42 | MHC.HEMONC ---
Pt here for lab draw. LAbs drawn by print line supervisor- specimen to lab. Pt states she can't take the chemo anymore-states last chemo treatment killed her Dr Cifuentes notified-Follow up appointment scheduled with Dr Cifuentes for 03/11/22. Pt's son Eliot called and notified
--- NOTE | 2022-03-11 16:13 | PM.HEMONCPN ---
Medical Summary - Medical Summary Date of Service: 03/11/22 Chief complaint: Follow-up for: Pancreatic carcinoma. Medical Summary: DIAGNOSIS: Pancreatic Cancer. CURRENT THERAPY: Completed Gemcitabine Abraxane., cycle 14, day 15. 01/15. She then received: One cycle of Liposomal irinotecan with 5 FU leucovorin on 02/17. Interval History Interval history: This is a pleasant 71 year-old lady, here for a follow-up visit. She tells me she has not been feeling, too well. The recent chemotherapy knocked her down for a loop. She had GI upset. She had diarrhea. Occasional gross blood in the stools. Her appetite dropped. She has had coughing of yellow phlegm. Denies fever but has had chills. She did test negative for COVID. She is feeling better but still very tired. She denies dysphagia or odynophagia. No headache no dizziness. Denies any fever nor chills. She denies any chest pain or trouble breathing. Sometimes, she complains of pain in her belly around the periumbilical area that radiates to the side and then to the back. It comes and goes. Pain medicines are helping. Her weight is down. She has chronic pain in the back. She is in good spirits. Rest of the review of systems is unremarkable. Previous history: She was seen in house. She presented to the hospital with complaints of abdominal pain. She complained of pain all over , on her abdomen, back, chest, legs. She reported that the abdominal pain had been going on for 2 months but worsened over the past 3 days. The pain is generalized abdominal pain, 8/10, intermittent, nonradiating, associated with nausea and vomiting. She also had occasional chills with no fever. She reported the pain to be just generalized discomfort. When asked about weight loss she reports about 1-2 lb of weight loss but not more. She also complained of years of shortness of breath with no change. She denied urinary symptoms and no lower extremity edema. Patient also complained of bloating, and low appetite. Her temp was 98.6?, pulse rate of 69, respiratory rate of 19, and oxygen saturation of 95% on room air. Labs: significant for PT of 27.7 INR of 2.3, sodium of 130, BUN of 11 with creatinine of 0.77, troponin 38 trended down to 37, BNP of 259, CT abdomen showed: New mass in the head neck and body of the pancreas measuring 4.5 x 6.5 cm worrisome for neoplasm. New bilateral pulmonary nodules. Upper abdominal varices. Large esophageal hernia, or intrathoracic stomach. Diverticulosis of the colon. Probable small uterine fibroid. Hospital course: The patient was evaluated for abdominal pain. I recommended, Biopsy of the pancreas. Discussed with IR who recommended holding both aspirin and warfarin for 3 days prior to procedure which was to be scheduled for next Wednesday. After discussing with the patient, she preferred to come back at the time of the biopsy. Her INR of 1.6 at the day of discharge. She was noted to have hyponatremia which seems to be chronic around 130-131. BNP was noted to be mildly elevated around 200 which was the baseline for her, looking back at her previous readings. Not in acute CHF exacerbation. les. Upper abdominal varices. Large esophageal hernia Past medical history: Diabetes, COPD, CVA, hypertension. Review of Systems - Constitutional Reports system reviewed and no additional complaints, except as documented, Reports anorexia, Reports chills, Reports lack of energy, Reports malaise, Reports poor appetite, Reports weight loss - Eyes Reports system reviewed and no additional complaints, except as documented - ENT Reports system reviewed and no additional complaints, except as documented - Cardiovascular Reports system reviewed and no additional complaints, except as documented - Respiratory Reports no additional respiratory complaints - Gastrointestinal Reports system reviewed and no additional complaints, except as documented, Reports abdominal pain, Reports change in stools, Reports heartburn, Reports diarrhea - Genitourinary Reports no additional female genitourinary complaints - Musculoskeletal Reports system reviewed and no additional complaints, except as documented - Integumentary/Breasts Skin/Breast: Reports no additional skin complaints - Neurologic Reports system reviewed and no additional complaints, except as documented, Reports headache(s), Reports weakness, Denies loss of vision - Psychiatric Reports system reviewed and no additional complaints, except as documented - Endocrine Reports no additional endocrine complaints - Hematologic/Lymphatic Reports system reviewed and no additional complaints, except as documented - Allergic/Immunologic Reports system reviewed and no additional complaints, except as documented [facility] Medical History: Medical History (Last Reviewed 02/05/22 @ 08:34 by Hieu Eddy MD) Anxiety and depression Biventricular ICD (implantable cardioverter-defibrillator) in place Cardiomyopathy Congestive heart failure COPD (chronic obstructive pulmonary disease) Coronary artery disease Current use of anticoagulant therapy CVA (cerebral vascular accident) Diverticulitis Esophageal hernia GERD (gastroesophageal reflux disease) History of renal calculi HTN (hypertension) Hypercholesterolemia Hyponatremia Osteopenia Type 2 diabetes mellitus with hyperglycemia Umbilical hernia Functional capacity: uses cane/walker Family History: Family History (Last Reviewed 02/05/22 @ 08:34 by Hieu Eddy MD) Father Medical history unknown Mother Diabetes Hypertension Surgical History: Surgical History (Last Reviewed 02/05/22 @ 08:34 by Hieu Eddy MD) History of hemicolectomy History of incisional hernia repair History of pacemaker Social History: Social History (Last Reviewed 02/05/22 @ 08:34 by Hieu Eddy MD) Living Situation History: Household Members: Family Housing: House Are you a primary healthcare or medical to a significant other at home: No Do you presently have visiting nurse or other home services: No Tobacco History: Patient Tobacco Use Status: Never used Tobacco e-Cigarette/Vaping Use: Never Used Second Hand Smoke Exposure: No Occupation Assessmet: service: No Current occupational status: retired Oncology Screenings - ECOG Performance Status ECOG Performance Status: 1 Home Medications and Allergies Home Medications Medication Instructions Recorded Confirmed Type carbamazepine 200 mg tablet 200 mg PO DAILY 10/30/20 03/12/22 History budesonide-formoterol HFA 160 2 puff INHALATION BID 11/19/20 03/12/22 History mcg-4.5 mcg/actuation aerosol inhaler metformin 500 mg tablet,extended 500 mg PO BID 02/21/21 03/12/22 History release 24 hr food supplemt, lactose-reduced 1 ea PO DAILY 07/14/21 03/12/22 History (Ensure) multivitamin with folic acid 400 1 tab PO BEDTIME 07/21/21 03/12/22 History mcg tablet (Daily-Eve (with folic acid)) amitriptyline 25 mg tablet 1 tab PO BEDTIME 02/17/22 03/12/22 History Allergies Allergy/AdvReac Type Severity Reaction Status Date / Time No Known Allergies Allergy Verified 03/12/22 10:31 Exam Vital signs: Vital Signs Temp 97.4 F 02/17/22 08:37 Pulse 80 02/17/22 08:37 Resp 18 02/17/22 08:37 BP 153/74 H 02/17/22 08:37 Pulse Ox 97 02/17/22 08:37 Weight 59.8 kg BMI result Body Mass Index 25.4 - Constitutional Present: no acute distress, mild distress - Routine HEENT Exam Head: Present: normal inspection Eye: Present: normal appearance ENT: Present: mucous membranes moist - Routine Neck Exam Present: full ROM - Routine Respiratory Exam Present: CTAB - Routine Cardiovascular Exam Cardiovascular: Present: RRR, S1, S2 - Routine Abdominal Exam Present: soft, tenderness. Absent: nontender - Routine Rectal Exam Patient deferred: digital exam - Routine Extremities Exam Present: nontender - Routine Back/Spine/Pelvis Exam Back/Spine: Present: full ROM - Routine Skin Exam Present: intact - Routine Neurological Exam Present: alert, oriented X3 - Routine Psychiatric Exam Present: normal affect Data - Labs CBC & Chem 7: 03/10/22 10:30 03/10/22 10:30 Assessment and Plan Patient Active problem list reviewed?: Yes (1) Pancreatic carcinoma Status: Acute Assessment and plan: This is a pleasant 70 year-old lady who presents with a couple of months history of abdominal pain that recently worsened. CT scan of the abdomen revealed: New mass in the head, neck and body the pancreas measuring 4.5 x 6.5 cm worrisome for neoplasm. New bilateral pulmonary nodules. Upper abdominal varices. Large esophageal hernia or intrathoracic stomach. Diverticulosis of the colon. Probable small uterine fibroid. Concern was for pancreatic cancer. Tumor marker Ca 19/9 is :4524. Biopsy was done on 11/12. Pathology revealed: Positive for atypical mucinous neoplasm. Moderately cellular specimen consisting of sheets of mucinous epithelium with cytologic atypia characterized by loss of clarity an irregularly shaped nuclei with Dr. chromatin in irregular nuclear membrane. Differential diagnosis includes an adenocarcinoma, mucinous cystic neoplasm and intraductal papillary mucinous neoplasm. I will proceed with a PET scan for further evaluation. This was done on 12/03, and revealed: Mild FDG activity in the pancreatic mass involving the head and adjacent pancreatic body corresponding to the recently biopsied malignancy. Multiple predominantly subcentimeter pulmonary nodules are present throughout the lungs likely represent metastases. Most of these are too small to be characterized on the PET images but the largest shows FDG activity. No additional abnormality suspicious for metastatic or other malignant lesions are noted. Chronic left posterior parietal cerebral infarction Large hiatal hernia.. My plan was to proceed with systemic chemotherapy. She has been started on gemcitabine and Abraxane based regimen. After she had 3 cycles, he had CT scan. Repeat imaging from 04/04: CT abdomen: No appreciable change in the mass in the body of the pancreas from October [address] chest: Multiple bilateral pulmonary nodules not appreciably changed from previous PET/CT scan November 2020. Enlarged heart. Large esophageal hernia or intrathoracic stomach. I discussed the CT scan results with her, told her that even though there has not been much decrease in size of the tumor things do appear stable. Stable disease is considered a response to treatment. Hopefully things will decrease with the continued chemotherapy. She has been tolerating it well. She complains of intermittent diarrhea, after chemotherapy. CT scan of the abdomen from April 04: No appreciable change in the mass in the body of the pancreas from October [address] chest from April 04: Multiple bilateral pulmonary nodules not appreciably changed from previous PET/CT scan November 2020. Enlarged heart. Large esophageal hernia or intrathoracic stomach. She had a CT scan of the chest and abdomen on 08/22 which revealed: Previously described large 7 mm pulmonary nodules are smaller. No new pulmonary nodules are seen. A hypodense mass in the body of the pancreas and encasement surrounding the SMA is stable. The tail of the pancreas is not visualized, similar to previous study. No abnormal chest, abdomen and pelvic lymphadenopathy. Stable calcified left fibroid and right paramidline hernia containing fat and bowel loops. Moderate constipation. She is tolerating the treatment well. CA 19-9 was down to 1878 in August, 2055 in May from 4855 in November. Most recently went up to 2550. l re-staged her with another CT scan. CT chest revealed:. Interval increase in size in some of the larger pulmonary nodules compared to August 2021 exam. I had shared the results with her and her son, at her last visit. Explained to them that it appears that the disease is getting refractory to the current regimen. I will need to switch her to a different protocol. Oxaliplatin with 5 FU and leucovorin, would be 1 option.. I went over the details of the treatment including the pros and the cons. Explained the procedure for the Port-A-Cath placement as well as the risks and benefits of it. She had a Port-A-Cath placed for that. She needed time to think and reflect. She recieved one cycle on 02/17. She did not tolerate it well. She had some nausea abdominal pain and diarrhea. She mentions some blood in the stools. That is going away however she is still feeling rather fatigued. She does not wish to continue that regimen. She and her son are concerned that there were few treatment delays with the Gemzar Abraxane and that could have accounted for the progression seen on the CT scan. Would like to go back to that regimen since she was tolerating well. PLAN: Will treat her with Gemzar and Abraxane based regimen for another couple of treatments and then get a short interval imaging, to gauge the response. I will follow-up on the tumor marker as well. In the meantime, she has to have some teeth taken care off, so she will get those done. She has an appointment with the dentist tomorrow. She will return next Wednesday, for the treatment. I will see her back in a week, I will proceed according to her wishes. Will proceed with 3 cycles and then restage her with repeat imaging. All her questions were answered to their satisfaction. Thanks, CC: Dr. Lancaster. - Time Spent With Patient Time Spent with Patient (in minutes): 30
[2022-03-11 16:14] VITALS: BP 149/61; PULSE 72; RESP 16; TEMP 36.6; O2SAT 97; BMI 25.1
[2022-03-13 08:50] LABS: Carbohydrate Antigen 19-9 6267 U/mL (<34)
[2022-03-19 10:38] LABS: MANUAL DIFF FLAG NO
[2022-03-19 11:04] LABS: Alanine Aminotransferase 20 U/L (0-31); Albumin Level 4.3 g/dL (3.5-5.0); Alkaline Phosphatase 60 U/L (39-117); Anion Gap 12 (12-20); Aspartate Amino Transferase 24 U/L (5-31); Bilirubin Total 0.4 mg/dL (0.0-1.0); Blood Urea Nitrogen 20 mg/dL (9-16); Calcium 9.6 mg/dL (8.4-10.2); Carbon Dioxide 29 mmol/L (22-29); Chloride 102 mmol/L (96-108); Creatinine Clr Calc Pharmacy 48.2; Estimated Glomerular Filt Rate > 60; Glucose Random 135 mg/dL (60-115); Potassium 4.9 mmol/L (3.3-5.1); Sodium 138 mmol/L (135-145); Total Protein 7.3 g/dL (6.5-8.0)
[2022-03-19 11:13] LABS: Basophils Percent Auto 0.3 % (0-2); Eosinophils Absolute Auto 1.1 X10*3/uL (0.0-0.4); Eosinophils Percent Auto 18.5 % (0-4); Hemoglobin 12.3 g/dl (12.0-16.0); Imm Gran Abs Auto 0.01 X10*3/uL (0.00-0.03); Imm Gran Pct Auto 0.2 % (0.0-0.4); Lymphocytes Absolute Auto 1.3 X10*3/uL (1.2-4.9); Lymphocytes Percent Auto 21.4 % (20-40); Mean Corpuscular HGB Conc 31.5 g/dl (31.0-35.0); Mean Platelet Volume 10.8 fL (9.4-12.3); Monocytes Absolute Auto 0.5 X10*3/uL (0.1-1.2); Monocytes Percent Auto 8.2 % (2-11); Neutrophils Percent Auto 51.4 % (45-73); Platelet Count 132 X10*3/uL (160-400); Red Blood Count 4.24 X10*6/uL (4.20-5.50); Red Cell Distribution Width 13.5 % (11.0-16.0); White Blood Count 5.9 X10*3/uL (4.8-10.8)
--- NOTE | 2022-03-19 16:49 | MHC.HEMONC ---
Pt was here for pre-chemo labs, had blood drawn peripherally, departed clinic. Pt has chemo tx scheduled for the following morning.
[2022-03-20 10:29] VITALS: BMI 25.0
[2022-03-20 10:30] VITALS: BP 141/65; PULSE 62; RESP 18; TEMP 36.3; O2SAT 95
[2022-03-20] MEDS: Ondansetron ODT 8 MG TAB.RAPDIS TRANSLINGU (11:25)
[2022-03-20] MEDS: Acetaminophen 325 MG TABLET 650 MG PO (11:25)
[2022-03-20] MEDS: Famotidine/PF 20 MG/2 ML VIAL IVPUSH (11:26)
[2022-03-20] MEDS: diphenhydrAMINE HCL 50 MG/ML VIAL 25 MG IVPUSH (11:30)
[2022-03-20] MEDS: dexAMETHasone sod phosphate/NS 12 MG/50 ML PIGGYBACK 200 MG IV (11:32)
--- NOTE | 2022-03-20 14:50 | MHC.HEMONC ---
C13 DAY 1: GEMZAR/ABRAXANE. Port accessed without difficulty- positive blood return. Labs completed day prior per patient preference. Patient accompanied by son. Patient denies any new symptoms, reports slight nausea with no vomiting. Patient pre-medicated as ordered. Tolerated infusion- port de-accessed with heparin. Departure packet given.
--- NOTE | 2022-04-02 10:02 | MHC.HEMONC ---
Pt here for lab draw. Labs drawn by apartment community manager-specimen to lab. Pt states she continues with occasional diarrhea and fatigue. States she does not eat much. Ensure given to take home
[2022-04-02 10:21] LABS: MANUAL DIFF FLAG NO
[2022-04-02 10:38] LABS: Basophils Percent Auto 0.2 % (0-2); Eosinophils Absolute Auto 0.3 X10*3/uL (0.0-0.4); Eosinophils Percent Auto 6.4 % (0-4); Hemoglobin 11.9 g/dl (12.0-16.0); Imm Gran Abs Auto 0.01 X10*3/uL (0.00-0.03); Imm Gran Pct Auto 0.2 % (0.0-0.4); Lymphocytes Absolute Auto 1.1 X10*3/uL (1.2-4.9); Lymphocytes Percent Auto 23.2 % (20-40); Mean Corpuscular HGB Conc 31.3 g/dl (31.0-35.0); Mean Corpuscular Hemoglobin 28.9 pg (27.0-33.0); Mean Corpuscular Volume 92.2 fL (80.0-98.0); Mean Platelet Volume 10.5 fL (9.4-12.3); Monocytes Absolute Auto 0.6 X10*3/uL (0.1-1.2); Monocytes Percent Auto 12.1 % (2-11); Neutrophils Absolute Auto 2.6 x10*3/uL (2.0-8.3); Neutrophils Percent Auto 57.9 % (45-73); Platelet Count 100 X10*3/uL (160-400); Red Blood Count 4.12 X10*6/uL (4.20-5.50); White Blood Count 4.6 X10*3/uL (4.8-10.8)
[2022-04-02 10:48] LABS: Alanine Aminotransferase 36 U/L (0-31); Albumin Level 4.3 g/dL (3.5-5.0); Alkaline Phosphatase 68 U/L (39-117); Anion Gap 13 (12-20); Aspartate Amino Transferase 30 U/L (5-31); Bilirubin Total 0.2 mg/dL (0.0-1.0); Blood Urea Nitrogen 14 mg/dL (9-16); Calcium 9.7 mg/dL (8.4-10.2); Carbon Dioxide 26 mmol/L (22-29); Chloride 105 mmol/L (96-108); Creatinine Clr Calc Pharmacy 48.6; Estimated Glomerular Filt Rate > 60; Glucose Random 193 mg/dL (60-115); Potassium 5.1 mmol/L (3.3-5.1); Sodium 139 mmol/L (135-145); Total Protein 7.2 g/dL (6.5-8.0)
[2022-04-03 10:30] VITALS: BMI 25.2
[2022-04-03] MEDS: Acetaminophen 325 MG TABLET 650 MG PO (11:19)
[2022-04-03] MEDS: dexAMETHasone sod phosphate/NS 12 MG/50 ML PIGGYBACK 200 MG IV (11:19)
[2022-04-03] MEDS: diphenhydrAMINE HCL 50 MG/ML VIAL 25 MG IVPUSH (11:20)
[2022-04-03 11:25] VITALS: BP 134/58; PULSE 68; RESP 18; TEMP 36.7; O2SAT 97
[2022-04-03] MEDS: PACLitaxeL protein-bound 200 MG in Container,Empty 0 ML 80 MG IV (12:28)
--- NOTE | 2022-04-03 14:55 | MHC.HEMONC ---
Pt here for C15D15 Abraxane/Gemzar. Port accessed with blood return noted. Labs drawn yesterday reviewed. Dr Cifuentes notified of platelets of 100-okay to receive treatment today. Pt states she continues with fatigue, diarrhea, nausea, poor appetite most days. Encouraged to stay hydrated, take anti diarrhea as needed, call when symptoms arise. Ensure given. Pre medicated with zofran, decadron, tylenol, benadryl. Abraxane/Gemzar given as directed-tolerated well. Port flushed with heparin and de accessed. Pt has an upcoming appointment with oral surgeon for tooth extraction-will notify Dr Cifuentes. Discharge packet given with next appointment scheduled
[2022-04-16 10:49] LABS: Basophils Percent Auto 0.2 % (0-2); Eosinophils Absolute Auto 0.1 X10*3/uL (0.0-0.4); Hemoglobin 12.2 g/dl (12.0-16.0); Imm Gran Abs Auto 0.02 X10*3/uL (0.00-0.03); PLT CLUMP 1; Red Cell Distribution Width 14.5 % (11.0-16.0); SCAN SMEAR FLAG 1
[2022-04-16 10:51] LABS: Eosinophils Percent Auto 2.9 % (0-4); Hematocrit 38.9 % (37.0-47.0); Imm Gran Pct Auto 0.4 % (0.0-0.4); Lymphocytes Percent Auto 22.1 % (20-40); Mean Corpuscular HGB Conc 31.4 g/dl (31.0-35.0); Mean Corpuscular Hemoglobin 28.8 pg (27.0-33.0); Monocytes Absolute Auto 0.5 X10*3/uL (0.1-1.2); Neutrophils Absolute Auto 2.9 x10*3/uL (2.0-8.3); Neutrophils Percent Auto 64.4 % (45-73); Red Blood Count 4.23 X10*6/uL (4.20-5.50)
[2022-04-16 10:58] LABS: White Blood Count 4.5 X10*3/uL (4.8-10.8)
[2022-04-16 10:59] LABS: MANUAL DIFF FLAG NO; Platelet Count 136 X10*3/uL (160-400)
[2022-04-16 11:05] LABS: Alanine Aminotransferase 42 U/L (0-31); Albumin Level 4.2 g/dL (3.5-5.0); Alkaline Phosphatase 67 U/L (39-117); Anion Gap 11 (12-20); Aspartate Amino Transferase 34 U/L (5-31); Bilirubin Total 0.3 mg/dL (0.0-1.0); Blood Urea Nitrogen 17 mg/dL (9-16); Calcium 9.5 mg/dL (8.4-10.2); Carbon Dioxide 28 mmol/L (22-29); Chloride 104 mmol/L (96-108); Creatinine Clr Calc Pharmacy 42.8; Estimated Glomerular Filt Rate 57; Glucose Random 138 mg/dL (60-115); Potassium 4.4 mmol/L (3.3-5.1); Sodium 139 mmol/L (135-145)
--- NOTE | 2022-04-16 16:22 | MHC.HEMONC ---
Pre-chemo labs completed and reviewed for treatment on 04/17/22
[2022-04-17 10:00] VITALS: BP 132/63; PULSE 77; RESP 16; TEMP 36.7; O2SAT 97
[2022-04-17 10:01] VITALS: BMI 25.0
[2022-04-17] MEDS: Ondansetron ODT 8 MG TAB.RAPDIS TRANSLINGU (10:43)
[2022-04-17] MEDS: Acetaminophen 325 MG TABLET 650 MG PO (10:43)
[2022-04-17] MEDS: diphenhydrAMINE HCL 50 MG/ML VIAL 25 MG IVPUSH (10:44)
[2022-04-17] MEDS: dexAMETHasone sod phosphate/NS 12 MG/50 ML PIGGYBACK 200 MG IV (11:42)
[2022-04-17] MEDS: CONTAINER EMPTY IV (12:00)
[2022-04-17] MEDS: PACLITAXEL PROTEIN BOUND IV (12:00)
--- NOTE | 2022-04-17 13:23 | MHC.HEMONC ---
Addendum entered by Toyin Gorman RN 04/17/22 13:25: pt son report dental work will be done 06/02, this is pt off week of chemo Original Note: pt tolerated tx well, no s/sx of reaction. pt c/o dry mouth script written for humidifier.
[2022-04-30 09:54] LABS: MANUAL DIFF FLAG NO
[2022-04-30 10:13] LABS: Basophils Percent Auto 0.5 % (0-2); Eosinophils Absolute Auto 0.2 X10*3/uL (0.0-0.4); Eosinophils Percent Auto 4.1 % (0-4); Hemoglobin 12.2 g/dl (12.0-16.0); Imm Gran Abs Auto 0.01 X10*3/uL (0.00-0.03); Imm Gran Pct Auto 0.2 % (0.0-0.4); Lymphocytes Percent Auto 23.2 % (20-40); Mean Corpuscular HGB Conc 31.3 g/dl (31.0-35.0); Mean Corpuscular Hemoglobin 28.9 pg (27.0-33.0); Mean Corpuscular Volume 92.4 fL (80.0-98.0); Mean Platelet Volume 10.7 fL (9.4-12.3); Monocytes Absolute Auto 0.4 X10*3/uL (0.1-1.2); Monocytes Percent Auto 10.5 % (2-11); Neutrophils Absolute Auto 2.6 x10*3/uL (2.0-8.3); Neutrophils Percent Auto 61.5 % (45-73); Platelet Count 105 X10*3/uL (160-400); Red Blood Count 4.22 X10*6/uL (4.20-5.50); Red Cell Distribution Width 15.2 % (11.0-16.0); White Blood Count 4.2 X10*3/uL (4.8-10.8)
[2022-04-30 10:27] LABS: Alanine Aminotransferase 50 U/L (0-31); Albumin Level 4.3 g/dL (3.5-5.0); Alkaline Phosphatase 64 U/L (39-117); Anion Gap 13 (12-20); Aspartate Amino Transferase 38 U/L (5-31); Bilirubin Total 0.3 mg/dL (0.0-1.0); Blood Urea Nitrogen 21 mg/dL (9-16); Calcium 9.1 mg/dL (8.4-10.2); Carbon Dioxide 25 mmol/L (22-29); Chloride 105 mmol/L (96-108); Creatinine Clr Calc Pharmacy 43.9; Estimated Glomerular Filt Rate 59; Glucose Random 187 mg/dL (60-115); Potassium 4.2 mmol/L (3.3-5.1); Sodium 139 mmol/L (135-145); Total Protein 7.1 g/dL (6.5-8.0)
--- NOTE | 2022-04-30 15:25 | MHC.HEMONC ---
Pt here for lab draw. Blood drawn by records and information manager-specimen to lab
[2022-05-01 10:00] VITALS: BP 129/62; PULSE 85; RESP 18; TEMP 36.9; O2SAT 98; BMI 25.1
[2022-05-01] MEDS: Acetaminophen 325 MG TABLET 650 MG PO (10:32)
[2022-05-01] MEDS: Ondansetron ODT 8 MG TAB.RAPDIS TRANSLINGU (10:33)
[2022-05-01] MEDS: diphenhydrAMINE HCL 50 MG/ML VIAL 25 MG IVPUSH (10:34)
[2022-05-01] MEDS: CONTAINER EMPTY IV (11:08)
[2022-05-01] MEDS: PACLITAXEL PROTEIN BOUND IV (11:08)
--- NOTE | 2022-05-01 16:06 | MHC.HEMONC ---
Pt here for C16D1 Gemzar/Abraxane. Labs drawn yesterday reviewed. Pt states she has had some diarrhea, nausea and fatigue over last 2 weeks. States has intermittent tingling in feet. Painful leg Varicosities noted. Dr Cifuentes notified of diarrhea and varicosities. Plan to renew imodium and order compression stockings per Dr Cifuentes. Okay to receive treatment today. Pre medicated with decadron, zofran, pepcid, tylenol, benadryl. Abraxane and Gemzar given as ordered-tolerated well. Port flushed with heparin and de accessed. Discharge packet given with next appointment scheduled.
[2022-05-14 09:56] VITALS: BP 157/67; PULSE 75; RESP 18; TEMP 36.3; O2SAT 97
[2022-05-14 09:58] LABS: MANUAL DIFF FLAG NO
[2022-05-14 10:04] LABS: Basophils Percent Auto 0.2 % (0-2); Eosinophils Absolute Auto 0.1 X10*3/uL (0.0-0.4); Hemoglobin 11.9 g/dl (12.0-16.0); Imm Gran Abs Auto 0.02 X10*3/uL (0.00-0.03); Imm Gran Pct Auto 0.4 % (0.0-0.4); Lymphocytes Absolute Auto 0.9 X10*3/uL (1.2-4.9); Mean Corpuscular HGB Conc 31.3 g/dl (31.0-35.0); Mean Corpuscular Volume 92.5 fL (80.0-98.0); Mean Platelet Volume 9.9 fL (9.4-12.3); Monocytes Absolute Auto 0.5 X10*3/uL (0.1-1.2); Monocytes Percent Auto 9.9 % (2-11); Neutrophils Absolute Auto 3.1 x10*3/uL (2.0-8.3); Neutrophils Percent Auto 66.5 % (45-73); Platelet Count 107 X10*3/uL (160-400); Red Blood Count 4.11 X10*6/uL (4.20-5.50); Red Cell Distribution Width 15.6 % (11.0-16.0); White Blood Count 4.7 X10*3/uL (4.8-10.8)
[2022-05-14 10:24] LABS: Alanine Aminotransferase 44 U/L (0-31); Albumin Level 4.4 g/dL (3.5-5.0); Alkaline Phosphatase 69 U/L (39-117); Anion Gap 11 (12-20); Aspartate Amino Transferase 45 U/L (5-31); Bilirubin Total 0.2 mg/dL (0.0-1.0); Blood Urea Nitrogen 20 mg/dL (9-16); Carbon Dioxide 27 mmol/L (22-29); Chloride 105 mmol/L (96-108); Creatinine Clr Calc Pharmacy 41.4; Estimated Glomerular Filt Rate 55; Glucose Random 192 mg/dL (60-115); Potassium 4.6 mmol/L (3.3-5.1); Sodium 138 mmol/L (135-145); Total Protein 7.1 g/dL (6.5-8.0)
--- NOTE | 2022-05-14 11:07 | MHC.HEMONC ---
Pt here for pre chemo lab draw. Blood drawn by supervisor wound-specimen to lab. Pt states her chest feels tight. Expiratory wheezes throughout lung hammer. Sao2 97% on room air. Dr Cifuentes notified. Pt instructed she can go to ED to be evaluated or she can have a breathing treatment here in [facility] or she could go home and give herself another updraft treatment. Pt opts to go home and give herself an updraft treatment at home
[2022-05-15 09:55] VITALS: BP 119/59; PULSE 78; RESP 18; TEMP 35.7; O2SAT 96; BMI 25.0
[2022-05-15] MEDS: dexAMETHasone 6 MG TABLET 12 MG PO (10:27)
[2022-05-15] MEDS: diphenhydrAMINE HCL 50 MG/ML VIAL 25 MG IVPUSH (10:27)
[2022-05-15] MEDS: Acetaminophen 325 MG TABLET 650 MG PO (10:27)
[2022-05-15] MEDS: PACLITAXEL PROTEIN BOUND IV (11:20)
[2022-05-15] MEDS: CONTAINER EMPTY IV (11:20)
--- NOTE | 2022-05-15 13:45 | MHC.HEMONC ---
Pt here for C17D1 GEMZAR/ABRAXANE. Port accessed with blood return noted. Labs drawn yesterday reviewed okay to receive chemo today. Pt states she continues with fatigue and occasional constipation and diarrhea. States her tongue gets dry on occasion encouraged to use magic mouth wash as needed. Pre medicated with zofran,benadryl,tylenol,pepcid. Abraxane/Gemzar given as ordered-tolerated well. Port flushed with heparin and de accessed. Discharge packet given with next appointment scheduled.
[2022-05-28 11:20] LABS: MANUAL DIFF FLAG NO
[2022-05-28 11:31] LABS: Basophils Percent Auto 0.2 % (0-2); Eosinophils Absolute Auto 0.2 X10*3/uL (0.0-0.4); Eosinophils Percent Auto 3.3 % (0-4); Hematocrit 35.7 % (37.0-47.0); Hemoglobin 11.2 g/dl (12.0-16.0); Imm Gran Abs Auto 0.02 X10*3/uL (0.00-0.03); Imm Gran Pct Auto 0.4 % (0.0-0.4); Lymphocytes Percent Auto 22.1 % (20-40); Mean Corpuscular HGB Conc 31.4 g/dl (31.0-35.0); Mean Corpuscular Volume 92.5 fL (80.0-98.0); Mean Platelet Volume 10.5 fL (9.4-12.3); Monocytes Absolute Auto 0.4 X10*3/uL (0.1-1.2); Monocytes Percent Auto 9.6 % (2-11); Neutrophils Absolute Auto 2.9 x10*3/uL (2.0-8.3); Neutrophils Percent Auto 64.4 % (45-73); Platelet Count 103 X10*3/uL (160-400); Red Blood Count 3.86 X10*6/uL (4.20-5.50); Red Cell Distribution Width 15.9 % (11.0-16.0); White Blood Count 4.6 X10*3/uL (4.8-10.8)
[2022-05-28 11:47] LABS: Alanine Aminotransferase 51 U/L (0-31); Albumin Level 4.1 g/dL (3.5-5.0); Alkaline Phosphatase 67 U/L (39-117); Anion Gap 11 (12-20); Aspartate Amino Transferase 44 U/L (5-31); Bilirubin Total 0.3 mg/dL (0.0-1.0); Blood Urea Nitrogen 13 mg/dL (9-16); Calcium 8.6 mg/dL (8.4-10.2); Carbon Dioxide 26 mmol/L (22-29); Chloride 107 mmol/L (96-108); Creatinine Clr Calc Pharmacy 51.1; Estimated Glomerular Filt Rate > 60; Glucose Random 139 mg/dL (60-115); Potassium 4.2 mmol/L (3.3-5.1); Sodium 140 mmol/L (135-145); Total Protein 6.7 g/dL (6.5-8.0)
--- NOTE | 2022-05-28 12:25 | MHC.HEMONC ---
Pt here for lab draw. Blood drawn by credit compliance officer-specimen to lab. Pt states she continues with fatigue and occasional anxiety and racing heartbeat. Pt to return tomorrow for chemo therapy.
[2022-05-29 10:03] VITALS: BP 146/65; PULSE 70; RESP 18; TEMP 35.6; O2SAT 97; BMI 40.6
[2022-05-29] MEDS: dexAMETHasone 6 MG TABLET 12 MG PO (10:26)
[2022-05-29] MEDS: Acetaminophen 325 MG TABLET 650 MG PO (10:27)
[2022-05-29] MEDS: diphenhydrAMINE HCL 50 MG/ML VIAL 25 MG IVPUSH (10:27)
[2022-05-29 10:57] VITALS: BMI 25.5
[2022-05-29] MEDS: CONTAINER EMPTY IV (11:21)
[2022-05-29] MEDS: PACLITAXEL PROTEIN BOUND IV (11:21)
--- NOTE | 2022-05-29 14:16 | MHC.HEMONC ---
Pt here for C17D15 Abraxane/Gemzar. Labs drawn yesterday reviewed-okay to receive treatment today. Pt states she continues with nausea and fatigue. Continues with gastric pain at times which she takes oxycontin and oxycodone. Pre medicated with decadron, zofran, benadryl, tylenol. Abraxane/Gemzar given as ordered-tolerated well. Port flushed with heparin and de accessed. Next appointment scheduled, discharge packet given.
--- NOTE | 2022-06-10 13:04 | HO.HEMONCSCH ---
LM reminding pt of apt for 06/11/22
[2022-06-11 10:47] VITALS: BP 135/60; PULSE 67; RESP 18; TEMP 36.6; O2SAT 98; BMI 24.8
[2022-06-11 10:52] LABS: MANUAL DIFF FLAG NO
[2022-06-11 11:05] LABS: Basophils Percent Auto 0.2 % (0-2); Eosinophils Absolute Auto 0.2 X10*3/uL (0.0-0.4); Eosinophils Percent Auto 3.6 % (0-4); Hematocrit 37.1 % (37.0-47.0); Hemoglobin 11.8 g/dl (12.0-16.0); Imm Gran Abs Auto 0.02 X10*3/uL (0.00-0.03); Imm Gran Pct Auto 0.4 % (0.0-0.4); Lymphocytes Absolute Auto 1.5 X10*3/uL (1.2-4.9); Lymphocytes Percent Auto 29.4 % (20-40); Mean Corpuscular HGB Conc 31.8 g/dl (31.0-35.0); Mean Corpuscular Hemoglobin 29.8 pg (27.0-33.0); Mean Corpuscular Volume 93.7 fL (80.0-98.0); Monocytes Absolute Auto 0.6 X10*3/uL (0.1-1.2); Neutrophils Absolute Auto 2.8 x10*3/uL (2.0-8.3); Neutrophils Percent Auto 55.4 % (45-73); Platelet Count 123 X10*3/uL (160-400); Red Blood Count 3.96 X10*6/uL (4.20-5.50); Red Cell Distribution Width 15.9 % (11.0-16.0); White Blood Count 5.1 X10*3/uL (4.8-10.8)
--- NOTE | 2022-06-11 11:23 | P.PNHO-ONC_ITS ---
Medical Summary - Medical Summary Date of Service: 06/11/22 Chief complaint: Follow-up for: Pancreatic carcinoma. Medical Summary: DIAGNOSIS: Pancreatic Cancer. CURRENT THERAPY: Completed Gemcitabine Abraxane., cycle 14, day 15. on 01/15. She then received: One cycle of Liposomal irinotecan with 5 FU leucovorin on 02/17. She did not tolerate it. She was subsequently started on gemcitabine Abraxane. She will receive treatment 18 tomorrow. Interval History Interval history: This is a pleasant 71 year-old lady, here for a follow-up visit. She tells me she feels, so so. She has not been feeling, too well. She complains of pain all over her body. She has anxiety and nausea in the morning. Sometimes, she complains of pain in her belly around the periumbilical area that radiates to the side and then to the back. It comes and goes. Pain medicines are helping. Her weight is down. Sometimes she gets loose bowels. Denies fever but has had chills. She denies dysphagia or odynophagia. No headache no dizziness. Denies any fever nor chills. She denies any chest pain or trouble breathing. She has chronic pain in the back. She is in good spirits. Rest of the review of systems is unremarkable. Previous history: She was seen in house. She presented to the hospital with complaints of abdominal pain. She complained of pain all over , on her abdomen, back, chest, legs. She reported that the abdominal pain had been going on for 2 months but worsened over the past 3 days. The pain is generalized abdominal pain, 8/10, intermittent, nonradiating, associated with nausea and vomiting. She also had occasional chills with no fever. She reported the pain to be just generalized discomfort. When asked about weight loss she reports about 1-2 lb of weight loss but not more. She also complained of years of shortness of breath with no change. She denied urinary symptoms and no lower extremity edema. Patient also complained of bloating, and low appetite. Her temp was 98.6?, pulse rate of 69, respiratory rate of 19, and oxygen saturation of 95% on room air. Labs: significant for PT of 27.7 INR of 2.3, sodium of 130, BUN of 11 with creatinine of 0.77, troponin 38 trended down to 37, BNP of 259, CT abdomen showed: New mass in the head neck and body of the pancreas measuring 4.5 x 6.5 cm worrisome for neoplasm. New bilateral pulmonary nodules. Upper abdominal varices. Large esophageal hernia, or intrathoracic stomach. Diverticulosis of the colon. Probable small uterine fibroid. Hospital course: The patient was evaluated for abdominal pain. I recommended, Biopsy of the pancreas. Discussed with IR who recommended holding both aspirin and warfarin for 3 days prior to procedure which was to be scheduled for next Wednesday. After discussing with the patient, she preferred to come back at the time of the biopsy. Her INR of 1.6 at the day of discharge. She was noted to have hyponatremia which seems to be chronic around 130-131. BNP was noted to be mildly elevated around 200 which was the baseline for her, looking back at her previous readings. Not in acute CHF exacerbation. les. Upper abdominal varices. Large esophageal hernia Past medical history: Diabetes, COPD, CVA, hypertension. Review of Systems - Constitutional Reports system reviewed and no additional complaints, except as documented - Eyes Reports system reviewed and no additional complaints, except as documented - ENT Reports system reviewed and no additional complaints, except as documented - Cardiovascular Reports system reviewed and no additional complaints, except as documented - Respiratory Reports no additional respiratory complaints - Gastrointestinal Reports system reviewed and no additional complaints, except as documented - Genitourinary Reports no additional female genitourinary complaints - Musculoskeletal Reports system reviewed and no additional complaints, except as documented - Integumentary/Breasts Skin/Breast: Reports no additional skin complaints - Neurologic Reports system reviewed and no additional complaints, except as documented, Reports headache(s), Reports weakness, Denies loss of vision - Psychiatric Reports system reviewed and no additional complaints, except as documented - Endocrine Reports no additional endocrine complaints - Hematologic/Lymphatic Reports system reviewed and no additional complaints, except as documented - Allergic/Immunologic Reports system reviewed and no additional complaints, except as documented [facility] Medical History: Medical History (Last Reviewed 05/08/22 @ 11:49 by Hieu Eddy MD) Anxiety and depression Biventricular ICD (implantable cardioverter-defibrillator) in place Cardiomyopathy Congestive heart failure COPD (chronic obstructive pulmonary disease) Coronary artery disease Current use of anticoagulant therapy CVA (cerebral vascular accident) Diverticulitis Esophageal hernia GERD (gastroesophageal reflux disease) History of renal calculi HTN (hypertension) Hypercholesterolemia Hyponatremia Osteopenia Type 2 diabetes mellitus with hyperglycemia Umbilical hernia Functional capacity: uses cane/walker Patient : No Family History: Family History (Last Reviewed 05/08/22 @ 11:49 by Hieu Eddy MD) Father Medical history unknown Mother Diabetes Hypertension Surgical History: Surgical History (Last Reviewed 05/08/22 @ 11:49 by Hieu Eddy MD) History of hemicolectomy History of incisional hernia repair History of pacemaker Social History: Social History (Last Reviewed 05/08/22 @ 11:49 by Hieu Eddy MD) Living Situation History: Household Members: Family Housing: House Are you a primary care transition coordinator to a significant other at home: No Do you presently have visiting nurse or other home services: No Alcohol History Details: Currently Displaying Signs/Symptoms of Alcohol Withdrawal: No Tobacco History: Patient Tobacco Use Status: Never used Tobacco e-Cigarette/Vaping Use: Never Used Second Hand Smoke Exposure: No Substance Use History: Use of substances other than those prescribed or required for medical reasons : No Domestic Abuse History: Have you been hit, kicked, punched, or otherwise hurt by someone within the past year? If so, by whom?: No Do you feel safe in your current relationship?: No Healthcare Practices: Yazidism Healthcare Practices: Adventism/ [facility] Nutrition Assessment: Recently lost weight without trying: Yes How much weight loss: 24-33 pounds Eating poorly because of decreased appetite: Yes Nutrition screen score: 6 Nutrition Risks: Acute nausea or vomiting Patient : No : No Poor oral hygiene: No Occupation Assessmet: service: No Current occupational status: retired Oncology Screenings - ECOG Performance Status ECOG Performance Status: 0 Home Medications and Allergies Home Medications Medication Instructions Recorded Confirmed Type budesonide-formoterol HFA 160 2 puff inhalation BID 11/19/20 06/11/22 History mcg-4.5 mcg/actuation aerosol inhaler metformin 500 mg tablet,extended 500 mg PO BID 02/21/21 06/11/22 History release 24 hr multivitamin with folic acid 400 1 tab PO BEDTIME 07/21/21 06/11/22 History mcg tablet (Daily-Eve (with folic acid)) amitriptyline 25 mg tablet 1 tab PO BEDTIME 02/17/22 06/11/22 History Allergies Allergy/AdvReac Type Severity Reaction Status Date / Time No Known Allergies Allergy Verified 05/29/22 11:50 Exam Vital signs: Vital Signs Temp 98 F 06/11/22 10:47 Pulse 67 06/11/22 10:47 Resp 18 06/11/22 10:47 BP 135/60 06/11/22 10:47 Pulse Ox 98 06/11/22 10:47 O2 Del Method 06/11/22 10:47 Intake & Output 06/10/22 06/11/22 06/11/22 18:59 06:59 18:59 Other: Weight 58.3 kg [place] Weight in Grams 20984 Weight 58.3 kg BMI result Body Mass Index 24.8 - Constitutional Present: no acute distress, mild distress - Routine HEENT Exam Head: Present: normal inspection Eye: Present: normal appearance ENT: Present: mucous membranes moist - Routine Neck Exam Present: full ROM - Routine Respiratory Exam Present: CTAB - Routine Cardiovascular Exam Cardiovascular: Present: RRR, S1, S2 - Routine Abdominal Exam Present: soft, tenderness. Absent: nontender - Routine Rectal Exam Patient deferred: digital exam - Routine Extremities Exam Present: nontender - Routine Back/Spine/Pelvis Exam Back/Spine: Present: full ROM - Routine Skin Exam Present: intact - Routine Neurological Exam Present: alert, oriented X3 - Routine Psychiatric Exam Present: normal affect Data - Labs CBC & Chem 7: 06/11/22 10:38 06/11/22 10:38 Assessment and Plan Patient Active problem list reviewed?: Yes (1) Pancreatic carcinoma Status: Acute Assessment and plan: This is a pleasant 70 year-old lady who presents with a couple of months history of abdominal pain that recently worsened. CT scan of the abdomen revealed: New mass in the head, neck and body the pancreas measuring 4.5 x 6.5 cm worrisome for neoplasm. New bilateral pulmonary nodules. Upper abdominal varices. Large esophageal hernia or intrathoracic stomach. Diverticulosis of the colon. Probable small uterine fibroid. Concern was for pancreatic cancer. Tumor marker Ca 19/9 is :4524. Biopsy was done on 11/12. Pathology revealed: Positive for atypical mucinous neoplasm. Moderately cellular specimen consisting of sheets of mucinous epithelium with cytologic atypia characterized by loss of clarity an irregularly shaped nuclei with Dr. chromatin in irregular nuclear membrane. Differential diagnosis includes an adenocarcinoma, mucinous cystic neoplasm and intraductal papillary mucinous neoplasm. I will proceed with a PET scan for further evaluation. This was done on 12/03, and revealed: Mild FDG activity in the pancreatic mass involving the head and adjacent pancreatic body corresponding to the recently biopsied malignancy. Multiple predominantly subcentimeter pulmonary nodules are present throughout the lungs likely represent metastases. Most of these are too small to be shelton acterized on the PET images but the largest shows FDG activity. No additional abnormality suspicious for metastatic or other malignant lesions are noted. Chronic left posterior parietal cerebral infarction Large hiatal hernia.. My plan was to proceed with systemic chemotherapy. She has been started on gemcitabine and Abraxane based regimen. After she had 3 cycles, he had CT scan. Repeat imaging from 04/04: CT abdomen: No appreciable change in the mass in the body of the pancreas from October [address] chest: Multiple bilateral pulmonary nodules not appreciably changed from previous PET /CT scan November 2020. Enlarged heart. Large esophageal hernia or intrathoracic stomach. I discussed the CT scan results with her, told her that even though there has not been much decrease in size of the tumor things do appear stable. Stable disease is considered a response to treatment. Hopefully things will decrease with the continued chemotherapy. She has been tolerating it well. She complains of intermittent diarrhea, after chemotherapy. CT scan of the abdomen from April 04: No appreciable change in the mass in the body of the pancreas from October [address] chest from April 04: Multiple bilateral pulmonary nodules not appreciably changed from previous PET/CT scan November 2020. Enlarged heart. Large esophageal hernia or intrathoracic stomach. She had a CT scan of the chest and abdomen on 08/22 which revealed: Previously described large 7 mm pulmonary nodules are smaller. No new pulmonary nodules are seen. A hypodense mass in the body of the pancreas and encasement surrounding the SMA is stable. The tail of the pancreas is not visualized, similar to previous stud y. No abnormal chest, abdomen and pelvic lymphadenopathy. Stable calcified left fibroid and right paramidline hernia containing fat and bowel loops. Moderate constipation. She is tolerating the treatment well. CA 19-9 was down to 1878 in August, 2054 in May, from 4855 in November. On 03/10: 6267. Most recently went up to 2550. l re-staged her with another CT scan. CT chest revealed:. Interval increase in size in some of the larger pulmonary nodules compared to August 2021 exam. I had shared the results with her and her son, at her last visit. Explained to them that it appears that the disease is getting refractory to the current regimen. I will need to switch her to a different protocol. Oxaliplatin with 5 FU and leucovorin, would be 1 option.. I went over the details of the treatment including the pros and the cons. Explained the procedure for the Port-A-Cath placement as well as the risks and benefits of it. She had a Port-A-Cath placed for that. She needed time to think and reflect. She recieved one cycle on 02/17. She did not tolerate it well. She had some nausea abdominal pain and diarrhea. She mentions some blood in the stools. That is going away however she is still feeling rather fatigued. She does not wish to continue that regimen. She and her son are concerned that there were few treatment delays with the Gemzar Abraxane and that could have accounted for the progression seen on the CT scan. They wanted to go back to that regimen since she was tolerating well. She was restarted on Gemzar and Abraxane based regimen. PLAN: The plan is to proceed with imaging to gauge her response. I will follow-up on the tumor marker as well. She will return tomorrow for her next treatment. Will make further plans based the results her CT scans. She will return in 2 weeks for a follow-up. Thanks, CC: Dr. Lancaster. - Time Spent With Patient Time Spent with Patient (in minutes): 30
[2022-06-11 11:34] LABS: Alanine Aminotransferase 31 U/L (0-31); Albumin Level 4.4 g/dL (3.5-5.0); Alkaline Phosphatase 66 U/L (39-117); Anion Gap 11 (12-20); Aspartate Amino Transferase 29 U/L (5-31); Bilirubin Total 0.4 mg/dL (0.0-1.0); Blood Urea Nitrogen 20 mg/dL (9-16); Calcium 9.3 mg/dL (8.4-10.2); Carbon Dioxide 28 mmol/L (22-29); Chloride 105 mmol/L (96-108); Creatinine Clr Calc Pharmacy 44.3; Estimated Glomerular Filt Rate 59; Glucose Random 108 mg/dL (60-115); Potassium 4.6 mmol/L (3.3-5.1); Sodium 139 mmol/L (135-145); Total Protein 7.2 g/dL (6.5-8.0)
--- NOTE | 2022-06-11 11:38 | HE.ONCSEC ---
PER DR DAI PATIENT DOES NOT NEED FOLLOW UP .
--- NOTE | 2022-06-11 14:15 | MHC.HEMONC ---
Pt here for lab draw and provider visit. Labs drawn by petroleum products sales representative peripherally-specimen to lab. Dr Cifuentes into see pt, Shirley [facility] shutdown planner present. CT scans printed and given to Betty to place in order art educator. Pt declined discharge packet. Pt to return tomorrow for chemotherapy.
[2022-06-12 09:46] VITALS: BMI 25.0
[2022-06-12 09:48] VITALS: BP 131/63; PULSE 73; RESP 18; TEMP 36.6; O2SAT 97
[2022-06-12] MEDS: Acetaminophen 325 MG TABLET 650 MG PO (10:38)
[2022-06-12] MEDS: Ondansetron ODT 8 MG TAB.RAPDIS TRANSLINGU (10:39)
[2022-06-12] MEDS: diphenhydrAMINE HCL 50 MG/ML VIAL 25 MG IVPUSH (10:39)
[2022-06-12] MEDS: dexAMETHasone 6 MG TABLET 12 MG PO (10:39)
[2022-06-12] MEDS: Famotidine/PF 20 MG/2 ML VIAL IVPUSH (10:39)
--- NOTE | 2022-06-12 11:36 | HO.HEMONCSCH ---
CT scan sent to [facility].
[2022-06-12] MEDS: PACLitaxeL protein-bound 200 MG in Container,Empty 0 ML 80 MG IV (12:42)
--- NOTE | 2022-06-12 14:58 | MHC.HEMONC ---
Pt here for C18D1 Abraxane/Gemzar. Labs drawn yesterday reviewed-okay to receive treatment today. Pt states she has intermittent nausea no vomitus-continues with fatigue. Port accessed with blood return noted. Pre medicated with tylenol, decadron, benadryl, zofran. Abraxane/ Gemzar given as directed-tolerated well. Port flushed with heparin and de accessed. Next appointment scheduled. Discharge packet given
--- NOTE | 2022-06-16 14:48 | HO.HEMONCPA ---
PA IS REQUIRED FOR FOR CT CHEST W/ CON (44921) & CT ABDOMEN PELVIS W/ CON . I FAXED OVER CLINICAL INFORMATION TO [facility] . AWAITING DECISION.
--- NOTE | 2022-06-16 14:49 | HO.HEMONCPA ---
PA IS REQUIRED FOR FOR CT CHEST W/ CON (21019) & CT ABDOMEN PELVIS W/ CON . [facility]. CASE#[id number] REP NAME :MAYCOL MontelongoCrystal 06/16/22
--- NOTE | 2022-06-17 10:21 | MHC.HEMONCMA ---
Bonnie from Prior Auth Dept at [facility] called from [phone] case # [id number], incomplete information sent. Called back and gave NPI# for Dr. Cifuentes with DX and address for Dept. They completed info and will send back to dept for auth.
--- NOTE | 2022-06-17 13:37 | HO.HEMONCPA ---
PA FOR CT CHEST W/ CON (40669) & CT ABDOMEN PELVIS W/ CON (19740) HAS BEEN APPROVED . DOS-06/17/22 TO 08/16/22 AUTH#[id number]
[2022-06-18 07:41] LABS: Carbohydrate Antigen 19-9 4537 U/mL (<34)
--- NOTE | 2022-06-18 16:39 | MHC.HEMONC ---
Received call from Nevin Cardoza pt's daughter in law. Questioning when CT is and why pt has to come in so early. Npo status for 3 hours prior to exam discussed with daughter in law. All questions answered
--- NOTE | 2022-06-23 10:09 | MHC.HEMONC ---
Pt here for CT scan and needs port accessed. Port accessed with blood return noted. To CT scan. Returned from scan. Port flushed with heparin and de accessed. Pt to return on for lab draw.
[2022-06-25 11:05] LABS: MANUAL DIFF FLAG NO
[2022-06-25 11:07] LABS: Basophils Percent Auto 0.2 % (0-2); Eosinophils Absolute Auto 0.2 X10*3/uL (0.0-0.4); Eosinophils Percent Auto 3.4 % (0-4); Hematocrit 34.8 % (37.0-47.0); Hemoglobin 11.2 g/dl (12.0-16.0); Imm Gran Abs Auto 0.02 X10*3/uL (0.00-0.03); Imm Gran Pct Auto 0.4 % (0.0-0.4); Lymphocytes Percent Auto 20.1 % (20-40); Mean Corpuscular HGB Conc 32.2 g/dl (31.0-35.0); Mean Corpuscular Hemoglobin 30.2 pg (27.0-33.0); Mean Corpuscular Volume 93.8 fL (80.0-98.0); Mean Platelet Volume 10.1 fL (9.4-12.3); Monocytes Absolute Auto 0.5 X10*3/uL (0.1-1.2); Monocytes Percent Auto 10.5 % (2-11); Neutrophils Absolute Auto 3.3 x10*3/uL (2.0-8.3); Neutrophils Percent Auto 65.4 % (45-73); Platelet Count 109 X10*3/uL (160-400); Red Blood Count 3.71 X10*6/uL (4.20-5.50); Red Cell Distribution Width 15.6 % (11.0-16.0)
--- NOTE | 2022-06-25 11:44 | MHC.HEMONC ---
Pt present for lab draw. Blood drawn by retail department supervisor-specimen to lab.
[2022-06-25 11:45] LABS: Alanine Aminotransferase 40 U/L (0-31); Albumin Level 4.3 g/dL (3.5-5.0); Alkaline Phosphatase 69 U/L (39-117); Anion Gap 13 (12-20); Aspartate Amino Transferase 37 U/L (5-31); Bilirubin Total 0.3 mg/dL (0.0-1.0); Blood Urea Nitrogen 21 mg/dL (9-16); Calcium 9.4 mg/dL (8.4-10.2); Carbon Dioxide 28 mmol/L (22-29); Chloride 105 mmol/L (96-108); Estimated Glomerular Filt Rate 57; Glucose Random 117 mg/dL (60-115); Potassium 5.3 mmol/L (3.3-5.1); Sodium 141 mmol/L (135-145)
[2022-06-26 10:03] VITALS: BP 142/94; PULSE 85; RESP 18; TEMP 36.4; O2SAT 97; BMI 25.0
[2022-06-26] MEDS: dexAMETHasone 6 MG TABLET 12 MG PO (10:25)
[2022-06-26] MEDS: Ondansetron ODT 8 MG TAB.RAPDIS TRANSLINGU (10:25)
[2022-06-26] MEDS: Acetaminophen 325 MG TABLET 650 MG PO (10:25)
[2022-06-26] MEDS: Famotidine/PF 20 MG/2 ML VIAL IVPUSH (10:26)
[2022-06-26] MEDS: diphenhydrAMINE HCL 50 MG/ML VIAL 25 MG IVPUSH (10:26)
[2022-06-26] MEDS: PACLitaxeL protein-bound 200 MG in Container,Empty 0 ML 80 MG IV (11:01)
--- NOTE | 2022-06-26 16:19 | MHC.HEMONC ---
Pt here for C18D15 ABRAXANE/GEMZAR. Port accessed with blood return noted. Labs drawn yesterday reviewed-okay to receive treatment today. Pt continues with fatigue, intermittent nausea and diarrhea. Pt states she has abdominal and back pain which she takes oxycodone and ms contin. Pre medicated with tylenol, decadron, benadryl, pepcid, zofran. Abraxane/Gemzar given as directed-tolerated well. Port flushed with heparin and de accessed. Next appointment scheduled for 2 weeks. Discharge packet given with next appointment scheduled
--- NOTE | 2022-07-03 16:11 | HO.HEMONCPA ---
CHINO PATEL (Code [id number]) ON 06/05/22. Paclitaxel FOR CONTINUATION OF THERAPY REQUESTED . AWAITING DECISION
--- NOTE | 2022-07-03 16:45 | HO.HEMONCPA ---
CHINO FOR ABRAXANE APPROVED. AUTH #[id number]. DOS 06/12/22 to 12/08/2022.
[2022-07-09 11:14] LABS: Basophils Percent Auto 0.3 % (0-2); Imm Gran Abs Auto 0.05 X10*3/uL (0.00-0.03); PLT CLUMP 1; Red Cell Distribution Width 15.5 % (11.0-16.0); SCAN SMEAR FLAG 1
[2022-07-09 11:16] LABS: Eosinophils Absolute Auto 0.1 X10*3/uL (0.0-0.4); Eosinophils Percent Auto 1.4 % (0-4); Hematocrit 37.3 % (37.0-47.0); Hemoglobin 12.2 g/dl (12.0-16.0); Imm Gran Pct Auto 0.7 % (0.0-0.4); Lymphocytes Absolute Auto 1.6 X10*3/uL (1.2-4.9); Lymphocytes Percent Auto 21.3 % (20-40); Mean Corpuscular HGB Conc 32.7 g/dl (31.0-35.0); Mean Corpuscular Hemoglobin 30.5 pg (27.0-33.0); Mean Corpuscular Volume 93.3 fL (80.0-98.0); Mean Platelet Volume 10.1 fL (9.4-12.3); Monocytes Absolute Auto 0.7 X10*3/uL (0.1-1.2); Monocytes Percent Auto 9.7 % (2-11); Neutrophils Absolute Auto 5.1 x10*3/uL (2.0-8.3); Neutrophils Percent Auto 66.6 % (45-73)
[2022-07-09 11:24] LABS: MANUAL DIFF FLAG NO; Platelet Count 137 X10*3/uL (160-400); White Blood Count 7.6 X10*3/uL (4.8-10.8)
[2022-07-09 11:42] LABS: Alanine Aminotransferase 53 U/L (0-31); Albumin Level 4.1 g/dL (3.5-5.0); Alkaline Phosphatase 56 U/L (39-117); Anion Gap 15 (12-20); Aspartate Amino Transferase 36 U/L (5-31); Bilirubin Total 0.2 mg/dL (0.0-1.0); Blood Urea Nitrogen 21 mg/dL (9-16); Calcium 9.2 mg/dL (8.4-10.2); Carbon Dioxide 26 mmol/L (22-29); Chloride 103 mmol/L (96-108); Creatinine Clr Calc Pharmacy 46.4; Estimated Glomerular Filt Rate > 60; Glucose Random 118 mg/dL (60-115); Potassium 4.5 mmol/L (3.3-5.1); Sodium 139 mmol/L (135-145); Total Protein 6.7 g/dL (6.5-8.0)
--- NOTE | 2022-07-09 13:40 | MHC.HEMONC ---
Pt here for lab draw. Blood drawn by exceptional student education aide-specimen to lab
[2022-07-10 10:14] VITALS: BP 158/73; PULSE 90; RESP 18; TEMP 36.1; O2SAT 99; BMI 25.6
[2022-07-10] MEDS: Ondansetron ODT 8 MG TAB.RAPDIS TRANSLINGU (10:44)
[2022-07-10] MEDS: Acetaminophen 325 MG TABLET 650 MG PO (10:44)
[2022-07-10] MEDS: dexAMETHasone 6 MG TABLET 12 MG PO (10:44)
[2022-07-10] MEDS: Heparin Sodium,Porcine Flush 500 UNIT/5 ML SYRINGE IVFLUSH (10:45)
[2022-07-10] MEDS: diphenhydrAMINE HCL 50 MG/ML VIAL 25 MG IVPUSH (10:46)
[2022-07-10] MEDS: Famotidine/PF 20 MG/2 ML VIAL IVPUSH (10:46)
--- NOTE | 2022-07-10 11:23 | PM.HEMONCPN ---
Medical Summary - Medical Summary Date of Service: 07/10/22 Chief complaint: Follow-up for: Pancreatic cancer. Medical Summary: DIAGNOSIS: Pancreatic Cancer. CURRENT THERAPY: Completed Gemcitabine Abraxane., cycle 14, day 15. on 01/15. She then received: One cycle of Liposomal irinotecan with 5 FU leucovorin on 02/17. She did not tolerate it. She was subsequently started on gemcitabine Abraxane. She will receive treatment 18 tomorrow. Interval History Interval history: This is a pleasant 71 year-old lady, here for a follow-up visit. She tells me she feels quite well. Her energy level goes up and down. Sometimes she loses a sense of taste and smell. She had COVID about a year ago. Sometimes she nausea in the morning. Occassionally, she complains of pain in her belly, around the periumbilical area. This radiates to the side and then to the back. It comes and goes. Pain medicines are helping. Sometimes she gets loose bowels. Her apetite is better with the Megace, her weight is up. Denies fever but has had chills. She denies dysphagia or odynophagia. No headache no dizziness. Denies any fever nor chills. She denies any chest pain or trouble breathing. She has chronic pain in the back. She is in good spirits. Rest of the review of systems is unremarkable. Previous history: She was seen in house. She presented to the hospital with complaints of abdominal pain. She complained of pain all over , on her abdomen, back, chest, legs. She reported that the abdominal pain had been going on for 2 months but worsened over the past 3 days. The pain is generalized abdominal pain, 8/10, intermittent, nonradiating, associated with nausea and vomiting. She also had occasional chills with no fever. She reported the pain to be just generalized discomfort. When asked about weight loss she reports about 1-2 lb of weight loss but not more. She also complained of years of shortness of breath with no change. She denied urinary symptoms and no lower extremity edema. Patient also complained of bloating, and low appetite. Her temp was 98.6?, pulse rate of 69, respiratory rate of 19, and oxygen saturation of 95% on room air. Labs: significant for PT of 27.7 INR of 2.3, sodium of 130, BUN of 11 with creatinine of 0.77, troponin 38 trended down to 37, BNP of 259, CT abdomen showed: New mass in the head neck and body of the pancreas measuring 4.5 x 6.5 cm worrisome for neoplasm. New bilateral pulmonary nodules. Upper abdominal varices. Large esophageal hernia, or intrathoracic stomach. Diverticulosis of the colon. Probable small uterine fibroid. Hospital course: The patient was evaluated for abdominal pain. I recommended, Biopsy of the pancreas. Discussed with IR who recommended holding both aspirin and warfarin for 3 days prior to procedure which was to be scheduled for next Wednesday. After discussing with the patient, she preferred to come back at the time of the biopsy. Her INR of 1.6 at the day of discharge. She was noted to have hyponatremia which seems to be chronic around 130-131. BNP was noted to be mildly elevated around 200 which was the baseline for her, looking back at her previous readings. Not in acute CHF exacerbation. les. Upper abdominal varices. Large esophageal hernia Past medical history: Diabetes, COPD, CVA, hypertension. Review of Systems - Constitutional Reports no additional constitutional complaints, Reports lack of energy, Reports malaise, Reports weight gain - Eyes Reports no additional eye complaints - ENT Reports no additional ear, nose, mouth, and throat complaints - Cardiovascular Reports no additional cardiovascular complaints - Respiratory Reports no additional respiratory complaints - Gastrointestinal Reports no additional gastrointestinal complaints, Reports abdominal pain, Reports belching - Genitourinary Reports no additional female genitourinary complaints - Musculoskeletal Reports no additional musculoskeletal complaints - Integumentary/Breasts Skin/Breast: Reports no additional skin complaints - Neurologic Reports no additional neurologic complaints, Reports headache(s), Denies loss of vision, Reports weakness - Psychiatric Reports no additional psychiatric complaints - Endocrine Reports no additional endocrine complaints - Hematologic/Lymphatic Reports no additional hematologic/lymphatic complaints - Allergic/Immunologic Reports no additional allergic/immunologic complaints [facility] Medical History: Medical History (Last Updated 06/25/22 @ 09:59 by Malika Mayer MD) Anxiety and depression Biventricular ICD (implantable cardioverter-defibrillator) in place Cardiomyopathy Congestive heart failure COPD (chronic obstructive pulmonary disease) Coronary artery disease Current use of anticoagulant therapy CVA (cerebral vascular accident) Diverticulitis Esophageal hernia GERD (gastroesophageal reflux disease) History of renal calculi HTN (hypertension) Hypercholesterolemia Hyponatremia Osteopenia Type 2 diabetes mellitus with hyperglycemia Umbilical hernia Functional capacity: uses cane/walker Patient : No Family History: Family History (Last Reviewed 06/25/22 @ 09:43 by Lorena Stringer) Father Medical history unknown Mother Diabetes Hypertension Surgical History: Surgical History (Last Reviewed 06/25/22 @ 09:43 by Lorena Stringer) History of hemicolectomy History of incisional hernia repair History of pacemaker Social History: Social History (Last Reviewed 05/08/22 @ 11:49 by Hieu Eddy MD) Living Situation History: Household Members: Family Housing: House Are you a primary child care centre manager to a significant other at home: No Do you presently have visiting nurse or other home services: No Alcohol History Details: Currently Displaying Signs/Symptoms of Alcohol Withdrawal: No Tobacco History: Patient Tobacco Use Status: Never used Tobacco e-Cigarette/Vaping Use: Never Used Second Hand Smoke Exposure: No Substance Use History: Use of substances other than those prescribed or required for medical reasons: No Domestic Abuse History: Have you been hit, kicked, punched, or otherwise hurt by someone within the past year? If so, by whom?: No Do you feel safe in your current relationship?: No Healthcare Practices: [facility] Practices: Islam/ [employer] Nutrition Assessment: Recently lost weight without trying: Yes How much weight loss: 24-33 pounds Eating poorly because of decreased appetite: Yes Nutrition screen score: 6 Nutrition Risks: Acute nausea or vomiting Patient : No : No Poor oral hygiene: No Occupation Assessmet: service: No Current occupational status: retired Oncology Screenings - ECOG Performance Status ECOG Performance Status: 1 Home Medications and Allergies Current Medications: Current Medications Acetaminophen (Acetaminophen 325 Mg Tablet) 650 mg PO ONCE ERWIN Stop: 07/10/22 23:59 Last Admin: 07/10/22 10:44 Dose: 650 mg Dexamethasone (Dexamethasone 6 Mg Tablet) 12 mg PO ONCE ERWIN Stop: 07/10/22 23:59 Last Admin: 07/10/22 10:44 Dose: 12 mg Diphenhydramine HCl (Diphenhydramine Hcl 50 Mg/Ml Vial) 25 mg IVPUSH ONCE ERWIN Stop: 07/10/22 23:59 Last Admin: 07/10/22 10:46 Dose: 25 mg Famotidine (Famotidine/Pf 20 Mg/2 Ml Vial) 20 mg IVPUSH ONCE ERWIN Stop: 07/10/22 23:59 Last Admin: 07/10/22 10:46 Dose: 20 mg Heparin Sodium (Porcine) (Heparin Sodium,Porcine Flush 500 Unit/5 Ml Syringe) 500 unit IVFLUSH ONCE ERWIN Stop: 07/10/22 23:59 Last Admin: 07/10/22 10:45 Dose: 500 unit Paclitaxel/Albumin ( Nanoparticle) 200 mg/ IV Miscellaneous Supplies 40 mls @ 80 mls/hr IV ONCE ERWIN Stop: 07/10/22 23:59 Gemcitabine HCl 1,000 mg/Gemcitabine HCl 600 mg/ Sodium Chloride 292.105 mls @ 584.21 mls/hr IV ONCE ERWIN Stop: 07/10/22 23:59 Ondansetron HCl (Ondansetron Odt 8 Mg Tab.Rapdis) 8 mg TRANSLINGU ONCE ERWIN Stop: 07/10/22 23:59 Last Admin: 07/10/22 10:44 Dose: 8 mg Home Medications Medication Instructions Recorded Confirmed Type multivitamin with folic acid 400 1 tab PO BEDTIME 07/21/21 07/10/22 History mcg tablet (Daily-Eve (with folic acid)) amitriptyline 25 mg tablet 1 tab PO BEDTIME 02/17/22 07/10/22 History Allergies Allergy/AdvReac Type Severity Reaction Status Date / Time No Known Allergies Allergy Verified 06/25/22 09:42 Exam Vital signs: Vital Signs Temp 97 F 07/10/22 10:14 Pulse 90 07/10/22 10:14 Resp 18 07/10/22 10:14 BP 158/73 H 07/10/22 10:14 Pulse Ox 99 07/10/22 10:14 O2 Del Method 07/10/22 10:14 Intake & Output 07/09/22 07/10/22 07/10/22 18:59 06:59 18:59 Other: Weight 60.1 kg Weight in Grams 47149 Weight 60.1 kg BMI result Body Mass Index 25.6 - Constitutional Present: no acute distress, mild distress - Routine HEENT Exam Head: Present: normal inspection Eye: Present: normal appearance ENT: Present: mucous membranes moist - Routine Neck Exam Present: full ROM - Routine Respiratory Exam Present: CTAB - Routine Cardiovascular Exam Cardiovascular: Present: RRR, S1, S2 - Routine Abdominal Exam Present: soft, tenderness. Absent: nontender - Routine Rectal Exam Patient deferred: digital exam - Routine Extremities Exam Present: nontender - Routine Back/Spine/Pelvis Exam Back/Spine: Present: full ROM - Routine Skin Exam Present: intact - Routine Neurological Exam Present: alert, oriented X3 - Routine Psychiatric Exam Present: normal affect Data - Labs CBC & Chem 7: 07/09/22 10:48 07/09/22 10:48 Assessment and Plan Patient Active problem list reviewed?: Yes (1) Pancreatic carcinoma Status: Acute Assessment and plan: This is a pleasant 70 year-old lady who presents with a couple of months history of abdominal pain that recently worsened. CT scan of the abdomen revealed: New mass in the head, neck and body the pancreas measuring 4.5 x 6.5 cm worrisome for neoplasm. New bilateral pulmonary nodules. Upper abdominal varices. Large esophageal hernia or intrathoracic stomach. Diverticulosis of the colon. Probable small uterine fibroid. Concern was for pancreatic cancer. Tumor marker Ca 19/9 is :4524. Biopsy was done on 11/12. Pathology revealed: Positive for atypical mucinous neoplasm. Moderately cellular specimen consisting of sheets of mucinous epithelium with cytologic atypia characterized by loss of clarity an irregularly shaped nuclei with Dr. chromatin in irregular nuclear membrane. Differential diagnosis includes an adenocarcinoma, mucinous cystic neoplasm and intraductal papillary mucinous neoplasm. I will proceed with a PET scan for further evaluation. This was done on 12/03, and revealed: Mild FDG activity in the pancreatic mass involving the head and adjacent pancreatic body corresponding to the recently biopsied malignancy. Multiple predominantly subcentimeter pulmonary nodules are present throughout the lungs likely represent metastases. Most of these are too small to be characterized on the PET images but the largest shows FDG activity. No additional abnormality suspicious for metastatic or other malignant lesions are noted. Chronic left posterior parietal cerebral infarction Large hiatal hernia.. My plan was to proceed with systemic chemotherapy. She has been started on gemcitabine and Abraxane based regimen. After she had 3 cycles, he had CT scan. Repeat imaging from 04/04: CT abdomen: No appreciable change in the mass in the body of the pancreas from October [address] chest: Multiple bilateral pulmonary nodules not appreciably changed from previous PET/CT scan November 2020. Enlarged heart. Large esophageal hernia or intrathoracic stomach. I discussed the CT scan results with her, told her that even though there has not been much decrease in size of the tumor things do appear stable. Stable disease is considered a response to treatment. Hopefully things will decrease with the continued chemotherapy. She has been tolerating it well. She complains of intermittent diarrhea, after chemotherapy. CT scan of the abdomen from April 04: No appreciable change in the mass in the body of the pancreas from October [address] chest from April 04: Multiple bilateral pulmonary nodules not appreciably changed from previous PET/CT scan November 2020. Enlarged heart. Large esophageal hernia or intrathoracic stomach. She had a CT scan of the chest and abdomen on 08/22 which revealed: Previously described large 7 mm pulmonary nodules are smaller. No new pulmonary nodules are seen. A hypodense mass in the body of the pancreas and encasement surrounding the SMA is stable. The tail of the pancreas is not visualized, similar to previous study. No abnormal chest, abdomen and pelvic lymphadenopathy. Stable calcified left fibroid and right paramidline hernia containing fat and bowel loops. Moderate constipation. She is tolerating the treatment well. CA 19-9 was down to 1878 in August, 5 in May, from 4855 in November. On 03/10: 6267. Most recently went up to 2550. l re-staged her with another CT scan. CT chest revealed:. Interval increase in size in some of the larger pulmonary nodules compared to August 2021 exam. I had shared the results with her and her son, at her last visit. Explained to them that it appears that the disease is getting refractory to the current regimen. I will need to switch her to a different protocol. Oxaliplatin with 5 FU and leucovorin, would be 1 option.. I went over the details of the treatment including the pros and the cons. Explained the procedure for the Port-A-Cath placement as well as the risks and benefits of it. She had a Port-A-Cath placed for that. She needed time to think and reflect. She recieved one cycle on 02/17. She did not tolerate it well. She had some nausea abdominal pain and diarrhea. She mentions some blood in the stools. That is going away however she is still feeling rather fatigued. She does not wish to continue that regimen. She and her son are concerned that there were few treatment delays with the Gemzar Abraxane and that could have accounted for the progression seen on the CT scan. They wanted to go back to that regimen since she was tolerating well. She was restarted on Gemzar and Abraxane based regimen. She has been tolerating it well. CA 19-9 from 06/11:4537. CT scan of the abdomen and pelvis from 06/24: Stable pancreatic mass. Stable adenopathy. CT of the chest from 06/24: Slight interval increase in size in bilateral pulmonary nodules. I shared the results with her and her son. Her disease appears to be holding quite stable at this point. PLAN: The plan is to continue her on the current regimen for another couple of cycles. Then re-stage her with imaging. I will follow-up on the tumor marker as well. She will return in 4 weeks for a follow-up. Thanks, CC: Dr. Lancaster. - Time Spent With Patient Time Spent with Patient (in minutes): 30
[2022-07-10] MEDS: PACLitaxeL protein-bound 200 MG in Container,Empty 0 ML 80 MG IV (11:47)
--- NOTE | 2022-07-10 13:21 | MHC.HEMONC ---
Pt here for C19D1 Abraxane/Gemcitabine. Port accessed with blood return noted. Labs drawn yesterday reviewed. Dr Cifuentes into see pt. Son and grandson with pt.
--- NOTE | 2022-07-10 13:37 | MHC.HEMONC ---
Pt here for C19D1 Abraxane/Gemcitabine. Port accessed with blood return noted. Labs drawn [id number] to receive treatment today. Pt states she has slight intermittent nausea, constipation and diarrhea at times, states she has no taste and no smell. Dr Cifuentes notified and into see pt. Pt's son and grandson present. Pre medicated with tylenol, zofran, decadron, pepcid, benadryl. Abraxane/Gemcitabine given as ordered-tolerated well. Port flushed with heparin and de accessed. Discharge packet given with next appointment scheduled in 2 weeks
--- NOTE | 2022-07-17 12:40 | HO.HEMONCPA ---
NO PA REQUIRED FOR GEMCITABINE(GEMZAR) J9201 PER [employer] WEBSITE ON 07/17/22 at 12;43PM. Code Type Prior authorization [id number] HCP No Legend No No prior authorization required Yes Prior authorization required Not covered This procedure code is not covered by [employer] Requirements vary Please contact us at and select prompt 1.
[2022-07-23 10:50] LABS: MANUAL DIFF FLAG NO
[2022-07-23 10:53] LABS: Basophils Percent Auto 0.2 % (0-2); Eosinophils Absolute Auto 0.1 X10*3/uL (0.0-0.4); Eosinophils Percent Auto 1.1 % (0-4); Hematocrit 37.7 % (37.0-47.0); Hemoglobin 12.4 g/dl (12.0-16.0); Imm Gran Pct Auto 3.7 % (0.0-0.4); Lymphocytes Absolute Auto 1.7 X10*3/uL (1.2-4.9); Lymphocytes Percent Auto 15.6 % (20-40); Mean Corpuscular HGB Conc 32.9 g/dl (31.0-35.0); Mean Corpuscular Hemoglobin 30.8 pg (27.0-33.0); Mean Corpuscular Volume 93.8 fL (80.0-98.0); Mean Platelet Volume 9.5 fL (9.4-12.3); Monocytes Absolute Auto 0.8 X10*3/uL (0.1-1.2); Monocytes Percent Auto 7.4 % (2-11); NRBC Pct Auto 0.3 /100WBC (0.0-0.2); Neutrophils Absolute Auto 7.7 x10*3/uL (2.0-8.3); Platelet Count 135 X10*3/uL (160-400); Red Blood Count 4.02 X10*6/uL (4.20-5.50); Red Cell Distribution Width 15.2 % (11.0-16.0); White Blood Count 10.7 X10*3/uL (4.8-10.8)
[2022-07-23 11:14] LABS: Alanine Aminotransferase 34 U/L (0-31); Alkaline Phosphatase 57 U/L (39-117); Anion Gap 14 (12-20); Aspartate Amino Transferase 28 U/L (5-31); Bilirubin Total 0.2 mg/dL (0.0-1.0); Blood Urea Nitrogen 21 mg/dL (9-16); Calcium 9.2 mg/dL (8.4-10.2); Carbon Dioxide 26 mmol/L (22-29); Chloride 104 mmol/L (96-108); Creatinine Clr Calc Pharmacy 46.9; Estimated Glomerular Filt Rate > 60; Glucose Random 191 mg/dL (60-115); Potassium 3.6 mmol/L (3.3-5.1); Sodium 140 mmol/L (135-145); Total Protein 6.6 g/dL (6.5-8.0)
--- NOTE | 2022-07-23 15:31 | MHC.HEMONC ---
Pt here for lab draw. Blood drawn by it application support analyst-specimen to lab.
[2022-07-24 10:18] VITALS: BP 158/75; PULSE 80; RESP 19; TEMP 35.9; O2SAT 98; BMI 24.7
[2022-07-24] MEDS: Famotidine/PF 20 MG/2 ML VIAL IVPUSH (10:35)
[2022-07-24] MEDS: diphenhydrAMINE HCL 50 MG/ML VIAL 25 MG IVPUSH (10:39)
[2022-07-24] MEDS: dexAMETHasone 6 MG TABLET 12 MG PO (10:39)
[2022-07-24] MEDS: Acetaminophen 325 MG TABLET 650 MG PO (10:39)
[2022-07-24] MEDS: Ondansetron ODT 8 MG TAB.RAPDIS TRANSLINGU (10:40)
[2022-07-24] MEDS: Heparin Sodium,Porcine Flush 500 UNIT/5 ML SYRINGE IVFLUSH (10:40)
[2022-07-24] MEDS: PACLitaxeL protein-bound 200 MG in Container,Empty 0 ML 80 MG IV (12:28)
--- NOTE | 2022-07-24 15:12 | MHC.HEMONC ---
Pt here for [id number] Abraxane/Gemzar. Labs drawn yesterday reviewed. Pt states she was hospitalized last week for resp distress-states she feels better today. States she continues with intermittent nausea, diarrhea, constipation and fatigue. Okay to receive treatment today. Port accessed with blood return noted. Pre medicated with tylenol, decadron, benadryl, pepcid, zofran. Abraxane/Gemzar given as ordered-tolerated well. Port flushed with heparin and de accessed. Next appointment scheduled. Discharge packet given.
[2022-08-06 10:32] LABS: MANUAL DIFF FLAG NO
[2022-08-06 10:38] LABS: Basophils Percent Auto 0.3 % (0-2); Eosinophils Absolute Auto 0.1 X10*3/uL (0.0-0.4); Hematocrit 35.1 % (37.0-47.0); Hemoglobin 11.2 g/dl (12.0-16.0); Imm Gran Abs Auto 0.02 X10*3/uL (0.00-0.03); Imm Gran Pct Auto 0.5 % (0.0-0.4); Mean Corpuscular HGB Conc 31.9 g/dl (31.0-35.0); Mean Corpuscular Volume 94.1 fL (80.0-98.0); Mean Platelet Volume 10.8 fL (9.4-12.3); Monocytes Absolute Auto 0.4 X10*3/uL (0.1-1.2); Monocytes Percent Auto 9.3 % (2-11); Neutrophils Absolute Auto 2.4 x10*3/uL (2.0-8.3); Neutrophils Percent Auto 60.9 % (45-73); Platelet Count 120 X10*3/uL (160-400); Red Blood Count 3.73 X10*6/uL (4.20-5.50); Red Cell Distribution Width 15.1 % (11.0-16.0)
[2022-08-06 10:56] LABS: Alanine Aminotransferase 26 U/L (0-31); Albumin Level 4.1 g/dL (3.5-5.0); Alkaline Phosphatase 64 U/L (39-117); Anion Gap 14 (12-20); Aspartate Amino Transferase 26 U/L (5-31); Bilirubin Total 0.2 mg/dL (0.0-1.0); Blood Urea Nitrogen 16 mg/dL (9-16); Calcium 9.1 mg/dL (8.4-10.2); Carbon Dioxide 25 mmol/L (22-29); Chloride 106 mmol/L (96-108); Creatinine Clr Calc Pharmacy 49.6; Estimated Glomerular Filt Rate > 60; Glucose Random 152 mg/dL (60-115); Potassium 4.7 mmol/L (3.3-5.1); Sodium 140 mmol/L (135-145); Total Protein 6.7 g/dL (6.5-8.0)
--- NOTE | 2022-08-06 11:19 | MHC.HEMONC ---
Pt here for pre chemo lab draw. Blood drawn peripherally by economic developer-specimen to lab.
[2022-08-07 10:05] VITALS: BP 147/67; PULSE 82; RESP 16; TEMP 36.7; O2SAT 98; BMI 25.2
[2022-08-07] MEDS: Acetaminophen 325 MG TABLET 650 MG PO (10:28)
[2022-08-07] MEDS: dexAMETHasone sod phosphate/NS 12 MG/50 ML PIGGYBACK 200 MG IV (10:30)
[2022-08-07] MEDS: Famotidine/PF 20 MG/2 ML VIAL IVPUSH (10:31)
[2022-08-07] MEDS: PACLitaxeL protein-bound 200 MG in Container,Empty 0 ML 80 MG IV (12:08)
--- NOTE | 2022-08-07 13:03 | MHC.HEMONC ---
Pt here [id number] ABRAXANE/GEMZAR. Port accessed with blood return noted. Labs drawn yesterday reviewed. Pt states she continues with fatigue, occasional nausea and vomiting. Pt states she has had a few episodes of chills Dr Cifuentes notified. Tamar to receive treatment today. Pre medicated with zofran, pepcid, decadron, tylenol. Abraxane/Gemzar given as ordered tolerated well. Port flushed with heparin and de accessed. Next appointment scheduled. Discharge packet given. Son (Eliot) with pt.
--- NOTE | 2022-08-20 11:16 | MHC.HEMONC ---
Pt here for pre chemo lab draw. Blood drawn by control panel operator-specimen to lab.
[2022-08-20 11:19] LABS: MANUAL DIFF FLAG NO
[2022-08-20 11:24] LABS: Basophils Percent Auto 0.2 % (0-2); Eosinophils Absolute Auto 0.1 X10*3/uL (0.0-0.4); Eosinophils Percent Auto 1.5 % (0-4); Hematocrit 35.4 % (37.0-47.0); Hemoglobin 11.2 g/dl (12.0-16.0); Imm Gran Abs Auto 0.03 X10*3/uL (0.00-0.03); Imm Gran Pct Auto 0.6 % (0.0-0.4); Lymphocytes Absolute Auto 0.7 X10*3/uL (1.2-4.9); Lymphocytes Percent Auto 15.2 % (20-40); Mean Corpuscular HGB Conc 31.6 g/dl (31.0-35.0); Mean Corpuscular Hemoglobin 30.3 pg (27.0-33.0); Mean Corpuscular Volume 95.7 fL (80.0-98.0); Mean Platelet Volume 10.6 fL (9.4-12.3); Monocytes Absolute Auto 0.6 X10*3/uL (0.1-1.2); Monocytes Percent Auto 12.1 % (2-11); Neutrophils Absolute Auto 3.4 x10*3/uL (2.0-8.3); Neutrophils Percent Auto 70.4 % (45-73); Platelet Count 133 X10*3/uL (160-400); Red Cell Distribution Width 14.6 % (11.0-16.0); White Blood Count 4.8 X10*3/uL (4.8-10.8)
[2022-08-20 11:53] LABS: Alanine Aminotransferase 29 U/L (0-31); Albumin Level 4.1 g/dL (3.5-5.0); Alkaline Phosphatase 66 U/L (39-117); Anion Gap 17 (12-20); Aspartate Amino Transferase 23 U/L (5-31); Bilirubin Total < 0.2 mg/dL (0.0-1.0); Blood Urea Nitrogen 20 mg/dL (9-16); Calcium 9.2 mg/dL (8.4-10.2); Carbon Dioxide 25 mmol/L (22-29); Chloride 103 mmol/L (96-108); Creatinine Clr Calc Pharmacy 40.6; Estimated Glomerular Filt Rate 53; Glucose Random 190 mg/dL (60-115); Potassium 4.5 mmol/L (3.3-5.1); Sodium 140 mmol/L (135-145); Total Protein 6.7 g/dL (6.5-8.0)
[2022-08-21 10:07] VITALS: BP 140/65; PULSE 76; RESP 18; TEMP 36.3; O2SAT 97; BMI 25.3
[2022-08-21] MEDS: dexAMETHasone sod phosphate/NS 12 MG/50 ML PIGGYBACK 200 MG IV (10:24)
[2022-08-21] MEDS: Famotidine/PF 20 MG/2 ML VIAL IVPUSH (11:04)
[2022-08-21] MEDS: Acetaminophen 325 MG TABLET 650 MG PO (11:04)
--- NOTE | 2022-08-21 11:34 | P.PNHO-ONC_ITS ---
Medical Summary - Medical Summary Date of Service: 08/21/22 Chief complaint: Follow-up for: Pancreatic carcinoma. Medical Summary: DIAGNOSIS: Pancreatic Cancer. CURRENT THERAPY: Completed Gemcitabine Abraxane., cycle 14, day 15. on 01/15. She then received: One cycle of Liposomal irinotecan with 5 FU leucovorin on 02/17. She did not tolerate it. She was subsequently started on gemcitabine Abraxane. She will receive treatment 20 today. Interval History Interval history: This is a pleasant 71 year-old lady, here for a follow-up visit. She tells me she feels quite well. Her energy level fluctuates. Lately she has noticed an occasional headache. Was given a medication which helps. Denies fever but has had chills. She denies dysphagia or odynophagia. No dizziness. Denies any fever nor chills. She denies any chest pain or trouble breathing. Sometimes she nausea in the morning. Occasionally, she complains of pain in her belly, around the periumbilical area. This radiates to the side and then to the back. It comes and goes. Pain medicines are helping. Sometimes she gets loose bowels. Her apetite is better with the Megace, her weight is up. She has chronic pain in the back. She is in good spirits. Rest of the review of systems is unremarkable. Previous history: She was seen in house. She presented to the hospital with complaints of abdominal pain. She complained of pain all over , on her abdomen, back, chest, legs. She reported that the abdominal pain had been going on for 2 months but worsened over the past 3 days. The pain is generalized abdominal pain, 8/10, intermittent, nonradiating, associated with nausea and vomiting. She also had occasional chills with no fever. She reported the pain to be just generalized discomfort. When asked about weight loss she reports about 1-2 lb of weight loss but not more. She also complained of years of shortness of breath with no change. She denied urinary symptoms and no lower extremity edema. Patient also complained of bloating, and low appetite. Her temp was 98.6?, pulse rate of 69, respiratory rate of 19, and oxygen saturation of 95% on room air. Labs: significant for PT of 27.7 INR of 2.3, sodium of 130, BUN of 11 with creatinine of 0.77, troponin 38 trended down to 37, BNP of 259, CT abdomen showed: New mass in the head neck and body of the pancreas measuring 4.5 x 6.5 cm worrisome for neoplasm. New bilateral pulmonary nodules. Upper abdominal varices. Large esophageal hernia, or intrathoracic stomach. Diverticulosis of the colon. Probable small uterine fibroid. Hospital course: The patient was evaluated for abdominal pain. I recommended, Biopsy of the pancreas. Discussed with IR who recommended holding both aspirin and warfarin for 3 days prior to procedure which was to be scheduled for next Wednesday. After discussing with the patient, she preferred to come back at the time of the biopsy. Her INR of 1.6 at the day of discharge. She was noted to have hyponatremia which seems to be chronic around 130-131. BNP was noted to be mildly elevated around 200 which was the baseline for her, looking back at her previous readings. Not in acute CHF exacerbation. les. Upper abdominal varices. Large esophageal hernia Sometimes she loses a sense of taste and smell. She had COVID about a year ago. Past medical history: Diabetes, COPD, CVA, hypertension. Review of Systems - Constitutional Reports no additional constitutional complaints, Reports lack of energy, Reports weight gain, Denies weight loss - Eyes Reports no additional eye complaints - ENT Reports no additional ear, nose, mouth, and throat complaints - Cardiovascular Reports no additional cardiovascular complaints - Respiratory Reports no additional respiratory complaints - Gastrointestinal Reports no additional gastrointestinal complaints - Genitourinary Reports no additional female genitourinary complaints - Musculoskeletal Reports no additional musculoskeletal complaints - Integumentary/Breasts Skin/Breast: Reports no additional skin complaints - Neurologic Reports no additional neurologic complaints, Reports headache(s), Denies loss of vision, Reports weakness - Psychiatric Reports no additional psychiatric complaints - Endocrine Reports no additional endocrine complaints - Hematologic/Lymphatic Reports no additional hematologic/lymphatic complaints - Allergic/Immunologic Reports no additional allergic/immunologic complaints [facility] Medical History: Medical History (Last Reviewed 07/15/22 @ 10:37 by Zahira Goncalves DO) Anxiety and depression Biventricular ICD (implantable cardioverter-defibrillator) in place Cardiomyopathy Congestive heart failure COPD (chronic obstructive pulmonary disease) Coronary artery disease Current use of anticoagulant therapy CVA (cerebral vascular accident) Diverticulitis Esophageal hernia GERD (gastroesophageal reflux disease) History of renal calculi HTN (hypertension) Hypercholesterolemia Hyponatremia Osteopenia Type 2 diabetes mellitus with hyperglycemia Umbilical hernia Functional capacity: uses cane/walker Patient : No Family History: Family History (Last Reviewed 06/25/22 @ 09:43 by Lorena Stringer) Father Medical history unknown Mother Diabetes Hypertension Surgical History: Surgical History (Last Reviewed 07/15/22 @ 10:37 by Zahira Goncalves DO) History of hemicolectomy History of incisional hernia repair History of pacemaker Social History: Social History (Last Reviewed 07/15/22 @ 10:37 by Zahira Goncalves DO) Living Situation History: Household Members: Family Housing: House Are you a primary care management associate to a significant other at home: No Do you presently have visiting nurse or other home services: No Alcohol History Details: Currently Displaying Signs/Symptoms of Alcohol Withdrawal: No Tobacco History: Patient Tobacco Use Status: Never used Tobacco e-Cigarette/Vaping Use: Never Used Second Hand Smoke Exposure: No Substance Use History: Use of substances other than those prescribed or required for medical reasons : No Domestic Abuse History: Have you been hit, kicked, punched, or otherwise hurt by someone within the past year? If so, by whom?: No Do you feel safe in your current relationship?: No Healthcare Practices: Mu-Ism Healthcare Practices: Roman Catholic/ Moravian Advance Directives: Advance Directives Date on File: 02/17/22 Nutrition Assessment: Recently lost weight without trying: Yes How much weight loss: 24-33 pounds Eating poorly because of decreased appetite: Yes Nutrition screen score: 6 Nutrition Risks: Acute nausea or vomiting Patient : No : No Poor oral hygiene: No Occupation Assessmet: service: No Current occupational status: retired Oncology Screenings - ECOG Performance Status ECOG Performance Status: 1 Home Medications and Allergies Current Medications: Current Medications Acetaminophen (Acetaminophen 325 Mg Tablet) 650 mg PO ONCE ONE Stop: 08/21/22 23:59 Last Admin: 08/21/22 11:04 Dose: 650 mg Famotidine (Famotidine/Pf 20 Mg/2 Ml Vial) 20 mg IVPUSH ONCE ONE Stop: 08/21/22 23:59 Last Admin: 08/21/22 11:04 Dose: 20 mg Dexamethasone Sodium Phosphate (Decadron) 12 mg in 50 mls @ 200 mls/hr IV ONCE ERWIN Stop: 08/21/22 23:59 Last Infusion: 08/21/22 10:39 Dose: Infused Paclitaxel/Albumin ( Nanoparticle) 200 mg/ IV Miscellaneous Supplies 40 mls @ 80 mls/hr IV ONCE ERWIN Stop: 08/21/22 23:59 Gemcitabine HCl 1,570 mg/ (Sodium Chloride) 291.291 mls @ 582.631 mls/hr IV ONCE ERWIN Stop: 08/21/22 23:59 Home Medications Medication Instructions Recorded Confirmed Type multivitamin with folic acid 400 1 tab PO BEDTIME 07/21/21 07/15/22 History mcg tablet (Daily-Eve (with folic acid)) losartan 25 mg tablet 1 tab DAILY 07/15/22 History ondansetron HCl 4 mg tablet 8 mg PO Q8H PRN Nausea 07/15/22 07/15/22 History Allergies Allergy/AdvReac Type Severity Reaction Status Date / Time No Known Allergies Allergy Verified 07/29/22 10:03 Exam Vital signs: Vital Signs Temp 97.3 F 08/21/22 10:07 Pulse 76 08/21/22 10:07 Resp 18 08/21/22 10:07 BP 140/65 H 08/21/22 10:07 Pulse Ox 97 08/21/22 10:07 O2 Del Method 08/21/22 10:07 Intake & Output 08/20/22 08/21/22 08/21/22 18:59 06:59 18:59 Intake Total 100 / 100 Balance 100 / 100 Intake: Intake, IV Amount 100 / 100 Ondansetron HCL/NS 16 mg In 50 50 / 50 ml @ 200 mls/hr IV ONCE ERWIN Rx# :[id number] dexAMETHasone sod phosphate/NS 50 / 50 12 mg In 50 ml @ 200 mls/hr IV ONCE ERWIN Rx#:[id number] Other: Weight 59.4 kg [place] Weight in Grams 46969 Weight 59.4 kg BMI result Body Mass Index 25.3 - Constitutional Present: no acute distress, mild distress - Routine HEENT Exam Head: Present: normal inspection Eye: Present: normal appearance ENT: Present: mucous membranes moist - Routine Neck Exam Present: full ROM - Routine Respiratory Exam Present: CTAB - Routine Cardiovascular Exam Cardiovascular: Present: RRR, S1, S2 - Routine Abdominal Exam Present: soft, tenderness. Absent: nontender - Routine Rectal Exam Patient deferred: digital exam - Routine Extremities Exam Present: nontender - Routine Back/Spine/Pelvis Exam Back/Spine: Present: full ROM - Routine Skin Exam Present: intact - Routine Neurological Exam Present: alert, oriented X3 - Routine Psychiatric Exam Present: normal affect Data - Labs CBC & Chem 7: 08/20/22 10:48 08/20/22 10:48 Assessment and Plan Patient Active problem list reviewed?: Yes (1) Pancreatic carcinoma Status: Acute Assessment and plan: This is a pleasant 70 year-old lady who presents with a couple of months history of abdominal pain that recently worsened. CT scan of the abdomen revealed: New mass in the head, neck and body the pancreas measuring 4.5 x 6.5 cm worrisome for neoplasm. New bilateral pulmonary nodules. Upper abdominal varices. Large esophageal hernia or intrathoracic stomach. Diverticulosis of the colon. Probable small uterine fibroid. Concern was for pancreatic cancer. Tumor marker Ca 19/9 is :4524. Biopsy was done on 11/12. Pathology revealed: Positive for atypical mucinous neoplasm. Moderately cellular specimen consisting of sheets of mucinous epithelium with cytologic atypia characterized by loss of clarity an irregularly shaped nuclei with Dr. chromatin in irregular nuclear membrane. Differential diagnosis includes an adenocarcinoma, mucinous cystic neoplasm and intraductal papillary mucinous neoplasm. I will proceed with a PET scan for further evaluation. This was done on 12/03, and revealed: Mild FDG activity in the pancreatic mass involving the head and adjacent pancreatic body corresponding to the recently biopsied malignancy. Multiple predominantly subcentimeter pulmonary nodules are present throughout the lungs likely represent metastases. Most of these are too small to be characterized on the PET images but the largest shows FDG activity. No additional abnormality suspicious for metastatic or other malignant lesions are noted. Chronic left posterior parietal cerebral infarction Large hiatal hernia.. My plan was to proceed with systemic chemotherapy. She has been started on gemcitabine and Abraxane based regimen. After she had 3 cycles, he had CT scan. Repeat imaging from 04/04: CT abdomen: No appreciable change in the mass in the body of the pancreas from October [address] chest: Multiple bilateral pulmonary nodules not appreciably changed from previous PET/CT scan November 2020. Enlarged heart. Large esophageal hernia or intrathoracic stomach. I discussed the CT scan results with her, told her that even though there has not been much decrease in size of the tumor things do appear stable. Stable disease is considered a response to treatment. Hopefully things will decrease with the continued chemotherapy. She has been tolerating it well. She complains of intermittent diarrhea, after chemotherapy. CT scan of the abdomen from April 04: No appreciable change in the mass in the body of the pancreas from October [address] chest from April 04: Multiple bilateral pulmonary nodules not appreciably changed from previous PET/CT scan November 2020. Enlarged heart. Large esophageal hernia or in trathoracic stomach. She had a CT scan of the chest and abdomen on 08/22 which revealed: Previously described large 7 mm pulmonary nodules are smaller. No new pulmonary nodules are seen. A hypodense mass in the body of the pancreas and encasement surrounding the SMA is stable. The tail of the pancreas is not visualized, similar to previous study. No abnormal chest, abdomen and pelvic lymphadenopathy. Stable calcified left fibroid and right paramidline hernia containing fat and bowel loops. Moderate constipation. She is tolerating the treatment well. CA 19-9 was down to 1878 in August, 5 in May, from 4855 in November. On 03/10: 6267. Most recently went up to 2550. l re-staged her with another CT scan. CT chest revealed:. Interval increase in size in some of the larger pulmonary nodules compared to August 2021 exam. I had shared the results with her and her son, at her last visit. Explained to them that it appears that the disease is getting refractory to the current regimen. I will need to switch her to a different protocol. Oxaliplatin with 5 FU and leucovorin, would be 1 option.. I went over the details of the treatment including the pros and the cons. Explained the procedure for the Port-A-Cath placement as well as the risks and benefits of it. She had a Port-A-Cath placed for that. She needed time to think and reflect. She recieved one cycle on 02/17. She did not tolerate it well. She had some nausea abdominal pain and diarrhea. She mentions some blood in the stools. That is going away however she is still feeling rather fatigued. She does not wish to continue that regimen. She and her son are concerned that there were few treatment delays with the [place] gerardo Abraxane and that could have accounted for the progression seen on the CT scan. They wanted to go back to that regimen since she was tolerating well. She was restarted on Gemzar and Abraxane based regimen. She has been tolerating it well. CA 19-9 from 06/11:4537. CT scan of the abdomen and pelvis from 06/24: Stable pancreatic mass. Stable adenopathy. CT of the chest from 06/24: Slight interval increase in size in bilateral pulmonary nodules. I shared the results with her and her son. Her disease appears to be holding quite stable at this point. She is tolerating the treatment very well. PLAN: The plan is to continue her on the current regimen for another couple of cycles. Then re-stage her with imaging. Next month. I will follow-up on the tumor marker as well. She will return in 4 weeks for a follow-up. Thanks, CC: Dr. Lancaster. - Time Spent With Patient Time Spent with Patient (in minutes): 30
[2022-08-21] MEDS: PACLitaxeL protein-bound 200 MG in Container,Empty 0 ML 80 MG IV (12:06)
--- NOTE | 2022-08-21 14:56 | MHC.HEMONC ---
Pt here for C20D15 Abraxane/Gemcitabine. Port accessed with blood return noted. Labs drawn yesterday reviewed-okay to receive treatment today. Pt states she has some nausea at times, no vomitus, has some fatigue. Continues with pain control with oxycodone and oxycontin. Dr Cifuentes into see pt, Pre medicated with tylenol, decadron, pepcid, zofran. Abraxane/Gemcitabine given as ordered-tolerated well. Port flushed with heparin and port de accessed. Next appointment scheduled. Discharge packet given. Pt instructed to call for any side effects-verbalizes understanding.
[2022-08-25 07:26] LABS: Carbohydrate Antigen 19-9 6165 U/mL (<34)
[2022-09-03 10:29] LABS: MANUAL DIFF FLAG NO
[2022-09-03 10:43] LABS: Basophils Percent Auto 0.4 % (0-2); Eosinophils Absolute Auto 0.2 X10*3/uL (0.0-0.4); Hematocrit 35.7 % (37.0-47.0); Hemoglobin 11.3 g/dl (12.0-16.0); Imm Gran Abs Auto 0.02 X10*3/uL (0.00-0.03); Imm Gran Pct Auto 0.4 % (0.0-0.4); Lymphocytes Absolute Auto 0.9 X10*3/uL (1.2-4.9); Lymphocytes Percent Auto 18.6 % (20-40); Mean Corpuscular HGB Conc 31.7 g/dl (31.0-35.0); Mean Corpuscular Hemoglobin 30.1 pg (27.0-33.0); Mean Corpuscular Volume 94.9 fL (80.0-98.0); Mean Platelet Volume 10.1 fL (9.4-12.3); Monocytes Absolute Auto 0.5 X10*3/uL (0.1-1.2); Monocytes Percent Auto 10.1 % (2-11); Neutrophils Absolute Auto 3.3 x10*3/uL (2.0-8.3); Neutrophils Percent Auto 66.5 % (45-73); Platelet Count 125 X10*3/uL (160-400); Red Blood Count 3.76 X10*6/uL (4.20-5.50); Red Cell Distribution Width 14.5 % (11.0-16.0); White Blood Count 4.9 X10*3/uL (4.8-10.8)
[2022-09-03 10:59] LABS: Alanine Aminotransferase 27 U/L (0-31); Albumin Level 4.1 g/dL (3.5-5.0); Alkaline Phosphatase 64 U/L (39-117); Anion Gap 16 (12-20); Aspartate Amino Transferase 36 U/L (5-31); Bilirubin Total < 0.2 mg/dL (0.0-1.0); Blood Urea Nitrogen 10 mg/dL (9-16); Calcium 9.2 mg/dL (8.4-10.2); Carbon Dioxide 25 mmol/L (22-29); Chloride 105 mmol/L (96-108); Creatinine Clr Calc Pharmacy 51.3; Estimated Glomerular Filt Rate > 60; Glucose Random 196 mg/dL (60-115); Sodium 142 mmol/L (135-145); Total Protein 6.8 g/dL (6.5-8.0)
--- NOTE | 2022-09-03 16:23 | MHC.HEMONC ---
Pre-chemo labs obtained and reviewed for treatment on 10/05/22.
[2022-09-04 10:03] VITALS: BP 178/77; PULSE 81; RESP 18; TEMP 36.4; O2SAT 96; BMI 25.7
[2022-09-04] MEDS: Acetaminophen 325 MG TABLET 650 MG PO (10:16)
[2022-09-04] MEDS: dexAMETHasone sod phosphate/NS 12 MG/50 ML PIGGYBACK 200 MG IV (10:17)
[2022-09-04] MEDS: diphenhydrAMINE HCL 50 MG/ML VIAL 25 MG IVPUSH (11:06)
[2022-09-04] MEDS: PACLitaxeL protein-bound 200 MG in Container,Empty 0 ML 80 MG IV (11:39)
--- NOTE | 2022-09-04 14:24 | MHC.HEMONC ---
Here for c21d1 abraxane/gemzar. Labs drawn yesterday, reviewed. Port accessed with good blood return. Reports some all body aches relieved with oral pain medication at home. Premedications and chemo tolerated well. Discharge packet given, patient aware of next appointment.
[2022-09-17 10:44] LABS: MANUAL DIFF FLAG NO
[2022-09-17 11:05] LABS: Basophils Percent Auto 0.3 % (0-2); Eosinophils Absolute Auto 0.2 X10*3/uL (0.0-0.4); Eosinophils Percent Auto 6.1 % (0-4); Hematocrit 35.8 % (37.0-47.0); Hemoglobin 11.2 g/dl (12.0-16.0); Imm Gran Abs Auto 0.01 X10*3/uL (0.00-0.03); Imm Gran Pct Auto 0.3 % (0.0-0.4); Lymphocytes Percent Auto 25.7 % (20-40); Mean Corpuscular HGB Conc 31.3 g/dl (31.0-35.0); Mean Corpuscular Hemoglobin 29.4 pg (27.0-33.0); Mean Platelet Volume 10.6 fL (9.4-12.3); Monocytes Absolute Auto 0.5 X10*3/uL (0.1-1.2); Monocytes Percent Auto 12.7 % (2-11); Neutrophils Absolute Auto 2.2 x10*3/uL (2.0-8.3); Neutrophils Percent Auto 54.9 % (45-73); Platelet Count 124 X10*3/uL (160-400); Red Blood Count 3.81 X10*6/uL (4.20-5.50); Red Cell Distribution Width 13.9 % (11.0-16.0); White Blood Count 3.9 X10*3/uL (4.8-10.8)
[2022-09-17 11:16] LABS: Alanine Aminotransferase 18 U/L (0-31); Albumin Level 4.1 g/dL (3.5-5.0); Alkaline Phosphatase 65 U/L (39-117); Anion Gap 15 (12-20); Aspartate Amino Transferase 27 U/L (5-31); Bilirubin Total 0.2 mg/dL (0.0-1.0); Blood Urea Nitrogen 13 mg/dL (9-16); Calcium 9.4 mg/dL (8.4-10.2); Carbon Dioxide 25 mmol/L (22-29); Chloride 102 mmol/L (96-108); Creatinine Clr Calc Pharmacy 49.8; Estimated Glomerular Filt Rate > 60; Glucose Random 226 mg/dL (60-115); Potassium 4.4 mmol/L (3.3-5.1); Sodium 138 mmol/L (135-145); Total Protein 6.9 g/dL (6.5-8.0)
--- NOTE | 2022-09-17 12:33 | MHC.HEMONC ---
Pt here for pre chemo lab draw. Blood drawn by gis scientist-specimen to lab
[2022-09-18 10:07] VITALS: BP 166/77; PULSE 88; RESP 18; TEMP 37.1; O2SAT 96; BMI 25.0
[2022-09-18] MEDS: 0.9 % Sodium Chloride 1,000 ML 999 ML IV (10:45)
--- NOTE | 2022-09-18 11:36 | P.PNHO-ONC_ITS ---
Medical Summary - Medical Summary Date of Service: 09/18/22 Chief complaint: Follow-up for: Pancreatic carcinoma. Medical Summary: DIAGNOSIS: Pancreatic Cancer. CURRENT THERAPY: Completed Gemcitabine Abraxane., cycle 14, day 15. on 01/15. She then received: One cycle of Liposomal irinotecan with 5 FU leucovorin on 02/17. She did not tolerate it. She was subsequently started on gemcitabine Abraxane. She received treatment 21 on 09/04. Interval History Interval history: This is a pleasant 71 year-old lady, here for a follow-up visit. She has felt rather fatigued. She was seen in the [facility] ER on Wednesday last week, for shortness of breath and belly pain. She had blood work urine and CT scans which were stable. Lately she has noticed an occasional headache. Was given a medication which helps. Denies fever but has had chills. She denies dysphagia or odynophagia. No dizziness. Denies any fever nor chills. She denies any chest pain or trouble breathing. Sometimes she nausea in the morning. Occasionally, she complains of pain in her belly, around the periumbilical area. This radiates to the side and then to the back. It comes and goes. Pain medicines are helping. Sometimes she gets loose bowels. Her apetite is better with the Megace, her weight is up. She has chronic pain in the back. She is in good spirits. Rest of the review of systems is unremarkable. Previous history: She was seen in house. She presented to the hospital with complaints of abdominal pain. She complained of pain all over , on her abdomen, back, chest, legs. She reported that the abdominal pain had been going on for 2 months but worsened over the past 3 days. The pain is generalized abdominal pain, 8/10, intermittent, nonradiating, associated with nausea and vomiting. She also had occasional chills with no fever. She reported the pain to be just generalized discomfort. When asked about weight loss she reports about 1-2 lb of weight loss but not more. She also complained of years of shortness of breath with no change. She denied urinary symptoms and no lower extremity edema. Patient also complained of bloating, and low appetite. Her temp was 98.6?, pulse rate of 69, respiratory rate of 19, and oxygen saturation of 95% on room air. Labs: significant for PT of 27.7 INR of 2.3, sodium of 130, BUN of 11 with creatinine of 0.77, troponin 38 trended down to 37, BNP of 259, CT abdomen showed: New mass in the head neck and body of the pancreas measuring 4.5 x 6.5 cm worrisome for neoplasm. New bilateral pulmonary nodules. Upper abdominal varices. Large esophageal hernia, or intrathoracic stomach. Diverticulosis of the colon. Probable small uterine fibroid. Hospital course: The patient was evaluated for abdominal pain. I recommended, Biopsy of the pancreas. Discussed with IR who recommended holding both aspirin and warfarin for 3 days prior to procedure which was to be scheduled for next Wednesday. After discussing with the patient, she preferred to come back at the time of the biopsy. Her INR of 1.6 at the day of discharge. She was noted to have hyponatremia which seems to be chronic around 130-131. BNP was noted to be mildly elevated around 200 which was the baseline for her, looking back at her previous readings. Not in acute CHF exacerbation. les. Upper abdominal varices. Large esophageal hernia Sometimes she loses a sense of taste and smell. She had COVID about a year ag o. Past medical history: Diabetes, COPD, CVA, hypertension. Review of Systems - Constitutional Reports no additional constitutional complaints, Denies fever(s), Reports headache(s), Reports weakness, Reports weight loss - Eyes Reports no additional eye complaints - ENT Reports no additional ear, nose, mouth, and throat complaints - Cardiovascular Reports no additional cardiovascular complaints, Reports shortness of breath - Respiratory Reports no additional respiratory complaints - Gastrointestinal Reports no additional gastrointestinal complaints, Reports abdominal pain - Genitourinary Reports no additional female genitourinary complaints - Musculoskeletal Reports no additional musculoskeletal complaints - Integumentary/Breasts Skin/Breast: Reports no additional skin complaints - Neurologic Reports no additional neurologic complaints, Reports headache(s), Denies loss of vision, Reports weakness - Psychiatric Reports no additional psychiatric complaints - Endocrine Reports no additional endocrine complaints - Hematologic/Lymphatic Reports no additional hematologic/lymphatic complaints - Allergic/Immunologic Reports no additional allergic/immunologic complaints [facility] Medical History: Medical History (Last Reviewed 07/15/22 @ 10:37 by Zahira Goncalves DO) Anxiety and depression Biventricular ICD (implantable cardioverter-defibrillator) in place Cardiomyopathy Congestive heart failure COPD (chronic obstructive pulmonary disease) Coronary artery disease Current use of anticoagulant therapy CVA (cerebral vascular accident) Diverticulitis Esophageal hernia GERD (gastroesophageal reflux disease) History of renal calculi HTN (hypertension) Hypercholesterolemia Hyponatremia Osteopenia Type 2 diabetes mellitus with hyperglycemia Umbilical hernia Functional capacity: uses cane/walker Patient : No Family History: Family History (Last Reviewed 06/25/22 @ 09:43 by Lorena Stringer) Father Medical history unknown Mother Diabetes Hypertension Surgical History: Surgical History (Last Reviewed 07/15/22 @ 10:37 by Zahira Goncalves DO) History of hemicolectomy History of incisional hernia repair History of pacemaker Social History: Social History (Last Reviewed 07/15/22 @ 10:37 by Zahira Goncalves DO) Living Situation History: Household Members: Family Housing: House Are you a primary hospice care transitions coordinator to a significant other at home: No Do you presently have visiting nurse or other home services: No Alcohol History Details: Currently Displaying Signs/Symptoms of Alcohol Withdrawal: No Tobacco History: Patient Tobacco Use Status: Never used Tobacco e-Cigarette/Vaping Use: Never Used Second Hand Smoke Exposure: No Substance Use History: Use of substances other than those prescribed or required for medical reasons : No Domestic Abuse History: Have you been hit, kicked, punched, or otherwise hurt by someone within the past year? If so, by whom?: No Do you feel safe in your current relationship?: No Healthcare Practices: [employer] Healthcare Practices: Denominational/ Jew Advance Directives: Advance Directives Date on File: 02/17/22 Nutrition Assessment: Recently lost weight without trying: Yes How much weight loss: 24-33 pounds Eating poorly because of decreased appetite: Yes Nutrition screen score: 6 Nutrition Risks: Acute nausea or vomiting Patient : No : No Poor oral hygiene: No Occupation Assessmet: service: No Current occupational status: retired Oncology Screenings - ECOG Performance Status ECOG Performance Status: 1 Home Medications and Allergies Current Medications: Current Medications Acetaminophen (Acetaminophen 325 Mg Tablet) 650 mg PO ONCE ERWIN Stop: 09/18/22 23:59 Diphenhydramine HCl (Diphenhydramine Hcl 50 Mg/Ml Vial) 25 mg IVPUSH ONCE ERWIN Stop: 09/18/22 23:59 Dexamethasone Sodium Phosphate (Decadron) 12 mg in 50 mls @ 200 mls/hr IV ONCE ERWIN Stop: 09/18/22 23:59 Ondansetron HCl (Zofran) 16 mg in 50 mls @ 200 mls/hr IV ONCE ERWIN Stop: 09/18/22 23:59 Last Admin: 09/18/22 11:05 Dose: 200 mls/hr Sodium Chloride (Ns) 1,000 mls @ 999 mls/hr IV .Q1H1M ERWIN Stop: 09/18/22 12:00 Last Admin: 09/18/22 10:45 Dose: 999 mls/hr Home Medications Medication Instructions Recorded Confirmed Type losartan 25 mg tablet 1 tab DAILY 07/15/22 09/18/22 History Allergies Allergy/AdvReac Type Severity Reaction Status Date / Time No Known Allergies Allergy Verified 09/15/22 11:36 Exam Vital signs: Vital Signs Temp 98.7 F 09/18/22 10:07 Pulse 88 09/18/22 10:07 Resp 18 09/18/22 10:07 BP 166/77 H 09/18/22 10:07 Pulse Ox 96 09/18/22 10:07 O2 Del Method 09/18/22 10:07 Intake & Output 09/17/22 09/18/22 09/18/22 18:59 06:59 18:59 Other: Weight 58.7 kg Weight in Grams 54800 Weight 58.7 kg BMI result Body Mass Index 25.0 - Constitutional Present: no acute distress, mild distress - Routine HEENT Exam Head: Present: normal inspection Eye: Present: normal appearance ENT: Present: mucous membranes moist - Routine Neck Exam Present: full ROM - Routine Respiratory Exam Present: CTAB - Routine Cardiovascular Exam Cardiovascular: Present: RRR, S1, S2 - Routine Abdominal Exam Present: soft, tenderness. Absent: nontender - Routine Rectal Exam Patient deferred: digital exam - Routine Extremities Exam Present: nontender - Routine Back/Spine/Pelvis Exam Back/Spine: Present: full ROM - Routine Skin Exam Present: intact - Routine Neurological Exam Present: alert, oriented X3 - Routine Psychiatric Exam Present: normal affect Data - Labs CBC & Chem 7: 09/17/22 10:36 09/17/22 10:36 Assessment and Plan Patient Active problem list reviewed?: Yes (1) Pancreatic carcinoma Status: Acute Assessment and plan: This is a pleasant 70 year-old lady who presents with a couple of months history of abdominal pain that recently worsened. CT scan of the abdomen revealed: New mass in the head, neck and body the pancreas measuring 4.5 x 6.5 cm worrisome for neoplasm. New bilateral pulmonary nodules. Upper abdominal varices. Large esophageal hernia or intrathoracic stomach. Diverticulosis of the colon. Probable small uterine fibroid. Concern was for pancreatic cancer. Tumor marker Ca 19/9 is :4524. Biopsy was done on 11/12. Pathology revealed: Positive for atypical mucinous neoplasm. Moderately cellular specimen consisting of sheets of mucinous epithelium with cytologic atypia characterized by loss of clarity an irregularly shaped nuclei with Dr. chromatin in irregular nuclear membrane. Differential diagnosis includes an adenocarcinoma, mucinous cystic neoplasm and intraductal papillary mucinous neoplasm. I will proceed with a PET scan for further evaluation. This was done on 12/03, and revealed: Mild FDG activity in the pancreatic mass involving the head and adjacent pancreatic body corresponding to the recently biopsied malignancy. Multiple predominantly subcentimeter pulmonary nodules are present throughout the lungs likely represent metastases. Most of these are too small to be diivna racterized on the PET images but the largest shows FDG activity. No additional abnormality suspicious for metastatic or other malignant lesions are noted. Chronic left posterior parietal cerebral infarction Large hiatal hernia.. My plan was to proceed with systemic chemotherapy. She has been started on gemcitabine and Abraxane based regimen. After she had 3 cycles, he had CT scan. Repeat imaging from 04/04: CT abdomen: No appreciable change in the mass in the body of the pancreas from October [address] chest: Multiple bilateral pulmonary nodules not appreciably changed from previous PE T/CT scan November 2020. Enlarged heart. Large esophageal hernia or intrathoracic stomach. I discussed the CT scan results with her, told her that even though there has not been much decrease in size of the tumor things do appear stable. Stable disease is considered a response to treatment. Hopefully things will decrease with the continued chemotherapy. She has been tolerating it well. She complains of intermittent diarrhea, after chemotherapy. CT scan of the abdomen from April 04: No appreciable change in the mass in the body of the pancreas from October [address] chest from April 04: Multiple bilateral pulmonary nodules not appreciably changed from previous PET/CT scan November 2020. Enlarged heart. Large esophageal hernia or intrathoracic stomach. She had a CT scan of the chest and abdomen on 08/22 which revealed: Previously described large 7 mm pulmonary nodules are smaller. No new pulmonary nodules are seen. A hypodense mass in the body of the pancreas and encasement surrounding the SMA is stable. The tail of the pancreas is not visualized, similar to previous jessica dy. No abnormal chest, abdomen and pelvic lymphadenopathy. Stable calcified left fibroid and right paramidline hernia containing fat and bowel loops. Moderate constipation. She is tolerating the treatment well. CA 19-9 was down to 1878 in August, 5 in May, from 4855 in November. On 03/10: 6267. Most recently went up to 2550. l re-staged her with another CT scan. CT chest revealed:. Interval increase in size in some of the larger pulmonary nodules compared to August 2021 exam. I had shared the results with her and her son, at her last visit. Explained to them that it appears that the disease is getting refractory to the current regimen. I will need to switch her to a different protocol. Oxaliplatin with 5 FU and leucovorin, would be 1 option.. I went over the details of the treatment including the pros and the cons. Explained the procedure for the Port-A-Cath placement as well as the risks and benefits of it. She had a Port-A-Cath placed for that. She needed time to think and reflect. She recieved one cycle on 02/17. She did not tolerate it well. She had some nausea abdominal pain and diarrhea. She mentions some blood in the stools. That is going away however she is still feeling rather fatigued. She does not wish to continue that regimen. She and her son are concerned that there were few treatment delays with the Gemzar Abraxane and that could have accounted for the progression seen on the CT scan. They wanted to go back to that regimen since she was tolerating well. She was restarted on Gemzar and Abraxane based regimen. She has been tolerating it well. CA 19-9 from 06/11:4537. CT scan of the abdomen and pelvis from 06/24: Stable pancreatic mass. Stable adenopathy. CT of the chest from 06/24: Slight interval increase in size in bilateral pulmonary nodules. I shared the results with her and her son. Her disease appears to be holding quite stable at this point. Lately she has been feeling more tired and short of breath. . I feel the treatment is catching up with her. I discussed with her and her son. Together we decided to hold off today's treatment to give her time to recover. PLAN: She was given IV hydration and antiemetics today. The plan is to give her a couple of week's break. She will return then to resume treatment. Will follow-up on the scans next month. I will follow-up on the tumor marker as well. She will return in 4 weeks for a follow-up. Thanks, CC: Dr. Lancaster. - Time Spent With Patient Time Spent with Patient (in minutes): 30
--- NOTE | 2022-09-18 13:23 | MHC.HEMONC ---
Pt here for for C21D15 Abraxane/Gemzar. Pt states she has been ill for the last 3 weeks with fatigue, pain and nausea. States she went to [facility] for evaluation and was sent home. Lab results reviewed-Dr Cifuentes notified of pt's complaints and into see pt. Pt's son Eliot with pt during visit. Plan to hold today's treatment and have pt return in 2 weeks-pt agreeable to plan. Port accessed with blood return noted. 1000ML 0.9% NS and zofran given as ordered. Port flushed with heparin and de accessed. Next appointment scheduled for 10/02/22 for chemotherapy. Discharge packet given. Pt instructed to call with any concerns or side effects-verbalizes understanding
[2022-09-23 08:47] LABS: Carbohydrate Antigen 19-9 6009 U/mL (<34)
[2022-10-01 10:36] LABS: MANUAL DIFF FLAG NO
[2022-10-01 10:42] LABS: Basophils Percent Auto 0.3 % (0-2); Eosinophils Absolute Auto 0.4 X10*3/uL (0.0-0.4); Eosinophils Percent Auto 5.6 % (0-4); Hematocrit 39.2 % (37.0-47.0); Hemoglobin 12.5 g/dl (12.0-16.0); Imm Gran Abs Auto 0.02 X10*3/uL (0.00-0.03); Imm Gran Pct Auto 0.3 % (0.0-0.4); Lymphocytes Absolute Auto 0.9 X10*3/uL (1.2-4.9); Lymphocytes Percent Auto 13.7 % (20-40); Mean Corpuscular HGB Conc 31.9 g/dl (31.0-35.0); Mean Corpuscular Hemoglobin 29.6 pg (27.0-33.0); Mean Corpuscular Volume 92.7 fL (80.0-98.0); Mean Platelet Volume 10.5 fL (9.4-12.3); Monocytes Absolute Auto 0.7 X10*3/uL (0.1-1.2); Monocytes Percent Auto 9.9 % (2-11); Neutrophils Absolute Auto 4.7 x10*3/uL (2.0-8.3); Neutrophils Percent Auto 70.2 % (45-73); Platelet Count 180 X10*3/uL (160-400); Red Blood Count 4.23 X10*6/uL (4.20-5.50); Red Cell Distribution Width 13.3 % (11.0-16.0); White Blood Count 6.7 X10*3/uL (4.8-10.8)
[2022-10-01 11:06] LABS: Alanine Aminotransferase 20 U/L (0-31); Albumin Level 4.4 g/dL (3.5-5.0); Alkaline Phosphatase 71 U/L (39-117); Anion Gap 17 (12-20); Aspartate Amino Transferase 27 U/L (5-31); Bilirubin Total 0.5 mg/dL (0.0-1.0); Blood Urea Nitrogen 18 mg/dL (9-16); Calcium 9.8 mg/dL (8.4-10.2); Carbon Dioxide 27 mmol/L (22-29); Chloride 100 mmol/L (96-108); Creatinine Clr Calc Pharmacy 43.9; Estimated Glomerular Filt Rate 59; Glucose Random 170 mg/dL (60-115); Potassium 4.7 mmol/L (3.3-5.1); Sodium 139 mmol/L (135-145); Total Protein 7.4 g/dL (6.5-8.0)
--- NOTE | 2022-10-01 11:38 | MHC.HEMONC ---
Pt here for pre chemo labs. Blood drawn peripherally by co founder and chairman-specimen to lab. Pt complaining of right neck to base of head pain, burning and itch. Small white bumps noted. Dr Cifuentes notified-plan for script for Valcyclovir-pt instructed to start valcyclovir if rash develops-pt verbalizes understanding to information given
[2022-10-02 10:09] VITALS: BP 135/73; PULSE 85; RESP 18; TEMP 36.8; O2SAT 95; BMI 25.0
[2022-10-02] MEDS: Acetaminophen 325 MG TABLET 650 MG PO (11:27)
[2022-10-02] MEDS: Famotidine/PF 20 MG/2 ML VIAL IVPUSH (11:32)
[2022-10-02] MEDS: diphenhydrAMINE HCL 50 MG/ML VIAL 25 MG IVPUSH (11:33)
[2022-10-02] MEDS: PACLitaxeL protein-bound 200 MG in Container,Empty 0 ML 80 MG IV (12:08)
--- NOTE | 2022-10-02 15:00 | MHC.HEMONC ---
Pt here for C22D1 ABRAXANE/GEMZAR. Labs drawn yesterday reviewed-okay to receive treatment today. Pt states she has occasional diarrhea and constipation. Occasional nausea no vomiting. Continues with fatigue. Pt states she continues with intermittent pain in right neck radiating to base of head, states has occasional itch and burning in area-no rash noted at site. Pt has script for Valcyclovir if rash appears-instructed on when to take antiviral medication if needed-verbalizes understanding to information given. Port accessed with blood return noted. Pre medicated with tylenol, benadryl, pepcid, zofran. Abraxane/Gemzar given as ordered tolerated well. Port flushed with heparin and de accessed. Next appointment scheduled in 3 weeks secondary to clinic closure on . Discharge packet given. Instructed to call with any concerns or side effects-verbalizes understanding.
--- NOTE | 2022-10-21 11:33 | MHC.HEMONC ---
Refill request: Oxycodone and Morphine given to Dr. Clark (Dr. Cifuentes out of office today).
--- NOTE | 2022-10-22 08:15 | MHC.HEMONC ---
Received message from pt's son Eliot. Son states pt does not want to receive chemo- treatment any longer.. Returned call with no answer-message left to call department. Dr Cifuentes notified
--- NOTE | 2022-10-22 09:37 | MHC.HEMONC ---
Televisit scheduled with Dr Cifuentes for 10/23/22 at 1615. Pt's son called and notified. Son states pt will not be in today for lab work and will not be in tomorrow for chemotherapy. Dr cifuentes notified, pharmacy notified
--- NOTE | 2022-10-23 16:14 | P.PNHO-ONC_ITS ---
[facility] Clinic Telehealth - Telehealth Location of Provider rendering services: Hem/onc office. Location of Patient: Home. Patient Identification confirmed using: Name, : Yes Telehealth Method: Telephone. Patient verbally consented to treatment: Yes. Patient verbally consented to billing insurance company: Yes Patient informed of any privacy concerns related to visit: Yes Medical Summary - Medical Summary Date of Service: 10/23/22 Chief complaint: Follow-up for: Pancreatic carcinoma. Medical Summary: DIAGNOSIS: Pancreatic Cancer. CURRENT THERAPY: Completed Gemcitabine Abraxane., cycle 14, day 15. on 01/15. She then received: One cycle of Liposomal irinotecan with 5 FU leucovorin on 02/17. She did not tolerate it. She was subsequently started on gemcitabine Abraxane. She received treatment 21 on 09/04. Interval History Interval history: This is a pleasant 71 year-old lady, with whom a tele visit was held. The patient does not feel well. She has had increasing pain in her epigastric area and in the back. She feels nauseous at times. She is taking the nausea medicine. Appetite goes up and down. She feels the chemo therapy is getting to be too much for her. She has had to go to the ER afterwards last few times. She does not wish to continue. She has felt rather fatigued. She has noticed an occasional headache. No dizziness. Denies fever but has had chills. She denies dysphagia or odynophagia. She denies any chest pain or trouble breathing. Sometimes she complains of pain in her belly, around the periumbilical area. This radiates to the side and then to the back. It comes and goes. Sometimes she gets loose bowels. Her apetite is so so, her weight is stable. She is in good spirits. Rest of the review of systems is unremarkable. She has moved in with her son in [place]. Previous history: She was seen in the [facility] ER on Wednesday last week, for shortness of breath and belly pain. She had blood work urine and CT scans which were stable. She was seen in house. She presented to the hospital with complaints of abdominal pain. She complained of pain all over , on her abdomen, back, chest, legs. She reported that the abdominal pain had been going on for 2 months but worsened over the past 3 days. The pain is generalized abdominal pain, 8/10, intermittent, nonradiating, associated with nausea and vomiting. She also had occasional chills with no fever. She reported the pain to be just generalized discomfort. When asked about weight loss she reports about 1-2 lb of weight loss but not more. She also complained of years of shortness of breath with no change. She denied urinary symptoms and no lower extremity edema. Patient also complained of bloating, and low appetite. Her temp was 98.6?, pulse rate of 69, respiratory rate of 19, and oxygen saturation of 95% on room air. Labs: significant for PT of 27.7 INR of 2.3, sodium of 130, BUN of 11 with creatinine of 0.77, troponin 38 trended down to 37, BNP of 259, CT abdomen showed: New mass in the head neck and body of the pancreas measuring 4.5 x 6.5 cm worrisome for neoplasm. New bilateral pulmonary nodules. Upper abdominal varices. Large esophageal hernia, or intrathoracic stomach. Diverticulosis of the colon. Probable small uterine fibroid. Hospital course: The patient was evaluated for abdominal pain. I recommended, Biopsy of the pancreas. Discussed with IR who recommended holding both aspirin and warfarin for 3 days prior to procedure which was to be scheduled for next Wednesday. After discussing with the patient, she preferred to come back at the time of the biopsy. Her INR of 1.6 at the day of discharge. She was noted to have hyponatremia which seems to be chronic around 130-131. BNP was noted to be mildly elevated around 200 which was the baseline for her, looking back at her previous readings. Not in acute CHF exacerbation. les. Upper abdominal varices. Large esophageal hernia Sometimes she loses a sense of taste and smell. She had COVID about a year ago. Past medical history: Diabetes, COPD, CVA, hypertension. Review of Systems - Constitutional Reports no additional constitutional complaints, Reports fatigue, Denies fever(s), Reports weakness, Denies weight gain - Eyes Reports no additional eye complaints - ENT Reports no additional ear, nose, mouth, and throat complaints - Cardiovascular Reports no additional cardiovascular complaints - Respiratory Reports no additional respiratory complaints - Gastrointestinal Reports no additional gastrointestinal complaints, Reports abdominal pain - Genitourinary Reports no additional female genitourinary complaints - Musculoskeletal Reports no additional musculoskeletal complaints, Reports back pain - Integumentary/Breasts Skin/Breast: Reports no additional skin complaints - Neurologic Reports no additional neurologic complaints, Reports headache(s), Denies loss of vision, Reports weakness - Psychiatric Reports no additional psychiatric complaints - Endocrine Reports no additional endocrine complaints - Hematologic/Lymphatic Reports no additional hematologic/lymphatic complaints - Allergic/Immunologic Reports no additional allergic/immunologic complaints Oncology Screenings - ECOG Performance Status ECOG Performance Status: 1 Home Medications and Allergies Current Medications: Current Medications Acetaminophen (Acetaminophen 325 Mg Tablet) 650 mg PO ONCE ERWIN Stop: 10/23/22 23:59 Diphenhydramine HCl (Diphenhydramine Hcl 50 Mg/Ml Vial) 25 mg IVPUSH ONCE ERWIN Stop: 10/23/22 23:59 Famotidine (Famotidine/Pf 20 Mg/2 Ml Vial) 20 mg IVPUSH ONCE ERWIN Stop: 10/23/22 23:59 Ondansetron HCl (Zofran) 16 mg in 50 mls @ 200 mls/hr IV ONCE ERWIN Stop: 10/23/22 23:59 Home Medications Medication Instructions Recorded Confirmed Type losartan 25 mg tablet 1 tab DAILY 07/15/22 10/23/22 History albuterol sulfate 90 mcg/actuation 2 puff inhalation Q4H PRN 10/06/22 10/23/22 History aerosol inhaler Respiratory Distress fluticasone furoate 200 1 inh inhalation DAILY 10/06/22 10/23/22 History mcg/actuation blister powder for inhalation (Arnuity Ellipta) Allergies Allergy/AdvReac Type Severity Reaction Status Date / Time No Known Allergies Allergy Verified 10/23/22 15:56 Exam Vital signs: Vital Signs Temp 98.2 F 10/02/22 10:09 Pulse 85 10/02/22 10:09 Resp 18 10/02/22 10:09 BP 135/73 10/02/22 10:09 Pulse Ox 95 10/02/22 10:09 O2 Del Method 10/02/22 10:09 Weight 58.6 kg BMI result Body Mass Index 25.0 - Constitutional Present: no acute distress, mild distress - Routine HEENT Exam Head: Present: normal inspection Eye: Present: normal appearance ENT: Present: mucous membranes moist - Routine Neck Exam Present: full ROM - Routine Respiratory Exam Present: CTAB - Routine Cardiovascular Exam Cardiovascular: Present: RRR, S1, S2 - Routine Abdominal Exam Present: soft, tenderness. Absent: nontender - Routine Rectal Exam Patient deferred: digital exam - Routine Extremities Exam Present: nontender - Routine Back/Spine/Pelvis Exam Back/Spine: Present: full ROM - Routine Skin Exam Present: intact - Routine Neurological Exam Present: alert, oriented X3 - Routine Psychiatric Exam Present: normal affect Data - Labs CBC & Chem 7: 10/01/22 10:30 10/01/22 10:30 Assessment and Plan Patient Active problem list reviewed?: Yes (1) Pancreatic carcinoma Status: Acute Assessment and plan: This is a pleasant 70 year-old lady who presents with a couple of months history of abdominal pain that recently worsened. CT scan of the abdomen revealed: New mass in the head, neck and body the pancreas measuring 4.5 x 6.5 cm wor risome for neoplasm. New bilateral pulmonary nodules. Upper abdominal varices. Large esophageal hernia or intrathoracic stomach. Diverticulosis of the colon. Probable small uterine fibroid. Concern was for pancreatic cancer. Tumor marker Ca 19/9 is :4524. Biopsy was done on 11/12. Pathology revealed: Positive for atypical mucinous neoplasm. Moderately cellular specimen consisting of sheets of mucinous epithelium with cytologic atypia characterized by loss of clarity an irregularly shaped nuclei with Dr. chromatin in irregular nuclear membrane. Differential diagnosis includes an adenocarcinoma, mucinous cystic neoplasm and intraductal papillary mucinous neoplasm. I will proceed with a PET scan for further evaluation. This was done on 12/03, and revealed: Mild FDG activity in the pancreatic mass involving the head and adjacent pancreatic body corresponding to the recently biopsied malignancy. Multiple predominantly subcentimeter pulmonary nodules are present throughout the lungs likely represent metastases. Most of these are too small to be characterized on the PET images but the largest shows FDG activity. No additional abnormality suspicious for metastatic or other malignant lesions are noted. Chronic left posterior parietal cerebral infarction Large hiatal hernia.. My plan was to proceed with systemic chemotherapy. She has been started on gemcitabine and Abraxane based regimen. After she had 3 cycles, he had CT scan. Repeat imaging from 04/04: CT abdomen: No appreciable change in the mass in the body of the pancreas from October [address] chest: Multiple bilateral pulmonary nodules not appreciably changed from previous PET/CT scan November 2020. Enlarged heart. Large esophageal hernia or intrathoracic stomach. I discussed the CT scan results with her, told her that even though there has not been much decrease in size of the tumor things do appear stable. Stable disease is considered a response to treatment. Hopefully things will decrease with the continued chemotherapy. She has been tolerating it well. She complains of intermittent diarrhea, after chemotherapy. CT scan of the abdomen from April 04: No appreciable change in the mass in the body of the pancreas from October [address] chest from April 04: Multiple bilateral pulmonary nodules not appreciably changed from previous PET/CT scan November 2020. Enlarged heart. Large esophageal hernia or intrathoracic stomach. She had a CT scan of the chest and abdomen on 08/22 which revealed: Previously described large 7 mm pulmonary nodules are smaller. No new pulmonary nodules are seen. A hypodense mass in the body of the pancreas and encasement surrounding the SMA is stable. The tail of the pancreas is not visualized, similar to previous study. No abnormal chest, abdomen and pelvic lymphadenopathy. Stable calcified left fibroid and right paramidline hernia containing fat and bowel loops. Moderate constipation. She is tolerating the treatment well. CA 19-9 was down to 1878 in August, 5 in May, from 4855 in November. On 03/10: 6267. Most recently went up to 2550. l re-staged her with another CT scan. CT chest revealed:. Interval increase in size in some of the larger pulmonary nodules compared to August 2021 exam. I had shared the results with her and her son, at her last visit. Explained to them that it appears that the disease is getting refractory to the current regimen. I will need to switch her to a different protocol. Oxaliplatin with 5 FU and leucovorin, would be 1 option.. I went over the details of the treatment including the pros and the cons. Explained the procedure for the Port-A-Cath placement as well as the risks and benefits of it. She had a Port-A-Cath placed for that. She needed time to think and reflect. She recieved one cycle on 02/17. She did not tolerate it well. She had some nausea abdominal pain and diarrhea. She mentions some blood in the stools. That is going away however she is still feeling rather fatigued. She does not wish to continue that regimen. She and her son are concerned that there were few treatment delays with the Gemzar Abraxane and that could have accounted for the progression seen on the CT scan. They wanted to go back to that regimen since she was tolerating well. She was restarted on Gemzar and Abraxane based regimen. She has been tolerating it well. CA 19-9 from 06/11:4537. CT scan of the abdomen and pelvis from 06/24: Stable pancreatic mass. Stable adenopathy. CT of the chest from 06/24: Slight interval increase in size in bilateral pulmonary nodules. CA 19-9: 09/18:6009. 08/20:6165. Her disease had been holding quite stable, till recently. Lately she has been feeling more symptomatic, complains of increased epigastric and back pain, more tired and short of breath. . I feel the treatment is catching up with her. I discussed with her and her son. She does not wish to continue on the chemotherapy, at least the IV meds. Together we decided to hold off on the current regimen. She would not mind taking something by mouth. PLAN: I offered her oral Xeloda, as second-line therapy. She is pleased to try it. Will get authorization and then sent prescription to specialty pharmacy. She will then return for chemotherapy teaching and baseline labs and then get started. Will follow-up on the scans, after 3 months. I will follow-up on the tumor marker as well. She will return in 2 weeks for a follow-up. 30 minutes was spent coordinating her care including the tele visit, review of labs, review of imaging, ordering the medications and counseling the patient and her son. Thanks, CC: Dr. Lancaster. - Time Spent With Patient Time Spent with Patient (in minutes): 30
--- NOTE | 2022-10-23 16:24 | MHC.HEMONCMA ---
Pt had a telephone visit along with her son. Clinical summary reviewed and updated. Pt to return in 2 weeks.
--- NOTE | 2022-10-27 10:14 | MHC.HEMONC ---
New treatment with Capecitabine at home. This was discussed by Dr Cifuentes with pt and her son last week. Rx to be supplied by [facility]. Pt coming in for education next Wednesday. [employer] Accounting Clerk booked.
[2022-11-02 12:25] LABS: MANUAL DIFF FLAG NO
[2022-11-02 12:33] VITALS: BP 151/69; PULSE 76; RESP 18; TEMP 36.8; O2SAT 97
[2022-11-02 12:38] LABS: Basophils Percent Auto 0.3 % (0-2); Eosinophils Absolute Auto 0.2 X10*3/uL (0.0-0.4); Eosinophils Percent Auto 4.4 % (0-4); Hematocrit 35.8 % (37.0-47.0); Hemoglobin 11.1 g/dl (12.0-16.0); Imm Gran Abs Auto 0.02 X10*3/uL (0.00-0.03); Imm Gran Pct Auto 0.5 % (0.0-0.4); Lymphocytes Absolute Auto 0.7 X10*3/uL (1.2-4.9); Lymphocytes Percent Auto 17.7 % (20-40); Mean Corpuscular Hemoglobin 28.7 pg (27.0-33.0); Mean Corpuscular Volume 92.5 fL (80.0-98.0); Mean Platelet Volume 11.5 fL (9.4-12.3); Monocytes Absolute Auto 0.4 X10*3/uL (0.1-1.2); Monocytes Percent Auto 10.1 % (2-11); Neutrophils Absolute Auto 2.6 x10*3/uL (2.0-8.3); Platelet Count 111 X10*3/uL (160-400); Red Blood Count 3.87 X10*6/uL (4.20-5.50); Red Cell Distribution Width 13.1 % (11.0-16.0); White Blood Count 3.9 X10*3/uL (4.8-10.8)
[2022-11-02 12:54] LABS: Alanine Aminotransferase 13 U/L (0-31); Albumin Level 3.9 g/dL (3.5-5.0); Alkaline Phosphatase 58 U/L (39-117); Anion Gap 11 (12-20); Aspartate Amino Transferase 20 U/L (5-31); Bilirubin Total 0.3 mg/dL (0.0-1.0); Blood Urea Nitrogen 8 mg/dL (9-16); Carbon Dioxide 27 mmol/L (22-29); Chloride 104 mmol/L (96-108); Creatinine Clr Calc Pharmacy 56.6; Estimated Glomerular Filt Rate > 60; Glucose Random 182 mg/dL (60-115); Potassium 3.9 mmol/L (3.3-5.1); Sodium 138 mmol/L (135-145); Total Protein 6.4 g/dL (6.5-8.0)
--- NOTE | 2022-11-02 15:48 | MHC.HEMONC ---
Pt here for chemo teach Capecitabine oral chemo therapy. Son and daughter in law present for teach. Son Eliot translating-consent obtained. Chemo consent obtained. Length of treatment, how to take medication (30 minutes after meal, twice a day for 14 days with one week off) Instructed to drink plenty of fluids, reviewed side effects of medication and when to call clinic. All questions answered. Pt states she has 10/10 back and abdominal pain unrelieved with current pain control regime. Pt states she is very anxious. Dr Cifuentes notified of pain and anxiety. Plan to increase ms contin dose and order lorazepam for anxiety-pt and family agreeable to plan. Port accessed with blood return noted-labs drawn from port-specimen to lab. Pt scheduled for weekly lab draw for next 4 weeks-monthly lab draw afterwards. Calendar given
[2022-11-09 07:54] LABS: Carbohydrate Antigen 19-9 7407 U/mL (<34)
[2022-11-10 11:54] VITALS: BP 147/66; PULSE 88; RESP 12; TEMP 36.7; O2SAT 96; BMI 25.0
--- NOTE | 2022-11-10 12:01 | P.PNHO-ONC_ITS ---
Medical Summary - Medical Summary Date of Service: 11/10/22 Chief complaint: Follow-up for: pancreatic carcinoma. Medical Summary: DIAGNOSIS: Pancreatic Cancer. CURRENT THERAPY: Completed Gemcitabine Abraxane., cycle 14, day 15. on 01/15. She then received: One cycle of Liposomal irinotecan with 5 FU leucovorin on 02/17. She did not tolerate it. She was subsequently started on gemcitabine Abraxane. She received treatment 21 on 09/04. Started Capecitabine on 11/03 Interval History Interval history: This is a pleasant 71 year-old lady, here for a follow up visit. She started the Xeloda on 11/03. She denies major side effects however she has had some anxiety. Son gave her Benadryl before the Xeloda in that has helped. Yesterday she ate something and felt some discomfort. She complains of some pain on the left side of the neck since then. She has felt rather fatigued. She has noticed an occasional headache. No dizziness. Denies fever but has had chills. She denies dysphagia or odynophagia. She denies any chest pain or trouble breathing. Sometimes she complains of pain in her belly, around the periumbilical area. This radiates to the side and then to the back. It comes and goes. Sometimes she gets loose bowels. Her apetite is so so, her weight is stable. She is in good spirits. Rest of the review of systems is unremarkable. She has moved in with her son in [place]. Previous history: She was seen in the [facility] ER on Wednesday last week, for shortness of breath and belly pain. She had blood work urine and CT scans which were stable. She was seen in house. She presented to the hospital with complaints of abdominal pain. She complained of pain all over , on her abdomen, back, chest, legs. She reported that the abdominal pain had been going on for 2 months but worsened over the past 3 days. The pain is generalized abdominal pain, 8/10, intermittent, nonradiating, associated with nausea and vomiting. She also had occasional chills with no fever. She reported the pain to be just generalized discomfort. When asked about weight loss she reports about 1-2 lb of weight loss but not more. She also complained of years of shortness of breath with no change. She denied urinary symptoms and no lower extremity edema. Patient also complained of bloating, and low appetite. Her temp was 98.6?, pulse rate of 69, respiratory rate of 19, and oxygen saturation of 95% on room air. Labs: significant for PT of 27.7 INR of 2.3, sodium of 130, BUN of 11 with creatinine of 0.77, troponin 38 trended down to 37, BNP of 259, CT abdomen showed: New mass in the head neck and body of the pancreas measuring 4.5 x 6.5 cm worrisome for neoplasm. New bilateral pulmonary nodules. Upper abdominal varices. Large esophageal hernia, or intrathoracic stomach. Diverticulosis of the colon. Probable small uterine fibroid. Hospital course: The patient was evaluated for abdominal pain. I recommended, Biopsy of the pancreas. Discussed with IR who recommended holding both aspirin and warfarin for 3 days prior to procedure which was to be scheduled for next Wednesday. After discussing with the patient, she preferred to come back at the time of the biopsy. Her INR of 1.6 at the day of discharge. She was noted to have hyponatremia which seems to be chronic around 130-131. BNP was noted to be mildly elevated around 200 which was the baseline for her, looking back at her previous readings. Not in acute CHF exacerbation. les. Upper abdominal varices. Large esophageal hernia Sometimes she loses a sense of taste and smell. She had COVID about a year ago. Past medical history: Diabetes, COPD, CVA, hypertension. Review of Systems - Constitutional Reports no additional constitutional complaints, Reports fatigue, Reports weakness, Denies weight loss - Eyes Reports no additional eye complaints - ENT Reports no additional ear, nose, mouth, and throat complaints - Cardiovascular Reports no additional cardiovascular complaints - Respiratory Reports no additional respiratory complaints - Gastrointestinal Reports no additional gastrointestinal complaints Comments: Odynophagia. - Genitourinary Reports no additional female genitourinary complaints - Musculoskeletal Reports no additional musculoskeletal complaints - Integumentary/Breasts Skin/Breast: Reports no additional skin complaints - Neurologic Reports no additional neurologic complaints, Reports headache(s), Denies loss of vision, Reports weakness - Psychiatric Reports no additional psychiatric complaints - Endocrine Reports no additional endocrine complaints - Hematologic/Lymphatic Reports no additional hematologic/lymphatic complaints - Allergic/Immunologic Reports no additional allergic/immunologic complaints [facility] Medical History: Medical History (Last Reviewed 11/10/22 @ 11:57 by Betty Hansen CMA) Anxiety and depression Biventricular ICD (implantable cardioverter-defibrillator) in place Cardiomyopathy Congestive heart failure COPD (chronic obstructive pulmonary disease) Coronary artery disease Current use of anticoagulant therapy CVA (cerebral vascular accident) Diverticulitis Esophageal hernia GERD (gastroesophageal reflux disease) History of renal calculi HTN (hypertension) Hypercholesterolemia Hyponatremia Osteopenia Type 2 diabetes mellitus with hyperglycemia Umbilical hernia Functional capacity: uses cane/walker Patient : No Family History: Family History (Last Reviewed 11/10/22 @ 11:57 by Betty Hansen CMA) Father Medical history unknown Mother Diabetes Hypertension Surgical History: Surgical History (Last Reviewed 11/10/22 @ 11:57 by Betty Hansen CMA) History of hemicolectomy History of incisional hernia repair History of pacemaker Social History: Social History (Last Reviewed 11/10/22 @ 11:57 by Betty Hansen CMA) Living Situation History: Household Members: Family Housing: House Are you a primary personal care attendant to a significant other at home: No Do you presently have visiting nurse or other home services: No Alcohol History Details: Currently Displaying Signs/Symptoms of Alcohol Withdrawal: No Tobacco History: Patient Tobacco Use Status: Never used Tobacco e-Cigarette/Vaping Use: Never Used Second Hand Smoke Exposure: No Substance Use History: Use of substances other than those prescribed or required for medical reasons : No Domestic Abuse History: Have you been hit, kicked, punched, or otherwise hurt by someone within the past year? If so, by whom?: No Do you feel safe in your current relationship?: No Healthcare Practices: Synagogue Healthcare Practices: Caodaism/ Buddhist Advance Directives: Advance Directives Date on File: 02/17/22 Nutrition Assessment: Recently lost weight without trying: Yes How much weight loss: 24-33 pounds Eating poorly because of decreased appetite: Yes Nutrition screen score: 6 Nutrition Risks: Acute nausea or vomiting Patient : No : No Poor oral hygiene: No Occupation Assessmet: service: No Current occupational status: retired Oncology Screenings - ECOG Performance Status ECOG Performance Status: 1 Home Medications and Allergies Home Medications Medication Instructions Recorded Confirmed Type losartan 25 mg tablet 1 tab DAILY 07/15/22 11/10/22 History albuterol sulfate 90 mcg/actuation 2 puff inhalation Q4H PRN 10/06/22 11/10/22 History aerosol inhaler Respiratory Distress fluticasone furoate 200 1 inh inhalation DAILY 10/06/22 11/10/22 History mcg/actuation blister powder for inhalation (Arnuity Ellipta) Allergies Allergy/AdvReac Type Severity Reaction Status Date / Time No Known Allergies Allergy Verified 11/10/22 11:57 Exam Vital signs: Vital Signs Temp 98.1 F 11/10/22 11:54 Pulse 88 11/10/22 11:54 Resp 12 11/10/22 11:54 BP 147/66 H 11/10/22 11:54 Pulse Ox 96 11/10/22 11:54 O2 Del Method 11/10/22 11:54 Intake & Output 11/09/22 11/10/22 11/10/22 18:59 06:59 18:59 Other: Weight 58.7 kg [facility] Weight in Grams 22976 Weight 58.7 kg BMI result Body Mass Index 25.0 - Constitutional Present: no acute distress, mild distress - Routine HEENT Exam Head: Present: normal inspection Eye: Present: normal appearance ENT: Present: mucous membranes moist - Routine Neck Exam Present: full ROM - Routine Respiratory Exam Present: CTAB - Routine Cardiovascular Exam Cardiovascular: Present: RRR, S1, S2 - Routine Abdominal Exam Present: soft, tenderness. Absent: nontender - Routine Rectal Exam Patient deferred: digital exam - Routine Extremities Exam Present: nontender - Routine Back/Spine/Pelvis Exam Back/Spine: Present: full ROM - Routine Skin Exam Present: intact - Routine Neurological Exam Present: alert, oriented X3 - Routine Psychiatric Exam Present: normal affect Data - Labs CBC & Chem 7: 11/10/22 12:30 11/10/22 12:30 Assessment and Plan Patient Active problem list reviewed?: Yes (1) Pancreatic carcinoma Status: Acute Assessment and plan: This is a pleasant 70 year-old lady who presents with a couple of months history of abdominal pain that recently worsened. CT scan of the abdomen revealed: New mass in the head, neck and body the pancreas measuring 4.5 x 6.5 cm worrisome for neoplasm. New bilateral pulmonary nodules. Upper abdominal varices. Large esophageal hernia or intrathoracic stomach. Diverticulosis of the colon. Probable small uterine fibroid. Concern was for pancreatic cancer. Tumor marker Ca 19/9 is :4524. Biopsy was done on 11/12. Pathology revealed: Positive for atypical mucinous neoplasm. Moderately cellular specimen consisting of sheets of mucinous epithelium with cytologic atypia characterized by loss of clarity an irregularly shaped nuclei with Dr. chromatin in irregular nuclear membrane. Differential diagnosis includes an adenocarcinoma, mucinous cystic neoplasm and intraductal papillary mucinous neoplasm. I will proceed with a PET scan for further evaluation. This was done on 12/03, and revealed: Mild FDG activity in the pancreatic mass involving the head and adjacent pancreatic body corresponding to the recently biopsied malignancy. Multiple predominantly subcentimeter pulmonary nodules are present throughout the lungs likely represent metastases. Most of these are too small to be characterized on the PET images but the largest shows FDG activity. No additional abnormality suspicious for metastatic or other malignant lesions are noted. Chronic left posterior parietal cerebral infarction Large hiatal hernia.. My plan was to proceed with systemic chemotherapy. She has been started on gemcitabine and Abraxane based regimen. After she had 3 cycles, he had CT scan. Repeat imaging from 04/04: CT abdomen: No appreciable change in the mass in the body of the pancreas from October [address] chest: Multiple bilateral pulmonary nodules not appreciably changed from previous PET/CT scan November 2020. Enlarged heart. Large esophageal hernia or intrat horacic stomach. I discussed the CT scan results with her, told her that even though there has no t been much decrease in size of the tumor things do appear stable. Stable disease is considered a response to treatment. Hopefully things will decrease with the continued chemotherapy. She has been tolerating it well. She complains of intermittent diarrhea, after chemotherapy. CT scan of the abdomen from April 04: No appreciable change in the mass in the body of the pancreas from October [address] chest from April 04: Multiple bilateral pulmonary nodules not appreciably changed from previous PET/CT scan November 2020. Enlarged heart. Large esophageal hernia or intrathoracic stomach. She had a CT scan of the chest and abdomen on 08/22 which revealed: Previously described large 7 mm pulmonary nodules are smaller. No new pulmonary nodules are seen. A hypodense mass in the body of the pancreas and encasement surrounding the SMA is stable. The tail of the pancreas is not visualized, similar to previous study. No abnormal chest, abdomen and pelvic lymphadenopathy. Stable calcified left fibroid and right paramidline hernia containing fat and bowel loops. Moderate constipation. She is tolerating the treatment well. CA 19-9 was down to 1878 in August, 2055 in May, from 4855 in November. On 03/10: 6267. Most recently went up to 2550. l re-staged her with another CT scan. CT chest revealed:. Interval increase in size in some of the larger pulmonary nodules compared to O[place] tober 2020 exam. I had shared the results with her and her son, at her last visit. Explained to them that it appears that the disease is getting refractory to the current regimen. I will need to switch her to a different protocol. Oxaliplatin with 5 FU and leucovorin, would be 1 option.. I went over the details of the treatment including the pros and the cons. Explained the procedure for the Port-A-Cath placement as well as the risks and benefits of it. She had a Port-A-Cath placed for that. She needed time to think and reflect. She recieved one cycle on 02/17. She did not tolerate it well. She had some nausea abdominal pain and diarrhea. She mentions some blood in the stools. That is going away however she is still feeling rather fatigued. She does not wish to continue that regimen. She and her son are concerned that there were few treatment delays with the Gemzar Abraxane and that could have accounted for the progression seen on the CT scan. They wanted to go back to that regimen since she was tolerating well. She was restarted on Gemzar and Abraxane based regimen. She has been tolerating it well. CA 19-9 from 06/11:4537. CT scan of the abdomen and pelvis from 06/24: Stable pancreatic mass. Stable adenopathy. CT of the chest from 06/24: Slight interval increase in size in bilateral pulmonary nodules. CA 19-9: 09/18:6009. 08/20:6165. Her disease had been holding quite stable, till recently. She had felt more symptomatic, with complaints of increased epigastric and back pain,feeling more tired and short of breath. . I felt the treatment was catching up with her. I discussed with her and her son. She did not wish to continue on the chemotherapy, at least the IV meds. Together we decided to hold off on the current regimen. She would not mind taking oral chemotherapy. I offered her oral Xeloda, as second-line therapy. She wanted to try it. Baseline CA 19-9: 7407. She started it on 11/03. She initially felt some anxiety. Benadryl is helping. PLAN: Will send a prescription for Benadryl for her to take at home. Will follow-up on the scans, after 3 months. I will follow-up on the tumor marker as well. She will return in 3 weeks for a follow-up. The son will call in case the odynophagia persists. Thanks, CC: Dr. Lancaster. - Time Spent With Patient Time Spent with Patient (in minutes): 30
[2022-11-10 12:44] LABS: MANUAL DIFF FLAG NO
[2022-11-10 12:45] LABS: Basophils Percent Auto 0.3 % (0-2); Eosinophils Absolute Auto 0.2 X10*3/uL (0.0-0.4); Eosinophils Percent Auto 1.9 % (0-4); Hematocrit 35.4 % (37.0-47.0); Hemoglobin 11.6 g/dl (12.0-16.0); Imm Gran Abs Auto 0.01 X10*3/uL (0.00-0.03); Imm Gran Pct Auto 0.1 % (0.0-0.4); Lymphocytes Absolute Auto 1.2 X10*3/uL (1.2-4.9); Lymphocytes Percent Auto 15.7 % (20-40); Mean Corpuscular HGB Conc 32.8 g/dl (31.0-35.0); Mean Corpuscular Hemoglobin 29.3 pg (27.0-33.0); Mean Corpuscular Volume 89.4 fL (80.0-98.0); Mean Platelet Volume 10.4 fL (9.4-12.3); Monocytes Absolute Auto 0.6 X10*3/uL (0.1-1.2); Monocytes Percent Auto 7.7 % (2-11); Neutrophils Absolute Auto 5.8 x10*3/uL (2.0-8.3); Neutrophils Percent Auto 74.3 % (45-73); Platelet Count 142 X10*3/uL (160-400); Red Blood Count 3.96 X10*6/uL (4.20-5.50); White Blood Count 7.8 X10*3/uL (4.8-10.8)
--- NOTE | 2022-11-10 12:45 | MHC.HEMONC ---
Port accessed with blood return noted. Labs drawn from port-specimen to lab. Port flushed with heparin and de accessed. Next appointment for port flush scheduled. Pt states she is doing well with oral chemotherapy
[2022-11-10 13:06] LABS: Alanine Aminotransferase 16 U/L (0-31); Albumin Level 4.2 g/dL (3.5-5.0); Alkaline Phosphatase 59 U/L (39-117); Anion Gap 10 (12-20); Aspartate Amino Transferase 22 U/L (5-31); Blood Urea Nitrogen 23 mg/dL (9-16); Calcium 9.2 mg/dL (8.4-10.2); Carbon Dioxide 29 mmol/L (22-29); Chloride 100 mmol/L (96-108); Creatinine Clr Calc Pharmacy 51.7; Estimated Glomerular Filt Rate > 60; Glucose Random 104 mg/dL (60-115); Potassium 4.3 mmol/L (3.3-5.1); Sodium 135 mmol/L (135-145)
[2022-11-10 13:23] LABS: Bilirubin Total 0.5 mg/dL (0.0-1.0)
--- NOTE | 2022-11-10 15:54 | MHC.HEMONCMA ---
Pt was in for follow up. Clinical summary reviewed and updated, VSS. Labs were drawn. Pt to return in 3 weeks.
--- NOTE | 2022-11-12 10:52 | MHC.HEMONC ---
Received call from daughter in law Nevin stating pt continues with ball in throat and difficulty swallowing. Dr Cifuentes notified-plan for magic mouth was and mycelex shira. Daughter in law notified to pickling grader scripts at pharmacy and to call if prescribed treatment is not effective or pt feels worse. Verbalizes understanding
--- NOTE | 2022-11-18 11:29 | MHC.HEMONC ---
Addendum entered by Rufina Go RN 11/18/22 11:38: Follow up with Dr Cifuentes scheduled for 11/24/22 at 0720-son notified Original Note: Received call from sharmaine Mccabe-states pt has a swollen lip and is experiencing tingling and pain in finger tips and heels. Dr Clark notified-plan for pt to hold Capcitebine until follow up with Dr Cifuentes next week. Son also states pt is having respiratory distress despite using at home updraft treatments. Instructed to take pt to ED or call 911-verbalizes understanding to information given
[2022-11-20 12:04] LABS: MANUAL DIFF FLAG NO
[2022-11-20 12:08] LABS: Basophils Percent Auto 0.2 % (0-2); Eosinophils Absolute Auto 0.6 X10*3/uL (0.0-0.4); Eosinophils Percent Auto 9.8 % (0-4); Hematocrit 37.8 % (37.0-47.0); Hemoglobin 12.3 g/dl (12.0-16.0); Imm Gran Abs Auto 0.01 X10*3/uL (0.00-0.03); Imm Gran Pct Auto 0.2 % (0.0-0.4); Lymphocytes Absolute Auto 1.1 X10*3/uL (1.2-4.9); Lymphocytes Percent Auto 19.5 % (20-40); Mean Corpuscular HGB Conc 32.5 g/dl (31.0-35.0); Mean Corpuscular Hemoglobin 29.1 pg (27.0-33.0); Mean Corpuscular Volume 89.6 fL (80.0-98.0); Mean Platelet Volume 10.1 fL (9.4-12.3); Monocytes Absolute Auto 0.5 X10*3/uL (0.1-1.2); Monocytes Percent Auto 8.1 % (2-11); Neutrophils Absolute Auto 3.5 x10*3/uL (2.0-8.3); Neutrophils Percent Auto 62.2 % (45-73); Platelet Count 159 X10*3/uL (160-400); Red Blood Count 4.22 X10*6/uL (4.20-5.50); Red Cell Distribution Width 13.9 % (11.0-16.0); White Blood Count 5.7 X10*3/uL (4.8-10.8)
[2022-11-20 12:24] LABS: Alanine Aminotransferase 10 U/L (0-31); Albumin Level 4.4 g/dL (3.5-5.0); Alkaline Phosphatase 62 U/L (39-117); Anion Gap 11 (12-20); Aspartate Amino Transferase 18 U/L (5-31); Bilirubin Total 0.3 mg/dL (0.0-1.0); Blood Urea Nitrogen 11 mg/dL (9-16); Calcium 9.7 mg/dL (8.4-10.2); Carbon Dioxide 32 mmol/L (22-29); Chloride 98 mmol/L (96-108); Creatinine Clr Calc Pharmacy 42.2; Estimated Glomerular Filt Rate 56; Glucose Random 205 mg/dL (60-115); Potassium 4.2 mmol/L (3.3-5.1); Sodium 137 mmol/L (135-145); Total Protein 7.4 g/dL (6.5-8.0)
--- NOTE | 2022-11-20 13:11 | MHC.HEMONC ---
Pt here for lab draw. Blood drawn by learning and development administrator-specimen to lab. Lower lip edematous with white/harry areas noted along lower lip. Pt states are is painful. Dr Clark covering for Dr Cifuentes into view lip. Plan for pt to continue on Nystatin swish and swallow and use Nystatin on lower lip. Pt has follow up with Dr Cifuentes next week. Capcetabine on hold per Dr Clark until pt seen by Dr Cifuentes. Refill request for Oxycodone given to Dr Clark
--- NOTE | 2022-11-20 15:40 | HE.ONCSEC ---
I will be calling patient to reschedule 11/24/22 appt because [facility] booked it for 7:20 and we don't open till 8am .
--- NOTE | 2022-11-20 15:52 | HE.ONCSEC ---
I CALLED PATIENT TO RESCHEDULE APPT AND ALSO CONTACTED PATIENT'S SON SAADIA . BOTH ARE AWARE OF THE APPT CHANGE .
--- NOTE | 2022-11-24 11:52 | MHC.HEMONC ---
Refill request for oxycodone given to Dr Cifuentes as pt son had called in for it.
--- NOTE | 2022-11-26 10:59 | MHC.HEMONC ---
Received call from pt's daughter in law stating pt is having a tooth extraction tomorrow. Received clearance for procedure from Dr Cifuentes.Questioning if pt should still go to appointment- Instructed to attend appointment providing pt is afebrile. Daughter in law states pt is anxious about procedure. Confirmed follow up appointment with provider on Wednesday11/30/22. Verbalized understanding of information
[2022-11-30 08:57] VITALS: BP 139/63; PULSE 68; RESP 12; TEMP 36.3; O2SAT 96; BMI 23.9
--- NOTE | 2022-11-30 09:10 | MHC.HEMONC ---
Per Dr Cifuentes-labs every 2 weeks with monthly provider visit
[2022-11-30 09:40] LABS: MANUAL DIFF FLAG NO
[2022-11-30 09:46] LABS: Basophils Percent Auto 0.3 % (0-2); Eosinophils Absolute Auto 0.6 X10*3/uL (0.0-0.4); Eosinophils Percent Auto 9.4 % (0-4); Hematocrit 39.7 % (37.0-47.0); Hemoglobin 12.4 g/dl (12.0-16.0); Imm Gran Abs Auto 0.02 X10*3/uL (0.00-0.03); Imm Gran Pct Auto 0.3 % (0.0-0.4); Lymphocytes Absolute Auto 1.1 X10*3/uL (1.2-4.9); Mean Corpuscular HGB Conc 31.2 g/dl (31.0-35.0); Mean Corpuscular Hemoglobin 28.5 pg (27.0-33.0); Mean Corpuscular Volume 91.3 fL (80.0-98.0); Mean Platelet Volume 10.9 fL (9.4-12.3); Monocytes Absolute Auto 0.6 X10*3/uL (0.1-1.2); Monocytes Percent Auto 9.5 % (2-11); Neutrophils Absolute Auto 3.7 x10*3/uL (2.0-8.3); Neutrophils Percent Auto 62.5 % (45-73); Platelet Count 112 X10*3/uL (160-400); Red Blood Count 4.35 X10*6/uL (4.20-5.50); Red Cell Distribution Width 14.6 % (11.0-16.0); White Blood Count 5.9 X10*3/uL (4.8-10.8)
[2022-11-30 10:08] LABS: Alanine Aminotransferase 12 U/L (0-31); Albumin Level 4.2 g/dL (3.5-5.0); Alkaline Phosphatase 72 U/L (39-117); Anion Gap 13 (12-20); Aspartate Amino Transferase 20 U/L (5-31); Bilirubin Total 0.4 mg/dL (0.0-1.0); Blood Urea Nitrogen 22 mg/dL (9-16); Calcium 9.8 mg/dL (8.4-10.2); Carbon Dioxide 33 mmol/L (22-29); Chloride 98 mmol/L (96-108); Creatinine Clr Calc Pharmacy 42.4; Estimated Glomerular Filt Rate 59; Glucose Random 142 mg/dL (60-115); Potassium 5.1 mmol/L (3.3-5.1); Sodium 139 mmol/L (135-145)
--- NOTE | 2022-11-30 10:46 | PM.HEMONCPN ---
Medical Summary - Medical Summary Date of Service: 11/30/22 Chief complaint: Follow-up for: Pancreatic carcinoma. Medical Summary: DIAGNOSIS: Pancreatic Cancer. CURRENT THERAPY: Completed Gemcitabine Abraxane., cycle 14, day 15. on 01/15. She then received: One cycle of Liposomal irinotecan with 5 FU leucovorin on 02/17. She did not tolerate it. She was subsequently started on gemcitabine Abraxane. She received treatment 21 on 09/04. Started Capecitabine on 11/03. On cycle 2. Interval History Interval history: This is a pleasant 72 year-old lady, here for a follow up visit. She started the Xeloda on 11/03. She had mouth sores. These have recovered. She had a tooth extraction yesterday. She had to have stitches. Mouth is still painful. Her skin of the hands is dry and peeling. She has had nausea. The Zofran is helping that. She has had some anxiety. The other day she had a panic attack. She has felt rather fatigued. She has had an occasional headache. No dizziness. Denies fever but has had chills. She denies dysphagia or odynophagia. She denies any chest pain or trouble breathing. Sometimes she complains of pain in her belly, around the periumbilical area. This radiates to the side and then to the back. It comes and goes. Sometimes she gets loose bowels. Her apetite is so so, her weight is stable. She is in good spirits. Rest of the review of systems is unremarkable. She has moved in with her son in [place]. Previous history: She was seen in the [facility] ER on Wednesday last week, for shortness of breath and belly pain. She had blood work urine and CT scans which were stable. She was seen in house. She presented to the hospital with complaints of abdominal pain. She complained of pain all over , on her abdomen, back, chest, legs. She reported that the abdominal pain had been going on for 2 months but worsened over the past 3 days. The pain is generalized abdominal pain, 8/10, intermittent, nonradiating, associated with nausea and vomiting. She also had occasional chills with no fever. She reported the pain to be just generalized discomfort. When asked about weight loss she reports about 1-2 lb of weight loss but not more. She also complained of years of shortness of breath with no change. She denied urinary symptoms and no lower extremity edema. Patient also complained of bloating, and low appetite. Her temp was 98.6?, pulse rate of 69, respiratory rate of 19, and oxygen saturation of 95% on room air. Labs: significant for PT of 27.7 INR of 2.3, sodium of 130, BUN of 11 with creatinine of 0.77, troponin 38 trended down to 37, BNP of 259, CT abdomen showed: New mass in the head neck and body of the pancreas measuring 4.5 x 6.5 cm worrisome for neoplasm. New bilateral pulmonary nodules. Upper abdominal varices. Large esophageal hernia, or intrathoracic stomach. Diverticulosis of the colon. Probable small uterine fibroid. Hospital course: The patient was evaluated for abdominal pain. I recommended, Biopsy of the pancreas. Discussed with IR who recommended holding both aspirin and warfarin for 3 days prior to procedure which was to be scheduled for next Wednesday. After discussing with the patient, she preferred to come back at the time of the biopsy. Her INR of 1.6 at the day of discharge. She was noted to have hyponatremia which seems to be chronic around 130-131. BNP was noted to be mildly elevated around 200 which was the baseline for her, looking back at her previous readings. Not in acute CHF exacerbation. les. Upper abdominal varices. Large esophageal hernia Sometimes she loses a sense of taste and smell. She had COVID about a year ago. Past medical history: Diabetes, COPD, CVA, hypertension. Review of Systems - Constitutional Reports no additional constitutional complaints, Reports fatigue, Reports weakness, Reports weight loss - Eyes Reports no additional eye complaints - ENT Reports no additional ear, nose, mouth, and throat complaints - Cardiovascular Reports no additional cardiovascular complaints - Respiratory Reports no additional respiratory complaints - Gastrointestinal Reports no additional gastrointestinal complaints - Genitourinary Reports no additional female genitourinary complaints - Musculoskeletal Reports no additional musculoskeletal complaints - Integumentary/Breasts Skin/Breast: Reports no additional skin complaints - Neurologic Reports no additional neurologic complaints, Reports headache(s), Denies loss of vision, Reports weakness - Psychiatric Reports no additional psychiatric complaints - Endocrine Reports no additional endocrine complaints - Hematologic/Lymphatic Reports no additional hematologic/lymphatic complaints - Allergic/Immunologic Reports no additional allergic/immunologic complaints [facility] Medical History: Medical History (Last Reviewed 11/30/22 @ 09:00 by Betty Hansen CMA) Anxiety and depression Biventricular ICD (implantable cardioverter-defibrillator) in place Cardiomyopathy Congestive heart failure COPD (chronic obstructive pulmonary disease) Coronary artery disease Current use of anticoagulant therapy CVA (cerebral vascular accident) Diverticulitis Esophageal hernia GERD (gastroesophageal reflux disease) History of renal calculi HTN (hypertension) Hypercholesterolemia Hyponatremia Osteopenia Type 2 diabetes mellitus with hyperglycemia Umbilical hernia Functional capacity: uses cane/walker Patient : No Family History: Family History (Last Reviewed 11/30/22 @ 09:00 by Betty Hansen CMA) Father Medical history unknown Mother Diabetes Hypertension Surgical History: Surgical History (Last Reviewed 11/30/22 @ 09:00 by Betty Hansen CMA) History of hemicolectomy History of incisional hernia repair History of pacemaker Social History: Social History (Last Reviewed 11/30/22 @ 09:00 by Betty Hansen CMA) Living Situation History: Household Members: Family Housing: House Are you a primary primary care pediatrician to a significant other at home: No Do you presently have visiting nurse or other home services: No Alcohol History Details: Currently Displaying Signs/Symptoms of Alcohol Withdrawal: No Tobacco History: Patient Tobacco Use Status: Never used Tobacco e-Cigarette/Vaping Use: Never Used Second Hand Smoke Exposure: No Substance Use History: Use of substances other than those prescribed or required for medical reasons: No Domestic Abuse History: Have you been hit, kicked, punched, or otherwise hurt by someone within the past year? If so, by whom?: No Do you feel safe in your current relationship?: No Healthcare Practices: Islam Healthcare Practices: Yarsani/ Evangelical Advance Directives: Advance Directives Date on File: 02/17/22 Nutrition Assessment: Recently lost weight without trying: Yes How much weight loss: 24-33 pounds Eating poorly because of decreased appetite: Yes Nutrition screen score: 6 Nutrition Risks: Acute nausea or vomiting Patient : No : No Poor oral hygiene: No Occupation Assessmet: service: No Current occupational status: retired Oncology Screenings - ECOG Performance Status ECOG Performance Status: 1 Home Medications and Allergies Home Medications Medication Instructions Recorded Confirmed Type losartan 25 mg tablet 1 tab DAILY 07/15/22 11/30/22 History albuterol sulfate 90 mcg/actuation 2 puff inhalation Q4H PRN 10/06/22 11/30/22 History aerosol inhaler Respiratory Distress fluticasone furoate 200 1 inh inhalation DAILY 10/06/22 11/30/22 History mcg/actuation blister powder for inhalation (Arnuity Ellipta) Allergies Allergy/AdvReac Type Severity Reaction Status Date / Time No Known Allergies Allergy Verified 11/30/22 09:00 Exam Vital signs: Vital Signs Temp 97.4 F 11/30/22 08:57 Pulse 68 11/30/22 08:57 Resp 12 11/30/22 08:57 BP 139/63 11/30/22 08:57 Pulse Ox 96 11/30/22 08:57 O2 Del Method 11/30/22 08:57 Intake & Output 11/29/22 11/30/22 11/30/22 18:59 06:59 18:59 Other: Weight 56.1 kg [place] Weight in Grams [address]129 Weight 56.1 kg BMI result Body Mass Index 23.9 - Constitutional Present: no acute distress, mild distress - Routine HEENT Exam Head: Present: normal inspection Eye: Present: normal appearance ENT: Present: mucous membranes moist - Routine Neck Exam Present: full ROM - Routine Respiratory Exam Present: CTAB - Routine Cardiovascular Exam Cardiovascular: Present: RRR, S1, S2 - Routine Abdominal Exam Present: soft, tenderness. Absent: nontender - Routine Rectal Exam Patient deferred: digital exam - Routine Extremities Exam Present: nontender - Routine Back/Spine/Pelvis Exam Back/Spine: Present: full ROM - Routine Skin Exam Present: intact - Routine Neurological Exam Present: alert, oriented X3 - Routine Psychiatric Exam Present: normal affect Data - Labs CBC & Chem 7: 11/30/22 09:22 11/30/22 09:22 Assessment and Plan Patient Active problem list reviewed?: Yes (1) Pancreatic carcinoma Status: Acute Assessment and plan: This is a pleasant 70 year-old lady who presents with a couple of months history of abdominal pain that recently worsened. CT scan of the abdomen revealed: New mass in the head, neck and body the pancreas measuring 4.5 x 6.5 cm worrisome for neoplasm. New bilateral pulmonary nodules. Upper abdominal varices. Large esophageal hernia or intrathoracic stomach. Diverticulosis of the colon. Probable small uterine fibroid. Concern was for pancreatic cancer. Tumor marker Ca 19/9 is :4524. Biopsy was done on 11/12. Pathology revealed: Positive for atypical mucinous neoplasm. Moderately cellular specimen consisting of sheets of mucinous epithelium with cytologic atypia characterized by loss of clarity an irregularly shaped nuclei with Dr. chromatin in irregular nuclear membrane. Differential diagnosis includes an adenocarcinoma, mucinous cystic neoplasm and intraductal papillary mucinous neoplasm. I will proceed with a PET scan for further evaluation. This was done on 12/03, and revealed: Mild FDG activity in the pancreatic mass involving the head and adjacent pancreatic body corresponding to the recently biopsied malignancy. Multiple predominantly subcentimeter pulmonary nodules are present throughout the lungs likely represent metastases. Most of these are too small to be characterized on the PET images but the largest shows FDG activity. No additional abnormality suspicious for metastatic or other malignant lesions are noted. Chronic left posterior parietal cerebral infarction Large hiatal hernia.. My plan was to proceed with systemic chemotherapy. She has been started on gemcitabine and Abraxane based regimen. After she had 3 cycles, he had CT scan. Repeat imaging from 04/04: CT abdomen: No appreciable change in the mass in the body of the pancreas from October [address] chest: Multiple bilateral pulmonary nodules not appreciably changed from previous PET/CT scan November 2020. Enlarged heart. Large esophageal hernia or intrathoracic stomach. I discussed the CT scan results with her, told her that even though there has not been much decrease in size of the tumor things do appear stable. Stable disease is considered a response to treatment. Hopefully things will decrease with the continued chemotherapy. She has been tolerating it well. She complains of intermittent diarrhea, after chemotherapy. CT scan of the abdomen from April 04: No appreciable change in the mass in the body of the pancreas from October [address] chest from April 04: Multiple bilateral pulmonary nodules not appreciably changed from previous PET/CT scan November 2020. Enlarged heart. Large esophageal hernia or intrathoracic stomach. She had a CT scan of the chest and abdomen on 08/22 which revealed: Previously described large 7 mm pulmonary nodules are smaller. No new pulmonary nodules are seen. A hypodense mass in the body of the pancreas and encasement surrounding the SMA is stable. The tail of the pancreas is not visualized, similar to previous study. No abnormal chest, abdomen and pelvic lymphadenopathy. Stable calcified left fibroid and right paramidline hernia containing fat and bowel loops. Moderate constipation. She is tolerating the treatment well. CA 19-9 was down to 1878 in August, 2055 in May, from 4855 in November. On 03/10: 6267. Most recently went up to 2550. l re-staged her with another CT scan. CT chest revealed:. Interval increase in size in some of the larger pulmonary nodules compared to August 2021 exam. I had shared the results with her and her son, at her last visit. Explained to them that it appears that the disease is getting refractory to the current regimen. I will need to switch her to a different protocol. Oxaliplatin with 5 FU and leucovorin, would be 1 option.. I went over the details of the treatment including the pros and the cons. Explained the procedure for the Port-A-Cath placement as well as the risks and benefits of it. She had a Port-A-Cath placed for that. She needed time to think and reflect. She recieved one cycle on 02/17. She did not tolerate it well. She had some nausea abdominal pain and diarrhea. She mentions some blood in the stools. That is going away however she is still feeling rather fatigued. She does not wish to continue that regimen. She and her son are concerned that there were few treatment delays with the Gemzar Abraxane and that could have accounted for the progression seen on the CT scan. They wanted to go back to that regimen since she was tolerating well. She was restarted on Gemzar and Abraxane based regimen. She has been tolerating it well. CA 19-9 from 06/11:4537. CT scan of the abdomen and pelvis from 06/24: Stable pancreatic mass. Stable adenopathy. CT of the chest from 06/24: Slight interval increase in size in bilateral pulmonary nodules. CA 19-9: 09/18:6009. 08/20:6165. Her disease had been holding quite stable, till recently. She had felt more symptomatic, with complaints of increased epigastric and back pain,feeling more tired and short of breath. . I felt the treatment was catching up with her. I discussed with her and her son. She did not wish to continue on the chemotherapy, at least the IV meds. Together we decided to hold off on the current regimen. She would not mind taking oral chemotherapy. I offered her oral Xeloda, as second-line therapy. She wanted to try it. Baseline CA 19-9: 7407. She started it on 11/03. She has had nausea and hand-foot syndrome. PLAN: I will decrease the dose to 1000 mg b.i.d.. Hopefully that will be better tolerated. I advised her to take the Zofran on a scheduled basis Asked her to use Aquaphor, for the skin of the hands. I will follow-up on the tumor marker. Will follow-up on the scans,after 3 months. Will check her labs at home q2 weekly. She will return in 4 weeks for a follow-up. Thanks, CC: Dr. Lancaster. - Time Spent With Patient Time Spent with Patient (in minutes): 30
--- NOTE | 2022-11-30 13:52 | MHC.HEMONC ---
Per Marcie in phlebotomy-[facility] home draw does not travel to [place] for home draws. Dr Cifuentes and patient's family notified-plan for pt to come to clinic for lab draws per sharmaine Mccabe
--- NOTE | 2022-11-30 15:14 | MHC.HEMONC ---
Port accessed with blood return noted. Port flushed with heparin and de accessed. Next appointment scheduled-discharge packet given
--- NOTE | 2022-11-30 15:40 | MHC.HEMONCMA ---
Pt was in for follow up. Clinical summary reviewed and updated, VSS. Labs were drawn. Pt to return in 1 month.
--- NOTE | 2022-12-04 12:54 | MHC.HEMONC ---
Received call from sharmaine Eliot. States pt will be out of pain medication MS Contin 60mg po q 12 hours this weekend. States pt continues to take benadryl with Capcitabine-pt has dry mouth. Instructed to increase fluids or use troches that were previously ordered. States pt wants to continue to take benadryl because she is afraid of any potential side effects from Capcitabine. Dr Leyva covering for Dr Cifuentes notified of needed refill-states he will only given enough MS Contin until Dr Cifuentes returns next week.
--- NOTE | 2022-12-09 13:24 | MHC.HEMONC ---
Pt's dtr-in-law Nevinbenito Cardoza walked into clinic, said that pt had been in to product picker her MS Contin scrip, but they did not have the correct dosage scrip, had a scrip for MS Contin 30mg Q12H, but pt is meant to take MS Contin 60mg Q12H. Nurse asked Dr. Cifuentes, who sent new scrip for MS Contin 60mg Q12H to [facility] [address] Nurse called [facility], pharmacist Evelia replied that pt had a scrip filled for quantity of 10 tabs MS Contin 60mg Q12H written by Dr. Leyva on Wed, 12/05, thus she cannot have today's scrip filled until tomorrow morning. Nurse informed pt's dtr-in-law Nevin by phone, who was appreciative.
--- NOTE | 2023-01-04 14:01 | MHC.HEMONC ---
Triage call-Received call from daughter requesting refill on morphine 60mg-request given to dr Clark
--- NOTE | 2023-01-05 15:45 | MHC.HEMONC ---
Second request for refill on morphine 60mg given to Dr Clark who is covering for Dr Cifuentes
--- NOTE | 2023-01-08 14:37 | MHC.HEMONC ---
Dr Cifuentes asked to send rx for Capecitabine to [facility] per Blaise as Shapairo is back ordered.
--- NOTE | 2023-01-12 15:08 | MHC.HEMONC ---
[facility] sent Xeloda tablets to pt this morning
--- NOTE | 2023-01-15 10:32 | P.PNHO-ONC_ITS ---
Medical Summary - Medical Summary Date of Service: 01/15/23 Chief complaint: Follow-up for: Pancreatic carcinoma. Primary Care Provider: Anisha. Medical Summary: DIAGNOSIS: Pancreatic Cancer. CURRENT THERAPY: Completed Gemcitabine Abraxane., cycle 14, day 15. on 01/15. She then received: One cycle of Liposomal irinotecan with 5 FU leucovorin on 02/17. She did not tolerate it. She was subsequently started on gemcitabine Abraxane. She received treatment 21 on 09/04. Started Capecitabine on 11/03/22. On cycle 4. Interval History Interval history: This is a pleasant 72 year-old lady, here for a follow up visit. She started the Xeloda on 11/03/22. She started a new cycle on Wednesday. She mentions not feeling too well. She has felt fatigued. She has had an occasional headache. No dizziness. Denies fever but has had chills. She denies dysphagia or odynophagia. She complains of body aches. She denies any chest pain or trouble breathing. When she lays down, she complains of pain in her back, radiating to the front of the belly. She has had nausea. The Zofran is helping that. Sometimes she gets loose bowels. Her apetite is so so, her weight is stable. She has been taking the oxycodone every 4 hours, and the morphine every 8 hours. Her skin of the toes appears to be turning brown. Of her hands is dry and peeling. She has had some anxiety. She gets panic attacks. She is in good spirits. Rest of the review of systems is unremarkable. She has moved in with her son in [place]. Previous history: She was seen in the [facility] ER on Wednesday last week, for shortness of breath and belly pain. She had blood work urine and CT scans which were stable. She was seen in house. She presented to the hospital with complaints of abdominal pain. She complained of pain all over , on her abdomen, back, chest, legs. She reported that the abdominal pain had been going on for 2 months but worsened over the past 3 days. The pain is generalized abdominal pain, 8/10, intermittent, nonradiating, associated with nausea and vomiting. She also had occasional chills with no fever. She reported the pain to be just generalized discomfort. When asked about weight loss she reports about 1-2 lb of weight loss but not more. She also complained of years of shortness of breath with no change. She denied urinary symptoms and no lower extremity edema. Patient also complained of bloating, and low appetite. Her temp was 98.6?, pulse rate of 69, respiratory rate of 19, and oxygen saturation of 95% on room air. Labs: significant for PT of 27.7 INR of 2.3, sodium of 130, BUN of 11 with creatinine of 0.77, troponin 38 trended down to 37, BNP of 259, CT abdomen showed: New mass in the head neck and body of the pancreas measuring 4.5 x 6.5 cm worrisome for neoplasm. New bilateral pulmonary nodules. Upper abdominal va rices. Large esophageal hernia, or intrathoracic stomach. Diverticulosis of the colon. Probable small uterine fibroid. Hospital course: The patient was evaluated for abdominal pain. I recommended, Biopsy of the pancreas. Discussed with IR who recommended holding both aspirin and warfarin for 3 days prior to procedure which was to be scheduled for next Wednesday. After discussing with the patient, she preferred to come back at the time of the biopsy. Her INR of 1.6 at the day of discharge. She was noted to have hyponatremia which seems to be chronic around 130-131. BNP was noted to be mildly elevated around 200 which was the baseline for her, looking back at her previous readings. Not in acute CHF exacerbation. les. Upper abdominal varices. Large esophageal hernia Sometimes she loses a sense of taste and smell. She had COVID about a year ago. Past medical history: Diabetes, COPD, CVA, hypertension. Review of Systems - Constitutional Reports system reviewed and no additional complaints, except as documented, Reports anorexia, Reports fatigue, Reports lack of energy, Reports malaise, Reports weakness, Denies fever(s), Denies weight loss - Eyes Reports system reviewed and no additional complaints, except as documented - ENT Reports system reviewed and no additional complaints, except as documented - Cardiovascular Reports system reviewed and no additional complaints, except as documented - Respiratory Reports no additional respiratory complaints - Gastrointestinal Reports system reviewed and no additional complaints, except as documented - Genitourinary Reports no additional female genitourinary complaints - Musculoskeletal Reports system reviewed and no additional complaints, except as documented - Integumentary/Breasts Skin/Breast: Reports no additional skin complaints - Neurologic Reports system reviewed and no additional complaints, except as documented, Reports headache(s), Reports weakness, Denies loss of vision - Psychiatric Reports system reviewed and no additional complaints, except as documented - Endocrine Reports no additional endocrine complaints - Hematologic/Lymphatic Reports system reviewed and no additional complaints, except as documented - Allergic/Immunologic Reports system reviewed and no additional complaints, except as documented [facility] Medical History: Medical History (Last Reviewed 01/15/23 @ 11:00 by Tatiana Harrell) Anxiety and depression Biventricular ICD (implantable cardioverter-defibrillator) in place Cardiomyopathy Congestive heart failure COPD (chronic obstructive pulmonary disease) Coronary artery disease Current use of anticoagulant therapy CVA (cerebral vascular accident) Diverticulitis Esophageal hernia GERD (gastroesophageal reflux disease) History of renal calculi HTN (hypertension) Hypercholesterolemia Hyponatremia Osteopenia Type 2 diabetes mellitus with hyperglycemia Umbilical hernia Functional capacity: uses cane/walker Patient : No Family History: Family History (Last Reviewed 01/15/23 @ 11:00 by Tatiana Harrell) Father Medical history unknown Mother Diabetes Hypertension Surgical History: Surgical History (Last Reviewed 01/15/23 @ 11:00 by Tatiana Harrell) History of hemicolectomy History of incisional hernia repair History of pacemaker Social History: Social History (Last Reviewed 01/15/23 @ 11:00 by Tatiana Harrell) Living Situation History: Household Members: Family Housing: House Are you a primary critical care educator to a significant other at home: No Do you presently have visiting nurse or other home services: No Tobacco History: Patient Tobacco Use Status: Never used Tobacco e-Cigarette/Vaping Use: Never Used Second Hand Smoke Exposure: No Advance Directives: Advance Directives Date on File: 02/17/22 Occupation Assessmet: service: No Current occupational status: retired Oncology Screenings - ECOG Performance Status ECOG Performance Status: 1 Home Medications and Allergies Home Medications Medication Instructions Recorded Confirmed Type albuterol sulfate 90 mcg/actuation 2 puff inhalation Q4H PRN 10/06/22 01/15/23 History aerosol inhaler Respiratory Distress fluticasone furoate 200 1 inh inhalation DAILY 10/06/22 01/15/23 History mcg/actuation blister powder for inhalation (Arnuity Ellipta) furosemide 40 mg tablet 40 mg PO Q OTHER DAY 12/21/22 01/15/23 History losartan 25 mg tablet 25 mg PO DAILY 12/21/22 01/15/23 History Allergies Allergy/AdvReac Type Severity Reaction Status Date / Time No Known Allergies Allergy Verified 01/05/23 11:30 Exam Vital signs: Vital Signs Temp 97.4 F 11/30/22 08:57 Pulse 68 11/30/22 08:57 Resp 12 11/30/22 08:57 BP 139/63 11/30/22 08:57 Pulse Ox 96 11/30/22 08:57 O2 Del Method 11/30/22 08:57 Weight 56.1 kg BMI result Body Mass Index 23.9 - Constitutional Present: no acute distress, mild distress - Routine HEENT Exam Head: Present: normal inspection Eye: Present: normal appearance ENT: Present: mucous membranes moist - Routine Neck Exam Present: full ROM - Routine Respiratory Exam Present: CTAB - Routine Cardiovascular Exam Cardiovascular: Present: RRR, S1, S2 - Routine Abdominal Exam Present: soft, tenderness. Absent: nontender - Routine Rectal Exam Patient deferred: digital exam - Routine Extremities Exam Present: nontender - Routine Back/Spine/Pelvis Exam Back/Spine: Present: full ROM - Routine Skin Exam Present: intact - Routine Neurological Exam Present: alert, oriented X3 - Routine Psychiatric Exam Present: normal affect Data - Labs CBC & Chem 7: 01/15/23 10:55 01/15/23 10:55 Assessment and Plan Patient Active problem list reviewed?: Yes (1) Pancreatic carcinoma Status: Acute Assessment and plan: This is a pleasant 70 year-old lady who presents with a couple of months history of abdominal pain that recently worsened. CT scan of the abdomen revealed: New mass in the head, neck and body the pancreas measuring 4.5 x 6.5 cm worrisome for neoplasm. New bilateral pulmonary nodules. Upper abdominal varices. Large esophageal hernia or intrathoracic stomach. Diverticulosis of the colon. Probable small uterine fibroid. Concern was for pancreatic cancer. Tumor marker Ca 19/9 is :4524. Biopsy was done on 11/12. Pathology revealed: Positive for atypical mucinous neoplasm. Moderately cellular specimen consisting of sheets of mucinous epithelium with cytologic atypia characterized by loss of clarity an irregularly shaped nuclei with Dr. chromatin in irregular nuclear membrane. Differential diagnosis includes an adenocarcinoma, mucinous cystic neoplasm and intraductal papillary mucinous neoplasm. I will proceed with a PET scan for further evaluation. This was done on 12/03, and revealed: Mild FDG activity in the pancreatic mass involving the head and adjacent pancreatic body corresponding to the recently biopsied malignancy. Multiple predominantly subcentimeter pulmonary nodules are present throughout the lungs likely represent metastases. Most of these are too small to be characterized on the PET images but the largest shows FDG activity. No additional abnormality suspicious for metastatic or other malignant lesions are noted. Chronic left posterior parietal cerebral infarction Large hiatal hernia.. My plan was to proceed with systemic chemotherapy. She has been started on gemcitabine and Abraxane based regimen. After she had 3 cycles, he had CT scan. Repeat imaging from 04/04: CT abdomen: No appreciable change in the mass in the body of the pancreas from October [address] chest: Multiple bilateral pulmonary nodules not appreciably changed from previous PET/CT scan November 2020. Enlarged heart. Large esophageal hernia or intrathoracic stomach. I discussed the CT scan results with her, told her that even though there has not been much decrease in size of the tumor things do appear stable. Stable disease is considered a response to treatment. Hopefully things will decrease with the continued chemotherapy. She has been tolerating it well. She complains of intermittent diarrhea, after chemotherapy. CT scan of the abdomen from April 04: No appreciable change in the mass in the body of the pancreas from October [address] chest from April 04: Multiple bilateral pulmonary nodules not appreciably changed from previous PET/CT scan November 2020. Enlarged heart. Large esophageal hernia or intrathorac ic stomach. She had a CT scan of the chest and abdomen on 08/22 which revealed: Previously described large 7 mm pulmonary nodules are smaller. No new pulmonary nodules are seen. A hypodense mass in the body of the pancreas and encasement surrounding the SMA is stable. The tail of the pancreas is not visualized, similar to previous study. No abnormal chest, abdomen and pelvic lymphadenopathy. Stable calcified left fibroid and right paramidline hernia containing fat and bowel loops. Moderate constipation. She is tolerating the treatment well. CA 19-9 was down to 1878 in August, 5 in May, from 4855 in November. On 03/10: 6267. Most recently went up to 2550. l re-staged her with another CT scan. CT chest revealed:. Interval increase in size in some of the larger pulmonary nodules compared to August 2021 exam. I had shared the results with her and her son, at her last visit. Explained to them that it appears that the disease is getting refractory to the current regimen. I will need to switch her to a different protocol. Oxaliplatin with 5 FU and leucovorin, would be 1 option.. I went over the details of the treatment including the pros and the cons. Explained the procedure for the Port-A-Cath placement as well as the risks and benefits of it. She had a Port-A-Cath placed for that. She needed time to think and reflect. She recieved one cycle on 02/17. She did not tolerate it well. She had some nausea abdominal pain and diarrhea. She mentions some blood in the stools. That is going away however she is still feeling rather fatigued. She does not wish to continue that regimen. She and her son are concerned that there were few treatment delays with the Gemzar Abraxane and that could have accounted for the progression seen on the CT scan. They wanted to go back to that regimen since she was tolerating well. She was restarted on Gemzar and Abraxane based regimen. She has been tolerating it well. CA 19-9 from 06/11:4537. CT scan of the abdomen and pelvis from 06/24: Stable pancreatic mass. Stable adenopathy. CT of the chest from 06/24: Slight interval increase in size in bilateral pulmonary nodules. CA 19-9: 09/18:6009. 08/20:6165. Her disease had been holding quite stable, till recently. She had felt more symptomatic, with complaints of increased epigastric and back pain,feeling more tired and short of breath. . I felt the treatment was catching up with her. I discussed with her and her son. She did not wish to continue on the chemotherapy, at least the IV meds. Together we decided to hold off on the current regimen. She would not mind taking oral chemotherapy. I offered her oral Xeloda, as second-line therapy. She wanted to try it. Baseline CA 19-9: 7407. She started it on 11/03/22. She had nausea and hand-foot syndrome. I advised her to take the Zofran on a scheduled basis Asked her to use Aquaphor, for the skin of the hands. I decreased the dose to 1000 mg b.i.d.. It does appear to be better tolerated. Ca 19/9: 9273. PLAN: The plan is to continue her on the current regimen. I will follow-up on the tumor marker. Will follow-up on the scans, next month. She will return in 4 weeks for a follow-up. Thanks, CC: Dr. Lancaster. - Time Spent With Patient Time Spent with Patient (in minutes): 26
[2023-01-15 10:58] VITALS: BP 139/70; PULSE 83; TEMP 37; O2SAT 98; BMI 24.4
[2023-01-15 11:02] LABS: MANUAL DIFF FLAG NO
[2023-01-15 11:06] LABS: Eosinophils Absolute Auto 0.1 X10*3/uL (0.0-0.4); Eosinophils Percent Auto 2.3 % (0-4); Hematocrit 33.6 % (37.0-47.0); Imm Gran Abs Auto 0.01 X10*3/uL (0.00-0.03); Imm Gran Pct Auto 0.3 % (0.0-0.4); Lymphocytes Absolute Auto 0.7 X10*3/uL (1.2-4.9); Lymphocytes Percent Auto 16.5 % (20-40); Mean Corpuscular HGB Conc 32.7 g/dl (31.0-35.0); Mean Corpuscular Hemoglobin 30.1 pg (27.0-33.0); Mean Corpuscular Volume 92.1 fL (80.0-98.0); Monocytes Absolute Auto 0.3 X10*3/uL (0.1-1.2); Monocytes Percent Auto 8.4 % (2-11); Neutrophils Absolute Auto 2.9 x10*3/uL (2.0-8.3); Neutrophils Percent Auto 72.5 % (45-73); Platelet Count 128 X10*3/uL (160-400); Red Blood Count 3.65 X10*6/uL (4.20-5.50); Red Cell Distribution Width 18.6 % (11.0-16.0); White Blood Count 3.9 X10*3/uL (4.8-10.8)
[2023-01-15 11:26] LABS: Alanine Aminotransferase 11 U/L (0-31); Albumin Level 3.8 g/dL (3.5-5.0); Alkaline Phosphatase 57 U/L (39-117); Anion Gap 10 (12-20); Aspartate Amino Transferase 21 U/L (5-31); Bilirubin Total 0.5 mg/dL (0.0-1.0); Blood Urea Nitrogen 14 mg/dL (9-16); Calcium 8.7 mg/dL (8.4-10.2); Carbon Dioxide 27 mmol/L (22-29); Chloride 106 mmol/L (96-108); Creatinine Clr Calc Pharmacy 50.3; Estimated Glomerular Filt Rate > 60; Glucose Random 165 mg/dL (60-115); Potassium 3.9 mmol/L (3.3-5.1); Sodium 139 mmol/L (135-145); Total Protein 6.2 g/dL (6.5-8.0)
--- NOTE | 2023-01-15 11:41 | MHC.HEMONCMA ---
Addendum entered by Tatiana Harrell 01/15/23 13:46: CT Chest/Abd/Pelvis ordered. Original Note: Patient seen today for followup pancreatic mass, VSS, labs,injection today,1 month follow up.
--- NOTE | 2023-01-15 14:17 | MHC.HEMONCMA ---
I PUT CT ORDER FOR CHEST W/ IV CONTRAST AND CT ABDOMEN PELVIS W/ CON IN OF .
--- NOTE | 2023-01-15 15:53 | MHC.HEMONC ---
Pt here for lab draw and follow up with Dr Cifuentes. Port accessed with blood return noted. Labs drawn from port-specimen to lab. Port flushed with heparin and de accessed. Next appointment scheduled. Dr Cifuentes into see pt.Discharge packet given with next appointment scheduled. Okay to have lab draws q month with MD follow up per Dr Cifuentes. CT chest,abdomen/pelvis order printed and given to Tatiana to facilitate.
[2023-01-18 14:29] LABS: Carbohydrate Antigen 19-9 9273 U/mL (<34)
--- NOTE | 2023-01-20 11:10 | MHC.HEMONC ---
Marinol approved through [employer]. Pt's son informed that [facility] has been notified and they are ordering drug.
--- NOTE | 2023-01-21 10:46 | MHC.HEMONC ---
Triage call- Pt daughter called reporting eyes sticky, some drainage,Itching, eye drops sting and make eyes blurry and eyes pink. Daughter will call PCP.
--- NOTE | 2023-01-26 14:52 | MHC.HEMONCMA ---
[facility] [id number] from [facility] called and patient needs updated labs and would like to have done tomorrow after her mammo, spoke with Dr. Cifuentes and she will order them. Had Hanane call and inform them in english.
--- NOTE | 2023-02-12 16:22 | MHC.HEMONC ---
Pt's son, Eliot, called, requested new scrip for oxycodone [address] Cifuentes sent new scrip to [facility] on [address] Nurse checked w/ pharmacist, scrip ready for greens picker. Nurse notified Eliot by phone, no answer, left VM.
--- NOTE | 2023-02-18 13:50 | MHC.HEMONC ---
Triage call-received call from [facility]- [facility] stating pt is admitted at [facility].
--- NOTE | 2023-02-18 14:02 | MHC.HEMONC ---
Nurse took t/c from EQUITY TRADER Alcira Pantoja of palliative care at [facility], reporting that pt was admitted to [facility] on 02/17/23 for SOB. She is calling now to ask for more details about pt's current plan of care. Nurse reviewed Dr. Cifuentes's most recent note from 01/15/23, informed RICHARD Eli that pt is currently being treated w/ oral capecitabine at home. Dr. Cifuentes took the phone and spoke w/ RICHARD Eli. This nurse faxed a copy of Dr. Cifuentes's note from 01/15/23 to [phone], received fax receipt confirmation.
--- NOTE | 2023-02-19 09:46 | MHC.HEMONC ---
Pt currently a patient at [facility]- today's appointment cancelled
[2023-03-04 15:21] VITALS: BP 128/60; PULSE 80; O2SAT 98; BMI 23.9
--- NOTE | 2023-03-04 15:21 | P.PNHO-ONC_ITS ---
Medical Summary - Medical Summary Date of Service: 03/04/23 Chief complaint: Follow-up for: Pancreatic carcinoma. Primary Care Provider: Malika Mayer MD Medical Summary: DIAGNOSIS: Pancreatic Cancer. CURRENT THERAPY: Completed Gemcitabine Abraxane., cycle 14, day 15. on 01/15. She then received: One cycle of Liposomal irinotecan with 5 FU leucovorin on 02/17. She did not tolerate it. She was subsequently started on gemcitabine Abraxane. She received treatment 21 on 09/04. Started Capecitabine on 11/03/22. On cycle 5. Interval History Interval history: This is a pleasant 72 year-old lady, here for a follow up visit. he was admitted to [facility] for a couple days for shortness of breath dizziness and frequent falls. She started the Xeloda on 11/03/22. She will complete this cycle on wednesday. She mentions not feeling too well. She is feeling fatigued. The skin over her feet is peeling. She has had an occasional headache. No dizziness. Denies fever but has had chills. She denies dysphagia or odynophagia. She complains of body aches. She denies any chest pain or trouble breathing. She complains of pain in her back, radiating to the front of the belly, upon laying down. She has had nausea. The Zofran helps that. Sometimes she gets loose bowels. Her apetite is so so, her weight is stable. She has been taking the oxycodone every 4 hours, and the morphine every 8 hours. Her skin of the toes appears to be turning brown. Of her hands is dry and peeling. She has had some anxiety. She gets panic attacks. She is in good spirits. Rest of the review of systems is unremarkable. She has moved in with her son in [place]. Previous history: She was seen in the [facility] ER on Wednesday last month, for shortness of breath and belly pain. She had blood work urine and CT scans which were stable. She was seen in house. She presented to the hospital with complaints of abdominal pain. She complained of pain all over , on her abdomen, back, chest, legs. She reported that the abdominal pain had been going on for 2 months but worsened over the past 3 days. The pain is generalized abdominal pain, 8/10, intermittent, nonradiating, associated with nausea and vomiting. She also had occasional chills with no fever. She reported the pain to be just generalized discomfort. When asked about weight loss she reports about 1-2 lb of weight loss but not more. She also complained of years of shortness of breath with no change. She denied urinary symptoms and no lower extremity edema. Patient also complained of bloating, and low appetite. Her temp was 98.6?, pulse rate of 69, respiratory rate of 19, and oxygen saturation of 95% on room air. Labs: significant for PT of 27.7 INR of 2.3, sodium of 130, BUN of 11 with creatinine of 0.77, troponin 38 trended down to 37, BNP of 259, CT abdomen showed: New mass in the head neck and body of the pancreas measuring 4.5 x 6.5 cm worrisome for neoplasm. New bilateral pulmonary nodules. Upper abdominal varices. Large esophageal hernia, or intrathoracic stomach. Diverticulosis of the colon. Probable small uterine fibroid. Hospital course: The patient was evaluated for abdominal pain. I recommended, Biopsy of the pancreas. Discussed with IR who recommended holding both aspirin and warfarin for 3 days prior to procedure which was to be scheduled for next Wednesday. After discussing with the patient, she preferred to come back at the time of the biopsy. Her INR of 1.6 at the day of discharge. She was noted to have hyponatremia which seems to be chronic around 130-131. BNP was noted to be mildly elevated around 200 which was the baseline for her, looking back at her previous readings. Not in acute CHF exacerbation. les. Upper abdominal varices. Large esophageal hernia Sometimes she loses a sense of taste and smell. She had COVID about a year ago. Past medical history: Diabetes, COPD, CVA, hypertension. Review of Systems - Constitutional Reports no additional constitutional complaints, Reports anorexia, Reports body aches, Reports lack of energy, Reports malaise, Reports weight loss - Eyes Reports no additional eye complaints - ENT Reports no additional ear, nose, mouth, and throat complaints - Cardiovascular Reports no additional cardiovascular complaints - Respiratory Reports no additional respiratory complaints - Gastrointestinal Reports no additional gastrointestinal complaints - Genitourinary Reports no additional female genitourinary complaints - Musculoskeletal Reports no additional musculoskeletal complaints - Integumentary/Breasts Skin/Breast: Reports no additional skin complaints - Neurologic Reports no additional neurologic complaints, Reports headache(s), Denies loss of vision, Reports weakness - Psychiatric Reports no additional psychiatric complaints - Endocrine Reports no additional endocrine complaints - Hematologic/Lymphatic Reports no additional hematologic/lymphatic complaints - Allergic/Immunologic Reports no additional allergic/immunologic complaints [facility] Medical History: Medical History (Last Reviewed 03/04/23 @ 15:23 by Tyler Gillespie) Anxiety and depression Biventricular ICD (implantable cardioverter-defibrillator) in place Cardiomyopathy Congestive heart failure COPD (chronic obstructive pulmonary disease) Coronary artery disease Current use of anticoagulant therapy CVA (cerebral vascular accident) Diverticulitis Esophageal hernia GERD (gastroesophageal reflux disease) History of renal calculi HTN (hypertension) Hypercholesterolemia Hyponatremia Osteopenia Type 2 diabetes mellitus with hyperglycemia Umbilical hernia Functional capacity: uses cane/walker Patient : No Family History: Family History (Last Reviewed 03/04/23 @ 15:23 by Tyler Gillespie) Father Medical history unknown Mother Diabetes Hypertension Surgical History: Surgical History (Last Reviewed 03/04/23 @ 15:23 by Tyler Gillespie) History of hemicolectomy History of incisional hernia repair History of pacemaker Social History: Social History (Last Reviewed 03/04/23 @ 15:23 by Tyler Gillespie) Living Situation History: Household Members: Family Housing: House Are you a primary hearing healthcare practitioner to a significant other at home: No Do you presently have visiting nurse or other home services: No Alcohol History Details: Currently Displaying Signs/Symptoms of Alcohol Withdrawal: No Tobacco History: Patient Tobacco Use Status: Never used Tobacco e-Cigarette/Vaping Use: Never Used Second Hand Smoke Exposure: No Substance Use History: Use of substances other than those prescribed or required for medical reasons : No Domestic Abuse History: Have you been hit, kicked, punched, or otherwise hurt by someone within the past year? If so, by whom?: No Do you feel safe in your current relationship?: No Healthcare Practices: Latter Day Healthcare Practices: Oriental Orthodox/ Spiritism Advance Directives: Advance Directives Date on File: 02/17/22 Nutrition Assessment: Recently lost weight without trying: Yes How much weight loss: 24-33 pounds Eating poorly because of decreased appetite: Yes Nutrition screen score: 6 Nutrition Risks: Acute nausea or vomiting Patient : No : No Poor oral hygiene: No Occupation Assessmet: service: No Current occupational status: retired Oncology Screenings - ECOG Performance Status ECOG Performance Status: 1 Home Medications and Allergies Home Medications Medication Instructions Recorded Confirmed Type albuterol sulfate 90 mcg/actuation 2 puff inhalation Q4H PRN 10/06/22 03/04/23 History aerosol inhaler Respiratory Distress fluticasone furoate 200 1 inh inhalation DAILY 10/06/22 03/04/23 History mcg/actuation blister powder for inhalation (Arnuity Ellipta) furosemide 40 mg tablet 40 mg PO Q OTHER DAY 12/21/22 03/04/23 History losartan 25 mg tablet 25 mg PO DAILY 12/21/22 03/04/23 History Allergies Allergy/AdvReac Type Severity Reaction Status Date / Time No Known Allergies Allergy Verified 03/04/23 15:24 Exam Vital signs: Vital Signs Temp 98.6 F 01/15/23 10:58 Pulse 83 01/15/23 10:58 Resp 12 11/30/22 08:57 BP 139/70 01/15/23 10:58 Pulse Ox 98 01/15/23 10:58 O2 Del Method Room Air 01/15/23 10:58 Weight 57.3 kg BMI result Body Mass Index 24.4 - Constitutional Present: no acute distress, mild distress - Routine HEENT Exam Head: Present: normal inspection Eye: Present: normal appearance ENT: Present: mucous membranes moist - Routine Neck Exam Present: full ROM - Routine Respiratory Exam Present: CTAB - Routine Cardiovascular Exam Cardiovascular: Present: RRR, S1, S2 - Routine Abdominal Exam Present: soft, tenderness. Absent: nontender - Routine Rectal Exam Patient deferred: digital exam - Routine Extremities Exam Present: nontender - Routine Back/Spine/Pelvis Exam Back/Spine: Present: full ROM - Routine Skin Exam Present: intact - Routine Neurological Exam Present: alert, oriented X3 - Routine Psychiatric Exam Present: normal affect Data - Labs CBC & Chem 7: 03/04/23 15:45 03/04/23 15:45 Assessment and Plan Patient Active problem list reviewed?: Yes (1) Pancreatic carcinoma Status: Acute Assessment and plan: This is a pleasant 70 year-old lady who presents with a couple of months history of abdominal pain that recently worsened. CT scan of the abdomen revealed: New mass in the head, neck and body the pancreas measuring 4.5 x 6.5 cm worrisome for neoplasm. New bilateral pulmonary nodules. Upper abdominal varices. Large esophageal hernia or intrathoracic stomach. Diverticulosis of the colon. Probable small uterine fibroid. Concern was for pancreatic cancer. Tumor marker Ca 19/9 is :4524. Biopsy was done on 11/12. Pathology revealed: Positive for atypical mucinous neoplasm. Moderately cellular specimen consisting of sheets of mucinous epithelium with cytologic atypia characterized by loss of clarity an irregularly shaped nuclei with Dr. chromatin in irregular nuclear membrane. Differential diagnosis includes an adenocarcinoma, mucinous cystic neoplasm and intraductal papillary mucinous neoplasm. I will proceed with a PET scan for further evaluation. This was done on 12/03, and revealed: Mild FDG activity in the pancreatic mass involving the head and adjacent pancreatic body corresponding to the recently biopsied malignancy. Multiple predominantly subcentimeter pulmonary nodules are present throughout the lungs likely represent metastases. Most of these are too small to be characterized on the PET images but the largest shows FDG activity. No additional abnormality suspicious for metastatic or other malignant lesions are noted. Chronic left posterior parietal cerebral infarction Large hiatal hernia.. My plan was to proceed with systemic chemotherapy. She has been started on gemcitabine and Abraxane based regimen. After she had 3 cycles, he had CT scan. Repeat imaging from 04/04: CT abdomen: No appreciable change in the mass in the body of the pancreas from October [address] chest: Multiple bilateral pulmonary nodules not appreciably changed from previous PET/CT scan November 2020. Enlarged heart. Large esophageal hernia or intrathoracic stomach. I discussed the CT scan results with her, told her that even though there has not been much decrease in size of the tumor things do appear stable. Stable disease is considered a response to treatment. Hopefully things will decrease with the continued chemotherapy. She has been tolerating it well. She complains of intermittent diarrhea, after chemotherapy. CT scan of the abdomen from April 04: No appreciable change in the mass in the body of the pancreas from October [address] chest from April 04: Multiple bilateral pulmonary nodules not appreciably changed from previous PET/CT scan November 2020. Enlarged heart. Large esophageal hernia or intrathoracic stomach. She had a CT scan of the chest and abdomen on 08/22 which revealed: Previously described large 7 mm pulmonary nodules are smaller. No new pulmonary nodules are seen. A hypodense mass in the body of the pancreas and encasement surrounding the SMA is stable. The tail of the pancreas is not visualized, similar to previous study. No abnormal chest, abdomen and pelvic lymphadenopathy. Stable calcified left fibroid and right paramidline hernia containing fat and bowel loops. Moderate constipation. She is tolerating the treatment well. CA 19-9 was down to 1878 in August, 5 in May, from 4855 in November. On 03/10: 6267. Most recently went up to 2550. l re-staged her with another CT scan. CT chest revealed:. Interval increase in size in some of the larger pulmonary nodules compared to August 2021 exam. I had shared the results with her and her son, at her last visit. Explained to them that it appears that the disease is getting refractory to the current regimen. I will need to switch her to a different protocol. Oxaliplatin with 5 FU and leucovorin, would be 1 option.. I went over the details of the treatment including the pros and the cons. Explained the procedure for the Port-A-Cath placement as well as the risks and benefits of it. She had a Port-A-Cath placed for that. She needed time to think and reflect. She recieved one cycle on 02/17. She did not tolerate it well. She had some nausea abdominal pain and diarrhea. She mentions some blood in the stools. That is going away however she is still feeling rather fatigued. She does not wish to continue that regimen. She and her son are concerned that there were few treatment delays with the Gemzar Abraxane and that could have accounted for the progression seen on the CT scan. They wanted to go back to that regimen since she was tolerating well. She was restarted on Gemzar and Abraxane based regimen. She has been tolerating it well. CA 19-9 from 06/11:4537. CT scan of the abdomen and pelvis from 06/24: Stable pancreatic mass. Stable adenopathy. CT of the chest from 06/24: Slight interval increase in size in bilateral pulmonary nodules. CA 19-9: 09/18:6009. 08/20:6165. Her disease had been holding quite stable, till recently. She had felt more symptomatic, with complaints of increased epigastric and back pain,feeling more tired and short of breath. . I felt the treatment was catching up with her. I discussed with her and her son. She did not wish to continue on the chemotherapy, at least the IV meds. Together we decided to hold off on the current regimen. She would not mind taking oral chemotherapy. I offered her oral Xeloda, as second-line therapy. She wanted to try it. Baseline CA 19-9: 7407. She started it on 11/03/22. She had nausea and hand-foot syndrome. I advised her to take the Zofran on a scheduled basis Asked her to use Aquaphor, for the skin of the hands. I decreased the dose to 1000 mg b.i.d.. It does appear to be better tolerated. Ca 19/9: 9273. Scan of the abdomen from 02/15 revealed: Interval increase in size in the mass in the pancreas and adjacent lymph nodes. There is a significant vascular involvement and the splenic vein is occluded. Varices. Slightly enlarged fatty liver. No focal liver lesion. Large esophageal hernia or intrathoracic stomach. Diverticulosis and constipation. I shared the above results with her and her family. Explained that unfortunately the keeps item in does not appear to be working, since there is progression seen on the CT scans. My concern is that she is having significant toxicity from the treatment, without providing much benefit. she would have better quality of life, without the capecitabine. PLAN: The family has plans to go to [place] on March 16, so she can visit with the loved ones. I encouraged her to take a break from the treatment and go. She is rather anxious. I increased her alprazolam to 0.5 mg twice a day as needed. Refilled her MS Contin and oxycodone for the trip. I will follow-up on the tumor marker. She will return for a follow-up next month. Thanks, CC: Dr. Lancaster. - Time Spent With Patient Time Spent with Patient (in minutes): 30
[2023-03-04 15:23] VITALS: BMI 23.9
--- NOTE | 2023-03-04 15:54 | MHC.HEMONC ---
Pt here for ONC follow up with DR Cifuentes. Port accessed with blood return noted. Labs drawn from port and specimen sent to lab. Port flushed with heparin and de accessed. Next appointment scheduled in 8 weeks-calendar given. Dr Cifuentes into see pt-plan to discontinue capecitabine per provider
[2023-03-04 16:10] LABS: Hemoglobin 10.8 g/dl (12.0-16.0); Imm Gran Abs Auto 0.01 X10*3/uL (0.00-0.03); Imm Gran Pct Auto 0.2 % (0.0-0.4); MANUAL DIFF FLAG SCAN; PLT CLUMP 1; Red Cell Distribution Width 17.1 % (11.0-16.0); SCAN SMEAR FLAG 1
[2023-03-04 16:12] LABS: Eosinophils Absolute Auto 0.2 X10*3/uL (0.0-0.4); Eosinophils Percent Auto 3.3 % (0-4); Hematocrit 33.5 % (37.0-47.0); Lymphocytes Absolute Auto 0.9 X10*3/uL (1.2-4.9); Lymphocytes Percent Auto 17.9 % (20-40); Mean Corpuscular HGB Conc 32.2 g/dl (31.0-35.0); Mean Corpuscular Hemoglobin 31.9 pg (27.0-33.0); Mean Corpuscular Volume 98.8 fL (80.0-98.0); Mean Platelet Volume 10.7 fL (9.4-12.3); Monocytes Absolute Auto 0.6 X10*3/uL (0.1-1.2); Monocytes Percent Auto 11.6 % (2-11); Neutrophils Absolute Auto 3.2 x10*3/uL (2.0-8.3); Red Blood Count 3.39 X10*6/uL (4.20-5.50)
[2023-03-04 16:20] LABS: Platelet Count 95 X10*3/uL (160-400); White Blood Count 4.8 X10*3/uL (4.8-10.8)
[2023-03-04 16:28] LABS: Alanine Aminotransferase 12 U/L (0-31); Albumin Level 3.7 g/dL (3.5-5.0); Alkaline Phosphatase 59 U/L (39-117); Anion Gap 10 (12-20); Aspartate Amino Transferase 17 U/L (5-31); Bilirubin Total 0.4 mg/dL (0.0-1.0); Blood Urea Nitrogen 16 mg/dL (9-16); Calcium 8.5 mg/dL (8.4-10.2); Carbon Dioxide 27 mmol/L (22-29); Chloride 105 mmol/L (96-108); Estimated Glomerular Filt Rate > 60; Glucose Random 156 mg/dL (60-115); Potassium 4.2 mmol/L (3.3-5.1); Sodium 138 mmol/L (135-145)
--- NOTE | 2023-03-04 16:37 | MHC.HEMONCMA ---
patient seen today for pancreatic mass, vss, follow up with provider jamia
[2023-03-04 17:03] LABS: SLIDE REVIEW VERIFIED
[2023-03-08 10:18] LABS: Carbohydrate Antigen 19-9 11198 U/mL (<34)
--- NOTE | 2023-04-05 09:34 | MHC.HEMONC ---
Triage call: Received call from [facility]- patient was seen last week by PCP. Reported extensive bruising throughout body and would like patient to be scheduled to see Dr. Cifuentes for follow up. Patient scheduled 04/09/23 at 1:40pm- voicemail left by Iris with appt date and time. Awaiting callback.
--- NOTE | 2023-04-05 09:40 | MHC.HEMONC ---
Triage: Morphine 60mg tablets are not available at [facility] called and [facility] has this medication. Dr. Cifuentes sent new order to this pharmacy. Voicemail left with son Eliot with update.
[2023-04-06 13:23] LABS: MANUAL DIFF FLAG NO
[2023-04-06 13:29] VITALS: BP 144/67; PULSE 68; TEMP 36.3; O2SAT 99; BMI 23.6
[2023-04-06 13:30] LABS: Basophils Percent Auto 0.3 % (0-2); Eosinophils Absolute Auto 0.3 X10*3/uL (0.0-0.4); Eosinophils Percent Auto 4.5 % (0-4); Hematocrit 41.6 % (37.0-47.0); Hemoglobin 13.3 g/dl (12.0-16.0); Imm Gran Abs Auto 0.01 X10*3/uL (0.00-0.03); Imm Gran Pct Auto 0.2 % (0.0-0.4); Lymphocytes Absolute Auto 0.9 X10*3/uL (1.2-4.9); Lymphocytes Percent Auto 15.8 % (20-40); Mean Corpuscular Hemoglobin 31.1 pg (27.0-33.0); Mean Corpuscular Volume 97.2 fL (80.0-98.0); Mean Platelet Volume 10.7 fL (9.4-12.3); Monocytes Absolute Auto 0.5 X10*3/uL (0.1-1.2); Monocytes Percent Auto 7.7 % (2-11); Neutrophils Absolute Auto 4.3 x10*3/uL (2.0-8.3); Neutrophils Percent Auto 71.5 % (45-73); Platelet Count 152 X10*3/uL (160-400); Red Blood Count 4.28 X10*6/uL (4.20-5.50); Red Cell Distribution Width 13.5 % (11.0-16.0)
--- NOTE | 2023-04-06 13:43 | PM.HEMONCPN ---
Medical Summary - Medical Summary Date of Service: 04/06/23 Chief complaint: Follow-up for pancreatic carcinoma. Primary Care Provider: Malika Mayer MD Medical Summary: DIAGNOSIS: Pancreatic Cancer. CURRENT THERAPY: Completed Gemcitabine Abraxane., cycle 14, day 15. on 01/15. She then received: One cycle of Liposomal irinotecan with 5 FU leucovorin on 02/17. She did not tolerate it. She was subsequently started on gemcitabine Abraxane. She received treatment 21 on 09/04. Started Capecitabine on 11/03/22. Completed cycle 5. Now off. Interval History Interval history: This is a pleasant 72 year-old lady, here for a follow up visit. She mentions she is not feeling too well. She has had redness of her right eye for a week. She is feeling rather tired however energy level has improved she has been off the capecitabine. She has had an occasional headache. No dizziness. Denies fever but has had chills. She denies dysphagia or odynophagia. She denies any chest pain or trouble breathing. She complains of pain in her back, radiating to the front of the belly. She has had nausea. The Zofran is helping that. Sometimes she gets loose bowels. Her apetite is so so, her weight is stable. She complains of body aches. She has been taking the oxycodone every 4 hours, and the morphine every 8 hours. She has had some anxiety. She gets panic attacks. She is in good spirits. Rest of the review of systems is unremarkable. She has moved in with her son in [place]. Previous history: She was admitted to [facility] for a couple days for shortness of breath dizziness and frequent falls. She started the Xeloda on 11/03/22. She was seen in the [facility] ER on Wednesday last month, for shortness of breath and belly pain. She had blood work urine and CT scans which were stable. She was seen in house. She presented to the hospital with complaints of abdominal pain. She complained of pain all over , on her abdomen, back, chest, legs. She reported that the abdominal pain had been going on for 2 months but worsened over the past 3 days. The pain is generalized abdominal pain, 8/10, intermittent, nonradiating, associated with nausea and vomiting. She also had occasional chills with no fever. She reported the pain to be just generalized discomfort. When asked about weight loss she reports about 1-2 lb of weight loss but not more. She also complained of years of shortness of breath with no change. She denied urinary symptoms and no lower extremity edema. Patient also complained of bloating, and low appetite. Her temp was 98.6?, pulse rate of 69, respiratory rate of 19, and oxygen saturation of 95% on room air. Labs: significant for PT of 27.7 INR of 2.3, sodium of 130, BUN of 11 with creatinine of 0.77, troponin 38 trended down to 37, BNP of 259, CT abdomen showed: New mass in the head neck and body of the pancreas measuring 4.5 x 6.5 cm worrisome for neoplasm. New bilateral pulmonary nodules. Upper abdominal varices. Large esophageal hernia, or intrathoracic stomach. Diverticulosis of the colon. Probable small uterine fibroid. Hospital course: The patient was evaluated for abdominal pain. I recommended, Biopsy of the pancreas. Discussed with IR who recommended holding both aspirin and warfarin for 3 days prior to procedure which was to be scheduled for next Wednesday. After discussing with the patient, she preferred to come back at the time of the biopsy. Her INR of 1.6 at the day of discharge. She was noted to have hyponatremia which seems to be chronic around 130-131. BNP was noted to be mildly elevated around 200 which was the baseline for her, looking back at her previous readings. Not in acute CHF exacerbation. les. Upper abdominal varices. Large esophageal hernia Sometimes she loses a sense of taste and smell. She had COVID about a year ago. Past medical history: Diabetes, COPD, CVA, hypertension. Review of Systems - Constitutional Reports no additional constitutional complaints, Reports fatigue, Denies fever(s), Reports weakness, Reports weight loss - Eyes Reports no additional eye complaints - ENT Reports no additional ear, nose, mouth, and throat complaints - Cardiovascular Reports no additional cardiovascular complaints - Respiratory Reports no additional respiratory complaints - Gastrointestinal Reports no additional gastrointestinal complaints - Genitourinary Reports no additional female genitourinary complaints - Musculoskeletal Reports no additional musculoskeletal complaints - Integumentary/Breasts Skin/Breast: Reports no additional skin complaints - Neurologic Reports no additional neurologic complaints, Reports headache(s), Denies loss of vision, Reports weakness - Psychiatric Reports no additional psychiatric complaints - Endocrine Reports no additional endocrine complaints - Hematologic/Lymphatic Reports no additional hematologic/lymphatic complaints - Allergic/Immunologic Reports no additional allergic/immunologic complaints [facility] Medical History: Medical History (Last Reviewed 04/06/23 @ 13:31 by Tyler Gillespie) Anxiety and depression Biventricular ICD (implantable cardioverter-defibrillator) in place Cardiomyopathy Congestive heart failure COPD (chronic obstructive pulmonary disease) Coronary artery disease Current use of anticoagulant therapy CVA (cerebral vascular accident) Diverticulitis Esophageal hernia GERD (gastroesophageal reflux disease) History of renal calculi HTN (hypertension) Hypercholesterolemia Hyponatremia Osteopenia Type 2 diabetes mellitus with hyperglycemia Umbilical hernia Functional capacity: uses cane/walker Patient : No Family History: Family History (Last Reviewed 04/06/23 @ 13:31 by Tyler Gillespie) Father Medical history unknown Mother Diabetes Hypertension Surgical History: Surgical History (Last Reviewed 04/06/23 @ 13:31 by Tyler Gillespie) History of hemicolectomy History of incisional hernia repair History of pacemaker Social History: Social History (Last Reviewed 04/06/23 @ 13:31 by Tyler Gillespie) Living Situation History: Household Members: Family Housing: House Are you a primary day care center director to a significant other at home: No Do you presently have visiting nurse or other home services: No Tobacco History: Patient Tobacco Use Status: Never used Tobacco e-Cigarette/Vaping Use: Never Used Second Hand Smoke Exposure: No Advance Directives: Advance Directives Date on File: 02/17/22 Occupation Assessmet: service: No Current occupational status: retired Oncology Screenings - ECOG Performance Status ECOG Performance Status: 1 Home Medications and Allergies Home Medications Medication Instructions Recorded Confirmed Type albuterol sulfate 90 mcg/actuation 2 puff inhalation Q4H PRN 10/06/22 04/06/23 History aerosol inhaler Respiratory Distress fluticasone furoate 200 1 inh inhalation DAILY 10/06/22 04/06/23 History mcg/actuation blister powder for inhalation (Arnuity Ellipta) furosemide 40 mg tablet 40 mg PO Q OTHER DAY 12/21/22 04/06/23 History Allergies Allergy/AdvReac Type Severity Reaction Status Date / Time No Known Allergies Allergy Verified 04/06/23 14:43 Exam Vital signs: Vital Signs Temp 97.4 F 04/06/23 13:29 Pulse 68 04/06/23 13:29 Resp 12 11/30/22 08:57 BP 144/67 H 04/06/23 13:29 Pulse Ox 99 04/06/23 13:29 O2 Del Method Room Air 04/06/23 13:29 Intake & Output 04/05/23 04/06/23 04/06/23 18:59 06:59 18:59 Other: Weight 55.5 kg Weight in Grams 08355 Weight 55.5 kg BMI result Body Mass Index 23.6 - Constitutional Present: no acute distress, mild distress - Routine HEENT Exam Head: Present: normal inspection Eye: Present: normal appearance ENT: Present: mucous membranes moist - Routine Neck Exam Present: full ROM - Routine Respiratory Exam Present: CTAB - Routine Cardiovascular Exam Cardiovascular: Present: RRR, S1, S2 - Routine Abdominal Exam Present: soft, tenderness. Absent: nontender - Routine Rectal Exam Patient deferred: digital exam - Routine Extremities Exam Present: nontender - Routine Back/Spine/Pelvis Exam Back/Spine: Present: full ROM - Routine Skin Exam Present: intact - Routine Neurological Exam Present: alert, oriented X3 - Routine Psychiatric Exam Present: normal affect Data - Labs CBC & Chem 7: 04/06/23 13:22 04/06/23 13:22 Assessment and Plan Patient Active problem list reviewed?: Yes (1) Pancreatic carcinoma Status: Acute Assessment and plan: This is a pleasant 70 year-old lady who presents with a couple of months history of abdominal pain that recently worsened. CT scan of the abdomen revealed: New mass in the head, neck and body the pancreas measuring 4.5 x 6.5 cm worrisome for neoplasm. New bilateral pulmonary nodules. Upper abdominal varices. Large esophageal hernia or intrathoracic stomach. Diverticulosis of the colon. Probable small uterine fibroid. Concern was for pancreatic cancer. Tumor marker Ca 19/9 is :4524. Biopsy was done on 11/12. Pathology revealed: Positive for atypical mucinous neoplasm. Moderately cellular specimen consisting of sheets of mucinous epithelium with cytologic atypia characterized by loss of clarity an irregularly shaped nuclei with Dr. chromatin in irregular nuclear membrane. Differential diagnosis includes an adenocarcinoma, mucinous cystic neoplasm and intraductal papillary mucinous neoplasm. I will proceed with a PET scan for further evaluation. This was done on 12/03, and revealed: Mild FDG activity in the pancreatic mass involving the head and adjacent pancreatic body corresponding to the recently biopsied malignancy. Multiple predominantly subcentimeter pulmonary nodules are present throughout the lungs likely represent metastases. Most of these are too small to be characterized on the PET images but the largest shows FDG activity. No additional abnormality suspicious for metastatic or other malignant lesions are noted. Chronic left posterior parietal cerebral infarction Large hiatal hernia.. My plan was to proceed with systemic chemotherapy. She has been started on gemcitabine and Abraxane based regimen. After she had 3 cycles, he had CT scan. Repeat imaging from 04/04: CT abdomen: No appreciable change in the mass in the body of the pancreas from October [address] chest: Multiple bilateral pulmonary nodules not appreciably changed from previous PET/CT scan November 2020. Enlarged heart. Large esophageal hernia or intrathoracic stomach. I discussed the CT scan results with her, told her that even though there has not been much decrease in size of the tumor things do appear stable. Stable disease is considered a response to treatment. Hopefully things will decrease with the continued chemotherapy. She has been tolerating it well. She complains of intermittent diarrhea, after chemotherapy. CT scan of the abdomen from April 04: No appreciable change in the mass in the body of the pancreas from October [address] chest from April 04: Multiple bilateral pulmonary nodules not appreciably changed from previous PET/CT scan November 2020. Enlarged heart. Large esophageal hernia or intrathoracic stomach. She had a CT scan of the chest and abdomen on 08/22 which revealed: Previously described large 7 mm pulmonary nodules are smaller. No new pulmonary nodules are seen. A hypodense mass in the body of the pancreas and encasement surrounding the SMA is stable. The tail of the pancreas is not visualized, similar to previous study. No abnormal chest, abdomen and pelvic lymphadenopathy. Stable calcified left fibroid and right paramidline hernia containing fat and bowel loops. Moderate constipation. She is tolerating the treatment well. CA 19-9 was down to 1878 in August, 2055 in May, from 4855 in November. On 03/10: 6267. Most recently went up to 2550. l re-staged her with another CT scan. CT chest revealed:. Interval increase in size in some of the larger pulmonary nodules compared to August 2021 exam. I had shared the results with her and her son, at her last visit. Explained to them that it appears that the disease is getting refractory to the current regimen. I will need to switch her to a different protocol. Oxaliplatin with 5 FU and leucovorin, would be 1 option.. I went over the details of the treatment including the pros and the cons. Explained the procedure for the Port-A-Cath placement as well as the risks and benefits of it. She had a Port-A-Cath placed for that. She needed time to think and reflect. She recieved one cycle on 02/17. She did not tolerate it well. She had some nausea abdominal pain and diarrhea. She mentions some blood in the stools. That is going away however she is still feeling rather fatigued. She does not wish to continue that regimen. She and her son are concerned that there were few treatment delays with the Gemzar Abraxane and that could have accounted for the progression seen on the CT scan. They wanted to go back to that regimen since she was tolerating well. She was restarted on Gemzar and Abraxane based regimen. She has been tolerating it well. CA 19-9 from 06/11:4537. CT scan of the abdomen and pelvis from 06/24: Stable pancreatic mass. Stable adenopathy. CT of the chest from 06/24: Slight interval increase in size in bilateral pulmonary nodules. CA 19-9: 09/18:6009. 08/20:6165. Her disease had been holding quite stable, till recently. She had felt more symptomatic, with complaints of increased epigastric and back pain,feeling more tired and short of breath. . I felt the treatment was catching up with her. I discussed with her and her son. She did not wish to continue on the chemotherapy, at least the IV meds. Together we decided to hold off on the current regimen. She would not mind taking oral chemotherapy. I offered her oral Xeloda, as second-line therapy. She wanted to try it. Baseline CA 19-9: 7407. She started it on 11/03/22. She had nausea and hand-foot syndrome. I advised her to take the Zofran on a scheduled basis Asked her to use Aquaphor, for the skin of the hands. I decreased the dose to 1000 mg b.i.d.. It does appear to be better tolerated. Ca 19/9: 9273. Scan of the abdomen from 03/27 revealed: Interval increase in size in the mass in the pancreas and adjacent lymph nodes. There is a significant vascular involvement and the splenic vein is occluded. Varices. Slightly enlarged fatty liver. No focal liver lesion. Large esophageal hernia or intrathoracic stomach. Diverticulosis and constipation. At her last visit, I shared the above results with her and her family. Explained that unfortunately the keeps item in does not appear to be working, since there is progression seen on the CT scans. My concern was that she is having significant toxicity from the treatment, without providing much benefit. She would have better quality of life, without the capecitabine. She actually has felt better since she came off of it. However she is concerned about not being on any anti tumor therapy. I explained to her that she may have better quality and quantity of life since, she would be at risk of significant treatment related toxicity. She appears to have conjunctivitis. PLAN: Dr. Mayer already sent a script for Polytrim eye drops. I Refilled her Marinol. She will return in 1 month for port flush and for a follow-up. I discussed hospice referral but they would rather wait on that. Thanks, CC: Dr. Lancaster. - Time Spent With Patient Time Spent with Patient (in minutes): 30
[2023-04-06 13:46] LABS: Alanine Aminotransferase 15 U/L (0-31); Albumin Level 4.4 g/dL (3.5-5.0); Alkaline Phosphatase 66 U/L (39-117); Anion Gap 12 (12-20); Aspartate Amino Transferase 22 U/L (5-31); Bilirubin Total 0.4 mg/dL (0.0-1.0); Blood Urea Nitrogen 15 mg/dL (9-16); Calcium 9.2 mg/dL (8.4-10.2); Carbon Dioxide 28 mmol/L (22-29); Chloride 105 mmol/L (96-108); Creatinine Clr Calc Pharmacy 50.2; Estimated Glomerular Filt Rate > 60; Glucose Random 113 mg/dL (60-115); Potassium 4.6 mmol/L (3.3-5.1); Sodium 140 mmol/L (135-145); Total Protein 7.3 g/dL (6.5-8.0)
--- NOTE | 2023-04-06 14:39 | MHC.HEMONC ---
Dr. Cifuentes asked this nurse about when pt is due for next port flush, nurse informed her that pt's port was last flushed 4 weeks ago, is currently scheduled for next Q8week flush on 04/29/23. Dr. Cifuentes said she would like to see pt next in 1 month, so nurse booked Onc f/u appt for 05/06/23 and adjusted port flush appt to coincide w/ this appt, gave d/c packet to pt and son Eliot. Pt reported that her R chest and neck are often itchy, nurse assessed and found no inflammation around port, but skin to R chest and above shoulder area was very slightly reddened, pt said it feels dry, said she cleans it routinely w/ alcohol, which pt's son correctly commented can cause drying of the skin. Nurse assured pt that flushing the port earlier than needed would not improve these symptoms, and that cleaning the area w/ alcohol is only needed before puncturing her skin to access her port, also advised she may use moisturizing lotion over the skin and surrounding skin. Dr. Cifuentes was updated, also stated she'd be sending scrip for pt's conjunctivitis. Pt was given d/c packet, told scrip for eye-drops would be sent.
--- NOTE | 2023-04-06 14:43 | MHC.HEMONCMA ---
patient seen for mancreatic mass, vss, labs, following up in 1 month
[2023-05-06 15:32] VITALS: BP 155/72; PULSE 65; O2SAT 98
--- NOTE | 2023-05-06 15:42 | P.PNHO-ONC_ITS ---
Medical Summary - Medical Summary Date of Service: 05/06/23 Chief complaint: Follow-up for: Pancreatic carcinoma. Primary Care Provider: Malika Mayer MD Medical Summary: DIAGNOSIS: Pancreatic Cancer. CURRENT THERAPY: Completed Gemcitabine Abraxane., cycle 14, day 15. on 01/15. She then received: One cycle of Liposomal irinotecan with 5 FU leucovorin on 02/17. She did not tolerate it. She was subsequently started on gemcitabine Abraxane. She received treatment 21 on 09/04. Started Capecitabine on 11/03/22. Completed cycle 5. Now off. Interval History Interval history: This is a pleasant 72 year-old lady, here for a follow up visit. She mentions she is not doing too well. She has aggravation of her pain. It involves the upper abdomen and radiates into the back. She takes MS Contin 3 times a day and the oxycodone every 4 hours as needed. She has to take extra Tylenol 2 hours later. She has been feeling anxiety attacks. Her energy level is low, though it has improved since she has been off the capecitabine. She has had an occasional headache. Denies dizziness. Denies fever but has chills. She denies dysphagia or odynophagia. She denies any chest pain or trouble breathing. She complains of pain in her back, radiating to the front of the belly. She has had nausea. The Zofran is helping that. Sometimes she gets loose bowels. Her apetite is so so, her weight is stable. She complains of body aches. She has had some anxiety. She gets panic attacks. She is in good spirits. Rest of the review of systems is unremarkable. She has moved in with her son in [place]. Previous history: She was admitted to [facility] for a couple days for shortness of breath dizziness and frequent falls. She started the Xeloda on 11/03/22. She was seen in the [facility] ER on Wednesday last month, for shortness of breath and belly pain. She had blood work urine and CT scans which were stable. She was seen in house. She presented to the hospital with complaints of abdominal pain. She complained of pain all over , on her abdomen, back, chest, legs. She reported that the abdominal pain had been going on for 2 months but worsened over the past 3 days. The pain is generalized abdominal pain, 8/10, intermittent, nonradiating, associated with nausea and vomiting. She also had occasional chills with no fever. She reported the pain to be just generalized discomfort. When asked about weight loss she reports about 1-2 lb of weight loss but not more. She also complained of years of shortness of breath with no change. She denied urinary symptoms and no lower extremity edema. Patient also complained of bloating, and low appetite. Her temp was 98.6?, pulse rate of 69, respiratory rate of 19, and oxygen saturation of 95% on room air. Labs: significant for PT of 27.7 INR of 2.3, sodium of 130, BUN of 11 with creatinine of 0.77, troponin 38 trended down to 37, BNP of 259, CT abdomen showed: New mass in the head neck and body of the pancreas measuring 4.5 x 6.5 cm worrisome for neoplasm. New bilateral pulmonary nodules. Upper abdominal varices. Large esophageal hernia, or intrathoracic stomach. Diverticulosis of the colon. Probable small uterine fibroid. Hospital course: The patient was evaluated for abdominal pain. I recommended, Biopsy of the pancreas. Discussed with IR who recommended holding both aspirin and warfarin for 3 days prior to procedure which was to be scheduled for next Wednesday. After discussing with the patient, she preferred to come back at the time of the biopsy. Her INR of 1.6 at the day of discharge. She was noted to have hyponatremia which seems to be chronic around 130-131. BNP was noted to be mildly elevated around 200 which was the baseline for her, looking back at her previous readings. Not in acute CHF exacerbation. les. Upper abdominal varices. Large esophageal hernia Sometimes she loses a sense of taste and smell. She had COVID about a year ago. Past medical history: Diabetes, COPD, CVA, hypertension. Review of Systems - Constitutional Reports no additional constitutional complaints, Reports fatigue, Reports lack of energy, Denies weight loss - Eyes Reports no additional eye complaints - ENT Reports no additional ear, nose, mouth, and throat complaints - Cardiovascular Reports no additional cardiovascular complaints - Respiratory Reports no additional respiratory complaints - Gastrointestinal Reports no additional gastrointestinal complaints, Reports abdominal pain - Genitourinary Reports no additional female genitourinary complaints - Musculoskeletal Reports no additional musculoskeletal complaints, Reports back pain - Integumentary/Breasts Skin/Breast: Reports no additional skin complaints - Neurologic Reports no additional neurologic complaints, Reports headache(s), Denies loss of vision, Reports weakness - Psychiatric Reports no additional psychiatric complaints - Endocrine Reports no additional endocrine complaints - Hematologic/Lymphatic Reports no additional hematologic/lymphatic complaints - Allergic/Immunologic Reports no additional allergic/immunologic complaints [facility] Medical History: Medical History (Last Reviewed 05/06/23 @ 15:33 by Tyler Gillespie) Anxiety and depression Biventricular ICD (implantable cardioverter-defibrillator) in place Cardiomyopathy Congestive heart failure COPD (chronic obstructive pulmonary disease) Coronary artery disease Current use of anticoagulant therapy CVA (cerebral vascular accident) Diverticulitis Esophageal hernia GERD (gastroesophageal reflux disease) History of renal calculi HTN (hypertension) Hypercholesterolemia Hyponatremia Osteopenia Type 2 diabetes mellitus with hyperglycemia Umbilical hernia Functional capacity: uses cane/walker Patient : No Family History: Family History (Last Reviewed 05/06/23 @ 15:33 by Tyler Gillespie) Father Medical history unknown Mother Diabetes Hypertension Surgical History: Surgical History (Last Reviewed 05/06/23 @ 15:33 by Tyler Gillespie) History of hemicolectomy History of incisional hernia repair History of pacemaker Social History: Social History (Last Reviewed 05/06/23 @ 15:33 by Tyler Gillespie) Living Situation History: Household Members: Family Housing: House Are you a primary residential care facility manager to a significant other at home: No Do you presently have visiting nurse or other home services: No Alcohol History Details: Currently Displaying Signs/Symptoms of Alcohol Withdrawal: No Tobacco History: Patient Tobacco Use Status: Never used Tobacco e-Cigarette/Vaping Use: Never Used Second Hand Smoke Exposure: No Substance Use History: Use of substances other than those prescribed or required for medical reasons : No Domestic Abuse History: Have you been hit, kicked, punched, or otherwise hurt by someone within the past year? If so, by whom?: No Do you feel safe in your current relationship?: No Healthcare Practices: Evangelical Healthcare Practices: Druze/ Hoahaoism Advance Directives: Advance Directives Date on File: 02/17/22 Nutrition Assessment: Recently lost weight without trying: Yes How much weight loss: 24-33 pounds Eating poorly because of decreased appetite: Yes Nutrition screen score: 6 Nutrition Risks: Acute nausea or vomiting Patient : No : No Poor oral hygiene: No Occupation Assessmet: service: No Current occupational status: retired Oncology Screenings - ECOG Performance Status ECOG Performance Status: 1 Home Medications and Allergies Home Medications Medication Instructions Recorded Confirmed Type albuterol sulfate 90 mcg/actuation 2 puff inhalation Q4H PRN 10/06/22 05/06/23 History aerosol inhaler Respiratory Distress fluticasone furoate 200 1 inh inhalation DAILY 10/06/22 05/06/23 History mcg/actuation blister powder for inhalation (Arnuity Ellipta) furosemide 40 mg tablet 40 mg PO Q OTHER DAY 12/21/22 05/06/23 History Allergies Allergy/AdvReac Type Severity Reaction Status Date / Time No Known Allergies Allergy Verified 05/06/23 15:33 Exam Vital signs: Vital Signs Temp 97.4 F 04/06/23 13:29 Pulse 65 05/06/23 15:32 Resp 12 11/30/22 08:57 BP 155/72 H 05/06/23 15:32 Pulse Ox 98 05/06/23 15:32 O2 Del Method Room Air 05/06/23 15:32 Weight 55.5 kg BMI result Body Mass Index 23.6 - Constitutional Present: no acute distress, mild distress - Routine HEENT Exam Head: Present: normal inspection Eye: Present: normal appearance ENT: Present: mucous membranes moist - Routine Neck Exam Present: full ROM - Routine Respiratory Exam Present: CTAB - Routine Cardiovascular Exam Cardiovascular: Present: RRR, S1, S2 - Routine Abdominal Exam Present: soft, tenderness. Absent: nontender - Routine Rectal Exam Patient deferred: digital exam - Routine Extremities Exam Present: nontender - Routine Back/Spine/Pelvis Exam Back/Spine: Present: full ROM - Routine Skin Exam Present: intact - Routine Neurological Exam Present: alert, oriented X3 - Routine Psychiatric Exam Present: normal affect Data - Labs CBC & Chem 7: 04/06/23 13:22 04/06/23 13:22 Assessment and Plan Patient Active problem list reviewed?: Yes (1) Pancreatic carcinoma Status: Acute Assessment and plan: This is a pleasant 70 year-old lady who presents with a couple of months history of abdominal pain that recently worsened. CT scan of the abdomen revealed: New mass in the head, neck and body the pancreas measuring 4.5 x 6.5 cm worrisome for neoplasm. New bilateral pulmonary nodules. Upper abdominal varices. Large esophageal hernia or intrathoracic stomach. Diverticulosis of the colon. Probable small uterine fibroid. Concern was for pancreatic cancer. Tumor marker Ca 19/9 is :4524. Biopsy was done on 11/12. Pathology revealed: Positive for atypical mucinous neoplasm. Moderately cellular specimen consisting of sheets of mucinous epithelium with cytologic atypia characterized by loss of clarity an irregularly shaped nuclei with Dr. chromatin in irregular nuclear membrane. Differential diagnosis includes an adenocarcinoma, mucinous cystic neoplasm and intraductal papillary mucinous neoplasm. I will proceed with a PET scan for further evaluation. This was done on 12/03, and revealed: Mild FDG activity in the pancreatic mass involving the head and adjacent pancreatic body corresponding to the recently biopsied malignancy. Multiple predominantly subcentimeter pulmonary nodules are present throughout the lungs likely represent metastases. Most of these are too small to be characterized on the PET images but the largest shows FDG activity. No additional abnormality suspicious for metastatic or other malignant lesions are noted. Chronic left posterior parietal cerebral infarction Large hiatal hernia.. My plan was to proceed with systemic chemotherapy. She has been started on gemcitabine and Abraxane based regimen. After she had 3 cycles, he had CT scan. Repeat imaging from 04/04: CT abdomen: No appreciable change in the mass in the body of the pancreas from October [address] chest: Multiple bilateral pulmonary nodules not appreciably changed from previous PET/CT scan November 2020. Enlarged heart. Large esophageal hernia or intrathoracic stomach. I discussed the CT scan results with her, told her that even though there has not been much decrease in size of the tumor things do appear stable. Stable disease is considered a response to treatment. Hopefully things will decrease with the continued chemotherapy. She has been tolerating it well. She complains of intermittent diarrhea, after chemotherapy. CT scan of the abdomen from April 04: No appreciable change in the mass in the body of the pancreas from October [address] chest from April 04: Multiple bilateral pulmonary nodules not appreciably changed from previous PET/CT scan November 2020. Enlarged heart. Large esophageal hernia or intrathoracic stomach. She had a CT scan of the chest and abdomen on 08/22 which revealed: Previously described large 7 mm pulmonary nodules are smaller. No new pulmonary nodules are seen. A hypodense mass in the body of the pancreas and encasement surrounding the SMA is stable. The tail of the pancreas is not visualized, similar to previous study. No abnormal chest, abdomen and pelvic lymphadenopathy. Stable calcified left fibroid and right paramidline hernia containing fat and bowel loops. Moderate constipation. She is tolerating the treatment well. CA 19-9 was down to 1878 in August, 5 in May, from 4855 in November. On 03/10: 6267. Most recently went up to 2550. l re-staged her with another CT scan. CT chest revealed:. Interval increase in size in some of the larger pulmonary nodules compared to August 2021 exam. I had shared the results with her and her son, at her last visit. Explained to them that it appears that the disease is getting refractory to the current regimen. I will need to switch her to a different protocol. Oxaliplatin with 5 FU and leucovorin, would be 1 option.. I went over the details of the treatment including the pros and the cons. E xplained the procedure for the Port-A-Cath placement as well as the risks and benefits of it. She had a Port-A-Cath placed for that. She needed time to think and reflect. She recieved one cycle on 02/17. She did not tolerate it well. She had some nausea abdominal pain and diarrhea. She mentions some blood in the stools. That is going away however she is still feeling rather fatigued. She does not wish to continue that regimen. She and her son are concerned that there were few treatment delays with the Gemzar Abraxane and that could have accounted for the progression seen on the CT scan. They wanted to go back to that regimen since she was tolerating well. She was restarted on Gemzar and Abraxane based regimen. She has been tolerating it well. CA 19-9 from 06/11:4537. CT scan of the abdomen and pelvis from 06/24: Stable pancreatic mass. Stable adenopathy. CT of the chest from 06/24: Slight interval increase in size in bilateral pulmonary nodules. CA 19-9: 09/18:6009. 08/20:6165. Her disease had been holding quite stable, till recently. She had felt more symptomatic, with complaints of increased epigastric and back pain,feeling more tired and short of breath. . I felt the treatment was catching up with her. I discussed with her and her son. She did not wish to continue on the chemotherapy, at least the IV meds. Together we decided to hold off on the current regimen. She would not mind taking oral chemotherapy. I offered her oral Xeloda, as second-line therapy. She wanted to try it. Baseline CA 19-9: 7407. She started it on 11/03/22. She had nausea and hand-foot syndrome. I advised her to take the Zofran on a scheduled basis Asked her to use Aquaphor, for the skin of the hands. I decreased the dose to 1000 mg b.i.d.. It does appear to be better tolerated. Ca 19/9: 9273. Scan of the abdomen from 02/15 revealed: Interval increase in size in the mass in the pancreas and adjacent lymph nodes. There is a significant vascular involvement and the splenic vein is occluded. Varices. Slightly enlarged fatty liver. No focal liver lesion. Large esophageal hernia or intrathoracic stomach. Diverticulosis and constipation. At her last visit, I shared the above results with her and her family. Explained that unfortunately the keeps item in does not appear to be working, since there is progression seen on the CT scans. My concern was that she is having significant toxicity from the treatment, without providing much benefit. She would have better quality of life, without the capecitabine. She actually has felt better since she came off of it. However she is conc erned about not being on any anti tumor therapy. I explained to her that she may have better quality and quantity of life since, she would be at risk of significant treatment related toxicity. I had referred them to hospice. They made an informational visit. However the son felt he did not 1 the mom not to be able to get medical care or go to the hospital if needed. So they declined. She has had increasing pain issues. PLAN: I offered to set up an appointment with pain management, since the high doses of narcotics are still not cutting it. Hopefully she can get a nerve block, for better lasting pain control. Will set up an appointment. Meanwhile I refilled her MS Contin and oxycodone prescriptions. She will return in 1 month for port flush and in 2 months for a follow-up. I discussed hospice referral but they would rather wait on that. Thanks, CC: Dr. Mayer. - Time Spent With Patient Time Spent with Patient (in minutes): 25
--- NOTE | 2023-05-06 16:20 | MHC.HEMONC ---
Port accessed with blood return noted. Labs drawn from port-specimen to lab. Port flushed with heparin and de accessed. Next appointment scheduled for 8 weeks. Calendar given. Refill request for oxycodone and morphine given to Dr Cifuentes. Plan for pt to be sen at pain clinic per Dr Cifuentes. Tyler aware and will schedule appointment and notify pt.
--- NOTE | 2023-05-06 16:21 | MHC.HEMONCMA ---
patient seen today for pancreatic mass, vss, labs, following up with provider in 3 months
[2023-05-06 16:28] LABS: MANUAL DIFF FLAG NO
[2023-05-06 16:35] LABS: Basophils Percent Auto 0.2 % (0-2); Imm Gran Abs Auto 0.02 X10*3/uL (0.00-0.03); Imm Gran Pct Auto 0.3 % (0.0-0.4); Lymphocytes Absolute Auto 1.1 X10*3/uL (1.2-4.9); PLT CLUMP 1; Red Cell Distribution Width 13.3 % (11.0-16.0); SCAN SMEAR FLAG 1
[2023-05-06 16:37] LABS: Eosinophils Absolute Auto 0.2 X10*3/uL (0.0-0.4); Eosinophils Percent Auto 2.7 % (0-4); Hematocrit 36.4 % (37.0-47.0); Hemoglobin 11.8 g/dl (12.0-16.0); Lymphocytes Percent Auto 16.8 % (20-40); Mean Corpuscular HGB Conc 32.4 g/dl (31.0-35.0); Mean Corpuscular Hemoglobin 30.2 pg (27.0-33.0); Mean Corpuscular Volume 93.1 fL (80.0-98.0); Mean Platelet Volume 10.8 fL (9.4-12.3); Monocytes Absolute Auto 0.5 X10*3/uL (0.1-1.2); Neutrophils Absolute Auto 4.7 x10*3/uL (2.0-8.3); Red Blood Count 3.91 X10*6/uL (4.20-5.50)
[2023-05-06 16:43] LABS: Platelet Count 135 X10*3/uL (160-400); White Blood Count 6.4 X10*3/uL (4.8-10.8)
[2023-05-06 16:46] LABS: Alanine Aminotransferase 18 U/L (0-31); Alkaline Phosphatase 59 U/L (39-117); Anion Gap 12 (12-20); Aspartate Amino Transferase 24 U/L (5-31); Bilirubin Total 0.4 mg/dL (0.0-1.0); Blood Urea Nitrogen 15 mg/dL (9-16); Calcium 8.8 mg/dL (8.4-10.2); Carbon Dioxide 26 mmol/L (22-29); Chloride 105 mmol/L (96-108); Creatinine Clr Calc Pharmacy 50.2; Estimated Glomerular Filt Rate > 60; Glucose Random 101 mg/dL (60-115); Potassium 4.3 mmol/L (3.3-5.1); Sodium 139 mmol/L (135-145)
--- NOTE | 2023-05-07 17:00 | MHC.HEMONC ---
Pt's son, Eliot, called and asked why scrips for pt's IR oxycodone and MS contin had not been sent. Nurse noted pt's MS Contin was sent to wrong pharmacy in [place], Dr. Cifuentes sent scrip to [facility]. Nurse called [facility], they said pt inexplicably had two pharmacy profiles, so other pharmacy laboratory technician couldn't see the scrips. 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 Pharmacist provided this nurse w/ other [facility] locations in the area w/ MS Contin in stock, which nurse shared w/ son Eliot. Dr. Cifuentes sent MS COntin scrip again to [facility] on in [place], per son's request.
--- NOTE | 2023-05-24 12:08 | MHC.HEMONC ---
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 Nurse informed pt's sonEliot. Original Note: Pt's son, Eliot, left VM on refill line, requested new scrip be sent for Oxycodone 5 mg PO Q4H PRN to pt's preferred pharmacy, [facility] [address] in [place]. Nurse sent request to covering provider, Dr. Clark, to send scrip.
--- NOTE | 2023-05-31 15:38 | MHC.HEMONC ---
Addendum entered by Sj Luna RN 05/31/23 17:25: Nurse called [facility] [address] after e-scrip was sent, but could not be verified . They reported not seeing any scrip. Dr. Cifuentes tried again, but same issue. Nurse to ask provider to try re-sending the following morning. Nurse notified pt's son, Eliot, of this plan by phone, to f/u w/ him tomorrow. Original Note: Pt's son, Eliot, called, requested new scrip for pt's MS Contin, to be [facility] [address] in [place]. Nurse sent message to Dr. Cifuentes to send the scrip.
--- NOTE | 2023-06-15 15:34 | MHC.HEMONC ---
Pt's son Eliot called, requests a new scrip for oxycodone 5 mg PO Q4H PRN be sent to [facility] on [address] Dr. Cifuentes was notified.
--- NOTE | 2023-06-24 11:55 | MHC.HEMONC ---
Refill call for MS Contin 60mg ER. MSG given to Dr nolen. Pt called to let them know refill was sent.
--- NOTE | 2023-07-01 16:18 | MHC.HEMONC ---
Pt here for port flush q [address] Cifuentes asked for labs. POrt to righ chest accessed, good blood return. cbc,cmp ordered and drawn off port. Port de accessed with heparin. Pt toll well. no redness or swelling at site. band aid applied. Calendar given with next port flush in 8 weeks. Refill for Oxycodone sent to pharmacy by Dr Cifuentes. Pt departed with son.
[2023-07-01 16:36] LABS: PLT CLUMP 1; Red Cell Distribution Width 13.4 % (11.0-16.0); SCAN SMEAR FLAG 1
[2023-07-01 16:38] LABS: Basophils Percent Auto 0.2 % (0-2); Eosinophils Absolute Auto 0.1 X10*3/uL (0.0-0.4); Hemoglobin 11.6 g/dl (12.0-16.0); Imm Gran Abs Auto 0.03 X10*3/uL (0.00-0.03); Imm Gran Pct Auto 0.7 % (0.0-0.4); Lymphocytes Absolute Auto 0.7 X10*3/uL (1.2-4.9); Lymphocytes Percent Auto 16.4 % (20-40); Mean Corpuscular HGB Conc 32.2 g/dl (31.0-35.0); Mean Corpuscular Hemoglobin 28.4 pg (27.0-33.0); Mean Platelet Volume 10.5 fL (9.4-12.3); Monocytes Absolute Auto 0.4 X10*3/uL (0.1-1.2); Monocytes Percent Auto 8.6 % (2-11); Neutrophils Percent Auto 72.1 % (45-73); Red Blood Count 4.09 X10*6/uL (4.20-5.50)
[2023-07-01 16:48] LABS: Alanine Aminotransferase 28 U/L (0-31); Albumin Level 4.1 g/dL (3.5-5.0); Alkaline Phosphatase 78 U/L (39-117); Anion Gap 11 (12-20); Aspartate Amino Transferase 25 U/L (5-31); Bilirubin Total 0.3 mg/dL (0.0-1.0); Blood Urea Nitrogen 14 mg/dL (9-16); Calcium 9.5 mg/dL (8.4-10.2); Carbon Dioxide 27 mmol/L (22-29); Chloride 104 mmol/L (96-108); Creatinine Clr Calc Pharmacy 46.2; Estimated Glomerular Filt Rate > 60; Glucose Random 145 mg/dL (60-115); Potassium 4.3 mmol/L (3.3-5.1); Sodium 138 mmol/L (135-145)
[2023-07-01 16:50] LABS: MANUAL DIFF FLAG NO; Platelet Count 117 X10*3/uL (160-400); White Blood Count 4.1 X10*3/uL (4.8-10.8)
--- NOTE | 2023-07-23 16:15 | MHC.HEMONC ---
Pt's son present in department-states he needs script for ms contin 60mg q 8 hours refilled today-states his mother is out of pain medication and is in pain. Dr Cifuentes notified and will refill script
[2023-08-06 14:12] LABS: MANUAL DIFF FLAG NO
[2023-08-06 14:15] LABS: Basophils Percent Auto 0.4 % (0-2); Eosinophils Absolute Auto 0.3 X10*3/uL (0.0-0.4); Eosinophils Percent Auto 6.1 % (0-4); Hematocrit 38.8 % (37.0-47.0); Hemoglobin 12.7 g/dl (12.0-16.0); Imm Gran Abs Auto 0.02 X10*3/uL (0.00-0.03); Imm Gran Pct Auto 0.4 % (0.0-0.4); Lymphocytes Absolute Auto 0.6 X10*3/uL (1.2-4.9); Lymphocytes Percent Auto 11.5 % (20-40); Mean Corpuscular HGB Conc 32.7 g/dl (31.0-35.0); Mean Corpuscular Hemoglobin 29.6 pg (27.0-33.0); Mean Corpuscular Volume 90.4 fL (80.0-98.0); Mean Platelet Volume 11.1 fL (9.4-12.3); Monocytes Absolute Auto 0.3 X10*3/uL (0.1-1.2); Monocytes Percent Auto 6.9 % (2-11); Neutrophils Absolute Auto 3.6 x10*3/uL (2.0-8.3); Neutrophils Percent Auto 74.7 % (45-73); Platelet Count 164 X10*3/uL (160-400); Red Blood Count 4.29 X10*6/uL (4.20-5.50); Red Cell Distribution Width 13.8 % (11.0-16.0); White Blood Count 4.8 X10*3/uL (4.8-10.8)
[2023-08-06 14:18] VITALS: BMI 22.3
[2023-08-06 14:20] VITALS: BP 166/77; PULSE 59; O2SAT 97
--- NOTE | 2023-08-06 14:21 | P.PNHO-ONC_ITS ---
Medical Summary - Medical Summary Date of Service: 08/06/23 Chief complaint: Follow-up for: Pancreatic carcinoma. Primary Care Provider: Malika Mayer MD Medical Summary: DIAGNOSIS: Pancreatic Cancer. CURRENT THERAPY: Completed Gemcitabine Abraxane., cycle 14, day 15. on 01/15. She then received: One cycle of Liposomal irinotecan with 5 FU leucovorin on 02/17. She did not tolerate it. She was subsequently started on gemcitabine Abraxane. She received treatment 21 on 09/04. Started Capecitabine on 11/03/22. Completed cycle 5. Now off. Interval History Interval history: This is a pleasant 72 year-old lady, here for a follow up visit. She says she is not doing too well. She had increased pain, involving the upper abdomen and back. She was seen by pain management. She had nerve blocks last Wednesday. It controlled the pain somewhat, but not completely. If she is active she feels the pain. She takes MS Contin 3 times a day and the oxycodone every 4 hours as needed. She has been having panic attacks. Her energy level is quite low. She has had an occasional headache. Denies dizziness. Denies fever but has chills. She has dysphagia, to solids. She denies any chest pain or trouble breathing. She has had nausea. The Zofran is helping that. Sometimes she gets loose bowels. Her apetite is low, she has lost weight. She complains of body aches. She has had some anxiety. Her spirits are down. Rest of the review of systems is unremarkable. She has moved in with her son in [place]. Previous history: She was admitted to [facility] for a couple days for shortness of breath dizziness and frequent falls. She started the Xeloda on 11/03/22. She was seen in the [facility] ER on Wednesday last month, for shortness of breath and belly pain. She had blood work urine and CT scans which were stable. She was seen in house. She presented to the hospital with complaints of abdominal pain. She complained of pain all over , on her abdomen, back, chest, legs. She reported that the abdominal pain had been going on for 2 months but worsened over the past 3 days. The pain is generalized abdominal pain, 8/10, intermittent, nonradiating, associated with nausea and vomiting. She also had occasional chills with no fever. She reported the pain to be just generalized discomfort. When asked about weight loss she reports about 1-2 lb of weight loss but not more. She also complained of years of shortness of breath with no change. She denied urinary symptoms and no lower extremity edema. Patient also complained of bloating, and low appetite. Her temp was 98.6?, pulse rate of 69, respiratory rate of 19, and oxygen saturation of 95% on room air. Labs: significant for PT of 27.7 INR of 2.3, sodium of 130, BUN of 11 with creatinine of 0.77, troponin 38 trended down to 37, BNP of 259, CT abdomen showed: New mass in the head neck and body of the pancreas measuring 4.5 x 6.5 cm worrisome for neoplasm. New bilateral pulmonary nodules. Upper abdominal varices. Large esophageal hernia, or intrathoracic stomach. Diverticulosis of the colon. Probable small uterine fibroid. Hospital course: The patient was evaluated for abdominal pain. I recommended, Biopsy of the pancreas. Discussed with IR who recommended holding both aspirin and warfarin for 3 days prior to procedure which was to be scheduled for next Wednesday. After discussing with the patient, she preferred to come back at the time of the biopsy. Her INR of 1.6 at the day of discharge. She was noted to have hyponatremia which seems to be chronic around 130-131. BNP was noted to be mildly elevated around 200 which was the baseline for her, looking back at her previous readings. Not in acute CHF exacerbation. les. Upper abdominal varices. Large esophageal hernia Sometimes she loses a sense of taste and smell. She had COVID about a year ago. Past medical history: Diabetes, COPD, CVA, hypertension. Review of Systems - Constitutional Reports no additional constitutional complaints, Reports anorexia, Reports fatigue, Reports lack of energy, Reports malaise, Reports weight loss - Eyes Reports no additional eye complaints - ENT Reports no additional ear, nose, mouth, and throat complaints - Cardiovascular Reports no additional cardiovascular complaints - Respiratory Reports no additional respiratory complaints - Gastrointestinal Reports no additional gastrointestinal complaints, Reports nausea Comments: Dysphagia - Genitourinary Reports no additional female genitourinary complaints - Musculoskeletal Reports no additional musculoskeletal complaints - Integumentary/Breasts Skin/Breast: Reports no additional skin complaints - Neurologic Reports no additional neurologic complaints, Reports headache(s), Denies loss of vision, Reports weakness - Psychiatric Reports no additional psychiatric complaints - Endocrine Reports no additional endocrine complaints - Hematologic/Lymphatic Reports no additional hematologic/lymphatic complaints - Allergic/Immunologic Reports no additional allergic/immunologic complaints [facility] Medical History: Medical History (Last Reviewed 08/06/23 @ 14:22 by Tyler Gillespie) Anxiety and depression Biventricular ICD (implantable cardioverter-defibrillator) in place Cardiomyopathy Congestive heart failure COPD (chronic obstructive pulmonary disease) Coronary artery disease Current use of anticoagulant therapy CVA (cerebral vascular accident) Diverticulitis Esophageal hernia GERD (gastroesophageal reflux disease) History of renal calculi HTN (hypertension) Hypercholesterolemia Hyponatremia Osteopenia Type 2 diabetes mellitus with hyperglycemia Umbilical hernia Functional capacity: uses cane/walker Patient : No Family History: Family History (Last Reviewed 08/06/23 @ 14:22 by Tyler Gillespie) Father Medical history unknown Mother Diabetes Hypertension Surgical History: Surgical History (Last Reviewed 08/06/23 @ 14:22 by Tyler Gillespie) History of hemicolectomy History of incisional hernia repair History of pacemaker Social History: Social History (Last Reviewed 08/06/23 @ 14:22 by Tyler Gillespie) Living Situation History: Household Members: Family Housing: House Are you a primary intensive care nurse to a significant other at home: No Do you presently have visiting nurse or other home services: No Tobacco History: Patient Tobacco Use Status: Never used Tobacco e-Cigarette/Vaping Use: Never Used Second Hand Smoke Exposure: No Advance Directives: Advance Directives Date on File: 02/17/22 Occupation Assessmet: service: No Current occupational status: retired Oncology Screenings - ECOG Performance Status ECOG Performance Status: 1 Home Medications and Allergies Home Medications Medication Instructions Recorded Confirmed Type albuterol sulfate 90 mcg/actuation 2 puff inhalation Q4H PRN 10/06/22 08/06/23 History aerosol inhaler Respiratory Distress fluticasone furoate 200 1 ea inhalation DAILY 05/14/23 08/06/23 History mcg-vilanterol 25 mcg/dose inhalation powder (Breo Ellipta) food supplemt, lactose-reduced 1 ea PO DAILY 07/15/23 08/06/23 History (Ensure oral liquid) Allergies Allergy/AdvReac Type Severity Reaction Status Date / Time No Known Allergies Allergy Verified 08/06/23 14:22 Exam Vital signs: Vital Signs Temp 97.4 F 04/06/23 13:29 Pulse 59 08/06/23 14:20 Resp 12 11/30/22 08:57 BP 166/77 H 08/06/23 14:20 Pulse Ox 97 08/06/23 14:20 O2 Del Method Room Air 08/06/23 14:20 Intake & Output 08/05/23 08/06/23 08/06/23 18:59 06:59 18:59 Other: Weight 52.4 kg [place] Weight in Grams 18198 Weight 52.4 kg BMI result Body Mass Index 22.3 - Constitutional Present: no acute distress, mild distress - Routine HEENT Exam Head: Present: normal inspection Eye: Present: normal appearance ENT: Present: mucous membranes moist - Routine Neck Exam Present: full ROM - Routine Respiratory Exam Present: CTAB - Routine Cardiovascular Exam Cardiovascular: Present: RRR, S1, S2 - Routine Abdominal Exam Present: soft, tenderness. Absent: nontender - Routine Rectal Exam Patient deferred: digital exam - Routine Extremities Exam Present: nontender - Routine Back/Spine/Pelvis Exam Back/Spine: Present: full ROM - Routine Skin Exam Present: intact - Routine Neurological Exam Present: alert, oriented X3 - Routine Psychiatric Exam Present: normal affect Data - Labs CBC & Chem 7: 08/06/23 14:11 08/06/23 14:11 Assessment and Plan Patient Active problem list reviewed?: Yes (1) Pancreatic carcinoma Status: Acute Assessment and plan: This is a pleasant 70 year-old lady who presents with a couple of months history of abdominal pain that recently worsened. CT scan of the abdomen revealed: New mass in the head, neck and body the pancreas measuring 4.5 x 6.5 cm worrisome for neoplasm. New bilateral pulmonary nodules. Upper abdominal varices. Large esophageal hernia or intrathoracic stomach. Diverticulosis of the colon. Probable small uterine fibroid. Concern was for pancreatic cancer. Tumor marker Ca 19/9 is :4524. Biopsy was done on 11/12. Pathology revealed: Positive for atypical mucinous neoplasm. Moderately cellular specimen consisting of sheets of mucinous epithelium with cytologic atypia characterized by loss of clarity an irregularly shaped nuclei with Dr. chromatin in irregular nuclear membrane. Differential diagnosis includes an adenocarcinoma, mucinous cystic neoplasm and intraductal papillary mucinous neoplasm. I will proceed with a PET scan for further evaluation. This was done on 12/03, and revealed: Mild FDG activity in the pancreatic mass involving the head and adjacent pancreatic body corresponding to the recently biopsied malignancy. Multiple predominantly subcentimeter pulmonary nodules are present throughout the lungs likely represent metastases. Most of these are too small to be characterized on the PET images but the largest shows FDG activity. No additional abnormality suspicious for metastatic or other malignant lesions are noted. Chronic left posterior parietal cerebral infarction Large hiatal hernia.. My plan was to proceed with systemic chemotherapy. She has been started on gemcitabine and Abraxane based regimen. After she had 3 cycles, he had CT scan. Repeat imaging from 04/04: CT abdomen: No appreciable change in the mass in the body of the pancreas from October [address] chest: Multiple bilateral pulmonary nodules not appreciably changed from previous PET/CT scan November 2020. Enlarged heart. Large esophageal hernia or intrathoracic stomach. I discussed the CT scan results with her, told her that even though there has not been much decrease in size of the tumor things do appear stable. Stable disease is considered a response to treatment. Hopefully things will decrease with the continued chemotherapy. She has been tolerating it well. She complains of intermittent diarrhea, after chemotherapy. CT scan of the abdomen from April 04: No appreciable change in the mass in the body of the pancreas from October [address] chest from April 04: Multiple bilateral pulmonary nodules not appreciably changed from previous PET/CT scan November 2020. Enlarged heart. Large esophageal hernia or intrathoracic stomach. She had a CT scan of the chest and abdomen on 08/22 which revealed: Previously described large 7 mm pulmonary nodules are smaller. No new pulmonary nodules are seen. A hypodense mass in the body of the pancreas and encasement surrounding the SMA is stable. The tail of the pancreas is not visualized, similar to previous study. No abnormal chest, abdomen and pelvic lymphadenopathy. Stable calcified left fibroid and right paramidline hernia containing fat and bowel loops. Moderate constipation. She is tolerating the treatment well. CA 19-9 was down to 1878 in August, 5 in May, from 4855 in November. On 03/10: 6267. Most recently went up to 2550. l re-staged her with another CT scan. CT chest revealed:. Interval increase in size in some of the larger pulmonary nodules compared to August 2021 exam. I had shared the results with her and her son, at her last visit. Explained to them that it appears that the disease is getting refractory to the current regimen. I will need to switch her to a different protocol. Oxaliplatin with 5 FU and leucovorin, would be 1 option.. I went over the details of the treatment including the pros and the cons. Explained the procedure for the Port-A-Cath placement as well as the risks and benefits of it. She had a Port-A-Cath placed for that. She needed time to think and reflect. She recieved one cycle on 02/17. She did not tolerate it well. She had some nausea abdominal pain and diarrhea. She mentions some blood in the stools. That is going away however she is still feeling rather fatigued. She does not wish to continue that regimen. She and her son are concerned that there were few treatment delays with the Gemzar Abraxane and that could have accounted for the progression seen on the CT scan. They wanted to go back to that regimen since she was tolerating well. She was restarted on Gemzar and Abraxane based regimen. She has been tolerating it well. CA 19-9 from 06/11:4537. CT scan of the abdomen and pelvis from 06/24: Stable pancreatic mass. Stable adenopathy. CT of the chest from 06/24: Slight interval increase in size in bilateral pulmonary nodules. CA 19-9: 09/18:6009. 08/20:6165. Her disease had been holding quite stable, till recently. She had felt more symptomatic, with complaints of increased epigastric and back pain,feeling more tired and short of breath. . I felt the treatment was catching up with her. I discussed with her and her son. She did not wish to continue on the chemotherapy, at least the IV meds. Together we decided to hold off on the current regimen. She would not mind taking oral chemotherapy. I offered her oral Xeloda, as second-line therapy. She wanted to try it. Baseline CA 19-9: 7407. She started it on 11/03/22. She had nausea and hand-foot syndrome. I advised her to take the Zofran on a scheduled basis Asked her to use Aquaphor, for the skin of the hands. I decreased the dose to 1000 mg b.i.d.. It does appear to be better tolerated. Ca 19/9: 9273. Scan of the abdomen from 02/15 revealed: Interval increase in size in the mass in the pancreas and adjacent lymph nodes. There is a significant vascular involvement and the splenic vein is occluded. Varices. Slightly enlarged fatty liver. No focal liver lesion. Large esophageal hernia or intrathoracic stomach. Diverticulosis and constipation. At her last visit, I shared the above results with her and her family. Explained that unfortunately the keeps item in does not appear to be working, since there is progression seen on the CT scans. My concern was that she is having significant toxicity from the treatment, without providing much benefit. She would have better quality of life, without the capecitabine. She actually has felt better since she came off of it. However she is concerned about not being on any anti tumor therapy. I explained to her that she may have better quality and quantity of life since, she would be at risk of significant treatment related toxicity. I had referred them to hospice. They made an informational visit. However the son felt he did not 1 the mom not to be able to get medical care or go to the hospital if needed. So they declined. She had increasing pain issues. I referred her to pain management, since the high doses of narcotics were still not controlling the pain. She received a nerve block, last Wednesday. It has not fully kicked in yet. She has had dysphagia. She is scheduled for a barium study. This was up to 09/01.booked for 09/21 however I was able to move it up. PLAN: Meanwhile I will refill her MS Contin and oxycodone prescriptions, once they are due. She will return in 1 month for port flush and in 3 months for a follow-up. I again offered hospice however they feel they are able to manage so far. Thanks, CC: Dr. Mayer. - Time Spent With Patient Time Spent with Patient (in minutes): 30
[2023-08-06 14:29] LABS: Alanine Aminotransferase 309 U/L (0-31); Albumin Level 4.1 g/dL (3.5-5.0); Alkaline Phosphatase 913 U/L (39-117); Anion Gap 12 (12-20); Aspartate Amino Transferase 258 U/L (5-31); Bilirubin Total 2.9 mg/dL (0.0-1.0); Blood Urea Nitrogen 12 mg/dL (9-16); Calcium 9.5 mg/dL (8.4-10.2); Carbon Dioxide 29 mmol/L (22-29); Chloride 98 mmol/L (96-108); Creatinine Clr Calc Pharmacy 43.9; Estimated Glomerular Filt Rate > 60; Glucose Random 302 mg/dL (60-115); Potassium 4.6 mmol/L (3.3-5.1); Sodium 134 mmol/L (135-145); Total Protein 7.3 g/dL (6.5-8.0)
--- NOTE | 2023-08-18 13:23 | MHC.HEMONC ---
Triage - Pt'sson called to request for a Rx refill of Morphine. Msg sent to Dr Cifuentes
--- NOTE | 2023-08-19 15:57 | MHC.HEMONC ---
Triage call-pt's son called requesting refill on morphine 60 mg q [address] Cifuentes notified verbally -sone called and notified that script was being sent shortly
--- NOTE | 2023-08-26 14:48 | MHC.HEMONC ---
Port accessed, labs drawn, flushed with saline and heparin then deaccessed. Pt aware of next appt. Calendar provided.
--- NOTE | 2023-08-27 08:41 | MHC.HEMONC ---
Chemistry results given to Dr Cifuentes to review
--- NOTE | 2023-08-31 16:50 | MHC.HEMONC ---
triage- Pt's son called to request a refill of oxycodone. msg sent to the provider
--- NOTE | 2023-09-17 16:06 | MHC.HEMONC ---
Triage- Pt's son called to request a refill of morphine. Msg sent to Dr Cifuentes
--- NOTE | 2023-09-17 17:02 | MHC.HEMONC ---
Triage- Pt's son called. He requested to speak w/you because considering hospice care for his mum. Eliot requested a call back Wednesday. Msg sent to Dr Cifuentes
--- NOTE | 2023-09-20 10:38 | MHC.HEMONC ---
Hospice referral sent to [facility] at Dr Cifuentes's request after speaking with family on Wednesday.
--- NOTE | 2023-09-21 12:28 | MHC.HEMONC ---
Triage- Pt's son called to request a refill of Oxycodone. msg sent to Dr Cifuentes
--- NOTE | 2023-09-22 09:53 | MHC.HEMONC ---
[facility] has had trouble reaching Kalani's son, Eliot. I spoke with him and he said they reached him and they will admit to Hospice Wednesday. i have asked Dr Clark to refill her oxycodone at pt request.
== END 2023-11-08 | disposition home or self-care (01) ==
LOC: HO.ONC 14:30
PROVIDERS: PCP Internal Medicine; Visit Provider Internal Medicine Medical Oncology
DX: C25.8 Malignant neoplasm of overlapping sites of pancreas (principal); R91.8 Other nonspecific abnormal finding of lung field; Z79.891 Long term (current) use of opiate analgesic; Z79.899 Other long term (current) drug therapy
CPT/HCPCS: 36415; 36591; 51720; 80053; 83735; 85025; 85610; 86301; 86704; 86706; 87340; 90471; 90686; 94640; 96360; 96361; 96366; 96367; 96372; 96375; 96413; 96415; 96417; 96523; 99211; 99213; 99214; J0461; J0640; J1100; J1200; J1642; J2405; J8540; J9190; J9201; J9205; J9264; Q3014

== ENCOUNTER 2023-09-01 10:36 | Outpatient (REF) | payer OTHER, SELFPAY ==
--- NOTE | ~2023-09-01 | FL_ITS ---
EXAMINATION: AIR-CONTRAST UPPER GI EXAMINATION CLINICAL INFORMATION: Dysphasia. COMPARISON: 08/26/2020. TECHNIQUE: Air-contrast upper GI examination. FLUOROSCOPY TIME: 3 minutes and 17 seconds. DAP: 946.3 microgray meter squared. FINDINGS: There is normal apposition of the vocal cords while saying E. There is normal elevation of the soft palate while saying candy. Patient swallowed thin and thick barium and a half-inch diameter barium tablet without difficulty. No nasopharyngeal reflux or tracheal aspiration were identified. No persistent esophageal stricture was noted. No mucosal abnormality was seen. There was noted to be a central amotility of the esophagus when prone and supine. Due to this any gastroesophageal reflux evaluation was very limited. There is a large hiatal hernia present. No definite gastric ulcer or suspicious mass appreciated. There appears to be normal distensibility of the stomach. There is no delay in gastric emptying. Duodenal bulb appears unremarkable. There is a moderate-sized duodenal diverticulum off the 2nd portion of the duodenum. FL/FL upper GI w Ba Swallow IMPRESSION: 1. Amotility of the esophagus. 2. Large hiatal hernia. 3. Duodenal diverticulum off the 2nd portion of duodenum.
== END 2023-09-01 10:37 | disposition home or self-care (01) ==
LOC: HO.XRAY 10:36
PROVIDERS: PCP Internal Medicine; Visit Provider Nurse Practitioner Family
DX: R13.10 Dysphagia, unspecified (principal)
CPT/HCPCS: 74240

== ENCOUNTER → 2023-09-01 10:40 | Outpatient (BNV) | payer OTHER, SELFPAY | PROVIDERS: PCP Internal Medicine; Visit Provider Radiology Diagnostic Radiology | DX: R13.10 Dysphagia, unspecified (principal) | CPT/HCPCS: 74246 ==